=== PATIENT | female | born 1950 | race Caucasian/White ===

== ENCOUNTER → 2018-07-20 06:28 | Outpatient (CLI) | payer MEDICARE, SELFPAY ==
--- NOTE | 2018-07-20 06:37 | MRI_ITS ---
STUDY: MRI LUMBAR SPINE WITH AND WITHOUT CONTRAST REASON FOR EXAM: Female, 68 years old. Radiculitis. Bilateral leg pain. Prior surgical fusion. TECHNIQUE: Standardized fat and water weighted pulse sequences were obtained in the sagittal and axial planes. Dotarem 20 IV was administered for the contrast portion of the examination. COMPARISON: March 17, 2014 report. No images available. FINDINGS: Lumbar straightening. No significant scoliosis. Conus medullaris terminates normally at the L2 level. Posterior spinal fixation at L4 and L5 with multilevel laminectomy. Surgical scar. Paraspinal muscle atrophy. Expected enhancing surgical scar at the L4-5 and L5-S1 levels. No unexpected contrast enhancement. T12 superior endplate Schmorl's node. T12-L1: Normal endplates. Normal disc height, hydration and morphology. Normal bilateral facet joints. Normal central canal and bilateral lateral recesses. Normal bilateral intervertebral neural foramina. L1-2: Normal endplates. Normal disc height, hydration and morphology. Normal bilateral facet joints. Normal central canal and bilateral lateral recesses. Normal bilateral intervertebral neural foramina. L2-3: Normal endplates. Minimal disc desiccation. Normal bilateral facet joints. Normal central canal and bilateral lateral recesses. Normal bilateral intervertebral neural foramina. L3-4: Normal endplates. Minimal disc desiccation. Facet joint arthrosis. Mild central canal narrowing. Normal bilateral lateral recesses. Normal bilateral intervertebral neural foramina. Ligamentous hypertrophy contributes to central canal narrowing. L4-5: Mild endplate spondylosis. Disc bulge/uncovering without central canal narrowing. Moderate facet joint arthrosis. Normal central canal and bilateral lateral recesses. Bilateral neural foraminal narrowing without impingement. Intervertebral disc spacer. Grade 1 spondylolisthesis. L5-S1: Minimal endplate spondylosis. Left paracentral mixed scar/disc protrusion measuring 10 mm x 15 mm (axial image 2 series 5). Mild facet joint arthrosis. Left lateral recess narrowing with impingement. Bilateral neural foraminal narrowing with impingement on the left. Central canal decompression. Sacrum intact. Mild paraspinal muscle atrophy. Noncystic right renal lesion measuring 2.2 cm (axial image 16 series 5). Abnormal appearing nondilated distal aorta and iliac vessels ((axial images 3 through 26 series 8). MRI/Spine Lumbar W/WO Contrast IMPRESSION: L5-S1 left paracentral mixed scar/disc protrusion with surgically decompressed central canal L5-S1 left lateral recess and left neural foraminal narrowing with impingement L4-5 grade 1 spondylolisthesis with endplate spondylosis, disc spacer/disc uncovering and facet arthrosis L4-5 neural foraminal narrowing without impingement L3-4 ligamentous hypertrophy/facet joint arthrosis contributing to central canal narrowing Abnormal appearing nondilated distal aorta and iliac vessels (recommend contrast enhanced CT scan follow-up) Noncystic 2.2 cm right renal lesion (recommend contrast enhanced CT scan or MRI follow-up) Electronically Signed: Ricky Perkins DO at 12:44 EDT Tel , Service support ,
[2018-07-20 06:56] LABS: CREATININE FINGERSTICK 1.2 mg/dL (0.55-1.02)
== END ==
PROVIDERS: Family Provider Family Medicine; PCP Family Medicine; Referring Provider Family Medicine; Visit Provider Family Medicine
DX: M54.16 Radiculopathy, lumbar region (principal); Z01.812 Encounter for preprocedural laboratory examination
CPT/HCPCS: 72158; A9575

== ENCOUNTER → 2018-08-04 14:41 | Outpatient (CLI) | payer MEDICARE, SELFPAY ==
--- NOTE | 2018-08-04 14:46 | CT_ITS ---
STUDY: CT ABDOMEN AND PELVIS WITH CONTRAST REASON FOR EXAM: Female, 68 years old. Right renal mass. RADIATION DOSAGE (If Supplied By Facility): CTDIvol = ( 16.48 ) mGy, DLP = ( 1199.85 ) mGycm TECHNIQUE: Transaxial images were obtained from the dome of the diaphragm to the symphysis pubis without oral contrast. 100 IV Isovue 300 was administered. Sagittal and coronal images were reconstructed. Individualized dose optimization techniques were used for this CT. COMPARISON: None. FINDINGS: Mild degree of increased linear markings at the right lung base with subpleural blebs. Coronary artery calcification. There is decreased attenuation of the liver consistent with steatosis. There are surgical clips in the gallbladder fossa consistent with a prior cholecystectomy. Normal spleen. Normal pancreas. There is a small, circumscribed, smooth, low attenuation right adrenal mass, consistent with an adrenal adenoma. It measures 1.8 cm. Normal left adrenal gland. There is a 2.3 cm x 2.3 cm rounded hypodense nodule arising from the posterior inferior aspect of the right kidney. At that site, there is evidence of a cortical defect deep to this nodular density. This is an atypical cyst. Correlation with ultrasound is recommended for further evaluation. Normal left kidney. Normal visualized stomach. Normal small intestine. There are scattered colonic diverticula consistent with diverticulosis. The appendix is visualized and appears normal. There is diffuse atherosclerotic calcification of the abdominal aorta and the major visceral branches, without a demonstrated aneurysm. A femoral-femoral bypass graft is seen overlying the anterior lower pelvis. There is evidence of a left aortic iliac artery graft. There is occlusion of the right common iliac artery as well as the left common iliac artery with stents within. Normal inferior vena cava. Normal retroperitoneum. Normal urinary bladder. There is a small umbilical hernia containing mesentery. There is no evidence of bowel within the hernia. The patient is status post fusion at the L4-L5 level with laminectomy and prosthetic disc placement. There is evidence of disc space narrowing and grade 1 anterolisthesis of L4 on L5. CT/Abdomen/Pelvis WITH Contrast IMPRESSION: 2.3 cm x 2.3 cm rounded hypodense nodule in the posteroinferior aspect of the right kidney. This not a typical cyst. Correlation with ultrasound is recommended for further evaluation. Small right adrenal adenoma. Electronically Signed: Dany Crabtree, at 9:50 EDT , Service support ,
[2018-08-04 14:56] LABS: CREATININE FINGERSTICK 1.5 mg/dL (0.55-1.02)
== END ==
PROVIDERS: Family Provider Family Medicine; PCP Family Medicine; Referring Provider Urology; Visit Provider Urology
DX: N28.89 Other specified disorders of kidney and ureter (principal)
CPT/HCPCS: 74177

== ENCOUNTER → 2018-08-14 13:24 | Outpatient (CLI) | payer MEDICARE, SELFPAY ==
[2018-08-14 15:48] LABS: Anion Gap 6 (5-15); BUN 18 mg/dL (7-18); Calcium,Total 8.2 mg/dL (8.5-10.1); Chloride 105 mmol/L (98-107); EST Glomerular Filtration Rate 47 mL/min (>60); Est Glom Filt Rate - Afr Amer 57 mL/min (>60); Glucose 179 mg/dL (74-106); Potassium 4.3 mmol/L (3.5-5.1); Sodium Level 138 mmol/L (136-145)
== END ==
LOC: BFHLAB 13:25 → LAB 15:15
PROVIDERS: Family Provider Family Medicine; PCP Family Medicine; Referring Provider Family Medicine; Visit Provider Family Medicine
DX: I10 Essential (primary) hypertension (principal)
CPT/HCPCS: 36415; 80048

== ENCOUNTER → 2018-08-24 10:04 | Outpatient (CLI) | payer MEDICARE, SELFPAY ==
[2018-08-24 12:33] LABS: Anion Gap 5 (5-15); BUN 28 mg/dL (7-18); BUN/Creat Ratio 21.1 RATIO (10-20); Calcium,Total 8.2 mg/dL (8.5-10.1); Chloride 104 mmol/L (98-107); Creatinine, Serum 1.33 mg/dL (0.55-1.02); EST Glomerular Filtration Rate 42 mL/min (>60); Est Glom Filt Rate - Afr Amer 51 mL/min (>60); Glucose 224 mg/dL (74-106); Potassium 3.9 mmol/L (3.5-5.1); Sodium Level 136 mmol/L (136-145)
== END ==
PROVIDERS: Family Provider Family Medicine; PCP Family Medicine; Visit Provider Family Medicine
DX: I10 Essential (primary) hypertension (principal); E11.9 Type 2 diabetes mellitus without complications
CPT/HCPCS: 36415; 80048

== ENCOUNTER → 2019-04-13 14:21 | Outpatient (CLI) | payer MEDICARE, SELFPAY ==
[2019-04-13 17:44] LABS: Absolute Lymphocyte Count 1.46 X10^3/uL (0.83-4.51); Absolute Neutrophil Count 3.6 X10^3/uL (2.0-7.7); Basophil# 0.02 X10^3/uL; Basophil% 0.4 % (0-1); Eosinophil# 0.23 X10^3/uL; Hematocrit 34.3 % (37-47); Hemoglobin 10.5 g/dL (12.0-15.0); Lymphocyte # 1.46 X10^3/ul (4.0); Lymphocyte % 25.7 % (19-41); Mean Corp Hgb Conc 30.6 g/dL (32-36); Mean Corpuscular Hgb 28.2 pg (27.0-32.0); Mean Platelet Vol. 10.5 fl (6.2-12.0); Monocyte# 0.38 X10^3/uL; Monocyte% 6.7 % (0-10); NRBC Flagged by Analyzer 0 % (0-5); Neutrophil # 3.58 X10^3/uL (2.7-7.7); Neutrophil % 62.8 % (47-70); Platelet Count 141 K/mm3 (150-450); RBC Distribution Width CV 14.6 % (11.6-14.6); RBC Distribution Width SD 49.7 fl (35.1-43.9); Red Blood Count 3.73 M/mm3 (4.2-5.4); White Blood Count 5.7 K/mm3 (4.4-11.0)
[2019-04-13 18:06] LABS: Vitamin B12 295 pg/mL (211-911)
[2019-04-13 18:07] LABS: ALB/GLOB Ratio 0.8 RATIO (0.9-2.4); AST(SGOT) 19 U/L (15-37); Alanine Aminotransfer ALT/SGPT 18 U/L (13-56); Albumin, Serum 3.1 g/dL (3.2-5.0); Alkaline Phosphatase 77 U/L (45-117); Anion Gap 6 (5-15); BUN 15 mg/dL (7-18); BUN/Creat Ratio 13.8 RATIO (10-20); Calcium,Total 8.4 mg/dL (8.5-10.1); Chloride 111 mmol/L (98-107); Creatinine, Serum 1.09 mg/dL (0.55-1.02); EST Glomerular Filtration Rate 53 mL/min (>60); Est Glom Filt Rate - Afr Amer 64 mL/min (>60); Globulin 3.9 g/dL (2.2-4.2); Glucose 138 mg/dL (74-106); Iron 34 ug/dL (50-170); Sodium Level 142 mmol/L (136-145); Thyroid Stim Hormone (TSH) 1.53 uIU/mL (0.358-3.74)
== END ==
PROVIDERS: Family Provider Family Medicine; PCP Family Medicine; Visit Provider Family Medicine
DX: I10 Essential (primary) hypertension (principal); E11.9 Type 2 diabetes mellitus without complications; D64.9 Anemia, unspecified; R53.83 Other fatigue
CPT/HCPCS: 36415; 80053; 82607; 83540; 84443; 85025

== ENCOUNTER 2019-06-27 12:55 | Observation (INO) | payer MEDICARE, SELFPAY ==
[2019-06-27] VITALS (13 sets, daily range): BP systolic 141–235; BP diastolic 35–90; PULSE 59–75; RESP 16–18; TEMP 36.2–37.1; O2SAT 95–98; BMI 32.8; BMI 34.1
--- NOTE | 2019-06-27 13:17 | EKG12_ITS ---
Test Reason : CP Blood Pressure : / mmHG Vent. Rate : 071 BPM Atrial Rate : 071 BPM P-R Int : 154 ms QRS Dur : 076 ms QT Int : 420 ms P-R-T Axes : 059 043 062 degrees QTc Int : 456 ms Normal sinus rhythm Septal infarct , age undetermined Abnormal ECG Confirmed by ANGELICA MEDINA ([id number]), copy editor SHAWN RIDLEY ([id number]) on 06/30/2019 2:53:35 PM Referred By: EVAN/RAN Confirmed By:ANGELICA MEDINA
--- NOTE | 2019-06-27 13:17 | RAD_ITS ---
STUDY: X-RAY CHEST REASON FOR EXAM: Female, 69 years old. Chest pain TECHNIQUE: Frontal view of the chest COMPARISON: X-Ray Chest March 09, 2010 FINDINGS: Pulmonary vascular prominence is present without rey edema or consolidation. There are no pleural effusions. There is no pneumothorax. The heart is normal in size. The visualized osseous structures are within normal limits. RAD/Chest 1 View (Portable) IMPRESSION: Pulmonary vascular prominence without rey edema or consolidation. Electronically Signed: Hector Stone, at 14:19 EST Tel , Service support ,
[2019-06-27] MEDS: 0.9% Normal Saline 1,000 ML 150 ML IV (14:04)
[2019-06-27 14:15] LABS: Absolute Lymphocyte Count 1.34 X10^3/uL (0.83-4.51); Absolute Neutrophil Count 4.6 X10^3/uL (2.0-7.7); Basophil# 0.02 X10^3/uL; Basophil% 0.3 % (0-1); Eosinophil# 0.22 X10^3/uL; Eosinophils% 3.4 % (0-5); Hematocrit 35.1 % (37-47); Hemoglobin 10.7 g/dL (12.0-15.0); Lymphocyte # 1.34 X10^3/ul (4.0); Lymphocyte % 20.4 % (19-41); Mean Corp Hgb Conc 30.5 g/dL (32-36); Mean Corpuscular Volume 91.9 fL (81-99); Mean Platelet Vol. 9.5 fl (6.2-12.0); Monocyte# 0.37 X10^3/uL; Monocyte% 5.6 % (0-10); NRBC Flagged by Analyzer 0 % (0-5); Neutrophil % 70.1 % (47-70); Platelet Count 128 K/mm3 (150-450); RBC Distribution Width CV 16.1 % (11.6-14.6); RBC Distribution Width SD 54.4 fl (35.1-43.9); Red Blood Count 3.82 M/mm3 (4.2-5.4); White Blood Count 6.6 K/mm3 (4.4-11.0)
[2019-06-27 14:30] LABS: Anion Gap 3 (5-15); BUN 17 mg/dL (7-18); BUN/Creat Ratio 14.9 RATIO (10-20); Calcium,Total 8.8 mg/dL (8.5-10.1); Chloride 110 mmol/L (98-107); Creatinine, Serum 1.14 mg/dL (0.55-1.02); EST Glomerular Filtration Rate 50 mL/min (>60); Est Glom Filt Rate - Afr Amer 61 mL/min (>60); Estimated Creatinine Clearance 44.65 ml/min; Glucose 184 mg/dL (74-106); Potassium 4.2 mmol/L (3.5-5.1); Sodium Level 141 mmol/L (136-145)
[2019-06-27 14:35] LABS: Mucous, Urine 0 SEEN /hpf (<or=2+); Red Blood Cells-Urine 0 SEEN /hpf (0-5); Squamous Epithelial Cells - UA 0 SEEN /hpf (5-10)
[2019-06-27 14:37] LABS: Color, Urine Yellow (Yellow); Glucose, Dipstick Normal (Normal); Ketone-Dipstick Negative (Negative); Leukocyte Esterase-Dipstick 25 /ul (Negative); Nitrite-Dipstick Positive (Negative); Occult Blood-Urine 10 /ul (Negative); Protein-Dipstick 100 mg/dl (Negative); Specific Gravity, Urine 1.015 (1.002-1.030); Urine Bilirubin Dipstick Negative (Negative); Urine Clarity Clear (Clear); Urine Urobilinogen Normal (Normal); Urine pH 6.5 (5.0 - 8.0)
[2019-06-27 14:40] LABS: D-Dimer Quantitative (DVT/PE) 1.08 FEU/ug/m (0.27-0.49)
[2019-06-27 14:50] LABS: Bacteria 3+ /hpf (None Seen); White Blood Cells 5-10 SEEN /hpf (0-5)
--- NOTE | 2019-06-27 14:54 | CT_ITS ---
STUDY: CTA CHEST REASON FOR EXAM: Female, 69 years old. CHEST PAIN, ELEVATED BP RADIATION DOSAGE (If Supplied By Facility): CTDIvol = ( 12.66 ) mGy, DLP = ( 539.03 ) mGycm TECHNIQUE: The examination was performed with the intravenous administration of IV 100mL Isovue-370. Post-processing of the angiographic images was performed, with multiplanar reformation and 3D reconstruction. Individualized dose optimization techniques were used for this CT. COMPARISON: None. FINDINGS: There is a small ventral fat-containing hernia. Normal enhancement of the main pulmonary artery and right and left pulmonary arteries. Normal enhancement of the bilateral peripheral pulmonary arteries. There is no demonstrated pulmonary embolism. Normal thoracic aorta and visualized great vessels. There is no demonstrated aortic dissection. Normal heart and pericardium. Coronary artery calcifications are present. Normal mediastinum. Normal hilar regions. Normal visualized trachea and bronchi. The lungs are well expanded. Mild to moderate emphysema is present. There is mild peripheral interstitial thickening/groundglass opacification. Several scattered right upper lobe groundglass opacities are present. There is no consolidation. Normal pleura. Normal chest wall structures. Areas of mild endplate compression are present in the thoracic spine. Mild multilevel osteophytosis is present. Normal visualized upper abdomen. CT/CTA Chest W/WO Contrast IMPRESSION: No evidence of pulmonary embolism. [id number] emphysema. Mild peripheral interstitial thickening/ground glass opacification and several scattered right upper lobe groundglass opacities, possibly secondary to mild infectious or inflammatory process. No consolidation. Coronary artery calcifications. Small ventral fat-containing hernia. Electronically Signed: Hector Stone, at 15:39 EST Tel , Service support ,
--- NOTE | 2019-06-27 15:27 | ED.DCSUM_ITS ---
- ER Visit Summary Date of Service: 06/27/19 Chief Complaint: [Hypertension] History of Present Illness: The patient is a 69 F [presents the emergency department with about 3 days worth of hypertension. Patient states that over the last 3 days she has been checking her blood pressures frequently and they h ave been running in excess of 220 systolic over the 70s diastolic. Patient at home earlier today had a blood pressure of 240/99 and she became very concerned. She describes some nonspecific chest discomfort and cramping. Patient's complaint of intermittent headaches. Her left arm felt numb and tingly today. Denies recent illness. Patient has history of peripheral vascular disease and 6 months ago had a revascularization procedure involving her right iliac artery and aorta and states that she had to have a stress test prior to the surgery which took about 6 hours. Her stress test apparently was unremarkable. Patient has history of diabetes and coronary artery disease but she is had no cardiac intervention.] Physical Examination: [HEENT-PERRLA, EOMI. Cranial nerves II through XII grossly intact. TMs clear. Mucous membranes moist. No adenopathy. Cardiovascular-regular rate and rhythm without murmur or ectopy Lungs-clear to auscultation, chest wall stable without crepitus or subcu emphysema Abdomen-normoactive bowel sounds, soft, nontender, no rebound or rigidity, no peritoneal signs. Extremities-intact ?4, normal range of motion, normal pulses, atraumatic] Test Results: [EKG obtained arrival shows sinus rhythm with a ventricular rate of 71 bpm with no acute ST segment changes. CBC with differential showing a 6.6, hemoglobin 10.7, hematocrit 35, plates 128. Chemistries unremarkable. BUN was 17 and creatinine 1.14. Urinalysis was positive for 25 leukocyte esterase as well as nitrites and 5-10 WBCs and +3 bacteria. Urine culture was sent.] CTA of the chest showed mild to moderate emphysema and no evidence of PE or dissection. Did have cardiac calcifications. Emergency Department Course and Treatment: [Patient received labetalol 10 mg IV. Patient continues to have blood pressures of over 235.] Treatment Plan: [Admit] Disposition: [Admit] Impression: [Hypertensive emergency Chest pain ] This note was generated with [employer] dictation software. It may contain incorrect words, spelling, and punctuation that were not noted in review of the chart prior to signing ED Disposition - Plan for ED Patient: Referrals: Milan Márquez MD [Primary Care Provider] -
--- NOTE | 2019-06-27 16:06 | NURSING ---
[facility], [facility]
--- NOTE | 2019-06-27 16:28 | HP.PCM_ITS ---
<Nacho Brito - Last Filed: 06/27/19 16:28> Problem List (1) Chest pain Status: Acute (2) Hypertensive emergency Status: Acute (3) PVD (peripheral vascular disease) Status: Chronic (4) Obesity Status: Chronic (5) Depression Status: Chronic (6) Diabetes Status: Chronic Qualifiers: Diabetes mellitus type: type 2 (7) HLD (hyperlipidemia) Status: Chronic (8) GERD (gastroesophageal reflux disease) Status: Chronic (9) COPD (chronic obstructive pulmonary disease) Status: Chronic History of Present Illness Date of Admission: 06/27/19 Chief Complaint: chest pain The patient is a 69 year old F with pmhx HTN, HLD, DMt2, PVD, COPD, former smoker, obesity, cervical cancer in remission, who presents to the ER with c/o chest pain. The patients concerns began 3 days ago at the [facility] vascular surgery office. Her blood pressure was in the 200s. After the appointment she checked her pressures multiple times daily at home and noted it was in the 240s. She was having severe headaches as well. Today she developed chest pain prompting her to come to the ER. She describes CP left of sternum that is cramping in nature, with associated lightheadedness, left arm numbness, and nausea. She denies SOB. She had a negative stress test about 6 months ago. She received lebatolol x1 in the ER and still has BP in the 200s systolic. [] Past Medical History Past Medical History (Chronic Problems): Chronic Problems PVD (peripheral vascular disease) (Chronic) Obesity (Chronic) Depression (Chronic) Diabetes (Chronic) HLD (hyperlipidemia) (Chronic) GERD (gastroesophageal reflux disease) (Chronic) COPD (chronic obstructive pulmonary disease) (Chronic) Allergies aspirin [ASA] Adverse Reaction (Verified 06/27/19 12:58) Nausea codeine Adverse Reaction (Verified 06/27/19 12:58) Nausea Home Medications: Ambulatory Orders Medication Instructions Recorded Allopurinol 100 mg PO BID 06/27/19 B Complex with Vitamin C 1 ea PO DAILY 06/27/19 [B-Complex Plus Vitamin C] Ferrous Sulfate [Iron] 325 mg PO DAILY 06/27/19 Gabapentin [Neurontin] 300 mg PO BID 06/27/19 Glipizide 10 mg PO DAILY 06/27/19 Pantoprazole Sodium [Protonix] 40 mg PO DAILY 06/27/19 Plavix 75 mg PO DAILY 06/27/19 Pravastatin [Pravachol] 80 mg PO DAILY 06/27/19 Rivaroxaban [Xarelto] 2.5 mg PO BID 06/27/19 Sertraline HCl 100 mg PO DAILY 06/27/19 Tizanidine HCl 4 mg PO QHS 06/27/19 Surgical History: appendectomy, cholecystectomy, hysterectomy Psychiatric History: No pertinent psych hx [employer] History: cervical cancer Lives: Spouse/ Significant Other Smoking Status: Former smoker Tobacco Use: Non-smoker Alcohol: Occasional Drugs: None - *Family History Maternal History Items: Cancer - cervical Paternal History Items: Diabetes Review of Systems Constitutional: Denies: Chills, Fever, Weight Change HEENT: Denies: Head Aches, Sinus Congestion, Sinus Drainage Cardiovascular: Reports: Chest Pain, Light Headedness. Denies: Chest Pressure, Chest Tightness, Edema, Heaviness, Palpitations Respiratory: Denies: Cough, Shortness of Breath, Shortness of breath at rest, Shortness of breath upon exertion, Sputum production, Wheezing Gastrointestinal: Reports: Nausea. Denies: Abdominal Pain, Diarrhea, Vomiting Genitourinary: Denies: Dysuria Musculoskeletal: Denies: Joint Pain, Joint Tenderness Skin: Denies: Rash, Wounds Neurological: Denies: Numbness, Tingling, Focal weakness Psychiatric: Denies: Anxiety, Depression, Homicidal Ideations, Suicidal Ideations Hematologic/ Lymphatic: Denies: Easy Bruising, Easy Bleeding VTE Information - Inpt Only VTE Present on Admission: No VTE Mechan Device Prophylaxis: None VTE Pharm Prophylaxis ordered?: Yes Patient Problems: Active and Suspected Problems Chest pain (Acute) Hypertensive emergency (Acute) - Physical Exam Vitals/I&O's: Vital Signs Temp Pulse Resp BP Pulse Ox 97.7 F L 63 18 210/57 H 97 06/27/19 12:58 06/27/19 16:19 06/27/19 16:19 06/27/19 16:19 06/27/19 16:19 Oxygen Delivery Method Room Air Weight: 210 lb Body Mass Index (BMI) 32.8 General: Alert, Oriented x3, Cooperative HEENT: Atraumatic, PERRLA, EOMI, Normocephalic Neck: Supple, No JVD, Negative Carotid Bruits Lungs: Clear to auscultation, Normal air movement Cardiovascular: Regular rate, No murmurs Abdomen: Bowel Sounds Present, Soft, Non Tender Extremities: No edema, Capillary Refill Less than 3 Seconds Skin: No breakdown, - - petechial rash distal upper extremities Musculoskeletal: No Tenderness to Palpation of Joints or Extremities Neurological: Cranial nerves II-XII grossly intact Psych/Mental Status: Normal Affect, Appropriate Laboratory Results 06/27/19 13:55: WBC 6.6, RBC 3.82 L, Hgb 10.7 L, Hct 35.1 L, MCV 91.9, MCH 28.0, MCHC 30.5 L, RDW Std Deviation 54.4 H, RDW Coeff of Geovanna 16.1 H, Plt Count 128 L , MPV 9.5, Immature Gran % (Auto) 0.200, Neut % (Auto) 70.1 H, Lymph % (Auto) 20.4, [place] % (Auto) 5.6, Eos % (Auto) 3.4, Baso % (Auto) 0.3, Absolute Neuts (auto) 4.6, Absolute Lymphs (auto) 1.34, Nucleated RBC % 0 06/27/19 13:55: D-Dimer Quant (PE/DVT) 1.08 H* 06/27/19 13:55: Sodium 141, Potassium 4.2, Chloride 110 H, Carbon Dioxide 28.0, Anion Gap 3 L, BUN 17, Creatinine 1.14 H, Estim Creat Clear Calc 44.65, Est GFR (MDRD) Af Amer 61, Est GFR (MDRD) Non-Af 50 L, BUN/Creatinine Ratio 14.9, Glucose 184 H, Calcium 8.8, Troponin I < 0.015 06/27/19 14:30: Urine Color Yellow, Urine Clarity Clear, Urine pH 6.5, Ur Specific Brooks 1.015, Urine Protein 100 H, Urine Glucose (UA) Normal, Urine Ketones Negative, Urine Occult Blood 10 H, Urine Nitrite Positive H, Urine Bilirubin Negative, Urine Urobilinogen Normal, Ur Leukocyte Esterase 25 H, Urine RBC 0 SEEN, Urine WBC 5-10 SEEN, Ur Squamous Epith Cells 0 SEEN, Urine Bacteria 3+, Urine Mucus 0 SEEN Current Medications Sodium Chloride () 1,000 mls @ 150 mls/hr IV .[id number] AMBAR Last Admin: 06/27/19 14:04 Dose: 150 mls/hr Documented by: Assessment/Plan All Active Problems Chest pain (Acute) Hypertensive emergency (Acute) 1. Hypertensive emergency, chest pain - continue lebatolol, add lisinopril, norvasc. Trop neg. EKG negative. Urine microalbumin. D dimer up: CTA shows no PE, does now emphysemia, coronary calcifications, ground glass opacities. Stres test 6 months ago negative. Maintain on tele. Obtain Echo. 2. PVD - prior stents, follows [facility] vascular - Dr. Valentin. Continue plavix, xarelto 3. HLD - statin 4. DMt2 - glipizide, add SSI 5. COPD - no exacerbation - prn aerosols. emphysemia on CTA chest. 6. Depression - zoloft 7. GERD - ppi DVT ppx: xarelto This patient was seen by Nacho Brito PA-C under the supervision of Dr. Gómez <Mau Gómez F - Last Filed: 06/27/19 17:21> History of Present Illness The patient is a 69 year old F [] Past Medical History Allergies aspirin [ASA] Adverse Reaction (Verified 06/27/19 12:58) Nausea codeine Adverse Reaction (Verified 06/27/19 12:58) Nausea - Physical Exam Vitals/I&O's: Vital Signs Temp Pulse Resp BP Pulse Ox 97.7 F L 63 18 210/57 H 97 06/27/19 12:58 06/27/19 16:19 06/27/19 16:19 06/27/19 16:19 06/27/19 16:19 Oxygen Delivery Method Room Air Weight: 210 lb Body Mass Index (BMI) 32.8 Intake and Output for Last 24 Hours 06/25/19 06/26/19 06/27/19 23:59 23:59 23:59 Intake Total 1000 / 1000 Balance 1000 / 1000 Laboratory Results 06/27/19 13:55: WBC 6.6, RBC 3.82 L, Hgb 10.7 L, Hct 35.1 L, MCV 91.9, MCH 28.0, MCHC 30.5 L, RDW Std Deviation 54.4 H, RDW Coeff of Geovanna 16.1 H, Plt Count 128 L , MPV 9.5, Immature Gran % (Auto) 0.200, Neut % (Auto) 70.1 H, Lymph % (Auto) 20.4, [place] % (Auto) 5.6, Eos % (Auto) 3.4, Baso % (Auto) 0.3, Absolute Neuts (auto) 4.6, Absolute Lymphs (auto) 1.34, Nucleated RBC % 0 06/27/19 13:55: D-Dimer Quant (PE/DVT) 1.08 H* 06/27/19 13:55: Sodium 141, Potassium 4.2, Chloride 110 H, Carbon Dioxide 28.0, Anion Gap 3 L, BUN 17, Creatinine 1.14 H, Estim Creat Clear Calc 44.65, Est GFR (MDRD) Af Amer 61, Est GFR (MDRD) Non-Af 50 L, BUN/Creatinine Ratio 14.9, Glu cose 184 H, Calcium 8.8, Troponin I < 0.015 06/27/19 14:30: Urine Color Yellow, Urine Clarity Clear, Urine pH 6.5, Ur Specific Brooks 1.015, Urine Protein 100 H, Urine Glucose (UA) Normal, Urine Ketones Negative, Urine Occult Blood 10 H, Urine Nitrite Positive H, Urine Bilirubin Negative, Urine Urobilinogen Normal, Ur Leukocyte Esterase 25 H, Urine RBC 0 SEEN, Urine WBC 5-10 SEEN, Ur Squamous Epith Cells 0 SEEN, Urine Bacteria 3+, Urine Mucus 0 SEEN Current Medications Amlodipine Besylate (Norvasc) 5 mg PO DAILY COUNT INCLUDES THE [facility] Dextrose (D50w Syringe) 0 gm IV X1 PRN; Protocol PRN Reason: Hypoglycemia Glucagon () 1 mg IM .X1 PRN PRN Reason: Hypoglycemia Insulin Human Lispro (Humalog Kwikpen (Bkc)) 0 unit SC ACHS COUNT INCLUDES THE [facility]; Protocol Labetalol HCl (Trandate) 20 mg IV Q4H PRN PRN PRN Reason: SBP greater than 160 Lisinopril (Zestril) 10 mg PO DAILY COUNT INCLUDES THE [facility] Code Visit Addendum: Dr. Gómez I personally examined the patient and reviewed the chart. I agree with the above. 69-year-old female with a history of diabetes right leg as well as peripheral vascular disease who had stents placed in her lower extremities and states that she also had her aortic cleanout, presents with headache, lightheadedness, and chest pain that has been going on for the last week. Initially she saw her vascular surgeon a few days ago they noted a blood pressure in the 200s, she had been checking her blood pressure at home and it had also been high. On Friday she went to her primary care doctor and the blood pressure they had there was in the 130s so she did not come into the ER then however she continued to have blood pressures greater than 200 and so she presented to the ER today. She continues to have a headache and lightheadedness no blurry vision. Her troponin on admission was normal and her EKG was unremarkable. We will start her on lisinopril because she has an elevated urine protein and she is diabetic as well as Norvasc. Will have labetalol 20 mg IV every 4 hours as needed for blood pressures greater than 160. Will obtain an echo as well as a random urine protein creatinine ratio to evaluate her proteinuria. Can consult cardiology if any abnormality on her echo appears tomorrow. Of note she states that her doctor told her she did not need to be on diabetic medication because her A1c had normalized. Unfortunately she states that she had to start taking her glipizide again intermittently. I explained to her that she will likely need to continue to take her glipizide daily I will place her on a sliding scale insulin while she is here. Also she had an elevated d-dimer and therefore had a CTA of her chest which was unremarkable. OBSV E&M: 53320 Initial observation care L3
--- NOTE | 2019-06-27 17:12 | ECHOCS_ITS ---
Reason For Study: HYPERTENSION Procedure This was a 2D Doppler, Color Flow transthoracic echocardiogram. Exam performed portable in patient room. Left Ventricle Normal LV size. The estimated ejection fraction is 70 %. There is evidence of diastolic dysfunction. No regional wall motion abnormalities noted. Right Ventricle Normal RV size. Normal systolic function. Atria The left atrium is mildly enlarged. Normal right atrium. No doppler evidence for ASD. Mitral Valve There is mild mitral annular calcification. There is no mitral valve stenosis. No mitral valve insufficiency. Tricuspid Valve There is no tricuspid stenosis. Trivial tricuspid valve insufficiency. Unable to estimate RV systolic pressure due to insufficient tricuspid regurgitant envelope. Aortic Valve Trisinus/trileaflet aortic valve. There is no aortic stenosis. No aortic valve insufficiency. Pulmonic Valve There is no pulmonic valvular stenosis. No pulmonic valve insufficiency identified. Great Vessels Normal aortic root. Pericardium/Pleural No pericardial effusion. Medication Diluted definity 4ml given slow IV push to enhance endocardial definition. MMode/2D Measurements & Calculations LVIDd: 4.4 cm IVSd: 1.0 cm Ao root diam: 2.6 cm LVIDs: 3.1 cm LVPWd: 1.0 cm RVDd: 3.8 cm FS: 30.7 % LAV(MOD-bp): 68.5 ml LVAd ap4: 38.8 cm2 SV(MOD-sp4): 98.3 ml LAV(MOD-bp) Indexed: 33.1 ml/m2 EDV(MOD-sp4): 154.1 ml LAV(MOD-sp2): 69.0 ml EDV(sp4-el): 161.0 ml LAV(MOD-sp4): 68.2 ml LVAs ap4: 20.9 cm2 ESV(MOD-sp4): 55.8 ml ESV(sp4-el): 57.9 ml EF(MOD-sp4): 63.8 % EF(sp4-el): 64.0 % SV(sp4-el): 103.1 ml LA A4 area: 22.0 cm2 LA dimension(2D): 4.2 cm RA A4 area: 16.6 cm2 Time Measurements MV dec time: 0.25 sec Doppler Measurements & Calculations MV E max romel: 111.6 cm/sec Lat Peak E' Romel: 9.5 cm/sec Med Peak E' Romel: 8.5 cm/sec MV A max romel: 125.5 cm/sec E/E' lat: 11.8 E/E' med: 13.1 MV E/A: 0.89 Ao V2 max: 165.7 cm/sec LV V1 max: 124.6 cm/sec PA V2 max: 117.8 cm/sec Ao max P.0 mmHg LV V1 max P.2 mmHg Interpretation Summary The estimated ejection fraction is 70 %. There is evidence of diastolic dysfunction. The left atrium is mildly enlarged. The study was technically difficult. Contrast injection was performed. Ordering Physician: Mau Gómez Referring Physician: JEFF OQUENDO Performed By: Mony Caraballo RDCS
[2019-06-27] MEDS: Lisinopril 10 MG Tablet PO (17:43)
[2019-06-27] MEDS: amLODIPine 5 MG Tablet PO (17:43)
[2019-06-27 17:45] LABS: Bedside Glucose 111 mg/dL (70-110)
[2019-06-27 18:58] LABS: Protein, Urine (Random) 115.6 mg/dL (<11.9); Protein:Creat Ratio 1762 mg/g CRE (0-200)
[2019-06-27] MEDS: Acetaminophen 325 MG Tablet 650 MG PO (19:28)
[2019-06-27] MEDS: 0.9% Saline Lock 10 ML Syringe IV (20:17)
[2019-06-27 22:55] LABS: Bedside Glucose 202 mg/dL (70-110)
[2019-06-27] MEDS: Insulin Lispro 100 UNIT/ML INSULN.PEN SC (22:56)
[2019-06-27] MEDS: Gabapentin 300 MG Capsule PO (22:58)
[2019-06-27] MEDS: Pravastatin 80 MG Tablet PO (22:58)
[2019-06-27] MEDS: Rivaroxaban 2.5 MG Tablet PO (22:58)
[2019-06-27] MEDS: tiZANidine HCl 2 MG Tablet 4 MG PO (22:58)
[2019-06-27] MEDS: Allopurinol 100 MG Tablet PO (22:59)
[2019-06-28] VITALS (8 sets, daily range): BP systolic 132–160; BP diastolic 44–62; PULSE 55–67; RESP 16–18; TEMP 36.2–37.2; O2SAT 95–97
[2019-06-28 06:51] LABS: Bedside Glucose 156 mg/dL (70-110)
[2019-06-28] MEDS: Insulin Lispro 100 UNIT/ML INSULN.PEN SC ×2 (06:54→11:31)
[2019-06-28] MEDS: Acetaminophen 325 MG Tablet 650 MG PO (06:54)
[2019-06-28 07:08] LABS: Absolute Lymphocyte Count 1.63 X10^3/uL (0.83-4.51); Absolute Neutrophil Count 4.4 X10^3/uL (2.0-7.7); Basophil# 0.04 X10^3/uL; Basophil% 0.6 % (0-1); Eosinophil# 0.26 X10^3/uL; Eosinophils% 3.9 % (0-5); Hematocrit 33.2 % (37-47); Hemoglobin 10.4 g/dL (12.0-15.0); Lymphocyte # 1.63 X10^3/ul (4.0); Lymphocyte % 24.3 % (19-41); Mean Corp Hgb Conc 31.3 g/dL (32-36); Mean Corpuscular Hgb 28.8 pg (27.0-32.0); Mean Platelet Vol. 10.5 fl (6.2-12.0); Monocyte# 0.38 X10^3/uL; Monocyte% 5.7 % (0-10); NRBC Flagged by Analyzer 0 % (0-5); Neutrophil # 4.38 X10^3/uL (2.7-7.7); Neutrophil % 65.1 % (47-70); Platelet Count 118 K/mm3 (150-450); RBC Distribution Width CV 16.5 % (11.6-14.6); RBC Distribution Width SD 54.9 fl (35.1-43.9); Red Blood Count 3.61 M/mm3 (4.2-5.4); White Blood Count 6.7 K/mm3 (4.4-11.0)
[2019-06-28 07:26] LABS: ALB/GLOB Ratio 0.8 RATIO (0.9-2.4); AST(SGOT) 18 U/L (15-37); Alanine Aminotransfer ALT/SGPT 18 U/L (13-56); Albumin, Serum 2.9 g/dL (3.2-5.0); Alkaline Phosphatase 72 U/L (45-117); Anion Gap 7 (5-15); BUN 17 mg/dL (7-18); BUN/Creat Ratio 15.7 RATIO (10-20); Calcium,Total 8.6 mg/dL (8.5-10.1); Chloride 107 mmol/L (98-107); Creatinine, Serum 1.08 mg/dL (0.55-1.02); EST Glomerular Filtration Rate 53 mL/min (>60); Est Glom Filt Rate - Afr Amer 64 mL/min (>60); Estimated Creatinine Clearance 45.37 ml/min; Globulin 3.8 g/dL (2.2-4.2); Glucose 162 mg/dL (74-106); Potassium 3.9 mmol/L (3.5-5.1); Protein, Total 6.7 g/dL (6.4-8.2); Sodium Level 140 mmol/L (136-145)
[2019-06-28] MEDS: 0.9% Saline Lock 10 ML Syringe IV (08:58)
[2019-06-28] MEDS: Pantoprazole Sodium 40 MG Tablet PO (09:10)
[2019-06-28] MEDS: amLODIPine 5 MG Tablet PO (09:10)
[2019-06-28] MEDS: Sertraline 100 MG Tablet PO (09:10)
[2019-06-28] MEDS: Gabapentin 300 MG Capsule PO (09:10)
[2019-06-28] MEDS: Allopurinol 100 MG Tablet PO (09:10)
[2019-06-28] MEDS: Lisinopril 10 MG Tablet PO (09:10)
[2019-06-28] MEDS: Rivaroxaban 2.5 MG Tablet PO (09:10)
[2019-06-28] MEDS: Clopidogrel Bisulfate 75 MG Tablet PO (09:10)
[2019-06-28] MEDS: Ferrous Sulfate 325 MG Tablet PO (11:33)
[2019-06-28 12:01] LABS: Bedside Glucose 206 mg/dL (70-110)
--- NOTE | 2019-06-28 15:57 | PCM.DC ---
- Discharge Diagnoses Current Active Problems: Current Active and Chronic Problems Chest pain (Acute) Hypertensive emergency (Acute) PVD (peripheral vascular disease) (Chronic) Obesity (Chronic) Depression (Chronic) Diabetes (Chronic) HLD (hyperlipidemia) (Chronic) GERD (gastroesophageal reflux disease) (Chronic) COPD (chronic obstructive pulmonary disease) (Chronic) You will use the following diet at home:: Calorie/Carbohydrate Controlled (specify 1200, 1400, etc) - 1800 satnam / day, Cardiac Your food should be the consistency of: Regular Your liquids should be the consistency of: Regular/Thin Discharge Activity: Return to Normal Activity Allergies/Adverse Reactions: Allergies aspirin [ASA] Adverse Reaction (Verified 06/27/19 17:53) Nausea codeine Adverse Reaction (Verified 06/27/19 17:53) Nausea Medications to take at Discharge Allopurinol 100 mg PO BID 06/27/19 B Complex with Vitamin C [B-Complex Plus Vitamin C] 1 ea PO DAILY 06/27/19 Ferrous Sulfate [Iron] 325 mg PO DAILY 06/27/19 Gabapentin [Neurontin] 300 mg PO BID 06/27/19 Glipizide 10 mg PO QHS 06/27/19 Pantoprazole Sodium [Protonix] 40 mg PO DAILY 06/27/19 Plavix 75 mg PO DAILY 06/27/19 Pravastatin [Pravachol] 80 mg PO QHS 06/27/19 Rivaroxaban [Xarelto] 2.5 mg PO BID 06/27/19 Sertraline HCl 100 mg PO DAILY 06/27/19 Tizanidine HCl 4 mg PO QHS 06/27/19 Amlodipine [Norvasc] 5 mg PO DAILY #30 tab 06/28/19 Lisinopril [Zestril] 10 mg PO DAILY #30 tab 06/28/19 The following prescriptions were given: Amlodipine [Norvasc] 5 mg PO DAILY #30 tab Transmission Status: Pending to [facility] Lisinopril [Zestril] 10 mg PO DAILY #30 tab Transmission Status: Pending to [facility] Primary Care Physician: Milan Márquez MD [Primary Care Provider] - Please follow up with your Primary Care Physician in: 1-2 weeks Test Results: Test results from this visit will be discussed in further detail at your follow-up appointment, if applicable. Proposed Discharge Date: 06/28/19
--- NOTE | 2019-06-28 15:58 | DS.PCM_ITS ---
<Nacho Brito - Last Filed: 06/28/19 15:58> Discharge Date and Diagnosis - Problem List Patient Problems: Active and Suspected Problems Chest pain (Acute) Hypertensive emergency (Acute) Date of Admission: 06/27/19 Date of Discharge: 06/28/19 - Primary Discharge Diagnosis Active and Suspected Problems Chest pain 2/2 Hypertensive emergency DMt2 with obesity PVD HLD COPD GERD Depression - Secondary Discharge Diagnosis Chronic Problems PVD (peripheral vascular disease) (Chronic) Obesity (Chronic) Depression (Chronic) Diabetes (Chronic) HLD (hyperlipidemia) (Chronic) GERD (gastroesophageal reflux disease) (Chronic) COPD (chronic obstructive pulmonary disease) (Chronic) Hospital Course and Treatment Imaging Results: RAD/Chest 1 View (Portable) IMPRESSION: Pulmonary vascular prominence without rey edema or consolidation. CT/CTA Chest W/WO Contrast IMPRESSION: No evidence of pulmonary embolism. [id number] emphysema. Mild peripheral interstitial thickening/ground glass opacification and several scattered right upper lobe groundglass opacities, possibly secondary to mild infectious or inflammatory process. No consolidation. Coronary artery calcifications. Small ventral fat-containing hernia. Echo: Interpretation Summary The estimated ejection fraction is 70 %. There is evidence of diastolic dysfunction. The left atrium is mildly enlarged. The study was technically difficult. Contrast injection was performed. Operations: None Procedures: 2-D Echocardiogram Summary of Care Provided: Hospital course: The patient is a 69 year old F past medical history of hypertension, hyperlipidemia, type 2 diabetes, GERD, COPD, cervical cancer in remission, former smoker, who presented to the emergency room with complaints of chest pain. This began 3 days prior to presentation. She was at her vascular surgeon's office and noted that her systolic blood pressure was in the 200s. She had been checked multiple times at home over the next 3 days and it did become as high as 240 systolic. She was also having severe headaches daily. She came to the emergency room and was found to have severely elevated blood pr essure with pressure up to 235/56 which remained elevated despite labetalol. EKG was negative, she had no vision changes, she had negative troponin, and CT was negative for PE. She had also had a stress test 6 months prior which was negative. She was felt to have chest pain secondary to hypertensive emergency. She was admitted to the PCU and placed on telemetry and started on lisinopril and Norvasc. Her blood pressure improved significantly overnight and as her blood pressure improved her chest pain resolved completely. The following morning an echocardiogram was obtained with no acute findings, results as above. We did check urine protein, she does have some protein in her urine and lisinopril should be continued, Norvasc will also be continued as she has significantly improved blood pressure. She will need to follow-up with her PCP regarding these changes, and may need further adjustment of her blood pressure medications. She was discharged home in stable condition, follow-up with PCP in 1 to 2 weeks. This patient was seen by Nacho Brito PA-C under the supervision of Doctor Tate. [] Patient Problems: Active and Suspected Problems Chest pain (Acute) Hypertensive emergency (Acute) - Physical Exam Vitals/I&O's: Vital Signs Temp Pulse Resp BP Pulse Ox 98.6 F 67 16 132/50 H 97 06/28/19 10:30 06/28/19 14:59 06/28/19 10:30 06/28/19 10:30 06/28/19 10:30 Oxygen Delivery Method Room Air Weight: 211 lb 6.773 oz Body Mass Index (BMI) 34.1 Intake and Output for Last 24 Hours 06/26/19 06/27/19 06/28/19 23:59 23:59 23:59 Intake Total 1000 / 1250 1270 / 1270 Balance 1000 / 1250 1270 / 1270 General: Alert, Oriented x3, Cooperative HEENT: Atraumatic, PERRLA, EOMI, Normocephalic Neck: Supple, No JVD, Negative Carotid Bruits Lungs: Clear to auscultation, Normal air movement Cardiovascular: Regular rate, No murmurs Abdomen: Bowel Sounds Present, Soft, Non Tender, Obese Extremities: No edema, Capillary Refill Less than 3 Seconds Skin: No rashes, No breakdown Musculoskeletal: No Tenderness to Palpation of Joints or Extremities Neurological: Cranial nerves II-XII grossly intact Psych/Mental Status: Normal Affect, Appropriate, Alert and oriented to time, place, person, mood and affect Microbiology Past 72 Hours 06/27/19 14:30 Urine, Clean Catch Urine Culture - Preliminary Gram negative chapo Laboratory Results 06/27/19 14:30: U Random Total Protein 115.6 H, Urine Creatinine 65.60, Protein/Creatinin Ratio 1762 H 06/27/19 17:32: POC Glucose 111 H 06/27/19 22:47: POC Glucose 202 H 06/28/19 06:46: WBC 6.7, RBC 3.61 L, Hgb 10.4 L, Hct 33.2 L, MCV 92.0, MCH 28.8, MCHC 31.3 L, RDW Std Deviation 54.9 H, RDW Coeff of Geovanna 16.5 H, Plt Count 118 L , MPV 10.5, Immature Gran % (Auto) 0.400, Neut % (Auto) 65.1, Lymph % (Auto) 2 4.3, [place] % (Auto) 5.7, Eos % (Auto) 3.9, Baso % (Auto) 0.6, Absolute Neuts (auto) 4.4, Absolute Lymphs (auto) 1.63, Nucleated RBC % 0 06/28/19 06:46: Sodium 140, Potassium 3.9, Chloride 107, Carbon Dioxide 26.0, Anion Gap 7, BUN 17, Creatinine 1.08 H, Estim Creat Clear Calc 45.37, Est GFR (MDRD) Af Amer 64, Est GFR (MDRD) Non-Af 53 L, BUN/Creatinine Ratio 15.7, Glucose 162 H, Calcium 8.6, Total Bilirubin 0.40, AST 18, ALT 18, Alkaline Phosphatase 72, Total Protein 6.7, Albumin 2.9 L, Globulin 3.8, Albumin/Globulin Ratio 0.8 L 06/28/19 06:46: POC Glucose 156 H 06/28/19 11:28: POC Glucose 206 H Current Medications Acetaminophen (Tylenol) 650 mg PO Q4H PRN PRN PRN Reason: HEADACHE Last Admin: 06/28/19 06:54 Dose: 650 mg Documented by: Allopurinol (Zyloprim) 100 mg PO BID [facility] Last Admin: 06/28/19 09:10 Dose: 100 mg Documented by: Amlodipine Besylate (Norvasc) 5 mg PO DAILY [facility] Last Admin: 06/28/19 09:10 Dose: 5 mg Documented by: Clopidogrel Bisulfate (Plavix) 75 mg PO DAILY [facility] Last Admin: 06/28/19 09:10 Dose: 75 mg Documented by: Dextrose (D50w Syringe) 0 gm IV X1 PRN; Protocol PRN Reason: Hypoglycemia Ferrous Sulfate (Ferrous Sulfate) 325 mg PO 1200 [facility] Last Admin: 06/28/19 11:33 Dose: 325 mg Documented by: Gabapentin (Neurontin) 300 mg PO BID [facility] Last Admin: 06/28/19 09:10 Dose: 300 mg Documented by: Glucagon () 1 mg IM .X1 PRN PRN Reason: Hypoglycemia Insulin Human Lispro (Humalog Kwikpen (Bkc)) 0 unit SC ACHS [facility]; Protocol Last Admin: 06/28/19 11:31 Dose: 4 u Documented by: Labetalol HCl (Trandate) 20 mg IV Q4H PRN PRN PRN Reason: SBP greater than 160 Last Admin: 06/27/19 20:17 Dose: 20 mg Documented by: Lisinopril (Zestril) 10 mg PO DAILY [facility] Last Admin: 06/28/19 09:10 Dose: 10 mg Documented by: Pantoprazole Sodium (Protonix) 40 mg PO DAILY [facility] Last Admin: 06/28/19 09:10 Dose: 40 mg Documented by: Pravastatin Sodium (Pravachol) 80 mg PO QHS [facility] Last Admin: 06/27/19 22:58 Dose: 80 mg Documented by: Rivaroxaban (Xarelto) 2.5 mg PO BID [facility] Last Admin: 06/28/19 09:10 Dose: 2.5 mg Documented by: Sertraline HCl (Zoloft) 100 mg PO DAILY [facility] Last Admin: 06/28/19 09:10 Dose: 100 mg Documented by: Sodium Chloride () 10 - 40 ml IV UD PRN PRN Reason: SALINE FLUSH Last Admin: 06/28/19 08:58 Dose: 10 ml Documented by: Tizanidine HCl (Zanaflex) 4 mg PO QHS [facility] Last Admin: 06/27/19 22:58 Dose: 4 mg Documented by: Discharge Diet: Low fat/ Low Cholesterol, 1800 Calorie Control Diet, 2000 mg Sodium Diet Discharge Activity: Return to Normal Activity Home Medications: Medications to take at Discharge Allopurinol 100 mg PO BID 06/27/19 B Complex with Vitamin C [B-Complex Plus Vitamin C] 1 ea PO DAILY 06/27/19 Ferrous Sulfate [Iron] 325 mg PO DAILY 06/27/19 Gabapentin [Neurontin] 300 mg PO BID 06/27/19 Glipizide 10 mg PO QHS 06/27/19 Pantoprazole Sodium [Protonix] 40 mg PO DAILY 06/27/19 Plavix 75 mg PO DAILY 06/27/19 Pravastatin [Pravachol] 80 mg PO QHS 06/27/19 Rivaroxaban [Xarelto] 2.5 mg PO BID 06/27/19 Sertraline HCl 100 mg PO DAILY 06/27/19 Tizanidine HCl 4 mg PO QHS 06/27/19 Amlodipine [Norvasc] 5 mg PO DAILY #30 tab 06/28/19 Lisinopril [Zestril] 10 mg PO DAILY #30 tab 06/28/19 Following Prescrptions Were Given to Patient: Amlodipine [Norvasc] 5 mg PO DAILY #30 tab Transmission Status: Received by [facility] Lisinopril [Zestril] 10 mg PO DAILY #30 tab Transmission Status: Received by [facility] Primary Care Physician: Milan Márquez MD [Primary Care Provider] - Please follow up with your Primary Care Physician in: 1-2 weeks Disposition: Home Minutes spent on discharge:: 35 Patient Condition:: Stable Medical Necessity - Tobacco Use Smoking Status: Former smoker Tobacco Use: Non-smoker Meaningful Use Info Meaningful Use Diagnoses (Choose all that apply): None applicable <Esau Ybarra - Last Filed: 06/28/19 16:58> Discharge Date and Diagnosis - Primary Discharge Diagnosis Active and Suspected Problems Chest pain (Acute) Hypertensive emergency (Acute) - Secondary Discharge Diagnosis Chronic Problems PVD (peripheral vascular disease) (Chronic) Obesity (Chronic) Depression (Chronic) Diabetes (Chronic) HLD (hyperlipidemia) (Chronic) GERD (gastroesophageal reflux disease) (Chronic) COPD (chronic obstructive pulmonary disease) (Chronic) Hospital Course and Treatment Summary of Care Provided: This patient was seen in conjunction with Nacho Brito PA-C . I have independently interviewed and examined the patient and reviewed pertinent historical, laboratory, and other data. Please refer to Nacho Brito PA-C note for details of this patient's presentation, findings, and recommendations. I have reviewed Nacho Brito PA-C note and concur with documented findings. In brief, patient is a 69-year-old female admitted with chest discomfort and markedly elevated blood pressure. Admitted to monitored bed for subsequent management Hospital course as documented above - Physical Exam Vitals/I&O's: Vital Signs Temp Pulse Resp BP Pulse Ox 98.9 F 62 16 160/62 H 95 06/28/19 16:26 06/28/19 16:26 06/28/19 16:26 06/28/19 16:26 06/28/19 16:26 Oxygen Delivery Method Room Air Weight: 95.9 kg Body Mass Index (BMI) 34.1 Intake and Output for Last 24 Hours 06/26/19 06/27/19 06/28/19 23:59 23:59 23:59 Intake Total 1000 / 1250 1270 / 1270 Balance 1000 / 1250 1270 / 1270 Microbiology Past 72 Hours 06/27/19 14:30 Urine, Clean Catch Urine Culture - Preliminary Gram negative chapo Laboratory Results 06/27/19 14:30: U Random Total Protein 115.6 H, Urine Creatinine 65.60, Protein/Creatinin Ratio 1762 H 06/27/19 17:32: POC Glucose 111 H 06/27/19 22:47: POC Glucose 202 H 06/28/19 06:46: WBC 6.7, RBC 3.61 L, Hgb 10.4 L, Hct 33.2 L, MCV 92.0, MCH 28.8, MCHC 31.3 L, RDW Std Deviation 54.9 H, RDW Coeff of Geovanna 16.5 H, Plt Count 118 L, MPV 10.5, Immature Gran % (Auto) 0.400, Neut % (Auto) 65.1, Lymph % (Auto) 24.3, [place] % (Auto) 5.7, Eos % (Auto) 3.9, Baso % (Auto) 0.6, Absolute Neuts (auto) 4.4, Absolute Lymphs (auto) 1.63, Nucleated RBC % 0 06/28/19 06:46: Sodium 140, Potassium 3.9, Chloride 107, Carbon Dioxide 26.0, Anion Gap 7, BUN 17, Creatinine 1.08 H, Estim Creat Clear Calc 45.37, Est GFR (MDRD) Af Amer 64, Est GFR (MDRD) Non-Af 53 L, BUN/Creatinine Ratio 15.7, Glucose 162 H, Calcium 8.6, Total Bilirubin 0.40, AST 18, ALT 18, Alkaline Phosphatase 72, Total Protein 6.7, Albumin 2.9 L, Globulin 3.8, Albumin/Globulin Ratio 0.8 L 06/28/19 06:46: POC Glucose 156 H 06/28/19 11:28: POC Glucose 206 H Current Medications Acetaminophen (Tylenol) 650 mg PO Q4H PRN PRN PRN Reason: HEADACHE Last Admin: 06/28/19 06:54 Dose: 650 mg Documented by: Allopurinol (Zyloprim) 100 mg PO BID [facility] Last Admin: 06/28/19 09:10 Dose: 100 mg Documented by: Amlodipine Besylate (Norvasc) 5 mg PO DAILY [facility] Last Admin: 06/28/19 09:10 Dose: 5 mg Documented by: Clopidogrel Bisulfate (Plavix) 75 mg PO DAILY [facility] Last Admin: 06/28/19 09:10 Dose: 75 mg Documented by: Dextrose (D50w Syringe) 0 gm IV X1 PRN; Protocol PRN Reason: Hypoglycemia Ferrous Sulfate (Ferrous Sulfate) 325 mg PO 1200 [facility] Last Admin: 06/28/19 11:33 Dose: 325 mg Documented by: Gabapentin (Neurontin) 300 mg PO BID [facility] Last Admin: 06/28/19 09:10 Dose: 300 mg Documented by: Glucagon () 1 mg IM .X1 PRN PRN Reason: Hypoglycemia Insulin Human Lispro (Humalog Kwikpen (Bkc)) 0 unit SC ACHS [facility]; Protocol Last Admin: 06/28/19 11:31 Dose: 4 u Documented by: Labetalol HCl (Trandate) 20 mg IV Q4H PRN PRN PRN Reason: SBP greater than 160 Last Admin: 06/27/19 20:17 Dose: 20 mg Documented by: Lisinopril (Zestril) 10 mg PO DAILY [facility] Last Admin: 06/28/19 09:10 Dose: 10 mg Documented by: Pantoprazole Sodium (Protonix) 40 mg PO DAILY [facility] Last Admin: 06/28/19 09:10 Dose: 40 mg Documented by: Pravastatin Sodium (Pravachol) 80 mg PO QHS [facility] Last Admin: 06/27/19 22:58 Dose: 80 mg Documented by: Rivaroxaban (Xarelto) 2.5 mg PO BID [facility] Last Admin: 06/28/19 09:10 Dose: 2.5 mg Documented by: Sertraline HCl (Zoloft) 100 mg PO DAILY [facility] Last Admin: 06/28/19 09:10 Dose: 100 mg Documented by: Sodium Chloride () 10 - 40 ml IV UD PRN PRN Reason: SALINE FLUSH Last Admin: 06/28/19 08:58 Dose: 10 ml Documented by: Tizanidine HCl (Zanaflex) 4 mg PO QHS [facility] Last Admin: 06/27/19 22:58 Dose: 4 mg Documented by: Code Visit OBSV E&M: [id number] Observation care discharge
== END 2019-06-28 15:57 | disposition home or self-care (01) ==
LOC: ED 16:05 → PCU 16:25
PROVIDERS: Admitting Provider Family Medicine; Emergency Provider Emergency Medicine; PCP Family Medicine; Visit Provider Internal Medicine
DX: I16.1 Hypertensive emergency (principal); R07.89 Other chest pain; I10 Essential (primary) hypertension; E11.51 Type 2 diabetes mellitus with diabetic peripheral angiopathy without gangrene; I25.10 Atherosclerotic heart disease of native coronary artery without angina pectoris; F32.9 Major depressive disorder, single episode, unspecified; E78.5 Hyperlipidemia, unspecified; J44.9 Chronic obstructive pulmonary disease, unspecified; K21.9 Gastro-esophageal reflux disease without esophagitis; E66.9 Obesity, unspecified; Z68.34 Body mass index [BMI] 34.0-34.9, adult; Z79.899 Other long term (current) drug therapy; Z79.01 Long term (current) use of anticoagulants; Z79.84 Long term (current) use of oral hypoglycemic drugs; Z71.3 Dietary counseling and surveillance; Z87.891 Personal history of nicotine dependence
CPT/HCPCS: 36415; 71045; 71275; 80048; 80053; 81001; 82570; 82962; 84156; 84484; 85025; 85379; 87077; 87086; 87088; 87186; 93005; 93306; 96361; 96374; 96376; 99218; 99285; J7030; Q9957; Q9967; A4216; C8929; G0378

== ENCOUNTER 2019-09-28 13:35 | Inpatient (IN) | payer MEDICARE, SELFPAY ==
[2019-06-27 17:24] VITALS: BMI 34.1
[2019-09-28] VITALS (15 sets, daily range): BP systolic 96–167; BP diastolic 39–73; PULSE 72–91; RESP 12–30; TEMP 36.6–37.1; O2SAT 94–100; BMI 36.3; BMI 35.5
[2019-09-28] MEDS: Albuterol 2.5 MG/3 ML VIAL.NEB. INHALATION ×3 (14:00→22:33)
--- NOTE | 2019-09-28 14:02 | EKG12_ITS ---
Test Reason : SOB Blood Pressure : / mmHG Vent. Rate : 083 BPM Atrial Rate : 083 BPM P-R Int : 128 ms QRS Dur : 084 ms QT Int : 400 ms P-R-T Axes : 043 050 -44 degrees QTc Int : 470 ms Normal sinus rhythm Nonspecific ST and T wave abnormality Abnormal ECG Confirmed by ANGELICA MEDINA [id number]), online editor TIM BROWN ([id number]) on 09/30/2019 2:21:21 PM Referred By: Confirmed By:ANGELICA MEDINA
--- NOTE | 2019-09-28 14:14 | ED.VIS.GEN ---
History of Present Illness Chief Complaint: Shortness of Breath Detail of Chief Complaint: Also complains of cough Informant: Patient Onset: Today - Patient states cough started today, Yesterday - Shortness of breath started yesterday. Context: Sudden Onset Timing: Continuous Quality: Respiratory distress Location: Respiratory Current Severity: Mild Maximum Severity: Severe Worsened by: Cough and activity Relieved by: Improved after patient was placed on BiPAP Associated Symptoms: No other symptoms Narrative: Patient is a 69-year-old woman who was recently admitted and cared for at [facility]. She had surgery medial left leg. Wound was left open. Patient is uncertain why the wound was left open. She presents today because of shortness of breath that started last evening and cough that started today. She denies fever or chills. She denies headache, visual, ocular or auditory symptoms. She denies rhinorrhea, congestion or postnasal drainage. She denies sore throat. She denies change in voice or smell. She states the cough is minimally productive. She does not know the color of the sputum. She did not note blood. She denies increased leg pain or swelling. She denies pleuritic chest pain. She denies GI symptoms. She denies dysuria, frequency, urgency or hematuria. Prior similar symptoms: No Recent Illness/Hospitalization: Yes - Past Medical History (1) History of hypertension Status: Acute (2) PVD (peripheral vascular disease) Status: Chronic (3) Obesity Status: Chronic (4) Depression Status: Chronic (5) Diabetes Status: Chronic (6) HLD (hyperlipidemia) Status: Chronic (7) GERD (gastroesophageal reflux disease) Status: Chronic (8) COPD (chronic obstructive pulmonary disease) Status: Chronic Past Medical History - Allergies and Home Meds Allergies/Adverse Reactions: Allergies aspirin [ASA] Adverse Reaction (Verified 09/28/19 13:40) Nausea codeine Adverse Reaction (Verified 09/28/19 13:40) Nausea Primary Care Physician: Milan Márquez MD [Primary Care Provider] - Prior records reviewed: Yes Surgical History: appendectomy, cholecystectomy, hysterectomy Lives: Retirement Smoking Status: Former smoker Alcohol: None Drugs: None - Family History Maternal Family History: Reports: Cancer - cervical Paternal Family History: Reports: Diabetes Review of Systems General: Denies: Chills, Fever, Malaise, Subjective Eyes: Denies: Visual changes - bilaterally, Blurred Vision - bilaterally ENT: Denies: Bilateral ear pain, Rhinorrhea, Sore throat Cardiovascular: Denies: Chest pain, Palpitations Respiratory: Reports: Dyspnea, Cough, Sputum, Dyspnea on exertion. Denies: Orthopnea, Paroxysmal nocturnal dyspnea, -, - Gastrointestinal: Denies: Abdominal pain, Nausea, Vomiting, Diarrhea, Melena, Hematochezia Genitourinary: Denies: Dysuria, Hematuria, Frequency Musculoskeletal: Denies: Myalgias, Arthralgias, Neck pain, Back pain, Extremity Pain Skin: Denies: Rash, Abscess, Abrasions, Wounds Neurological: Denies: Headache, Weakness, Numbness Psych: Denies: Depression, Anxiety Endocrine: Denies: Polyuria, Polydipsia Hematologic: Denies: Easy bruising, Easy bleeding Allergy: Denies: Uticaria, Swelling of the mouth Physical Exam Vital Signs/Narrative: Vital Signs Temp Pulse Resp BP Pulse Ox 09/28/19 13:35 98.6 F 88 28 H 114/46 L 97 Inital Vital Signs reviewed: Yes General: Well nourished, Well developed, Obese, Acute Distress Head: Normocephalic, Atraumatic Eyes: Perrl, EOMI. Negative for: Pale conjunctiva, Scleral icterus ENT: No rhinorrhea, TM's clear, Dry mucous membranes Neck: Supple, Nontender, No lymphadenopathy, No JVD Cardiovascular: Regular rate, Regular rhythm, No murmurs, Normal S1, Normal S2 Respiratory: Chest nontender, Rales - Bilaterally left greater than right., Wheezing - Bilaterally with increased expiratory phase., Decreased Air Movement - Creased air movement right greater than left. Abdomen: Soft, Nontender, Nondistended, Normal bowel sounds Rectal: - - Is a 2.5 cm x 4 mm stage I decubitus gluteal crease noted. Patient has incontinence of stool as well. : - - Genitalia appear normal. Back: Nontender, Normal Inspection. Negative for: CVA tenderness, Spinal tenderness Extremities: - - Open wound with minimal erythema along the wound edge. The wound itself does not appear infected. There is granulation tissue noted.. Negative for: Nontender, No edema, Tenderness, Edema Skin: Normal color, No Trauma. Negative for: Cyanosis, Diaphoresis, Jaundice Neurological: Alert, Oriented x3, Cranial nerves II-XII grossly intact, Normal Strength, Normal Sensation Psychological: Normal affect Diagnostic/Tx/Re-eval Chest X-Ray - ED: 1 View, Read by ED Physician, Normal, Heart, Mediastinum, Bony Structures, Chronic Changes, CHF, - - Film is rotated. The film was compared to prior. There is fluid in the fissure with curly B-lines consistent with CHF. There is mild increased interstitial markings which is probably congestive heart failure superimposed on scarring. The x-ray is rotated. ABG reveals an increased AA gradient. ABG was obtained on BiPAP with an IP of 12 PEEP of 6 and 40% oxygen. pH was 7.32, PCO2 40.4, PCO2 117, base excess -2, bicarb 23.5 with a 98% saturation. Graft patient's vital signs improved markedly after treatment with aerosol and BiPAP. Time of this addendum is 1446. Impressions Chest X-Ray 09/28/19 14:55 IMPRESSION: Findings in keeping with a mild degree of CHF superimposed on pulmonary scarring. Electronically Signed: Dany Crabtree, at 15:19 EDT , Service support , 09/28/19 14:55 Chest 1 View (Portable) [RAD] Stat Laboratory Results 09/28/19 09/28/19 09/28/19 14:07 14:07 14:07 WBC 9.5 RBC 2.84 L Hgb 8.4 L Hct 28.4 L MCV 100.0 H MCH 29.6 MCHC 29.6 L RDW Std Deviation 63.5 H RDW Coeff of Geovanna 17.7 H Plt Count 356 MPV 9.1 Immature Gran % (Auto) 0.700 Neut % (Auto) 84.0 H Lymph % (Auto) 8.4 L [place] % (Auto) 5.6 Eos % (Auto) 0.8 Baso % (Auto) 0.5 Absolute Neuts (auto) 8.0 H Absolute Lymphs (auto) 0.80 L Nucleated RBC % 0 pH Bicarbonate Actual POC Total CO2 Base Excess O2 Saturation ABG pCO2 ABG pO2 Sodium 138 Potassium 3.9 Chloride 103 Carbon Dioxide 26.0 Anion Gap 9 BUN 25 H Creatinine 1.54 H Estim Creat Clear Calc 31.82 Est GFR (MDRD) Af Amer 43 L Est GFR (MDRD) Non-Af 35 L BUN/Creatinine Ratio 16.2 Glucose 182 H Lactic Acid 1.8 Calcium 8.3 L Total Bilirubin 0.60 AST 21 ALT 18 Alkaline Phosphatase 89 Troponin I 0.337 H Total Protein 6.7 Albumin 2.5 L Globulin 4.2 Albumin/Globulin Ratio 0.6 L Urine Color Urine Clarity Urine pH Ur Specific [place] Urine Protein Urine Glucose (UA) Urine Ketones Urine Occult Blood Urine Nitrite Urine Bilirubin Urine Urobilinogen Ur Leukocyte Esterase Urine RBC Urine WBC Ur Squamous Epith Cells Urine Bacteria Urine Mucus 09/28/19 09/28/19 14:33 14:42 WBC RBC Hgb Hct MCV MCH MCHC RDW Std Deviation RDW Coeff of Geovanna Plt Count MPV Immature Gran % (Auto) Neut % (Auto) Lymph % (Auto) [place] % (Auto) Eos % (Auto) Baso % (Auto) Absolute Neuts (auto) Absolute Lymphs (auto) Nucleated RBC % pH 7.37 Bicarbonate Actual 23.5 POC Total CO2 25 Base Excess -2 O2 Saturation 98 ABG pCO2 40.4 ABG pO2 117 H Sodium Potassium Chloride Carbon Dioxide Anion Gap BUN Creatinine Estim Creat Clear Calc Est GFR (MDRD) Af Amer Est GFR (MDRD) Non-Af BUN/Creatinine Ratio Glucose Lactic Acid Calcium Total Bilirubin AST ALT Alkaline Phosphatase Troponin I Total Protein Albumin Globulin Albumin/Globulin Ratio Urine Color Yellow Urine Clarity Sl. Cloudy Urine pH 5.0 Ur Specific [place] 1.025 Urine Protein 100 H Urine Glucose (UA) Normal Urine Ketones Negative Urine Occult Blood 10 H Urine Nitrite Positive H Urine Bilirubin Negative Urine Urobilinogen 4 H Ur Leukocyte Esterase 25 H Urine RBC 0-5 SEEN Urine WBC 0-5 SEEN Ur Squamous Epith Cells 0-5 SEEN Urine Bacteria 2+ Urine Mucus 0 SEEN - EKG Initial EKG Interpretation: Sinus Rhythm - EKG was performed at 1347. EKG reveals a sinus rhythm with a ventricular rate 83. OR interval 128 ms. QRS duration 84 ms. QT duration 400 ms. [place] is normal. There is minimal nonspecific ST-T wave changes that are in all likelihood due to respiratory distress. In my opinion the EKG is unremarkable. - Medical Decision Making Patient presents with shortness of breath and cough. This may represent infectious etiology and specifically hospital-acquired pneumonia, viral infection including COVID. Pulmonary embolus is in the differential as well. Because of patient's respiratory distress she was started on BiPAP prior to me seeing her. ABG was obtained to assess acid-base status. Chest x-ray to evaluate for pneumonia, pneumothorax and other cause. EKG to rule out cardiac ischemia. CBC to assess white count as well as H&H to rule out anemia. Because she is diabetic basic metabolic panel was obtained to assess blood sugar and anion gap as well as renal function. Because she has history of COPD and there is wheezing noted she was treated with a DuoNeb and albuterol. Patient's UA is consistent with urinary tract infection. Initially Zosyn was ordered to cover both respiratory and urologic pathogens. In light of chest x-ray finding patient will only need antibiotic coverage for urologic pathogens. Review of prior records indicates patient does not have history of congestive heart failure. This will need work-up. Since patient is on BiPAP will page hospitalist for admission to intensive care unit. - Critical Care Time Critical care time (excluding procedures): 30-74 minutes - Care time 33 minutes this included obtaining history, review of prior records, documentation, physician care, discussion with admitting physician., Discussing w/Patient &/or Family/User Experience Team Lead, Discussing w/Consultants, Arranging Admission or Transfer ED Disposition - Plan for ED Patient: Disposition: Acute Care Hospital [facility] Diagnosis: Acute respiratory failure with hypoxia, Urinary tract infection, Severe sepsis with acute organ dysfunction, Anemia in chronic illness, Hypertension, New onset of congestive heart failure, Decubitus ulcer of sacral region, stage 1 Referrals: Milan Márquez MD [Primary Care Provider] -
[2019-09-28] MEDS: Ipratropium/Albuterol Sulfate 3 ML AMPUL.NEB INHALATION (14:34)
[2019-09-28 14:36] LABS: Basophil# 0.05 X10^3/uL; Basophil% 0.5 % (0-1); Eosinophil# 0.08 X10^3/uL; Eosinophils% 0.8 % (0-5); Hematocrit 28.4 % (37-47); Hemoglobin 8.4 g/dL (12.0-15.0); Lymphocyte % 8.4 % (19-41); Mean Corp Hgb Conc 29.6 g/dL (32-36); Mean Corpuscular Hgb 29.6 pg (27.0-32.0); Mean Platelet Vol. 9.1 fl (6.2-12.0); Monocyte# 0.53 X10^3/uL; Monocyte% 5.6 % (0-10); NRBC Flagged by Analyzer 0 % (0-5); Neutrophil # 7.99 X10^3/uL (2.7-7.7); Platelet Count 356 K/mm3 (150-450); RBC Distribution Width CV 17.7 % (11.6-14.6); RBC Distribution Width SD 63.5 fl (35.1-43.9); Red Blood Count 2.84 M/mm3 (4.2-5.4); White Blood Count 9.5 K/mm3 (4.4-11.0)
[2019-09-28] MEDS: 0.9% Normal Saline 1,000 ML 150 ML IV (14:38)
[2019-09-28 14:41] LABS: Mucous, Urine 0 SEEN /hpf (<or=2+)
[2019-09-28 14:45] LABS: ALB/GLOB Ratio 0.6 RATIO (0.9-2.4); AST(SGOT) 21 U/L (15-37); Alanine Aminotransfer ALT/SGPT 18 U/L (13-56); Albumin, Serum 2.5 g/dL (3.2-5.0); Alkaline Phosphatase 89 U/L (45-117); Anion Gap 9 (5-15); BUN 25 mg/dL (7-18); BUN/Creat Ratio 16.2 RATIO (10-20); Calcium,Total 8.3 mg/dL (8.5-10.1); Chloride 103 mmol/L (98-107); Creatinine, Serum 1.54 mg/dL (0.55-1.02); EST Glomerular Filtration Rate 35 mL/min (>60); Est Glom Filt Rate - Afr Amer 43 mL/min (>60); Estimated Creatinine Clearance 31.82 ml/min; Globulin 4.2 g/dL (2.2-4.2); Glucose 182 mg/dL (74-106); Potassium 3.9 mmol/L (3.5-5.1); Protein, Total 6.7 g/dL (6.4-8.2); Sodium Level 138 mmol/L (136-145)
[2019-09-28 14:51] LABS: Lactic Acid 1.8 mmol/L (0.4-1.9)
[2019-09-28 14:51] LABS: Base Excess -2 mmol/L (-2 to +2); Bicarbonate 23.5 mmol/L (22-26); PO2 117 mmHG (75-100); SO2 98 % (95-99); Total Carbon Dioxide 25 mmol/L; pCO2 40.4 mmHg (35-45); pH 7.37 (7.35-7.45)
[2019-09-28 14:52] LABS: Color, Urine Yellow (Yellow); Glucose, Dipstick Normal (Normal); Ketone-Dipstick Negative (Negative); Leukocyte Esterase-Dipstick 25 /ul (Negative); Nitrite-Dipstick Positive (Negative); Occult Blood-Urine 10 /ul (Negative); Protein-Dipstick 100 mg/dl (Negative); Specific Gravity, Urine 1.025 (1.002-1.030); Urine Bilirubin Dipstick Negative (Negative); Urine Clarity Sl. Cloudy (Clear); Urine Urobilinogen 4 mg/dl (Normal)
--- NOTE | 2019-09-28 14:55 | RAD_ITS ---
STUDY: X-RAY CHEST REASON FOR EXAM: Female, 69 years old. COUGH AND SOB TECHNIQUE: Single AP portable view of the chest. COMPARISON: Comparison is made with prior examination dated June 27, 2019. FINDINGS: EKG electrodes are seen. Since prior study, there has been a progression of increased interstitial markings suggestive of a mild degree of CHF superimposed on the pulmonary scarring. There is no demonstrated pleural abnormality. There is borderline cardiomegaly. Normal mediastinum and mignon. Normal visualized pulmonary arteries. There is atherosclerotic calcification of the aortic arch with tortuosity. There are diffuse degenerative changes of the visualized thoracic spine. Normal visualized ribs, clavicles, and shoulders. There is no demonstrated abnormality of the visualized soft tissue structures of the upper abdomen. RAD/Chest 1 View (Portable) IMPRESSION: Findings in keeping with a mild degree of CHF superimposed on pulmonary scarring. Electronically Signed: Dany Crabtree, at 15:19 EDT , Service support ,
[2019-09-28 15:01] LABS: Bacteria 2+ /hpf (None Seen); Red Blood Cells-Urine 0-5 SEEN /hpf (0-5); Squamous Epithelial Cells - UA 0-5 SEEN /hpf (5-10); White Blood Cells 0-5 SEEN /hpf (0-5)
[2019-09-28 15:34] LABS: Allen Test POS; Blood Gas Specimen Type ART; EPAP 6; FI02 40; IPAP 12; O2 Delivery Device Bi Pap; SITE R RADIAL; Time Given 1335
[2019-09-28 16:05] LABS: BNP,B-Type NATRIURETIC PEPTIDE 659.7 pg/mL (0-100)
[2019-09-28 16:07] LABS: International Normalized Ratio 1.3; Prothrombin Time (Protime)PT. 16.1 SECONDS (11.7-14.9)
[2019-09-28 16:08] LABS: Partial Thromboplast Time 25.2 Seconds (24.1-36.2)
--- NOTE | 2019-09-28 16:45 | ED.RN ---
jimmie martines called and wanted an update on pt status. pt verbally gave permission to speak with her and son. son requested additional update if any changes in pt plan of care. jimmie martines [phone]
[2019-09-28] MEDS: Furosemide 20 MG/2 ML VIAL IV (17:12)
--- NOTE | 2019-09-28 17:58 | PCM.HP.STD ---
Problem List (1) Acute respiratory failure with hypoxia Status: Acute (2) Decubitus ulcer of sacral region, stage 1 Status: Chronic (3) New onset of congestive heart failure Status: Acute (4) Severe sepsis with acute organ dysfunction Status: Ruled-out (5) Urinary tract infection Status: Ruled-out (6) Anemia in chronic illness Status: Chronic (7) Hypertension Status: Chronic (8) History of hypertension Status: Chronic (9) COPD (chronic obstructive pulmonary disease) Status: Chronic (10) Depression Status: Chronic (11) Diabetes Status: Chronic Qualifiers: Diabetes mellitus type: type 2 (12) GERD (gastroesophageal reflux disease) Status: Chronic (13) HLD (hyperlipidemia) Status: Chronic (14) Obesity Status: Chronic (15) PVD (peripheral vascular disease) Status: Chronic History of Present Illness Date of Admission: 09/28/19 Chief Complaint: short of breath The patient is a 69 year old F states that she has not been feeling well overall after being discharged from [facility] after a vascular bypass in her left lower extremity. Denies any fever chills nor cough. Today, became short of breath. Presented to the emergency room and was on a nonrebreather and then changed over to a BiPAP where her pulse ox has been stable at 100%. Patient chest x-ray is concerning for CHF, BNP was 659.7, troponin was 0.337. Patient did receive Pipracil and/tazobactam, furosemide and IV fluids in the emergency room. Patient states that she is currently feeling better at this time. Patient states that this does feel similar to when she has had exacerbations of her COPD. [] Past Medical History Past Medical History (Chronic Problems): Chronic Problems PVD (peripheral vascular disease) (Chronic) Obesity (Chronic) Depression (Chronic) Diabetes (Chronic) HLD (hyperlipidemia) (Chronic) GERD (gastroesophageal reflux disease) (Chronic) COPD (chronic obstructive pulmonary disease) (Chronic) History of hypertension (Chronic) Anemia in chronic illness (Chronic) Hypertension (Chronic) Decubitus ulcer of sacral region, stage 1 (Chronic) Allergies aspirin [ASA] Adverse Reaction (Verified 09/28/19 13:40) Nausea codeine Adverse Reaction (Verified 09/28/19 13:40) Nausea Home Medications: Ambulatory Orders Medication Instructions Recorded Allopurinol 200 mg PO DAILY 06/27/19 B Complex with Vitamin C 1 tab PO DAILY 06/27/19 [B-Complex Plus Vitamin C] Gabapentin [Neurontin] 300 - 600 mg PO QHS 06/27/19 Glipizide 10 mg PO BID 06/27/19 Pantoprazole Sodium [Protonix] 40 mg PO DAILY 06/27/19 Pravastatin [Pravachol] 80 mg PO QHS 06/27/19 Rivaroxaban [Xarelto] 2.5 mg PO BID 06/27/19 Sertraline HCl 100 mg PO DAILY 06/27/19 Tizanidine HCl 4 mg PO Q6H PRN PRN 06/27/19 Lisinopril [Zestril] 10 mg PO DAILY #30 tab 06/28/19 Acetaminophen 500 - 1,000 mg PO Q6H PRN PRN 09/28/19 Albuterol Aerosols [Ventolin 2.5 mg INHALATION TID 09/28/19 Aerosols] Albuterol IH (ProAir) [Proair Hfa 2 puff INHALATION Q4H PRN PRN 09/28/19 (SP)Vent Pts] Amlodipine [Norvasc] 10 mg PO DAILY 09/28/19 Clopidogrel Bisulfate [Clopidogrel] 75 mg PO DAILY 09/28/19 Oxycodone [Oxyir] 5 mg PO Q6H PRN PRN 09/28/19 Sulfacetamide Sodium [Sulf-10] 1 drp OPHTHALMIC (EYE) 4X/DAY 09/28/19 Surgical History: appendectomy, cholecystectomy, hysterectomy Psychiatric History: No pertinent psych hx [employer] History: cervical cancer Lives: [facility] Smoking Status: Former smoker Tobacco Use: Cigars Alcohol: None Drugs: None - *Family History Maternal History Items: Cancer - cervical Paternal History Items: Diabetes Review of Systems Constitutional: Reports: Malaise. Denies: Anorexia, Chills, Fever, Night Sweats Eyes: Denies: Blurred vision, Double vision HEENT: Denies: Head Aches, Sinus Congestion, Sinus Drainage Cardiovascular: Denies: Chest Pain, Palpitations Respiratory: Reports: Shortness of Breath. Denies: Cough Gastrointestinal: Denies: Abdominal Pain, Nausea, Vomiting Genitourinary: Denies: Dysuria Musculoskeletal: Denies: Joint Pain, Joint Tenderness Skin: Reports: Wounds - On left lower extremity. Patient states that that has been present for some time. Had recent bypass vascularity [facility]. Neurological: Denies: Numbness, Tingling, Focal weakness Psychiatric: Denies: Anxiety, Depression, Homicidal Ideations, Suicidal Ideations Hematologic/ Lymphatic: Denies: Easy Bruising, Easy Bleeding, Hx of blood clot Comment: All review of systems were negative except as mentioned above in the history of present illness and the other review of systems. VTE Information - Inpt Only VTE Present on Admission: No VTE Mechan Device Prophylaxis: None VTE Pharm Prophylaxis ordered?: No Reason prophylaxis not ordered:: Treatment Not Indicated Patient Problems: Active and Suspected Problems Acute respiratory failure with hypoxia (Acute) New onset of congestive heart failure (Acute) - Physical Exam Vitals/I&O's: Vital Signs Temp Pulse Resp BP Pulse Ox 36.9 C 75 15 167/47 H 100 09/28/19 17:47 09/28/19 17:47 09/28/19 17:47 09/28/19 17:47 09/28/19 17:47 Oxygen Delivery Method Bi-pap Weight: 102.1 kg Body Mass Index (BMI) 36.3 Intake and Output for Last 24 Hours 09/26/19 09/27/19 09/28/19 23:59 23:59 23:59 Intake Total 100 / 100 Balance 100 / 100 General: Alert, Cooperative, No apparent distress, - - On BiPAP. No conversational dyspnea, no respiratory distress. HEENT: Atraumatic, Normocephalic, - - No icterus Neck: No Nodes, Thyroid Normal Size and Texture Lungs: Diminished, - - Coarse breath sounds bilaterally Cardiovascular: Regular rate, Regular Rhythm, Normal S1, Normal S2, No murmurs Abdomen: Bowel Sounds Present, Soft, Non Tender, Non-Distended, No Hepato-splenomegaly Extremities: No edema, Capillary Refill Less than 3 Seconds Skin: - - Large clean wound on medial [place]. Patient does have medial incisions from her recent bypass with zenaida still in place that are well approximated. Musculoskeletal: No Tenderness to Palpation of Joints or Extremities Neurological: Deep Tendon Reflexes 2+/4 and Symmetrical, - - No clonus Psych/Mental Status: Normal Affect, Appropriate Microbiology Past 72 Hours 09/28/19 14:15 Mucosa - Nasopharyngeal Coronavirus COVID-19 PCR - Preliminary Laboratory Results 09/28/19 14:07: Sodium 138, Potassium 3.9, Chloride 103, Carbon Dioxide 26.0, Anion Gap 9, BUN 25 H, Creatinine 1.54 H, Estim Creat Clear Calc 31.82, Est GFR (MDRD) Af Amer 43 L, Est GFR (MDRD) Non-Af 35 L, BUN/Creatinine Ratio 16.2, Glucose 182 H, Calcium 8.3 L, Total Bilirubin 0.60, AST 21, ALT 18, Alkaline Phosphatase 89, Troponin I 0.337 H, Total Protein 6.7, Albumin 2.5 L, Globulin 4.2, Albumin/Globulin Ratio 0.6 L 09/28/19 14:07: WBC 9.5, RBC 2.84 L, Hgb 8.4 L, Hct 28.4 L, MCV 100.0 H, MCH 29.6, MCHC 29.6 L, RDW Std Deviation 63.5 H, RDW Coeff of Geovanna 17.7 H, Plt Count 356, MPV 9.1, Immature Gran % (Auto) 0.700, Neut % (Auto) 84.0 H, Lymph % (Auto) 8.4 L, [place] % (Auto) 5.6, Eos % (Auto) 0.8, Baso % (Auto) 0.5, Absolute Neuts (auto) 8.0 H, Absolute Lymphs (auto) 0.80 L, Nucleated RBC % 0 09/28/19 14:07: PT 16.1 H, INR 1.3, APTT 25.2 09/28/19 14:07: Lactic Acid 1.8 09/28/19 14:07: B-Natriuretic Peptide 659.7 H 09/28/19 14:33: Urine Color Yellow, Urine Clarity Sl. Cloudy, Urine pH 5.0, Ur Specific [place] 1.025, Urine Protein 100 H, Urine Glucose (UA) Normal, Urine Ketones Negative, Urine Occult Blood 10 H, Urine Nitrite Positive H, Urine Bilirubin Negative, Urine Urobilinogen 4 H, Ur Leukocyte Esterase 25 H, Urine RBC 0-5 SEEN, Urine WBC 0-5 SEEN, Ur Squamous Epith Cells 0-5 SEEN, Urine Bacteria 2+, Urine Mucus 0 SEEN 09/28/19 14:42: Specimen Type ART, Sample Site R RADIAL, pH 7.37, Bicarbonate Actual 23.5, POC Total CO2 25, Base Excess -2, O2 Saturation 98, O2 % 40, ABG pCO2 40.4, ABG pO2 117 H, Johnny Test POS, O2 Delivery Device Bi Pap, EPAP 6, IPAP 12, Blood Gas Notified Whom ED MD, Blood Gas Notified Time 1335 Chest x-ray reviewed and showed pulmonary vascular congestion. Current Medications Sodium Chloride () 1,000 mls @ 150 mls/hr IV .[id number] [facility] Last Admin: 09/28/19 14:38 Dose: 150 mls/hr Documented by: Assessment/Plan All Active Problems Acute respiratory failure with hypoxia (Acute) Urinary tract infection (Ruled-out) Severe sepsis with acute organ dysfunction (Ruled-out) New onset of congestive heart failure (Acute) 1. Acute hypoxic respiratory failure: No documented hypoxia but patient did require BiPAP. Suspicion is that this is due to heart failure with possible exacerbation of COPD. Patient currently on BiPAP and wean as tolerated. I think patient would tolerate weaning down. Treat the underlying processes. Patient being checked for COVID though patient's risk profile for it is low in addition she does not have any leukocytosis. If COVID testing is negative then I would presume that to be true negative given the pretest probability is being low. 2. Acute heart failure with preserved ejection fraction: EF of 70% from echocardiogram from June 28. Patient will be on furosemide 40 mg twice daily, continue with lisinopril. Fluid restrictions. Daily weights. Cardiology consultation, discussed with Dr. Rivera. 3. Elevated troponins: Unclear if this is a non-STEMI or demand ischemia. We will cycle troponins. Patient will be anticoagulated with heparin for now. 4. Possible acute exacerbation of COPD: Continue with her home bronchodilators. Methylprednisolone for now. 5. Acute kidney injury: Creatinine 1.54 and was 1.08 back in June. Granted this could be gradual worsening of her kidney function but will monitor closely particular the patient being on diuretics. 6. VTE prophylaxis: Low risk as patient will be anticoagulated 7. Peripheral arterial disease: Patient had recent bypass at [facility] roughly 3 weeks ago. Still has zenaida in place. We will request records from [facility]. Continue with clopidogrel. 8. Left lower extremity wound: Looks clean not infected. Consult wound care and again request records from [facility] in regards to their eventual plan for this wound. 9. Advanced care planning: Discussed with the patient. Patient wishes to be full CODE STATUS at this time. Inpatient E&M: 13692 Init Hosp L3
[2019-09-28] MEDS: Furosemide 40 MG/4 ML Vial IV (18:37)
[2019-09-28 18:56] LABS: Partial Thromboplast Time 28.2 Seconds (24.1-36.2)
[2019-09-28] MEDS: oxyCODONE 5 MG Tablet PO (19:10)
--- NOTE | 2019-09-28 20:38 | NURSING ---
Gave report to Emmy in PCU, patient will go into PCU 118
[2019-09-28] MEDS: Rivaroxaban 2.5 MG Tablet PO (22:32)
[2019-09-28] MEDS: Pravastatin 80 MG Tablet PO (22:34)
[2019-09-28] MEDS: Gabapentin 300 MG Capsule PO (22:44)
[2019-09-28 22:51] LABS: Bedside Glucose 153 mg/dL (70-110)
[2019-09-29] VITALS (10 sets, daily range): BP systolic 116–151; BP diastolic 46–74; PULSE 65–90; RESP 18–22; TEMP 36.4–37.1; O2SAT 94–95
[2019-09-29] MEDS: oxyCODONE 5 MG Tablet PO ×2 (02:32→09:31)
[2019-09-29 04:49] LABS: Absolute Lymphocyte Count 0.38 X10^3/uL (0.83-4.51); Absolute Neutrophil Count 7.5 X10^3/uL (2.0-7.7); Basophil# 0.02 X10^3/uL; Basophil% 0.2 % (0-1); Eosinophil# 0.01 X10^3/uL; Eosinophils% 0.1 % (0-5); Hemoglobin 8.8 g/dL (12.0-15.0); Lymphocyte # 0.38 X10^3/ul (4.0); Lymphocyte % 4.6 % (19-41); Mean Corp Hgb Conc 31.4 g/dL (32-36); Mean Corpuscular Hgb 30.6 pg (27.0-32.0); Mean Corpuscular Volume 97.2 fL (81-99); Mean Platelet Vol. 9.8 fl (6.2-12.0); Monocyte% 3.6 % (0-10); NRBC Flagged by Analyzer 0.2 % (0-5); Neutrophil # 7.49 X10^3/uL (2.7-7.7); Neutrophil % 91.1 % (47-70); POSITIVE DIFFERENTIAL YES; Platelet Count 278 K/mm3 (150-450); RBC Distribution Width CV 17.3 % (11.6-14.6); RBC Distribution Width SD 61.5 fl (35.1-43.9); Red Blood Count 2.88 M/mm3 (4.2-5.4); White Blood Count 8.2 K/mm3 (4.4-11.0)
[2019-09-29 05:09] LABS: ALB/GLOB Ratio 0.6 RATIO (0.9-2.4); AST(SGOT) 31 U/L (15-37); Alanine Aminotransfer ALT/SGPT 19 U/L (13-56); Albumin, Serum 2.5 g/dL (3.2-5.0); Alkaline Phosphatase 87 U/L (45-117); Anion Gap 10 (5-15); BUN 25 mg/dL (7-18); BUN/Creat Ratio 18.1 RATIO (10-20); Calcium,Total 8.3 mg/dL (8.5-10.1); Chloride 105 mmol/L (98-107); Creatinine, Serum 1.38 mg/dL (0.55-1.02); EST Glomerular Filtration Rate 40 mL/min (>60); Est Glom Filt Rate - Afr Amer 49 mL/min (>60); Estimated Creatinine Clearance 35.51 ml/min; Globulin 4.3 g/dL (2.2-4.2); Glucose 163 mg/dL (74-106); Potassium 4.4 mmol/L (3.5-5.1); Protein, Total 6.8 g/dL (6.4-8.2); Sodium Level 139 mmol/L (136-145)
[2019-09-29] MEDS: 0.9% Saline Lock 10 ML Syringe IV ×3 (05:18→13:40)
[2019-09-29 05:32] LABS: Differential Indicated SCAN CRITERIA MET
[2019-09-29 05:47] LABS: Hypochromasia 1+; Platelet Estimate ADEQUATE (ADEQ); Polychromasia 1+
[2019-09-29] MEDS: Insulin Lispro 100 UNIT/ML INSULN.PEN SC ×2 (06:35→11:13)
[2019-09-29 06:50] LABS: Bedside Glucose 216 mg/dL (70-110)
--- NOTE | 2019-09-29 09:04 | ECHOCS_ITS ---
Reason For Study: CAD Procedure This was a 2D Doppler, Color Flow transthoracic echocardiogram. The study was technically difficult. Contrast injection was performed. Exam performed portable in patient room. Left Ventricle Normal LV size. Moderately severe segmental systolic dysfunction (see wall motion). The estimated ejection fraction is 30 %. Infero-Basal: Hypokinetic. Mid-Anterior : Akinetic. Mid-Lateral : Hypokinetic. Mid-Inferior: Hypokinetic. Mid-inferoseptal : Akinetic. Mid-anteroseptal : Akinetic. Anterior [place] : Akinetic. Inferior [place] : Hypokinetic. Lateral [place] : Hypokinetic. Septal [place] : Hypokinetic. Right Ventricle Normal RV size. Normal systolic function. Atria The left atrium is mildly enlarged. Normal right atrium. No doppler evidence for ASD. Mitral Valve There is mild mitral annular calcification. Extension of the mitral annular calcification onto the base of the posterior mitral valve leaflet. Trivial mitral valve insufficiency. Tricuspid Valve Normal tricuspid valve. Trivial tricuspid valve insufficiency. Unable to estimate RV systolic pressure/pulmonary artery pressure due to technically difficult study. Aortic Valve Trisinus/trileaflet aortic valve. Mild focal aortic valve calcification. Pulmonic Valve The pulmonic valve is not well visualized. Great Vessels Normal sized aortic root. Pericardium/Pleural No pericardial effusion. Medication Diluted definity 3ml given slow IV push to enhance endocardial definition. MMode/2D Measurements & Calculations LVIDd: 4.3 cm IVSd: 1.3 cm Ao root diam: 2.6 cm LVIDs: 2.9 cm LVPWd: 1.2 cm RVDd: 3.7 cm FS: 31.2 % LAV(MOD-bp): 68.1 ml LA A4 area: 25.4 cm2 LA dimension(2D): 4.4 cm LAV(MOD-bp) Indexed: 33.0 ml/m2 LAV(MOD-sp2): 47.7 ml LAV(MOD-sp4): 83.5 ml RA A4 area: 14.5 cm2 Doppler Measurements & Calculations MV E max romel: 97.1 cm/sec Lat Peak E' Romel: 5.4 cm/sec Med Peak E' Romel: 5.8 cm/sec MV A max romel: 75.5 cm/sec E/E' lat: 17.9 E/E' med: 16.7 MV E/A: 1.3 Ao V2 max: 156.1 cm/sec LV V1 max: 108.7 cm/sec PA V2 max: 106.0 cm/sec Ao max P.8 mmHg LV V1 max P.7 mmHg Interpretation Summary The study was technically difficult. Contrast injection was performed. Moderately severe segmental systolic dysfunction (see wall motion). The estimated ejection fraction is 30 %. The left atrium is mildly enlarged. There is mild mitral annular calcification. Extension of the mitral annular calcification onto the base of the posterior mitral valve leaflet. Trivial mitral valve insufficiency. Trivial tricuspid valve insufficiency. Mild focal aortic valve calcification. Unable to estimate RV systolic pressure/pulmonary artery pressure due to technically difficult study. Transmitral diastolic flow velocities suggest diastolic dysfunction (pseudonormal pattern). Ordering Physician: Wagner Rivera Referring Physician: Milan Márquez Performed By: Ingris Iglesias ALDAIR
--- NOTE | 2019-09-29 09:05 | PCM.CONS.C ---
Problem List (1) NSTEMI (non-ST elevated myocardial infarction) Status: Acute (2) CHF (congestive heart failure) Status: Acute Qualifiers: Heart failure chronicity: unspecified (3) PVD (peripheral vascular disease) Status: Chronic (4) HLD (hyperlipidemia) Status: Chronic (5) Hypertension Status: Chronic (6) Diabetes Status: Chronic Qualifiers: Diabetes mellitus type: type 2 (7) COPD (chronic obstructive pulmonary disease) Status: Chronic (8) Anemia in chronic illness Status: Chronic Reason for Consult Date of Consultation: 09/29/19 History of Present Illness: The patient is a 69 year old white female who claims to have a past medical history of CAD and previous VA, now status post [facility] extensive peripheral vascular surgery intervention of the left lower extremity superimposed upon a previous extensive peripheral vascular surgery on the right lower extremity, hyperlipidemia, hypertension, diabetes mellitus, COPD, and anemia who presents for concerns of shortness of breath/dyspnea and subsequent findings compatible with a non-ST segment elevation VA and acute CHF-unspecified as to whether systolic or diastolic at this time. The patient states that she recently underwent her extensive peripheral vascular surgery at [facility]. She returned home. She still has left lower extremity wounds with zenaida. She states that yesterday she had a to acute onset of feeling short of breath and dyspneic. She does not remember any ongoing chest discomfort other than the sensation of an uncomfortable chest with her dyspnea. She subsequently presented to the emergency department where she was thought to have evidence of acute CHF based upon her history, exam, and radiologic findings. She had denied any fever or previous cough or previous shortness of breath. She did undergo COVID-19 testing which was reported as not detected. She was treated with IV diuretics and placed in the PCU for further evaluation and care. She states overall her breathing has improved with diuresis. She notes concerns of her left lower extremity with her wounds and zenaida. She has been noted to have abnormal troponin I levels which have trended up to 3.33 and an ECG that is demonstrated sinus rhythm with nonspecific ST and T wave changes. She states her breathing was her usual until yesterday. She had denied any ongoing palpitations. She states she has not had any ongoing lower extremity peripheral pitting edema except that in the left lower extremity which was recently intervened on with her peripheral vascular surgery. She denies any report of near syncope or syncope. She is does state overall she is breathing better. She is now on O2 nasal cannula. She states she has been taking her medications. She claims to have an allergy to aspirin. She has been on clopidogrel/Plavix and Xarelto. According to [facility] records available for review she did have approximately 1500 cc of blood loss during her peripheral vascular surgery intervention. She did require 2 units of PRBCs. She remains anemic at this time. [] Past Medical History Allergies/Adverse Reactions: Allergies aspirin [ASA] Adverse Reaction (Verified 09/28/19 18:53) Nausea also rash codeine Adverse Reaction (Verified 09/28/19 13:40) Nausea Home Medications: Ambulatory Orders Medication Instructions Recorded Allopurinol 200 mg PO DAILY 06/27/19 B Complex with Vitamin C 1 tab PO DAILY 06/27/19 [B-Complex Plus Vitamin C] Gabapentin [Neurontin] 300 - 600 mg PO QHS 06/27/19 Glipizide 10 mg PO BID 06/27/19 Pantoprazole Sodium [Protonix] 40 mg PO DAILY 06/27/19 Pravastatin [Pravachol] 80 mg PO QHS 06/27/19 Rivaroxaban [Xarelto] 2.5 mg PO BID 06/27/19 Sertraline HCl 100 mg PO DAILY 06/27/19 Tizanidine HCl 4 mg PO Q6H PRN PRN 06/27/19 Lisinopril [Zestril] 10 mg PO DAILY #30 tab 06/28/19 Acetaminophen 500 - 1,000 mg PO Q6H PRN PRN 09/28/19 Albuterol Aerosols [Ventolin 2.5 mg INHALATION TID 09/28/19 Aerosols] Albuterol IH (ProAir) [Proair Hfa 2 puff INHALATION Q4H PRN PRN 09/28/19 (SP)Vent Pts] Amlodipine [Norvasc] 10 mg PO DAILY 09/28/19 Clopidogrel Bisulfate [Clopidogrel] 75 mg PO DAILY 09/28/19 Oxycodone [Oxyir] 5 mg PO Q6H PRN PRN 09/28/19 Sulfacetamide Sodium [Sulf-10] 1 drp OPHTHALMIC (EYE) 4X/DAY 09/28/19 Past Medical History (Chronic Problems): Chronic Problems PVD (peripheral vascular disease) (Chronic) Obesity (Chronic) Depression (Chronic) Diabetes (Chronic) HLD (hyperlipidemia) (Chronic) GERD (gastroesophageal reflux disease) (Chronic) COPD (chronic obstructive pulmonary disease) (Chronic) History of hypertension (Chronic) Anemia in chronic illness (Chronic) Hypertension (Chronic) Decubitus ulcer of sacral region, stage 1 (Chronic) Surgical History: appendectomy, cholecystectomy, hysterectomy Psychiatric History: No pertinent psych hx L[employer] History: cervical cancer - *Family History Maternal History Items: Cancer - cervical Paternal History Items: Diabetes Lives: [facility] Smoking Status: Former smoker Tobacco Use: Cigars Alcohol: None Drugs: None Review of Systems - Review of Systems General: Denies: Fever, Night Sweats, Fatigue Cardiovascular: Reports: Chest Discomfort, Shortness of Breath, Shortness of Breath at Rest, Peripheral Edema. Denies: Orthopnea, PND, Palpitations, Lightheadedness, Dizziness, Near Syncope, Syncope Respiratory: Reports: Shortness of Breath. Denies: Cough, Sputum Production, Hemoptysis Gastrointestinal: Denies: Hematemesis, Hematochezia, Melena Genitourinary: Denies: Dysuria, Hematuria Skin: Denies: Rash Subjectve: Is a 69-year-old white female who appears to be resting reasonably comfortably at this time in no acute distress. Objective: Vital Signs Temp Pulse Resp BP Pulse Ox 98.4 F 90 19 H 134/47 H 94 09/29/19 05:14 09/29/19 07:00 09/29/19 05:14 09/29/19 05:14 09/29/19 07:42 Oxygen Flow Rate (L/min) 2 Oxygen Delivery Method Nasal Cannula Weight: 215 lb 6.266 oz Body Mass Index (BMI) 35.5 Intake and Output for Last 24 Hours 09/27/19 09/28/19 09/29/19 23:59 23:59 23:59 Intake Total 1057.5 / 1057.5 75 / 75 Output Total 1600 / 1600 550 / 550 Balance -542.5 / -542.5 -475 / -475 General: Awake, Alert, Oriented x 3, Cooperative, No Acute Distress, Obese HEENT: Atraumatic, Normocephalic, PERRL, EOMI, Sclera Non Icteric Oral: Moist Mucosa Neck: Supple, Good ROM, No JVD Lungs: Diminished Suman Bases Cardiovascular: Regular Rhythm, Normal S1, Normal S2 Abdomen: Bowel Sounds Present, Soft, Non Tender Extremities: - - Lower extremity in an Haider wrap Psych/Mental Status: Appropriate 09/28/19 14:07: Sodium 138, Potassium 3.9, Chloride 103, Carbon Dioxide 26.0, Anion Gap 9, BUN 25 H, Creatinine 1.54 H, Est GFR (MDRD) Af Amer 43 L, Est GFR (MDRD) Non-Af 35 L, BUN/Creatinine Ratio 16.2, Glucose 182 H, Calcium 8.3 L, Total Bilirubin 0.60, Troponin I 0.337 H 09/28/19 14:07: WBC 9.5, RBC 2.84 L, Hgb 8.4 L, Hct 28.4 L, MCV 100.0 H, MCH 29.6, MCHC 29.6 L, Plt Count 356, MPV 9.1, Immature Gran % (Auto) 0.700, Neut % (Auto) 84.0 H, Lymph % (Auto) 8.4 L, [place] % (Auto) 5.6, Eos % (Auto) 0.8, Baso % (Auto) 0.5, Absolute Neuts (auto) 8.0 H, Nucleated RBC % 0 09/28/19 14:07: PT 16.1 H, INR 1.3, APTT 25.2 09/28/19 14:07: Lactic Acid 1.8 09/28/19 14:07: B-Natriuretic Peptide 659.7 H 09/28/19 14:33: Urine Color Yellow, Urine Clarity Sl. Cloudy, Urine pH 5.0, Ur Specific [place] 1.025, Urine Protein 100 H, Urine Glucose (UA) Normal, Urine Ketones Negative, Urine Occult Blood 10 H, Urine Nitrite Positive H, Urine Bilirubin Negative, Urine Urobilinogen 4 H, Ur Leukocyte Esterase 25 H, Urine RBC 0-5 SEEN, Urine WBC 0-5 SEEN 09/28/19 14:42: pH 7.37, Bicarbonate Actual 23.5, POC Total CO2 25, Base Excess -2, O2 Saturation 98, ABG pCO2 40.4, ABG pO2 117 H, Johnny Test POS 09/28/19 18:40: APTT 28.2 09/28/19 18:40: Troponin I 2.220 H* 09/28/19 21:35: Troponin I 2.970 H* 09/29/19 00:42: WBC 8.2, RBC 2.88 L, Hgb 8.8 L, Hct 28.0 L, MCV 97.2, MCH 30.6, MCHC 31.4 L D, Plt Count 278, MPV 9.8, Immature Gran % (Auto) 0.400, Neut % (Auto) 91.1 H, Lymph % (Auto) 4.6 L, [place] % (Auto) 3.6, Eos % (Auto) 0.1, Baso % (Auto) 0.2, Absolute Neuts (auto) 7.5, Nucleated RBC % 0.2 09/29/19 00:42: Sodium 139, Potassium 4.4, Chloride 105, Carbon Dioxide 24.0, Anion Gap 10, BUN 25 H, Creatinine 1.38 H, Est GFR (MDRD) Af Amer 49 L, Est GFR (MDRD) Non-Af 40 L, BUN/Creatinine Ratio 18.1, Glucose 163 H, Calcium 8.3 L, Total Bilirubin 0.60 09/29/19 00:42: Troponin I 3.330 H* Rhythm: Sinus rhythm EKG: As noted above Echocardiogram: 06-27-2019 Interpretation Summary The estimated ejection fraction is 70 %. There is evidence of diastolic dysfunction. The left atrium is mildly enlarged. The study was technically difficult. Contrast injection was performed. Chest x-ray: Preliminary findings: Increased pulmonary vascularity: Please see official report Assessment/Plan 1. Non-ST segment elevation VA The patient presents with findings compatible with an acute non-ST segment elevation VA. This is superimposed upon her report of a history of CAD and previous VA. She does not recall undergoing any additional noninvasive or invasive studies in the past. At the present time she is being monitored. She will continue medical management. This will include a combination of her antiplatelet/anticoagulant agents as well as other agents such as nitrates, beta-blockers, HAIDER inhibitor's, lipid-lowering agents, etc. She can have reevaluation of her left ventricular wall motion systolic function with a follow-up echocardiogram. However it was felt the patient should undergo further evaluation with diagnostic cardiac catheterization. As the patient appears to have extensive peripheral vascular disease and has undergone recent extensive peripheral vascular surgery it was felt the patient should be further assessed at a tertiary care center such as [facility] where she recently had her peripheral vascular surgical intervention performed. 2. CHF The patient is presented with findings compatible with acute CHF. Is unclear at this time whether this is systolic or diastolic mediated. She is continuing medical therapy. She will be further assessed with an echocardiogram which may help with whether or not she has developed systolic dysfunction compared to her previous transthoracic echocardiogram. Again based upon her other objective findings with respect to concerns of an underlying acute coronary syndrome she was recommended for further evaluation with diagnostic cardiac catheterization as well. 3. Peripheral vascular disease The patient has had right lower extremity peripheral vascular surgery approximately 1 year ago and is now status post recent extensive left lower extremity peripheral vascular surgery with zenaida still in place. Her extensive peripheral vascular surgery does raise concern about the possibility of underlying CAD. Based upon her extensive peripheral vascular arterial disease and surgical intervention and the potential complexity of performing a diagnostic cardiac catheterization was felt that it was in the patient's best interest that she be reassessed at a tertiary care center such as [facility] where she was recently at for further cardiovascular evaluation and care. 4. Hyperlipidemia She will continue medical management. 5. Hypertension Her blood pressure will be followed. Her medications can be adjusted as needed. 6. Diabetes mellitus She will continue evaluation care per internal medicine. 7. COPD She has a history of COPD. She will continue evaluation per internal medicine. 8. Anemia She is anemic. According to her [facility] records available for review she did require 2 units of PRBCs following her peripheral vascular surgical procedure. Her H&H will need to be followed. Depending upon her cardiovascular course she may require additional PRBCs. Comment: The above was discussed with the patient. The above information was also transmitted to Dr. Gonzalez the [facility] hospitalist staff. He was agreeable to initiating the patient's transfer arrangements to [facility]. This note was generated using a voice recognition system and there may be incorrect words, spelling or punctuation that were not noted when reviewing the office note prior to saving. Procedure Criteria Procedure Type: Essential Procedure Essential: Yes Criteria Statement: On 07/20/2019 the [place] Department of Health ([facility]) Public Order signed by [facility] Director Sophie You M.D., regarding the Management of Non-Essential Surgeries and Procedures for the purpose of preserving Personal Protective Equipment (PPE) and critical hospital capacity and resources within [place] went into effect as of 07/21/2019 at 5:00PM. According to the [facility] Public Order: This action will remain in full force and effect until the State of Emergency declared by the Governor no longer exists or the Director of the [facility] rescinds or modifies this Order. This [facility] order stated all non-essential or elective surgeries and procedures that utilize PPE should be delayed unless there is undue risk to the current or future health of a patient. After reviewing the aforementioned [facility] Public Order and the patient's clinical case, I have determined that the scheduled procedure meets the criteria to go forward. Risk to Patient if Procedure Delayed: Threat of permanent dysfunction of an extremity or organ if delayed - NSTEMI
[2019-09-29] MEDS: Furosemide 40 MG/4 ML Vial IV (09:30)
[2019-09-29] MEDS: Pantoprazole Sodium 40 MG Tablet PO (09:30)
[2019-09-29] MEDS: Sertraline 100 MG Tablet PO (09:30)
[2019-09-29] MEDS: Allopurinol 100 MG Tablet 200 MG PO (09:30)
[2019-09-29] MEDS: Lisinopril 10 MG Tablet PO (09:30)
[2019-09-29] MEDS: Rivaroxaban 2.5 MG Tablet PO (09:30)
[2019-09-29] MEDS: Clopidogrel Bisulfate 75 MG Tablet PO (09:30)
[2019-09-29] MEDS: Metoprolol Tartrate 25 MG Tablet PO (09:31)
--- NOTE | 2019-09-29 09:42 | NURSING ---
wound photo: left lower leg
--- NOTE | 2019-09-29 09:43 | NURSING ---
wound photo: lana cleft
--- NOTE | 2019-09-29 10:11 | CASEMGMT ---
According to the [facility] website, the following are in-network tertiary facilities: [facility], [place], [facility], [place], [facility], [facility], [place], [facility], and . Ladonna ABREU CM
[2019-09-29] MEDS: Albuterol 2.5 MG/3 ML VIAL.NEB. INHALATION (11:07)
[2019-09-29 11:20] LABS: Bedside Glucose 250 mg/dL (70-110)
--- NOTE | 2019-09-29 11:53 | DS.PCM_ITS ---
<Trinh Thayer - Last Filed: 09/29/19 12:15> Discharge Date and Diagnosis Date of Admission: 09/28/19 Date of Discharge: 09/29/19 - Primary Discharge Diagnosis Acute Problems: Active Problems 1. Acute hypoxic respiratory failure secondary to CHF and possible COPD exacerbation 2. Acute heart failure with preserved ejection fraction 3. NSTEMI 4. Possible COPD exacerbation 5. Acute kidney injury on chronic kidney disease stage III 6. Gram-negative chapo UTI 7. CAD 8. Extensive peripheral vascular disease with recent left lower extremity bypass at [facility] approximately 3 weeks ago and ongoing lower extremity wounds 9. Acute on chronic normocytic anemia 10. Hypertension 11. Hyperlipidemia 12. Type 2 diabetes mellitus 13. Obesity - Secondary Discharge Diagnosis Chronic Problems: Chronic Problems PVD (peripheral vascular disease) (Chronic) Obesity (Chronic) Depression (Chronic) Diabetes (Chronic) HLD (hyperlipidemia) (Chronic) GERD (gastroesophageal reflux disease) (Chronic) COPD (chronic obstructive pulmonary disease) (Chronic) History of hypertension (Chronic) Anemia in chronic illness (Chronic) Hypertension (Chronic) Decubitus ulcer of sacral region, stage 1 (Chronic) Hospital Course and Treatment Imaging Results: 09/29/19 09:04 Echo Complete [ECHO] Routine Consultations 09/28/19 18:21 Consult: Onc/Wound/check out clerk Routine Comment: Reason for Consult:: LLE wound Operations: None Procedures: 2-D Echocardiogram Summary of Care Provided: The patient is a 69 year old F admitted 09/28/2019 due to shortness of breath. 1. Acute hypoxic respiratory failure secondary to CHF and possible COPD exacerbation-continue supplement oxygen to maintain O2 at above 90%. 2. Acute heart failure with preserved ejection fraction-BNP 659. Chest x-ray consistent with CHF. Cardiology consult placed. IV Lasix. Strict I&O. Daily weight. Repeat echocardiogram pending. 3. NSTEMI-cardiology recommending diagnostic cardiac catheterization however given patient's underlying extensive peripheral vascular disease with recent surgical intervention, patient was recommended to transfer to tertiary facility where she had a prior lower extremity bypass for further cardiac evaluation. 4. Possible COPD exacerbation-IV Solu-Medrol. Albuterol and DuoNeb aerosols. COVID-19 test negative. 5. Acute kidney injury on chronic kidney disease stage III-improving. 6. Gram-negative chapo UTI-urine culture grew gram-negative chapo greater than 100,000 colony count. Prior cultures grew E. coli. IV Rocephin. 7. CAD-continue Plavix, lisinopril, metoprolol. 8. Extensive peripheral vascular disease with recent left lower extremity bypass at [facility] approximately 3 weeks ago and ongoing lower extremity wounds 9. Acute on chronic normocytic anemia-trend CBC. 10. Hypertension-stable, continue current regimen. 11. Hyperlipidemia 12. Type 2 diabetes [id number] with sliding scale insulin. 13. Obesity-encouraged diet and lifestyle modifications. Patient seen and examined prior to discharge. Physical assessment as noted below. Patient is stable for discharge with follow up recommendations as noted above. This patient was seen by LOVE Denis under the supervision of Dr. Gonzalez. - Physical Exam Vitals/I&O's: Vital Signs Temp Pulse Resp BP Pulse Ox 97.6 F L 72 22 H 151/47 H 95 09/29/19 09:30 09/29/19 11:42 09/29/19 11:42 09/29/19 09:30 09/29/19 09:30 Oxygen Flow Rate (L/min) 2 Oxygen Delivery Method Nasal Cannula Weight: 215 lb 6.266 oz Body Mass Index (BMI) 35.5 Intake and Output for Last 24 Hours 09/27/19 09/28/19 09/29/19 23:59 23:59 23:59 Intake Total 1057.5 / 1057.5 435 / 435 Output Total 1600 / 1600 1200 / 1200 Balance -542.5 / -542.5 -765 / -765 General: Alert, Oriented x3, Cooperative HEENT: Atraumatic, PERRLA, EOMI, Normocephalic Neck: Supple, No JVD, Negative Carotid Bruits Lungs: Clear to auscultation, Diminished Cardiovascular: Regular rate, No murmurs Abdomen: Bowel Sounds Present, Soft, Non Tender, Non-Distended, Obese Extremities: No clubbing, No cyanosis, No edema Skin: No rashes, No breakdown, - - Left lower extremity bypass wounds. Dressing/Haider wraps in place. Musculoskeletal: No Tenderness to Palpation of Joints or Extremities Neurological: Cranial nerves II-XII grossly intact Psych/Mental Status: Normal Affect, Appropriate Microbiology Past 72 Hours 09/28/19 14:33 Urine, Clean Catch Urine Culture - Preliminary GNR lactose pharmacology professor 09/28/19 14:15 Mucosa - Nasopharyngeal Coronavirus COVID-19 PCR - Final Laboratory Results 09/28/19 14:07: Sodium 138, Potassium 3.9, Chloride 103, Carbon Dioxide 26.0, Anion Gap 9, BUN 25 H, Creatinine 1.54 H, Estim Creat Clear Calc 31.82, Est GFR (MDRD) Af Amer 43 L, Est GFR (MDRD) Non-Af 35 L, BUN/Creatinine Ratio 16.2, Glucose 182 H, Calcium 8.3 L, Total Bilirubin 0.60, AST 21, ALT 18, Alkaline Phosphatase 89, Troponin I 0.337 H, Total Protein 6.7, Albumin 2.5 L, Globulin 4.2, Albumin/Globulin Ratio 0.6 L 09/28/19 14:07: WBC 9.5, RBC 2.84 L, Hgb 8.4 L, Hct 28.4 L, MCV 100.0 H, MCH 29.6, MCHC 29.6 L, RDW Std Deviation 63.5 H, RDW Coeff of Geovanna 17.7 H, Plt Count 356, MPV 9.1, Immature Gran % (Auto) 0.700, Neut % (Auto) 84.0 H, Lymph % (Auto) 8.4 L, [place] % (Auto) 5.6, Eos % (Auto) 0.8, Baso % (Auto) 0.5, Absolute Neuts (auto) 8.0 H, Absolute Lymphs (auto) 0.80 L, Nucleated RBC % 0 09/28/19 14:07: PT 16.1 H, INR 1.3, APTT 25.2 09/28/19 14:07: Lactic Acid 1.8 09/28/19 14:07: B-Natriuretic Peptide 659.7 H 09/28/19 14:33: Urine Color Yellow, Urine Clarity Sl. Cloudy, Urine pH 5.0, Ur Specific [place] 1.025, Urine Protein 100 H, Urine Glucose (UA) Normal, Urine Ketones Negative, Urine Occult Blood 10 H, Urine Nitrite Positive H, Urine Bilirubin Negative, Urine Urobilinogen 4 H, Ur Leukocyte Esterase 25 H, Urine RBC 0-5 SEEN, Urine WBC 0-5 SEEN, Ur Squamous Epith Cells 0-5 SEEN, Urine Bact eria 2+, Urine Mucus 0 SEEN 09/28/19 14:42: Specimen Type ART, Sample Site R RADIAL, pH 7.37, Bicarbonate Actual 23.5, POC Total CO2 25, Base Excess -2, O2 Saturation 98, O2 % 40, ABG pCO2 40.4, ABG pO2 117 H, Johnny Test POS, O2 Delivery Device Bi Pap, EPAP 6, IPAP 12, Blood Gas Notified Whom ED MD, Blood Gas Notified Time 1335 09/28/19 18:40: APTT 28.2 09/28/19 18:40: Troponin I 2.220 H* 09/28/19 21:35: Troponin I 2.970 H* 09/28/19 22:26: POC Glucose 153 H 09/29/19 00:42: WBC 8.2, RBC 2.88 L, Hgb 8.8 L, Hct 28.0 L, MCV 97.2, MCH 30.6, MCHC 31.4 L D, RDW Std Deviation 61.5 H, RDW Coeff of Geovanna 17.3 H, Plt Count 278, MPV 9.8, Immature Gran % (Auto) 0.400, Neut % (Auto) 91.1 H, Lymph % (Auto) 4.6 L, [place] % (Auto) 3.6, Eos % (Auto) 0.1, Baso % (Auto) 0.2, Absolute Neuts (auto) 7.5, Absolute Lymphs (auto) 0.38 L, Nucleated RBC % 0.2, Differential Comment COMMENT, Platelet Estimate ADEQUATE, Polychromasia 1+, Hypochromasia 1+ 09/29/19 00:42: Sodium 139, Potassium 4.4, Chloride 105, Carbon Dioxide 24.0, Anion Gap 10, BUN 25 H, Creatinine 1.38 H, Estim Creat Clear Calc 35.51, Est GFR (MDRD) Af Amer 49 L, Est GFR (MDRD) Non-Af 40 L, BUN/Creatinine Ratio 18.1, Glucose 163 H, Calcium 8.3 L, Total Bilirubin 0.60, AST 31, ALT 19, Alkaline Phosphatase 87, Total Protein 6.8, Albumin 2.5 L, Globulin 4.3 H, Albumin/Globulin Ratio 0.6 L 09/29/19 00:42: Troponin I 3.330 H* 05/27/20 06:31: POC Glucose 216 H 09/29/19 11:12: POC Glucose 250 H Current Medications Acetaminophen (Tylenol) 1,000 mg PO Q6H PRN PRN PRN Reason: PAIN 1-10 OR FEVER Albuterol Sulfate (Ventolin Aerosols) 2.5 mg INHALATION Q4H PRN PRN PRN Reason: SOB &/OR WHEEZING Albuterol Sulfate (Ventolin Aerosols) 2.5 mg INHALATION .TIDRT [facility] Last Admin: 09/29/19 11:07 Dose: 2.5 mg Documented by: Allopurinol (Zyloprim) 200 mg PO DAILY [facility] Last Admin: 09/29/19 09:30 Dose: 200 mg Documented by: Clopidogrel Bisulfate (Plavix) 75 mg PO DAILY [facility] Last Admin: 09/29/19 09:30 Dose: 75 mg Documented by: Dextrose (D50w Syringe) 0 gm IV X1 PRN; Protocol PRN Reason: Hypoglycemia Furosemide (Lasix) 40 mg IV BID@1000,1800 [facility] Last Admin: 09/29/19 09:30 Dose: 40 mg Documented by: Gabapentin (Neurontin) 300 mg PO QHS [facility] Last Admin: 09/28/19 22:44 Dose: 300 mg Documented by: Glucagon () 1 mg IM .X1 PRN PRN Reason: Hypoglycemia Sodium Chloride () 250 mls @ 15 mls/hr IV .[id number] PRN PRN Reason: Saline Flush Sodium Chloride () 250 mls @ 15 mls/hr IV .[id number] PRN PRN Reason: Additional IVPB Infusion Insulin Human Lispro (Humalog Kwikpen (Bkc)) 0 unit SC TIDAC [facility]; Protocol Last Admin: 09/29/19 11:13 Dose: 3 u Documented by: Lisinopril (Zestril) 10 mg PO DAILY [facility] Last Admin: 09/29/19 09:30 Dose: 10 mg Documented by: Methylprednisolone (Solu-Medrol) 40 mg IV Q8 [facility] Last Admin: 09/29/19 05:16 Dose: 40 mg Documented by: Metoprolol Tartrate (Lopressor (Beta Mariela)) 25 mg PO BID [facility] Last Admin: 09/29/19 09:31 Dose: 25 mg Documented by: Nitroglycerin (Nitrobid) 1 inch TRANSDERM. Q8 [facility] Ondansetron HCl (Zofran) 4 mg IV Q8H PRN PRN PRN Reason: NAUSEA/VOMITING Oxycodone HCl (Oxyir) 5 mg PO Q6H PRN PRN PRN Reason: Pain Score 4-10/10 Last Admin: 09/29/19 09:31 Dose: 5 mg Documented by: Pantoprazole Sodium (Protonix) 40 mg PO DAILY [facility] Last Admin: 09/29/19 09:30 Dose: 40 mg Documented by: Pravastatin Sodium (Pravachol) 80 mg PO QHS [facility] Last Admin: 09/28/19 22:34 Dose: 80 mg Documented by: Rivaroxaban (Xarelto) 2.5 mg PO BID [facility] Last Admin: 09/29/19 09:30 Dose: 2.5 mg Documented by: Sertraline HCl (Zoloft) 100 mg PO DAILY [facility] Last Admin: 09/29/19 09:30 Dose: 100 mg Documented by: Sodium Chloride () 10 - 40 ml IV UD PRN PRN Reason: SALINE FLUSH Last Admin: 09/29/19 09:30 Dose: 10 ml Documented by: Sulfacetamide Sodium (Sulf-10) 1 drop EACH EYE 4X/DAY [facility] Last Admin: 09/29/19 09:32 Dose: Not Given Documented by: Tizanidine HCl (Zanaflex) 4 mg PO Q6H PRN PRN PRN Reason: SPASMS Home Medications: Medications to take at Discharge Allopurinol 200 mg PO DAILY 06/27/19 B Complex with Vitamin C [B-Complex Plus Vitamin C] 1 tab PO DAILY 06/27/19 Gabapentin [Neurontin] 300 - 600 mg PO QHS 06/27/19 Glipizide 10 mg PO BID 06/27/19 Pantoprazole Sodium [Protonix] 40 mg PO DAILY 06/27/19 Pravastatin [Pravachol] 80 mg PO QHS 06/27/19 Rivaroxaban [Xarelto] 2.5 mg PO BID 06/27/19 Sertraline HCl 100 mg PO DAILY 06/27/19 Tizanidine HCl 4 mg PO Q6H PRN PRN 06/27/19 Lisinopril [Zestril] 10 mg PO DAILY #30 tab 06/28/19 Acetaminophen 500 - 1,000 mg PO Q6H PRN PRN 09/28/19 Albuterol Aerosols [Ventolin Aerosols] 2.5 mg INHALATION TID 09/28/19 Albuterol IH (ProAir) [Proair Hfa (SP)Vent Pts] 2 puff INHALATION Q4H PRN PRN 09/28/19 Amlodipine [Norvasc] 10 mg PO DAILY 09/28/19 Clopidogrel Bisulfate [Clopidogrel] 75 mg PO DAILY 09/28/19 Oxycodone [Oxyir] 5 mg PO Q6H PRN PRN 09/28/19 Sulfacetamide Sodium [Sulf-10] 1 drp OPHTHALMIC (EYE) 4X/DAY 09/28/19 Primary Care Physician: Milan Márquez MD [Primary Care Provider] - Disposition: Acute care Hospital Minutes spent on discharge:: 35 Patient Condition:: Fair Medical Necessity - Tobacco Use Smoking Status: Former smoker Tobacco Use: Cigars Meaningful Use Info Meaningful Use Diagnoses (Choose all that apply): AMI, CHF - AMI/Post PCI/Angioplasty Aspirin given w/in 24hrs of arrival?: Yes ASA at discharge?: Yes Statins at discharge?: Yes Haider/ARB at discharge?: Yes Beta Mariela at discharge?: Yes Done w/ Acute OR measure.: Yes Documented LVEF (%): 70 - CHF HAIDER/ARB ordered at discharge?: Yes Documented LVEF (%): 70 <Ricky Gonzalez - Last Filed: 09/29/19 14:44> Discharge Date and Diagnosis - Secondary Discharge Diagnosis Chronic Problems: Chronic Problems PVD (peripheral vascular disease) (Chronic) Obesity (Chronic) Depression (Chronic) Diabetes (Chronic) HLD (hyperlipidemia) (Chronic) GERD (gastroesophageal reflux disease) (Chronic) COPD (chronic obstructive pulmonary disease) (Chronic) History of hypertension (Chronic) Anemia in chronic illness (Chronic) Hypertension (Chronic) Decubitus ulcer of sacral region, stage 1 (Chronic) Hospital Course and Treatment Imaging Results: 09/29/19 09:04 Echo Complete [ECHO] Routine Consultations 09/28/19 18:21 Consult: Onc/Wound/check out clerk Routine Comment: Reason for Consult:: LLE wound Operations: None Procedures: 2-D Echocardiogram Summary of Care Provided: Patient seen and examined independently. Data reviewed. I agree with the above note by the nurse practitioner. The patient is a 69 year old F presents with shortness of breath and found to have CHF exacerbation. Subsequent found to have non-ST myocardial infarction with troponins peaked at 3.3. Cardiology was consulted and given her recent vascular intervention and potential for ischemic complexity, recommended transferring to a tertiary facility. Discussed with the patient patient prefers to go to [facility], where she had her recent vascular bypass performed several weeks ago. Spoke with 2 physicians, patient was accepted by Dr. Ortega. Patient will be apparently going to their cardiology ICU. Patient has remained stable here. 1. Acute hypoxic respiratory failure: No documented hypoxia but patient did require BiPAP. Suspicion is that this is due to heart failure with possible exacerbation of COPD. Patient currently on BiPAP and wean as tolerated. I think patient would tolerate weaning down. Treat the underlying processes. Patient being checked for COVID though patient's risk profile for it is low in addition she does not have any leukocytosis. Patient to be transferred to [facility] in stable condition. 2. Acute heart failure with preserved ejection fraction: EF of 70% from echocardiogram from June 28. Patient will be on furosemide 40 mg twice daily, continue with lisinopril. Fluid restrictions. Daily weights. Cardiology consultation, discussed with Dr. Rivera. 3. Elevated troponins: Unclear if this is a non-STEMI or demand ischemia. We will cycle troponins. Patient will be anticoagulated with heparin for now. 4. Possible acute exacerbation of COPD: Continue with her home bronchodilators. Methylprednisolone for now. 5. Acute kidney injury: Creatinine 1.54 and was 1.08 back in June. Granted this could be gradual worsening of her kidney function but will monitor closely particular the patient being on diuretics. 6. VTE prophylaxis: Low risk as patient will be anticoagulated 7. Peripheral arterial disease: Patient had recent bypass at [facility] roughly 3 weeks ago. Still has zenaida in place. We will request records from [facility]. Continue with clopidogrel. 8. Left lower extremity wound: Looks clean not infected. Consult wound care and again request records from [facility] in regards to their eventual plan for this wound. 9. Advanced care planning: Discussed with the patient. Patient wishes to be full CODE STATUS at this time.[] - Physical Exam Vitals/I&O's: Vital Signs Temp Pulse Resp BP Pulse Ox 36.4 C L 67 20 H 133/74 H 94 09/29/19 13:40 09/29/19 13:40 09/29/19 13:40 09/29/19 13:40 09/29/19 13:40 Oxygen Flow Rate (L/min) 3 Oxygen Delivery Method Nasal Cannula Weight: 97.7 kg Body Mass Index (BMI) 35.5 Intake and Output for Last 24 Hours 09/27/19 09/28/19 09/29/19 23:59 23:59 23:59 Intake Total 1057.5 / 1057.5 435.25 / 435.25 Output Total 1600 / 1600 1200 / 1200 Balance -542.5 / -542.5 -764.75 / -764.75 General: Alert, Cooperative HEENT: Atraumatic, Normocephalic Lungs: Clear to auscultation, Normal air movement, No rhonchi, No wheeze Psych/Mental Status: Appropriate, Anxious Microbiology Past 72 Hours 09/28/19 14:33 Urine, Clean Catch Urine Culture - Preliminary GNR lactose pharmacology professor 09/28/19 14:15 Mucosa - Nasopharyngeal Coronavirus COVID-19 PCR - Final Laboratory Results 09/28/19 14:07: Sodium 138, Potassium 3.9, Chloride 103, Carbon Dioxide 26.0, An ion Gap 9, BUN 25 H, Creatinine 1.54 H, Estim Creat Clear Calc 31.82, Est GFR (MDRD) Af Amer 43 L, Est GFR (MDRD) Non-Af 35 L, BUN/Creatinine Ratio 16.2, Glucose 182 H, Calcium 8.3 L, Total Bilirubin 0.60, AST 21, ALT 18, Alkaline Phosphatase 89, Troponin I 0.337 H, Total Protein 6.7, Albumin 2.5 L, Globulin 4.2, Albumin/Globulin Ratio 0.6 L 09/28/19 14:07: PT 16.1 H, INR 1.3, APTT 25.2 09/28/19 14:07: Lactic Acid 1.8 09/28/19 14:07: B-Natriuretic Peptide 659.7 H 09/28/19 14:33: Urine Color Yellow, Urine Clarity Sl. Cloudy, Urine pH 5.0, Ur Specific [place] 1.025, Urine Protein 100 H, Urine Glucose (UA) Normal, Urine Ketones Negative, Urine Occult Blood 10 H, Urine Nitrite Positive H, Urine Bilirubin Negative, Urine Urobilinogen 4 H, Ur Leukocyte Esterase 25 H, Urine RBC 0-5 SEEN, Urine WBC 0-5 SEEN, Ur Squamous Epith Cells 0-5 SEEN, Urine Bacteria 2+, Urine Mucus 0 SEEN 09/28/19 14:42: Specimen Type ART, Sample Site R RADIAL, pH 7.37, Bicarbonate Actual 23.5, POC Total CO2 25, Base Excess -2, O2 Saturation 98, O2 % 40, ABG pCO2 40.4, ABG pO2 117 H, Johnny Test POS, O2 Delivery Device Bi Pap, EPAP 6, IPAP 12, Blood Gas Notified Whom ED MD, Blood Gas Notified Time 1335 09/28/19 18:40: APTT 28.2 09/28/19 18:40: Troponin I 2.220 H* 09/28/19 21:35: Troponin I 2.970 H* 09/28/19 22:26: POC Glucose 153 H 09/29/19 00:42: WBC 8.2, RBC 2.88 L, Hgb 8.8 L, Hct 28.0 L, MCV 97.2, MCH 30.6, MCHC 31.4 L D, RDW Std Deviation 61.5 H, RDW Coeff of Geovanna 17.3 H, Plt Count 278, MPV 9.8, Immature Gran % (Auto) 0.400, Neut % (Auto) 91.1 H, Lymph % (Auto) 4.6 L, [place] % (Auto) 3.6, Eos % (Auto) 0.1, Baso % (Auto) 0.2, Absolute Neuts (auto) 7.5, Absolute Lymphs (auto) 0.38 L, Nucleated RBC % 0.2, Differential Comment COMMENT, Platelet Estimate ADEQUATE, Polychromasia 1+, Hypochromasia 1+ 09/29/19 00:42: Sodium 139, Potassium 4.4, Chloride 105, Carbon Dioxide 24.0, Anion Gap 10, BUN 25 H, Creatinine 1.38 H, Estim Creat Clear Calc 35.51, Est GFR (MDRD) Af Amer 49 L, Est GFR (MDRD) Non-Af 40 L, BUN/Creatinine Ratio 18.1, Glucose 163 H, Calcium 8.3 L, Total Bilirubin 0.60, AST 31, ALT 19, Alkaline Phosphatase 87, Total Protein 6.8, Albumin 2.5 L, Globulin 4.3 H, Albumin/Globulin Ratio 0.6 L 09/29/19 00:42: Troponin I 3.330 H* 09/29/19 06:31: POC Glucose 216 H 09/29/19 11:12: POC Glucose 250 H 09/29/19 12:25: Troponin I 2.120 H* Current Medications Acetaminophen (Tylenol) 1,000 mg PO Q6H PRN PRN PRN Reason: PAIN 1-10/10 OR FEVER Last Admin: 09/29/19 13:41 Dose: 1,000 mg Documented by: Albuterol Sulfate (Ventolin Aerosols) 2.5 mg INHALATION Q4H PRN PRN PRN Reason: SOB &/OR WHEEZING Albuterol Sulfate (Ventolin Aerosols) 2.5 mg INHALATION .TIDRT [facility] Last Admin: 09/29/19 11:07 Dose: 2.5 mg Documented by: Allopurinol (Zyloprim) 200 mg PO DAILY [facility] Last Admin: 09/29/19 09:30 Dose: 200 mg Documented by: Clopidogrel Bisulfate (Plavix) 75 mg PO DAILY [facility] Last Admin: 09/29/19 09:30 Dose: 75 mg Documented by: Dextrose (D50w Syringe) 0 gm IV X1 PRN; Protocol PRN Reason: Hypoglycemia Furosemide (Lasix) 40 mg IV BID@1000,1800 [facility] Last Admin: 09/29/19 09:30 Dose: 40 mg Documented by: Gabapentin (Neurontin) 300 mg PO QHS [facility] Last Admin: 09/28/19 22:44 Dose: 300 mg Documented by: Glucagon () 1 mg IM .X1 PRN PRN Reason: Hypoglycemia Sodium Chloride () 250 mls @ 15 mls/hr IV .[id number] PRN PRN Reason: Saline Flush Last Infusion: 09/29/19 13:41 Dose: 0 mls/hr Documented by: Sodium Chloride () 250 mls @ 15 mls/hr IV .[id number] PRN PRN Reason: Additional IVPB Infusion Ceftriaxone Sodium 2 gm/ (Sodium Chloride) 50 mls @ 100 mls/hr IV Q24 [facility] Last Admin: 09/29/19 13:40 Dose: 100 mls/hr Documented by: Insulin Human Lispro (Humalog Kwikpen (Bkc)) 0 unit SC TIDAC [facility]; Protocol Last Admin: 09/29/19 11:13 Dose: 3 u Documented by: Lisinopril (Zestril) 10 mg PO DAILY [facility] Last Admin: 09/29/19 09:30 Dose: 10 mg Documented by: Methylprednisolone (Solu-Medrol) 40 mg IV Q8 [facility] Last Admin: 09/29/19 13:40 Dose: 40 mg Documented by: Metoprolol Tartrate (Lopressor (Beta Mariela)) 25 mg PO BID [facility] Last Admin: 09/29/19 09:31 Dose: 25 mg Documented by: Nitroglycerin (Nitrobid) 1 inch TRANSDERM. Q8 [facility] Last Admin: 09/29/19 13:41 Dose: 1 inch Documented by: Ondansetron HCl (Zofran) 4 mg IV Q8H PRN PRN PRN Reason: NAUSEA/VOMITING Oxycodone HCl (Oxyir) 5 mg PO Q6H PRN PRN PRN Reason: Pain Score 4-10/10 Last Admin: 09/29/19 09:31 Dose: 5 mg Documented by: Pantoprazole Sodium (Protonix) 40 mg PO DAILY [facility] Last Admin: 09/29/19 09:30 Dose: 40 mg Documented by: Pravastatin Sodium (Pravachol) 80 mg PO QHS [facility] Last Admin: 09/28/19 22:34 Dose: 80 mg Documented by: Rivaroxaban (Xarelto) 2.5 mg PO BID [facility] Last Admin: 09/29/19 09:30 Dose: 2.5 mg Documented by: Sertraline HCl (Zoloft) 100 mg PO DAILY [facility] Last Admin: 09/29/19 09:30 Dose: 100 mg Documented by: Sodium Chloride () 10 - 40 ml IV UD PRN PRN Reason: SALINE FLUSH Last Admin: 09/29/19 13:40 Dose: 10 ml Documented by: Sulfacetamide Sodium (Sulf-10) 1 drop EACH EYE 4X/DAY [facility] Last Admin: 09/29/19 13:42 Dose: Not Given Documented by: Tizanidine HCl (Zanaflex) 4 mg PO Q6H PRN PRN PRN Reason: SPASMS Discharge Diet: Low fat/ Low Cholesterol Disposition: Acute care Hospital Minutes spent on discharge:: 60 Patient Condition:: Fair Medical Necessity - Tobacco Use Smoking Status: Former smoker Tobacco Use: Cigars Inpatient E&M: 25005 Disch Hosp
--- NOTE | 2019-09-29 12:18 | NURSING ---
Called repot to Brooke ABREU at [facility]
[2019-09-29] MEDS: Nitroglycerin Oint 1 INCH PACKET TRANSDERM. (13:41)
[2019-09-29] MEDS: Acetaminophen 500 MG Tablet 1000 MG PO (13:41)
== END 2019-09-29 15:13 | disposition short-term general hospital (02) | DRG 280 ==
LOC: ED 15:29 → ICU 17:50 → PCU 21:47
PROVIDERS: Internal Medicine Cardiovascular Disease; Emergency Provider Emergency Medicine; PCP Family Medicine
DX: I13.0 Hypertensive heart and chronic kidney disease with heart failure and stage 1 through stage 4 chronic kidney disease, or unspecified chronic kidney disease (principal); I50.31 Acute diastolic (congestive) heart failure; I21.4 Non-ST elevation (NSTEMI) myocardial infarction; J96.01 Acute respiratory failure with hypoxia; N17.9 Acute kidney failure, unspecified; J44.1 Chronic obstructive pulmonary disease with (acute) exacerbation; N39.0 Urinary tract infection, site not specified; E11.51 Type 2 diabetes mellitus with diabetic peripheral angiopathy without gangrene; F32.9 Major depressive disorder, single episode, unspecified; E78.5 Hyperlipidemia, unspecified; K21.9 Gastro-esophageal reflux disease without esophagitis; J44.9 Chronic obstructive pulmonary disease, unspecified; N18.3 Chronic kidney disease, stage 3 (moderate); I25.10 Atherosclerotic heart disease of native coronary artery without angina pectoris; D63.8 Anemia in other chronic diseases classified elsewhere; E66.9 Obesity, unspecified; B96.89 Other specified bacterial agents as the cause of diseases classified elsewhere; Z68.36 Body mass index [BMI] 36.0-36.9, adult; L89.151 Pressure ulcer of sacral region, stage 1; F17.290 Nicotine dependence, other tobacco product, uncomplicated; Z79.01 Long term (current) use of anticoagulants; Z79.02 Long term (current) use of antithrombotics/antiplatelets; Z83.3 Family history of diabetes mellitus; Z85.41 Personal history of malignant neoplasm of cervix uteri; Z90.710 Acquired absence of both cervix and uterus; E11.22 Type 2 diabetes mellitus with diabetic chronic kidney disease; I25.2 Old myocardial infarction; S81.802A Unspecified open wound, left lower leg, initial encounter
CPT/HCPCS: 36415; 36600; 51702; 71045; 80053; 81001; 82803; 82962; 83605; 83880; 84484; 85025; 85610; 85730; 87040; 87077; 87086; 87088; 87186; 87635; 93005; 93306; 94002; 94640; 96361; 96365; 96375; 99285; G2023; J7030; J7050; Q9957; A4216; C8929; J0696; J1940; U0004

== ENCOUNTER 2019-10-06 10:10 | Inpatient (IN) | payer MEDICARE, SELFPAY ==
[2019-09-28 18:18] VITALS: BMI 35.5
[2019-10-06] VITALS (14 sets, daily range): BP systolic 115–152; BP diastolic 46–95; PULSE 68–87; RESP 18–27; TEMP 35.9–36.9; O2SAT 86–97; BMI 34.0; BMI 33.5
--- NOTE | 2019-10-06 10:28 | RAD_ITS ---
STUDY: X-RAY CHEST REASON FOR EXAM: Female, 69 years old. CP, SOB TECHNIQUE: Single AP portable view of the chest. COMPARISON: Comparison is made with prior study dated September 28, 2019. FINDINGS: EKG electrode are seen. Since prior study, there has been progressive increase in interstitial markings in both lungs with vascular congestion suggestive of progressive CHF superimposed on chronic scarring. There is no demonstrated pleural abnormality. Normal size heart. Normal mediastinum and mignon. Normal visualized pulmonary arteries. There is atherosclerotic calcification of the aortic arch with tortuosity. There are diffuse degenerative changes of the visualized thoracic spine. There is degenerative osteoarthritis of the bilateral shoulders. There is no demonstrated abnormality of the visualized soft tissue structures of the upper abdomen. RAD/Chest 1 View (Portable) IMPRESSION: Progressive increase in the interstitial markings with vascular congestion suggestive of CHF superimposed on chronic scarring. Electronically Signed: Dany Crabtree, at 11:30 EDT , Service support ,
--- NOTE | 2019-10-06 10:28 | EKG12_ITS ---
Test Reason : CP Blood Pressure : / mmHG Vent. Rate : 077 BPM Atrial Rate : 077 BPM P-R Int : 132 ms QRS Dur : 086 ms QT Int : 412 ms P-R-T Axes : 042 060 056 degrees QTc Int : 466 ms Sinus rhythm with marked sinus arrhythmia Nonspecific ST and T wave abnormality Abnormal ECG Confirmed by ANGELICA MEDINA ([id number]), science editor ELDER LERNER ([id number]) on 10/14/2019 7:47:28 AM Referred By: ROD Confirmed By:ANGELICA MEDINA
[2019-10-06 10:36] LABS: Absolute Lymphocyte Count 1.42 X10^3/uL (0.83-4.51); Absolute Neutrophil Count 8.9 X10^3/uL (2.0-7.7); Basophil# 0.06 X10^3/uL; Basophil% 0.5 % (0-1); Eosinophil# 0.38 X10^3/uL; Eosinophils% 3.3 % (0-5); Hematocrit 33.3 % (37-47); Lymphocyte # 1.42 X10^3/ul (4.0); Lymphocyte % 12.3 % (19-41); Mean Corpuscular Hgb 29.4 pg (27.0-32.0); Mean Corpuscular Volume 97.9 fL (81-99); Mean Platelet Vol. 10.2 fl (6.2-12.0); Monocyte# 0.68 X10^3/uL; Monocyte% 5.9 % (0-10); NRBC Flagged by Analyzer 0 % (0-5); Neutrophil # 8.86 X10^3/uL (2.7-7.7); Platelet Count 319 K/mm3 (150-450); RBC Distribution Width CV 17.2 % (11.6-14.6); RBC Distribution Width SD 60.7 fl (35.1-43.9); White Blood Count 11.5 K/mm3 (4.4-11.0)
--- NOTE | 2019-10-06 10:42 | ED.DCSUM_ITS ---
History of Present Illness Chief Complaint: Chest Pain Informant: Patient Onset: Weeks Current Severity: Mild Maximum Severity: Mild Narrative: Patient presents complaining of shortness of breath that is been going on for months, she has multiple chronic medical problems including heart disease COPD peripheral vascular disease obesity diabetes, she 1 month ago had what appears to left FeM bypass to the left lower leg, then a week ago she presented [facility] with shortness of breath concern for NM she was then transferred back to [facility] where she had her surgery she indicates she did find there she did not require any specific cardiac management no stents, indicates she was taken off the oxygen the shortness of breath reoccurred she was sent home yesterday despite being short of breath without the oxygen She has been tested multiple times for coronavirus negative no exposures no fever no cough she denies chest pain just chronic shortness of breath, she does have history of COPD and distant NM no fever no cough no bowel bladder habits no orthopnea Past Medical History - Allergies and Home Meds Allergies/Adverse Reactions: Allergies aspirin [ASA] Adverse Reaction (Verified 10/06/19 10:15) Nausea also rash codeine Adverse Reaction (Verified 10/06/19 10:15) Nausea Primary Care Physician: Milan Márquez MD [Primary Care Provider] - Past Medical History: - - COPD prior NM recent left lower extremity femoral bypass Surgical History: appendectomy, cholecystectomy, hysterectomy Smoking Status: Former smoker - Family History Maternal Family History: Reports: Cancer - cervical Paternal Family History: Reports: Diabetes Review of Systems General: Denies: Chills, Fever, Sweats Eyes: Denies: Visual changes - bilaterally, Diplopia ENT: Denies: Rhinorrhea, Sore throat Cardiovascular: Denies: Chest pain, Palpitations Respiratory: Reports: Dyspnea. Denies: Cough, Dyspnea on exertion Gastrointestinal: Denies: Abdominal pain, Nausea, Vomiting, Diarrhea, Melena, Hematochezia Genitourinary: Denies: Dysuria, Hematuria, Frequency Musculoskeletal: Denies: Back pain, Extremity Pain Skin: Denies: Rash, Wounds Neurological: Denies: Headache, Weakness, Numbness Physical Exam Vital Signs/Narrative: Vital Signs Temp Pulse Resp BP Pulse Ox 10/06/19 10:17 97.6 F L 78 27 H 115/95 H 97 10/06/19 10:11 96.6 F L 87 26 H 115/95 H 86 General: Well nourished, Well developed, No Acute Distress Head: Normocephalic, Atraumatic Eyes: Perrl, EOMI ENT: Moist mucous membranes, No rhinorrhea Neck: Supple, Nontender Cardiovascular: Regular rate, Regular rhythm, No murmurs Respiratory: No distress, CTA bilaterally, Chest nontender Abdomen: Soft, Nontender, Nondistended, Normal bowel sounds Back: Nontender, Normal Inspection Extremities: Nontender, No edema, - - There is an open incision to the left femoral area, left calf area that is healing representing her incision no signs of infection Skin: Normal color, No rash Neurological: Alert, Oriented x3, Cranial nerves II-XII grossly intact, Normal Strength, Normal Sensation Psychological: Normal affect, Normal Mood Diagnostic/Tx/Re-eval - Medical Decision Making Patient's EKG shows a sinus rhythm no acute injury pattern her vital signs are unremarkable, on oxygen her pulse ox is 96% she is in no distress she indicates she feels fine and back to normal currently on the oxygen EKG shows a sinus rhythm rate about 77 no acute injury pattern appreciated nonspecific changes Patient's ED screening labs are generally unremarkable except her BNP is about 4000 troponin is lower at 0.112, chest x-ray shows signs of congestive heart failure, discussed with the patient discussed admission to [facility] or transfer back to [place] she does not wish to be transferred back to [place] she wants to be admitted here at this facility She is remained hemodynamically stable, she was treated IV Lasix, spoke with the hospitalist will arrange for admission for further management Admit stable Final impression acute congestive heart failure, recent non-STEMI, recent left femoral bypass, multiple health problems ED Disposition - Plan for ED Patient: Diagnosis: CHF (congestive heart failure), History of hypertension, PVD (peripheral vascular disease) Referrals: Milan Márquez MD [Primary Care Provider] -
[2019-10-06] MEDS: Ipratropium/Albuterol Sulfate 3 ML AMPUL.NEB INHALATION ×2 (11:00→19:24)
[2019-10-06 11:04] LABS: Anion Gap 11 (5-15); BUN 18 mg/dL (7-18); BUN/Creat Ratio 14.3 RATIO (10-20); Calcium,Total 8.8 mg/dL (8.5-10.1); Chloride 100 mmol/L (98-107); Creatinine, Serum 1.26 mg/dL (0.55-1.02); EST Glomerular Filtration Rate 45 mL/min (>60); Est Glom Filt Rate - Afr Amer 54 mL/min (>60); Estimated Creatinine Clearance 38.89 ml/min; Glucose 191 mg/dL (74-106); Potassium 4.8 mmol/L (3.5-5.1); Sodium Level 136 mmol/L (136-145)
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
[2019-10-06] MEDS: Furosemide 40 MG/4 ML Vial IV ×2 (12:12→18:15)
--- NOTE | 2019-10-06 12:12 | HP.PCM_ITS ---
Problem List (1) CHF exacerbation Status: Chronic (2) PVD (peripheral vascular disease) Status: Chronic (3) Obesity Status: Chronic (4) Depression Status: Chronic (5) Diabetes Status: Chronic Qualifiers: Diabetes mellitus type: type 2 (6) HLD (hyperlipidemia) Status: Chronic (7) GERD (gastroesophageal reflux disease) Status: Chronic (8) COPD (chronic obstructive pulmonary disease) Status: Chronic (9) History of hypertension Status: Chronic (10) Acute respiratory failure with hypoxia Status: Acute (11) Urinary tract infection Status: Ruled-out (12) Severe sepsis with acute organ dysfunction Status: Ruled-out (13) Anemia in chronic illness Status: Chronic (14) Hypertension Status: Chronic (15) New onset of congestive heart failure Status: Acute (16) Decubitus ulcer of sacral region, stage 1 Status: Chronic (17) NSTEMI (non-ST elevated myocardial infarction) Status: Acute (18) CHF (congestive heart failure) Status: Acute Qualifiers: Heart failure chronicity: unspecified History of Present Illness Date of Admission: 10/06/19 Chief Complaint: Sudden onset of shortness of breath today The patient is a 69 year old F with complicated history as mentioned above, last hospital stay 09/27 to 09/29/2019 and was transferred to [facility] from where she got discharged yesterday and came to ER in the morning with sudden onset of shortness of breath. She denies chest pain or pressure or tightness. At time of discharge, she was not short of breath even on walking and discharged off oxygen. She denies dizziness, syncope, fever or chills or new onset of cough. Denies recent exposure of cold with patient and was tested negative for 4 times. She has complicated history of peripheral arterial disease, left femoropopliteal surgery in September 2019 with open wound left with plan for secondary closure as per vascular surgery [facility], decubitus ulcer sacral region stage II, present on admission, COPD, hypertension, diabetes mellitus type 2 and dyslipidemia. Chest x-ray image reviewed and suggest pulmonary vascular congestion. Twelve- lead EKG normal sinus rhythm with sinus arrhythmia at [address]-T changes. Patient does not want to go work to [facility] therefore admitted. Past Medical History Past Medical History (Chronic Problems): Chronic Problems CHF exacerbation (Chronic) PVD (peripheral vascular disease) (Chronic) Obesity (Chronic) Depression (Chronic) Diabetes (Chronic) HLD (hyperlipidemia) (Chronic) GERD (gastroesophageal reflux disease) (Chronic) COPD (chronic obstructive pulmonary disease) (Chronic) History of hypertension (Chronic) Anemia in chronic illness (Chronic) Hypertension (Chronic) Decubitus ulcer of sacral region, stage 1 (Chronic) Allergies aspirin [ASA] Adverse Reaction (Verified 10/06/19 10:15) Nausea also rash codeine Adverse Reaction (Verified 10/06/19 10:15) Nausea Home Medications: Ambulatory Orders Medication Instructions Recorded Allopurinol 200 mg PO DAILY 06/27/19 B Complex with Vitamin C 1 tab PO DAILY 06/27/19 [B-Complex Plus Vitamin C] Gabapentin [Neurontin] 300 - 600 mg PO QHS 06/27/19 Glipizide 10 mg PO BID 06/27/19 Pantoprazole Sodium [Protonix] 40 mg PO DAILY 06/27/19 Pravastatin [Pravachol] 80 mg PO QHS 06/27/19 Rivaroxaban [Xarelto] 2.5 mg PO BID 06/27/19 Sertraline HCl 100 mg PO DAILY 06/27/19 Tizanidine HCl 4 mg PO Q6H PRN PRN 06/27/19 Lisinopril [Zestril] 10 mg PO DAILY #30 tab 06/28/19 Acetaminophen 500 - 1,000 mg PO Q6H PRN PRN 09/28/19 Albuterol Aerosols [Ventolin 2.5 mg INHALATION TID 09/28/19 Aerosols] Albuterol IH (ProAir) [Proair Hfa 2 puff INHALATION Q4H PRN PRN 09/28/19 (SP)Vent Pts] Amlodipine [Norvasc] 10 mg PO DAILY 09/28/19 Clopidogrel Bisulfate [Clopidogrel] 75 mg PO DAILY 09/28/19 Oxycodone [Oxyir] 5 mg PO Q6H PRN PRN 09/28/19 Sulfacetamide Sodium [Sulf-10] 1 drp OPHTHALMIC (EYE) 4X/DAY 09/28/19 Surgical History: appendectomy, cholecystectomy, hysterectomy Psychiatric History: 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 Denies: Cough, Sputum production Gastrointestinal: Denies: Abdominal Pain, Constipation, Diarrhea, Hematemesis, Hematochezia, Nausea, Melena, Vomiting Genitourinary: Denies: Dysuria, Frequency, Hematuria, Retention, Urgency Musculoskeletal: Reports: Joint Pain. Denies: Joint Tenderness Skin: Denies: Rash, Wounds Neurological: Denies: Numbness, Tingling, Focal weakness Psychiatric: Denies: Anxiety, Depression, Homicidal Ideations, Suicidal Ideations Hematologic/ Lymphatic: Denies: Easy Bruising, Easy Bleeding VTE Information - Inpt Only VTE Present on Admission: No VTE Mechan Device Prophylaxis: None VTE Pharm Prophylaxis ordered?: Yes - Physical Exam Vitals/I&O's: Vital Signs Temp Pulse Resp BP Pulse Ox 97.6 F L 72 26 H 152/54 H 94 10/06/19 10:17 10/06/19 11:41 10/06/19 11:41 10/06/19 11:41 10/06/19 11:41 Oxygen Flow Rate (L/min) 2 Oxygen Delivery Method Nasal Cannula Weight: 210 lb 15.718 oz Body Mass Index (BMI) 34.0 General: Alert, Oriented x3, Cooperative HEENT: Atraumatic, PERRLA, EOMI, Normocephalic Neck: Supple, No JVD, Negative Carotid Bruits Lungs: Diminished - Air entry diminished in all lung johnson., Rales - Bilateral lower lobe rales present, Short of Breath Cardiovascular: Regular rate, Regular Rhythm, Normal S1, Normal S2, No murmurs Abdomen: Bowel Sounds Present, Soft, Non Tender, Non-Distended Extremities: Capillary Refill Less than 3 Seconds, Edema, - - Left open femoropopliteal surgical wound. No significant slough on the surface of the wound. Skin: No rashes, No breakdown Musculoskeletal: No Tenderness to Palpation of Joints or Extremities Neurological: Cranial nerves II-XII grossly intact Psych/Mental Status: Normal Affect, Appropriate Laboratory Results 10/06/19 10:15: WBC 11.5 H, RBC 3.40 L, Hgb 10.0 L, Hct 33.3 L, MCV 97.9, MCH 29.4, MCHC 30.0 L, RDW Std Deviation 60.7 H, RDW Coeff of Geovanna 17.2 H, Plt Count 319, MPV 10.2, Immature Gran % (Auto) 1.000 H, Neut % (Auto) 77.0 H, Lymph % (Auto) 12.3 L, [place] % (Auto) 5.9, Eos % (Auto) 3.3, Baso % (Auto) 0.5, Absolute Neuts (auto) 8.9 H, Absolute Lymphs (auto) 1.42, Nucleated RBC % 0 10/06/19 10:15: Sodium 136, Potassium 4.8, Chloride 100, Carbon Dioxide 25.0, Anion Gap 11, BUN 18, Creatinine 1.26 H, Estim Creat Clear Calc 38.89, Est GFR (MDRD) Af Amer 54 L, Est GFR (MDRD) Non-Af 45 L, BUN/Creatinine Ratio 14.3, Glucose 191 H, Calcium 8.8, Troponin I 0.122 H 10/06/19 10:15: B-Natriuretic Peptide 3963.0 H Assessment/Plan All Active Problems Acute respiratory failure with hypoxia (Acute) Urinary tract infection (Ruled-out) Severe sepsis with acute organ dysfunction (Ruled-out) New onset of congestive heart failure (Acute) NSTEMI (non-ST elevated myocardial infarction) (Acute) CHF (congestive heart failure) (Acute) The patient is a 69 year old F with complicated history as mentioned above, last hospital stay 09/27 to 09/29/2019 and was transferred to [facility] from where she got discharged yesterday and came to ER in the morning with sudden onset of shortness of breath. Chest x-ray image reviewed and suggest pulmonary vascular congestion. Twelve- lead EKG normal sinus rhythm with sinus arrhythmia at [address]-T changes 1. Acute hypoxic respiratory insufficiency secondary to acute systolic CHF exacerbation: Patient remains in PCU. Lasix 40 mg IV twice daily. Cycle troponin enzymes. Patient had last echo on 09/28/2019 during previous hospital stay and reported as severe segmental systolic dysfunction, with hypokinetic and akinetic LV, EF 30%. LA mildly enlarged. Valvular calcification present but no significant stenosis or regurgitation. 2. Acute systolic heart failure: Start on CHF core measures including Plavix, lisinopril statin. Start with low-dose Coreg, and titrate upwards. Unclear why patient is not on beta-tang. Daily weight monitoring, strict intake and output and diuretic management as mentioned above. Cardiology consult, discussed with Dr. Rock. Patient has mildly elevated troponin 0 0.122 and BNP about 4000. 3. COPD, not on home oxygen: Currently patient seems not in exacerbation. DuoNeb every 6 hourly as needed albuterol nebulization. Incentive spirometry and chest physiotherapy. 4. CKD stage III possible diabetic nephropathy along with diuretic: Patient creatinine was 1.54 during last admission about a week ago since patient is currently recovering, her baseline 1.08 in June 2019. Today 1.26. 5. CAD-continue Plavix, lisinopril, metoprolol. 6 Extensive peripheral vascular disease with recent left femoropopliteal bypass at [facility] approximately 1 month ago with open wound. Consult wound care nurse. 7 chronic normocytic anemia-check CBC. Last A1c was 8.8 on 09/29/2019. Today hemoglobin 10. 8. Hypertension-stable, continue current regimen. 9. Hyperlipidemia: On pravastatin will check the lipid. 10. Type 2 diabetes [id number] with sliding scale insulin. 11. Obesity-encouraged diet and lifestyle modifications. DVT prophylaxis: On Eliquis 2.5 mg twice daily. At home, she is on Xarelto 2.5 mg twice daily Living will/advanced directive/end of life care: Patient does not have living will or advanced directive. After discussion of procedures involved with full code, DNR CC arrest and DNR CC, the patient opted for full code. Patient does want artificial life support including intubation, tube feed, ventilator and/chest compression, central venous catheter, vasopressor and DC shock if needed Total time spent in [id number] encounter in discussion of advanced directive 16 minutes. Inpatient E&M: 35066 Init Hosp L3 Procedures: 52247 Advncd Care Plan 30 Min
--- NOTE | 2019-10-06 14:09 | EKG12_ITS ---
Test Reason : CHF Blood Pressure : / mmHG Vent. Rate : 070 BPM Atrial Rate : 070 BPM P-R Int : 154 ms QRS Dur : 084 ms QT Int : 418 ms P-R-T Axes : 055 069 065 degrees QTc Int : 451 ms Sinus rhythm with Premature atrial complexes Nonspecific T wave abnormality Abnormal ECG When compared with ECG of 06-OCT-2019 10:37, MANUAL COMPARISON REQUIRED, DATA IS UNCONFIRMED Confirmed by RIC EISENBERG, BURAK ([id number]), photo editor TIM BROWN ([id number]) on 10/08/2019 9:21:27 AM Referred By: SHABANA Confirmed By:BURAK LARIOS MD
--- NOTE | 2019-10-06 14:12 | CON.PCM_ITS ---
Problem List (1) CHF exacerbation Status: Chronic (2) PVD (peripheral vascular disease) Status: Chronic (3) Hypertension Status: Chronic (4) NSTEMI (non-ST elevated myocardial infarction) Status: Acute Reason for Consult Date of Consultation: 10/06/19 Reason for Consultation: Congestive heart failure, non-STEMI, LV dysfunction, hypertension, hypercholesterolemia, coronary disease, peripheral vascular disease History of Present Illness: The patient is a 69 year old F, with diabetes, hypertension, hyperlipidemia, coronary artery disease status post what appears to be myocardial infarction several years ago. It is been many years since her last heart catheterization, so long that she cannot remember. She does not have a local primary staff respiratory therapist. She has a [id number] smoking history and quit about 15 years ago. She does not have documented COPD and does not use oxygen at home. In addition the patient is status post right lower extremity peripheral vascular surgical correction, the specifics of which I do not know at this writing. The patient was recently seen by my colleague Dr. Rivera on 09/29/2019. This was in response to an acute on chronic congestive heart failure exacerbation requiring admission to the hospital. This was on the heels of a recent left lower extremity femoropopliteal bypass, with difficulty healing at the wound site which is been left for secondary intention healing. Patient underwent a 2D echo with Doppler on 09/29/2019 with the following results: Moderately severe segmental systolic dysfunction (see wall motion). The estimated ejection fraction is 30 %. The left atrium is mildly enlarged. There is mild mitral annular calcification. Extension of the mitral annular calcification onto the base of the posterior mitral valve leaflet. Trivial mitral valve insufficiency. Trivial tricuspid valve insufficiency. Mild focal aortic valve calcification. Unable to estimate RV systolic pressure/pulmonary artery pressure due to technically difficult study. Transmitral diastolic flow velocities suggest diastolic dysfunction (pseudonorm al pattern). At that time, the patient had a non-ST elevation myocardial infarction, and given her LV dysfunction and her peripheral vascular complexity, she was transferred back up to [facility] where her peripheral surgeon was located. There she met a staff respiratory therapist, and was treated for CHF exacerbation and subsequently sent home yesterday. This morning at 4 AM, the patient developed another episode of severe shortness of breath, and difficulty with gasping for air. She was brought to [facility] ER where chest x-ray was performed which showed bilateral pulmonary edema and right pleural effusion which appeared to be worse than her previous chest x-ray. Her initial troponin was 0.122, and now is increased to 0.132. EKG is pending. In addition the patient has chronic renal insufficiency which is known. Patient reports that she is compliant with her medications. On further history, the patient denies any chest pain, angina, but did complain of mild abdominal bloating over the last several days. She was placed on oxygen, and given IV Lasix and feeling much better. Past Medical History Allergies/Adverse Reactions: Allergies aspirin [ASA] Adverse Reaction (Verified 10/06/19 10:15) Nausea also rash codeine Adverse Reaction (Verified 10/06/19 10:15) Nausea Home Medications: Ambulatory Orders Medication Instructions Recorded Allopurinol 200 mg PO DAILY 06/27/19 B Complex with Vitamin C 1 tab PO DAILY 06/27/19 [B-Complex Plus Vitamin C] Gabapentin [Neurontin] 300 mg PO QHS 06/27/19 Glipizide 10 mg PO BID 06/27/19 Pantoprazole Sodium [Protonix] 40 mg PO DAILY 06/27/19 Pravastatin [Pravachol] 80 mg PO QHS 06/27/19 Rivaroxaban [Xarelto] 2.5 mg PO BID 06/27/19 Sertraline HCl 100 mg PO DAILY 06/27/19 Tizanidine HCl 4 mg PO Q6H PRN PRN 06/27/19 Lisinopril [Zestril] 10 mg PO DAILY #30 tab 06/28/19 Acetaminophen 500 - 1,000 mg PO Q6H PRN PRN 09/28/19 Albuterol Aerosols [Ventolin 2.5 mg INHALATION TID 09/28/19 Aerosols] Albuterol IH (ProAir) [Proair Hfa 2 puff INHALATION Q4H PRN PRN 09/28/19 (SP)Vent Pts] Amlodipine [Norvasc] 10 mg PO DAILY 09/28/19 Clopidogrel Bisulfate [Clopidogrel] 75 mg PO DAILY 09/28/19 Oxycodone [Oxyir] 5 mg PO Q6H PRN PRN 09/28/19 Sulfacetamide Sodium [Sulf-10] 1 drp OPHTHALMIC (EYE) 4X/DAY PRN 05/26/20 Past Medical History (Chronic Problems): Chronic Problems CHF exacerbation (Chronic) PVD (peripheral vascular disease) (Chronic) Obesity (Chronic) Depression (Chronic) Diabetes (Chronic) HLD (hyperlipidemia) (Chronic) GERD (gastroesophageal reflux disease) (Chronic) COPD (chronic obstructive pulmonary disease) (Chronic) History of hypertension (Chronic) Anemia in chronic illness (Chronic) Hypertension (Chronic) Decubitus ulcer of sacral region, stage 1 (Chronic) Surgical History: appendectomy, cholecystectomy, hysterectomy Psychiatric History: No pertinent psych hx [employer] CL[employer] History: cervical cancer - *Family History Maternal History Items: Cancer - cervical Paternal History Items: Diabetes Smoking Status: Former smoker Tobacco Use: Cigarettes Review of Systems - Review of Systems General: Denies: Fever, Night Sweats, Fatigue Cardiovascular: Reports: Shortness of Breath, Shortness of Breath at Rest. Denies: Chest Discomfort, Orthopnea, PND, Peripheral Edema, Palpitations, Lightheadedness, Dizziness, Near Syncope, Syncope Respiratory: Denies: Cough, Sputum Production, Hemoptysis Gastrointestinal: Denies: Hematemesis, Hematochezia, Melena Genitourinary: Denies: Dysuria, Hematuria Skin: Denies: Rash Subjectve: Patient laying in bed, no acute distress. Objective: Vital Signs Temp Pulse Resp BP Pulse Ox 98.1 F 70 18 149/46 H 97 10/06/19 13:20 10/06/19 13:20 10/06/19 13:20 10/06/19 13:20 10/06/19 13:20 Oxygen Flow Rate (L/min) 2 Oxygen Delivery Method Nasal Cannula Weight: 207 lb 10.807 oz Body Mass Index (BMI) 33.5 General: Awake, Alert, Oriented x 3 HEENT: PERRL, EOMI, Sclera Non Icteric Neck: Supple, Good ROM, No Lymph Node Enlargement Lungs: Diminished Right Base, Rales - Suman Bases Cardiovascular: Regular Rhythm, Normal S2, No Rubs, No Gallops Murmur Murmur: Grade 2/6, Crescendo-Decrescendo Vascular: No Carotid Bruits, Normal Femoral Pulses, Normal Radial Pulses, Normal Dorsalis Pedal Pulse, Normal Posterior Tibial Pulses Abdomen: Bowel Sounds Present, Soft, Non Tender, No HSM, No Organomegaly Extremities: No Cyanosis, No Clubbing, No edema Neurological: No Focal Motor or Sensory Deficit 06/03/20 10:15: WBC 11.5 H, RBC 3.40 L, Hgb 10.0 L, Hct 33.3 L, MCV 97.9, MCH 29.4, MCHC 30.0 L, Plt Count 319, MPV 10.2, Immature Gran % (Auto) 1.000 H, Neut % (Auto) 77.0 H, Lymph % (Auto) 12.3 L, [place] % (Auto) 5.9, Eos % (Auto) 3.3, Baso % (Auto) 0.5, Absolute Neuts (auto) 8.9 H, Nucleated RBC % 0 10/06/19 10:15: Sodium 136, Potassium 4.8, Chloride 100, Carbon Dioxide 25.0, Anion Gap 11, BUN 18, Creatinine 1.26 H, Est GFR (MDRD) Af Amer 54 L, Est GFR (MDRD) Non-Af 45 L, BUN/Creatinine Ratio 14.3, Glucose 191 H, Calcium 8.8, Troponin I 0.122 H 10/06/19 10:15: B-Natriuretic Peptide 3963.0 H 10/06/19 13:15: Magnesium 2.0, Troponin I 0.132 H Rhythm: EKG: ECHO: Stress Test: Cardiac Cath: PCI: CT Surgery: Holter monitor: EPS: PPM: CXR: Chest CT Scan: Assessment/Plan 1. Acute on chronic congestive heart failure: The patient has once again been readmitted for acute on chronic congestive heart failure with dyspnea, shortness of breath, tachypnea evidence on chest x-ray of bilateral pulmonary edema, and right pleural effusion. Her EKG is pending. In addition she has a very small troponin release which was also present on her most recent admission around 09/29/2019. At that time she was referred up to the [facility] [place] for further evaluation but did not undergo a cardiac catheterization per the patient. At this point I would recommend continuing IV Lasix 40 mg twice daily until the patient has reached her dry weight, and is able to breathe without supplemental oxygen. In addition I would recommend to our secretaries to obtain her previous operative report of both her left and right peripheral vascular surgeries to identify whether she is a candidate for diagnostic coronary angiogram via either her right groin, or right radial approach. She is not a good candidate for left femoral approach given her recent femoropopliteal bypass on the left side. Recommend continuing baby aspirin, Plavix, and Eliquis. Once the patient is been medically tuned up, we will need to hold her Eliquis for period of 3 days time. Not believe requires heparin at this time. I would recommend holding off on diagnostic coronary angiogram until her wound site in her left lower extremity has completely healed. In her Coreg, lisinopril. Recommend a 1500 cc fluid restriction as well. Do not believe she requires a repeat echocardiogram. 2. Hyperlipidemia: Recommend obtaining a fasting lipid profile. Her LDL should be less than 70. Continue pravastatin. 3. Peripheral vascular disease: I inspected the patient's wound site, which appears to be open and healing well with granulation tissue. Does not appear to be inflamed or infected. Patient may require consultation with either Dr. Corona or Dr. Duarte. 4. Thank you very much for the opportunity to participate in the cardiac care of your patient. Patient wishes to transfer cardiac care to Dr. Rock versus being seen again by Dr. Rivera. Patient had absolutely no problems with Dr. Rivera, but Dr. Rock takes care of her son, and she wishes to consolidate her care. Inpatient E&M: 98931 Init Hosp L2
[2019-10-06] MEDS: oxyCODONE 5 MG Tablet PO ×2 (15:00→22:41)
--- NOTE | 2019-10-06 15:11 | NURSING ---
wound photo: left medial lower leg
--- NOTE | 2019-10-06 15:12 | NURSING ---
wound photo: left groin
--- NOTE | 2019-10-06 15:13 | NURSING ---
wound photo: lana cleft
--- NOTE | 2019-10-06 15:50 | CASEMGMT ---
Social Work PCU Initial assessment completed while patient in the ED today. Refer to prior documentation this date, by this scientific writer for details. Call to patient's , Walter Munoz at [phone], as per conversation with patient this date. Updated to patient's admission. reports he was aware but appreciated the phone call regardless. Supportive listening provided to the regarding patient's hospitalizations and medical needs. Plan: Case management and social work available as needed or indicated. Patient's goal is to return home. Monitor for possible need for home O2. -KELY Seth, WHIZZER OPERATOR
[2019-10-06] MEDS: Sulfacetamide Sodium 15ML OPTH.BTL 1 DRP EACH EYE ×3 (16:17→23:52)
[2019-10-06] MEDS: glipiZIDE 10 MG Tablet PO (16:17)
[2019-10-06] MEDS: Insulin Lispro 100 UNIT/ML INSULN.PEN SC (16:19)
[2019-10-06 16:50] LABS: Bedside Glucose 163 mg/dL (70-110)
[2019-10-06 17:32] LABS: M R Staph aureus DNA By PCR Negative (Negative); Probe Check PASS; Specimen Processing Control PASS; Staph aureus DNA By PCR NEGATIVE (Negative)
[2019-10-06] MEDS: 0.9% Saline Lock 10 ML Syringe IV (18:16)
[2019-10-06 23:41] LABS: Bedside Glucose 68 mg/dL (70-110)
[2019-10-06] MEDS: Carvedilol 3.125 MG TABLET PO (23:55)
[2019-10-06] MEDS: Gabapentin 300 MG Capsule PO (23:55)
[2019-10-06] MEDS: APIXABAN 2.5 MG TABLET PO (23:55)
[2019-10-06] MEDS: Pravastatin 80 MG Tablet PO (23:56)
[2019-10-07] VITALS (11 sets, daily range): BP systolic 109–156; BP diastolic 31–53; PULSE 64–81; RESP 14–18; TEMP 36.6–36.9; O2SAT 94–98
[2019-10-07 00:06] LABS: Bedside Glucose 103 mg/dL (70-110)
[2019-10-07 05:58] LABS: Absolute Lymphocyte Count 1.04 X10^3/uL (0.83-4.51); Absolute Neutrophil Count 4.5 X10^3/uL (2.0-7.7); Basophil# 0.03 X10^3/uL; Basophil% 0.5 % (0-1); Eosinophil# 0.21 X10^3/uL; Eosinophils% 3.3 % (0-5); Hematocrit 30.2 % (37-47); Hemoglobin 9.3 g/dL (12.0-15.0); Lymphocyte # 1.04 X10^3/ul (4.0); Lymphocyte % 16.6 % (19-41); Mean Corp Hgb Conc 30.8 g/dL (32-36); Mean Corpuscular Hgb 29.5 pg (27.0-32.0); Mean Corpuscular Volume 95.9 fL (81-99); Mean Platelet Vol. 9.6 fl (6.2-12.0); NRBC Flagged by Analyzer 0 % (0-5); Neutrophil # 4.47 X10^3/uL (2.7-7.7); Neutrophil % 71.1 % (47-70); Platelet Count 221 K/mm3 (150-450); RBC Distribution Width CV 17.2 % (11.6-14.6); RBC Distribution Width SD 58.9 fl (35.1-43.9); Red Blood Count 3.15 M/mm3 (4.2-5.4); White Blood Count 6.3 K/mm3 (4.4-11.0)
[2019-10-07 06:55] LABS: Bedside Glucose 129 mg/dL (70-110)
[2019-10-07] MEDS: Ipratropium/Albuterol Sulfate 3 ML AMPUL.NEB INHALATION ×3 (07:05→19:19)
[2019-10-07 07:09] LABS: AST(SGOT) 22 U/L (15-37); Alanine Aminotransfer ALT/SGPT 16 U/L (13-56); Albumin, Serum 2.4 g/dL (3.2-5.0); Alkaline Phosphatase 76 U/L (45-117); Anion Gap 10 (5-15); BUN 17 mg/dL (7-18); BUN/Creat Ratio 14.5 RATIO (10-20); Calcium,Total 8.7 mg/dL (8.5-10.1); Chloride 103 mmol/L (98-107); Cholesterol 131 mg/dL (200); Creatinine, Serum 1.17 mg/dL (0.55-1.02); EST Glomerular Filtration Rate 49 mL/min (>60); Est Glom Filt Rate - Afr Amer 59 mL/min (>60); Estimated Creatinine Clearance 41.88 ml/min; Globulin 4.1 g/dL (2.2-4.2); Glucose 134 mg/dL (74-106); High Density Lipoprotein 26 mg/dL; Potassium 3.9 mmol/L (3.5-5.1); Protein, Total 6.5 g/dL (6.4-8.2); Sodium Level 137 mmol/L (136-145); Thyroid Stim Hormone (TSH) 5.16 uIU/mL (0.358-3.74); Triglycerides 144 mg/dL; Very Low Density Lipoprotein 29 mg/dL (5-40)
[2019-10-07] MEDS: Carvedilol 3.125 MG TABLET PO ×2 (09:12→09:40)
[2019-10-07] MEDS: Aspirin 81 MG TAB.CHEW PO (09:13)
[2019-10-07] MEDS: Vitamin B Comp W-C Capsule 1 CAP PO (09:13)
[2019-10-07] MEDS: APIXABAN 2.5 MG TABLET PO ×2 (09:14→21:21)
[2019-10-07] MEDS: Juven (unflavored) Packet 1 PACKET PO ×2 (09:14→16:44)
--- NOTE | 2019-10-07 09:15 | PN.CARD_ITS ---
Subjectve: Patient doing much better this morning, able to lay down flat and go to sleep without any difficulty. Shortness of breath has resolved. Wound change in progress, and wound appears to be clean/dry/intact with decent granulation tissue. No weepage or signs of infections at this time. No chest pain overnight. Telemetry showed normal sinus rhythm, no arrhythmias. Objective: Vital Signs Temp Pulse Resp BP Pulse Ox 98.3 F 69 18 156/50 H 98 10/07/19 09:10 10/07/19 09:10 10/07/19 09:10 10/07/19 09:10 10/07/19 09:10 Oxygen Flow Rate (L/min) 2 Oxygen Delivery Method Nasal Cannula Weight: 206 lb 2.115 oz Body Mass Index (BMI) 33.5 Intake and Output for Last 24 Hours 10/05/19 10/06/19 10/07/19 23:59 23:59 23:59 Intake Total 180 / 180 Output Total 0 / 0 Balance 180 / 180 0 / 0 General: Awake, Alert, Oriented x 3 HEENT: PERRL, EOMI, Sclera Non Icteric Neck: Supple, Good ROM, No Lymph Node Enlargement Lungs: Clear to auscultation Cardiovascular: Regular Rhythm, Normal S2, No Rubs, No Gallops Murmur Murmur: Grade 2/6, Crescendo-Decrescendo Vascular: No Carotid Bruits, Normal Femoral Pulses, Normal Radial Pulses, Normal Dorsalis Pedal Pulse, Normal Posterior Tibial Pulses Abdomen: Bowel Sounds Present, Soft, Non Tender, No HSM, No Organomegaly Extremities: No Cyanosis, No Clubbing, No edema Neurological: No Focal Motor or Sensory Deficit 10/06/19 10:15: WBC 11.5 H, RBC 3.40 L, Hgb 10.0 L, Hct 33.3 L, MCV 97.9, MCH 29.4, MCHC 30.0 L, Plt Count 319, MPV 10.2, Immature Gran % (Auto) 1.000 H, Neut % (Auto) 77.0 H, Lymph % (Auto) 12.3 L, [place] % (Auto) 5.9, Eos % (Auto) 3.3, Baso % (Auto) 0.5, Absolute Neuts (auto) 8.9 H, Nucleated RBC % 0 10/06/19 10:15: Sodium 136, Potassium 4.8, Chloride 100, Carbon Dioxide 25.0, Anion Gap 11, BUN 18, Creatinine 1.26 H, Est GFR (MDRD) Af Amer 54 L, Est GFR (MDRD) Non-Af 45 L, BUN/Creatinine Ratio 14.3, Glucose 191 H, Calcium 8.8, Troponin I 0.122 H 10/06/19 10:15: B-Natriuretic Peptide 3963.0 H 10/06/19 13:15: Magnesium 2.0, Troponin I 0.132 H 10/06/19 16:25: Troponin I 0.142 H 10/07/19 05:48: Sodium 137, Potassium 3.9, Chloride 103, Carbon Dioxide 24.0, Anion Gap 10, BUN 17, Creatinine 1.17 H, Est GFR (MDRD) Af Amer 59 L, Est GFR (MDRD) Non-Af 49 L, BUN/Creatinine Ratio 14.5, Glucose 134 H, Calcium 8.7, Total Bilirubin 0.50, Direct Bilirubin 0.20, Triglycerides 144, Cholesterol 131, LDL Cholesterol 76, VLDL Cholesterol 29, HDL Cholesterol 26 L 10/07/19 05:48: WBC 6.3, RBC 3.15 L, Hgb 9.3 L, Hct 30.2 L, MCV 95.9, MCH 29.5, MCHC 30.8 L, Plt Count 221, MPV 9.6, Immature Gran % (Auto) 0.500, Neut % (Auto) 71.1 H, Lymph % (Auto) 16.6 L, [place] % (Auto) 8.0, Eos % (Auto) 3.3, Baso % (Auto) 0.5, Absolute Neuts (auto) 4.5, Nucleated RBC % 0 Rhythm: EKG: ECHO: Stress Test: Cardiac Cath: PCI: CT Surgery: Holter monitor: EPS: PPM: CXR: Chest CT Scan: Medical Necessity - Tobacco Use Smoking Status: Former smoker Tobacco Use: Cigarettes Assessment/Plan 1. Acute on chronic congestive heart failure: The patient has once again been readmitted for acute on chronic congestive heart failure with dyspnea, shortness of breath, tachypnea evidence on chest x-ray of bilateral pulmonary edema, and right pleural effusion. Her EKG is pending. In addition she has a very small troponin release which was also present on her most recent admission around 09/29/2019. At that time she was referred up to the [facility] [place] for further evaluation but did not undergo a cardiac catheterization per the patient. Now that the patient is able to lay down flat, I recommend switching her to Lasix 40 mg p.o. twice daily going forward. She will continue her lisinopril. We will continue Coreg. In addition I would recommend to our secretaries to obtain her previous operative report of both her left and right peripheral vascular surgeries to identify whether she is a candidate for diagnostic coronary angiogram via either her right groin, or right radial approach. She is not a good candidate for left femoral approach given her recent femoropopliteal bypass on the left side. She will most likely require radial approach. Recommend continuing baby aspirin, Plavix, and Eliquis. Once the patient is been medically tuned up, and her wound is healed, we will need to hold her Eliquis for period of 3 days time. I would recommend holding off on diagnostic coronary angiogram on this admission until her wound site in her left lower extremity has completely healed. In her Coreg, lisinopril. Recommend a 1500 cc fluid restriction as well. Do not believe she requires a repeat echocardiogram. 2. Hyperlipidemia: Recommend obtaining a fasting lipid profile. Her LDL should be less than 70. Continue pravastatin. 3. Peripheral vascular disease: I inspected the patient's wound site, which appears to be open and healing well with granulation tissue. Does not appear to be inflamed or infected. I do not believe she requires consultation with peripheral vascular surgery at this time. 4. Thank you very much for the opportunity to participate in the cardiac care of your patient. Patient wishes to transfer cardiac care to Dr. Rock versus being seen again by Dr. Rivera. Patient had absolutely no problems with Dr. Rivera, but Dr. Rock takes care of her son, and she wishes to consolidate her care. Cardiac catheterization via radial approach will be planned for outpatient unless or until the patient has recurrent symptoms despite maximal medical therapy.
[2019-10-07] MEDS: Furosemide 40 MG/4 ML Vial IV ×2 (09:16→16:50)
[2019-10-07] MEDS: Sulfacetamide Sodium 15ML OPTH.BTL 1 DRP EACH EYE ×4 (09:16→21:23)
[2019-10-07] MEDS: Sertraline 100 MG Tablet PO (09:23)
[2019-10-07] MEDS: amLODIPine 10 MG Tablet PO (09:23)
[2019-10-07] MEDS: Clopidogrel Bisulfate 75 MG Tablet PO (09:23)
[2019-10-07] MEDS: Lisinopril 10 MG Tablet PO ×2 (09:23→16:46)
[2019-10-07] MEDS: Pantoprazole Sodium 40 MG Tablet PO (09:23)
[2019-10-07] MEDS: Allopurinol 100 MG Tablet 200 MG PO (09:25)
[2019-10-07] MEDS: 0.9% Saline Lock 10 ML Syringe IV ×2 (09:28→16:51)
[2019-10-07] MEDS: Insulin Lispro 100 UNIT/ML INSULN.PEN SC ×3 (11:27→21:22)
[2019-10-07 12:41] LABS: Bedside Glucose 195 mg/dL (70-110)
--- NOTE | 2019-10-07 15:02 | PN_ITS ---
Patient Problems: Active and Suspected Problems CHF (congestive heart failure) (Acute) Objective: Patient blood pressure is slightly elevated 153/31 intermittently. Discussed with patient's vascular surgeon, Dr Parish. She has complex peripheral arterial disease. Currently left femoropopliteal surgical wound is open and is dry with relation tissue. He advised not to wrap the leg. Vitals/I&O's: Vital Signs Temp Pulse Resp BP Pulse Ox 98.4 F 64 18 153/31 H 94 10/07/19 15:00 10/07/19 15:00 10/07/19 15:00 10/07/19 15:00 10/07/19 15:00 Oxygen Flow Rate (L/min) 2 Oxygen Delivery Method Nasal Cannula Weight: 206 lb 2.115 oz Body Mass Index (BMI) 33.5 Intake and Output for Last 24 Hours 10/05/19 10/06/19 10/07/19 23:59 23:59 23:59 Intake Total 180 / 180 120 / 120 Output Total 0 / 0 Balance 180 / 180 120 / 120 General: Alert, Oriented x3, Cooperative HEENT: Atraumatic, PERRLA, EOMI, Normocephalic Neck: Supple, No JVD, Negative Carotid Bruits Lungs: Clear to auscultation, No rhonchi, No wheeze, No rales, Diminished Cardiovascular: Regular rate, Regular Rhythm, Normal S1, Normal S2, No murmurs Abdomen: Bowel Sounds Present, Soft, Non Tender, Non-Distended Extremities: No edema, Capillary Refill Less than 3 Seconds Skin: Ulcer/ Wound - Left femoropopliteal bypass open wound with secondary intention healing. Granulation tissue present. Left groin has suture which is intact. Musculoskeletal: No Tenderness to Palpation of Joints or Extremities, Arthritic Changes Neurological: Cranial nerves II-XII grossly intact Psych/Mental Status: Normal Affect, Appropriate Microbiology Past 72 Hours 10/06/19 14:45 Wound - Leg, Left Gram Stain - Final 10/06/19 14:45 Wound - Leg, Left Wound Culture - Preliminary No growth-Final to follow Laboratory Results 10/06/19 14:45: S.aureus Protein A PCR NEGATIVE, MRSA (PCR) Negative 10/06/19 16:12: POC Glucose 163 H 10/06/19 16:25: Troponin I 0.142 H 10/06/19 22:49: POC Glucose 68 L 10/06/19 23:51: POC Glucose 103 10/07/19 05:48: Sodium 137, Potassium 3.9, Chloride 103, Carbon Dioxide 24.0, Anion Gap 10, BUN 17, Creatinine 1.17 H, Estim Creat Clear Calc 41.88, Est GFR (MDRD) Af Amer 59 L, Est GFR (MDRD) Non-Af 49 L, BUN/Creatinine Ratio 14.5, Glucose 134 H, Calcium 8.7, Total Bilirubin 0.50, Direct Bilirubin 0.20, AST 22, ALT 16, Alkaline Phosphatase 76, Total Protein 6.5, Albumin 2.4 L, Globulin 4.1, Triglycerides 144, Cholesterol 131, LDL Cholesterol 76, VLDL Cholesterol 29, HDL Cholesterol 26 L, TSH 5.16 H 10/07/19 05:48: WBC 6.3, RBC 3.15 L, Hgb 9.3 L, Hct 30.2 L, MCV 95.9, MCH 29.5, MCHC 30.8 L, RDW Std Deviation 58.9 H, RDW Coeff of Geovanna 17.2 H, Plt Count 221, MPV 9.6, Immature Gran % (Auto) 0.500, Neut % (Auto) 71.1 H, Lymph % (Auto) 16.6 L, Burke % (Auto) 8.0, Eos % (Auto) 3.3, Baso % (Auto) 0.5, Absolute Neuts (auto) 4.5, Absolute Lymphs (auto) 1.04, Nucleated RBC % 0 10/07/19 06:42: POC Glucose 129 H 10/07/19 11:26: POC Glucose 195 H Current Medications Acetaminophen (Tylenol) 650 mg PO Q6H PRN PRN PRN Reason: Pain Score 1-10/Temp > 100.7 F Albuterol Sulfate (Ventolin Aerosols) 2.5 mg INHALATION Q2H PRN PRN PRN Reason: SOB/Wheezing Albuterol/Ipratropium (Duoneb) 3 ml INHALATION Q6H.RT [facility] Last Admin: 10/07/19 13:18 Dose: 3 ml Documented by: Allopurinol (Zyloprim) 200 mg PO DAILY [facility] Last Admin: 10/07/19 09:25 Dose: 200 mg Documented by: Amlodipine Besylate (Norvasc) 10 mg PO DAILY [facility] Last Admin: 10/07/19 09:23 Dose: 10 mg Documented by: Apixaban (Eliquis) 2.5 mg PO BID [facility] Last Admin: 10/07/19 09:14 Dose: 2.5 mg Documented by: Aspirin (Aspirin, Baby) 81 mg PO DAILY@0800 [facility] Last Admin: 10/07/19 09:13 Dose: 81 mg Documented by: Carvedilol (Coreg) 6.25 mg PO BID [facility] Last Admin: 10/07/19 09:42 Dose: Not Given Documented by: Clopidogrel Bisulfate (Plavix) 75 mg PO DAILY [facility] Last Admin: 10/07/19 09:23 Dose: 75 mg Documented by: Dextrose (D50w Syringe) 0 gm IV X1 PRN; Protocol PRN Reason: Hypoglycemia Furosemide (Lasix) 40 mg IV BID@1000,1800 [facility] Last Admin: 10/07/19 09:16 Dose: 40 mg Documented by: Gabapentin (Neurontin) 300 mg PO QHS [facility] Last Admin: 10/06/19 23:55 Dose: 300 mg Documented by: Glucagon () 1 mg IM .X1 PRN PRN Reason: Hypoglycemia Insulin Human Lispro (Humalog Kwikpen (Bkc)) 0 unit SC [facility]; Protocol Last Admin: 10/07/19 11:27 Dose: 2 u Documented by: Lisinopril (Zestril) 10 mg PO DAILY [facility] Last Admin: 10/07/19 09:23 Dose: 10 mg Documented by: Morphine Sulfate () 2 mg IV Q3H PRN PRN PRN Reason: Pain Score 4-10/10 Multivitamins (Allbee W/C Caplet, Thera B Comp/C) [facility] Admin: 10/07/19 09:13 Dose: 1 capsule Documented by: Nitroglycerin (Nitrostat) 0.4 mg SUBLINGUAL Q5M PRN PRN Reason: CARDIAC/CHEST PAIN Oxycodone HCl (Oxyir) 5 mg PO Q6H PRN PRN PRN Reason: Pain Score 4-10/10 Last Admin: 10/06/19 22:41 Dose: 5 mg Documented by: Pantoprazole Sodium (Protonix) 40 mg PO DAILY [facility] Last Admin: 10/07/19 09:23 Dose: 40 mg Documented by: Pravastatin Sodium (Pravachol) 80 mg PO QHS [facility] Last Admin: 10/06/19 23:56 Dose: 80 mg Documented by: Senna/Docusate Sodium (Senokot-S, Vicky-Colace) 2 tablet PO BID PRN PRN PRN Reason: Constipation Sertraline HCl (Zoloft) 100 mg PO DAILY [facility] Last Admin: 10/07/19 09:23 Dose: 100 mg Documented by: Sodium Chloride () 10 - 40 ml IV UD PRN PRN Reason: SALINE FLUSH Last Admin: 10/07/19 09:28 Dose: 10 ml Documented by: Sulfacetamide Sodium (Sulf-10) 1 drop EACH EYE 4X/DAY [facility] Last Admin: 10/07/19 14:53 Dose: 1 drop Documented by: Tizanidine HCl (Zanaflex) 4 mg PO Q6H PRN PRN PRN Reason: SPASMS STROKE Vital Signs/Narrative: Vital Signs Temp Pulse Resp BP Pulse Ox 10/07/19 15:00 98.4 F 64 18 153/31 H 94 10/07/19 13:18 71 16 Medical Necessity - Tobacco Use Smoking Status: Former smoker Tobacco Use: Cigarettes Assessment/Plan All Active Problems Acute respiratory failure with hypoxia (Acute) Urinary tract infection (Ruled-out) Severe sepsis with acute organ dysfunction (Ruled-out) New onset of congestive heart failure (Acute) NSTEMI (non-ST elevated myocardial infarction) (Acute) CHF (congestive heart failure) (Acute) The patient is a 69 year old F with complicated history as mentioned above, last hospital stay 09/27 to 09/29/2019 and was transferred to [facility] from where she got discharged yesterday and came to ER in the morning with sudden onset of shortness of breath. Chest x-ray image reviewed and suggest pulmonary vascular congestion. Twelve- lead EKG normal sinus rhythm with sinus arrhythmia at [address]-T changes 1. Acute hypoxic respiratory insufficiency secondary to acute systolic CHF exacerbation: Patient remains in PCU. Lasix 40 mg IV twice daily. Cycle troponin enzymes. Patient had last echo on 09/28/2019 during previous hospital stay and reported as severe segmental systolic dysfunction, with hypokinetic and akinetic LV, EF 30%. LA mildly enlarged. Valvular calcification present but no significant stenosis or regurgitation. 10/06: Seen by training program developer. Coreg titrated up to 6.25 mg twice daily. No chest pain overnight. Shortness of breath resolved. Troponin slightly elevated 0.12, 0.13, 0.14 plateaued. On medical management. 2. Acute systolic heart failure: Start on CHF core measures including Plavix, lisinopril Coreg and statin. Daily weight monitoring, strict intake and output and diuretic management as mentioned above. BNP about 4000. 3. COPD, not on home oxygen: Currently patient seems not in exacerbation. DuoNeb every 6 hourly as needed albuterol nebulization. Incentive spirometry and chest physiotherapy. 4. CKD stage III possible diabetic nephropathy along with diuretic: Patient creatinine was 1.54 during last admission about a week ago since patient is currently recovering, her baseline 1.08 in June 2019. Today 1.26. 5. CAD-continue Plavix, lisinopril, metoprolol. 6 Extensive peripheral vascular disease with recent left femoropopliteal bypass at [facility] approximately 1 month ago with open wound. Consult wound care nurse. Discussed with patient's vascular surgeon, Марина Mckee. She had aortobifemoral bypass in 1988 and had 4 surgeries in 3 days at that time. It seems she had femorofemoral bypass as well as left below-knee popliteal cutdown and left DP cutdown as well. On 01/15/2019, he did right femoral endarterectomy with profundoplasty, aVF limb thrombectomy with stent grafting within the limb and balloon angioplasty of left ABF limb. On 09/15/2019 she had a left femoral endarterectomy bovine patch angioplasty left femoral to peroneal bypass with in situ great saphenous vein. The wound was difficult to close therefore left open. She has appointment with him on 10/15/2019 at 10 AM. 7 chronic normocytic anemia-check CBC. Last A1c was 8.8 on 09/29/2019. Today hemoglobin 10. 8. Hypertension-stable, continue current regimen. 9. Hyperlipidemia: On pravastatin will check the lipid. 10. Type 2 diabetes [id number] with sliding scale insulin. 11. Obesity-encouraged diet and lifestyle modifications. DVT prophylaxis: On Eliquis 2.5 mg twice daily. At home, she is on Xarelto 2.5 mg twice daily Total time of the visit including total time spent in counseling or coordination of care, (more than 50% of the total time, spent in obtaining medical information from nurses and other ancillary care providers), discussion with job service consultant and outside vascular surgeon on phone, review of labs and imaging is 35 minutes Living will/advanced directive/end of life care: Patient does not have living will or advanced directive. After discussion of procedures involved with full code, DNR CC arrest and DNR CC, the patient opted for full code. Patient does want artificial life support including intubation, tube feed, ventilator and/chest compression, central venous catheter, vasopressor and DC shock if needed Total time spent in [id number] encounter in discussion of advanced directive 16 minutes. Inpatient E&M: 44381 [facility] Hosp L3
--- NOTE | 2019-10-07 15:27 | CASEMGMT ---
Social Work Met with patient to complete Palliative Care screening tool. Explained Palliative Care can assist in managing symptoms with CHF, COPD, SOB, and keep to out of the hospital and in the home as much as possible. Pt stated I just want to get back home, live a normal life and stay out of the hospital. Explained Palliative will assist with those goals. C.M. to arrange O2 at DC for pt as well. Pt agreed to referral to receive further information. Referral made to [facility] and faxed screening tool. GURINDER VelázquezW
[2019-10-07 17:26] LABS: Bedside Glucose 186 mg/dL (70-110)
[2019-10-07] MEDS: Gabapentin 300 MG Capsule PO (21:22)
[2019-10-07] MEDS: Pravastatin 80 MG Tablet PO (21:22)
[2019-10-07] MEDS: oxyCODONE 5 MG Tablet PO (21:28)
[2019-10-07 23:31] LABS: Bedside Glucose 186 mg/dL (70-110)
[2019-10-08] VITALS (10 sets, daily range): BP systolic 131–137; BP diastolic 43–70; PULSE 71–90; RESP 16–22; TEMP 36.8–37.1; O2SAT 84–97
[2019-10-08] MEDS: DiphenhydrAMINE 50 MG/ML Syringe 25 MG IV (01:00)
[2019-10-08] MEDS: 0.9% Saline Lock 10 ML Syringe IV ×2 (01:00→10:21)
[2019-10-08] MEDS: Insulin Lispro 100 UNIT/ML INSULN.PEN SC ×2 (06:42→12:44)
[2019-10-08 06:51] LABS: Bedside Glucose 163 mg/dL (70-110)
[2019-10-08] MEDS: Ipratropium/Albuterol Sulfate 3 ML AMPUL.NEB INHALATION ×2 (07:12→13:08)
--- NOTE | 2019-10-08 09:06 | PN.CARD_ITS ---
Subjectve: Patient doing much better today, no 24-hour events. Wounds healing nicely. No chest pain or angina. Surgical reports from [facility] reviewed this morning. Telemetry showed normal sinus rhythm. Objective: Vital Signs Temp Pulse Resp BP Pulse Ox 98.5 F 72 16 137/49 H 94 10/08/19 03:08 10/08/19 07:12 10/08/19 07:12 10/08/19 03:08 10/08/19 07:12 Oxygen Flow Rate (L/min) 2 Oxygen Delivery Method Nasal Cannula Weight: 200 lb 2.876 oz Body Mass Index (BMI) 33.5 Intake and Output for Last 24 Hours 10/06/19 10/07/19 10/08/19 23:59 23:59 23:59 Intake Total 180 / 180 582 / 582 140 / 140 Output Total 1175 / 1175 0 / 0 Balance 180 / 180 -593 / -593 140 / 140 General: Awake, Alert, Oriented x 3 HEENT: PERRL, EOMI, Sclera Non Icteric Neck: Supple, Good ROM, No Lymph Node Enlargement Lungs: Clear to auscultation Cardiovascular: Regular Rhythm, Normal S2, No Rubs, No Gallops Murmur Murmur: Grade 2/6, Crescendo-Decrescendo Vascular: No Carotid Bruits, Normal Femoral Pulses, Normal Radial Pulses, Normal Dorsalis Pedal Pulse, Normal Posterior Tibial Pulses Abdomen: Bowel Sounds Present, Soft, Non Tender, No HSM, No Organomegaly Extremities: No Cyanosis, No Clubbing, No edema Neurological: No Focal Motor or Sensory Deficit Rhythm: EKG: ECHO: Stress Test: Cardiac Cath: PCI: CT Surgery: Holter monitor: EPS: PPM: CXR: Chest CT Scan: Medical Necessity - Tobacco Use Smoking Status: Former smoker Tobacco Use: Cigarettes Assessment/Plan 1. Acute on chronic congestive heart failure: The patient has once again been readmitted for acute on chronic congestive heart failure with dyspnea, shortness of breath, tachypnea evidence on chest x-ray of bilateral pulmonary edema, and right pleural effusion. In addition she has a very small troponin release which was also present on her most recent admission around 09/29/2019. At that time she was referred up to the [facility] [place] for further evaluation but did not undergo a cardiac catheterization per the patient. Now that the patient is able to lay down flat, I recommend switching her to Lasix 40 mg p.o. twice daily going forward. She will continue her lisinopril. We will continue Coreg. She has Morrison heart classification 1 at this time and apparently has approached her dry weight. I reviewed her operative reports from 2018, balloon angioplasty report from 2019, and most recent lower extremity surgery from September 2019. Suffice it to say the patient has had extensive bilateral lower extremity bypass, and I would not recommend access attempts in her bypass grafts or femoral arteries. Patient required left brachial approach for balloon angioplasty of her SFA. I believe the only access would be either right or left radial approach. The patient has an excellent right radial artery pulsation. Recommend continuing baby aspirin, Plavix, and Eliquis. Once the patient is been medically tuned up, and her wound is healed, we will need to hold her Eliquis for period of 3 days time. I would recommend holding off on diagnostic coronary angiogram on this admission until her wound site in her left lower extremity has completely healed. In her Coreg, lisinopril. Recommend a 1500 cc fluid restriction as well. Do not believe she requires a repeat echocardiogram. Recommend we continue baby aspirin and Plavix for her coronary and peripheral vascular disease as well as recent non-STEMI. She appears to be tolerating dual antiplatelet therapy well despite her open wounds. Should she develop any bleeding, her Plavix may need to be held. 2. Hyperlipidemia: Recommend obtaining a fasting lipid profile. Her LDL should be less than 70. Continue pravastatin. 3. Peripheral vascular disease: I inspected the patient's wound site, which appears to be open and healing well with granulation tissue. Does not appear to be inflamed or infected. I do not believe she requires consultation with peripheral vascular surgery at this time. Continue low-dose Eliquis to maintain graft patency as well as DVT prophylaxis. 4. Thank you very much for the opportunity to participate in the cardiac care of your patient. Patient wishes to transfer cardiac care to Dr. Rock versus being seen again by Dr. Rivera. Patient had absolutely no problems with Dr. Rivera, but Dr. Rock takes care of her son, and she wishes to consolidate her care. Cardiac catheterization via radial approach will be planned for outpatient unless or until the patient has recurrent symptoms despite maximal medical therapy. Patient may be discharged home from a cardiac standpoint. Inpatient E&M: 41211 Subs Hosp L2
[2019-10-08] MEDS: Sertraline 100 MG Tablet PO (10:12)
[2019-10-08] MEDS: Allopurinol 100 MG Tablet 200 MG PO (10:12)
[2019-10-08] MEDS: Carvedilol 6.25 MG Tablet PO (10:13)
[2019-10-08] MEDS: Pantoprazole Sodium 40 MG Tablet PO (10:13)
[2019-10-08] MEDS: Lisinopril 20 MG Tablet PO (10:13)
[2019-10-08] MEDS: Clopidogrel Bisulfate 75 MG Tablet PO (10:13)
[2019-10-08] MEDS: amLODIPine 10 MG Tablet PO (10:13)
[2019-10-08] MEDS: Furosemide 40 MG/4 ML Vial IV (10:13)
[2019-10-08] MEDS: Juven (unflavored) Packet 1 PACKET PO (10:14)
[2019-10-08] MEDS: Vitamin B Comp W-C Capsule 1 CAP PO (10:14)
[2019-10-08] MEDS: APIXABAN 2.5 MG TABLET PO (10:14)
[2019-10-08] MEDS: Sulfacetamide Sodium 15ML OPTH.BTL 1 DRP EACH EYE ×2 (10:14→14:27)
--- NOTE | 2019-10-08 10:42 | DCINST_ITS ---
- Discharge Diagnoses Current Active Problems: Current Active and Chronic Problems PVD (peripheral vascular disease) (Chronic) History of hypertension (Chronic) CHF (congestive heart failure) (Acute) You will use the following diet at home:: Calorie/Carbohydrate Controlled (specify 1200, 1400, etc) - 1800 ADA diet, Cardiac Your food should be the consistency of: Regular Discharge Activity: May Not Drive Weight Bearing Status: Weight bearing as tolerated Call your doctor if you observe: Fever of 101 or Higher, Numbness or Tingling, Inability to urinate, Inability to have a bowel movement, Using more than one pad per hour, Shortness of breath, Dizziness, Fainting spells, Swelling in the ankles, Chest pain, Prolonged hiccoughing, Increased palpitations (irregular heartbeat), Calf discomfort Additional Instructions: Follow-up with Dr. Jane, vascular surgeon [facility] on 10/15/2019 at 10 AM. Allergies/Adverse Reactions: Allergies aspirin [ASA] Adverse Reaction (Verified 10/06/19 10:15) Nausea also rash codeine Adverse Reaction (Verified 10/06/19 10:15) Nausea Medications to take at Discharge Allopurinol 200 mg PO DAILY 06/27/19 B Complex with Vitamin C [B-Complex Plus Vitamin C] 1 tab PO DAILY 06/27/19 Gabapentin [Neurontin] 300 mg PO QHS 06/27/19 Pantoprazole Sodium [Protonix] 40 mg PO DAILY 06/27/19 Pravastatin [Pravachol] 80 mg PO QHS 06/27/19 Rivaroxaban [Xarelto] 2.5 mg PO BID 06/27/19 Sertraline HCl 100 mg PO DAILY 06/27/19 Tizanidine HCl 4 mg PO Q6H PRN PRN 06/27/19 Acetaminophen 500 - 1,000 mg PO Q6H PRN PRN 09/28/19 Albuterol Aerosols [Ventolin Aerosols] 2.5 mg INHALATION TID 09/28/19 Albuterol IH (ProAir) [Proair Hfa] 2 puff INHALATION Q4H PRN PRN 09/28/19 Amlodipine [Norvasc] 10 mg PO DAILY 09/28/19 Clopidogrel Bisulfate [Clopidogrel] 75 mg PO DAILY 09/28/19 Oxycodone [Oxyir] 5 mg PO Q6H PRN PRN 09/28/19 Sulfacetamide Sodium [Sulf-10] 1 drp OPHTHALMIC (EYE) 4X/DAY PRN 09/28/19 Carvedilol [Coreg (Beta Mariela)] 6.25 mg PO BID #60 tab 10/08/19 Glipizide 10 mg PO BID #0 10/08/19 Lisinopril [Zestril] 20 mg PO DAILY #30 tab 10/08/19 The following prescriptions were given: Carvedilol [Coreg (Beta Mariela)] 6.25 mg PO BID #60 tab Transmission Status: Pending to [id number] Lisinopril [Zestril] 20 mg PO DAILY #30 tab Transmission Status: Pending to [id number] Primary Care Physician: Milan Márquez MD [Primary Care Provider] - Please follow up with your Primary Care Physician in: in 2 weeks Test Results: Test results from this visit will be discussed in further detail at your follow- up appointment, if applicable. Please Follow Up With: Carlos Rock MD When: in 3-4 weeks
--- NOTE | 2019-10-08 10:44 | PCM.DC.SUM ---
Discharge Date and Diagnosis - Problem List Patient Problems: Active and Suspected Problems CHF (congestive heart failure) (Acute) Date of Admission: 10/06/19 Date of Discharge: 10/08/19 - Primary Discharge Diagnosis Acute Problems: Active Problems CHF (congestive heart failure) (Acute) - Secondary Discharge Diagnosis Chronic Problems: Chronic Problems CHF exacerbation (Chronic) PVD (peripheral vascular disease) (Chronic) Obesity (Chronic) Depression (Chronic) Diabetes (Chronic) HLD (hyperlipidemia) (Chronic) GERD (gastroesophageal reflux disease) (Chronic) COPD (chronic obstructive pulmonary disease) (Chronic) History of hypertension (Chronic) Anemia in chronic illness (Chronic) Hypertension (Chronic) Decubitus ulcer of sacral region, stage 1 (Chronic) Hospital Course and Treatment Consultations 10/06/19 13:15 Consult: Onc/Wound/director of retail merchandising Routine Comment: Reason for Consult:: left fem pop surgical wound open Operations: None Summary of Care Provided: The patient is a 69 year old F with complicated history as mentioned above, last hospital stay 09/27 to 09/29/2019 and was transferred to [facility] from where she got discharged yesterday and came to ER in the morning with sudden onset of shortness of breath. Chest x-ray image reviewed and suggest pulmonary vascular congestion. Twelve-lead EKG normal sinus rhythm with sinus arrhythmia at [address]-T changes 1. Acute hypoxic respiratory insufficiency secondary to acute systolic CHF exacerbation: Patient remains in PCU. Lasix 40 mg IV twice daily. Serial troponin enzymes were slightly elevated 0.12, 0.13 and 0.14 plateaued. Patient had last echo on 09/28/2019 during previous hospital stay and reported as severe segmental systolic dysfunction, with hypokinetic and akinetic LV, EF 30%. LA mildly enlarged. Valvular calcification present but no significant stenosis or regurgitation. Coreg uptitrated up to 6.25 mg twice daily. 2. Acute systolic heart failure: Start on CHF core measures including Plavix, lisinopril Coreg and statin. 3. COPD, requires oxygen on exertion: Bronchodilator, incentive spirometry and chest physiotherapy. Follow-up in pulmonary clinic for outpatient PFT. 4. CKD stage III possible diabetic nephropathy along with diuretic: Patient creatinine was 1.54 during last admission about a week ago since patient is currently recovering, her baseline 1.08 in June 2019. Today 1.26. 5. CAD-continue Plavix, lisinopril, metoprolol. 6 Extensive peripheral vascular disease with recent left femoropopliteal bypass at [facility] approximately 1 month ago with open wound. Consult wound care nurse. Discussed with patient's vascular surgeon, Марина Mckee. She had aortobifemoral bypass in 1988 and had 4 surgeries in 3 days at that time. It seems she had femorofemoral bypass as well as left below-knee popliteal cutdown and left DP cutdown as well. On 01/15/2019, he did right femoral endarterectomy with profundoplasty, aVF limb thrombectomy with stent grafting within the limb and balloon angioplasty of left ABF limb. On 09/15/2019 she had a left femoral endarterectomy bovine patch angioplasty left femoral to peroneal bypass with in situ great saphenous vein. The wound was difficult to close therefore left open. She has appointment with him on 10/15/2019 at 10 AM. 7 chronic normocytic anemia-check CBC. Last A1c was 8.8 on 09/29/2019. H&H between 9 to 10 g%. 8. Hypertension-stable, continue current regimen. 9. Hyperlipidemia: On pravastatin will check the lipid. 10. Type 2 diabetes baaxrodl-[id number] with sliding scale insulin. 11. Obesity-encouraged diet and lifestyle modifications. DVT prophylaxis: On Eliquis 2.5 mg twice daily. At home, she is on Xarelto 2.5 mg twice daily Discharge medication reconciliation done. Discharge follow-up instructions completed. Discharge process discussed with the patient and all questions were answered to patient's satisfaction. Home oxygen was done shows 92% at rest on room air, on ambulation 84% on room air and 93% on 2 L of oxygen. Patient is ambulatory in home and in the community and requires home oxygen with portability on exertion. Total time spent, exact 35 minutes on discharge meds reconciliation, examination, coordination of care with nurses and ancillary staff, review of imaging and blood test and discussion with the patient on follow-up instructions Living will/advanced directive/end of life care: Full code Patient Problems: Active and Suspected Problems CHF (congestive heart failure) (Acute) Objective: Seen and examined Patient does not have chest pain or shortness of breath. She still requires oxygen on exertion. Home oxygen was done shows 92% at rest on room air, on ambulation 84% on room air and 93% on 2 L of oxygen. Physical exam General: Alert, Oriented x3, Cooperative HEENT: Atraumatic, PERRLA, EOMI, Normocephalic Neck: Supple, No JVD, Negative Carotid Bruits Lungs: Clear to auscultation, No rhonchi, No wheeze, No rales, air entry bilateral lung bases diminished Cardiovascular: Regular rate, Regular Rhythm, Normal S1, Normal S2, No murmurs Abdomen: Bowel Sounds Present, Soft, Non Tender, Non-Distended Extremities: No edema, Capillary Refill Less than 3 Seconds Skin: Ulcer: Left femoropopliteal bypass open wound with secondary intention healing. Granulation tissue present. Left groin has suture which is intact. Musculoskeletal: No Tenderness to Palpation of Joints or Extremities, Arthritic Changes Neurological: Cranial nerves II-XII grossly intact Psych/Mental Status: Normal Affect, Appropriate - Physical Exam Vitals/I&O's: Vital Signs Temp Pulse Resp BP Pulse Ox 98.8 F 79 18 132/43 H 95 10/08/19 09:08 10/08/19 09:08 10/08/19 09:08 10/08/19 09:08 10/08/19 09:08 Oxygen Flow Rate (L/min) 2 Oxygen Delivery Method Room Air Weight: 200 lb 2.876 oz Body Mass Index (BMI) 33.5 Intake and Output for Last 24 Hours 10/06/19 10/07/19 10/08/19 23:59 23:59 23:59 Intake Total 180 / 180 582 / 582 140 / 140 Output Total 1175 / 1175 0 / 0 Balance 180 / 180 -593 / -593 140 / 140 Microbiology Past 72 Hours 10/06/19 14:45 Wound - Leg, Left Gram Stain - Final 10/06/19 14:45 Wound - Leg, Left Wound Culture - Preliminary No growth-Final to follow Laboratory Results 10/07/19 11:26: POC Glucose 195 H 10/07/19 16:36: POC Glucose 186 H 10/07/19 21:17: POC Glucose 186 H 10/08/19 06:39: POC Glucose 163 H Current Medications Acetaminophen (Tylenol) 650 mg PO Q6H PRN PRN PRN Reason: Pain Score 1-10/Temp > 100.7 F Albuterol Sulfate (Ventolin Aerosols) 2.5 mg INHALATION Q2H PRN PRN PRN Reason: SOB/Wheezing Albuterol/Ipratropium (Duoneb) 3 ml INHALATION Q6H.RT [facility] Last Admin: 10/08/19 07:12 Dose: 3 ml Documented by: Allopurinol (Zyloprim) 200 mg PO DAILY [facility] Last Admin: 10/08/19 10:12 Dose: 200 mg Documented by: Amlodipine Besylate (Norvasc) 10 mg PO DAILY [facility] Last Admin: 10/08/19 10:13 Dose: 10 mg Documented by: Apixaban (Eliquis) 2.5 mg PO BID [facility] Last Admin: 10/08/19 10:14 Dose: 2.5 mg Documented by: Aspirin (Aspirin, Baby) 81 mg PO DAILY@0800 [facility] Last Admin: 10/08/19 10:18 Dose: Not Given Documented by: Carvedilol (Coreg) 6.25 mg PO BID [facility] Last Admin: 10/08/19 10:13 Dose: 6.25 mg Documented by: Clopidogrel Bisulfate (Plavix) 75 mg PO DAILY [facility] Last Admin: 10/08/19 10:13 Dose: 75 mg Documented by: Dextrose (D50w Syringe) 0 gm IV X1 PRN; Protocol PRN Reason: Hypoglycemia Furosemide (Lasix) 40 mg IV BID@1000,1800 [facility] Last Admin: 10/08/19 10:13 Dose: 40 mg Documented by: Gabapentin (Neurontin) 300 mg PO QHS [facility] Last Admin: 10/07/19 21:22 Dose: 300 mg Documented by: Glucagon () 1 mg IM .X1 PRN PRN Reason: Hypoglycemia Insulin Human Lispro (Humalog Kwikpen (Bkc)) 0 unit SC ACHS [facility]; Protocol Last Admin: 10/08/19 06:42 Dose: 1 u Documented by: Lisinopril (Zestril) 20 mg PO DAILY [facility] Last Admin: 10/08/19 10:13 Dose: 20 mg Documented by: Morphine Sulfate () 2 mg IV Q3H PRN PRN PRN Reason: Pain Score 4-10/10 Multivitamins (Allbee W/C Caplet, Thera B Comp/C) [facility] Last Admin: 10/08/19 10:14 Dose: 1 capsule Documented by: Nitroglycerin (Nitrostat) 0.4 mg SUBLINGUAL Q5M PRN PRN Reason: CARDIAC/CHEST PAIN Oxycodone HCl (Oxyir) 5 mg PO Q6H PRN PRN PRN Reason: Pain Score 4-10/10 Last Admin: 10/07/19 21:28 Dose: 5 mg Documented by: Pantoprazole Sodium (Protonix) 40 mg PO DAILY [facility] Last Admin: 10/08/19 10:13 Dose: 40 mg Documented by: Pravastatin Sodium (Pravachol) 80 mg PO QHS [facility] Last Admin: 10/07/19 21:22 Dose: 80 mg Documented by: Senna/Docusate Sodium (Senokot-S, Vicky-Colace) 2 tablet PO BID PRN PRN PRN Reason: Constipation Sertraline HCl (Zoloft) 100 mg PO DAILY [facility] Last Admin: 10/08/19 10:12 Dose: 100 mg Documented by: Sodium Chloride () 10 - 40 ml IV UD PRN PRN Reason: SALINE FLUSH Last Admin: 10/08/19 10:21 Dose: 10 ml Documented by: Sulfacetamide Sodium (Sulf-10) 1 drop EACH EYE 4X/DAY [facility] Last Admin: 10/08/19 10:14 Dose: 1 drop Documented by: Tizanidine HCl (Zanaflex) 4 mg PO Q6H PRN PRN PRN Reason: SPASMS Discharge Activity: May Not Drive Weight Bearing Status: Weight bearing as tolerated Call your doctor if you observe: Fever of 101 or Higher, Numbness or Tingling, Inability to urinate, Inability to have a bowel movement, Using more than one pad per hour, Shortness of breath, Dizziness, Fainting spells, Swelling in the ankles, Chest pain, Prolonged hiccoughing, Increased palpitations (irregular heartbeat), Calf discomfort Home Medications: Medications to take at Discharge Allopurinol 200 mg PO DAILY 06/27/19 B Complex with Vitamin C [B-Complex Plus Vitamin C] 1 tab PO DAILY 06/27/19 Gabapentin [Neurontin] 300 mg PO QHS 06/27/19 Pantoprazole Sodium [Protonix] 40 mg PO DAILY 06/27/19 Pravastatin [Pravachol] 80 mg PO QHS 06/27/19 Rivaroxaban [Xarelto] 2.5 mg PO BID 06/27/19 Sertraline HCl 100 mg PO DAILY 06/27/19 Tizanidine HCl 4 mg PO Q6H PRN PRN 06/27/19 Acetaminophen 500 - 1,000 mg PO Q6H PRN PRN 09/28/19 Albuterol Aerosols [Ventolin Aerosols] 2.5 mg INHALATION TID 09/28/19 Albuterol IH (ProAir) [Proair Hfa] 2 puff INHALATION Q4H PRN PRN 09/28/19 Amlodipine [Norvasc] 10 mg PO DAILY 09/28/19 Clopidogrel Bisulfate [Clopidogrel] 75 mg PO DAILY 09/28/19 Oxycodone [Oxyir] 5 mg PO Q6H PRN PRN 09/28/19 Sulfacetamide Sodium [Sulf-10] 1 drp OPHTHALMIC (EYE) 4X/DAY PRN 09/28/19 Carvedilol [Coreg (Beta Mariela)] 6.25 mg PO BID #60 tab 10/08/19 Glipizide 10 mg PO BID #0 10/08/19 Lisinopril [Zestril] 20 mg PO DAILY #30 tab 10/08/19 Following Prescrptions Were Given to Patient: Carvedilol [Coreg (Beta Mariela)] 6.25 mg PO BID #60 tab Transmission Status: Received by [id number] Lisinopril [Zestril] 20 mg PO DAILY #30 tab Transmission Status: Received by [facility] Primary Care Physician: Milan Márquez MD [Primary Care Provider] - Please follow up with your Primary Care Physician in: in 2 weeks Please Follow Up With: Carlos Rock MD When: in 3-4 weeks Medical Necessity - Tobacco Use Smoking Status: Former smoker Tobacco Use: Cigarettes Meaningful Use Info Meaningful Use Diagnoses (Choose all that apply): CHF - CHF BRENDEN/ARB ordered at discharge?: Yes Documented LVEF (%): 30 Inpatient E&M: 58780 Disch Hosp
--- NOTE | 2019-10-08 11:05 | PHA.DC.COU ---
Pharmacy Services has performed discharge medication counseling for this patient. The patient was counseled on the following discharge medications and changes in medications for homegoing review. 1. COREG 2. LISINOPRIL - DOSE CHANGE The Reason for Use, instructions for use, and potential side effects were reviewed for all new medications. The patient's questions regarding all of their medications were answered. The patient demonstrated some understanding but would benefit from further education and reinforcement.
[2019-10-08 12:50] LABS: Bedside Glucose 214 mg/dL (70-110)
--- NOTE | 2019-10-08 18:15 | CASEMGMT ---
LOIS KRAUSE NOTE: 1215: Pt qualifies for Home O2 @ 2 L/M w/exertion. Script received from Dr Story and faxed to [facility], [place], along w/demographics, copy of insurance card, Face to Face documentation/discharge summary. Call placed to [facility] [place] and spoke w/L[place]. She was made aware pt is discharging today and is awaiting delivery of portable home O2. LOIS KRAUSE to room to discuss Home O2 and discharge planning. Pt aware she qualifies for Home O2 and that script along w/her insurance information has been faxed to [facility] [place]. She was made aware [facility] [place] will contact her re: any payment needed. Pt voices understanding. Pt denies any other needs/concerns w/discharging home. Pt made aware to ask for LOIS KRAUSE if she has any further questions/concerns/discharge needs. 1415: O2 has not arrived to pt's room yet. Call placed to [facility] [place] and message left w/answering service to inquire about expected time of delivery. They stated someone from [facility] [place] would call LOIS KRAUSE back. 1435: Call received back from [facility] [place]. They stated they have delivered the portable oxygen tank to pt's and he is bringing it to [facility] when he comes to pick pt up to take her home. LOIS KRAUSE to room. Pt states she has spoken with her and is aware of this. LOIS West, made aware and she will take take pt to [facility] exit location and meet pt's w/portable Home O2 tank and switch O2 over to her home O2 prior to her leaving for home. Patito ESPINOZA RN, CM
--- NOTE | 2019-10-11 15:05 | CASEMGMT ---
LOIS CM DC PHONE CALL DC DATE: 10/08/2019 DC DISPOSITION: Home DC DIAGNOSIS: CHF LACE/STRATA: 03/07 F/U APPTS MADE PRIOR TO DC: PCP in two weeks and Friday with Surgeon; Cardiology on 11/25/2019 PRESCRIPTIONS ACQUIRED BY PT: yes Pt states she did not have Lasix on her dc instructions, however physician said she should take. Pt did call her PCP and get dosing/medication. Pt has f/u appointments made, is weighing herself daily and states she is doing well. No concerns, and no care improvement suggestions were given. Susanne BAHENAN RN ACM
== END 2019-10-08 15:20 | disposition home or self-care (01) | DRG 292 ==
LOC: ED 11:48 → PCU 12:28
PROVIDERS: Admitting Provider Internal Medicine; Emergency Provider Emergency Medicine; PCP Family Medicine; Visit Provider Internal Medicine
DX: I50.23 Acute on chronic systolic (congestive) heart failure (principal); I13.0 Hypertensive heart and chronic kidney disease with heart failure and stage 1 through stage 4 chronic kidney disease, or unspecified chronic kidney disease; J90 Pleural effusion, not elsewhere classified; I73.9 Peripheral vascular disease, unspecified; E66.9 Obesity, unspecified; F32.9 Major depressive disorder, single episode, unspecified; E78.5 Hyperlipidemia, unspecified; K21.9 Gastro-esophageal reflux disease without esophagitis; L89.151 Pressure ulcer of sacral region, stage 1; J44.9 Chronic obstructive pulmonary disease, unspecified; E11.22 Type 2 diabetes mellitus with diabetic chronic kidney disease; N18.3 Chronic kidney disease, stage 3 (moderate); D63.8 Anemia in other chronic diseases classified elsewhere; E11.51 Type 2 diabetes mellitus with diabetic peripheral angiopathy without gangrene; F17.210 Nicotine dependence, cigarettes, uncomplicated; I25.10 Atherosclerotic heart disease of native coronary artery without angina pectoris; I25.2 Old myocardial infarction; Z79.01 Long term (current) use of anticoagulants; Z79.02 Long term (current) use of antithrombotics/antiplatelets; Z79.899 Other long term (current) drug therapy; Z90.710 Acquired absence of both cervix and uterus; Z85.41 Personal history of malignant neoplasm of cervix uteri; Z83.3 Family history of diabetes mellitus; Z68.34 Body mass index [BMI] 34.0-34.9, adult; Z51.5 Encounter for palliative care
CPT/HCPCS: 36415; 71045; 80048; 80061; 80076; 82962; 83735; 83880; 84443; 84484; 85025; 87070; 87205; 87640; 93005; 94640; 94667; 94668; 97162; 97166; 97802; 99251; 99285; A4216; G0463; J1940

== ENCOUNTER 2019-11-15 17:22 | Emergency (ER) | payer MEDICARE, SELFPAY ==
[2019-10-06 13:21] VITALS: BMI 33.5
[2019-11-15 17:22] VITALS: BP 76/29; BP 86/35; PULSE 59; PULSE 63; RESP 14; RESP 20; TEMP 36.6; O2SAT 96; O2SAT 99; BMI 30.2
[2019-11-15 17:33] VITALS: BP 65/23; PULSE 60; RESP 19; TEMP 36.6; O2SAT 100
[2019-11-15 17:57] VITALS: BP 131/44; PULSE 58; RESP 18; O2SAT 100
--- NOTE | 2019-11-15 18:05 | ED.VIS.GEN ---
History of Present Illness Chief Complaint: Weakness Informant: Patient Onset: Today Narrative: 69-year-old female presenting with generalized weakness. She states that it started earlier today. She fell to the ground and hit her head. She denies losing consciousness. She states that she was unable to get up on her own. Her tried for 5 hours to get her off the floor before calling EMS. She states prior to this she was fine. She is on Xarelto and Plavix from 2 different physicians. She denies any black or bloody stools. She denies any urinary symptoms. She does state that she has a couple of wounds one on her leg and one on her buttocks which have been being managed by her physician. Does state that she has had a lot of diarrhea recently. She states she has irritable bowels. Past Medical History - Allergies and Home Meds Allergies/Adverse Reactions: Allergies aspirin [ASA] Adverse Reaction (Verified 11/15/19 17:31) Nausea also rash codeine Adverse Reaction (Verified 11/15/19 17:31) Nausea Primary Care Physician: Milan Márquez MD [Primary Care Provider] - Prior records reviewed: Yes Surgical History: appendectomy, cholecystectomy, hysterectomy Lives: Spouse/ Significant Other Smoking Status: Former smoker Alcohol: None Drugs: None - Family History Maternal Family History: Reports: Cancer - cervical Paternal Family History: Reports: Diabetes Review of Systems General: Reports: - - Neurolysed weakness. Denies: Chills, Fever Eyes: Denies: Visual changes - bilaterally, Diplopia ENT: Denies: Rhinorrhea, Sore throat Cardiovascular: Denies: Chest pain, Palpitations Respiratory: Denies: Dyspnea, Cough, Dyspnea on exertion Musculoskeletal: Denies: Myalgias, Arthralgias Skin: Reports: Wounds Neurological: Denies: Headache Endocrine: Denies: Polyuria, Polydipsia Physical Exam Vital Signs/Narrative: Vital Signs Temp Pulse Resp BP Pulse Ox 11/15/19 17:57 58 L 18 131/44 H 100 11/15/19 17:33 97.9 F 60 19 H 65/23 L 100 11/15/19 17:22 97.9 F 59 L 20 H 86/35 L 96 General: Obese, No Acute Distress Head: Normocephalic, Atraumatic Eyes: Perrl, EOMI Cardiovascular: Regular rate, Regular rhythm Respiratory: No distress, CTA bilaterally Abdomen: Soft, Nontender Extremities: - - There is a wound on the left medial tibia which is ellipsoid in shape. It appears to be chronic and is ulcerated. There is no surrounding infection or erythema. Neurological: Alert, Oriented x3 Psychological: Normal affect Diagnostic/Tx/Re-eval - Medical Decision Making Clinical Impression(s) from Imaging Studies Brain CT 11/15/19 18:08 IMPRESSION: 3 mm hyperdensity of the deep right parietal lobe adjacent to the right lateral ventricle which may represent a tiny parenchymal hemorrhage. This was not present on the previous study of 10/25/2010. Chronic involutional changes. Electronically Signed: Raj Serra MD at 19:52 EDT , Service support , ADDENDUM: 11/15/192015 IMPRESSION: 3 mm hyperdensity of the deep right parietal lobe adjacent to the right lateral ventricle which may represent a tiny parenchymal hemorrhage. This was not present on the previous study of 10/25/2010. Chronic involutional changes. N.B. : The above information has been verbally conveyed by Raj Serra MD to DUNIA HENDRIX DO on 11/15/2019 20:09:59 (ET). Electronically Signed: Raj Serra MD at 19:52 EDT , Service support , Cervical Spine CT 11/15/19 18:11 IMPRESSION: There is a cortical step off of the base of the odontoid process seen on the lateral view only, appearing to represent motion artifact. Multilevel degenerative changes. Emphysematous changes of the upper lobes. Postsurgical changes of the right shoulder joint. There is no evidence of cervical fracture or subluxation. Electronically Signed: Raj Serra MD at 20:02 EDT , Service support , Chest X-Ray 11/15/19 18:25 IMPRESSION: Right perihilar peribronchial cuffing. I needs may be in the basis of bronchitis or bronchospasm disease. There has been interval resolution of prominent interstitial markings of the lungs seen on the previous study. Calcified plaques of the aortic arch. Degenerative changes of the thoracic spine and shoulder joints. Electronically Signed: Raj Serra MD at 18:56 EDT , Service support , Laboratory Data 11/15/19 11/15/19 11/15/19 19:00 19:45 19:45 WBC 10.4 RBC 3.05 L Hgb 8.9 L Hct 28.5 L MCV 93.4 MCH 29.2 MCHC 31.2 L RDW Std Deviation 57.7 H RDW Coeff of Geovanna 17.0 H Plt Count 155 MPV 9.8 Immature Gran % (Auto) 0.700 Neut % (Auto) 80.8 H Lymph % (Auto) 10.1 L [place] % (Auto) 8.2 Eos % (Auto) 0.1 Baso % (Auto) 0.1 Absolute Neuts (auto) 8.4 H Absolute Lymphs (auto) 1.05 Nucleated RBC % 0 PT 18.3 H INR 1.6 APTT 34.3 Sodium 134 L Potassium 3.9 Chloride 101 Carbon Dioxide 24.0 Anion Gap 9 BUN 76 H Creatinine 3.48 H Estim Creat Clear Calc 14.08 Est GFR (MDRD) Af Amer 17 L Est GFR (MDRD) Non-Af 14 L BUN/Creatinine Ratio 21.8 H Glucose 198 H Lactic Acid Calcium 8.5 Total Bilirubin 0.50 AST 31 ALT 17 Alkaline Phosphatase 81 Total Creatine Kinase Troponin I 0.024 Total Protein 7.5 Albumin 2.3 L Globulin 5.2 H Albumin/Globulin Ratio 0.4 L Urine Color Urine Clarity Urine pH Ur Specific [place] Urine Protein Urine Glucose (UA) Urine Ketones Urine Occult Blood Urine Nitrite Urine Bilirubin Urine Urobilinogen Ur Leukocyte Esterase Urine RBC Urine WBC Ur Squamous Epith Cells Urine Bacteria Urine Mucus 11/15/19 11/15/19 11/15/19 19:45 19:45 20:20 WBC RBC Hgb Hct MCV MCH MCHC RDW Std Deviation RDW Coeff of Geovanna Plt Count MPV Immature Gran % (Auto) Neut % (Auto) Lymph % (Auto) [place] % (Auto) Eos % (Auto) Baso % (Auto) Absolute Neuts (auto) Absolute Lymphs (auto) Nucleated RBC % PT INR APTT Sodium Potassium Chloride Carbon Dioxide Anion Gap BUN Creatinine Estim Creat Clear Calc Est GFR (MDRD) Af Amer Est GFR (MDRD) Non-Af BUN/Creatinine Ratio Glucose Lactic Acid 1.3 Calcium Total Bilirubin AST ALT Alkaline Phosphatase Total Creatine Kinase 184 Troponin I Total Protein Albumin Globulin Albumin/Globulin Ratio Urine Color Yellow Urine Clarity Cloudy Urine pH 7.0 Ur Specific [place] 1.010 Urine Protein Negative Urine Glucose (UA) Normal Urine Ketones 5 H Urine Occult Blood Negative Urine Nitrite Negative Urine Bilirubin Negative Urine Urobilinogen Normal Ur Leukocyte Esterase 25 H Urine RBC 10-25 SEEN Urine WBC 25-50 SEEN Ur Squamous Epith Cells 0 SEEN Urine Bacteria 2+ Urine Mucus 0 SEEN Presents with generalized weakness. She states that she fell on the floor and hit her head. Apparently she is on Plavix and Xarelto from 2 different physicians. She states she was unable to get up from the floor and her tried for 5 hours to get her off the floor before calling EMS. She states she feels generally weak but at baseline she is able to ambulate without a cane or a walker. Her initial lab work showed that she was acutely dehydrated. This is consistent with her recent diarrhea. She also has some slight anemia although her hemoglobin counts are fairly similar to her most recent hemoglobins. Chest x-ray was negative. CT cervical spine was negative. CT brain showed concern for a 3 mm hyperdensity of the deep right parietal lobe adjacent to the right lateral ventricle which may represent a tiny parenchymal hemorrhage. At this point I did discuss with the patient that she will be needed to be transferred to a trauma center. She was to go to [facility]. I spoke with the ED physician who accepted admission his name was Dr. Kearney. Patient was transported in stabilized condition. Impression: 1. intracranial hemorrhage 2. Anemia 3. Acute kidney injury 4. Diarrhea 5. Generalized weakness 6. Fall ED Disposition - Plan for ED Patient: Disposition: [facility] Referrals: Milan Márquez MD [Primary Care Provider] -
[2019-11-15 18:08] VITALS: BP 125/50; BP 125/52; PULSE 57; RESP 18; TEMP 36.8; O2SAT 96; O2SAT 99
--- NOTE | 2019-11-15 18:08 | CT_ITS ---
We are attempting to reach an attending provider to discuss findings. An addendum with communication details will be sent when the communication is complete. STUDY: CT BRAIN WITHOUT CONTRAST REASON FOR EXAM: Female, 69 years old. FALL-LAID ON FLOOR X 5 HRS,WEAKNESS,PT HAS MULT.OPEN WOUNDS -- HX:DIABETES,HTN RADIATION DOSAGE (If Supplied By Facility): CTDIvol = ( 44.99 ) mGy, DLP = ( 745.49 ) mGycm TECHNIQUE: Transaxial CT imaging of the brain was performed without administration of intravenous contrast material. Individualized dose optimization techniques were used for this CT. COMPARISON: Previous study of 10/25/2010 FINDINGS: Normal soft tissue structures. Normal calvarium. There is a 3 mm hyperdensity of the deep right parietal lobe adjacent to the right lateral ventricle. There are areas of decreased attenuation within the white matter tracts of the supratentorial brain, consistent with microvascular disease changes. Normal basal ganglia and thalami. Normal brainstem. Normal cerebellum. There are no findings of an acute ischemic infarction. Normal visualized paranasal sinuses. CT/Brain/Head without Contrast IMPRESSION: 3 mm hyperdensity of the deep right parietal lobe adjacent to the right lateral ventricle which may represent a tiny parenchymal hemorrhage. This was not present on the previous study of 10/25/2010. Chronic involutional changes. Electronically Signed: Raj Serra MD at 19:52 EDT , Service support ,
--- NOTE | 2019-11-15 18:10 | EKG12_ITS ---
Test Reason : DYSRHYTHMIA Blood Pressure : / mmHG Vent. Rate : 059 BPM Atrial Rate : 059 BPM P-R Int : 170 ms QRS Dur : 086 ms QT Int : 482 ms P-R-T Axes : 058 050 072 degrees QTc Int : 477 ms Sinus bradycardia Nonspecific T wave abnormality Prolonged QT Abnormal ECG Confirmed by PATRICIA IESENBERG, EMMETT ([id number]), electronic news gathering editor ELDER LERNER ([id number]) on 11/17/2019 1:16:25 PM Referred By: ALVINA Confirmed By:EMMETT GOMEZ MD
--- NOTE | 2019-11-15 18:11 | CT_ITS ---
STUDY: CT CERVICAL SPINE WITHOUT CONTRAST REASON FOR EXAM: Female, 69 years old. FALL-LAID ON FLOOR X 5 HRS,WEAKNESS,PT HAS MULT.OPEN WOUNDS -- HX:DIABETES,HTN RADIATION DOSAGE (If Supplied By Facility): CTDIvol = ( 25.10 ) mGy, DLP = ( 568.99 ) mGycm TECHNIQUE: High resolution transaxial imaging was performed without contrast material. Sagittal and coronal images were reconstructed. Individualized dose optimization techniques were used for this CT. COMPARISON: None FINDINGS: Normal craniovertebral junction. Normal anterior atlantoaxial articulation. There is a cortical step off of the base of the odontoid process seen on the lateral view only, appearing to represent motion artifact. There is straightening of the normal cervical lordosis. There is diffuse endplate spondylosis of the cervical spine. C2-3: Normal endplates. Normal disc height and morphology. Normal central canal and intervertebral neuroforamina. C3-4: There is moderately severe disc space narrowing. The facets are within normal limits. There is no central canal stenosis or foraminal narrowing. C4-5: There is mild disc space narrowing. The facets are within normal limits. There is no central canal stenosis or foraminal narrowing. C5-6: Disc spacing is within normal limits. The facets appear normal. There is mild foraminal narrowing on the left. There is no central canal stenosis. C6-7: The facets are within normal limits. Disc spacing is preserved. There is no central canal stenosis or foraminal narrowing. C7-T1: Normal endplates. Normal disc height and morphology. Normal central canal and intervertebral neuroforamina. There are emphysematous changes of the upper lobes. There are postsurgical changes of the right shoulder joint. CT/Spine Cervical without Contras IMPRESSION: There is a cortical step off of the base of the odontoid process seen on the lateral view only, appearing to represent motion artifact. Multilevel degenerative changes. Emphysematous changes of the upper lobes. Postsurgical changes of the right shoulder joint. There is no evidence of cervical fracture or subluxation. Electronically Signed: Raj Serra MD at 20:02 EDT , Service support ,
--- NOTE | 2019-11-15 18:25 | RAD_ITS ---
STUDY: X-RAY CHEST REASON FOR EXAM: Female, 69 years old. increased weakness. fall and laid on the floor for 5 hours today. multiple open wounds TECHNIQUE: Single AP portable view of the chest. COMPARISON: Prior study of 10/06/2019 FINDINGS: dialysis rn leads are present. There is right perihilar peribronchial cuffing. There is no demonstrated pleural abnormality. Normal size heart. Normal mediastinum and mignon. Normal visualized pulmonary arteries. There are calcified plaques of the aortic arch. There are diffuse degenerative changes of the visualized thoracic spine. There are degenerative changes of the shoulder joints. There is no demonstrated abnormality of the visualized soft tissue structures of the upper abdomen. RAD/Chest 1 View (Portable) IMPRESSION: Right perihilar peribronchial cuffing. I needs may be in the basis of bronchitis or bronchospasm disease. There has been interval resolution of prominent interstitial markings of the lungs seen on the previous study. Calcified plaques of the aortic arch. Degenerative changes of the thoracic spine and shoulder joints. Electronically Signed: Raj Serra MD at 18:56 EDT , Service support ,
[2019-11-15 19:37] LABS: ALB/GLOB Ratio 0.4 RATIO (0.9-2.4); AST(SGOT) 31 U/L (15-37); Alanine Aminotransfer ALT/SGPT 17 U/L (13-56); Albumin, Serum 2.3 g/dL (3.2-5.0); Alkaline Phosphatase 81 U/L (45-117); Anion Gap 9 (5-15); BUN 76 mg/dL (7-18); BUN/Creat Ratio 21.8 RATIO (10-20); Calcium,Total 8.5 mg/dL (8.5-10.1); Chloride 101 mmol/L (98-107); Creatinine, Serum 3.48 mg/dL (0.55-1.02); EST Glomerular Filtration Rate 14 mL/min (>60); Est Glom Filt Rate - Afr Amer 17 mL/min (>60); Estimated Creatinine Clearance 14.08 ml/min; Globulin 5.2 g/dL (2.2-4.2); Glucose 198 mg/dL (74-106); Potassium 3.9 mmol/L (3.5-5.1); Protein, Total 7.5 g/dL (6.4-8.2); Sodium Level 134 mmol/L (136-145)
[2019-11-15 20:04] LABS: Absolute Lymphocyte Count 1.05 X10^3/uL (0.83-4.51); Absolute Neutrophil Count 8.4 X10^3/uL (2.0-7.7); Basophil# 0.01 X10^3/uL; Basophil% 0.1 % (0-1); Eosinophil# 0.01 X10^3/uL; Eosinophils% 0.1 % (0-5); Hematocrit 28.5 % (37-47); Hemoglobin 8.9 g/dL (12.0-15.0); Lymphocyte # 1.05 X10^3/ul (4.0); Lymphocyte % 10.1 % (19-41); Mean Corp Hgb Conc 31.2 g/dL (32-36); Mean Corpuscular Hgb 29.2 pg (27.0-32.0); Mean Corpuscular Volume 93.4 fL (81-99); Mean Platelet Vol. 9.8 fl (6.2-12.0); Monocyte# 0.85 X10^3/uL; Monocyte% 8.2 % (0-10); NRBC Flagged by Analyzer 0 % (0-5); Neutrophil # 8.41 X10^3/uL (2.7-7.7); Neutrophil % 80.8 % (47-70); Platelet Count 155 K/mm3 (150-450); RBC Distribution Width SD 57.7 fl (35.1-43.9); Red Blood Count 3.05 M/mm3 (4.2-5.4); White Blood Count 10.4 K/mm3 (4.4-11.0)
[2019-11-15 20:23] VITALS: BP 109/74; PULSE 59; RESP 18
[2019-11-15 20:26] LABS: CPK Total, Creatine Kinase 184 U/L (26-192)
[2019-11-15] MEDS: 0.9% Normal Saline 1,000 ML 150 ML IV (20:26)
[2019-11-15 20:29] LABS: Lactic Acid 1.3 mmol/L (0.4-1.9)
[2019-11-15 20:31] LABS: Mucous, Urine 0 SEEN /hpf (<or=2+)
[2019-11-15 20:40] LABS: International Normalized Ratio 1.6; Partial Thromboplast Time 34.3 Seconds (24.1-36.2); Prothrombin Time (Protime)PT. 18.3 SECONDS (11.7-14.9)
--- NOTE | 2019-11-15 20:41 | CM.ED ---
Social Work Patient to be transferred due to brain bleed per Dr. Maher. This social insurance administrator meeting patient in room and inquiring if there is any family that needs to be notified. Patient states to have spoken with patient spouse. Patient voicing no questions at this time and states to be feeling fine. Jennifer Voss MSW, AMRITA
[2019-11-15 20:49] LABS: Color, Urine Yellow (Yellow); Glucose, Dipstick Normal (Normal); Ketone-Dipstick 5 mg/dl (Negative); Leukocyte Esterase-Dipstick 25 /ul (Negative); Nitrite-Dipstick Negative (Negative); Occult Blood-Urine Negative /ul (Negative); Protein-Dipstick Negative (Negative); Urine Bilirubin Dipstick Negative (Negative); Urine Clarity Cloudy (Clear); Urine Urobilinogen Normal (Normal)
[2019-11-15 20:57] VITALS: BP 109/64; RESP 18
[2019-11-15 20:59] LABS: Bacteria 2+ /hpf (None Seen); Red Blood Cells-Urine 10-25 SEEN /hpf (0-5); Squamous Epithelial Cells - UA 0 SEEN /hpf (5-10); White Blood Cells 25-50 SEEN /hpf (0-5)
== END 2019-11-15 20:58 | disposition short-term general hospital (02) ==
LOC: ED 18:48
PROVIDERS: Emergency Provider Student in an Organized Health Care Education/Training Program; PCP Family Medicine
DX: I62.9 Nontraumatic intracranial hemorrhage, unspecified (principal); D64.9 Anemia, unspecified; N17.9 Acute kidney failure, unspecified; R19.7 Diarrhea, unspecified; R53.1 Weakness; Z79.02 Long term (current) use of antithrombotics/antiplatelets; W18.30XA Fall on same level, unspecified, initial encounter; Y92.9 Unspecified place or not applicable; Y99.9 Unspecified external cause status; Z87.891 Personal history of nicotine dependence; Z79.01 Long term (current) use of anticoagulants; Z88.5 Allergy status to narcotic agent; Z88.6 Allergy status to analgesic agent; Z90.49 Acquired absence of other specified parts of digestive tract; Z90.710 Acquired absence of both cervix and uterus; I10 Essential (primary) hypertension; E11.9 Type 2 diabetes mellitus without complications
CPT/HCPCS: 51702; 70450; 71045; 72125; 80053; 81001; 82550; 83605; 84484; 85025; 85610; 85730; 93005; 99285; J7030; A4216

== ENCOUNTER → 2019-11-26 16:02 | Outpatient (CLI) | payer MEDICARE, SELFPAY ==
[2019-11-15 17:22] VITALS: BMI 30.2
[2019-11-26 17:03] LABS: Absolute Lymphocyte Count 2.21 X10^3/uL (0.83-4.51); Absolute Neutrophil Count 6.3 X10^3/uL (2.0-7.7); Basophil# 0.03 X10^3/uL; Basophil% 0.3 % (0-1); Eosinophil# 0.18 X10^3/uL; Eosinophils% 1.9 % (0-5); Hematocrit 27.7 % (37-47); Hemoglobin 8.1 g/dL (12.0-15.0); Lymphocyte # 2.21 X10^3/ul (4.0); Lymphocyte % 23.8 % (19-41); Mean Corp Hgb Conc 29.2 g/dL (32-36); Mean Corpuscular Hgb 28.2 pg (27.0-32.0); Mean Corpuscular Volume 96.5 fL (81-99); Monocyte# 0.49 X10^3/uL; Monocyte% 5.3 % (0-10); NRBC Flagged by Analyzer 0 % (0-5); Neutrophil % 67.8 % (47-70); Platelet Count 248 K/mm3 (150-450); RBC Distribution Width CV 18.1 % (11.6-14.6); RBC Distribution Width SD 62.6 fl (35.1-43.9); Red Blood Count 2.87 M/mm3 (4.2-5.4); White Blood Count 9.3 K/mm3 (4.4-11.0)
== END ==
PROVIDERS: Family Provider Family Medicine; PCP Family Medicine; Visit Provider Family Medicine
DX: D64.9 Anemia, unspecified (principal); N17.9 Acute kidney failure, unspecified
CPT/HCPCS: 36415; 85025

== ENCOUNTER → 2019-11-30 09:56 | Outpatient (CLI) | payer MEDICARE, SELFPAY ==
[2019-11-15 17:22] VITALS: BMI 30.2
[2019-11-30 12:18] LABS: Anion Gap 4 (5-15); BUN 30 mg/dL (7-18); BUN/Creat Ratio 24.4 RATIO (10-20); Calcium,Total 7.9 mg/dL (8.5-10.1); Chloride 107 mmol/L (98-107); Creatinine, Serum 1.23 mg/dL (0.55-1.02); EST Glomerular Filtration Rate 46 mL/min (>60); Est Glom Filt Rate - Afr Amer 55 mL/min (>60); Glucose 180 mg/dL (74-106); Potassium 4.2 mmol/L (3.5-5.1); Sodium Level 141 mmol/L (136-145)
== END ==
PROVIDERS: PCP Family Medicine; Visit Provider Family Medicine
DX: N17.9 Acute kidney failure, unspecified (principal); D64.9 Anemia, unspecified
CPT/HCPCS: 80048

== ENCOUNTER → 2020-01-03 13:13 | Outpatient (CLI) | payer MEDICARE, SELFPAY ==
[2019-12-03 09:21] VITALS: BMI 30.9
[2020-01-03 15:29] LABS: Absolute Lymphocyte Count 1.49 X10^3/uL (0.83-4.51); Absolute Neutrophil Count 5.3 X10^3/uL (2.0-7.7); Basophil# 0.03 X10^3/uL; Basophil% 0.4 % (0-1); Eosinophil# 0.26 X10^3/uL; Eosinophils% 3.5 % (0-5); Hematocrit 32.4 % (37-47); Hemoglobin 9.6 g/dL (12.0-15.0); Lymphocyte # 1.49 X10^3/ul (4.0); Lymphocyte % 19.8 % (19-41); Mean Corp Hgb Conc 29.6 g/dL (32-36); Mean Corpuscular Hgb 28.2 pg (27.0-32.0); Mean Corpuscular Volume 95.3 fL (81-99); Mean Platelet Vol. 10.6 fl (6.2-12.0); Monocyte# 0.38 X10^3/uL; Monocyte% 5.1 % (0-10); NRBC Flagged by Analyzer 0 % (0-5); Neutrophil # 5.33 X10^3/uL (2.7-7.7); Neutrophil % 70.9 % (47-70); Platelet Count 220 K/mm3 (150-450); RBC Distribution Width CV 17.2 % (11.6-14.6); RBC Distribution Width SD 59.4 fl (35.1-43.9); White Blood Count 7.5 K/mm3 (4.4-11.0)
[2020-01-03 15:52] LABS: Anion Gap 6 (5-15); BNP,B-Type NATRIURETIC PEPTIDE 225.1 pg/mL (0-100); BUN 26 mg/dL (7-18); BUN/Creat Ratio 16.8 RATIO (10-20); Calcium,Total 8.5 mg/dL (8.5-10.1); Chloride 105 mmol/L (98-107); Creatinine, Serum 1.55 mg/dL (0.55-1.02); EST Glomerular Filtration Rate 35 mL/min (>60); Est Glom Filt Rate - Afr Amer 42 mL/min (>60); Glucose 257 mg/dL (74-106); Iron 59 ug/dL (50-170); Potassium 4.5 mmol/L (3.5-5.1); Sodium Level 139 mmol/L (136-145)
== END ==
PROVIDERS: PCP Family Medicine; Visit Provider Family Medicine
DX: D64.9 Anemia, unspecified (principal); I50.9 Heart failure, unspecified; N17.9 Acute kidney failure, unspecified
CPT/HCPCS: 36415; 80048; 83540; 83880; 85025

== ENCOUNTER → 2020-02-11 08:51 | Outpatient (CLI) | payer MEDICARE, SELFPAY ==
[2019-12-03 09:21] VITALS: BMI 30.9
[2020-02-11 12:22] LABS: Absolute Lymphocyte Count 1.63 X10^3/uL (0.83-4.51); Absolute Neutrophil Count 3.6 X10^3/uL (2.0-7.7); Basophil# 0.03 X10^3/uL; Basophil% 0.5 % (0-1); Eosinophil# 0.34 X10^3/uL; Eosinophils% 5.6 % (0-5); Hematocrit 31.6 % (37-47); Hemoglobin 9.4 g/dL (12.0-15.0); Lymphocyte # 1.63 X10^3/ul (4.0); Lymphocyte % 26.9 % (19-41); Mean Corp Hgb Conc 29.7 g/dL (32-36); Mean Corpuscular Hgb 28.5 pg (27.0-32.0); Mean Corpuscular Volume 95.8 fL (81-99); Monocyte# 0.43 X10^3/uL; Monocyte% 7.1 % (0-10); NRBC Flagged by Analyzer 0 % (0-5); Neutrophil % 59.6 % (47-70); Platelet Count 137 K/mm3 (150-450); RBC Distribution Width CV 17.5 % (11.6-14.6); RBC Distribution Width SD 61.3 fl (35.1-43.9); White Blood Count 6.1 K/mm3 (4.4-11.0)
[2020-02-11 12:31] LABS: ALB/GLOB Ratio 0.8 RATIO (0.9-2.4); AST(SGOT) 18 U/L (15-37); Alanine Aminotransfer ALT/SGPT 17 U/L (13-56); Albumin, Serum 3.3 g/dL (3.2-5.0); Alkaline Phosphatase 87 U/L (45-117); Anion Gap 6 (5-15); BUN 65 mg/dL (7-18); BUN/Creat Ratio 28.9 RATIO (10-20); Calcium,Total 8.7 mg/dL (8.5-10.1); Chloride 108 mmol/L (98-107); Creatinine, Serum 2.25 mg/dL (0.55-1.02); EST Glomerular Filtration Rate 23 mL/min (>60); Est Glom Filt Rate - Afr Amer 28 mL/min (>60); Globulin 4.2 g/dL (2.2-4.2); Glucose 131 mg/dL (74-106); Iron 54 ug/dL (50-170); Protein, Total 7.5 g/dL (6.4-8.2); Sodium Level 139 mmol/L (136-145)
== END ==
PROVIDERS: PCP Family Medicine; Visit Provider Family Medicine
DX: I50.9 Heart failure, unspecified (principal); D64.9 Anemia, unspecified; N18.30 Chronic kidney disease, stage 3 unspecified
CPT/HCPCS: 36415; 80053; 83540; 85025

== ENCOUNTER → 2020-03-13 14:21 | Outpatient (CLI) | payer MEDICARE, SELFPAY ==
[2019-12-03 09:21] VITALS: BMI 30.9
[2020-03-13 17:12] LABS: Anion Gap 6 (5-15); BUN 63 mg/dL (7-18); Calcium,Total 8.6 mg/dL (8.5-10.1); Chloride 110 mmol/L (98-107); Creatinine, Serum 2.42 mg/dL (0.55-1.02); EST Glomerular Filtration Rate 21 mL/min (>60); Est Glom Filt Rate - Afr Amer 25 mL/min (>60); Glucose 173 mg/dL (74-106); Iron 34 ug/dL (50-170); Potassium 4.3 mmol/L (3.5-5.1); Sodium Level 142 mmol/L (136-145)
[2020-03-13 17:14] LABS: Red Blood Count 3.02 M/mm3 (4.2-5.4); White Blood Count 6.2 K/mm3 (4.4-11.0)
[2020-03-13 17:15] LABS: Basophil% 0.5 % (0-1); Eosinophils% 4.2 % (0-5); Hematocrit 29.3 % (37-47); Hemoglobin 8.8 g/dL (12.0-15.0); Lymphocyte % 26.8 % (19-41); Mean Corpuscular Hgb 29.1 pg (27.0-32.0); Mean Platelet Vol. 9.9 fl (6.2-12.0); Monocyte% 7.1 % (0-10); Neutrophil % 61.1 % (47-70); POSITIVE COUNT NO; POSITIVE DIFFERENTIAL NO; POSITIVE MORPHOLOGY NO; Platelet Count 131 K/mm3 (150-450); RBC Distribution Width SD 63.3 fl (35.1-43.9)
[2020-03-13 17:16] LABS: Absolute Lymphocyte Count 1.66 X10^3/uL (0.83-4.51); Absolute Neutrophil Count 3.8 X10^3/uL (2.0-7.7); Basophil# 0.03 X10^3/uL; Eosinophil# 0.26 X10^3/uL; Lymphocyte # 1.66 X10^3/ul (4.0); Monocyte# 0.44 X10^3/uL; Neutrophil # 3.79 X10^3/uL (2.7-7.7)
== END ==
PROVIDERS: PCP Family Medicine; Visit Provider Family Medicine
DX: N18.30 Chronic kidney disease, stage 3 unspecified (principal); D64.9 Anemia, unspecified
CPT/HCPCS: 36415; 80048; 83540; 85025

== ENCOUNTER → 2020-04-05 10:01 | Outpatient (CLI) | payer MEDICARE, SELFPAY ==
[2019-12-03 09:21] VITALS: BMI 30.9
[2020-03-23 10:01] VITALS: BMI 33.0
[2020-04-05 12:38] LABS: Absolute Lymphocyte Count 1.22 X10^3/uL (0.83-4.51); Absolute Neutrophil Count 6.6 X10^3/uL (2.0-7.7); Basophil# 0.03 X10^3/uL; Basophil% 0.4 % (0-1); Eosinophil# 0.09 X10^3/uL; Eosinophils% 1.1 % (0-5); Hemoglobin 9.6 g/dL (12.0-15.0); Lymphocyte # 1.22 X10^3/ul (4.0); Lymphocyte % 14.3 % (19-41); Mean Corpuscular Hgb 29.2 pg (27.0-32.0); Mean Corpuscular Volume 97.3 fL (81-99); Mean Platelet Vol. 10.5 fl (6.2-12.0); NRBC Flagged by Analyzer 0 % (0-5); Neutrophil # 6.58 X10^3/uL (2.7-7.7); Neutrophil % 76.8 % (47-70); Platelet Count 130 K/mm3 (150-450); RBC Distribution Width CV 17.5 % (11.6-14.6); RBC Distribution Width SD 63.1 fl (35.1-43.9); Red Blood Count 3.29 M/mm3 (4.2-5.4); White Blood Count 8.6 K/mm3 (4.4-11.0)
[2020-04-05 13:01] LABS: BNP,B-Type NATRIURETIC PEPTIDE 399.3 pg/mL (0-100)
[2020-04-05 13:13] LABS: Vitamin B12 400 pg/mL (211-911)
[2020-04-05 13:15] LABS: Anion Gap 7 (5-15); BUN 50 mg/dL (7-18); BUN/Creat Ratio 22.7 RATIO (10-20); Calcium,Total 8.6 mg/dL (8.5-10.1); Chloride 105 mmol/L (98-107); EST Glomerular Filtration Rate 23 mL/min (>60); Est Glom Filt Rate - Afr Amer 28 mL/min (>60); Ferritin 278 ng/mL (8-252); Glucose 133 mg/dL (74-106); Iron 28 ug/dL (50-170); Potassium 3.9 mmol/L (3.5-5.1); Sodium Level 138 mmol/L (136-145)
== END ==
PROVIDERS: PCP Family Medicine; Visit Provider Family Medicine
DX: D64.9 Anemia, unspecified (principal); I10 Essential (primary) hypertension; I42.9 Cardiomyopathy, unspecified; R06.00 Dyspnea, unspecified
CPT/HCPCS: 36415; 80048; 82607; 82728; 83540; 83880; 85025

== ENCOUNTER → 2020-04-11 16:30 | Outpatient (CLI) | payer MEDICARE, SELFPAY ==
[2020-03-23 10:01] VITALS: BMI 33.0
== END ==
PROVIDERS: PCP Family Medicine; Visit Provider Family Medicine
DX: R30.0 Dysuria (principal)
CPT/HCPCS: 87086; 87088; 87186

== ENCOUNTER 2020-04-20 22:49 | Inpatient (IN) | payer MEDICARE, SELFPAY ==
[2020-03-23 10:01] VITALS: BMI 33.0
[2020-04-20] VITALS (7 sets, daily range): BP systolic 133–144; BP diastolic 50–51; PULSE 76–92; RESP 16–30; TEMP 36.9; O2SAT 92–100; BMI 34.7
--- NOTE | 2020-04-20 23:08 | EKG12_ITS ---
Test Reason : SOB Blood Pressure : / mmHG Vent. Rate : 078 BPM Atrial Rate : 078 BPM P-R Int : 174 ms QRS Dur : 082 ms QT Int : 468 ms P-R-T Axes : 048 063 165 degrees QTc Int : 533 ms Normal sinus rhythm ST & T wave abnormality, consider inferior ischemia ST & T wave abnormality, consider anterolateral ischemia Prolonged QT Abnormal ECG Confirmed by ERASTO EISENBERG, MIREYA ([id number]), state editor ELDER LERNER ([id number]) on 04/26/2020 9:43:17 A M Referred By: KENTRELL Confirmed By:NARESH MAURER MD
--- NOTE | 2020-04-20 23:09 | ED.DCSUM_ITS ---
History of Present Illness Chief Complaint: Shortness of Breath Informant: Patient Narrative: Patient stated tonight she felt short of breath starting 2 hours ago. She was at home resting and started to have shortness of breath and some mild left-sided chest discomfort. She thought that might be GERD related. Called EMS that she could not get off the couch because she was so short of breath. She had a normal day per patient took care of her grandchildren. She has not had any coronavirus symptoms. Patient reports a history of CHF and is again 10 pounds in the last 10 days per patient. She does take a water pill. She has been taking it. Patient stated she does have history of COPD as well. She no longer smokes but smoked for many years. She does not have oxygen at home. She does not have breathing treatments at home as well. She occasionally has to use albuterol. Unknown last stress test. Has never had a heart cath. No stents in her heart. History of peripheral vascular disease. EMS placed a nonrebreather and brought him in for further treatment. She feels like she is wheezing. - Past Medical History (1) New onset of congestive heart failure Status: Chronic (2) Anemia in chronic illness Status: Chronic (3) COPD (chronic obstructive pulmonary disease) Status: Chronic (4) Decubitus ulcer of sacral region, stage 1 Status: Chronic (5) Depression Status: Chronic (6) Diabetes mellitus, type II Status: Chronic (7) Essential hypertension Status: Chronic (8) GERD (gastroesophageal reflux disease) Status: Chronic (9) History of femoropopliteal bypass Status: Chronic Comment: Per Марина Mckee: She had aortobifemoral bypass in 1988 and had 4 surgeries in 3 days at that time: femorofemoral bypass as well as left below-knee popliteal cutdown and left DP cutdown as well. On 01/15/2019, he did right femoral endarterectomy with profundoplasty, aVF limb thrombectomy with stent grafting within the limb and balloon angioplasty of left ABF limb. On 09/15/2019 she had a left femoral endarterectomy bovine patch angioplasty left femoral to peroneal bypass with in situ great saphenous vein. The wound was difficult to close therefore left open. (10) History of non-ST elevation myocardial infarction (NSTEMI) Status: Chronic (11) Hyperlipidemia Status: Chronic (12) Obesity Status: Chronic (13) PVD (peripheral vascular disease) Status: Chronic (14) Acute respiratory failure with hypoxia Status: Inactive (15) Severe sepsis with acute organ dysfunction Status: Inactive (16) Traumatic intracranial hemorrhage Status: Inactive Comment: Transferred from [facility] ER to [facility]: neurologists discovered it was a calcium deposit on CT, not a brain bleed. (17) Urinary tract infection Status: Inactive Past Medical History - Allergies and Home Meds Allergies/Adverse Reactions: Allergies aspirin [ASA] Adverse Reaction (Verified 04/20/20 23:00) Nausea also rash codeine Adverse Reaction (Verified 04/20/20 23:00) Nausea Prior records reviewed: Yes Past Medical History: - - See problem list Surgical History: appendectomy, cholecystectomy, hysterectomy Lives: Alone Smoking Status: Former smoker Alcohol: None Drugs: None - Family History Maternal Family History: Reports: Cancer - cervical Paternal Family History: Reports: Diabetes Review of Systems General: Denies: Chills, Fever, Sweats Eyes: Denies: Visual changes - bilaterally, Diplopia ENT: Denies: Rhinorrhea, Sore throat Cardiovascular: Reports: Chest pain - Resolved. Denies: Palpitations Respiratory: Reports: Dyspnea. Denies: Cough, Dyspnea on exertion Gastrointestinal: Denies: Abdominal pain, Nausea, Vomiting, Diarrhea, Melena, Hematochezia Genitourinary: Denies: Dysuria, Hematuria, Frequency Musculoskeletal: Denies: Back pain, Extremity Pain Skin: Denies: Rash, Wounds Neurological: Denies: Headache, Weakness, Numbness Physical Exam Vital Signs/Narrative: Vital Signs Temp Pulse Resp BP Pulse Ox 04/20/20 22:59 92 04/20/20 22:57 100 04/20/20 22:50 98.4 F 92 30 H 144/50 H 100 General: Well nourished, Well developed, No Acute Distress Head: Normocephalic, Atraumatic Eyes: Perrl, EOMI ENT: Moist mucous membranes, No rhinorrhea Neck: Supple, Nontender Cardiovascular: Regular rate, Regular rhythm, No murmurs Respiratory: Chest nontender, Wheezing, Diminished, Decreased Air Movement, - - Patient able to have a conversation with me and speak in sentences.. Negative for: Retractions Abdomen: Soft, Nontender, Nondistended, Normal bowel sounds Back: Nontender, Normal Inspection Extremities: Nontender, No edema Skin: Normal color, No rash Neurological: Alert, Oriented x3, Cranial nerves II-XII grossly intact, Normal Strength, Normal Sensation Psychological: Normal affect, Normal Mood Diagnostic/Tx/Re-eval - Medical Decision Making Lab work EKG chest x-ray obtained upon arrival. Patient given DuoNeb breathing treatment followed by 2 albuterol nebulizers. Given IV Lasix. Placed on oxygen. Was able to be weaned down to nasal cannula upon arrival. Patient's EKG shows sinus rhythm at a rate of 78 with nonspecific changes. She does have T wave inversion 1 and aVL V3 through V6. There may be some lateral ischemia. Patient is allergic to aspirin. She is no longer having chest pain or chest tightness. After breathing treatments her symptoms are back to baseline. She is no longer short of breath. She is back on her nasal cannula. Lab work shows baseline chronic kidney disease with elevated creatinine. Troponin is greater than 2. She has had this happen in September as well and had a non-STEMI. Was transferred to [facility] in [place]. They did not do a heart cath. She was told from a vascular standpoint that she may be too weak for heart cath. Patient is on Coumadin INR is almost 4 suprathe[address]. I spoke with Dr. Rivera information technology administrator. He did not recommend any further anticoagulation as she is on Plavix and Coumadin with a supratherapeutic level of Coumadin. Patient is pain-free resting comfortably back to her baseline. Chest x-ray my interpretation in the emergency department does show some pulmonary vascular congestion and she was given a dose of Lasix for this. I suspect this is CHF as she stated she has gained 10 pounds in the last 10 days. Cardiology felt that the patient be better served at [place] or [place] of the large tertiary center where she can have a heart cath. She is too high risk to have it done here. I discussed this with the patient and she declined this. She understands the risk of not having a heart cath including worsening heart attack and . She stated she would like to have medical management only. I spoke to cardiology about this as well. The patient will be admitted to our facility with cardiology consult for further management. - Critical Care Time Critical care time (excluding procedures): 30-74 minutes ED Disposition - Plan for ED Patient: Disposition: Acute [facility] Diagnosis: CHF exacerbation, Bronchospasm, Non-ST elevation myocardial infarction (NSTEMI), Chronic kidney disease
[2020-04-20] MEDS: Furosemide 40 MG/4 ML Vial IV (23:15)
[2020-04-20] MEDS: Ipratropium/Albuterol Sulfate 3 ML AMPUL.NEB INHALATION (23:19)
[2020-04-20 23:24] LABS: Absolute Lymphocyte Count 1.18 X10^3/uL (0.83-4.51); Absolute Neutrophil Count 8.5 X10^3/uL (2.0-7.7); Basophil# 0.05 X10^3/uL; Basophil% 0.5 % (0-1); Eosinophil# 0.17 X10^3/uL; Eosinophils% 1.6 % (0-5); Hematocrit 30.6 % (37-47); Lymphocyte # 1.18 X10^3/ul (4.0); Lymphocyte % 11.1 % (19-41); Mean Corp Hgb Conc 29.4 g/dL (32-36); Mean Corpuscular Hgb 28.9 pg (27.0-32.0); Mean Corpuscular Volume 98.4 fL (81-99); Mean Platelet Vol. 9.4 fl (6.2-12.0); Monocyte# 0.56 X10^3/uL; Monocyte% 5.3 % (0-10); NRBC Flagged by Analyzer 0 % (0-5); Neutrophil % 79.7 % (47-70); Platelet Count 171 K/mm3 (150-450); RBC Distribution Width CV 18.1 % (11.6-14.6); RBC Distribution Width SD 63.9 fl (35.1-43.9); Red Blood Count 3.11 M/mm3 (4.2-5.4); White Blood Count 10.7 K/mm3 (4.4-11.0)
--- NOTE | 2020-04-20 23:28 | RAD_ITS ---
STUDY: X-RAY CHEST REASON FOR EXAM: Female, 70 years old. SOB; pt has gained 10 lbs since 04/08. po 82 % when ems arrived. TECHNIQUE: Single AP portable view of the chest. COMPARISON: 11/15/2019. FINDINGS: There is diffuse hazy density and prominence of the bronchovascular markings in both lungs, most consistent with congestive failure and pulmonary edema. Additional atelectasis or infiltrate suggested in both lung bases, especially the left. Possible small left pleural effusion. Normal size heart. Normal mediastinum and mignon. Normal visualized pulmonary arteries. Normal visualized aortic arch and descending thoracic aorta. There are diffuse degenerative changes of the visualized thoracic spine. Normal visualized ribs, clavicles, and shoulders. There is no demonstrated abnormality of the visualized soft tissue structures of the upper abdomen. RAD/Chest 1 View (Portable) IMPRESSION: Mild congestion and interstitial edema. Additional atelectasis or infiltrate suggested in the lung bases. Electronically Signed: Markus Llamas MD at 23:44 EST , Service support ,
[2020-04-20 23:31] LABS: International Normalized Ratio 3.9; Prothrombin Time (Protime)PT. 37.7 SECONDS (11.7-14.9)
[2020-04-20 23:37] LABS: Anion Gap 8 (5-15); BUN 28 mg/dL (7-18); BUN/Creat Ratio 16.3 RATIO (10-20); Calcium,Total 7.8 mg/dL (8.5-10.1); Chloride 109 mmol/L (98-107); Creatinine, Serum 1.72 mg/dL (0.55-1.02); EST Glomerular Filtration Rate 31 mL/min (>60); Est Glom Filt Rate - Afr Amer 38 mL/min (>60); Estimated Creatinine Clearance 28.08 ml/min; Glucose 242 mg/dL (74-106); Potassium 3.4 mmol/L (3.5-5.1); Sodium Level 144 mmol/L (136-145)
[2020-04-20] MEDS: Albuterol 2.5 MG/3 ML VIAL.NEB. INHALATION ×2 (23:50)
[2020-04-21] VITALS (17 sets, daily range): BP systolic 93–142; BP diastolic 33–88; PULSE 61–97; RESP 18–21; TEMP 36.5–37.4; O2SAT 94–99; BMI 33.3
--- NOTE | 2020-04-21 00:30 | HP.PCM_ITS ---
Problem List (1) CHF exacerbation Status: Acute (2) Non-ST elevation myocardial infarction (NSTEMI) Status: Acute (3) Chronic kidney disease Status: Chronic (4) History of femoropopliteal bypass Status: Chronic Comment: Per Марина Mckee: She had aortobifemoral bypass in 1988 and had 4 surgeries in 3 days at that time: femorofemoral bypass as well as left below-knee popliteal cutdown and left DP cutdown as well. On 01/15/2019, he did right femoral endarterectomy with profundoplasty, aVF limb thrombectomy with stent grafting within the limb and balloon angioplasty of left ABF limb. On 09/15/2019 she had a left femoral endarterectomy bovine patch angioplasty left femoral to peroneal bypass with in situ great saphenous vein. The wound was difficult to close therefore left open. (5) New onset of congestive heart failure Status: Chronic (6) History of non-ST elevation myocardial infarction (NSTEMI) Status: Chronic (7) COPD (chronic obstructive pulmonary disease) Status: Chronic (8) Anemia in chronic illness Status: Chronic (9) Essential hypertension Status: Chronic (10) Hyperlipidemia Status: Chronic Qualifiers: Hyperlipidemia type: unspecified Qualified Code(s): E78.5 - Hyperlipidemia, unspecified (11) PVD (peripheral vascular disease) Status: Chronic (12) Diabetes mellitus, type II Status: Chronic (13) Obesity Status: Chronic (14) Depression Status: Chronic (15) GERD (gastroesophageal reflux disease) Status: Chronic (16) Decubitus ulcer of sacral region, stage 1 Status: Chronic (17) CHF (congestive heart failure) Status: Acute History of Present Illness Date of Admission: 04/21/20 Chief Complaint: sob The patient is a 70 year old F with a significant history of COPD; hypertension; diabetes mellitus; and peripheral vascular disease who presents to the emergency department with sudden onset shortness of breath that started while she was sitting in the couch watching TV. Reportedly when paramedics got to her home her oxygen saturation was 82%. Paramedics placed patient on nonrebreather mask. At the ED patient was transitioned to nasal cannula oxygen. She report that on 04/08/2020 her weight was 199 pounds and in the morning of 04/20/2020 her weight was 209 pounds. She has chronic two-pillow orthopnea and she sleeps on adjustable bed with head elevated. She denies paroxysmal nocturnal dyspnea. Before her shortness of breath started she had nausea and vomiting. She reports wheezes. She denies coughing. Past Medical History Past Medical History (Chronic Problems): Chronic Problems (Last Reviewed 04/21/20 @ 01:[address] Harlan Shah MD) Chronic kidney disease (Chronic) History of femoropopliteal bypass (Chronic) Per Марина Mckee: She had aortobifemoral bypass in 1988 and had 4 surgeries in 3 days at that time: femorofemoral bypass as well as left below- knee popliteal cutdown and left DP cutdown as well. On 01/15/2019, he did right femoral endarterectomy with profundoplasty, aVF limb thrombectomy with stent grafting within the limb and balloon angioplasty of left ABF limb. On 09/15/2019 she had a left femoral endarterectomy bovine patch angioplasty left femoral to peroneal bypass with in situ great saphenous vein. The wound was difficult to close therefore left open. New onset of congestive heart failure (Chronic) History of non-ST elevation myocardial infarction (NSTEMI) (Chronic) COPD (chronic obstructive pulmonary disease) (Chronic) Anemia in chronic illness (Chronic) Essential hypertension (Chronic) Hyperlipidemia (Chronic) PVD (peripheral vascular disease) (Chronic) Diabetes mellitus, type II (Chronic) Obesity (Chronic) Depression (Chronic) GERD (gastroesophageal reflux disease) (Chronic) Decubitus ulcer of sacral region, stage 1 (Chronic) Medical History: Medical History (Last Reviewed 04/21/20 @ 01:[address] Harlan Shah MD) Traumatic intracranial hemorrhage (Inactive) Onset Date: 11/15/19 S06.309A Transferred from [facility] ER to [facility]: neurologists discovered it was a calcium deposit on CT, not a brain bleed. New onset of congestive heart failure (Chronic) I50.9 History of non-ST elevation myocardial infarction (NSTEMI) (Chronic) I25.2 Acute respiratory failure with hypoxia (Inactive) J96.01 COPD (chronic obstructive pulmonary disease) (Chronic) J44.9 Anemia in chronic illness (Chronic) D63.8 Essential hypertension (Chronic) I10 Hyperlipidemia (Chronic) E78.5 PVD (peripheral vascular disease) (Chronic) I73.9 Diabetes mellitus, type II (Chronic) E11.9 Obesity (Chronic) E66.9 Depression (Chronic) F32.9 GERD (gastroesophageal reflux disease) (Chronic) K21.9 Decubitus ulcer of sacral region, stage 1 (Chronic) L89.151 NSTEMI (non-ST elevated myocardial infarction) (Resolved) I21.4 Allergies aspirin [ASA] Adverse Reaction (Verified 04/20/20 23:00) Nausea also rash codeine Adverse Reaction (Verified 04/20/20 23:00) Nausea Home Medications: Ambulatory Orders Medication Instructions Recorded Gabapentin [Neurontin] 300 mg PO BID 06/27/19 Pantoprazole Sodium [Protonix] 40 mg PO DAILY 06/27/19 Pravastatin [Pravachol] 80 mg PO QHS 06/27/19 Sertraline HCl 100 mg PO DAILY 06/27/19 Tizanidine HCl 4 mg PO Q6H PRN PRN 06/27/19 Albuterol Aerosols [Ventolin 2.5 mg INHALATION TID PRN 09/28/19 Aerosols] Clopidogrel Bisulfate [Clopidogrel] 75 mg PO DAILY 09/28/19 Sulfacetamide Sodium [Sulf-10] 1 drp OPHTHALMIC (EYE) 4X/DAY PRN 09/28/19 Carvedilol [Coreg (Beta Mariela)] 6.25 mg PO BID #60 tab 10/08/19 allopurinol 100 mg tablet 100 mg PO BID 12/03/19 ferrous sulfate 325 mg (65 mg 325 mg PO BID 12/03/19 iron) tablet glipizide 10 mg tablet 10 mg PO DAILY tab 12/03/19 ascorbate calcium (vitamin C) 500 500 mg PO DAILY 03/23/20 mg tablet furosemide 40 mg tablet 40 mg PO BID #180 tab 03/23/20 lisinopril 20 mg tablet 10 mg PO DAILY tab 03/23/20 mecobalamin (vitamin B12) 1,000 1,000 mcg PO DAILY 03/23/20 mcg chewable tablet warfarin 5 mg tablet 2.5 mg PO DAILY 03/23/20 Surgical History: Surgical History (Last Reviewed 04/21/20 @ 01:[address] Harlan Shah MD) History of femoropopliteal bypass (Chronic) Z98.890 Per Марина Mckee: She had aortobifemoral bypass in 1988 and had 4 surgeries in 3 days at that time: femorofemoral bypass as well as left below- knee popliteal cutdown and left DP cutdown as well. On 01/15/2019, he did right femoral endarterectomy with profundoplasty, aVF limb thrombectomy with stent grafting within the limb and balloon angioplasty of left ABF limb. On 09/15/2019 she had a left femoral endarterectomy bovine patch angioplasty left femoral to peroneal bypass with in situ great saphenous vein. The wound was difficult to close therefore left open. Surgical History: appendectomy, cholecystectomy, hysterectomy Psychiatric History: No pertinent psych hx [employer] History: cervical cancer Lives: Alone Smoking Status: Former smoker Tobacco Use: Cigarettes Alcohol: None Drugs: None - *Family History Maternal History Items: Cancer - cervical Paternal History Items: Diabetes Review of Systems Constitutional: Reports: Weight Change - Weight gain of 10 pounds in 12 days, Fatigue. Denies: Chills, Fever HEENT: Denies: Head Aches, Sinus Congestion, Sinus Drainage Cardiovascular: Reports: Chest Pain - Had chest pain which has now resolved, Orthopnea. Denies: Palpitations Respiratory: Reports: Shortness of breath at rest, Wheezing. Denies: Cough, Sputum production Gastrointestinal: Reports: Nausea, Vomiting. Denies: Abdominal Pain Genitourinary: Denies: Dysuria Musculoskeletal: Denies: Joint Pain, Joint Tenderness Skin: Denies: Rash, Wounds Neurological: Denies: Numbness, Tingling, Focal weakness Psychiatric: Denies: Anxiety, Depression, Homicidal Ideations, Suicidal Ideations Hematologic/ Lymphatic: Denies: Easy Bruising, Easy Bleeding VTE Information - Inpt Only VTE Present on Admission: No VTE Mechan Device Prophylaxis: None VTE Pharm Prophylaxis ordered?: No Reason prophylaxis not ordered:: Treatment Not Indicated - On Coumadin and supratherapeutic INR. Patient Problems: Active and Suspected Problems (Last Reviewed 04/21/20 @ 01:[address] Harlan Shah MD) CHF exacerbation (Acute) Non-ST elevation myocardial infarction (NSTEMI) (Acute) CHF (congestive heart failure) (Acute) - Physical Exam Vitals/I&O's: Vital Signs Temp Pulse Resp BP Pulse Ox 97.9 F 76 21 H 135/51 H 96 04/21/20 00:20 04/21/20 00:20 04/21/20 00:20 04/21/20 00:20 04/21/20 00:20 Oxygen Flow Rate (L/min) 3 Oxygen Delivery Method Nasal Cannula Weight: 97.6 kg Body Mass Index (BMI) 34.7 General: Alert, Oriented x3, Cooperative HEENT: Atraumatic, PERRLA, EOMI, Normocephalic Neck: Supple, No JVD, Negative Carotid Bruits Lungs: No rhonchi, No wheeze, No rales, Diminished Cardiovascular: Regular rate, Regular Rhythm, Normal S1, Normal S2, No murmurs Abdomen: Bowel Sounds Present, Soft, Non Tender Extremities: Capillary Refill Less than 3 Seconds, Edema - Mild on lateral side of left foot Skin: - - Mild erythema on left toes. Musculoskeletal: No Tenderness to Palpation of Joints or Extremities Neurological: Cranial nerves II-XII grossly intact Psych/Mental Status: Normal Affect, Appropriate Microbiology Past 72 Hours 04/20/20 23:20 Mucosa - Nose SARS-CoV-2 Antigen (Rapid) - Final Laboratory Results 04/20/20 23:00: WBC 10.7, RBC 3.11 L, Hgb 9.0 L, Hct 30.6 L, MCV 98.4, MCH 28.9, MCHC 29.4 L, RDW Std Deviation 63.9 H, RDW Coeff of Geovanna 18.1 H, Plt Count 171, MPV 9.4, Immature Gran % (Auto) 1.800 H, Neut % (Auto) 79.7 H, Lymph % (Auto) 11.1 L, [place] % (Auto) 5.3, Eos % (Auto) 1.6, Baso % (Auto) 0.5, Absolute Neuts (auto) 8.5 H, Absolute Lymphs (auto) 1.18, Nucleated RBC % 0 04/20/20 23:00: Sodium 144, Potassium 3.4 L, Chloride 109 H, Carbon Dioxide 27.0, Anion Gap 8, BUN 28 H, Creatinine 1.72 H, Estim Creat Clear Calc 28.08, Est GFR (MDRD) Af Amer 38 L, Est GFR (MDRD) Non-Af 31 L, BUN/Creatinine Ratio 16.3, Glucose 242 H, Calcium 7.8 L, Troponin I 2.330 H* 04/20/20 23:00: B-Natriuretic Peptide 1978.9 H 04/20/20 23:00: PT 37.7 H, INR 3.9 H* Assessment/Plan All Active Problems (Last Reviewed 04/21/20 @ 01:[address] Harlan Shah MD) CHF exacerbation (Acute) Non-ST elevation myocardial infarction (NSTEMI) (Acute) CHF (congestive heart failure) (Acute) NSTEMI (non-ST elevated myocardial infarction) (Resolved) The patient is a 70 year old F with a significant history of COPD; hypertension; diabetes mellitus; and peripheral vascular disease who presents emergency department with sudden onset shortness of breath that started while she was sitting in the couch watching TV; and with oxygen saturation of 82% when paramedics arrived 7 and requiring none rebreather mask; and was reports a 10 pounds weight gain in 12 days and also with wheezing, nausea and vomiting.. Acute hypoxemic respiratory insufficiency secondary to exacerbation of heart failure with reduced ejection fraction Place on monitored bed on progressive care unit. Weight on admission to the floor; and then daily Strict I&O's Impression of chest x-ray by radiologist: Mild congestive and interstitial edema. Additional atelectasis or infiltrate suggested in the lung bases CXR independently reviewed confirms. Actual chest x-ray image was independently interpreted. I agree radiologist interpretation. Emergency department labs reviewed BNP of 1,978.9. Old records reviewed shows that her current BNP way above her baseline. Diuresis with 40 mg IV twice daily. Received Lasix 40 mg IV at emergency department. Supplement potassium. Echocardiogram on 09/29/2019; estimated ejection fraction was 30%. Diffuse hypokinesis of left ventricle. Unable to estimate right ventricular systolic pressure due to technical difficult study. Mild valvular disease. Echocardiogram not ordered since last echocardiogram was 7 months ago Monitor electrolytes and renal function Trend blood pressure Coreg; and lisinopril continued. Titrate diuretics and heart failure/blood pressure medications with blood pressure. Fluid restriction of 1500 mls daily Cardiac calorie controlled diet ordered. Placed on supplemental at the ED; continued. Compazine as needed for nausea/vomiting ED doc discussed case with composition stone applicator. Cardiology consult. Non-ST elevation PR Troponin on presentation was 2.33. Trend troponin. On this presentation EKG showed T wave inversion in leads V4 to V5 and QTC prolongation of 533. Review of old EKG showed that on November 15, 2019 T wave inversions was not present and QTC was 477. Patient is allergic to aspirin. Plavix continued. Pravastatin continued ED doc report discussing case with cardiology who recommended patient be transferred to outside hospital for possible cath. However patient was adamant that she would not go to outside hospital also per discussion between ED doc and cardiology patient was admitted to our hospital. Per ED doc cardiology will follow on consult. Review of records show the patient was admitted to our hospital on 09/28/2019 and transferred to [facility] on 09/29/2019 for further management. Reportedly a cardiac cath was not done and medical therapy was recommended. Patient reported that the per her vascular surgeon she is high risk for cardiac cath. Also patient was admitted in our hospital on 10/06/2019 and discharged on 10/08/2019 for acute congestive heart failure and elevated troponin. Cardiology has been consulted. Prolonged QTc interval. QTC of 533 on presentation. Avoid QTC prolongation drugs. Check magnesium level. Diabetes mellitus with polyneuropathy Patient with elevated blood glucose on presentation Glipizide continued. Accu-Chek before every meal give correction scale insulin. Cardiac carb controlled diet ordered Neurontin continued Hypertension Blood pressure is stable Lisinopril and Coreg continue Trend blood pressure and adjust blood pressure medications. CKD stage III Stable Likely from hypertensive nephrosclerosis and diabetic nephropathy. DVT with supratherapeutic INR Reports bilateral DVT. Although she stated she had clots all over her body but not in the lungs. INR is elevated. Her last dose of Coumadin was taken on 04/19/2020. Coumadin not ordered on presentation. Daily INR. MD to dose Coumadin appropriately based on INR. COPD Patient with no cough. Reports wheezing at home. Stable. As needed albuterol ordered. Obstructive sleep apnea Reported at last home CPAP use is more than 1 year ago. Per patient she needs to follow-up for CPAP equipment. Patient is comfortable on nasal cannula oxygen. If patient appears uncomfortable consider CPAP/BiPAP. Depression/anxiety Sertraline continued Vitamin B12 deficiency Vitamin B12 continued Gout Allopurinol continued Chronic anemia stable Iron supplements continued DVT prophylaxis On Coumadin. MD to dose Coumadin. Inpatient E&M: 71169 Init Hosp L3
--- NOTE | 2020-04-21 04:47 | NURSING ---
At 02:50, this nurse was made aware of second critical troponin result. Dr. Claros was called to inform, but patient refuses cardiac treatment at this time.
[2020-04-21 05:40] LABS: Absolute Lymphocyte Count 1.42 X10^3/uL (0.83-4.51); Absolute Neutrophil Count 8.3 X10^3/uL (2.0-7.7); Basophil# 0.04 X10^3/uL; Basophil% 0.4 % (0-1); Eosinophil# 0.03 X10^3/uL; Eosinophils% 0.3 % (0-5); Hematocrit 27.9 % (37-47); Hemoglobin 8.6 g/dL (12.0-15.0); Lymphocyte # 1.42 X10^3/ul (4.0); Lymphocyte % 13.7 % (19-41); Mean Corp Hgb Conc 30.8 g/dL (32-36); Mean Corpuscular Volume 97.2 fL (81-99); Mean Platelet Vol. 11.2 fl (6.2-12.0); Monocyte# 0.56 X10^3/uL; Monocyte% 5.4 % (0-10); NRBC Flagged by Analyzer 0 % (0-5); Neutrophil # 8.27 X10^3/uL (2.7-7.7); Neutrophil % 79.7 % (47-70); Platelet Count 169 K/mm3 (150-450); RBC Distribution Width CV 17.7 % (11.6-14.6); RBC Distribution Width SD 62.2 fl (35.1-43.9); Red Blood Count 2.87 M/mm3 (4.2-5.4); White Blood Count 10.4 K/mm3 (4.4-11.0)
[2020-04-21 05:49] LABS: Prothrombin Time (Protime)PT. 40.1 SECONDS (11.7-14.9)
[2020-04-21 05:50] LABS: International Normalized Ratio 4.2
[2020-04-21 06:05] LABS: Anion Gap 7 (5-15); BUN 27 mg/dL (7-18); BUN/Creat Ratio 16.5 RATIO (10-20); Calcium,Total 7.6 mg/dL (8.5-10.1); Chloride 108 mmol/L (98-107); Creatinine, Serum 1.64 mg/dL (0.55-1.02); EST Glomerular Filtration Rate 33 mL/min (>60); Est Glom Filt Rate - Afr Amer 40 mL/min (>60); Estimated Creatinine Clearance 29.45 ml/min; Glucose 185 mg/dL (74-106); Magnesium 1.5 mg/dL (1.6-2.6); Potassium 3.3 mmol/L (3.5-5.1); Sodium Level 144 mmol/L (136-145)
[2020-04-21] MEDS: Nitroglycerin (INPATIENT USE) 0.4 MG TAB.SUBL SUBLINGUAL (06:14)
[2020-04-21 07:10] LABS: Bedside Glucose 168 mg/dL (70-110)
[2020-04-21] MEDS: 0.9% Saline Lock 10 ML Syringe IV ×2 (08:23→16:46)
[2020-04-21] MEDS: glipiZIDE 10 MG Tablet PO (08:24)
[2020-04-21] MEDS: Allopurinol 100 MG Tablet PO ×2 (08:24→21:03)
[2020-04-21] MEDS: Carvedilol 6.25 MG Tablet PO ×2 (08:24→21:03)
[2020-04-21] MEDS: Lisinopril 10 MG Tablet PO (08:24)
[2020-04-21] MEDS: Cyanocobalamin 500 MCG Tablet 1000 MCG PO (08:24)
[2020-04-21] MEDS: Gabapentin 300 MG Capsule PO ×2 (08:24→21:03)
[2020-04-21] MEDS: Ferrous Sulfate 325 MG Tablet PO ×2 (08:24→16:44)
[2020-04-21] MEDS: Clopidogrel Bisulfate 75 MG Tablet PO (08:24)
[2020-04-21] MEDS: Pantoprazole Sodium 40 MG Tablet PO (08:24)
[2020-04-21] MEDS: proCHLORPERazine 10 MG/2 ML Vial 5 MG IV (08:33)
[2020-04-21] MEDS: Furosemide 40 MG/4 ML Vial IV ×2 (08:37→16:44)
--- NOTE | 2020-04-21 08:45 | ECHOCS_ITS ---
Reason For Study: S/P SC Procedure This was a 2D Doppler, Color Flow transthoracic echocardiogram. Technically difficult due to patients body habitus. Contrast injection performed. The study was technically difficult. Contrast injection was performed. Exam performed portable in patient room. Left Ventricle Normal LV size. Severe segmental systolic dysfunction (see wall motion). The estimated ejection fraction is 25 %. There is evidence of diastolic dysfunction. Basal inferoseptal: Hypokinetic. Basal anteroseptal: Hypokinetic. Mid-Anterior : Akinetic. Mid-Lateral : Akinetic. Mid-Posterior: Akinetic. Mid-Inferior: Akinetic. Mid-inferoseptal : Akinetic. Mid-anteroseptal : Akinetic. Anterior [place] : Akinetic. Inferior [place] : Dyskinetic. Lateral [place] : Akinetic. Septal [place] : Akinetic. Right Ventricle Normal RV size. Normal systolic function. Atria The left atrium is moderately enlarged. Normal right atrium. No doppler evidence for ASD. Mitral Valve There is mild mitral annular calcification. Mild focal mitral valve calcification of the anterior leaflet. Trivial mitral valve insufficiency. Tricuspid Valve Normal tricuspid valve. Moderate (2+) eccentric tricuspid valve insufficiency. Right ventricular systolic pressure estimated to be 35 mmHg. Aortic Valve Trisinus/trileaflet aortic valve. Normal aortic valve. Pulmonic Valve The pulmonic valve is not well visualized. Trivial pulmonic valve insufficiency. Great Vessels The aortic root is not well visualized. Pericardium/Pleural No pericardial effusion. Medication Diluted definity 2ml given slow IV push to enhance endocardial definition. MMode/2D Measurements & Calculations LVIDd: 4.4 cm IVSd: 1.1 cm LA dimension: 4.4 cm LVIDs: 3.6 cm LVPWd: 1.1 cm RVDd: 3.5 cm FS: 17.1 % LAV(MOD-bp): 59.9 ml LA A4 area: 22.0 cm2 RA A4 area: 15.6 cm2 LAV(MOD-bp) Indexed: 29.7 ml/m2 LAV(MOD-sp2): 48.1 ml LAV(MOD-sp4): 69.2 ml Time Measurements MV dec time: 0.21 sec Doppler Measurements & Calculations MV E max romel: 70.6 cm/sec Lat Peak E' Romel: 5.8 cm/sec Med Peak E' Romel: 5.0 cm/sec MV A max romel: 106.9 cm/sec E/E' lat: 12.2 E/E' med: 14.2 MV E/A: 0.66 MV V2 max: 91.2 cm/sec MV P1/2t max romel: 91.9 cm/sec Ao V2 max: 102.9 cm/sec MV max P.3 mmHg MV P1/2t: 107.3 msec Ao max P.2 mmHg MV V2 mean: 58.1 cm/sec MV dec slope: 250.9 cm/sec2 MV mean P.6 mmHg MV V2 VTI: 28.5 cm MVA(P1/2t): 2.1 cm2 LV V1 max: 90.8 cm/sec PA V2 max: 108.8 cm/sec TR max romel: 280.7 cm/sec LV V1 max P.3 mmHg TR max P.5 mmHg Interpretation Summary The study was technically difficult. Contrast injection was performed. Severe segmental systolic dysfunction (see wall motion). The estimated ejection fraction is 25 %. The left atrium is moderately enlarged. There is mild mitral annular calcification. Mild focal mitral valve calcification of the anterior leaflet. Trivial mitral valve insufficiency. Moderate (2+) eccentric tricuspid valve insufficiency. Trivial pulmonic valve insufficiency. Right ventricular systolic pressure estimated to be 35 mmHg. There is evidence of diastolic dysfunction. Ordering Physician: Wagner Rivera Referring Physician: Milan Márquez Performed By: Dat Valenzuela RCS
--- NOTE | 2020-04-21 08:59 | PCM.CONS.C ---
Problem List (1) Non-ST elevation myocardial infarction (NSTEMI) Status: Acute (2) Cardiomyopathy Status: Acute (3) CHF exacerbation Status: Acute (4) Hyperlipidemia Status: Chronic Qualifiers: Hyperlipidemia type: unspecified Qualified Code(s): E78.5 - Hyperlipidemia, unspecified (5) Essential hypertension Status: Chronic (6) Diabetes mellitus, type II Status: Chronic (7) PVD (peripheral vascular disease) Status: Chronic (8) Chronic kidney disease Status: Chronic (9) Anemia in chronic illness Status: Chronic (10) COPD (chronic obstructive pulmonary disease) Status: Chronic (11) Obesity Status: Chronic Reason for Consult Date of Consultation: 04/21/20 History of Present Illness: The patient is a 70 year old old white female with a history of underlying cardiovascular disease with non-ST segment elevation SC, cardiomyopathy-presumed ischemic mediated, chronic systolic CHF, hyperlipidemia, hypertension, diabetes mellitus, extensive peripheral vascular disease status post peripheral vascular surgery, chronic renal insufficiency, anemia thought related to chronic illness, COPD, superimposed on obesity, who presents for evaluation of an acute non-ST segment elevation SC and acute on chronic systolic mediated CHF. She states that she noted over the last week she had been gaining weight-approximately 10 pounds. She notes yesterday she was experiencing left-sided chest discomfort and left upper extremity discomfort. During this time she had worsening shortness of breath/dyspnea. She did not complain of nausea, emesis, or diaphoresis. There was no near syncope or syncope. She subsequently elected to have herself brought to the emergency department for further evaluation and care. There according to the emergency [facility] staff she was found to have evidence of an acute non-ST segment elevation SC, acute on chronic systolic mediated CHF, and hypoxemia. She required treatment with O2 support and IV Lasix. She was reported as having improvement in her overall O2 saturation. Her case was reviewed at that time. She had previously been at [facility] in the past for similar type of events. Based upon her extensive peripheral vascular disease, superimposed upon her chronic renal insufficiency, her anemia, and her known cardiovascular disease, it had been recommended in the past that she be transferred to a tertiary care center for evaluation with diagnostic cardiac catheterization. She was transferred to [facility], however, at that institution, status post review of her peripheral vascular disease history, she was treated medically. She had subsequently been evaluated by Dr. Rock of [facility] and outpatient cardiovascular follow-up and was continued on medical management. Based upon her recurrent events she was offered transfer to a tertiary care center by the emergency department staff for further cardiovascular evaluation. She declined at the time. She was subsequently placed in the PCU for continued medical management. At the present time she states she has had waxing and waning chest discomfort. She has required nitroglycerin sublingual use. She states she is still chronically short of breath. She has been followed with troponin I levels. I have increased with her last level being 17.4. Additional levels are pending. Her ECG demonstrated sinus rhythm with T wave abnormalities potentially compatible with myocardial ischemia in the anterior, lateral, and inferior distributions. Chest x-ray was performed reported as having findings compatible with CHF. A COVID-19 test was reported as negative. Past Medical History Allergies/Adverse Reactions: Allergies aspirin [ASA] Adverse Reaction (Verified 04/20/20 23:00) Nausea also rash codeine Adverse Reaction (Verified 04/20/20 23:00) Nausea Home Medications: Ambulatory Orders Medication Instructions Recorded Gabapentin [Neurontin] 300 mg PO BID 06/27/19 Pantoprazole Sodium [Protonix] 40 mg PO DAILY 06/27/19 Pravastatin [Pravachol] 80 mg PO QHS 06/27/19 Sertraline HCl 100 mg PO DAILY 06/27/19 Tizanidine HCl 4 mg PO Q6H PRN PRN 06/27/19 Albuterol Aerosols [Ventolin 2.5 mg INHALATION TID PRN 09/28/19 Aerosols] Clopidogrel Bisulfate [Clopidogrel] 75 mg PO DAILY 09/28/19 Sulfacetamide Sodium [Sulf-10] 1 drp OPHTHALMIC (EYE) 4X/DAY PRN 09/28/19 Carvedilol [Coreg (Beta Mariela)] 6.25 mg PO BID #60 tab 10/08/19 allopurinol 100 mg tablet 100 mg PO BID 12/03/19 ferrous sulfate 325 mg (65 mg 325 mg PO BID 12/03/19 iron) tablet glipizide 10 mg tablet 10 mg PO DAILY tab 12/03/19 ascorbate calcium (vitamin C) 500 500 mg PO DAILY 03/23/20 mg tablet furosemide 40 mg tablet 40 mg PO BID #180 tab 03/23/20 lisinopril 20 mg tablet 10 mg PO DAILY tab 03/23/20 mecobalamin (vitamin B12) 1,000 1,000 mcg PO DAILY 03/23/20 mcg chewable tablet warfarin 5 mg tablet 2.5 mg PO DAILY 03/23/20 Past Medical History (Chronic Problems): Chronic Problems (Last Reviewed 04/21/20 @ 01:[address] Harlan Shah MD) Chronic kidney disease (Chronic) History of femoropopliteal bypass (Chronic) Per Марина Mckee: She had aortobifemoral bypass in 1988 and had 4 surgeries in 3 days at that time: femorofemoral bypass as well as left below-knee popliteal cutdown and left DP cutdown as well. On 01/15/2019, he did right femoral endarterectomy with profundoplasty, aVF limb thrombectomy with stent grafting within the limb and balloon angioplasty of left ABF limb. On 09/15/2019 she had a left femoral endarterectomy bovine patch angioplasty left femoral to peroneal bypass with in situ great saphenous vein. The wound was difficult to close therefore left open. New onset of congestive heart failure (Chronic) History of non-ST elevation myocardial infarction (NSTEMI) (Chronic) COPD (chronic obstructive pulmonary disease) (Chronic) Anemia in chronic illness (Chronic) Essential hypertension (Chronic) Hyperlipidemia (Chronic) PVD (peripheral vascular disease) (Chronic) Diabetes mellitus, type II (Chronic) Obesity (Chronic) Depression (Chronic) GERD (gastroesophageal reflux disease) (Chronic) Decubitus ulcer of sacral region, stage 1 (Chronic) Surgical History: appendectomy, cholecystectomy, hysterectomy Psychiatric History: No pertinent psych hx [employer] History: cervical cancer - *Family History Maternal History Items: Cancer - cervical Paternal History Items: Diabetes Lives: Alone Smoking Status: Former smoker Tobacco Use: Cigarettes Alcohol: None Drugs: None Review of Systems - Review of Systems General: Denies: Fever, Night Sweats, Fatigue Cardiovascular: Reports: Chest Discomfort, Chest Discomfort at Rest, Shortness of Breath, Shortness of Breath at Rest. Denies: Orthopnea, PND, Peripheral Edema, Palpitations, Lightheadedness, Dizziness, Near Syncope, Syncope Respiratory: Reports: Shortness of Breath. Denies: Cough, Sputum Production, Hemoptysis Gastrointestinal: Denies: Hematemesis, Hematochezia, Melena Genitourinary: Denies: Dysuria, Hematuria Skin: Denies: Rash Subjectve: This is a pleasant older than stated age appearing 70-year-old obese white female who appears to be resting reasonably comfortably at the moment. Objective: Vital Signs Temp Pulse Resp BP Pulse Ox 97.7 F L 80 18 127/53 H 99 04/21/20 07:30 04/21/20 07:30 04/21/20 07:30 04/21/20 07:30 04/21/20 07:30 Oxygen Flow Rate (L/min) 3.5 Oxygen Delivery Method Nasal Cannula Weight: 209 lb 10.554 oz Body Mass Index (BMI) 33.3 Intake and Output for Last 24 Hours 04/19/20 04/20/20 04/21/20 23:59 23:59 23:59 Output Total 400 / 400 Balance -400 / -400 General: Awake, Alert, Oriented x 3, Cooperative, Obese HEENT: Atraumatic, Normocephalic, PERRL, EOMI, Sclera Non Icteric Neck: Supple, Good ROM, No JVD Lungs: Rales - Suman Bases Cardiovascular: Regular Rhythm, Normal S1, Normal S2 Abdomen: Bowel Sounds Present, Soft Extremities: Trace RLE Edema, Trace LLE Edema Psych/Mental Status: Appropriate 04/20/20 23:00: WBC 10.7, RBC 3.11 L, Hgb 9.0 L, Hct 30.6 L, MCV 98.4, MCH 28.9, MCHC 29.4 L, Plt Count 171, MPV 9.4, Immature Gran % (Auto) 1.800 H, Neut % (Auto) 79.7 H, Lymph % (Auto) 11.1 L, [place] % (Auto) 5.3, Eos % (Auto) 1.6, Baso % (Auto) 0.5, Absolute Neuts (auto) 8.5 H, Nucleated RBC % 0 04/20/20 23:00: Sodium 144, Potassium 3.4 L, Chloride 109 H, Carbon Dioxide 27.0, Anion Gap 8, BUN 28 H, Creatinine 1.72 H, Est GFR (MDRD) Af Amer 38 L, Est GFR (MDRD) Non-Af 31 L, BUN/Creatinine Ratio 16.3, Glucose 242 H, Calcium 7.8 L, Troponin I 2.330 H* 04/20/20 23:00: B-Natriuretic Peptide 1978.9 H 04/20/20 23:00: PT 37.7 H, INR 3.9 H* 04/21/20 02:10: Troponin I 9.380 H* 04/21/20 05:26: WBC 10.4, RBC 2.87 L, Hgb 8.6 L, Hct 27.9 L, MCV 97.2, MCH 30.0, MCHC 30.8 L, Plt Count 169, MPV 11.2, Immature Gran % (Auto) 0.500, Neut % (Auto) 79.7 H, Lymph % (Auto) 13.7 L, [place] % (Auto) 5.4, Eos % (Auto) 0.3, Baso % (Auto) 0.4, Absolute Neuts (auto) 8.3 H, Nucleated RBC % 0 04/21/20 05:26: PT 40.1 H, INR 4.2 H* 04/21/20 05:26: Sodium 144, Potassium 3.3 L, Chloride 108 H, Carbon Dioxide 29.0, Anion Gap 7, BUN 27 H, Creatinine 1.64 H, Est GFR (MDRD) Af Amer 40 L, Est GFR (MDRD) Non-Af 33 L, BUN/Creatinine Ratio 16.5, Glucose 185 H, Calcium 7.6 L, Magnesium 1.5 L 04/21/20 05:26: Troponin I 17.400 H* Rhythm: Sinus rhythm EKG: As noted above ECHO: 09-29-2019 Interpretation Summary The study was technically difficult. Contrast injection was performed. Moderately severe segmental systolic dysfunction (see wall motion). The estimated ejection fraction is 30 %. The left atrium is mildly enlarged. There is mild mitral annular calcification. Extension of the mitral annular calcification onto the base of the posterior mitral valve leaflet. Trivial mitral valve insufficiency. Trivial tricuspid valve insufficiency. Mild focal aortic valve calcification. Unable to estimate RV systolic pressure/pulmonary artery pressure due to technically difficult study. Transmitral diastolic flow velocities suggest diastolic dysfunction (pseudonormal pattern). CXR: As noted above: Please see official report Assessment/Plan 1. Acute non-ST segment elevation SC The patient presents with a recurrent acute non-ST segment elevation SC. At the present time she is being monitored. Her cardiac enzymes and her ECG will be followed. An echocardiogram can be requested to reevaluate her left ventricular wall motion and systolic function. She is continuing medical therapy. This has included antiplatelet therapy with clopidogrel/Plavix, she will be placed on nitrates, she is already on beta-blockers, she is already on afterload reducing agents and lipid-lowering agents. She has also been on chronic anticoagulant therapy. Ideally she would be considered for further evaluation with diagnostic cardiac catheterization. She would be considered at high risk for this procedure based upon her cardiovascular/noncardiovascular findings including her extensive peripheral vascular disease, her chronic renal insufficiency, her anemia, etc. In the past she has been recommended to have such a procedure performed at a tertiary care center. She was offered transfer last night to a tertiary care center for such evaluation. She declined. She wanted to remain at [facility] for continued medical management. She was asked to consider allowing herself to be transferred to a tertiary care center to have such a procedure performed. She states she will have to consider, with her family, how she wants to pursue her cardiovascular care. 2. Ischemic mediated cardiomyopathy She does have an underlying cardiomyopathy. It is believed to be ischemic mediated. She has had chronic systolic mediated CHF. She presents now with acute on chronic systolic mediated CHF. She will continue medical therapy. This will include diuretic therapy. She will have a follow-up echocardiogram to reassess her left ventricular wall motion and systolic function. 3. Acute on chronic systolic mediated CHF And she does appear to have acute on chronic systolic mediated CHF. She will continue medical therapy. This is included diuretic therapy as well as her other agents such as nitrates, beta-blockers as deemed appropriate, and afterload reducing agents. She will a follow-up echocardiogram to reassess her left ventricular wall motion and systolic function. 4. Hyperlipidemia She will continue medical management. 5. Hypertension Her blood pressure will need to be followed. Her medicines may need to be adjusted to try and maintain adequate blood pressure control. 6. Diabetes mellitus She will continue evaluation care per internal medicine. 7. Peripheral vascular disease She does have a history of extensive peripheral vascular disease. She states that she had a left antecubital fossa cutdown in the past for a remote diagnostic cardiac catheterization. She has had peripheral vascular surgery on her lower extremities especially the left which she states she is still healing from. In the past there has been concern as to whether or not her only potential access to her cardiovascular system would be through a right upper extremity approach. Her extensive peripheral vascular history has not raise concerns about performing cardiac catheterization and in the past it has been felt that this, along with her multiple comorbidities, places her at high risk for such a procedure and based upon the concerns of the need for peripheral vascular surgery support that she should have such a procedure performed at a tertiary care center. She was transferred to in the past and unfortunately this type of procedure was not performed on her at that time reportedly because of the concerns of her extensive peripheral vascular disease process. She was asked, as noted above, to consider allowing herself to be transferred to such center for reevaluation. She states she will take this into consideration and discuss it with her family. 8. Chronic renal insufficiency She does have chronic renal insufficiency. This certainly has to be taken into consideration with IV contrast related procedures. 9. Anemia She is anemic. This may be secondary to her multiple medical issues. She does need to be monitored for any obvious other etiologies. If her H&H did continue to decline she may need PRBC transfusions to assist with her oxygen carrying capacity especially in light of any acute cardiovascular events. 10. COPD She does have a history of COPD. She will need continued valuation care per internal medicine. 11. Obesity Unfortunately she remains overweight. She states despite her best efforts to modify her diet, as she cannot perform any type of physical activity, she not bring her weight under better control. Comment: The patient's case has been previously discussed and reviewed with the [facility] emergency [place] staff and the [facility] staff. This note was generated using a voice recognition system and there may be incorrect words, spelling or punctuation that were not noted when reviewing the office note prior to saving.
[2020-04-21] MEDS: Sertraline 100 MG Tablet PO (10:15)
--- NOTE | 2020-04-21 10:45 | CASEMGMT ---
LOIS KRAUSE assessment: Face to Face with patient for initial transition planning/care coordination assessment. LOIS KRAUSE introduced self and role at [facility], pt voices understanding and consents to assessment at this time. Pt is lying in bed in no distress at this time. Pt is A/Ox4 at this time and answers all questions appropriately at this time. Care providers, pharmacy, and demographics verified/updated at this time. Presentation: Pt has gained 10lbs since 04/08, sat 82% when ems arrived. Pt unable to speak in full sentences Admitting dx: Acute CHF exac w/ NSTEMI PCP: Willi Specialists: Dinesh vascular at [place]; Mp, nephro; Nicole, cardio Preferred Pharmacy: [facility] Insurance: [facility] Prescription Benefit: [facility] Living Will/HPOA: Pt states does not have LW/HPOA and declines need for AD info at this time. LNOK: Walter Munoz, ; Walter/Jelena Munoz, son/daughter in law Living Arrangements: Pt states lives with in 1 story home and states no concerns at home at this time. Pt states is independent with ADL's. Transportation: Pt states drives and states no transportation concerns at this time. DME/HHC: Pt states has a cane and walker at home and states no need for any further DME at this time. Pt states would prefer [facility] if O2 needed at d/c. Pt states had been on home oxygen but it was picked up in February 2020. Green sheet left on chart for home oxygen qualification. Pt states no hx of SNF but has had HHC in the past and declines need for HHC at this time. Pt states no concerns with going home at time of discharge. Pt states is retired. Pt states does not smoke cigarettes and occasionally drinks ETOH. Pt states no further concerns/needs at this time. CM to follow for any further discharge planning/needs. Advised pt to ask for CM if any further questions/concerns/needs arise, voices understanding. Pt Goal: [place] LOIS KRAUSE
[2020-04-21] MEDS: Nitroglycerin Oint 1 INCH PACKET TD ×2 (11:26→16:48)
[2020-04-21] MEDS: Insulin Lispro 100 UNIT/ML INSULN.PEN SC ×3 (11:32→21:09)
[2020-04-21 11:41] LABS: Bedside Glucose 199 mg/dL (70-110)
--- NOTE | 2020-04-21 13:38 | PCM.PROGNOTE ---
<Trinh Thayer LOGISTICS ACCOUNT MANAGER - Last Filed: 04/21/20 14:03> Patient Problems: Active and Suspected Problems (Last Reviewed 04/21/20 @ 01:[address] Harlan Shah MD) CHF exacerbation (Acute) Non-ST elevation myocardial infarction (NSTEMI) (Acute) CHF (congestive heart failure) (Acute) Cardiomyopathy (Acute) Subjective: Patient seen and examined. Continues to have shortness of breath. Intermittent chest pressure. Again discussed with patient transfer to tertiary facility and she is adamant that she would like to remain at [facility] and continue medical management. - Physical Exam Vitals/I&O's: Vital Signs Temp Pulse Resp BP Pulse Ox 97.7 F L 80 18 127/53 H 99 04/21/20 07:30 04/21/20 11:26 04/21/20 07:30 04/21/20 11:26 04/21/20 07:30 Oxygen Flow Rate (L/min) 3.5 Oxygen Delivery Method Nasal Cannula Weight: 209 lb 10.554 oz Body Mass Index (BMI) 33.3 Intake and Output for Last 24 Hours 04/19/20 04/20/20 04/21/20 23:59 23:59 23:59 Intake Total 240 / 240 Output Total 725 / 725 Balance -485 / -485 General: Alert, Oriented x3, Cooperative HEENT: Atraumatic, PERRLA, EOMI, Normocephalic Neck: Supple, No JVD, Negative Carotid Bruits Lungs: Diminished, Rales Cardiovascular: Regular rate, Regular Rhythm, Normal S1, Normal S2 Abdomen: Bowel Sounds Present, Soft, Non Tender, Non-Distended Extremities: No clubbing, No cyanosis, Capillary Refill Less than 3 Seconds, Edema - Bilateral lower extremities, nonpitting Skin: No rashes, No breakdown Musculoskeletal: No Tenderness to Palpation of Joints or Extremities Neurological: Cranial nerves II-XII grossly intact, Neuro grossly intact Psych/Mental Status: Normal Affect, Appropriate Microbiology Past 72 Hours 04/20/20 23:20 Mucosa - Nose SARS-CoV-2 Antigen (Rapid) - Final Laboratory Results 04/20/20 23:00: WBC 10.7, RBC 3.11 L, Hgb 9.0 L, Hct 30.6 L, MCV 98.4, MCH 28.9, MCHC 29.4 L, RDW Std Deviation 63.9 H, RDW Coeff of Geovanna 18.1 H, Plt Count 171, MPV 9.4, Immature Gran % (Auto) 1.800 H, Neut % (Auto) 79.7 H, Lymph % (Auto) 11.1 L, [place] % (Auto) 5.3, Eos % (Auto) 1.6, Baso % (Auto) 0.5, Absolute Neuts (auto) 8.5 H, Absolute Lymphs (auto) 1.18, Nucleated RBC % 0 04/20/20 23:00: Sodium 144, Potassium 3.4 L, Chloride 109 H, Carbon Dioxide 27.0, Anion Gap 8, BUN 28 H, Creatinine 1.72 H, Estim Creat Clear Calc 28.08, Est GFR (MDRD) Af Amer 38 L, Est GFR (MDRD) Non-Af 31 L, BUN/Creatinine Ratio 16.3, Glucose 242 H, Calcium 7.8 L, Troponin I 2.330 H* 04/20/20 23:00: B-Natriuretic Peptide 1978.9 H 04/20/20 23:00: PT 37.7 H, INR 3.9 H* 04/21/20 02:10: Troponin I 9.380 H* 04/21/20 05:26: WBC 10.4, RBC 2.87 L, Hgb 8.6 L, Hct 27.9 L, MCV 97.2, MCH 30.0, MCHC 30.8 L, RDW Std Deviation 62.2 H, RDW Coeff of Geovanna 17.7 H, Plt Count 169, MPV 11.2, Immature Gran % (Auto) 0.500, Neut % (Auto) 79.7 H, Lymph % (Auto) 13.7 L, [place] % (Auto) 5.4, Eos % (Auto) 0.3, Baso % (Auto) 0.4, Absolute Neuts (auto) 8.3 H, Absolute Lymphs (auto) 1.42, Nucleated RBC % 0 04/21/20 05:26: PT 40.1 H, INR 4.2 H* 04/21/20 05:26: Sodium 144, Potassium 3.3 L, Chloride 108 H, Carbon Dioxide 29.0, Anion Gap 7, BUN 27 H, Creatinine 1.64 H, Estim Creat Clear Calc 29.45, Est GFR (MDRD) Af Amer 40 L, Est GFR (MDRD) Non-Af 33 L, BUN/Creatinine Ratio 16.5, Glucose 185 H, Calcium 7.6 L, Magnesium 1.5 L 04/21/20 05:26: Troponin I 17.400 H* 04/21/20 07:05: POC Glucose 168 H 04/21/20 09:10: Troponin I 20.100 H* 04/21/20 11:23: POC Glucose 199 H 04/21/20 12:20: Troponin I 20.300 H* Current Medications Acetaminophen (Acetaminophen 325 Mg Tablet) 650 mg PO Q6H PRN PRN PRN Reason: Pain Score 1-10/Temp > 100.7 F Albuterol Sulfate (Albuterol 2.5 Mg/3 Ml Vial.Neb.) 2.5 mg INHALATION Q2H PRN PRN PRN Reason: sob/wheezing Allopurinol (Allopurinol 100 Mg Tablet) 100 mg PO BID [facility] Last Admin: 04/21/20 08:24 Dose: 100 mg Documented by: Carvedilol (Carvedilol 6.25 Mg Tablet) 6.25 mg PO BID [facility] Last Admin: 04/21/20 08:24 Dose: 6.25 mg Documented by: Clopidogrel Bisulfate (Clopidogrel Bisulfate 75 Mg Tablet) 75 mg PO DAILY [facility] Last Admin: 04/21/20 08:24 Dose: 75 mg Documented by: Cyanocobalamin (Cyanocobalamin 500 Mcg Tablet) 1,000 mcg PO DAILY [facility] Last Admin: 04/21/20 08:24 Dose: 1,000 mcg Documented by: Dextrose (Dextrose 50%-Water 25 Gm/50 Ml Disp.Syrin) 0 gm IV X1 PRN; Protocol PRN Reason: Hypoglycemia Ferrous Sulfate (Ferrous [facility] 325 Mg Tablet) [facility] Last Admin: 04/21/20 08:24 Dose: 325 mg Documented by: Furosemide (Furosemide 40 Mg/4 Ml Vial) 40 mg IV BID@1000,1800 [facility] Last Admin: 04/21/20 08:37 Dose: 40 mg Documented by: Gabapentin (Gabapentin 300 Mg Capsule) 300 mg PO BID [facility] Last Admin: 04/21/20 08:24 Dose: 300 mg Documented by: Glipizide (Glipizide 10 Mg Tablet) [facility] Last Admin: 04/21/20 08:24 Dose: 10 mg Documented by: Glucagon (Glucagon 1 Mg/Ml Syringe) 1 mg IM .X1 PRN PRN Reason: Hypoglycemia Sodium Chloride () 250 mls @ 15 mls/hr IV .[id number] PRN PRN Reason: Saline Flush Sodium Chloride () 250 mls @ 15 mls/hr IV .[id number] PRN PRN Reason: Additional IVPB Infusion Insulin Human Lispro (Insulin Lispro 100 Unit/Ml Insuln.Pen) 0 unit [facility]; Protocol Last Admin: 04/21/20 11:32 Dose: 2 u Documented by: Lisinopril (Lisinopril 10 Mg Tablet) 10 mg PO DAILY [facility] Last Admin: 04/21/20 08:24 Dose: 10 mg Documented by: Melatonin (Melatonin 3 Mg Tablet) 3 mg PO QHS PRN PRN PRN Reason: INSOMNIA Nitroglycerin (Nitroglycerin (Inpatient Use) 0.4 Mg Tab.Subl) 0.4 mg SUBLINGUAL Q5M PRN PRN Reason: CARDIAC/CHEST PAIN Last Admin: 04/21/20 06:14 Dose: 0.4 mg Documented by: Nitroglycerin (Nitroglycerin Oint 1 Inch Packet) 1 inch TD Q6 [facility] Last Admin: 04/21/20 11:26 Dose: 1 inch Documented by: Pantoprazole Sodium (Pantoprazole Sodium 40 Mg Tablet) 40 mg PO DAILY [facility] Last Admin: 04/21/20 08:24 Dose: 40 mg Documented by: Potassium Chloride (Potassium Chloride 20 Meq Tablet) [facility] meq [facility] Last Admin: 04/21/20 08:25 Dose: 40 meq Documented by: Pravastatin Sodium (Pravastatin 80 Mg Tablet) 80 mg PO QHS [facility] Prochlorperazine Edisylate (Prochlorperazine 10 Mg/2 Ml Vial) 5 mg IV Q4H PRN PRN PRN Reason: NAUSEA/VOMITING Last Admin: 04/21/20 08:33 Dose: 5 mg Documented by: Senna/Docusate Sodium (Senna/Docusate Sodium 1 Tablet) 2 tablet PO BID PRN PRN PRN Reason: Constipation Sertraline HCl (Sertraline 100 Mg Tablet) 100 mg PO DAILY [facility] Last Admin: 04/21/20 10:15 Dose: 100 mg Documented by: Sodium Chloride (0.9% Saline Lock 10 Ml Syringe) 10 - 40 ml IV UD PRN PRN Reason: SALINE FLUSH Last Admin: 04/21/20 08:23 Dose: 20 ml Documented by: Tizanidine HCl (Tizanidine Hcl 2 Mg Tablet) 4 mg PO Q6H PRN PRN PRN Reason: SPASMS Medical Necessity - Tobacco Use Smoking Status: Former smoker Tobacco Use: Cigarettes Assessment/Plan All Active Problems (Last Reviewed 04/21/20 @ 01:[address] Harlan Shah MD) CHF exacerbation (Acute) Non-ST elevation myocardial infarction (NSTEMI) (Acute) CHF (congestive heart failure) (Acute) Cardiomyopathy (Acute) NSTEMI (non-ST elevated myocardial infarction) (Resolved) 1. Acute hypoxic respiratory insufficiency secondary to acute on chronic heart failure with reduced ejection fraction-BNP 1977. Chest x-ray consistent with CHF. Echocardiogram September 2019 demonstrated an EF of 30%. IV Lasix. Cardiology consulted. Strict I&O. Daily weight. Repeat echo ordered. 2. NSTEMI-cardiology following, recommending diagnostic cardiac catheterization however given patient's underlying extensive peripheral vascular disease with , patient was recommended to transfer to tertiary facility where she had a prior lower extremity bypass for further cardiac evaluation. Patient is not amendable to transfer at this time and wants to continue aggressive medical management. Continue statin, nitrate, lisinopril, Plavix, carvedilol. 3. Recent DVT bilaterally/supratherapeutic INR-Coumadin on hold, trend INR. 4. Chronic COPD-no exacerbation. As needed albuterol aerosol. 5. Chronic kidney disease stage III-stable, trend BMP. 6. CAD-continue medical management as noted above. 7. Extensive peripheral vascular disease with history of left lower extremity bypass at [facility] 8.Chronic normocytic anemia-trend CBC. 9. Hypertension-stable, continue current regimen. 10. Hyperlipidemia- continue statin. 11. Type 2 diabetes [id number] with sliding scale insulin. 12. Obesity-encouraged diet and lifestyle modifications. DVT prophylaxis-Coumadin on hold, supratherapeutic INR This patient was seen by [facility] under the supervision of Dr. Ybarra. <Esau Ybarra - Last Filed: 04/21/20 15:44> - Physical Exam Vitals/I&O's: Vital Signs Temp Pulse Resp BP Pulse Ox 98.1 F 76 18 142/62 H 98 04/21/20 13:30 04/21/20 13:30 04/21/20 13:30 04/21/20 13:30 04/21/20 13:30 Oxygen Flow Rate (L/min) 2 Oxygen Delivery Method Nasal Cannula Weight: 95.1 kg Body Mass Index (BMI) 33.3 Intake and Output for Last 24 Hours 04/19/20 04/20/20 04/21/20 23:59 23:59 23:59 Intake Total 240 / 240 Output Total 725 / 725 Balance -485 / -485 Microbiology Past 72 Hours 04/20/20 23:20 Mucosa - Nose SARS-CoV-2 Antigen (Rapid) - Final Laboratory Results 04/20/20 23:00: WBC 10.7, RBC 3.11 L, Hgb 9.0 L, Hct 30.6 L, MCV 98.4, MCH 28.9, MCHC 29.4 L, RDW Std Deviation 63.9 H, RDW Coeff of Geovanna 18.1 H, Plt Count 171, MPV 9.4, Immature Gran % (Auto) 1.800 H, Neut % (Auto) 79.7 H, Lymph % (Auto) 11.1 L, [place] % (Auto) 5.3, Eos % (Auto) 1.6, Baso % (Auto) 0.5, Absolute Neuts (auto) 8.5 H, Absolute Lymphs (auto) 1.18, Nucleated RBC % 0 04/20/20 23:00: Sodium 144, Potassium 3.4 L, Chloride 109 H, Carbon Dioxide 27.0, Anion Gap 8, BUN 28 H, Creatinine 1.72 H, Estim Creat Clear Calc 28.08, Est GFR (MDRD) Af Amer 38 L, Est GFR (MDRD) Non-Af 31 L, BUN/Creatinine Ratio 16.3, Glucose 242 H, Calcium 7.8 L, Troponin I 2.330 H* 04/20/20 23:00: B-Natriuretic Peptide 1978.9 H 04/20/20 23:00: PT 37.7 H, INR 3.9 H* 04/21/20 02:10: Troponin I 9.380 H* 04/21/20 05:26: WBC 10.4, RBC 2.87 L, Hgb 8.6 L, Hct 27.9 L, MCV 97.2, MCH 30.0, MCHC 30.8 L, RDW Std Deviation 62.2 H, RDW Coeff of Geovanna 17.7 H, Plt Count 169, MPV 11.2, Immature Gran % (Auto) 0.500, Neut % (Auto) 79.7 H, Lymph % (Auto) 13.7 L, [place] % (Auto) 5.4, Eos % (Auto) 0.3, Baso % (Auto) 0.4, Absolute Neuts (auto) 8.3 H, Absolute Lymphs (auto) 1.42, Nucleated RBC % 0 04/21/20 05:26: PT 40.1 H, INR 4.2 H* 04/21/20 05:26: Sodium 144, Potassium 3.3 L, Chloride 108 H, Carbon Dioxide 29.0, Anion Gap 7, BUN 27 H, Creatinine 1.64 H, Estim Creat Clear Calc 29.45, Est GFR (MDRD) Af Amer 40 L, Est GFR (MDRD) Non-Af 33 L, BUN/Creatinine Ratio 16.5, Glucose 185 H, Calcium 7.6 L, Magnesium 1.5 L 04/21/20 05:26: Troponin I 17.400 H* 04/21/20 07:05: POC Glucose 168 H 04/21/20 09:10: Troponin I 20.100 H* 04/21/20 11:23: POC Glucose 199 H 04/21/20 12:20: Troponin I 20.300 H* Current Medications Acetaminophen (Acetaminophen 325 Mg Tablet) 650 mg PO Q6H PRN PRN PRN Reason: Pain Score 1-10/Temp > 100.7 F Albuterol Sulfate (Albuterol 2.5 Mg/3 Ml Vial.Neb.) 2.5 mg INHALATION Q2H PRN PRN PRN Reason: sob/wheezing Allopurinol (Allopurinol 100 Mg Tablet) 100 mg PO BID [facility] Last Admin: 04/21/20 08:24 Dose: 100 mg Documented by: Carvedilol (Carvedilol 6.25 Mg Tablet) 6.25 mg PO BID [facility] Last Admin: 04/21/20 08:24 Dose: 6.25 mg Documented by: Clopidogrel Bisulfate (Clopidogrel Bisulfate 75 Mg Tablet) 75 mg PO DAILY [facility] Last Admin: 04/21/20 08:24 Dose: 75 mg Documented by: Cyanocobalamin (Cyanocobalamin 500 Mcg Tablet) 1,000 mcg PO DAILY [facility] Last Admin: 04/21/20 08:24 Dose: 1,000 mcg Documented by: Dextrose (Dextrose 50%-Water 25 Gm/50 Ml Disp.Syrin) 0 gm IV X1 PRN; Protocol PRN Reason: Hypoglycemia Ferrous Sulfate (Ferrous Sulfate 325 Mg Tablet) [facility] Last Admin: 04/21/20 08:24 Dose: 325 mg Documented by: Furosemide (Furosemide 40 Mg/4 Ml Vial) 40 mg IV BID@1000,1800 [facility] Last Admin: 04/21/20 08:37 Dose: 40 mg Documented by: Gabapentin (Gabapentin 300 Mg Capsule) 300 mg PO BID [facility] Last Admin: 04/21/20 08:24 Dose: 300 mg Documented by: Glipizide (Glipizide 10 Mg Tablet) [facility] Last Admin: 04/21/20 08:24 Dose: 10 mg Documented by: Glucagon (Glucagon 1 Mg/Ml Syringe) 1 mg IM .X1 PRN PRN Reason: Hypoglycemia Sodium Chloride () 250 mls @ 15 mls/hr IV .[id number] PRN PRN Reason: Saline Flush Sodium Chloride () 250 mls @ 15 mls/hr IV .[id number] PRN PRN Reason: Additional IVPB Infusion Magnesium Sulfate 2 gm/ Sodium (Chloride) 104 mls @ 52 mls/hr IV X1 ONE Stop: 04/21/20 16:29 Last Admin: 04/21/20 14:50 Dose: 52 mls/hr Documented by: Insulin Human Lispro (Insulin Lispro 100 Unit/Ml Insuln.Pen) 0 unit [facility]; Protocol Last Admin: 04/21/20 11:32 Dose: 2 u Documented by: Lisinopril (Lisinopril 10 Mg Tablet) 10 mg PO DAILY [facility] Last Admin: 04/21/20 08:24 Dose: 10 mg Documented by: Melatonin (Melatonin 3 Mg Tablet) 3 mg PO QHS PRN PRN PRN Reason: INSOMNIA Nitroglycerin (Nitroglycerin (Inpatient Use) 0.4 Mg Tab.Subl) 0.4 mg SUBLINGUAL Q5M PRN PRN Reason: CARDIAC/CHEST PAIN Last Admin: 04/21/20 06:14 Dose: 0.4 mg Documented by: Nitroglycerin (Nitroglycerin Oint 1 Inch Packet) 1 inch TD Q6 [facility] Last Admin: 04/21/20 11:26 Dose: 1 inch Documented by: Pantoprazole Sodium (Pantoprazole Sodium 40 Mg Tablet) 40 mg PO DAILY [facility] Last Admin: 04/21/20 08:24 Dose: 40 mg Documented by: Potassium Chloride (Potassium Chloride 20 Meq Tablet) 40 meq PO BIDCM [facility] Last Admin: 04/21/20 08:25 Dose: 40 meq Documented by: Pravastatin Sodium (Pravastatin 80 Mg Tablet) 80 mg PO QHS [facility] Prochlorperazine Edisylate (Prochlorperazine 10 Mg/2 Ml Vial) 5 mg IV Q4H PRN PRN PRN Reason: NAUSEA/VOMITING Last Admin: 04/21/20 08:33 Dose: 5 mg Documented by: Senna/Docusate Sodium (Senna/Docusate Sodium 1 Tablet) 2 tablet PO BID PRN PRN PRN Reason: Constipation Sertraline HCl (Sertraline 100 Mg Tablet) 100 mg PO DAILY [facility] Last Admin: 04/21/20 10:15 Dose: 100 mg Documented by: Sodium Chloride (0.9% Saline Lock 10 Ml Syringe) 10 - 40 ml IV UD PRN PRN Reason: SALINE FLUSH Last Admin: 04/21/20 08:23 Dose: 20 ml Documented by: Tizanidine HCl (Tizanidine Hcl 2 Mg Tablet) 4 mg PO Q6H PRN PRN PRN Reason: SPASMS Assessment/Plan Signed with Trinh this patient was seen in conjunction with [facility] . I have independently interviewed and examined the patient and reviewed pertinent historical, laboratory, and other data. Please refer to [facility] note for details of this patient's presentation, findings, and recommendations. I have reviewed [facility] note and concur with documented findings. In brief, patient is a 70-year-old lady with multiple comorbidities admitted with progressive shortness of breath and assessment of acute on chronic congestive heart failure with reduced ejection fraction made admitted to a monitored bed with consultation placed to cardiology. Patient was also found to have elevated troponin on admission Physical Examination: GENERAL: cooperative HEENT: Atraumatic; EYES; Anicteric, NECK; supple, normal thyroid, RESPIRATORY: Diminished to auscultation CARDIOVASCULAR: Regular S1 S2, GI: soft, normoactive bowel sounds, : No Renal angle tenderness; EXTREMITIES: No edema, no clubbing, MUSCULOSKELETAL: no muscle waisting NEURO: Awake; no lateralizing signs. SKIN: No Rash PSYCH; Flat affect Assessment: 1. Acute hypoxic respiratory failure 2. Acute on chronic congestive heart failure with reduced ejection fraction 3. Acute non-STEMI 4. Recent bilateral DVT on systemic anticoagulation with Coumadin 5. COPD exacerbation 6. Coronary artery disease 7. Peripheral arterial disease 8. Chronic kidney disease stage III 9. Anemia secondary to anemia of chronic disorder 10. Essential hypertension 11. Dyslipidemia 12. Diabetes mellitus type 2 13. Obesity with BMI of 33 14. DVT prophylaxis Recommendations: 1. I have discussed the results of my overview and impressions with the patient 2. Options for management were reviewed Advance planning; did discuss with the patient and family regarding advanced directives as well as CODE STATUS. Did explain the various scenarios involved ( FULL CODE, DNR CCA, DNR CCA with no intubation, and DNR CC and what each meant) patient elected code with CPR and intubation if warranted. Order was placed. Time spent on discussion 18 minutes. Inpatient E&M: 74586 Subs Hosp L3 Procedures: 74608 Advncd Care Plan 30 Min
[2020-04-21 17:05] LABS: Bedside Glucose 179 mg/dL (70-110)
[2020-04-21] MEDS: Pravastatin 80 MG Tablet PO (21:03)
[2020-04-21] MEDS: MELATONIN 3 MG TABLET PO (21:03)
[2020-04-21] MEDS: Acetaminophen 325 MG Tablet 650 MG PO (21:03)
[2020-04-21 21:36] LABS: Bedside Glucose 158 mg/dL (70-110)
[2020-04-22] VITALS (18 sets, daily range): BP systolic 80–115; BP diastolic 24–90; PULSE 56–99; RESP 16–24; TEMP 36.3–37.2; O2SAT 93–100
--- NOTE | 2020-04-22 05:55 | EKG12_ITS ---
Test Reason : Blood Pressure : / mmHG Vent. Rate : 057 BPM Atrial Rate : 057 BPM P-R Int : 162 ms QRS Dur : 078 ms QT Int : 522 ms P-R-T Axes : 050 061 152 degrees QTc Int : 508 ms Sinus bradycardia Low voltage QRS T wave abnormality, consider anterolateral ischemia Prolonged QT Abnormal ECG Confirmed by PATRICIA EISENBERG, EMMETT ([id number]), electronic news gathering editor SHAWN RIDLEY ([id number]) on 04/27/2020 9:07:12 AM Referred By: SERGIO Confirmed By:EMMETT GOMEZ MD
[2020-04-22 07:11] LABS: Bedside Glucose 134 mg/dL (70-110)
[2020-04-22 07:32] LABS: Anion Gap 6 (5-15); BUN 34 mg/dL (7-18); BUN/Creat Ratio 15.2 RATIO (10-20); Calcium,Total 7.7 mg/dL (8.5-10.1); Chloride 110 mmol/L (98-107); Creatinine, Serum 2.24 mg/dL (0.55-1.02); EST Glomerular Filtration Rate 23 mL/min (>60); Est Glom Filt Rate - Afr Amer 28 mL/min (>60); Estimated Creatinine Clearance 21.56 ml/min; Glucose 116 mg/dL (74-106); Potassium 4.6 mmol/L (3.5-5.1); Sodium Level 141 mmol/L (136-145)
[2020-04-22 09:41] LABS: Absolute Lymphocyte Count 1.74 X10^3/uL (0.83-4.51); Absolute Neutrophil Count 6.4 X10^3/uL (2.0-7.7); Basophil# 0.04 X10^3/uL; Basophil% 0.4 % (0-1); Eosinophils% 3.3 % (0-5); Hematocrit 28.1 % (37-47); Hemoglobin 8.4 g/dL (12.0-15.0); Lymphocyte # 1.74 X10^3/ul (4.0); Lymphocyte % 19.3 % (19-41); Mean Corp Hgb Conc 29.9 g/dL (32-36); Mean Corpuscular Hgb 29.7 pg (27.0-32.0); Mean Corpuscular Volume 99.3 fL (81-99); Mean Platelet Vol. 10.3 fl (6.2-12.0); Monocyte# 0.51 X10^3/uL; Monocyte% 5.7 % (0-10); NRBC Flagged by Analyzer 0.2 % (0-5); Neutrophil # 6.39 X10^3/uL (2.7-7.7); Neutrophil % 70.9 % (47-70); POSITIVE MORPHOLOGY YES; Platelet Count 147 K/mm3 (150-450); RBC Distribution Width SD 65.2 fl (35.1-43.9); Red Blood Count 2.83 M/mm3 (4.2-5.4)
[2020-04-22 09:42] LABS: Differential Indicated SCAN CRITERIA MET
[2020-04-22] MEDS: Gabapentin 300 MG Capsule PO ×2 (10:01→21:18)
[2020-04-22] MEDS: Sertraline 100 MG Tablet PO (10:01)
[2020-04-22] MEDS: Pantoprazole Sodium 40 MG Tablet PO (10:01)
[2020-04-22] MEDS: Cyanocobalamin 500 MCG Tablet 1000 MCG PO (10:01)
[2020-04-22] MEDS: Allopurinol 100 MG Tablet PO ×2 (10:01→21:18)
[2020-04-22] MEDS: Clopidogrel Bisulfate 75 MG Tablet PO (10:02)
[2020-04-22] MEDS: Ferrous Sulfate 325 MG Tablet PO ×2 (10:02→16:38)
[2020-04-22] MEDS: glipiZIDE 10 MG Tablet PO (10:02)
[2020-04-22 10:19] LABS: International Normalized Ratio 3.9
[2020-04-22 10:34] LABS: Anisocytosis 1+; Hypochromasia 2+; Platelet Estimate ADEQUATE (ADEQ)
[2020-04-22 10:35] LABS: Macrocytosis RARE
[2020-04-22] MEDS: Insulin Lispro 100 UNIT/ML INSULN.PEN SC ×2 (11:43→21:18)
[2020-04-22 11:56] LABS: Bedside Glucose 151 mg/dL (70-110)
--- NOTE | 2020-04-22 13:53 | PCM.PROGNOTE ---
<JeovanyTrinh BUSINESS EMPLOYMENT SPECIALIST - Last Filed: 04/22/20 13:57> Patient Problems: Active and Suspected Problems (Last Reviewed 04/21/20 @ 01:[address] Harlan Shah MD) CHF exacerbation (Acute) Non-ST elevation myocardial infarction (NSTEMI) (Acute) CHF (congestive heart failure) (Acute) Cardiomyopathy (Acute) Subjective: Patient seen and examined. States she overall feels improved however continues to have dyspnea with exertion. Denies chest pain. - Physical Exam Vitals/I&O's: Vital Signs Temp Pulse Resp BP Pulse Ox 98.3 F 76 18 98/31 L 96 04/22/20 11:45 04/22/20 11:50 04/22/20 11:45 04/22/20 11:50 04/22/20 11:45 Oxygen Flow Rate (L/min) 1 Oxygen Delivery Method Nasal Cannula Weight: 206 lb 9 oz Body Mass Index (BMI) 33.3 Intake and Output for Last 24 Hours 04/20/20 04/21/20 04/22/20 23:59 23:59 23:59 Intake Total 734 / 734 500 / 500 Output Total 1275 / 1275 300 / 300 Balance -541 / -541 200 / 200 General: Alert, Oriented x3, Cooperative HEENT: Atraumatic, PERRLA, EOMI, Normocephalic Neck: Supple, No JVD, Negative Carotid Bruits Lungs: Clear to auscultation, Diminished Cardiovascular: Regular rate, Regular Rhythm, Normal S1, Normal S2 Abdomen: Bowel Sounds Present, Soft, Non Tender, Non-Distended Extremities: No clubbing, No cyanosis, No edema Skin: No rashes, No breakdown Musculoskeletal: No Tenderness to Palpation of Joints or Extremities Neurological: Cranial nerves II-XII grossly intact, Neuro grossly intact Psych/Mental Status: Normal Affect, Appropriate Microbiology Past 72 Hours 04/20/20 23:20 Mucosa - Nose SARS-CoV-2 Antigen (Rapid) - Final Laboratory Results 04/21/20 16:40: POC Glucose 179 H 04/21/20 21:08: POC Glucose 158 H 04/22/20 05:25: WBC Cancelled, Corrected WBC Cancelled, RBC Cancelled, Hgb Cancelled, Hct Cancelled, MCV Cancelled, MCH Cancelled, MCHC Cancelled, RDW Std Deviation Cancelled, RDW Coeff of Geovanna Cancelled, Plt Count Cancelled, MPV Cancelled, Immature Gran % (Auto) Cancelled, Neut % (Auto) Cancelled, Lymph % (Auto) Cancelled, Rutherford % (Auto) Cancelled, Eos % (Auto) Cancelled, Baso % (Auto) Cancelled, Absolute Neuts (auto) Cancelled, Absolute Lymphs (auto) Cancelled, Total Counted Cancelled, Neutrophils % (Manual) Cancelled, Band Neutrophils % Cancelled, Lymphocytes % (Manual) Cancelled, Monocytes % (Manual) Cancelled, Eosinophils % (Manual) Cancelled, Basophils % (Manual) Cancelled, Metamyelocytes % Cancelled, Myelocytes % Cancelled, Promyelocytes % Cancelled, Blast Cells % Cancelled, Plasma Cell % (Manual) Cancelled, Other Cells % Cancelled, Nucleated RBC % Cancelled, Nucleated RBCs/100 WBC Cancelled, Differential Comment Cancelled, Diff Path Review Cancelled, Hypersegmented Neuts Cancelled, Atypical Lymphocytes Cancelled, Reactive Lymphocytes Cancelled, Smudge Cells Cancelled, Toxic Granulation Cancelled, Toxic Vacuolation Cancelled, Dohle Bodies Cancelled, Jesus Rods Cancelled, Platelet Estimate Cancelled, Plt Morphology Comment Cancelled, RBC Morphology Cancelled, Polychromasia Cancelled, Hypochromasia Cancelled, Poikilocytosis Cancelled, Basophilic Stippling Cancelled, Anisocytosis Cancelled, Microcytosis Cancelled, Macrocytosis Cancelled, Spherocytes Cancelled, Sickle Cells Cancelled, Target Cells Cancelled, Tear Drop Cells Cancelled, Ovalocytes Cancelled, Stomatocytes Cancelled, Fields-Rose Bodies Cancelled, [place] Cells Cancelled, Bite Cells Cancelled, Crenated Cell Cancelled, Acanthocytes (Spur) Cancelled, Rouleaux Cancelled, Schistocytes Cancelled 04/22/20 05:25: Sodium 141, Potassium 4.6, Chloride 110 H, Carbon Dioxide 25.0, Anion Gap 6, BUN 34 H, Creatinine 2.24 H, Estim Creat Clear Calc 21.56, Est GFR (MDRD) Af Amer 28 L, Est GFR (MDRD) Non-Af 23 L, BUN/Creatinine Ratio 15.2, Glucose 116 H, Calcium 7.7 L 04/22/20 06:56: POC Glucose 134 H 04/22/20 08:52: PT 38.0 H, INR 3.9 H* 04/22/20 08:52: WBC 9.0, RBC 2.83 L, Hgb 8.4 L, Hct 28.1 L, MCV 99.3 H, MCH 29.7, MCHC 29.9 L, RDW Std Deviation 65.2 H, RDW Coeff of Geovanna 18.0 H, Plt Count 147 L, MPV 10.3, Immature Gran % (Auto) 0.400, Neut % (Auto) 70.9 H, Lymph % (Auto) 19.3, Rutherford % (Auto) 5.7, Eos % (Auto) 3.3, Baso % (Auto) 0.4, Absolute Neuts (auto) 6.4, Absolute Lymphs (auto) 1.74, Nucleated RBC % 0.2, Platelet Estimate ADEQUATE, Hypochromasia 2+, Anisocytosis 1+, Macrocytosis RARE 04/22/20 11:42: POC Glucose 151 H Current Medications Acetaminophen (Acetaminophen 325 Mg Tablet) 650 mg PO Q6H PRN PRN PRN Reason: Pain Score 1-10/Temp > 100.7 F Last Admin: 04/21/20 21:03 Dose: 650 mg Documented by: Albuterol Sulfate (Albuterol 2.5 Mg/3 Ml Vial.Neb.) 2.5 mg INHALATION Q2H PRN PRN PRN Reason: sob/wheezing Allopurinol (Allopurinol 100 Mg Tablet) 100 mg PO BID [facility] Last Admin: 04/22/20 10:01 Dose: 100 mg Documented by: Carvedilol (Carvedilol 6.25 Mg Tablet) 6.25 mg PO BID [facility] Last Admin: 04/22/20 10:04 Dose: Not Given Documented by: Clopidogrel Bisulfate (Clopidogrel Bisulfate 75 Mg Tablet) 75 mg PO DAILY [facility] Last Admin: 04/22/20 10:02 Dose: 75 mg Documented by: Cyanocobalamin (Cyanocobalamin 500 Mcg Tablet) 1,000 mcg PO DAILY [facility] Last Admin: 04/22/20 10:01 Dose: 1,000 mcg Documented by: Dextrose (Dextrose 50%-Water 25 Gm/50 Ml Disp.Syrin) 0 gm IV X1 PRN; Protocol PRN Reason: Hypoglycemia Ferrous Sulfate ([facility] 325 Mg [facility]) [facility] Last Admin: 04/22/20 10:02 Dose: 325 mg Documented by: Furosemide (Furosemide 40 Mg/4 Ml Vial) 40 mg IV DAILY [facility] Last Admin: 04/22/20 10:04 Dose: Not Given Documented by: Gabapentin (Gabapentin 300 Mg Capsule) 300 mg PO BID [facility] Last Admin: 04/22/20 10:01 Dose: 300 mg Documented by: Glipizide (Glip[facility]ide 10 Mg Tablet) [facility] Last Admin: 04/22/20 10:02 Dose: 10 mg Documented by: Glucagon (Glucagon 1 Mg/Ml Syringe) 1 mg IM .X1 PRN PRN Reason: Hypoglycemia Sodium Chloride () 250 mls @ 15 mls/hr IV .[id number] PRN PRN Reason: Saline Flush Sodium Chloride () 250 mls @ 15 mls/hr IV .[id number] PRN PRN Reason: Additional IVPB Infusion Insulin Human Lispro (Insulin Lispro 100 Unit/Ml Insuln.Pen) 0 unit SC [facility]; Protocol Last Admin: 04/22/20 11:43 Dose: 1 u Documented by: Melatonin (Melatonin 3 Mg Tablet) 3 mg PO QHS PRN PRN PRN Reason: INSOMNIA Last Admin: 04/21/20 21:03 Dose: 3 mg Documented by: Nitroglycerin (Nitroglycerin (Inpatient Use) 0.4 Mg Tab.Subl) 0.4 mg SUBLINGUAL Q5M PRN PRN Reason: CARDIAC/CHEST PAIN Last Admin: 04/21/20 06:14 Dose: 0.4 mg Documented by: Nitroglycerin (Nitroglycerin Oint 1 Inch Packet) 1 inch TD Q6 [facility] Last Admin: 04/22/20 11:50 Dose: Not Given Documented by: Pantoprazole Sodium (Pantoprazole Sodium 40 Mg Tablet) 40 mg PO DAILY [facility] Last Admin: 04/22/20 10:01 Dose: 40 mg Documented by: Potassium Chloride (Potassium Chloride 20 Meq Tablet) [facility] Last Admin: 04/22/20 10:02 Dose: 40 meq Documented by: Pravastatin Sodium (Pravastatin 80 Mg Tablet) 80 mg PO QHS [facility] Last Admin: 04/21/20 21:03 Dose: 80 mg Documented by: Prochlorperazine Edisylate (Prochlorperazine 10 Mg/2 Ml Vial) 5 mg IV Q4H PRN PRN PRN Reason: NAUSEA/VOMITING Last Admin: 04/21/20 08:33 Dose: 5 mg Documented by: Senna/Docusate Sodium (Senna/Docusate Sodium 1 Tablet) 2 tablet PO BID PRN PRN PRN Reason: Constipation Sertraline HCl (Sertraline 100 Mg Tablet) 100 mg PO DAILY [facility] Last Admin: 04/22/20 10:01 Dose: 100 mg Documented by: Sodium Chloride (0.9% Saline Lock 10 Ml Syringe) 10 - 40 ml IV UD PRN PRN Reason: SALINE FLUSH Last Admin: 04/21/20 16:46 Dose: 10 ml Documented by: Tizanidine HCl (Tizanidine Hcl 2 Mg Tablet) 4 mg PO Q6H PRN PRN PRN Reason: SPASMS Medical Necessity - Tobacco Use Smoking Status: Former smoker Tobacco Use: Cigarettes Assessment/Plan All Active Problems (Last Reviewed 04/21/20 @ 01:[address] Harlan Shah MD) CHF exacerbation (Acute) Non-ST elevation myocardial infarction (NSTEMI) (Acute) CHF (congestive heart failure) (Acute) Cardiomyopathy (Acute) NSTEMI (non-ST elevated myocardial infarction) (Resolved) 1. Acute hypoxic respiratory insufficiency secondary to acute on chronic heart failure with reduced ejection fraction-BNP 1977. Chest x-ray consistent with CHF. Echocardiogram September 2019 demonstrated an EF of 30%. IV Lasix. Cardiology consulted. Strict I&O. Daily weight. Repeat echo demonstrates an EF of 25%, moderate tricuspid valve insufficiency, RVSP estimated to be 35 mmHg. Home oxygen testing prior to discharge. 2. NSTEMI-cardiology following, recommending diagnostic cardiac catheterization however given patient's underlying extensive peripheral vascular disease with , patient was recommended to transfer to tertiary facility where she had a prior lower extremity bypass for further cardiac evaluation. Patient is not amendable to transfer at this time and wants to continue aggressive medical management. Continue statin, nitrate, lisinopril, Plavix, carvedilol. 3. Recent DVT bilaterally/supratherapeutic INR-Coumadin on hold, trend INR. 4. Chronic COPD-no exacerbation. As needed albuterol aerosol. 5. Chronic kidney disease stage III-Lasix regimen reduced due to increasing creatinine. Trend BMP. 6. CAD-continue medical management as noted above. 7. Extensive peripheral vascular disease with history of left lower extremity bypass at [facility] 8.Chronic normocytic anemia-trend CBC. 9. Hypertension-stable, continue current regimen. 10. Hyperlipidemia- continue statin. 11. Type 2 diabetes [id number] with sliding scale insulin. 12. Obesity-encouraged diet and lifestyle modifications. DVT prophylaxis-Coumadin on hold, supratherapeutic INR This patient was seen by LOVE Denis under the supervision of Dr. Ybarra. <Esau Ybarra - Last Filed: 04/22/20 14:54> - Physical Exam Vitals/I&O's: Vital Signs Temp Pulse Resp BP Pulse Ox 98.3 F 76 18 98/31 L 96 04/22/20 11:45 04/22/20 11:50 04/22/20 11:45 04/22/20 11:50 04/22/20 11:45 Oxygen Flow Rate (L/min) 1 Oxygen Delivery Method Nasal Cannula Weight: 93.695 kg Body Mass Index (BMI) 33.3 Intake and Output for Last 24 Hours 04/20/20 04/21/20 04/22/20 23:59 23:59 23:59 Intake Total 734 / 734 500 / 500 Output Total 1275 / 1275 300 / 300 Balance -541 / -541 200 / 200 Microbiology Past 72 Hours 04/20/20 23:20 Mucosa - Nose SARS-CoV-2 Antigen (Rapid) - Final Laboratory Results 04/21/20 16:40: POC Glucose 179 H 04/21/20 21:08: POC Glucose 158 H 04/22/20 05:25: WBC Cancelled, Corrected WBC Cancelled, RBC Cancelled, Hgb Cancelled, Hct Cancelled, MCV Cancelled, MCH Cancelled, MCHC Cancelled, RDW Std Deviation Cancelled, RDW Coeff of Geovanna Cancelled, Plt Count Cancelled, MPV Cancelled, Immature Gran % (Auto) Cancelled, Neut % (Auto) Cancelled, Lymph % (Auto) Cancelled, Rutherford % (Auto) Cancelled, Eos % (Auto) Cancelled, Baso % (Auto) Cancelled, Absolute Neuts (auto) Cancelled, Absolute Lymphs (auto) Cancelled, Total Counted Cancelled, Neutrophils % (Manual) Cancelled, Band Neutrophils % Cancelled, Lymphocytes % (Manual) Cancelled, Monocytes % (Manual) Cancelled, Eosinophils % (Manual) Cancelled, Basophils % (Manual) Cancelled, Metamyelocytes % Cancelled, Myelocytes % Cancelled, Promyelocytes % Cancelled, Blast Cells % Cancelled, Plasma Cell % (Manual) Cancelled, Other Cells % Cancelled, Nucleated RBC % Cancelled, Nucleated RBCs/100 WBC Cancelled, Differential Comment Cancelled, Diff Path Review Cancelled, Hypersegmented Neuts Cancelled, Atypical Lymphocytes Cancelled, Reactive Lymphocytes Cancelled, Smudge Cells Cancelled, Toxic Granulation Cancelled, Toxic Vacuolation Cancelled, Dohle Bodies Cancelled, Jesus Rods Cancelled, Platelet Estimate Cancelled, Plt Morphology Comment Cancelled, RBC Morphology Cancelled, Polychromasia Cancelled, Hypochromasia Cancelled, Poikilocytosis Cancelled, Basophilic Stippling Cancelled, Anisocytosis Cancelled, Microcytosis Cancelled, Macrocytosis Cancelled, Spherocytes Cancelled, Sickle Cells Cancelled, Target Cells Cancelled, Tear Drop Cells Cancelled, Ovalocytes Cancelled, Stomatocytes Cancelled, Fields-Rose Bodies Cancelled, [place] Cells Cancelled, Bite Cells Cancelled, Crenated Cell Cancelled, Acanthocytes (Spur) Cancelled, Rouleaux Cancelled, Schistocytes Cancelled 04/22/20 05:25: Sodium 141, Potassium 4.6, Chloride 110 H, Carbon Dioxide 25.0, Anion Gap 6, BUN 34 H, Creatinine 2.24 H, Estim Creat Clear Calc 21.56, Est GFR (MDRD) Af Amer 28 L, Est GFR (MDRD) Non-Af 23 L, BUN/Creatinine Ratio 15.2, Glucose 116 H, Calcium 7.7 L 04/22/20 06:56: POC Glucose 134 H 04/22/20 08:52: PT 38.0 H, INR 3.9 H* 04/22/20 08:52: WBC 9.0, RBC 2.83 L, Hgb 8.4 L, Hct 28.1 L, MCV 99.3 H, MCH 29.7, MCHC 29.9 L, RDW Std Deviation 65.2 H, RDW Coeff of Geovanna 18.0 H, Plt Count 147 L, MPV 10.3, Immature Gran % (Auto) 0.400, Neut % (Auto) 70.9 H, Lymph % (Auto) 19.3, Rutherford % (Auto) 5.7, Eos % (Auto) 3.3, Baso % (Auto) 0.4, Absolute Neuts (auto) 6.4, Absolute Lymphs (auto) 1.74, Nucleated RBC % 0.2, Platelet Estimate ADEQUATE, Hypochromasia 2+, Anisocytosis 1+, Macrocytosis RARE 04/22/20 11:42: POC Glucose 151 H Current Medications Acetaminophen (Acetaminophen 325 Mg Tablet) 650 mg PO Q6H PRN PRN PRN Reason: Pain Score 1-10/Temp > 100.7 F Last Admin: 04/21/20 21:03 Dose: 650 mg Documented by: Albuterol Sulfate (Albuterol 2.5 Mg/3 Ml Vial.Neb.) 2.5 mg INHALATION Q2H PRN PRN PRN Reason: sob/wheezing Allopurinol (Allopurinol 100 Mg Tablet) 100 mg PO BID [facility] Last Admin: 04/22/20 10:01 Dose: 100 mg Documented by: Carvedilol (Carvedilol 6.25 Mg Tablet) 6.25 mg PO BID [facility] Last Admin: 04/22/20 10:04 Dose: Not Given Documented by: Clopidogrel Bisulfate (Clopidogrel Bisulfate 75 Mg Tablet) 75 mg PO DAILY [facility] Last Admin: 04/22/20 10:02 Dose: 75 mg Documented by: Cyanocobalamin (Cyanocobalamin 500 Mcg Tablet) 1,000 mcg PO DAILY [facility] Last Admin: 04/22/20 10:01 Dose: 1,000 mcg Documented by: Dextrose (Dextrose 50%-Water 25 Gm/50 Ml Disp.Syrin) 0 gm IV X1 PRN; Protocol PRN Reason: Hypoglycemia Ferrous Sulfate (Ferrous S[facility]ate 325 Mg Tablet) [facility] Last Admin: 04/22/20 10:02 Dose: 325 mg Documented by: Furosemide (Furosemide 40 Mg/4 Ml Vial) 40 mg IV DAILY [facility] Last Admin: 04/22/20 10:04 Dose: Not Given Documented by: Gabapentin (Gabapentin 300 Mg Capsule) 300 mg PO BID [facility] Last Admin: 04/22/20 10:01 Dose: 300 mg Documented by: Glipizide (Glipizide 10 Mg Tablet) 10 mg PO DAILY [facility] Last Admin: 04/22/20 10:02 Dose: 10 mg Documented by: Glucagon (Glucagon 1 Mg/Ml Syringe) 1 mg IM .X1 PRN PRN Reason: Hypoglycemia Sodium Chloride () 250 mls @ 15 mls/hr IV .[id number] PRN PRN Reason: Saline Flush Sodium Chloride () 250 mls @ 15 mls/hr IV .[id number] PRN PRN Reason: Additional IVPB Infusion Insulin Human Lispro (Insulin Lispro 100 Unit/Ml Insuln.Pen) 0 unit SC [facility]; Protocol Last Admin: 04/22/20 11:43 Dose: 1 u Documented by: Melatonin (Melatonin 3 Mg Tablet) 3 mg PO QHS PRN PRN PRN Reason: INSOMNIA Last Admin: 04/21/20 21:03 Dose: 3 mg Documented by: Nitroglycerin (Nitroglycerin (Inpatient Use) 0.4 Mg Tab.Subl) 0.4 mg SUBLINGUAL Q5M PRN PRN Reason: CARDIAC/CHEST PAIN Last Admin: 04/21/20 06:14 Dose: 0.4 mg Documented by: Nitroglycerin (Nitroglycerin Oint 1 Inch Packet) 1 inch TD Q6 [facility] Last Admin: 04/22/20 11:50 Dose: Not Given Documented by: Pantoprazole Sodium (Pantoprazole Sodium 40 Mg Tablet) 40 mg PO DAILY [facility] Last Admin: 04/22/20 10:01 Dose: 40 mg Documented by: Potassium Chloride (Potassium Chloride 20 Meq Tablet) [facility] Last Admin: 04/22/20 10:02 Dose: 40 meq Documented by: Pravastatin Sodium (Pravastatin 80 Mg Tablet) 80 mg PO QHS [facility] Last Admin: 04/21/20 21:03 Dose: 80 mg Documented by: Prochlorperazine Edisylate (Prochlorperazine 10 Mg/2 Ml Vial) 5 mg IV Q4H PRN PRN PRN Reason: NAUSEA/VOMITING Last Admin: 04/21/20 08:33 Dose: 5 mg Documented by: Senna/Docusate Sodium (Senna/Docusate Sodium 1 Tablet) 2 tablet PO BID PRN PRN PRN Reason: Constipation Sertraline HCl (Sertraline 100 Mg Tablet) 100 mg PO DAILY [facility] Last Admin: 04/22/20 10:01 Dose: 100 mg Documented by: Sodium Chloride (0.9% Saline Lock 10 Ml Syringe) 10 - 40 ml IV UD PRN PRN Reason: SALINE FLUSH Last Admin: 04/21/20 16:46 Dose: 10 ml Documented by: Tizanidine HCl (Tizanidine Hcl 2 Mg Tablet) 4 mg PO Q6H PRN PRN PRN Reason: SPASMS Assessment/Plan Signed with Trinh this patient was seen in conjunction with LOVE Denis . I have independently interviewed and examined the patient and reviewed pertinent historical, laboratory, and other data. Please refer to LOVE Denis note for details of this patient's presentation, findings, and recommendations. I have reviewed LOVE Denis note and concur with documented findings. In brief, patient is a 70-year-old lady with multiple comorbidities admitted with progressive shortness of breath and assessment of acute on chronic congestive heart failure with reduced ejection fraction made admitted to a monitored bed with consultation placed to cardiology. Patient was also found to have elevated troponin on admission 04/22/2020; 10 seen admitted some improvement in her overall condition. Her kidney function however did worsen her lisinopril held adjusted Lasix dose Physical Examination: GENERAL: cooperative HEENT: Atraumatic; EYES; Anicteric, NECK; supple, normal thyroid, RESPIRATORY: Diminished to auscultation CARDIOVASCULAR: Regular S1 S2, GI: soft, normoactive bowel sounds, : No Renal angle tenderness; EXTREMITIES: No edema, no clubbing, MUSCULOSKELETAL: no muscle waisting NEURO: Awake; no lateralizing signs. SKIN: No Rash PSYCH; Flat affect Assessment: 1. Acute hypoxic respiratory failure 2. Acute on chronic congestive heart failure with reduced ejection fraction 3. Acute non-STEMI 4. Recent bilateral DVT on systemic anticoagulation with Coumadin 5. COPD exacerbation 6. Coronary artery disease 7. Peripheral arterial disease 8. Chronic kidney disease stage III with worsening kidney function 9. Anemia secondary to anemia of chronic disorder 10. Essential hypertension 11. Dyslipidemia 12. Diabetes mellitus type 2 13. Obesity with BMI of 33 14. DVT prophylaxis Recommendations: 1. I have discussed the results of my overview and impressions with the patient 2. Options for management were reviewed Inpatient E&M: [id number] [facility] Hosp L3
--- NOTE | 2020-04-22 14:55 | PCM.PN.CARD ---
Objective: Vital Signs Temp Pulse Resp BP Pulse Ox 98.3 F 76 18 98/31 L 96 04/22/20 11:45 04/22/20 11:50 04/22/20 11:45 04/22/20 11:50 04/22/20 11:45 Oxygen Flow Rate (L/min) 1 Oxygen Delivery Method Nasal Cannula Weight: 206 lb 8.994 oz Body Mass Index (BMI) 33.3 Intake and Output for Last 24 Hours 04/20/20 04/21/20 04/22/20 23:59 23:59 23:59 Intake Total 734 / 734 500 / 500 Output Total 1275 / 1275 300 / 300 Balance -541 / -541 200 / 200 General: Awake, Alert, Oriented x 3 HEENT: Atraumatic Oral: Moist Mucosa Neck: Supple Lungs: Clear to auscultation Cardiovascular: Regular Rhythm Abdomen: Soft Extremities: No edema Skin: No Rashes Psych/Mental Status: Appropriate 04/22/20 05:25: WBC Cancelled, Corrected WBC Cancelled, RBC Cancelled, Hgb Cancelled, Hct Cancelled, MCV Cancelled, MCH Cancelled, MCHC Cancelled, Plt Count Cancelled, MPV Cancelled, Immature Gran % (Auto) Cancelled, Neut % (Auto) Cancelled, Lymph % (Auto) Cancelled, [place] % (Auto) Cancelled, Eos % (Auto) Cancelled, Baso % (Auto) Cancelled, Absolute Neuts (auto) Cancelled, Total Counted Cancelled, Neutrophils % (Manual) Cancelled, Band Neutrophils % Cancelled, Lymphocytes % (Manual) Cancelled, Monocytes % (Manual) Cancelled, Eosinophils % (Manual) Cancelled, Basophils % (Manual) Cancelled, Metamyelocytes % Cancelled, Myelocytes % Cancelled, Promyelocytes % Cancelled, Blast Cells % Cancelled, Plasma Cell % (Manual) Cancelled, Other Cells % Cancelled, Nucleated RBC % Cancelled 04/22/20 05:25: Sodium 141, Potassium 4.6, Chloride 110 H, Carbon Dioxide 25.0, Anion Gap 6, BUN 34 H, Creatinine 2.24 H, Est GFR (MDRD) Af Amer 28 L, Est GFR (MDRD) Non-Af 23 L, BUN/Creatinine Ratio 15.2, Glucose 116 H, Calcium 7.7 L 04/22/20 08:52: PT 38.0 H, INR 3.9 H* 04/22/20 08:52: WBC 9.0, RBC 2.83 L, Hgb 8.4 L, Hct 28.1 L, MCV 99.3 H, MCH 29.7, MCHC 29.9 L, Plt Count 147 L, MPV 10.3, Immature Gran % (Auto) 0.400, Neut % (Auto) 70.9 H, Lymph % (Auto) 19.3, [place] % (Auto) 5.7, Eos % (Auto) 3.3, Baso % (Auto) 0.4, Absolute Neuts (auto) 6.4, Nucleated RBC % 0.2 Rhythm: EKG: ECHO: Stress Test: Cardiac Cath: PCI: CT Surgery: Holter monitor: EPS: PPM: CXR: Chest CT Scan: Medical Necessity - Tobacco Use Smoking Status: Former smoker Tobacco Use: Cigarettes Assessment/Plan 1. CHF: Improved with IV Lasix. However patient's creatinine went up and Lasix is on hold. Patient symptoms are significantly better. 2. Non-STEMI: Cardiac catheterization was discussed with the patient. Patient feels that she has gone through a lot in the last few months and prefers to wait a couple of months without undergoing coronary angiography. At this time we will treat her non-STEMI medically. Please refer to Dr. Rivera's note regarding this as well. Due to PVD she is not a straightforward candidate for coronary angiography as well. On top of it she has acute on chronic kidney injury as well. Explained to the patient that while it is reasonable to wait or just treat her CAD medically, if she has anginal symptoms again we can consider coronary angiography at that point. Patient said she will pay close attention to her symptoms and will let us know if things change.
[2020-04-22 16:45] LABS: Bedside Glucose 91 mg/dL (70-110)
[2020-04-22] MEDS: Carvedilol 6.25 MG Tablet PO (21:18)
[2020-04-22] MEDS: Pravastatin 80 MG Tablet PO (21:18)
[2020-04-22] MEDS: MELATONIN 3 MG TABLET PO (21:21)
[2020-04-22 21:25] LABS: Bedside Glucose 154 mg/dL (70-110)
[2020-04-23] VITALS (15 sets, daily range): BP systolic 94–121; BP diastolic 27–52; PULSE 64–85; RESP 18–22; TEMP 36.4–37.2; O2SAT 94–100
[2020-04-23 05:15] LABS: Hematocrit 26.5 % (37-47); Hemoglobin 7.8 g/dL (12.0-15.0); Mean Corp Hgb Conc 29.4 g/dL (32-36); Mean Corpuscular Hgb 29.2 pg (27.0-32.0); Mean Corpuscular Volume 99.3 fL (81-99); Mean Platelet Vol. 10.8 fl (6.2-12.0); Platelet Count 175 K/mm3 (150-450); RBC Distribution Width CV 17.6 % (11.6-14.6); RBC Distribution Width SD 64.5 fl (35.1-43.9); Red Blood Count 2.67 M/mm3 (4.2-5.4); White Blood Count 9.5 K/mm3 (4.4-11.0)
[2020-04-23 05:27] LABS: International Normalized Ratio 3.1; Prothrombin Time (Protime)PT. 31.5 SECONDS (11.7-14.9)
[2020-04-23 05:30] LABS: Anion Gap 7 (5-15); BUN 44 mg/dL (7-18); BUN/Creat Ratio 19.2 RATIO (10-20); Calcium,Total 7.9 mg/dL (8.5-10.1); Chloride 105 mmol/L (98-107); Creatinine, Serum 2.29 mg/dL (0.55-1.02); EST Glomerular Filtration Rate 22 mL/min (>60); Est Glom Filt Rate - Afr Amer 27 mL/min (>60); Estimated Creatinine Clearance 21.09 ml/min; Glucose 181 mg/dL (74-106); Potassium 5.4 mmol/L (3.5-5.1); Sodium Level 137 mmol/L (136-145)
[2020-04-23] MEDS: Insulin Lispro 100 UNIT/ML INSULN.PEN SC ×3 (06:48→16:13)
[2020-04-23 07:16] LABS: Bedside Glucose 199 mg/dL (70-110)
[2020-04-23] MEDS: Gabapentin 300 MG Capsule PO ×2 (08:55→21:26)
[2020-04-23] MEDS: Sertraline 100 MG Tablet PO (08:55)
[2020-04-23] MEDS: Allopurinol 100 MG Tablet PO ×2 (08:55→21:26)
[2020-04-23] MEDS: Ferrous Sulfate 325 MG Tablet PO ×2 (08:55→16:14)
[2020-04-23] MEDS: Cyanocobalamin 500 MCG Tablet 1000 MCG PO (08:55)
[2020-04-23] MEDS: Clopidogrel Bisulfate 75 MG Tablet PO (08:56)
[2020-04-23] MEDS: Pantoprazole Sodium 40 MG Tablet PO (08:56)
[2020-04-23] MEDS: proCHLORPERazine 10 MG/2 ML Vial 5 MG IV (10:57)
[2020-04-23] MEDS: 0.9% Saline Lock 10 ML Syringe IV (10:57)
--- NOTE | 2020-04-23 10:57 | NURSING ---
Computer froze, unable scan compazine and flush.
--- NOTE | 2020-04-23 11:00 | PCM.PROGNOTE ---
<Trinh Thayer VALVE REPAIRER RECLAMATION - Last Filed: 04/23/20 11:07> Patient Problems: Active and Suspected Problems (Last Reviewed 04/21/20 @ 01:[address] Harlan Shah MD) CHF exacerbation (Acute) Non-ST elevation myocardial infarction (NSTEMI) (Acute) CHF (congestive heart failure) (Acute) Cardiomyopathy (Acute) Subjective: Patient seen and examined. Reports some chest pressure this morning. Reports continued dyspnea with exertion. Patient complains of generally feeling unwell today and reports nausea. - Physical Exam Vitals/I&O's: Vital Signs Temp Pulse Resp BP Pulse Ox 98.1 F 64 18 103/44 L 97 04/23/20 08:45 04/23/20 08:45 04/23/20 08:45 04/23/20 08:45 04/23/20 08:45 Oxygen Flow Rate (L/min) 1 Oxygen Delivery Method Nasal Cannula Weight: 213 lb 13.574 oz Body Mass Index (BMI) 33.3 Intake and Output for Last 24 Hours 04/21/20 04/22/20 04/23/20 23:59 23:59 23:59 Intake Total 734 / 734 860 / 1100 240 / 240 Output Total 1275 / 1275 300 / 300 Balance -541 / -541 560 / 800 240 / 240 General: Alert, Oriented x3, Cooperative HEENT: Atraumatic, PERRLA, EOMI, Normocephalic Neck: Supple, No JVD, Negative Carotid Bruits Lungs: Clear to auscultation, Diminished Cardiovascular: Regular rate, No murmurs Abdomen: Bowel Sounds Present, Soft, Non Tender, Non-Distended Extremities: No clubbing, No cyanosis, No edema, Capillary Refill Less than 3 Seconds Skin: No rashes, No breakdown Musculoskeletal: No Tenderness to Palpation of Joints or Extremities Neurological: Cranial nerves II-XII grossly intact, Neuro grossly intact Psych/Mental Status: Normal Affect, Appropriate Microbiology Past 72 Hours 04/20/20 23:20 Mucosa - Nose SARS-CoV-2 Antigen (Rapid) - Final Laboratory Results 04/22/20 11:42: POC Glucose 151 H 04/22/20 16:32: POC Glucose 91 04/22/20 21:17: POC Glucose 154 H 04/23/20 04:56: PT 31.5 H, INR 3.1 04/23/20 04:56: WBC 9.5, RBC 2.67 L, Hgb 7.8 L, Hct 26.5 L, MCV 99.3 H, MCH 29.2, MCHC 29.4 L, RDW Std Deviation 64.5 H, RDW Coeff of Geovanna 17.6 H, Plt Count 175, MPV 10.8 04/23/20 04:56: Sodium 137, Potassium 5.4 H, Chloride 105, Carbon Dioxide 25.0, Anion Gap 7, BUN 44 H, Creatinine 2.29 H, Estim Creat Clear Calc 21.09, Est GFR (MDRD) Af Amer 27 L, Est GFR (MDRD) Non-Af 22 L, BUN/Creatinine Ratio 19.2, Glucose 181 H, Calcium 7.9 L 04/23/20 06:45: POC Glucose 199 H Current Medications Acetaminophen (Acetaminophen 325 Mg Tablet) 650 mg PO Q6H PRN PRN PRN Reason: Pain Score 1-10/Temp > 100.7 F Last Admin: 04/21/20 21:03 Dose: 650 mg Documented by: Albuterol Sulfate (Albuterol 2.5 Mg/3 Ml Vial.Neb.) 2.5 mg INHALATION Q2H PRN PRN PRN Reason: sob/wheezing Allopurinol (Allopurinol 100 Mg Tablet) 100 mg PO BID [facility] Last Admin: 04/23/20 08:55 Dose: 100 mg Documented by: Carvedilol (Carvedilol 6.25 Mg Tablet) 6.25 mg PO BID [facility] Last Admin: 04/23/20 08:51 Dose: Not Given Documented by: Clopidogrel Bisulfate (Clopidogrel Bisulfate 75 Mg Tablet) 75 mg PO DAILY [facility] Last Admin: 04/23/20 08:56 Dose: 75 mg Documented by: Cyanocobalamin (Cyanocobalamin 500 Mcg Tablet) 1,000 mcg PO DAILY [facility] Last Admin: 04/23/20 08:55 Dose: 1,000 mcg Documented by: Dextrose (Dextrose 50%-Water 25 Gm/50 Ml Disp.Syrin) 0 gm IV X1 PRN; Protocol PRN Reason: Hypoglycemia Ferrous Sulfate (Ferrous Sulfate 325 Mg Tablet) 325 mg PO BIDCM [facility] Last Admin: 04/23/20 08:55 Dose: 325 mg Documented by: Furosemide (Furosemide 40 Mg/4 Ml Vial) 40 mg IV DAILY [facility] Last Admin: 04/23/20 08:51 Dose: Not Given Documented by: Gabapentin (Gabapentin 300 Mg Capsule) 300 mg PO BID [facility] Last Admin: 04/23/20 08:55 Dose: 300 mg Documented by: Glucagon (Glucagon 1 Mg/Ml Syringe) 1 mg IM .X1 PRN PRN Reason: Hypoglycemia Sodium Chloride () 250 mls @ 15 mls/hr IV .[id number] PRN PRN Reason: Saline Flush Sodium Chloride () 250 mls @ 15 mls/hr IV .[id number] PRN PRN Reason: Additional IVPB Infusion Insulin Human Lispro (Insulin Lispro 100 Unit/Ml Insuln.Pen) 0 unit SC ACHS [facility]; Protocol Last Admin: 04/23/20 06:48 Dose: 2 u Documented by: Melatonin (Melatonin 3 Mg Tablet) 3 mg PO QHS PRN PRN PRN Reason: INSOMNIA Last Admin: 04/22/20 21:21 Dose: 3 mg Documented by: Nitroglycerin (Nitroglycerin (Inpatient Use) 0.4 Mg Tab.Subl) 0.4 mg SUBLINGUAL Q5M PRN PRN Reason: CARDIAC/CHEST PAIN Last Admin: 04/21/20 06:14 Dose: 0.4 mg Documented by: Nitroglycerin (Nitroglycerin Oint 1 Inch Packet) 1 inch TD Q6 [facility] Last Admin: 04/23/20 05:36 Dose: Not Given Documented by: Pantoprazole Sodium (Pantoprazole Sodium 40 Mg Tablet) 40 mg PO DAILY [facility] Last Admin: 04/23/20 08:56 Dose: 40 mg Documented by: Pravastatin Sodium (Pravastatin 80 Mg Tablet) 80 mg PO QHS [facility] Last Admin: 04/22/20 21:18 Dose: 80 mg Documented by: Prochlorperazine Edisylate (Prochlorperazine 10 Mg/2 Ml Vial) 5 mg IV Q4H PRN PRN PRN Reason: NAUSEA/VOMITING Last Admin: 04/23/20 10:57 Dose: 5 mg Documented by: Senna/Docusate Sodium (Senna/Docusate Sodium 1 Tablet) 2 tablet PO BID PRN PRN PRN Reason: Constipation Sertraline HCl (Sertraline 100 Mg Tablet) 100 mg PO DAILY [facility] Last Admin: 12/20/20 08:55 Dose: 100 mg Documented by: Sodium Chloride (0.9% Saline Lock 10 Ml Syringe) 10 - 40 ml IV UD PRN PRN Reason: SALINE FLUSH Last Admin: 04/23/20 10:57 Dose: 10 ml Documented by: Tizanidine HCl (Tizanidine Hcl 2 Mg Tablet) 4 mg PO Q6H PRN PRN PRN Reason: SPASMS Medical Necessity - Tobacco Use Smoking Status: Former smoker Tobacco Use: Cigarettes Assessment/Plan All Active Problems (Last Reviewed 04/21/20 @ 01:[address] Harlan Shah MD) CHF exacerbation (Acute) Non-ST elevation myocardial infarction (NSTEMI) (Acute) CHF (congestive heart failure) (Acute) Cardiomyopathy (Acute) NSTEMI (non-ST elevated myocardial infarction) (Resolved) 1. Acute hypoxic respiratory insufficiency secondary to acute on chronic heart failure with reduced ejection fraction-BNP 1977. Chest x-ray consistent with CHF. Echocardiogram September 2019 demonstrated an EF of 30%. Cardiology consulted. Strict I&O. Daily weight. Repeat echo demonstrates an EF of 25%, moderate tricuspid valve insufficiency, RVSP estimated to be 35 mmHg. Home oxygen testing prior to discharge. Discontinue IV Lasix. Transition to home oral Lasix regimen. 2. NSTEMI-cardiology following, recommending diagnostic cardiac catheterization however given patient's underlying extensive peripheral vascular disease with , patient was recommended to transfer to tertiary facility where she had a prior lower extremity bypass for further cardiac evaluation. Patient is not amendable to transfer at this time and wants to continue aggressive medical management. Continue statin, Plavix, carvedilol. Lisinopril discontinued. 3. Recent DVT bilaterally/supratherapeutic INR-resume Coumadin, trend INR. 4. Chronic COPD-no exacerbation. As needed albuterol aerosol. 5. Chronic kidney disease stage III-Lasix regimen reduced due to increasing creatinine. Trend BMP. 6. CAD-continue medical management as noted above. 7. Extensive peripheral vascular disease with history of left lower extremity bypass at [facility] 8.Chronic normocytic anemia-trend CBC. 9. Hypertension-stable, continue current regimen. 10. Hyperlipidemia- continue statin. 11. Type 2 diabetes cyecjuqz-Afpi-Nplli with sliding scale insulin. 12. Obesity-encouraged diet and lifestyle modifications. DVT prophylaxis-Coumadin Discharge plan: Anticipate discharge 04/24/2020 pending symptomatic improvement, will need home oxygen testing prior to discharge. This patient was seen by LOVE Denis under the supervision of Dr. Ybarra. <Esau Ybarra - Last Filed: 04/23/20 11:43> - Physical Exam Vitals/I&O's: Vital Signs Temp Pulse Resp BP Pulse Ox 98.1 F 66 18 103/44 L 97 04/23/20 08:45 04/23/20 11:00 04/23/20 08:45 04/23/20 08:45 04/23/20 08:45 Oxygen Flow Rate (L/min) 1 Oxygen Delivery Method Nasal Cannula Weight: 97 kg Body Mass Index (BMI) 33.3 Intake and Output for Last 24 Hours 04/21/20 04/22/20 04/23/20 23:59 23:59 23:59 Intake Total 734 / 734 860 / 1100 240 / 240 Output Total 1275 / 1275 300 / 300 Balance -541 / -541 560 / 800 240 / 240 Microbiology Past 72 Hours 04/20/20 23:20 Mucosa - Nose SARS-CoV-2 Antigen (Rapid) - Final Laboratory Results 04/22/20 11:42: POC Glucose 151 H 04/22/20 16:32: POC Glucose 91 04/22/20 21:17: POC Glucose 154 H 04/23/20 04:56: PT 31.5 H, INR 3.1 04/23/20 04:56: WBC 9.5, RBC 2.67 L, Hgb 7.8 L, Hct 26.5 L, MCV 99.3 H, MCH 29.2, MCHC 29.4 L, RDW Std Deviation 64.5 H, RDW Coeff of Geovanna 17.6 H, Plt Count 175, MPV 10.8 04/23/20 04:56: Sodium 137, Potassium 5.4 H, Chloride 105, Carbon Dioxide 25.0, Anion Gap 7, BUN 44 H, Creatinine 2.29 H, Estim Creat Clear Calc 21.09, Est GFR (MDRD) Af Amer 27 L, Est GFR (MDRD) Non-Af 22 L, BUN/Creatinine Ratio 19.2, Glucose 181 H, Calcium 7.9 L 04/23/20 06:45: POC Glucose 199 H Current Medications Acetaminophen (Acetaminophen 325 Mg Tablet) 650 mg PO Q6H PRN PRN PRN Reason: Pain Score 1-10/Temp > 100.7 F Last Admin: 04/21/20 21:03 Dose: 650 mg Documented by: Albuterol Sulfate (Albuterol 2.5 Mg/3 Ml Vial.Neb.) 2.5 mg INHALATION Q2H PRN PRN PRN Reason: sob/wheezing Allopurinol (Allopurinol 100 Mg Tablet) 100 mg PO BID [facility] Last Admin: 04/23/20 08:55 Dose: 100 mg Documented by: Carvedilol (Carvedilol 6.25 Mg Tablet) 6.25 mg PO BID [facility] Last Admin: 04/23/20 08:51 Dose: Not Given Documented by: Clopidogrel Bisulfate (Clopidogrel Bisulfate 75 Mg Tablet) 75 mg PO DAILY [facility] Last Admin: 04/23/20 08:56 Dose: 75 mg Documented by: Cyanocobalamin (Cyanocobalamin 500 Mcg Tablet) 1,000 mcg PO DAILY [facility] Last Admin: 04/23/20 08:55 Dose: 1,000 mcg Documented by: Dextrose (Dextrose 50%-Water 25 Gm/50 Ml Disp.Syrin) 0 gm IV X1 PRN; Protocol PRN Reason: Hypoglycemia Ferrous Sulfate (Ferrous Sulfate 325 Mg Tablet) 325 mg PO BIDCM [facility] Last Admin: 04/23/20 08:55 Dose: 325 mg Documented by: Furosemide (Furosemide 40 Mg Tablet) 40 mg PO BID@1000,1800 [facility] Gabapentin (Gabapentin 300 Mg Capsule) 300 mg PO BID [facility] Last Admin: 04/23/20 08:55 Dose: 300 mg Documented by: Glucagon (Glucagon 1 Mg/Ml Syringe) 1 mg IM .X1 PRN PRN Reason: Hypoglycemia Sodium Chloride () 250 mls @ 15 mls/hr IV .[id number] PRN PRN Reason: Saline Flush Sodium Chloride () 250 mls @ 15 mls/hr IV .[id number] PRN PRN Reason: Additional IVPB Infusion Insulin Human Lispro (Insulin Lispro 100 Unit/Ml Insuln.Pen) 0 unit [place] [facility]; Protocol Last Admin: 04/23/20 06:48 Dose: 2 u Documented by: Melatonin (Melatonin 3 Mg Tablet) 3 mg PO QHS PRN PRN PRN Reason: INSOMNIA Last Admin: 04/22/20 21:21 Dose: 3 mg Documented by: Nitroglycerin (Nitroglycerin (Inpatient Use) 0.4 Mg Tab.Subl) 0.4 mg SUBLINGUAL Q5M PRN PRN Reason: CARDIAC/CHEST PAIN Last Admin: 04/21/20 06:14 Dose: 0.4 mg Documented by: Nitroglycerin (Nitroglycerin Oint 1 Inch Packet) 1 inch TD Q6 [facility] Last Admin: 04/23/20 05:36 Dose: Not Given Documented by: Pantoprazole Sodium (Pantoprazole Sodium 40 Mg Tablet) 40 mg PO DAILY [facility] Last Admin: 04/23/20 08:56 Dose: 40 mg Documented by: Pravastatin Sodium (Pravastatin 80 Mg Tablet) 80 mg PO QHS [facility] Last Admin: 04/22/20 21:18 Dose: 80 mg Documented by: Prochlorperazine Edisylate (Prochlorperazine 10 Mg/2 Ml Vial) 5 mg IV Q4H PRN PRN PRN Reason: NAUSEA/VOMITING Last Admin: 04/23/20 10:57 Dose: 5 mg Documented by: Senna/Docusate Sodium (Senna/Docusate Sodium 1 Tablet) 2 tablet PO BID PRN PRN PRN Reason: Constipation Sertraline HCl (Sertraline 100 Mg Tablet) 100 mg PO DAILY [facility] Last Admin: 04/23/20 08:55 Dose: 100 mg Documented by: Sodium Chloride (0.9% Saline Lock 10 Ml Syringe) 10 - 40 ml IV UD PRN PRN Reason: SALINE FLUSH Last Admin: 04/23/20 10:57 Dose: 10 ml Documented by: Tizanidine HCl (Tizanidine Hcl 2 Mg Tablet) 4 mg PO Q6H PRN PRN PRN Reason: SPASMS Warfarin Sodium (Jantoven 2 Mg Tablet) 2 mg PO DAILY@1700 [facility] Assessment/Plan Signed with Trinh this patient was seen in conjunction with LOVE Denis . I have independently interviewed and examined the patient and reviewed pertinent historical, laboratory, and other data. Please refer to LOVE Denis note for details of this patient's presentation, findings, and recommendations. I have reviewed LOVE Denis note and concur with documented findings. In brief, patient is a 70-year-old lady with multiple comorbidities admitted with progressive shortness of breath and assessment of acute on chronic congestive heart failure with reduced ejection fraction made admitted to a monitored bed with consultation placed to cardiology. Patient was also found to have elevated troponin on admission 04/22/2020; seen admitted some improvement in her overall condition. Her kidney function however did worsen her lisinopril held adjusted Lasix dose 04/23/2020 patient seen. Complains of 1 week. No significant improvement in kidney function following adjustment of Lasix dose. Patient was offered left heart catheterization by cardiology she however declined at this point. Plan therefore is to manage her non-STEMI medically at this point Physical Examination: GENERAL: cooperative HEENT: Atraumatic; EYES; Anicteric, NECK; supple, normal thyroid, RESPIRATORY: Diminished to auscultation CARDIOVASCULAR: Regular S1 S2, GI: soft, normoactive bowel sounds, : No Renal angle tenderness; EXTREMITIES: No edema, no clubbing, MUSCULOSKELETAL: no muscle waisting NEURO: Awake; no lateralizing signs. SKIN: No Rash PSYCH; Flat affect Assessment: 1. Acute hypoxic respiratory failure 2. Acute on chronic congestive heart failure with reduced ejection fraction 3. Acute non-STEMI 4. Recent bilateral DVT on systemic anticoagulation with Coumadin 5. COPD exacerbation 6. Coronary artery disease 7. Peripheral arterial disease 8. Chronic kidney disease stage III with worsening kidney function 9. Anemia secondary to anemia of chronic disorder 10. Essential hypertension 11. Dyslipidemia 12. Diabetes mellitus type 2 13. Obesity with BMI of 33 14. DVT prophylaxis Recommendations: 1. I have discussed the results of my overview and impressions with the patient 2. Options for management were reviewed Inpatient E&M: [id number] Subs Hosp L2
[2020-04-23 11:45] LABS: Bedside Glucose 167 mg/dL (70-110)
--- NOTE | 2020-04-23 13:36 | PCM.PN.CARD ---
Subjectve: Patient had nausea earlier this morning and epistaxis. Nausea is better. She denies any significant shortness of breath or chest pain. Objective: Vital Signs Temp Pulse Resp BP Pulse Ox 98.1 F 66 18 103/44 L 97 04/23/20 08:45 04/23/20 11:00 04/23/20 08:45 04/23/20 08:45 04/23/20 08:45 Oxygen Flow Rate (L/min) 1 Oxygen Delivery Method Nasal Cannula Weight: 213 lb 13.574 oz Body Mass Index (BMI) 33.3 Intake and Output for Last 24 Hours 04/21/20 04/22/20 04/23/20 23:59 23:59 23:59 Intake Total 734 / 734 860 / 1100 480 / 480 Output Total 1275 / 1275 300 / 300 Balance -541 / -541 560 / 800 480 / 480 General: Awake, Alert, Oriented x 3 HEENT: Atraumatic Neck: Supple Lungs: Rales - Suman Bases Abdomen: Soft Extremities: No edema Skin: No Rashes Psych/Mental Status: Appropriate 04/23/20 04:56: PT 31.5 H, INR 3.1 04/23/20 04:56: WBC 9.5, RBC 2.67 L, Hgb 7.8 L, Hct 26.5 L, MCV 99.3 H, MCH 29.2, MCHC 29.4 L, Plt Count 175, MPV 10.8 04/23/20 04:56: Sodium 137, Potassium 5.4 H, Chloride 105, Carbon Dioxide 25.0, Anion Gap 7, BUN 44 H, Creatinine 2.29 H, Est GFR (MDRD) Af Amer 27 L, Est GFR (MDRD) Non-Af 22 L, BUN/Creatinine Ratio 19.2, Glucose 181 H, Calcium 7.9 L Rhythm: EKG: ECHO: Stress Test: Cardiac Cath: PCI: CT Surgery: Holter monitor: EPS: PPM: CXR: Chest CT Scan: Medical Necessity - Tobacco Use Smoking Status: Former smoker Tobacco Use: Cigarettes Assessment/Plan 1. CHF: Improved with IV Lasix. However patient's creatinine went up and Lasix is on hold. Patient symptoms are significantly better. 2. Non-STEMI: Cardiac catheterization was discussed with the patient. Patient feels that she has gone through a lot in the last few months and prefers to wait a couple of months without undergoing coronary angiography. At this time we will treat her non-STEMI medically. Please refer to Dr. Rivera's note regarding this as well. Due to PVD she is not a straightforward candidate for coronary angiography as well. On top of it she has acute on chronic kidney injury as well. Explained to the patient that while it is reasonable to wait or just treat her CAD medically, if she has anginal symptoms again we can consider coronary angiography at that point. Patient said she will pay close attention to her symptoms and will let us know if things change.
[2020-04-23] MEDS: Sodium Chloride 0.65% 1 SPRAY SPRAY.BTL 2 SPRAY NASAL (15:34)
[2020-04-23] MEDS: Jantoven 2 MG Tablet PO (16:16)
[2020-04-23 16:26] LABS: Bedside Glucose 191 mg/dL (70-110)
[2020-04-23] MEDS: Furosemide 40 MG Tablet PO (17:42)
[2020-04-23] MEDS: Carvedilol 6.25 MG Tablet PO (21:26)
[2020-04-23] MEDS: Pravastatin 80 MG Tablet PO (21:26)
[2020-04-23 21:41] LABS: Bedside Glucose 121 mg/dL (70-110)
[2020-04-24] VITALS (27 sets, daily range): BP systolic 97–144; BP diastolic 33–106; PULSE 63–83; RESP 16–25; TEMP 36.1–36.9; O2SAT 85–99
[2020-04-24] MEDS: MELATONIN 3 MG TABLET PO (00:09)
[2020-04-24 05:59] LABS: Hematocrit 25.1 % (37-47); Hemoglobin 7.6 g/dL (12.0-15.0); Mean Corp Hgb Conc 30.3 g/dL (32-36); Mean Corpuscular Hgb 29.9 pg (27.0-32.0); Mean Corpuscular Volume 98.8 fL (81-99); Mean Platelet Vol. 11.5 fl (6.2-12.0); Platelet Count 167 K/mm3 (150-450); RBC Distribution Width CV 17.3 % (11.6-14.6); RBC Distribution Width SD 62.3 fl (35.1-43.9); Red Blood Count 2.54 M/mm3 (4.2-5.4); White Blood Count 6.8 K/mm3 (4.4-11.0)
[2020-04-24 06:09] LABS: International Normalized Ratio 2.8; Prothrombin Time (Protime)PT. 29.2 SECONDS (11.7-14.9)
[2020-04-24 06:24] LABS: Anion Gap 6 (5-15); BUN 47 mg/dL (7-18); BUN/Creat Ratio 23.3 RATIO (10-20); Calcium,Total 8.3 mg/dL (8.5-10.1); Chloride 106 mmol/L (98-107); Creatinine, Serum 2.02 mg/dL (0.55-1.02); EST Glomerular Filtration Rate 26 mL/min (>60); Est Glom Filt Rate - Afr Amer 31 mL/min (>60); Estimated Creatinine Clearance 23.91 ml/min; Glucose 152 mg/dL (74-106); Potassium 5.1 mmol/L (3.5-5.1); Sodium Level 138 mmol/L (136-145)
[2020-04-24 07:05] LABS: Bedside Glucose 143 mg/dL (70-110)
[2020-04-24] MEDS: Ferrous Sulfate 325 MG Tablet PO ×2 (08:23→18:03)
--- NOTE | 2020-04-24 08:49 | PN.CARD_ITS ---
Subjectve: The patient is awake and alert. She states she is feeling better overall. She states that she has been through a lot and wants to continue medical therapy at this time. She states she is no calzada to undergo further evaluation with diagnostic cardiac catheterization. She wants to be able to recuperate at home for period of time and consider her options in the future. Objective: Vital Signs Temp Pulse Resp BP Pulse Ox 98.3 F 71 18 97/41 L 94 04/24/20 08:05 04/24/20 08:05 04/24/20 08:05 04/24/20 08:05 04/24/20 08:17 Oxygen Flow Rate (L/min) [ 2 AMBULATION with Oxygen] Oxygen Flow Rate (L/min) [ 0 AMBULATING on Room Air] Oxygen Flow Rate (L/min) [At 0 REST on Room Air] Oxygen Flow Rate (L/min) 3 Oxygen Delivery Method Room Air Weight: 211 lb 10.3 oz Body Mass Index (BMI) 33.3 Intake and Output for Last 24 Hours 04/22/20 04/23/20 04/24/20 23:59 23:59 23:59 Intake Total 860 / 1100 720 / 960 240 / 240 Output Total 300 / 300 300 / 300 Balance 560 / 800 720 / 660 -60 / -60 General: Awake, Alert, Oriented x 3, Cooperative, No Acute Distress, Obese HEENT: Atraumatic, Normocephalic, PERRL, EOMI, Sclera Non Icteric Neck: Supple, Good ROM, No JVD Lungs: Clear to auscultation Cardiovascular: Regular Rhythm, Normal S1, Normal S2 Abdomen: Bowel Sounds Present, Soft, Non Tender Extremities: No edema Neurological: No Focal Motor or Sensory Deficit Psych/Mental Status: Appropriate 04/24/20 05:15: PT 29.2 H, INR 2.8 04/24/20 05:15: WBC 6.8, RBC 2.54 L, Hgb 7.6 L, Hct 25.1 L, MCV 98.8, MCH 29.9, MCHC 30.3 L, Plt Count 167, MPV 11.5 04/24/20 05:15: Sodium 138, Potassium 5.1, Chloride 106, Carbon Dioxide 26.0, Anion Gap 6, BUN 47 H, Creatinine 2.02 H, Est GFR (MDRD) Af Amer 31 L, Est GFR (MDRD) Non-Af 26 L, BUN/Creatinine Ratio 23.3 H, Glucose 152 H, Calcium 8.3 L Rhythm: Sinus rhythm Interpretation Summary The study was technically difficult. Contrast injection was performed. Severe segmental systolic dysfunction (see wall motion). The estimated ejection fraction is 25 %. The left atrium is moderately enlarged. There is mild mitral annular calcification. Mild focal mitral valve calcification of the anterior leaflet. Trivial mitral valve insufficiency. Moderate (2+) eccentric tricuspid valve insufficiency. Trivial pulmonic valve insufficiency. Right ventricular systolic pressure estimated to be 35 mmHg. There is evidence of diastolic dysfunction. Medical Necessity - Tobacco Use Smoking Status: Former smoker Tobacco Use: Cigarettes Assessment/Plan 1. Acute non-ST segment elevation FL The patient presents with a recurrent acute non-ST segment elevation FL. She is continuing medical therapy. This has included antiplatelet therapy with clopidogrel/Plavix, she is on nitrates these which can be changed from topical to oral), she is already on beta-blockers, she is already on afterload reducing agents as tolerated depending upon her renal function and lipid-lowering agents. She has also been on chronic anticoagulant therapy. Ideally she would be considered for further evaluation with diagnostic cardiac catheterization. She would be considered at high risk for this procedure based upon her cardiovascular/noncardiovascular findings including her extensive peripheral vascular disease, her chronic renal insufficiency, her anemia, etc. In the past she has been recommended to have such a procedure performed at a tertiary care center. She was offered transfer last night to a tertiary care center for such evaluation. She declined. She wanted to remain at [facility] for continued medical management. 2. Ischemic mediated cardiomyopathy She does have an underlying cardiomyopathy. It is believed to be ischemic mediated. She has had chronic systolic mediated CHF. She presents now with acute on chronic systolic mediated CHF. She will continue medical therapy. This will include diuretic therapy. She did have a follow-up transthoracic echocardiogram. The results are as noted. Remains with diminished LV systolic function/LVEF. 3. Acute on chronic systolic mediated CHF And she does appear to have acute on chronic systolic mediated CHF. She will continue medical therapy. This is included diuretic therapy as well as her other agents such as nitrates, beta-blockers as deemed appropriate, and afterload reducing agents. 4. Hyperlipidemia She will continue medical management. 5. Hypertension Her blood pressure will need to be followed. Her medicines may need to be adjusted to try and maintain adequate blood pressure control. 6. Diabetes mellitus She will continue evaluation care per internal medicine. 7. Peripheral vascular disease She does have a history of extensive peripheral vascular disease. She states that she had a left antecubital fossa cutdown in the past for a remote diagnostic cardiac catheterization. She has had peripheral vascular surgery on her lower extremities especially the left which she states she is still healing from. In the past there has been concern as to whether or not her only potential access to her cardiovascular system would be through a right upper extremity approach. Her extensive peripheral vascular history has not raise concerns about performing cardiac catheterization and in the past it has been felt that this, along with her multiple comorbidities, places her at high risk for such a procedure and based upon the concerns of the need for peripheral vascular surgery support that she should have such a procedure performed at a tertiary care center. She was transferred to a tertiary care center in the past and unfortunately this type of procedure was not performed on her at that time reportedly because of the concerns of her extensive peripheral vascular disease process. 8. Chronic renal insufficiency She does have chronic renal insufficiency. This certainly has to be taken into consideration with IV contrast related procedures. 9. Anemia She is anemic. This may be secondary to her multiple medical issues. She does need to be monitored for any obvious other etiologies. Her H&H has declined. She should be considered for PRBC transfusion to increase her oxygen carrying capacity. Would have to be balanced with diuretic therapy to avoid volume overload. 10. COPD She does have a history of COPD. She will need continued valuation care per internal medicine. 11. Obesity Unfortunately she remains overweight. She states despite her best efforts to modify her diet, as she cannot perform any type of physical activity, she not bring her weight under better control. Comment: The patient's case has been discussed with the patient and previously with Dr. Sales of interventional cardiology. (Please see his previous progress note) This note was generated using a voice recognition system and there may be incorrect words, spelling or punctuation that were not noted when reviewing the office note prior to saving.
[2020-04-24] MEDS: Pantoprazole Sodium 40 MG Tablet PO (10:22)
[2020-04-24] MEDS: 0.9% Saline Lock 10 ML Syringe IV ×6 (10:22→21:09)
[2020-04-24] MEDS: Isosorbide Mononitrate 30 MG Tablet PO (10:22)
[2020-04-24] MEDS: Sertraline 100 MG Tablet PO (10:23)
[2020-04-24] MEDS: Cyanocobalamin 500 MCG Tablet 1000 MCG PO (10:23)
[2020-04-24] MEDS: Clopidogrel Bisulfate 75 MG Tablet PO (10:23)
[2020-04-24] MEDS: Furosemide 40 MG Tablet PO ×2 (10:23→18:15)
[2020-04-24] MEDS: Gabapentin 300 MG Capsule PO ×2 (10:23→21:08)
[2020-04-24] MEDS: Allopurinol 100 MG Tablet PO ×2 (10:23→21:08)
[2020-04-24] MEDS: Sodium Ferric Gluconat 250 MG in 0.9% Normal Saline 250 ML 135 MG IV (11:28)
[2020-04-24] MEDS: Insulin Lispro 100 UNIT/ML INSULN.PEN SC ×2 (11:33→21:08)
[2020-04-24 11:45] LABS: Bedside Glucose 196 mg/dL (70-110)
[2020-04-24] MEDS: Ondansetron 4 MG/2 ML Vial IV (11:51)
[2020-04-24 17:15] LABS: Bedside Glucose 135 mg/dL (70-110)
--- NOTE | 2020-04-24 17:30 | PN_ITS ---
Patient Problems: Active and Suspected Problems (Last Reviewed 04/21/20 @ 01:[address] aHrlan Shah MD) CHF exacerbation (Acute) Non-ST elevation myocardial infarction (NSTEMI) (Acute) CHF (congestive heart failure) (Acute) Cardiomyopathy (Acute) Subjective: Patient was seen and examined today, I talked with cardiology about her care today, patient has no complaints of any increased shortness of breath today or any chest pain. Cardiology suggested that she receive packed red blood cells due to her low hemoglobin. I have also given her an infusion of Venofer today and also I will repeat this tomorrow. - Physical Exam Vitals/I&O's: Vital Signs Temp Pulse Resp BP Pulse Ox 98.3 F 67 16 102/69 95 04/24/20 16:54 04/24/20 16:54 04/24/20 16:54 04/24/20 16:54 04/24/20 16:54 Oxygen Flow Rate (L/min) [ 2 AMBULATION with Oxygen] Oxygen Flow Rate (L/min) [ 0 AMBULATING on Room Air] Oxygen Flow Rate (L/min) [At 0 REST on Room Air] Oxygen Flow Rate (L/min) 2 Oxygen Delivery Method Nasal Cannula Weight: 96 kg Body Mass Index (BMI) 33.3 Intake and Output for Last 24 Hours 04/22/20 04/23/20 04/24/20 23:59 23:59 23:59 Intake Total 860 / 1100 720 / 960 630 / 630 Output Total 300 / 300 600 / 600 Balance 560 / 800 720 / 660 30 / 30 General: Alert, Oriented x3, Cooperative, No apparent distress HEENT: Atraumatic, PERRLA, EOMI, Normocephalic Oral: Moist Mucosa Neck: Supple, No JVD, Trachea Midline, Thyroid Normal Size and Texture Lungs: Clear to auscultation, No rhonchi, No wheeze, Diminished Cardiovascular: Regular rate, No murmurs Abdomen: Bowel Sounds Present, Soft, Non Tender, Non-Distended Extremities: No clubbing, No cyanosis, No edema, Capillary Refill Less than 3 Seconds Skin: No rashes, No breakdown Musculoskeletal: No Tenderness to Palpation of Joints or Extremities Neurological: Cranial nerves II-XII grossly intact, Motor Exam 5/5 strength throughout, Sensory exam intact to light touch and pain Psych/Mental Status: Normal Affect, Appropriate, Alert and oriented to time, place, person, mood and affect Laboratory Results 04/23/20 21:22: POC Glucose 121 H 04/24/20 05:15: PT 29.2 H, INR 2.8 04/24/20 05:15: WBC 6.8, RBC 2.54 L, Hgb 7.6 L, Hct 25.1 L, MCV 98.8, MCH 29.9, MCHC 30.3 L, RDW Std Deviation 62.3 H, RDW Coeff of Geovanna 17.3 H, Plt Count 167, MPV 11.5 04/24/20 05:15: Sodium 138, Potassium 5.1, Chloride 106, Carbon Dioxide 26.0, An ion Gap 6, BUN 47 H, Creatinine 2.02 H, Estim Creat Clear Calc 23.91, Est GFR (MDRD) Af Amer 31 L, Est GFR (MDRD) Non-Af 26 L, BUN/Creatinine Ratio 23.3 H, Glucose 152 H, Calcium 8.3 L 04/24/20 06:59: POC Glucose 143 H 04/24/20 10:20: Blood Type A POSITIVE, Antibody Screen NEGATIVE, Crossmatch See Detail 04/24/20 11:32: POC Glucose 196 H 04/24/20 16:57: POC Glucose 135 H Current Medications Acetaminophen (Acetaminophen 325 Mg Tablet) 650 mg PO Q6H PRN PRN PRN Reason: Pain Score 1-10/Temp > 100.7 F Last Admin: 04/21/20 21:03 Dose: 650 mg Documented by: Albuterol Sulfate (Albuterol 2.5 Mg/3 Ml Vial.Neb.) 2.5 mg INHALATION Q2H PRN PRN PRN Reason: sob/wheezing Allopurinol (Allopurinol 100 Mg Tablet) 100 mg PO BID [facility] Last Admin: 04/24/20 10:23 Dose: 100 mg Documented by: Carvedilol (Carvedilol 6.25 Mg Tablet) 6.25 mg PO BID [facility] Last Admin: 04/24/20 10:23 Dose: Not Given Documented by: Clopidogrel Bisulfate (Clopidogrel Bisulfate 75 Mg Tablet) 75 mg PO DAILY [facility] Last Admin: 04/24/20 10:23 Dose: 75 mg Documented by: Cyanocobalamin (Cyanocobalamin 500 Mcg Tablet) 1,000 mcg PO DAILY [facility] Last Admin: 04/24/20 10:23 Dose: 1,000 mcg Documented by: Dextrose (Dextrose 50%-Water 25 Gm/50 Ml Disp.Syrin) 0 gm IV X1 PRN; Protocol PRN Reason: Hypoglycemia Ferrous Sulfate (Ferrous Sulfate 325 Mg Tablet) 325 mg PO BIDCM [facility] Last Admin: 04/24/20 08:23 Dose: 325 mg Documented by: Furosemide (Furosemide 40 Mg Tablet) 40 mg PO BID@1000,1800 [facility] Last Admin: 04/24/20 10:23 Dose: 40 mg Documented by: Gabapentin (Gabapentin 300 Mg Capsule) 300 mg PO BID [facility] Last Admin: 04/24/20 10:23 Dose: 300 mg Documented by: Glucagon (Glucagon 1 Mg/Ml Syringe) 1 mg IM .X1 PRN PRN Reason: Hypoglycemia Sodium Chloride () 250 mls @ 15 mls/hr IV .[id number] PRN PRN Reason: Saline Flush Sodium Chloride () 250 mls @ 15 mls/hr IV .[id number] PRN PRN Reason: Additional IVPB Infusion Insulin Human Lispro (Insulin Lispro 100 Unit/Ml Insuln.Pen) 0 unit SC ACHS [facility]; Protocol Last Admin: 04/24/20 11:33 Dose: 2 u Documented by: Melatonin (Melatonin 3 Mg Tablet) 3 mg PO QHS PRN PRN PRN Reason: INSOMNIA Last Admin: 04/24/20 00:09 Dose: 3 mg Documented by: Nitroglycerin (Nitroglycerin (Inpatient Use) 0.4 Mg Tab.Subl) 0.4 mg SUBLINGUAL Q5M PRN PRN Reason: CARDIAC/CHEST PAIN Last Admin: 04/21/20 06:14 Dose: 0.4 mg Documented by: Ondansetron HCl (Ondansetron 4 Mg/2 Ml Vial) 4 mg IV Q6H PRN PRN PRN Reason: NAUSEA/VOMITING Last Admin: 04/24/20 11:51 Dose: 4 mg Documented by: Pantoprazole Sodium (Pantoprazole Sodium 40 Mg Tablet) 40 mg PO DAILY [facility] Last Admin: 04/24/20 10:22 Dose: 40 mg Documented by: Pravastatin Sodium (Pravastatin 80 Mg Tablet) 80 mg PO QHS [facility] Last Admin: 04/23/20 21:26 Dose: 80 mg Documented by: Senna/Docusate Sodium (Senna/Docusate Sodium 1 Tablet) 2 tablet PO BID PRN PRN PRN Reason: Constipation Sertraline HCl (Sertraline 100 Mg Tablet) 100 mg PO DAILY [facility] Last Admin: 04/24/20 10:23 Dose: 100 mg Documented by: Sodium Chloride (0.9% Saline Lock 10 Ml Syringe) 10 - 40 ml IV UD PRN PRN Reason: SALINE FLUSH Last Admin: 04/24/20 14:32 Dose: 10 ml Documented by: Sodium Chloride (Sodium Chloride 0.65% 1 [place].Btl) 2 spray NASAL TID PRN PRN PRN Reason: NASAL DRYNESS Last Admin: 04/23/20 15:34 Dose: 2 spray Documented by: Tizanidine HCl (Tizanidine Hcl 2 Mg Tablet) 4 mg PO Q6H PRN PRN PRN Reason: SPASMS Warfarin Sodium (Jantoven 2 Mg Tablet) 2 mg PO DAILY@1700 [facility] Last Admin: 04/23/20 16:16 Dose: 2 mg Documented by: Medical Necessity - Tobacco Use Smoking Status: Former smoker Tobacco Use: Cigarettes Assessment/Plan All Active Problems (Last Reviewed 04/21/20 @ 01:[address] Harlan Shah MD) CHF exacerbation (Acute) Non-ST elevation myocardial infarction (NSTEMI) (Acute) CHF (congestive heart failure) (Acute) Cardiomyopathy (Acute) NSTEMI (non-ST elevated myocardial infarction) (Resolved) #1 acute non-ST segment elevation [place]-treatment per cardiology, patient does not want to undergo any invasive testing at this time #2 acute on chronic systolic CHF-continue present treatment with IV Lasix and other medications as deemed appropriate by cardiology #3 ischemic cardiomyopathy #4 acute kidney injury on a backdrop of chronic kidney disease stage III- patient's creatinine is trending downward at this time #5 hyperlipidemia #6 essential hypertension #7 type 2 diabetes #8 acute hypoxia secondary to #2-patient is currently on 2 L via nasal cannula, this will be weaned if possible #9 chronic obstructive pulmonary disease #10 iron deficiency anemia-chronic, again patient will receive IV Venofer and will be given a blood transfusion, labs will be rechecked tomorrow #11 peripheral vascular disease #12 coagulopathy secondary to chronic Coumadin usage Inpatient E&M: [id number] [facility] Hosp L2
[2020-04-24] MEDS: Jantoven 2 MG Tablet PO (18:04)
[2020-04-24] MEDS: Furosemide 20 MG/2 ML VIAL IV (18:55)
[2020-04-24] MEDS: Pravastatin 80 MG Tablet PO (21:08)
[2020-04-24] MEDS: Carvedilol 6.25 MG Tablet PO (21:09)
[2020-04-24 21:30] LABS: Bedside Glucose 166 mg/dL (70-110)
[2020-04-25] VITALS (7 sets, daily range): BP systolic 105–117; BP diastolic 36–46; PULSE 66–75; RESP 18–24; TEMP 36.8–36.9; O2SAT 88–96
[2020-04-25] MEDS: Furosemide 20 MG/2 ML VIAL IV (01:28)
[2020-04-25] MEDS: 0.9% Saline Lock 10 ML Syringe IV (01:28)
[2020-04-25 06:07] LABS: Absolute Neutrophil Count 4.6 X10^3/uL (2.0-7.7); Basophil# 0.03 X10^3/uL; Basophil% 0.5 % (0-1); Eosinophil# 0.31 X10^3/uL; Eosinophils% 4.8 % (0-5); Hemoglobin 10.2 g/dL (12.0-15.0); Lymphocyte % 15.6 % (19-41); Mean Corp Hgb Conc 30.9 g/dL (32-36); Mean Corpuscular Hgb 29.2 pg (27.0-32.0); Mean Corpuscular Volume 94.6 fL (81-99); Monocyte# 0.45 X10^3/uL; NRBC Flagged by Analyzer 0 % (0-5); Neutrophil # 4.61 X10^3/uL (2.7-7.7); Neutrophil % 71.6 % (47-70); Platelet Count 176 K/mm3 (150-450); RBC Distribution Width CV 18.3 % (11.6-14.6); RBC Distribution Width SD 62.8 fl (35.1-43.9); Red Blood Count 3.49 M/mm3 (4.2-5.4); White Blood Count 6.4 K/mm3 (4.4-11.0)
[2020-04-25 06:35] LABS: Anion Gap 6 (5-15); BUN 51 mg/dL (7-18); BUN/Creat Ratio 24.6 RATIO (10-20); Calcium,Total 8.6 mg/dL (8.5-10.1); Chloride 103 mmol/L (98-107); Creatinine, Serum 2.07 mg/dL (0.55-1.02); EST Glomerular Filtration Rate 25 mL/min (>60); Est Glom Filt Rate - Afr Amer 30 mL/min (>60); Estimated Creatinine Clearance 23.34 ml/min; Glucose 167 mg/dL (74-106); Sodium Level 136 mmol/L (136-145)
[2020-04-25] MEDS: Insulin Lispro 100 UNIT/ML INSULN.PEN SC ×2 (06:49→11:40)
[2020-04-25 06:55] LABS: Bedside Glucose 166 mg/dL (70-110)
--- NOTE | 2020-04-25 06:58 | PCS.PANDOC ---
PANDEMIC DOCUMENTATION INITIATED: Date: 04/21/20 Time: 0110
[2020-04-25] MEDS: Allopurinol 100 MG Tablet PO (09:02)
[2020-04-25] MEDS: Ferrous Sulfate 325 MG Tablet PO (09:03)
[2020-04-25] MEDS: Gabapentin 300 MG Capsule PO (09:03)
[2020-04-25] MEDS: Furosemide 40 MG Tablet PO (09:03)
[2020-04-25] MEDS: Clopidogrel Bisulfate 75 MG Tablet PO (09:03)
[2020-04-25] MEDS: Pantoprazole Sodium 40 MG Tablet PO (09:03)
[2020-04-25] MEDS: Sertraline 100 MG Tablet PO (09:03)
[2020-04-25] MEDS: Cyanocobalamin 500 MCG Tablet 1000 MCG PO (09:03)
--- NOTE | 2020-04-25 10:03 | PN.CARD_ITS ---
Subjectve: The patient states she feels much better today after receiving her PRBCs. She feels that she has much more energy today. She does note she still has an element of chronic shortness of breath. Objective: Vital Signs Temp Pulse Resp BP Pulse Ox 98.2 F 71 18 105/36 L 96 04/25/20 09:00 04/25/20 09:00 04/25/20 09:00 04/25/20 09:00 04/25/20 09:00 Oxygen Flow Rate (L/min) [ 2 AMBULATION with Oxygen] Oxygen Flow Rate (L/min) [ 0 AMBULATING on Room Air] Oxygen Flow Rate (L/min) [At 0 REST on Room Air] Oxygen Flow Rate (L/min) 2 Oxygen Delivery Method Nasal Cannula Weight: 210 lb 15.718 oz Body Mass Index (BMI) 33.3 Intake and Output for Last 24 Hours 04/23/20 04/24/20 04/25/20 23:59 23:59 23:59 Intake Total 720 / 960 630 / 660 550 / 550 Output Total 1000 / 1625 1125 / 1125 Balance 720 / 660 -370 / -965 -575 / -575 General: Awake, Alert, Oriented x 3, Cooperative, No Acute Distress, Obese HEENT: Atraumatic, Normocephalic, PERRL, EOMI, Sclera Non Icteric Neck: Supple, Good ROM, No JVD Lungs: Clear to auscultation Cardiovascular: Regular Rhythm, Normal S1, Normal S2 Abdomen: Bowel Sounds Present, Soft Extremities: No edema Psych/Mental Status: Appropriate 04/25/20 05:25: WBC 6.4, RBC 3.49 L, Hgb 10.2 L, Hct 33.0 L, MCV 94.6, MCH 29.2, MCHC 30.9 L, Plt Count 176, MPV 11.0, Immature Gran % (Auto) 0.500, Neut % (Auto) 71.6 H, Lymph % (Auto) 15.6 L, [place] % (Auto) 7.0, Eos % (Auto) 4.8, Baso % (Auto) 0.5, Absolute Neuts (auto) 4.6, Nucleated RBC % 0 04/25/20 05:25: Sodium 136, Potassium 5.0, Chloride 103, Carbon Dioxide 27.0, Anion Gap 6, BUN 51 H, Creatinine 2.07 H, Est GFR (MDRD) Af Amer 30 L, Est GFR (MDRD) Non-Af 25 L, BUN/Creatinine Ratio 24.6 H, Glucose 167 H, Calcium 8.6 Rhythm: Sinus rhythm Medical Necessity - Tobacco Use Smoking Status: Former smoker Tobacco Use: Cigarettes Assessment/Plan 1. Acute non-ST segment elevation CO The patient presents with a recurrent acute non-ST segment elevation CO. She is continuing medical therapy. This has included antiplatelet therapy with clopidogrel/Plavix, he has been changed to oral nitrates, she is already on beta-blockers, she is already on afterload reducing agents as tolerated depending upon her renal function and lipid-lowering agents. She has also been on chronic anticoagulant therapy. Ideally she would be considered for further evaluation with diagnostic cardiac catheterization. She would be considered at high risk for this procedure based upon her cardiovascular/noncardiovascular findings including her extensive peripheral vascular disease, her chronic renal insufficiency, her anemia, etc. In the past she has been recommended to have such a procedure performed at a tertiary care center. She was offered transfer last night to a tertiary care center for such evaluation. She declined. She wanted to remain at [facility] for continued medical management. 2. Ischemic mediated cardiomyopathy She does have an underlying cardiomyopathy. It is believed to be ischemic mediated. She has had chronic systolic mediated CHF. She presents now with acute on chronic systolic mediated CHF. She will continue medical therapy. This will include diuretic therapy. She did have a follow-up transthoracic echocardiogram. The results are as noted. She remains with diminished LV systolic function/LVEF. Overall she states she does feel better after her medical therapy and her PRBCs. 3. Acute on chronic systolic mediated CHF And she does appear to have acute on chronic systolic mediated CHF. She will continue medical therapy. This is included diuretic therapy as well as her other agents such as nitrates, beta-blockers as deemed appropriate, and afterload reducing agents. 4. Hyperlipidemia She will continue medical management. 5. Hypertension Her blood pressure will need to be followed. Her medicines may need to be adjusted to try and maintain adequate blood pressure control. 6. Diabetes mellitus She will continue evaluation care per internal medicine. 7. Peripheral vascular disease She does have a history of extensive peripheral vascular disease. She states that she had a left antecubital fossa cutdown in the past for a remote diagnostic cardiac catheterization. She has had peripheral vascular surgery on her lower extremities especially the left which she states she is still healing from. In the past there has been concern as to whether or not her only potential access to her cardiovascular system would be through a right upper extremity approach. Her extensive peripheral vascular history has not raise concerns about performing cardiac catheterization and in the past it has been felt that this, along with her multiple comorbidities, places her at high risk for such a procedure and based upon the concerns of the need for peripheral vascular surgery support that she should have such a procedure performed at a tertiary care center. She was transferred to a tertiary care center in the past and unfortunately this type of procedure was not performed on her at that time r eportedly because of the concerns of her extensive peripheral vascular disease process. 8. Chronic renal insufficiency She does have chronic renal insufficiency. This certainly has to be taken into consideration with IV contrast related procedures. 9. Anemia She has received PRBCs. Her H&H has improved. She states she feels much better today. 10. COPD She does have a history of COPD. She will need continued valuation care per internal medicine. 11. Obesity Unfortunately she remains overweight. She states despite her best efforts to modify her diet, as she cannot perform any type of physical activity, she not bring her weight under better control. Comment: The patient's case has been discussed with the patient and previously with Dr. Sales of interventional cardiology. (Please see his previous progress note). The patient's case is also been discussed with Dr. Al. This note was generated using a voice recognition system and there may be incorrect words, spelling or punctuation that were not noted when reviewing the office note prior to saving.
[2020-04-25 11:46] LABS: Bedside Glucose 173 mg/dL (70-110)
--- NOTE | 2020-04-25 12:01 | DCINST_ITS ---
- Discharge Diagnoses Current Active Problems: Current Active and Chronic Problems (Last Reviewed 04/21/20 @ 01:[address] Harlan Shah MD) CHF exacerbation (Acute) Non-ST elevation myocardial infarction (NSTEMI) (Acute) Chronic kidney disease (Chronic) CHF (congestive heart failure) (Acute) Cardiomyopathy (Acute) History of femoropopliteal bypass (Chronic) Per Марина Mckee: She had aortobifemoral bypass in 1988 and had 4 surgeries in 3 days at that time: femorofemoral bypass as well as left below- knee popliteal cutdown and left DP cutdown as well. On 01/15/2019, he did right femoral endarterectomy with profundoplasty, aVF limb thrombectomy with stent grafting within the limb and balloon angioplasty of left ABF limb. On 09/15/2019 she had a left femoral endarterectomy bovine patch angioplasty left femoral to peroneal bypass with in situ great saphenous vein. The wound was difficult to close therefore left open. New onset of congestive heart failure (Chronic) History of non-ST elevation myocardial infarction (NSTEMI) (Chronic) COPD (chronic obstructive pulmonary disease) (Chronic) Anemia in chronic illness (Chronic) Essential hypertension (Chronic) Hyperlipidemia (Chronic) PVD (peripheral vascular disease) (Chronic) Diabetes mellitus, type II (Chronic) Obesity (Chronic) Depression (Chronic) GERD (gastroesophageal reflux disease) (Chronic) Decubitus ulcer of sacral region, stage 1 (Chronic) You will use the following diet at home:: Calorie/Carbohydrate Controlled (specify 1200, 1400, etc) - 1800 satnam diet Your food should be the consistency of: Regular Your liquids should be the consistency of: Regular/Thin Discharge Activity: Return to Normal Activity Weight Bearing Status: Full weight bearing Allergies/Adverse Reactions: Allergies aspirin [ASA] Adverse Reaction (Verified 04/20/20 23:00) Nausea also rash codeine Adverse Reaction (Verified 04/20/20 23:00) Nausea Medications to take at Discharge Gabapentin [Neurontin] 300 mg PO BID 06/27/19 Pantoprazole Sodium [Protonix] 40 mg PO DAILY 06/27/19 Pravastatin [Pravachol] 80 mg PO QHS 06/27/19 Sertraline HCl 100 mg PO DAILY 06/27/19 Tizanidine HCl 4 mg PO Q6H PRN PRN 06/27/19 Albuterol Aerosols [Ventolin Aerosols] 2.5 mg INHALATION TID PRN 09/28/19 Clopidogrel Bisulfate [Clopidogrel] 75 mg PO DAILY 09/28/19 Sulfacetamide Sodium [Sulf-10] 1 drp OPHTHALMIC (EYE) 4X/DAY PRN 09/28/19 Carvedilol [Coreg (Beta Mariela)] 6.25 mg PO BID #60 tab 10/08/19 allopurinol 100 mg tablet 100 mg PO BID 12/03/19 ferrous sulfate 325 mg (65 mg iron) tablet 325 mg PO BID 12/03/19 ascorbate calcium (vitamin C) 500 mg tablet 500 mg PO DAILY 03/23/20 furosemide 40 mg tablet 40 mg PO BID #180 tab 03/23/20 mecobalamin (vitamin B12) 1,000 mcg chewable tablet 1,000 mcg PO DAILY 03/23/20 Glipizide 5 mg PO DAILY #0 tab 04/25/20 Warfarin [Coumadin] 2 mg PO DAILY@1700 #30 tab 04/25/20 The following prescriptions were given: Warfarin [Coumadin] 2 mg PO DAILY@1700 #30 tab Transmission Status: Pending to [id number] Primary Care Physician: Milan Márquez MD [Primary Care Provider] - Please follow up with your Primary Care Physician in: in one week-get a repeat BMP (lab) drawn Test Results: Test results from this visit will be discussed in further detail at your follow- up appointment, if applicable. Please Follow Up With: Wagner Rivera MD When: in 3 weeks
--- NOTE | 2020-04-25 12:30 | CASEMGMT ---
Pt qualifies for 2L continuous home oxygen at this time and had stated preference for [facility] as she has had them in the past. Order signed and faxed to [facility] at this time. This RN CM to room to update pt and states no further needs for discharge. Pt declines need for HHC or OP therapy at this time. Pt is aware that she will need 2liters continuous at home, voices understanding. Pt voices no further questions/concerns/needs at this time. SStaten RN CM
--- NOTE | 2020-04-26 14:50 | CASEMGMT ---
LOIS KRAUSE Discharge F/U Phone Call LACE: 13 Strata: 3 Discharge date: 04/25/2020 Call date: 04/26/2020 Call time: [phone] Admission dx: Acute CHF exac w/ NSTEMI Pt states has been 'taking it easy' since discharge. Pt states no questions regarding d/c instructions or medications at this time. Pt states has f/u appt's scheduled and plans to keep. Pt states has her oxygen all set up and denies SOB at this time. Pt states no suggestions for [facility] at this time. Pt states 'You were all fantastic and you have [facility] beat! Carol, the nurse was great and Roderick was excellent, he would just stop in to check on me.' Pt voices no further questions/concerns/needs at this time. SStaten LOIS KRAUSE
--- NOTE | 2020-04-30 09:16 | PCM.DC.SUM ---
Discharge Date and Diagnosis - Problem List Patient Problems: Active and Suspected Problems (Last Reviewed 04/21/20 @ 01:[address] Harlan Shah MD) CHF exacerbation (Acute) Non-ST elevation myocardial infarction (NSTEMI) (Acute) CHF (congestive heart failure) (Acute) Cardiomyopathy (Acute) Date of Admission: 04/21/20 Date of Discharge: 04/25/20 - Primary Discharge Diagnosis Acute Problems: Active Problems (Last Reviewed 04/21/20 @ 01:[address] Harlan Shah MD) #1 acute non-ST segment elevation OR #2 acute on chronic systolic CHF #3 ischemic cardiomyopathy-ejection fraction 25% #4 acute kidney injury on a backdrop of chronic kidney disease stage III #5 hyperlipidemia #6 essential hypertension #7 type 2 diabetes #8 acute hypoxia secondary to #2 #9 chronic obstructive pulmonary disease #10 iron deficiency anemia-chronic #11 peripheral vascular disease #12 coagulopathy secondary to chronic Coumadin usage #13 mild pulmonary hypertension - Secondary Discharge Diagnosis Chronic Problems: Chronic Problems (Last Reviewed 04/21/20 @ 01:[address] Harlan Shah MD) Chronic kidney disease (Chronic) History of femoropopliteal bypass (Chronic) Per Марина Mckee: She had aortobifemoral bypass in 1988 and had 4 surgeries in 3 days at that time: femorofemoral bypass as well as left below-knee popliteal cutdown and left DP cutdown as well. On 01/15/2019, he did right femoral endarterectomy with profundoplasty, aVF limb thrombectomy with stent grafting within the limb and balloon angioplasty of left ABF limb. On 09/15/2019 she had a left femoral endarterectomy bovine patch angioplasty left femoral to peroneal bypass with in situ great saphenous vein. The wound was difficult to close therefore left open. New onset of congestive heart failure (Chronic) History of non-ST elevation myocardial infarction (NSTEMI) (Chronic) COPD (chronic obstructive pulmonary disease) (Chronic) Anemia in chronic illness (Chronic) Essential hypertension (Chronic) Hyperlipidemia (Chronic) PVD (peripheral vascular disease) (Chronic) Diabetes mellitus, type II (Chronic) Obesity (Chronic) Depression (Chronic) GERD (gastroesophageal reflux disease) (Chronic) Decubitus ulcer of sacral region, stage 1 (Chronic) Hospital Course and Treatment Operations: None Procedures: 2-D Echocardiogram Summary of Care Provided: The patient is a 70 year old F presented to the emergency room at [facility] with chief complaint of shortness of breath and some left-sided chest discomfort. Work-up in the emergency room included an EKG which showed sinus rhythm at 78 with nonspecific changes, there is T wave inversions in 1 and aVL and V3 through V6. Patient was given aerosol treatments due to past history of COPD and her breathing improved. Cardiology was contacted, chest x-ray showed evidence of pulmonary congestion and she was given IV Lasix. She was admitted to PCU where she was seen by cardiology who adjusted her medications. Patient's hemoglobin remained low and it was felt beneficial that she received 2 units of packed red blood cells, the etiology of her anemia was unknown. Patient had an echocardiogram performed which showed a reduced EF of 25% with mild pulmonary hypertension. On 04/25/2020, patient was felt to be stable for discharge home: On examination she appeared in good health and spirits, she does not appear to be in any distress. Vital signs as documented. Skin warm and dry and without overt rashes. Neck without JVD, thyroid appears normal, trachea is midline, neck is supple. Lungs clear, normal air movement was noted. Heart exam notable for regular rhythm, normal sounds and absence of murmurs, rubs or gallops. Abdomen unremarkable and without evidence of organomegaly, masses, or abdominal aortic enlargement, bowel sounds are present in all 4 quadrants, no abdominal tenderness was noted. Extremities nonedematous, no cyanosis was noted, no clubbing was noted. Neuro: Cranial nerves II through XII are grossly intact, no focal motor deficits were noted, sensation to light touch and pinprick is intact, motor exam 5/5 throughout. Psych: Patient is alert and oriented x3, she does not appear anxious or depressed, she does not appear agitated. Patient Problems: Active and Suspected Problems (Last Reviewed 04/21/20 @ 01:[address] Harlan Shah MD) CHF exacerbation (Acute) Non-ST elevation myocardial infarction (NSTEMI) (Acute) CHF (congestive heart failure) (Acute) Cardiomyopathy (Acute) - Physical Exam Vitals/I&O's: Vital Signs Temp Pulse Resp BP Pulse Ox 98.2 F 71 18 105/36 L 88 04/25/20 09:00 04/25/20 09:00 04/25/20 09:00 04/25/20 09:00 04/25/20 10:58 Oxygen Flow Rate (L/min) [ 2 AMBULATION with Oxygen] Oxygen Flow Rate (L/min) [ 0 AMBULATING on Room Air] Oxygen Flow Rate (L/min) [At 0 REST on Room Air] Oxygen Flow Rate (L/min) 2 Oxygen Delivery Method Nasal Cannula Weight: 95.7 kg Body Mass Index (BMI) 33.3 Discharge Activity: Return to Normal Activity Weight Bearing Status: Full weight bearing Home Medications: Medications to take at Discharge Gabapentin [Neurontin] 300 mg PO BID 06/27/19 Pantoprazole Sodium [Protonix] 40 mg PO DAILY 06/27/19 Pravastatin [Pravachol] 80 mg PO QHS 06/27/19 Sertraline HCl 100 mg PO DAILY 06/27/19 Tizanidine HCl 4 mg PO Q6H PRN PRN 06/27/19 Albuterol Aerosols [Ventolin Aerosols] 2.5 mg INHALATION TID PRN 09/28/19 Clopidogrel Bisulfate [Clopidogrel] 75 mg PO DAILY 09/28/19 Sulfacetamide Sodium [Sulf-10] 1 drp OPHTHALMIC (EYE) 4X/DAY PRN 09/28/19 Carvedilol [Coreg (Beta Mariela)] 6.25 mg PO BID #60 tab 10/08/19 allopurinol 100 mg tablet 100 mg PO BID 12/03/19 ferrous sulfate 325 mg (65 mg iron) tablet 325 mg PO BID 12/03/19 ascorbate calcium (vitamin C) 500 mg tablet 500 mg PO DAILY 03/23/20 furosemide 40 mg tablet 40 mg PO BID #180 tab 03/23/20 mecobalamin (vitamin B12) 1,000 mcg chewable tablet 1,000 mcg PO DAILY 03/23/20 Glipizide 5 mg PO DAILY #0 tab 04/25/20 Warfarin [Coumadin] 2 mg PO DAILY@1700 #30 tab 04/25/20 Following Prescriptions Were Given to Patient: Warfarin [Coumadin] 2 mg PO DAILY@1700 #30 tab Transmission Status: Received by [id number] Primary Care Physician: Milan Márquez MD [Primary Care Provider] - Please follow up with your Primary Care Physician in: in one week-get a repeat BMP (lab) drawn Please Follow Up With: Walter Santos [employer]INK[employer] INSPECTOR, [employer]INKLER INSPECTOR-C When: in 3 weeks Please Follow Up With: Milan Márquez MD Disposition: Home Minutes spent on discharge:: 32 Patient Condition:: Stable Medical Necessity - Tobacco Use Smoking Status: Former smoker Tobacco Use: Cigarettes Meaningful Use Info Meaningful Use Diagnoses (Choose all that apply): None applicable Inpatient E&M: 34073 Disch Hosp
== END 2020-04-25 14:51 | disposition home or self-care (01) | DRG 280 ==
LOC: ED 04-21 00:12 → PCU 04-21 00:33
PROVIDERS: Internal Medicine; Internal Medicine Cardiovascular Disease; Nurse Practitioner Family; Admitting Provider Hospitalist; Emergency Provider Emergency Medicine; PCP Family Medicine; Visit Provider Internal Medicine
DX: I21.4 Non-ST elevation (NSTEMI) myocardial infarction (principal); I50.23 Acute on chronic systolic (congestive) heart failure; J96.01 Acute respiratory failure with hypoxia; J98.11 Atelectasis; I82.403 Acute embolism and thrombosis of unspecified deep veins of lower extremity, bilateral; I13.0 Hypertensive heart and chronic kidney disease with heart failure and stage 1 through stage 4 chronic kidney disease, or unspecified chronic kidney disease; J44.1 Chronic obstructive pulmonary disease with (acute) exacerbation; N17.9 Acute kidney failure, unspecified; D68.9 Coagulation defect, unspecified; J44.9 Chronic obstructive pulmonary disease, unspecified; L89.151 Pressure ulcer of sacral region, stage 1; D63.8 Anemia in other chronic diseases classified elsewhere; E78.5 Hyperlipidemia, unspecified; F32.9 Major depressive disorder, single episode, unspecified; E66.9 Obesity, unspecified; I27.20 Pulmonary hypertension, unspecified; K21.9 Gastro-esophageal reflux disease without esophagitis; E11.51 Type 2 diabetes mellitus with diabetic peripheral angiopathy without gangrene; E11.22 Type 2 diabetes mellitus with diabetic chronic kidney disease; I25.10 Atherosclerotic heart disease of native coronary artery without angina pectoris; I07.1 Rheumatic tricuspid insufficiency; N18.30 Chronic kidney disease, stage 3 unspecified; Z66 Do not resuscitate; Z79.01 Long term (current) use of anticoagulants; Z86.718 Personal history of other venous thrombosis and embolism; Z87.891 Personal history of nicotine dependence; I25.5 Ischemic cardiomyopathy; D50.9 Iron deficiency anemia, unspecified; Z68.34 Body mass index [BMI] 34.0-34.9, adult; Z79.02 Long term (current) use of antithrombotics/antiplatelets; Z88.6 Allergy status to analgesic agent; Z83.3 Family history of diabetes mellitus; Z85.41 Personal history of malignant neoplasm of cervix uteri; Z90.710 Acquired absence of both cervix and uterus; I25.2 Old myocardial infarction; E11.42 Type 2 diabetes mellitus with diabetic polyneuropathy; E11.65 Type 2 diabetes mellitus with hyperglycemia; G47.33 Obstructive sleep apnea (adult) (pediatric); F41.9 Anxiety disorder, unspecified; E53.8 Deficiency of other specified B group vitamins; M10.9 Gout, unspecified
CPT/HCPCS: 36415; 71045; 80048; 82962; 83735; 83880; 84484; 85025; 85027; 85610; 86850; 86900; 86901; 86920; 86922; 87426; 93005; 93306; 94640; 97802; 97803; 99285; J7040; J7050; P9040; Q9957; A4216; C8929; J1940; J2405; J2916

== ENCOUNTER 2020-05-04 12:35 | Inpatient (IN) | payer MEDICARE, SELFPAY ==
[2020-04-21 01:20] VITALS: BMI 33.3
[2020-05-04] VITALS (32 sets, daily range): BP systolic 103–154; BP diastolic 46–76; PULSE 62–83; RESP 12–35; TEMP 36.2–36.6; O2SAT 84–99; BMI 31.6; BMI 31.7; BMI 30.5
--- NOTE | 2020-05-04 12:50 | EKG12_ITS ---
Test Reason : SOB Blood Pressure : / mmHG Vent. Rate : 078 BPM Atrial Rate : 078 BPM P-R Int : 174 ms QRS Dur : 094 ms QT Int : 458 ms P-R-T Axes : 051 039 200 degrees QTc Int : 522 ms Normal sinus rhythm T wave abnormality, consider anterolateral ischemia Prolonged QT Abnormal ECG Confirmed by RIC EISENBERG, BURAK ([id number]), telegraph editor ELDER LERNER ([id number]) on 05/08/2020 9:02:45 AM Referred By: BECKIE/RADHA Confirmed By:BURAK LARIOS MD
--- NOTE | 2020-05-04 12:54 | ED.DCSUM_ITS ---
- ER Visit Summary Date of Service: 05/04/20 Chief Complaint: Shortness of breath History of Present Illness: The patient is a [address] Milan Márquez. She was formally a patient of Dr. Rock and has been referred to Dr. Rivera. She was admitted April 21?April 25 for CHF. She had an echo that showed an ischemic cardiomyopathy with an ejection fraction of 25%. She had a non-ST elevation [place] with troponins as high as 20. She refused transfer to a tertiary care center for heart catheterization. Patient reports that she has shortness of breath that began again yesterday. Severe. Is worsened by exertion. There is no change with laying flat. She reports that she has a little cough that is productive of clear sputum. She denies any fever, chills, chest pain. She does complain of generalized weakness and diarrhea. However, she has not had diarrhea today. She denies any blood in her stools or black tarry stools. Physical Examination: Vitals: 97.9, 149/55, 80, 15, 96% on a 40% Ventimask.. General: Well-nourished and well-developed. Head: Normocephalic atraumatic. Neck: Supple, no lymphadenopathy. No JVD. Nontender. Cardiovascular: Regular rate and rhythm. 2 out of 6 systolic murmur. Respiratory: Moderate respiratory distress. Crackles at the bases bilaterally. Abdominal: Soft, nontender, nondistended, normal bowel sounds. No guarding, rebound, or peritoneal signs. Back: Nontender. Extremities: Nontender, no edema. Skin: Normal color, no rash. Neurologic: Alert and oriented ?3. Cranial nerves II through XII are intact. Normal strength and sensation. Psych: Normal affect. Test Results: EKG is sinus at 78 with T wave inversions in the precordial leads. Nonspecific ST changes. There is no significant change from April 22. CBC shows stable neutrophils 81 lymphocytes 13, immature granulocytes 1.0%. Chem-7 shows potassium 3.2, BUN of 51, creatinine 1.61, glucose 170. INR is 3.8. Troponin 0 0.12. BNP is 4607.8. Previously this year her BNP has been 399?3963. Lactic acid is 2.4. COVID-19 rapid antigen is positive. ABG shows a pH of 7.49 with a bicarb of 19.8, sat of 93%, PCO2 of 26. Chest x-ray shows increased interstitial markings, questionable atypical pneumonia. Emergency Department Course and Treatment: Patient was placed on BiPAP. She is resting more comfortably. She did complain of nausea was given Zofran IV. She was given a dose of Lasix IV. Treatment Plan: Patient be discussed with the hospitalist admitted for further evaluation and treatment. Disposition: Admitted in serious condition. Impression: 1. COVID-19 infection. 2. Hypoxia. 3. Respiratory failure on BiPAP. 4. Critical care time 33 minutes. 5, CHF. This note was generated with [employer] dictation software. It may contain incorrect words, spelling, and punctuation that were not noted in review of the chart prior to signing ED Disposition - Plan for ED Patient: Referrals: Milan Márquez MD [Primary Care Provider] -
--- NOTE | 2020-05-04 12:55 | RAD_ITS ---
STUDY: X-RAY CHEST REASON FOR EXAM: Female, 70 years old. INCREASED SOB, HYPOXIA -- PT HERE FOR SAME LAST WEEK- NEGATIVE COVID THEN -- HX OF COPD, HTN, [place] TECHNIQUE: Single AP portable view of the chest. COMPARISON: 04/20/2020 FINDINGS: No change in the reticular interstitial opacities throughout the lungs consistent with acute or chronic interstitial lung disease possibly atypical pneumonia. There is been interval resolution of the alveolar opacity lower left lung consistent with resolved left lower lobe pneumonia or atelectasis. There is no demonstrated pleural abnormality. Normal size heart. Normal mediastinum and mignon. Normal visualized pulmonary arteries. Normal visualized aortic arch and descending thoracic aorta. Normal visualized thoracic spine. Normal visualized ribs, clavicles, and shoulders. There is no demonstrated abnormality of the visualized soft tissue structures of the upper abdomen. RAD/Chest 1 View (Portable) IMPRESSION: No change in acute or chronic interstitial lung disease. Interval resolution of left lower lobe pneumonia or atelectasis. Electronically Signed: Clifton Garza MD at 13:17 EST Tel , Service support ,
[2020-05-04 13:01] LABS: Absolute Lymphocyte Count 0.77 X10^3/uL (0.83-4.51); Absolute Neutrophil Count 4.9 X10^3/uL (2.0-7.7); Basophil# 0.01 X10^3/uL; Basophil% 0.2 % (0-1); Eosinophil# 0.01 X10^3/uL; Eosinophils% 0.2 % (0-5); Hematocrit 42.4 % (37-47); Hemoglobin 13.2 g/dL (12.0-15.0); Lymphocyte # 0.77 X10^3/ul (4.0); Lymphocyte % 12.8 % (19-41); Mean Corp Hgb Conc 31.1 g/dL (32-36); Mean Corpuscular Hgb 29.2 pg (27.0-32.0); Mean Corpuscular Volume 93.8 fL (81-99); Mean Platelet Vol. 10.7 fl (6.2-12.0); Monocyte# 0.27 X10^3/uL; Monocyte% 4.5 % (0-10); NRBC Flagged by Analyzer 0 % (0-5); Neutrophil # 4.91 X10^3/uL (2.7-7.7); Neutrophil % 81.3 % (47-70); Platelet Count 315 K/mm3 (150-450); RBC Distribution Width CV 16.3 % (11.6-14.6); RBC Distribution Width SD 56.5 fl (35.1-43.9); Red Blood Count 4.52 M/mm3 (4.2-5.4)
[2020-05-04 13:12] LABS: Prothrombin Time (Protime)PT. 37.6 SECONDS (11.7-14.9)
[2020-05-04 13:18] LABS: Anion Gap 11 (5-15); BUN 51 mg/dL (7-18); BUN/Creat Ratio 31.7 RATIO (10-20); Calcium,Total 8.8 mg/dL (8.5-10.1); Chloride 104 mmol/L (98-107); Creatinine, Serum 1.61 mg/dL (0.55-1.02); EST Glomerular Filtration Rate 34 mL/min (>60); Est Glom Filt Rate - Afr Amer 41 mL/min (>60); Glucose 170 mg/dL (74-106); Potassium 3.2 mmol/L (3.5-5.1); Sodium Level 139 mmol/L (136-145)
[2020-05-04 13:24] LABS: BNP,B-Type NATRIURETIC PEPTIDE 4607.8 pg/mL (0-100)
[2020-05-04 13:26] LABS: International Normalized Ratio 3.8
[2020-05-04 13:28] LABS: Lactic Acid 2.4 mmol/L (0.4-1.9)
[2020-05-04 13:31] LABS: Allen Test Positive; Base Excess -4 mmol/L (-2 to +2); Bicarbonate 19.8 mmol/L (22-26); Blood Gas Specimen Type ART; FI02 50; Mode BiLevel; O2 Delivery Device BiPAP; PO2 59 mmHG (75-100); SITE L Radial; SO2 93 % (95-99); Total Carbon Dioxide 21 mmol/L; pCO2 25.8 mmHg (35-45); pH 7.49 (7.35-7.45)
[2020-05-04] MEDS: Ondansetron 4 MG/2 ML Vial IV (13:34)
--- NOTE | 2020-05-04 13:49 | NURSING ---
ICU COVID, CHF SURY
[2020-05-04] MEDS: Furosemide 40 MG/4 ML Vial IV (14:03)
--- NOTE | 2020-05-04 14:09 | NURSING ---
ICU 1
--- NOTE | 2020-05-04 14:25 | PCM.HP.STD ---
Problem List (1) CHF exacerbation Status: Acute Qualifiers: Heart failure type: combined systolic and diastolic Qualified Code(s): I50.43 - Acute on chronic combined systolic (congestive) and diastolic (congestive) heart failure (2) Non-ST elevation myocardial infarction (NSTEMI) Status: Inactive (3) Chronic kidney disease Status: Chronic (4) Cardiomyopathy Status: Acute (5) Traumatic intracranial hemorrhage Status: Inactive Comment: Transferred from [facility] ER to [facility]: neurologists discovered it was a calcium deposit on CT, not a brain bleed. (6) History of femoropopliteal bypass Status: Chronic Comment: Per Марина Mckee: She had aortobifemoral bypass in 1988 and had 4 surgeries in 3 days at that time: femorofemoral bypass as well as left below-knee popliteal cutdown and left DP cutdown as well. On 01/15/2019, he did right femoral endarterectomy with profundoplasty, aVF limb thrombectomy with stent grafting within the limb and balloon angioplasty of left ABF limb. On 09/15/2019 she had a left femoral endarterectomy bovine patch angioplasty left femoral to peroneal bypass with in situ great saphenous vein. The wound was difficult to close therefore left open. (7) History of non-ST elevation myocardial infarction (NSTEMI) Status: Chronic (8) Acute respiratory failure with hypoxia Status: Inactive (9) COPD (chronic obstructive pulmonary disease) Status: Chronic (10) Anemia in chronic illness Status: Chronic (11) Essential hypertension Status: Chronic (12) Hyperlipidemia Status: Chronic Qualifiers: (13) PVD (peripheral vascular disease) Status: Chronic (14) Diabetes mellitus, type II Status: Chronic (15) Obesity Status: Chronic Qualifiers: Body mass index: BMI 31.0-31.9 (16) Depression Status: Chronic (17) GERD (gastroesophageal reflux disease) Status: Chronic (18) COVID-19 Status: Acute (19) Acute respiratory failure Status: Acute History of Present Illness Date of Admission: 05/04/20 Ms Munoz is a 70 year old F who has had a recent admission here from 04/21/2020 and was discharged on 04/25/2020. At that time she presented for acute onset shortness of breath and was found by paramedics with an oxygen saturation of 92%. Admission she was found to have acute non-ST segment elevation myocardial infarction with a troponin elevation to 20 she was continued on medical therapy with Plavix and had been changed to oral nitrates she had already been on a beta-mariela and she was on an BRENDEN inhibitor. Cardiology did evaluate the patient and an echo was performed on 04/21/2020 she had severe segmental systolic dysfunction with an EF of 25%, moderate LA enlargement, moderate eccentric tricuspid valve insufficiency, and RV systolic pressure was estimated to be 32 mmHg. There is also evidence of diastolic dysfunction. Dr. Rivera recommended transfer to tertiary center but she declined and wanted to remain in [place] for medical management. She was discharged on 2 L nasal cannula and has been compliant with this per her report and has been on Lasix 40 mg twice daily which she reports compliance with as well. Today she presents with acute onset shortness of breath that started yesterday and has worsened since. She reports that her shortness of breath at this time is severe and is worse with exertion. She denies cough although is coughing during exam. She is brought in on a nonrebreather at 15 L/min and her sats were 96% they did wean her to 6 L nasal cannula and her oxygen saturation dropped to 84%. She was then placed on BiPAP but developed nausea so this was removed and she was put back on her Ventimask. She states that she did not go anywhere for He after discharge from the hospital. She states that she has been watching her fluid and salt intake. She denies fever, chills, change in taste or smell, myalgias, nausea, and reports chronic diarrhea. On my exam her sats were 96% on a nonrebreather and an FiO2 of 50%. She was afebrile, her blood pressures were within normal limits and she was tachypneic with respiratory rate anywhere from 20-31. Her CBC was overall unimpressive. An INR was done and was 3.8. Her ABG showed a pH of 7.49 with a PCO2 of 25.8 and a PO2 of 59. Her BMP shows mild hypokalemia with a potassium of 3.2. Her creatinine is mildly improved to 1.61 on discharge her creatinine was 2.07. She is a mildly elevated lactic acid with a normal anion gap her troponin is down to 0.120 from 20 but her BMP is 4607.8. Her EKG shows a note no acute ischemic changes but deep T wave inversions in the inferior and lateral leads. These are not new. Her chest x-ray shows interstitial prominence right greater than left. Past Medical History Past Medical History (Chronic Problems): Chronic Problems (Last Reviewed 04/21/20 @ 01:[address] Harlan Shah MD) Chronic kidney disease (Chronic) History of femoropopliteal bypass (Chronic) Per Марина Mckee: She had aortobifemoral bypass in 1988 and had 4 surgeries in 3 days at that time: femorofemoral bypass as well as left below-knee popliteal cutdown and left DP cutdown as well. On 01/15/2019, he did right femoral endarterectomy with profundoplasty, aVF limb thrombectomy with stent grafting within the limb and balloon angioplasty of left ABF limb. On 09/15/2019 she had a left femoral endarterectomy bovine patch angioplasty left femoral to peroneal bypass with in situ great saphenous vein. The wound was difficult to close therefore left open. New onset of congestive heart failure (Chronic) History of non-ST elevation myocardial infarction (NSTEMI) (Chronic) COPD (chronic obstructive pulmonary disease) (Chronic) Anemia in chronic illness (Chronic) Essential hypertension (Chronic) Hyperlipidemia (Chronic) PVD (peripheral vascular disease) (Chronic) Diabetes mellitus, type II (Chronic) Obesity (Chronic) Depression (Chronic) GERD (gastroesophageal reflux disease) (Chronic) Decubitus ulcer of sacral region, stage 1 (Chronic) Medical History: Medical History (Last Reviewed 05/04/20 @ 14:[address] Daphne Patel DO) New onset of congestive heart failure (Chronic) I50.9 History of non-ST elevation myocardial infarction (NSTEMI) (Chronic) I25.2 Acute respiratory failure with hypoxia (Inactive) J96.01 COPD (chronic obstructive pulmonary disease) (Chronic) J44.9 Anemia in chronic illness (Chronic) D63.8 Essential hypertension (Chronic) I10 Hyperlipidemia (Chronic) E78.5 PVD (peripheral vascular disease) (Chronic) I73.9 Diabetes mellitus, type II (Chronic) E11.9 Obesity (Chronic) E66.9 Depression (Chronic) F32.9 GERD (gastroesophageal reflux disease) (Chronic) K21.9 Decubitus ulcer of sacral region, stage 1 (Chronic) L89.151 Traumatic intracranial hemorrhage (Inactive) Onset Date: 11/15/19 S06.309A Transferred from [facility] ER to [facility]: neurologists discovered it was a calcium deposit on CT, not a brain bleed. NSTEMI (non-ST elevated myocardial infarction) (Resolved) I21.4 Allergies aspirin [ASA] Adverse Reaction (Verified 05/04/20 12:40) Nausea also rash codeine Adverse Reaction (Verified 05/04/20 12:40) Nausea Home Medications: Ambulatory Orders Medication Instructions Recorded Gabapentin [Neurontin] 300 mg PO BID 06/27/19 Pantoprazole Sodium [Protonix] 40 mg PO DAILY 06/27/19 Pravastatin [Pravachol] 80 mg PO QHS 06/27/19 Sertraline HCl 100 mg PO DAILY 06/27/19 Tizanidine HCl 4 mg PO QHS 06/27/19 Clopidogrel Bisulfate [Clopidogrel] 75 mg PO DAILY 09/28/19 allopurinol 100 mg tablet 100 mg PO BID 12/03/19 ferrous sulfate 325 mg (65 mg 325 mg PO BID 12/03/19 iron) tablet ascorbate calcium (vitamin C) 500 500 mg PO DAILY 03/23/20 mg tablet mecobalamin (vitamin B12) 1,000 1,000 mcg PO DAILY 03/23/20 mcg chewable tablet Amlodipine [Norvasc] 10 mg PO DAILY@199905/04/20 Carvedilol [Coreg (Beta Mariela)] 6.25 mg PO BID 05/04/20 Furosemide 40 mg PO BID 05/04/20 Glipizide 10 mg PO DAILY 05/04/20 Warfarin [Coumadin] 2 mg PO DAILY@1700 05/04/20 Surgical History: Surgical History (Last Reviewed 05/04/20 @ 14:[address] Daphne Patel DO) History of femoropopliteal bypass (Chronic) Z98.890 Per Марина Mckee: She had aortobifemoral bypass in 1988 and had 4 surgeries in 3 days at that time: femorofemoral bypass as well as left below-knee popliteal cutdown and left DP cutdown as well. On 01/15/2019, he did right femoral endarterectomy with profundoplasty, aVF limb thrombectomy with stent grafting within the limb and balloon angioplasty of left ABF limb. On 09/15/2019 she had a left femoral endarterectomy bovine patch angioplasty left femoral to peroneal bypass with in situ great saphenous vein. The wound was difficult to close therefore left open. Surgical History: appendectomy, cholecystectomy, hysterectomy Psychiatric History: No pertinent psych hx [employer] History: cervical cancer Lives: Alone Smoking Status: Former smoker Tobacco Use: Cigarettes Alcohol: None Drugs: None - *Family History Maternal History Items: Cancer - cervical Paternal History Items: Diabetes Review of Systems Constitutional: Reports: Weakness, Fatigue. Denies: Anorexia, Chills, Fever, Night Sweats, Malaise, Weight Change Eyes: Denies: Double vision, Drainage, Eyelid Inflammation, Pain, Redness, Vision Change HEENT: Denies: Difficulty Hearing, Difficulty Swallowing, Dysphasia, Ear Pain, Eye Pain, Hard of Hearing, Head Aches, Nasal bleeding, Nasal Congestion, Post Nasal Drip, Sinus Congestion, Sinus Drainage, Sore Throat, Visual Changes Cardiovascular: Reports: Orthopnea - Chronic two-pillow orthopnea. Denies: Chest Pain, Claudication, Chest Pressure, Chest Tightness, Edema, Heaviness, Light Headedness, Palpitations, Paroxysmal Noc. Dyspnea, Syncope Respiratory: Reports: Cough, Shortness of Breath, Shortness of breath at rest, Shortness of breath upon exertion. Denies: Hemoptysis, Pleuritic Pain, Sputum production, Wheezing Gastrointestinal: Reports: Abdominal Pain - Left lower quadrant, Diarrhea - Chronic. Denies: Constipation, Dyspepsia, Hematemesis, Hematochezia, Nausea, Melena, Vomiting Genitourinary: Denies: Dysuria, Frequency, Hematuria, Hesitancy, Incontinence, Nocturia, Retention, Urgency Musculoskeletal: Reports: Back Pain. Denies: Joint Pain, Joint stiffness, Joint swelling, Joint Tenderness, Muscle pain, Neck Pain Skin: Denies: Dryness, Jaundice, Lesions, Pruritis, Rash, Skin Changes, Wounds Neurological: Denies: Balance problems, Change in Speech, Slurred speech, Confusion, Difficulty swallowing, Focal weakness, Headaches, Incoordination, Numbness, Tingling, Tremor, Seizures Psychiatric: Denies: Anxiety, Depression Endocrine: Denies: Change in Body Habitus, Heat/ Cold Intolerance, Polydipsia, Polyuria Hematologic/ Lymphatic: Denies: Adenopathy, Easy Bruising, Easy Bleeding, Petechiae, Purpura VTE Information - Inpt Only VTE Present on Admission: No VTE Mechan Device Prophylaxis: None VTE Pharm Prophylaxis ordered?: No Reason prophylaxis not ordered:: Treatment Not Indicated - pt on coumadin and therapeutic - Physical Exam Vitals/I&O's: Vital Signs Temp Pulse Resp BP Pulse Ox 97.2 F L 80 20 H 129/71 H 91 05/04/20 14:05 05/04/20 14:05 05/04/20 14:05 05/04/20 14:05 05/04/20 14:05 Oxygen Flow Rate (L/min) 50 Oxygen Delivery Method Venturi Mask Weight: 89 kg Body Mass Index (BMI) 31.6 General: Alert, Oriented x3, Cooperative, No apparent distress, Well developed, Well nourished, - - Older white female, appears older than stated age, lying in bed with Ventimask in place in no acute respiratory distress HEENT: Atraumatic, PERRLA, EOMI, Normocephalic, EAC Clear Oral: No Gingival or Mucosal Lesions/ Ulcerations, Dry Mucosa, - - Mallampati 3, no thrush Neck: Supple, Negative Carotid Bruits, No Nodes, Trachea Midline, Thyroid Normal Size and Texture, JVD, Bilateral Lungs: No rhonchi, No wheeze, Rales - Inferior bilaterally to about half the lung field, - - Cough induced with deep inhalation Cardiovascular: Regular rate, Regular Rhythm, Normal S1, Normal S2, No murmurs, No Ectopic Activity, No rub noted, No Gallop Abdomen: Bowel Sounds Present, Soft, Non-Distended, Obese, Tender - Left lower quadrant laterally Extremities: No clubbing, No cyanosis, No edema, Capillary Refill Less than 3 Seconds, Peripheral Pulses Normal Skin: No rashes, No breakdown Musculoskeletal: No Tenderness to Palpation of Joints or Extremities, No Muscle Wasting Lymphatic: No Cervical, Supraclavicular, or Inguinal Adenopathy Neurological: Cranial nerves II-XII grossly intact, Neuro grossly intact, Muscle tone normal, Coordination normal Psych/Mental Status: Normal Affect, Appropriate Microbiology Past 72 Hours 05/04/20 12:56 Mucosa - Nose SARS-CoV-2 Antigen (Rapid) - Final SARS-CoV-2 (COVID 19) Laboratory Results 05/04/20 12:50: WBC 6.0, RBC 4.52, Hgb 13.2, Hct 42.4, MCV 93.8, MCH 29.2, MCHC 31.1 L, RDW Std Deviation 56.5 H, RDW Coeff of Geovanna 16.3 H, Plt Count 315, MPV 10.7, Immature Gran % (Auto) 1.000 H, Neut % (Auto) 81.3 H, Lymph % (Auto) 12.8 L, [place] % (Auto) 4.5, Eos % (Auto) 0.2, Baso % (Auto) 0.2, Absolute Neuts (auto) 4.9, Absolute Lymphs (auto) 0.77 L, Nucleated RBC % 0 05/04/20 12:50: PT 37.6 H, INR 3.8 H* 05/04/20 12:50: Sodium 139, Potassium 3.2 L, Chloride 104, Carbon Dioxide 24.0, Anion Gap 11, BUN 51 H, Creatinine 1.61 H, Estim Creat Clear Calc 30.00, Est GFR (MDRD) Af Amer 41 L, Est GFR (MDRD) Non-Af 34 L, BUN/Creatinine Ratio 31.7 H, Glucose 170 H, Calcium 8.8, Troponin I 0.120 H 05/04/20 12:50: Lactic Acid 2.4 H* 05/04/20 12:50: B-Natriuretic Peptide 4607.8 H 05/04/20 13:25: Specimen Type ART, Sample Site L Radial, pH 7.49 H, Bicarbonate Actual 19.8 L, Total CO2 21, Base Excess -4 L, O2 Saturation 93 L, O2 % 50, ABG pCO2 25.8 L, ABG pO2 59 L, Johnny Test Positive, O2 Delivery Device BiPAP, Vent Mode BiLevel Assessment/Plan All Active Problems (Last Reviewed 04/21/20 @ 01:[address] Harlan Shah MD) CHF exacerbation (Acute) Non-ST elevation myocardial infarction (NSTEMI) (Acute) CHF (congestive heart failure) (Acute) Cardiomyopathy (Acute) COVID-19 (Acute) Acute respiratory failure (Acute) NSTEMI (non-ST elevated myocardial infarction) (Resolved) Acute on chronic hypoxic respiratory failure secondary to decompensated HFrEF and Covid pneumonia -AirVo during the day and BiPAP at night -Wean oxygen as able -Lasix drip -Place Huynh -Recent echo with EF of 25% no need to repeat -Remdesivir and Decadron -Strict I's and O's -Daily weights -Carb controlled cardiac diet -Consult critical care medicine/pulmonary Hypokalemia -40 mEq potassium replacement -Repeat in a.m. -Mag in a.m. Lactic acidosis -Anion gap is not elevated -Suspect this is secondary to hypoxia on admission -No sepsis work-up needed at this point CKD stage III -Creatinine closely with diuresis -Baseline creatinine appears to be in the 2-2.25 range -Avoid nephrotoxins as able Decompensated HFrEF secondary to ischemic cardiomyopathy -With recent NSTEMI cardiology recommended transfer to tertiary center but patient declined -She is not a candidate for transfer at this point with positive coronavirus -BNP on admission was 4607.8 which is markedly elevated even compared with her admission BNP at her last hospitalization -Treatment as above -Continue Coreg -Consult cardiology Supratherapeutic INR -INR is 3.8 today -Hold Coumadin -PT INR daily Coronary artery disease with recent NSTEMI -Aspirin allergy, will continue Plavix -Continue statin Hypertension -Continue Norvasc -Continue Coreg Hyperlipidemia -Continue statin Peripheral vascular disease -Continue Plavix and Coumadin -Has had aorto femoropopliteal bypass in 1988 Depression -Continue Zoloft Obesity -Recommend weight loss GERD -Continue PPI DVT prophylaxis -Patient is fully anticoagulated with Coumadin CODE STATUS -Per discussion emergency department patient is full code Inpatient E&M: [id number] Init Hosp L3
--- NOTE | 2020-05-04 14:28 | PCS.PANDOC ---
PANDEMIC DOCUMENTATION INITIATED: Date: 05/04/2020 / Time: 1430
[2020-05-04] MEDS: dexAMETHasone 4 MG Tablet 6 MG PO (16:35)
[2020-05-04 16:58] LABS: Reflex Lactate? Y
[2020-05-04] MEDS: Gabapentin 300 MG Capsule PO (20:25)
[2020-05-04] MEDS: amLODIPine 10 MG Tablet PO (20:25)
[2020-05-04] MEDS: Carvedilol 6.25 MG Tablet PO (20:25)
[2020-05-04] MEDS: Allopurinol 100 MG Tablet PO (20:25)
[2020-05-04] MEDS: Pravastatin 80 MG Tablet PO (20:25)
--- NOTE | 2020-05-04 21:19 | CPS ---
pt sats dropping into low 80's on AIRVO. Flow and O2 increased but pt not recovering. Pt complaining of flow in nose and also states its hard for her to breathe through her nose because shes a mouth breather. Pt switched to Bipap and tolerating well. Pt states more comfortable.
[2020-05-04] MEDS: Furosemide 500 MG in Empty Viaflex 50 mL 1 EACH CONT INF ×2 (21:45→21:46)
[2020-05-05] VITALS (37 sets, daily range): BP systolic 97–118; BP diastolic 35–57; PULSE 53–67; RESP 12–269; TEMP 36–36.7; O2SAT 87–99
[2020-05-05 04:47] LABS: Absolute Lymphocyte Count 0.49 X10^3/uL (0.83-4.51); Absolute Neutrophil Count 3.6 X10^3/uL (2.0-7.7); Basophil# 0.01 X10^3/uL; Basophil% 0.2 % (0-1); Hematocrit 39.8 % (37-47); Hemoglobin 12.3 g/dL (12.0-15.0); Lymphocyte # 0.49 X10^3/ul (4.0); Lymphocyte % 11.3 % (19-41); Mean Corp Hgb Conc 30.9 g/dL (32-36); Mean Corpuscular Hgb 29.1 pg (27.0-32.0); Mean Corpuscular Volume 94.3 fL (81-99); Mean Platelet Vol. 11.6 fl (6.2-12.0); Monocyte# 0.19 X10^3/uL; Monocyte% 4.4 % (0-10); NRBC Flagged by Analyzer 0 % (0-5); Neutrophil % 82.9 % (47-70); POSITIVE DIFFERENTIAL YES; Platelet Count 281 K/mm3 (150-450); RBC Distribution Width CV 16.4 % (11.6-14.6); RBC Distribution Width SD 57.1 fl (35.1-43.9); Red Blood Count 4.22 M/mm3 (4.2-5.4); White Blood Count 4.3 K/mm3 (4.4-11.0)
[2020-05-05 04:49] LABS: Differential Indicated SCAN CRITERIA MET
[2020-05-05 04:58] LABS: International Normalized Ratio 4.1; Prothrombin Time (Protime)PT. 39.7 SECONDS (11.7-14.9)
[2020-05-05 05:07] LABS: ALB/GLOB Ratio 0.5 RATIO (0.9-2.4); AST(SGOT) 48 U/L (15-37); Alanine Aminotransfer ALT/SGPT 14 U/L (13-56); Albumin, Serum 2.3 g/dL (3.2-5.0); Alkaline Phosphatase 76 U/L (45-117); Anion Gap 10 (5-15); BUN 60 mg/dL (7-18); BUN/Creat Ratio 33.5 RATIO (10-20); Calcium,Total 8.3 mg/dL (8.5-10.1); Chloride 104 mmol/L (98-107); Creatinine, Serum 1.79 mg/dL (0.55-1.02); EST Glomerular Filtration Rate 30 mL/min (>60); Est Glom Filt Rate - Afr Amer 36 mL/min (>60); Estimated Creatinine Clearance 26.99 ml/min; Globulin 5.1 g/dL (2.2-4.2); Glucose 239 mg/dL (74-106); Magnesium 2.2 mg/dL (1.6-2.6); Phosphorus 4.9 mg/dL (2.5-4.9); Potassium 4.8 mmol/L (3.5-5.1); Protein, Total 7.4 g/dL (6.4-8.2); Sodium Level 137 mmol/L (136-145)
--- NOTE | 2020-05-05 05:35 | PCM.CON.CC ---
Reason for Consult Date of Consultation: 05/05/20 Reason for Consultation: Acute hypoxemic respiratory failure History of Present Illness: The patient is a 70-year-old female, with a history as outlined below, who presented to the emergency department on May 04 with complaints of shortness of breath, nonproductive cough, generalized weakness and diarrhea. The patient was just discharged from the hospital on April 25 after having been admitted for 4 days with a non-ST segment elevation IN and acute on chronic systolic heart failure. The patient does have a history of underlying cardiovascular disease with ischemic cardiomyopathy and peripheral vascular disease. On presentation to the emergency department, the patient was noted to be afebrile and hemodynamically stable. Laboratory evaluation revealed no evidence of a leukocytosis. Coagulation profile was notable for an INR of 3.8. Chemistry profile was notable for a potassium of 3.2 and creatinine of 1.61. Lactate was elevated to 2.4. Troponin was increased to 0.120. BNP was elevated to 4607. Coronavirus PCR was positive. The patient did receive IV diuretics and was started on remdesivir. Due to her tenuous respiratory status, the patient was placed on BiPAP therapy. She was subsequently admitted to the medical intensive care unit for further management. Overnight, the patient was maintained on a continuous Lasix infusion. This morning, the patient does report the presence of shortness of breath and a mild nonproductive cough. Past Medical History Past Medical History (Chronic Problems): Chronic Problems (Last Reviewed 05/04/20 @ 14:[address] Daphne Patel DO) Chronic kidney disease (Chronic) History of femoropopliteal bypass (Chronic) Per Марина Mckee: She had aortobifemoral bypass in 1988 and had 4 surgeries in 3 days at that time: femorofemoral bypass as well as left below-knee popliteal cutdown and left DP cutdown as well. On 01/15/2019, he did right femoral endarterectomy with profundoplasty, aVF limb thrombectomy with stent grafting within the limb and balloon angioplasty of left ABF limb. On 09/15/2019 she had a left femoral endarterectomy bovine patch angioplasty left femoral to peroneal bypass with in situ great saphenous vein. The wound was difficult to close therefore left open. New onset of congestive heart failure (Chronic) History of non-ST elevation myocardial infarction (NSTEMI) (Chronic) COPD (chronic obstructive pulmonary disease) (Chronic) Anemia in chronic illness (Chronic) Essential hypertension (Chronic) Hyperlipidemia (Chronic) PVD (peripheral vascular disease) (Chronic) Diabetes mellitus, type II (Chronic) Obesity (Chronic) Depression (Chronic) GERD (gastroesophageal reflux disease) (Chronic) Decubitus ulcer of sacral region, stage 1 (Chronic) Medical History: Medical History (Last Reviewed 05/04/20 @ 14:[address] Daphne Patel, DO) New onset of congestive heart failure (Chronic) I50.9 History of non-ST elevation myocardial infarction (NSTEMI) (Chronic) I25.2 Acute respiratory failure with hypoxia (Inactive) J96.01 COPD (chronic obstructive pulmonary disease) (Chronic) J44.9 Anemia in chronic illness (Chronic) D63.8 Essential hypertension (Chronic) I10 Hyperlipidemia (Chronic) E78.5 PVD (peripheral vascular disease) (Chronic) I73.9 Diabetes mellitus, type II (Chronic) E11.9 Obesity (Chronic) E66.9 Depression (Chronic) F32.9 GERD (gastroesophageal reflux disease) (Chronic) K21.9 Decubitus ulcer of sacral region, stage 1 (Chronic) L89.151 Traumatic intracranial hemorrhage (Inactive) Onset Date: 11/15/19 S06.309A Transferred from [facility] ER to [facility]: neurologists discovered it was a calcium deposit on CT, not a brain bleed. NSTEMI (non-ST elevated myocardial infarction) (Resolved) I21.4 Allergies aspirin [ASA] Adverse Reaction (Verified 05/04/20 12:40) Nausea also rash codeine Adverse Reaction (Verified 05/04/20 12:40) Nausea Home Medications: Ambulatory Orders Medication Instructions Recorded Gabapentin [Neurontin] 300 mg PO BID 06/27/19 Pantoprazole Sodium [Protonix] 40 mg PO DAILY 06/27/19 Pravastatin [Pravachol] 80 mg PO QHS 06/27/19 Sertraline HCl 100 mg PO DAILY 06/27/19 Tizanidine HCl 4 mg PO QHS 06/27/19 Clopidogrel Bisulfate [Clopidogrel] 75 mg PO DAILY 09/28/19 allopurinol 100 mg tablet 100 mg PO BID 12/03/19 ferrous sulfate 325 mg (65 mg 325 mg PO BID 12/03/19 iron) tablet ascorbate calcium (vitamin C) 500 500 mg PO DAILY 03/23/20 mg tablet mecobalamin (vitamin B12) 1,000 1,000 mcg PO DAILY 03/23/20 mcg chewable tablet Amlodipine [Norvasc] 10 mg PO DAILY@199905/04/20 Carvedilol [Coreg (Beta Mariela)] 6.25 mg PO BID 05/04/20 Furosemide 40 mg PO BID 05/04/20 Glipizide 5 mg PO DAILY 05/04/20 Warfarin [Coumadin] 2 mg PO DAILY@1700 05/04/20 Surgical History: Surgical History (Last Reviewed 05/04/20 @ 14:[address] Daphne Patel DO) History of femoropopliteal bypass (Chronic) Z98.890 Per Марина Mckee: She had aortobifemoral bypass in 1988 and had 4 surgeries in 3 days at that time: femorofemoral bypass as well as left below-knee popliteal cutdown and left DP cutdown as well. On 01/15/2019, he did right femoral endarterectomy with profundoplasty, aVF limb thrombectomy with stent grafting within the limb and balloon angioplasty of left ABF limb. On 09/15/2019 she had a left femoral endarterectomy bovine patch angioplasty left femoral to peroneal bypass with in situ great saphenous vein. The wound was difficult to close therefore left open. Surgical History: appendectomy, cholecystectomy, hysterectomy Psychiatric History: No pertinent psych hx [employer] History: cervical cancer Lives: Alone Smoking Status: Former smoker Tobacco Use: Cigarettes Alcohol: None Drugs: None - *Family History Maternal History Items: Cancer - cervical Paternal History Items: Diabetes Review of Systems Constitutional: Reports: Malaise, Weakness, Fatigue Eyes: Denies: Blurred vision, Double vision HEENT: Denies: Head Aches, Sinus Congestion, Sinus Drainage Cardiovascular: Denies: Chest Pain, Palpitations Respiratory: Reports: Cough, Shortness of Breath Gastrointestinal: Reports: Diarrhea Genitourinary: Denies: Dysuria Musculoskeletal: Denies: Joint Pain, Joint Tenderness Skin: Denies: Rash, Wounds Neurological: Denies: Numbness, Tingling, Focal weakness Psychiatric: Denies: Anxiety, Depression, Homicidal Ideations, Suicidal Ideations Hematologic/ Lymphatic: Denies: Easy Bruising, Easy Bleeding Patient Problems: Active and Suspected Problems (Last Reviewed 05/04/20 @ 14:[address] Daphne Patel, DO) CHF exacerbation (Acute) Non-ST elevation myocardial infarction (NSTEMI) (Acute) Cardiomyopathy (Acute) COVID-19 (Acute) Acute respiratory failure (Acute) Objective: The patient's most recent lab work, culture data and imaging studies have all been personally reviewed. Surface echocardiogram from April 2020 revealed severe segmental systolic dysfunction with an ejection fraction of 25%. Right ventricular systolic pressure was estimated to be 35 mmHg. Coronavirus PCR was positive on May 04. - Physical Exam Vitals/I&O's: Vital Signs Temp Pulse Resp BP Pulse Ox 96.8 F L 62 23 H 105/50 L 93 05/05/20 00:00 05/05/20 05:00 05/05/20 05:00 05/05/20 05:00 05/05/20 05:00 Oxygen Flow Rate (L/min) 30 Oxygen Delivery Method Bi-pap Weight: 189 lb 6.033 oz Body Mass Index (BMI) 30.5 Intake and Output for Last 24 Hours 05/03/20 05/04/20 05/05/20 23:59 23:59 23:59 Intake Total 490.02 / 490.02 Output Total 700 / 700 Balance -209.98 / -209.98 General: Alert, Cooperative, - - BiPAP currently in place. HEENT: Atraumatic, PERRLA, Normocephalic Oral: Dry Mucosa Neck: Supple, No Nodes, Trachea Midline Lungs: Diminished, Rales Cardiovascular: Regular rate, Regular Rhythm Abdomen: Bowel Sounds Present, Soft, Non Tender, Obese Extremities: No clubbing, No cyanosis, No edema Skin: No breakdown Musculoskeletal: No Muscle Wasting Lymphatic: No Cervical, Supraclavicular, or Inguinal Adenopathy Neurological: Cranial nerves II-XII grossly intact, Neuro grossly intact Psych/Mental Status: Normal Affect, Appropriate Labs (Last 48 Hours) 05/04/20 05/04/20 05/04/20 12:50 12:50 12:50 WBC 6.0 RBC 4.52 Hgb 13.2 Hct 42.4 MCV 93.8 MCH 29.2 MCHC 31.1 L RDW Std Deviation 56.5 H RDW Coeff of Geovanna 16.3 H Plt Count 315 MPV 10.7 Immature Gran % (Auto) 1.000 H Neut % (Auto) 81.3 H Lymph % (Auto) 12.8 L Coles % (Auto) 4.5 Eos % (Auto) 0.2 Baso % (Auto) 0.2 Absolute Neuts (auto) 4.9 Absolute Lymphs (auto) 0.77 L Nucleated RBC % 0 Diff Path Review PT 37.6 H INR 3.8 H* Specimen Type Sample Site pH Bicarbonate Actual Total CO2 Base Excess O2 Saturation O2 % ABG pCO2 ABG pO2 Johnny Test O2 Delivery Device Vent Mode Sodium 139 Potassium 3.2 L Chloride 104 Carbon Dioxide 24.0 Anion Gap 11 BUN 51 H Creatinine 1.61 H Estim Creat Clear Calc 30.00 Est GFR (MDRD) Af Amer 41 L Est GFR (MDRD) Non-Af 34 L BUN/Creatinine Ratio 31.7 H Glucose 170 H Lactic Acid Calcium 8.8 Phosphorus Magnesium Total Bilirubin AST ALT Alkaline Phosphatase Troponin I 0.120 H B-Natriuretic Peptide Total Protein Albumin Globulin Albumin/Globulin Ratio COVID-19 (LIZ) 05/04/20 05/04/20 05/04/20 12:50 12:50 13:25 WBC RBC Hgb Hct MCV MCH MCHC RDW Std Deviation RDW Coeff of Geovanna Plt Count MPV Immature Gran % (Auto) Neut % (Auto) Lymph % (Auto) Coles % (Auto) Eos % (Auto) Baso % (Auto) Absolute Neuts (auto) Absolute Lymphs (auto) Nucleated RBC % Diff Path Review PT INR Specimen Type ART Sample Site L Radial pH 7.49 H Bicarbonate Actual 19.8 L Total CO2 21 Base Excess -4 L O2 Saturation 93 L O2 % 50 ABG pCO2 25.8 L ABG pO2 59 L Johnny Test Positive O2 Delivery Device BiPAP Vent Mode BiLevel Sodium Potassium Chloride Carbon Dioxide Anion Gap BUN Creatinine Estim Creat Clear Calc Est GFR (MDRD) Af Amer Est GFR (MDRD) Non-Af BUN/Creatinine Ratio Glucose Lactic Acid 2.4 H* Calcium Phosphorus Magnesium Total Bilirubin AST ALT Alkaline Phosphatase Troponin I B-Natriuretic Peptide 4607.8 H Total Protein Albumin Globulin Albumin/Globulin Ratio COVID-19 (LIZ) 05/04/20 05/05/20 05/05/20 20:40 04:30 04:30 WBC 4.3 L RBC 4.22 Hgb 12.3 Hct 39.8 MCV 94.3 MCH 29.1 MCHC 30.9 L RDW Std Deviation 57.1 H RDW Coeff of Geovanna 16.4 H Plt Count 281 MPV 11.6 Immature Gran % (Auto) 1.200 H Neut % (Auto) 82.9 H Lymph % (Auto) 11.3 L Coles % (Auto) 4.4 Eos % (Auto) 0.0 Baso % (Auto) 0.2 Absolute Neuts (auto) 3.6 Absolute Lymphs (auto) 0.49 L Nucleated RBC % 0 Diff Path Review May foll PT INR Specimen Type Sample Site pH Bicarbonate Actual Total CO2 Base Excess O2 Saturation O2 % ABG pCO2 ABG pO2 Johnny Test O2 Delivery Device Vent Mode Sodium 137 Potassium 4.8 Chloride 104 Carbon Dioxide 23.0 Anion Gap 10 BUN 60 H Creatinine 1.79 H Estim Creat Clear Calc 26.99 Est GFR (MDRD) Af Amer 36 L Est GFR (MDRD) Non-Af 30 L BUN/Creatinine Ratio 33.5 H Glucose 239 H Lactic Acid Calcium 8.3 L Phosphorus 4.9 Magnesium 2.2 Total Bilirubin 0.50 AST 48 H ALT 14 Alkaline Phosphatase 76 Troponin I B-Natriuretic Peptide Total Protein 7.4 Albumin 2.3 L Globulin 5.1 H Albumin/Globulin Ratio 0.5 L COVID-19 (LIZ) Detected 05/05/20 05/05/20 04:30 04:30 WBC RBC Hgb Hct MCV MCH MCHC RDW Std Deviation RDW Coeff of Geovanna Plt Count MPV Immature Gran % (Auto) Neut % (Auto) Lymph % (Auto) Coles % (Auto) Eos % (Auto) Baso % (Auto) Absolute Neuts (auto) Absolute Lymphs (auto) Nucleated RBC % Diff Path Review PT 39.7 H INR 4.1 H* Specimen Type Sample Site pH Bicarbonate Actual Total CO2 Base Excess O2 Saturation O2 % ABG pCO2 ABG pO2 Johnny Test O2 Delivery Device Vent Mode Sodium Potassium Chloride Carbon Dioxide Anion Gap BUN Creatinine Estim Creat Clear Calc Est GFR (MDRD) Af Amer Est GFR (MDRD) Non-Af BUN/Creatinine Ratio Glucose Lactic Acid Calcium Phosphorus Magnesium Total Bilirubin AST ALT Alkaline Phosphatase Troponin I B-Natriuretic Peptide 3726.0 H Total Protein Albumin Globulin Albumin/Globulin Ratio COVID-19 (LIZ) Microbiology 05/04/20 12:56 Mucosa - Nose SARS-CoV-2 Antigen (Rapid) - Final SARS-CoV-2 (COVID 19) Clinical Impression(s) from Imaging Studies Chest X-Ray 05/04/20 12:55 IMPRESSION: No change in acute or chronic interstitial lung disease. Interval resolution of left lower lobe pneumonia or atelectasis. Electronically Signed: Clifton Garza MD at 13:17 EST Tel , Service support , Chest X-Ray 05/05/20 05:55 IMPRESSION: Chronic interestitial changes. Additional airspace the likely representing pneumonia, similar in severity to the previous study . at 0507 Reported and signed by: Barry Alejo MD Electronically Signed: Barry Alejo MD at 5:06 EST Tel , Service support , Current Medications Acetaminophen (Acetaminophen 325 Mg Tablet) 650 mg PO Q6H PRN PRN PRN Reason: Pain Score 1-10/Temp > 100.7 F Al Hydroxide/Mg Hydroxide (Mag Hydrox/Al Hydrox/Simeth 30 Ml Udc) 30 ml PO Q6H PRN PRN PRN Reason: Gastric Burning Albuterol Sulfate (Albuterol 2.5 Mg/3 Ml Vial.Neb.) 2.5 mg INHALATION Q2H PRN PRN PRN Reason: SOB/Wheezing Allopurinol (Allopurinol 100 Mg Tablet) 100 mg PO BID [facility] Last Admin: 05/04/20 20:25 Dose: 100 mg Documented by: Amlodipine Besylate (Amlodipine 10 Mg Tablet) 10 mg PO DAILY@1999 [facility] Last Admin: 05/04/20 20:25 Dose: 10 mg Documented by: Carvedilol (Carvedilol 6.25 Mg Tablet) 6.25 mg PO BID [facility] Last Admin: 05/04/20 20:25 Dose: 6.25 mg Documented by: Clopidogrel Bisulfate (Clopidogrel Bisulfate 75 Mg Tablet) 75 mg PO DAILY [facility] Dexamethasone (Dexamethasone 4 Mg Tablet) 6 mg PO DAILY [facility] Stop: 05/13/20 10:01 Last Admin: 05/04/20 16:35 Dose: 6 mg Documented by: Docusate Sodium (Docusate Sodium 100 Mg Capsule) 100 mg PO BID PRN PRN PRN Reason: Constipation Gabapentin (Gabapentin 300 Mg Capsule) 300 mg PO BID [facility] Last Admin: 05/04/20 20:25 Dose: 300 mg Documented by: Guaifenesin (Guaifenesin 10 Ml Udc (200mg/10ml)) 10 ml PO Q4H PRN PRN PRN Reason: COUGH Remdesivir 100 mg/ Sodium (Chloride) 250 mls @ 125 mls/hr IV DAILY [facility] Stop: 05/08/20 11:59 Furosemide 500 mg/ N/A 50 mls @ 1 mls/hr CONT INF .Q50H [facility] Last Admin: 05/04/20 21:46 Dose: 10 mg/hr, 1 mls/hr Documented by: Influenza Virus Vaccine Quadrival (Influenza Vaccine (6mos+)/Pf 0.5 Ml Syringe) 0.5 ml IM .ONCE ONE Stop: 05/05/20 10:01 Melatonin (Melatonin 3 Mg Tablet) 3 mg PO QHS PRN PRN PRN Reason: INSOMNIA Morphine Sulfate (Morphine 2 Mg/Ml Syringe) 2 mg IV Q3H PRN PRN PRN Reason: Pain Score 6-10 Ondansetron HCl (Ondansetron 4 Mg/2 Ml Vial) 4 mg IV Q8H PRN PRN PRN Reason: NAUSEA/VOMITING Pantoprazole Sodium (Pantoprazole Sodium 40 Mg Tablet) 40 mg PO DAILY [facility] Pravastatin Sodium (Pravastatin 80 Mg Tablet) 80 mg PO QHS [facility] Last Admin: 05/04/20 20:25 Dose: 80 mg Documented by: Sertraline HCl (Sertraline 100 Mg Tablet) 100 mg PO DAILY [facility] Sodium Chloride (0.9% Saline Lock 10 Ml Syringe) 10 - 40 ml IV UD PRN PRN Reason: SALINE FLUSH Assessment/Plan Active and Suspected Problems (Last Reviewed 05/04/20 @ 14:[address] Daphne Patel DO) CHF exacerbation (Acute) Non-ST elevation myocardial infarction (NSTEMI) (Acute) Cardiomyopathy (Acute) COVID-19 (Acute) Acute respiratory failure (Acute) RECOMMENDATIONS: 1. Attempt to wean from continuous BiPAP. Airvo heated high flow can be utilized if the patient is unable to be weaned. 2. Continue Decadron and remdesivir as ordered. 3. Continue aggressive diuresis as tolerated by hemodynamics and renal function. 4. Additional recommendations per cardiology. 5. Continue to hold Coumadin given supratherapeutic INR. IMPRESSIONS: 1. Acute on chronic hypoxemic respiratory failure secondary to combined decompensated heart failure and COVID-19 pneumonia Plan to continue current supportive measures with BiPAP with a goal to wean FiO2 to maintain oxygen saturations at or above 90%. From my perspective, the patient can be given a break from BiPAP, and if intolerant of weaning, can be placed on Airvo heated high flow oxygen. Cardiology consultation is currently pending. However, will plan to continue aggressive diuresis as tolerated by hemodynamics and renal function. The patient will be continued on remdesivir and Decadron as ordered. 2. History of chronic kidney disease We will monitor urine output and renal function closely in light of ongoing diuresis. 3. Coagulopathy The patient presented to the hospital with a supratherapeutic INR. Recommend continuing to hold Coumadin for now. Once INR becomes subtherapeutic, Lovenox can be initiated. 4. History of ischemic cardiomyopathy/hypertension/hyperlipidemia/peripheral vascular disease/diabetes mellitus/questionable COPD/obesity Complicates care, management, recovery and prognosis. Continue home medications as tolerated. TIME: 38 minutes of critical care time, independent of procedures, was spent addressing the patient's acute on chronic hypoxemic respiratory failure, decompensated heart failure, COVID-19 pneumonia, coagulopathy, chronic kidney disease, review of all data and collaboration with the care team. [id number]) [phone]: [id number] Critical care first hour
--- NOTE | 2020-05-05 05:55 | RAD_ITS ---
HISTORY: Shortness of breath, acute respiratory failure, COVID. EXAM: XR Chest 1 View COMPARISON: May 04, 2020 FINDINGS: LINES/DEVICES: None. LUNGS: There are chronic interstitial changes. No pneumothorax. Bilateral airspace disease greatest in the lower lungs right greater than left. MEDIASTINUM AND CARDIOVASCULAR STRUCTURES: Cardiac silhouette not enlarged. Central airways and mediastinal contour are unremarkable. Athersclerotic plaque within the aortic arch. BONES AND SOFT TISSUES: Thoracic spondylosis. RAD/Chest 1 View (Portable) IMPRESSION: Chronic interestitial changes. Additional airspace the likely representing pneumonia, similar in severity to the previous study . at 0507 Reported and signed by: Barry Alejo MD Electronically Signed: Barry Alejo MD at 5:06 EST Tel , Service support ,
--- NOTE | 2020-05-05 07:45 | PCM.PN.HOSP ---
Patient Problems: Active and Suspected Problems (Last Reviewed 05/04/20 @ 14:[address] Daphne Patel, DO) CHF exacerbation (Acute) Non-ST elevation myocardial infarction (NSTEMI) (Acute) Cardiomyopathy (Acute) COVID-19 (Acute) Acute respiratory failure (Acute) Objective: Patient is afebrile. Blood pressure MAP more than 65. Tachypneic, respiratory rate 23-27/m, on BiPAP 60% FiO2 INR elevated. Lactic acid 2.4. BNP 4600. SARS-CoV-2 rapid antigen and COVID-19 PCR positive Physical exam General: Alert, awake, oriented x3, Cooperative HEENT: Atraumatic, PERRLA, EOMI, Normocephalic Oral: No Gingival or Mucosal Lesions/ Ulcerations Neck: Supple, No JVD, Negative Carotid Bruits Lungs: Air entry severely diminished in bilateral lung bases. Bilateral expiratory rhonchi present. Tachypnea and hypoxia. Cardiovascular: Sinus bradycardia with PVCs. Normal S1, Normal S2, No murmurs Abdomen: Bowel Sounds Present, Soft, Non Tender, Non-Distended : No renal angle tenderness. No suprapubic tenderness. Extremities: No edema, Capillary Refill Less than 3 Seconds Skin: No rashes, No breakdown Musculoskeletal: No Tenderness to Palpation of Joints or Extremities. Mild muscle atrophy of extremities and loss of subcutaneous fat. Neurological: Cranial nerves II-XII grossly intact, Deep Tendon Reflexes 2+/4 and Symmetrical, Neuro grossly intact Psych/Mental Status: Normal Affect, Appropriate. Vitals/I&O's: Vital Signs Temp Pulse Resp BP Pulse Ox 97.3 F L 61 27 H 102/43 L 95 05/05/20 06:00 05/05/20 07:21 05/05/20 07:16 05/05/20 07:00 05/05/20 07:16 Oxygen Flow Rate (L/min) 30 Oxygen Delivery Method Bi-pap Weight: 187 lb 9.814 oz Body Mass Index (BMI) 30.5 Intake and Output for Last 24 Hours 05/03/20 05/04/20 05/05/20 23:59 23:59 23:59 Intake Total 490.02 / 490.02 120 / 120 Output Total 700 / 700 400 / 400 Balance -209.98 / -209.98 -280 / -280 Microbiology Past 72 Hours 05/04/20 12:56 Mucosa - Nose SARS-CoV-2 Antigen (Rapid) - Final SARS-CoV-2 (COVID 19) Laboratory Results 05/04/20 12:50: WBC 6.0, RBC 4.52, Hgb 13.2, Hct 42.4, MCV 93.8, MCH 29.2, MCHC 31.1 L, RDW Std Deviation 56.5 H, RDW Coeff of Geovanna 16.3 H, Plt Count 315, MPV 10.7, Immature Gran % (Auto) 1.000 H, Neut % (Auto) 81.3 H, Lymph % (Auto) 12.8 L, [place] % (Auto) 4.5, Eos % (Auto) 0.2, Baso % (Auto) 0.2, Absolute Neuts (auto) 4.9, Absolute Lymphs (auto) 0.77 L, Nucleated RBC % 0 05/04/20 12:50: PT 37.6 H, INR 3.8 H* 05/04/20 12:50: Sodium 139, Potassium 3.2 L, Chloride 104, Carbon Dioxide 24.0, Anion Gap 11, BUN 51 H, Creatinine 1.61 H, Estim Creat Clear Calc 30.00, Est GFR (MDRD) Af Amer 41 L, Est GFR (MDRD) Non-Af 34 L, BUN/Creatinine Ratio 31.7 H, Glucose 170 H, Calcium 8.8, Troponin I 0.120 H 05/04/20 12:50: Lactic Acid 2.4 H* 05/04/20 12:50: B-Natriuretic Peptide 4607.8 H 05/04/20 13:25: Specimen Type ART, Sample Site L Radial, pH 7.49 H, Bicarbonate Actual 19.8 L, Total CO2 21, Base Excess -4 L, O2 Saturation 93 L, O2 % 50, ABG pCO2 25.8 L, ABG pO2 59 L, Johnny Test Positive, O2 Delivery Device BiPAP, Vent Mode BiLevel 05/04/20 20:40: COVID-19 (LIZ) Detected 05/05/20 04:30: WBC 4.3 L, RBC 4.22, Hgb 12.3, Hct 39.8, MCV 94.3, MCH 29.1, MCHC 30.9 L, RDW Std Deviation 57.1 H, RDW Coeff of Geovanna 16.4 H, Plt Count 281, MPV 11.6, Immature Gran % (Auto) 1.200 H, Neut % (Auto) 82.9 H, Lymph % (Auto) 11.3 L, [place] % (Auto) 4.4, Eos % (Auto) 0.0, Baso % (Auto) 0.2, Absolute Neuts (auto) 3.6, Absolute Lymphs (auto) 0.49 L, Nucleated RBC % 0, Diff Path Review September05/05/20 04:30: Sodium 137, Potassium 4.8, Chloride 104, Carbon Dioxide 23.0, Anion Gap 10, BUN 60 H, Creatinine 1.79 H, Estim Creat Clear Calc 26.99, Est GFR (MDRD) Af Amer 36 L, Est GFR (MDRD) Non-Af 30 L, BUN/Creatinine Ratio 33.5 H, Glucose 239 H, Calcium 8.3 L, Phosphorus 4.9, Magnesium 2.2, Total Bilirubin 0.50, AST 48 H, ALT 14, Alkaline Phosphatase 76, Total Protein 7.4, Albumin 2.3 L, Globulin 5.1 H, Albumin/Globulin Ratio 0.5 L 05/05/20 04:30: B-Natriuretic Peptide 3726.0 H 05/05/20 04:30: PT 39.7 H, INR 4.1 H* Current Medications Acetaminophen (Acetaminophen 325 Mg Tablet) 650 mg PO Q6H PRN PRN PRN Reason: Pain Score 1-10/Temp > 100.7 F Al Hydroxide/Mg Hydroxide (Mag Hydrox/Al Hydrox/Simeth 30 Ml Udc) 30 ml PO Q6H PRN PRN PRN Reason: Gastric Burning Albuterol Sulfate (Albuterol 2.5 Mg/3 Ml Vial.Neb.) 2.5 mg INHALATION Q2H PRN PRN PRN Reason: SOB/Wheezing Allopurinol (Allopurinol 100 Mg Tablet) 100 mg PO BID [facility] Last Admin: 05/04/20 20:25 Dose: 100 mg Documented by: Amlodipine Besylate (Amlodipine 10 Mg Tablet) 10 mg PO DAILY@1999 [facility] Last Admin: 05/04/20 20:25 Dose: 10 mg Documented by: Carvedilol (Carvedilol 6.25 Mg Tablet) 6.25 mg PO BID [facility] Last Admin: 05/04/20 20:25 Dose: 6.25 mg Documented by: Clopidogrel Bisulfate (Clopidogrel Bisulfate 75 Mg Tablet) 75 mg PO DAILY [facility] Dexamethasone (Dexamethasone 4 Mg Tablet) 6 mg PO DAILY [facility] Stop: 05/13/20 10:01 Last Admin: 05/04/20 16:35 Dose: 6 mg Documented by: Docusate Sodium (Docusate Sodium 100 Mg Capsule) 100 mg PO BID PRN PRN PRN Reason: Constipation Gabapentin (Gabapentin 300 Mg Capsule) 300 mg PO BID [facility] Last Admin: 05/04/20 20:25 Dose: 300 mg Documented by: Guaifenesin (Guaifenesin 10 Ml Udc (200mg/10ml)) 10 ml PO Q4H PRN PRN PRN Reason: COUGH Remdesivir 100 mg/ Sodium (Chloride) 250 mls @ 125 mls/hr IV DAILY [facility] Stop: 05/08/20 11:59 Furosemide 500 mg/ N/A 50 mls @ 1 mls/hr CONT INF .Q50H [facility] Last Admin: 05/04/20 21:46 Dose: 10 mg/hr, 1 mls/hr Documented by: Influenza Virus Vaccine Quadrival (Influenza Vaccine (6mos+)/Pf 0.5 Ml Syringe) 0.5 ml IM .ONCE ONE Stop: 05/05/20 10:01 Melatonin (Melatonin 3 Mg Tablet) 3 mg PO QHS PRN PRN PRN Reason: INSOMNIA Morphine Sulfate (Morphine 2 Mg/Ml Syringe) 2 mg IV Q3H PRN PRN PRN Reason: Pain Score 6-10 Nystatin (Nystatin Ointment) 1 applic TOPICAL BID [facility]; Protocol Ondansetron HCl (Ondansetron 4 Mg/2 Ml Vial) 4 mg IV Q8H PRN PRN PRN Reason: NAUSEA/VOMITING Pantoprazole Sodium (Pantoprazole Sodium 40 Mg Tablet) 40 mg PO DAILY [facility] Pravastatin Sodium (Pravastatin 80 Mg Tablet) 80 mg PO QHS [facility] Last Admin: 05/04/20 20:25 Dose: 80 mg Documented by: Sertraline HCl (Sertraline 100 Mg Tablet) 100 mg PO DAILY [facility] Sodium Chloride (0.9% Saline Lock 10 Ml Syringe) 10 - 40 ml IV UD PRN PRN Reason: SALINE FLUSH STROKE Vital Signs/Narrative: Vital Signs Temp Pulse Resp BP Pulse Ox 05/05/20 07:21 61 05/05/20 07:16 66 27 H 95 05/05/20 07:00 65 25 H 102/43 L 91 05/05/20 06:00 97.3 F L 60 25 H 106/51 L 94 05/05/20 05:00 62 23 H 105/50 L 93 05/05/20 04:00 63 26 H 107/50 L 93 Medical Necessity - Tobacco Use Smoking Status: Former smoker Tobacco Use: Cigarettes Assessment/Plan All Active Problems (Last Reviewed 05/04/20 @ 14:[address] Daphne Patel, DO) CHF exacerbation (Acute) Non-ST elevation myocardial infarction (NSTEMI) (Acute) CHF (congestive heart failure) (Acute) Cardiomyopathy (Acute) COVID-19 (Acute) Acute respiratory failure (Acute) NSTEMI (non-ST elevated myocardial infarction) (Resolved) This 70-year-old female with multiple comorbidities including COPD was admitted with shortness of breath, nonproductive cough, generalized weakness and diarrhea. Patient had recent hospital admission from 04/20?04/25 for non-ST elevation TX and acute on chronic systolic heart failure. At that time, 2D echo EF 25% with mild pulmonary hypertension. She was treated medically. 1. Acute on chronic hypoxic respiratory failure secondary to COVID-19 pneumonia and acute on chronic HFrEF and bilateral COVID-19 pneumonia: Patient is admitted in ICU. She was on BiPAP at night, transition to AIR VO during daytime. Patient on IV remdesivir and Decadron. Strict input output. Patient on Lasix drip. Has Huynh catheter for strict intake with output monitoring. Seen by rubber stamp assembler. Discussed with the comfort advisor and cardiac medications continued as per hemodynamic parameters permit. BNP elevated forty-six hundred. Lactic acid 2.4. ABG showed 7.4 01/28/1960 on 50% FiO2 BiPAP. CBC showed lymphopenia, ALC 0.77 thousand 2. Recent non-ST elevation TX: Patient on Plavix, carvedilol, pravastatin. Patient not on BRENDEN/ARB secondary to low blood pressure/chronic kidney disease. Her blood pressure was on lower side during previous hospitalization. And is allergic to aspirin. 3. CKD stage III with hypokalemia: Patient was admitted with BUN/creatinine 51/1.61, slightly went up as she is on Lasix drip. Last BUN/creatinine 51/2.07 on 04/25. Potassium on replacement. Magnesium normal 2.2. Avoid nephrotoxic medications 4. Peripheral arterial disease status post aortobifemoral popliteal bypass in 1988 and had complicated postop course. She had last right femoral endarterectomy with profundoplasty in January 2019. Patient on Plavix and Coumadin. Coumadin on hold as INR supratherapeutic. She has chronic pain and tenderness, chronic nonhealing ulcer with a scab on left leg 5. Other multiple comorbidities include hypertension, dyslipidemia, anxiety and depression, GERD: Multiple comorbidities complicates the present care and expect difficult and delay recovery CODE STATUS: As per the admitting hospitalist: Full code DVT prophylaxis: As mentioned above. Inpatient E&M: [id number] [facility] L3
[2020-05-05] MEDS: Carvedilol 6.25 MG Tablet PO ×2 (09:04→20:17)
[2020-05-05] MEDS: Sertraline 100 MG Tablet PO (09:04)
[2020-05-05] MEDS: Gabapentin 300 MG Capsule PO ×2 (09:04→20:17)
[2020-05-05] MEDS: Allopurinol 100 MG Tablet PO ×2 (09:04→20:16)
[2020-05-05] MEDS: Clopidogrel Bisulfate 75 MG Tablet PO (09:04)
[2020-05-05] MEDS: Pantoprazole Sodium 40 MG Tablet PO (09:04)
[2020-05-05] MEDS: Nystatin Ointment 1 APPLIC TOPICAL ×2 (09:07→20:17)
[2020-05-05] MEDS: dexAMETHasone 4 MG Tablet 6 MG PO (09:07)
[2020-05-05] MEDS: Ondansetron 4 MG/2 ML Vial IV (09:07)
[2020-05-05] MEDS: 0.9% Saline Lock 10 ML Syringe IV (09:07)
[2020-05-05] MEDS: Albuterol 2.5 MG/3 ML VIAL.NEB. INHALATION (09:13)
[2020-05-05] MEDS: INHALER, ASSIST DEVICES 1 EACH SPACER INHALATION ×3 (09:46→18:03)
--- NOTE | 2020-05-05 14:06 | NURSING ---
Son called and given updated
[2020-05-05] MEDS: Albuterol Sulfate 8 gm Inhaler (60 puffs) 1 PUFF INHALATION ×2 (14:18→18:03)
[2020-05-05] MEDS: amLODIPine 10 MG Tablet PO (20:16)
[2020-05-05] MEDS: Pravastatin 80 MG Tablet PO (20:16)
[2020-05-05] MEDS: MELATONIN 3 MG TABLET PO (20:17)
--- NOTE | 2020-05-05 21:50 | NURSING ---
pt po dropping down to 84% but did come back to 87-88% on bipap 45%. resp notified andrea will be up
--- NOTE | 2020-05-05 22:30 | NURSING ---
resp here increased bipap 14/10 and fi02 to 50%. Pt pulled up in bed.
--- NOTE | 2020-05-05 23:22 | NURSING ---
po drop to 87% resp notified increased fi02 55%
[2020-05-06] VITALS (26 sets, daily range): BP systolic 75–148; BP diastolic 36–69; PULSE 51–66; RESP 12–24; TEMP 35.2–36.6; O2SAT 76–99
[2020-05-06 03:12] LABS: Hematocrit 38.3 % (37-47); Hemoglobin 11.6 g/dL (12.0-15.0); Mean Corp Hgb Conc 30.3 g/dL (32-36); Mean Corpuscular Hgb 28.7 pg (27.0-32.0); Mean Corpuscular Volume 94.8 fL (81-99); Mean Platelet Vol. 11.3 fl (6.2-12.0); Platelet Count 286 K/mm3 (150-450); RBC Distribution Width CV 16.4 % (11.6-14.6); RBC Distribution Width SD 57.5 fl (35.1-43.9); Red Blood Count 4.04 M/mm3 (4.2-5.4)
[2020-05-06 03:23] LABS: Prothrombin Time (Protime)PT. 42.6 SECONDS (11.7-14.9)
[2020-05-06 03:25] LABS: Anion Gap 10 (5-15); BUN 85 mg/dL (7-18); Calcium,Total 8.4 mg/dL (8.5-10.1); Chloride 103 mmol/L (98-107); Creatinine, Serum 2.36 mg/dL (0.55-1.02); EST Glomerular Filtration Rate 22 mL/min (>60); Est Glom Filt Rate - Afr Amer 26 mL/min (>60); Estimated Creatinine Clearance 20.47 ml/min; Glucose 252 mg/dL (74-106); Potassium 4.6 mmol/L (3.5-5.1); Sodium Level 137 mmol/L (136-145)
[2020-05-06 03:31] LABS: International Normalized Ratio 4.5
[2020-05-06] MEDS: Albuterol Sulfate 8 gm Inhaler (60 puffs) 1 PUFF INHALATION (05:19)
[2020-05-06] MEDS: INHALER, ASSIST DEVICES 1 EACH SPACER INHALATION ×2 (05:21→08:28)
--- NOTE | 2020-05-06 05:47 | PCM.PN.INT ---
Subjective: The patient was seen and examined at the bedside this morning. Events from the last 24 hours have been reviewed. The patient is currently afebrile, hemodynamically stable and maintaining appropriate oxygen saturations on BiPAP with an FiO2 requirement of 55%. INR remains elevated this morning at 4.5. Creatinine has increased since yesterday to 2.36. The patient is currently documented to be overall net +680 mL for the hospital admission. The patient denies any significant shortness of breath but does have a mild nonproductive cough. She has been otherwise intolerant of attempts at Airvo utilization, as the patient states that it is uncomfortable. She prefers BiPAP instead. Objective: The patient's most recent lab work, culture data and imaging studies have all been personally reviewed. Surface echocardiogram from April 2020 revealed severe segmental systolic dysfunction with an ejection fraction of 25%. Right ventricular systolic pressure was estimated to be 35 mmHg. Coronavirus PCR was positive on May 04. Blood cultures are pending. General: Alert, Cooperative, No apparent distress, - - BiPAP mask remains in place HEENT: Atraumatic, Normocephalic Oral: No Gingival or Mucosal Lesions/ Ulcerations Neck: Supple, No Nodes, Trachea Midline Lungs: No rhonchi, No wheeze, Diminished, Rales Cardiovascular: Regular rate, Regular Rhythm Abdomen: Bowel Sounds Present, Soft, Non Tender, Obese Extremities: No clubbing, No cyanosis, No edema Skin: No breakdown Musculoskeletal: No Tenderness to Palpation of Joints or Extremities Lymphatic: No Cervical, Supraclavicular, or Inguinal Adenopathy Neurological: Cranial nerves II-XII grossly intact, Neuro grossly intact Psych/Mental Status: Normal Affect, Appropriate Vital Signs Temp Pulse Resp BP Pulse Ox 97.9 F 52 L 20 H 115/45 L 96 05/06/20 03:00 05/06/20 05:00 05/06/20 05:00 05/06/20 05:00 05/06/20 05:00 Oxygen Flow Rate (L/min) 60 Oxygen Delivery Method Bi-pap Weight: 191 lb 12.835 oz Body Mass Index (BMI) 30.5 Intake and Output for Last 24 Hours 05/04/20 05/05/20 05/06/20 23:59 23:59 23:59 Intake Total 490.02 / 490.02 1525 / 1525 510.55 / 510.55 Output Total 700 / 700 1005 / 1005 140 / 140 Balance -209.98 / -209.98 520 / 520 370.55 / 370.55 Labs (Last 48 Hours) 05/04/20 05/04/20 05/04/20 12:50 12:50 12:50 WBC 6.0 RBC 4.52 Hgb 13.2 Hct 42.4 MCV 93.8 MCH 29.2 MCHC 31.1 L RDW Std Deviation 56.5 H RDW Coeff of Geovanna 16.3 H Plt Count 315 MPV 10.7 Immature Gran % (Auto) 1.000 H Neut % (Auto) 81.3 H Lymph % (Auto) 12.8 L [place] % (Auto) 4.5 Eos % (Auto) 0.2 Baso % (Auto) 0.2 Absolute Neuts (auto) 4.9 Absolute Lymphs (auto) 0.77 L Nucleated RBC % 0 Diff Path Review PT 37.6 H INR 3.8 H* Specimen Type Sample Site pH Bicarbonate Actual Total CO2 Base Excess O2 Saturation O2 % ABG pCO2 ABG pO2 Johnny Test O2 Delivery Device Vent Mode Sodium 139 Potassium 3.2 L Chloride 104 Carbon Dioxide 24.0 Anion Gap 11 BUN 51 H Creatinine 1.61 H Estim Creat Clear Calc 30.00 Est GFR (MDRD) Af Amer 41 L Est GFR (MDRD) Non-Af 34 L BUN/Creatinine Ratio 31.7 H Glucose 170 H Lactic Acid Calcium 8.8 Phosphorus Magnesium Total Bilirubin AST ALT Alkaline Phosphatase Troponin I 0.120 H B-Natriuretic Peptide Total Protein Albumin Globulin Albumin/Globulin Ratio COVID-19 (LIZ) 05/04/20 05/04/20 05/04/20 12:50 12:50 13:25 WBC RBC Hgb Hct MCV MCH MCHC RDW Std Deviation RDW Coeff of Geovanna Plt Count MPV Immature Gran % (Auto) Neut % (Auto) Lymph % (Auto) [place] % (Auto) Eos % (Auto) Baso % (Auto) Absolute Neuts (auto) Absolute Lymphs (auto) Nucleated RBC % Diff Path Review PT INR Specimen Type ART Sample Site L Radial pH 7.49 H Bicarbonate Actual 19.8 L Total CO2 21 Base Excess -4 L O2 Saturation 93 L O2 % 50 ABG pCO2 25.8 L ABG pO2 59 L Johnny Test Positive O2 Delivery Device BiPAP Vent Mode BiLevel Sodium Potassium Chloride Carbon Dioxide Anion Gap BUN Creatinine Estim Creat Clear Calc Est GFR (MDRD) Af Amer Est GFR (MDRD) Non-Af BUN/Creatinine Ratio Glucose Lactic Acid 2.4 H* Calcium Phosphorus Magnesium Total Bilirubin AST ALT Alkaline Phosphatase Troponin I B-Natriuretic Peptide 4607.8 H Total Protein Albumin Globulin Albumin/Globulin Ratio COVID-19 (LIZ) 05/04/20 05/05/20 05/05/20 20:40 04:30 04:30 WBC 4.3 L RBC 4.22 Hgb 12.3 Hct 39.8 MCV 94.3 MCH 29.1 MCHC 30.9 L RDW Std Deviation 57.1 H RDW Coeff of Geovanna 16.4 H Plt Count 281 MPV 11.6 Immature Gran % (Auto) 1.200 H Neut % (Auto) 82.9 H Lymph % (Auto) 11.3 L [place] % (Auto) 4.4 Eos % (Auto) 0.0 Baso % (Auto) 0.2 Absolute Neuts (auto) 3.6 Absolute Lymphs (auto) 0.49 L Nucleated RBC % 0 Diff Path Review May foll PT INR Specimen Type Sample Site pH Bicarbonate Actual Total CO2 Base Excess O2 Saturation O2 % ABG pCO2 ABG pO2 Johnny Test O2 Delivery Device Vent Mode Sodium 137 Potassium 4.8 Chloride 104 Carbon Dioxide 23.0 Anion Gap 10 BUN 60 H Creatinine 1.79 H Estim Creat Clear Calc 26.99 Est GFR (MDRD) Af Amer 36 L Est GFR (MDRD) Non-Af 30 L BUN/Creatinine Ratio 33.5 H Glucose 239 H Lactic Acid Calcium 8.3 L Phosphorus 4.9 Magnesium 2.2 Total Bilirubin 0.50 AST 48 H ALT 14 Alkaline Phosphatase 76 Troponin I B-Natriuretic Peptide Total Protein 7.4 Albumin 2.3 L Globulin 5.1 H Albumin/Globulin Ratio 0.5 L COVID-19 (LIZ) Detected 05/05/20 05/05/20 05/06/20 04:30 04:30 03:00 WBC 7.0 RBC 4.04 L Hgb 11.6 L Hct 38.3 MCV 94.8 MCH 28.7 MCHC 30.3 L RDW Std Deviation 57.5 H RDW Coeff of Geovanna 16.4 H Plt Count 286 MPV 11.3 Immature Gran % (Auto) Neut % (Auto) Lymph % (Auto) [place] % (Auto) Eos % (Auto) Baso % (Auto) Absolute Neuts (auto) Absolute Lymphs (auto) Nucleated RBC % Diff Path Review PT 39.7 H INR 4.1 H* Specimen Type Sample Site pH Bicarbonate Actual Total CO2 Base Excess O2 Saturation O2 % ABG pCO2 ABG pO2 Johnny Test O2 Delivery Device Vent Mode Sodium Potassium Chloride Carbon Dioxide Anion Gap BUN Creatinine Estim Creat Clear Calc Est GFR (MDRD) Af Amer Est GFR (MDRD) Non-Af BUN/Creatinine Ratio Glucose Lactic Acid Calcium Phosphorus Magnesium Total Bilirubin AST ALT Alkaline Phosphatase Troponin I B-Natriuretic Peptide 3726.0 H Total Protein Albumin Globulin Albumin/Globulin Ratio COVID-19 (LIZ) 05/06/20 05/06/20 03:00 03:00 WBC RBC Hgb Hct MCV MCH MCHC RDW Std Deviation RDW Coeff of Geovanna Plt Count MPV Immature Gran % (Auto) Neut % (Auto) Lymph % (Auto) [place] % (Auto) Eos % (Auto) Baso % (Auto) Absolute Neuts (auto) Absolute Lymphs (auto) Nucleated RBC % Diff Path Review PT 42.6 H INR 4.5 H* Specimen Type Sample Site pH Bicarbonate Actual Total CO2 Base Excess O2 Saturation O2 % ABG pCO2 ABG pO2 Johnny Test O2 Delivery Device Vent Mode Sodium 137 Potassium 4.6 Chloride 103 Carbon Dioxide 24.0 Anion Gap 10 BUN 85 H Creatinine 2.36 H Estim Creat Clear Calc 20.47 Est GFR (MDRD) Af Amer 26 L Est GFR (MDRD) Non-Af 22 L BUN/Creatinine Ratio 36.0 H Glucose 252 H Lactic Acid Calcium 8.4 L Phosphorus Magnesium Total Bilirubin AST ALT Alkaline Phosphatase Troponin I B-Natriuretic Peptide Total Protein Albumin Globulin Albumin/Globulin Ratio COVID-19 (LIZ) Microbiology 05/04/20 12:56 Mucosa - Nose SARS-CoV-2 Antigen (Rapid) - Final SARS-CoV-2 (COVID 19) Clinical Impression(s) from Imaging Studies Chest X-Ray 05/04/20 12:55 IMPRESSION: No change in acute or chronic interstitial lung disease. Interval resolution of left lower lobe pneumonia or atelectasis. Electronically Signed: Clifton Garza MD at 13:17 EST Tel , Service support , Chest X-Ray 05/05/20 05:55 IMPRESSION: Chronic interestitial changes. Additional airspace the likely representing pneumonia, similar in severity to the previous study . at [id number] Reported and signed by: Barry Alejo MD Electronically Signed: Barry Alejo MD at 5:06 EST Tel , Service support , Medical Necessity - Tobacco Use Smoking Status: Former smoker Tobacco Use: Cigarettes Assessment/Plan All Active Problems (Last Reviewed 05/04/20 @ 14:[address] Daphne Patel DO) CHF exacerbation (Acute) Non-ST elevation myocardial infarction (NSTEMI) (Acute) CHF (congestive heart failure) (Acute) Cardiomyopathy (Acute) COVID-19 (Acute) Acute respiratory failure (Acute) NSTEMI (non-ST elevated myocardial infarction) (Resolved) RECOMMENDATIONS: 1. Continue BiPAP therapy and wean FiO2 to maintain oxygen saturations at or above 90%. 2. Discontinue Lasix drip. 3. Continue Decadron and remdesivir as ordered. If renal function worsens, remdesivir will need to be discontinued. 4. Continue to hold Coumadin given supratherapeutic INR. IMPRESSIONS: 1. Acute on chronic hypoxemic respiratory failure secondary to combined decompensated heart failure and COVID-19 pneumonia The patient will be continued on BiPAP therapy as tolerated with goals to wean her FiO2 to maintain oxygen saturations at or above 90%. IV diuretic therapy has been placed on hold today due to worsening renal insufficiency. I would plan to monitor the patient off of diuretics today. The patient will be continued on Decadron and remdesivir for now. However, if the patient's kidney function continues to worsen, remdesivir will need to be discontinued. 2. Acute on chronic kidney disease In light of the fact that the patient's creatinine increased this morning, her continuous Lasix infusion has been discontinued. 3. Coagulopathy The patient presented to the hospital with a supratherapeutic INR. Recommend continuing to hold Coumadin for now. Once INR becomes subtherapeutic, Lovenox can be initiated. 4. History of ischemic cardiomyopathy/hypertension/hyperlipidemia/peripheral vascular disease/diabetes mellitus/questionable COPD/obesity Complicates care, management, recovery and prognosis. Continue home medications as tolerated. TIME: 33 minutes of critical care time, independent of procedures, was spent addressing the patient's acute on chronic hypoxemic respiratory failure, decompensated heart failure, COVID-19 pneumonia, coagulopathy, chronic kidney disease, review of all data and collaboration with the care team. [id number]) [id number] Critical care first hour
--- NOTE | 2020-05-06 07:09 | PCM.PN.HOSP ---
Patient Problems: Active and Suspected Problems (Last Reviewed 05/04/20 @ 14:[address] Daphne Patel, DO) CHF exacerbation (Acute) Non-ST elevation myocardial infarction (NSTEMI) (Acute) Cardiomyopathy (Acute) COVID-19 (Acute) Acute respiratory failure (Acute) Reason for Visit: Follow-up for acute hypoxic respiratory failure secondary to COVID-19 pneumonia. Objective: No fever. Patient on BiPAP 50% he was transitioned to 5 L of oxygen through nasal cannula. Tachypneic. MAP more than 65. Heart rate running in 50s. Blood pressure systolic in 90s, map more than 65. Complain of pain over the skin tear in the left groin crease. Patient is less short of breath than yesterday. Physical exam General: Alert, awake, oriented x3, Cooperative HEENT: Atraumatic, PERRLA, EOMI, Normocephalic Oral: No Gingival or Mucosal Lesions/ Ulcerations Neck: Supple, No JVD, Negative Carotid Bruits Lungs: Air entry diminished in bilateral lung bases. Bilateral expiratory rhonchi present. Tachypnea and hypoxia. Cardiovascular: Sinus bradycardia with PVCs. Normal S1, Normal S2, No murmurs Abdomen: Bowel Sounds Present, Soft, Non Tender, Non-Distended : No renal angle tenderness. No suprapubic tenderness. Extremities: No edema, Capillary Refill Less than 3 Seconds Skin: Small linear skin erosion/wound over left groin crease, present since admission. Mild tenderness present around it. Musculoskeletal: No Tenderness to Palpation of Joints or Extremities. Mild muscle atrophy of extremities and loss of subcutaneous fat. Neurological: Cranial nerves II-XII grossly intact, Deep Tendon Reflexes 2+/4 and Symmetrical, Neuro grossly intact Psych/Mental Status: Normal Affect, Appropriate. Vitals/I&O's: Vital Signs Temp Pulse Resp BP Pulse Ox 97.9 F 56 L 21 H 124/61 H 94 05/06/20 03:00 05/06/20 07:00 05/06/20 07:00 05/06/20 07:00 05/06/20 07:00 Oxygen Flow Rate (L/min) 60 Oxygen Delivery Method Bi-pap Weight: 191 lb 12.835 oz Body Mass Index (BMI) 30.5 Intake and Output for Last 24 Hours 05/04/20 05/05/20 05/06/20 23:59 23:59 23:59 Intake Total 490.02 / 490.02 1525 / 1525 671.08 / 671.08 Output Total 700 / 700 1005 / 1005 140 / 140 Balance -209.98 / -209.98 520 / 520 531.08 / 531.08 Microbiology Past 72 Hours 05/04/20 12:56 Mucosa - Nose SARS-CoV-2 Antigen (Rapid) - Final SARS-CoV-2 (COVID 19) Laboratory Results 05/06/20 03:00: WBC 7.0, RBC 4.04 L, Hgb 11.6 L, Hct 38.3, MCV 94.8, MCH 28.7, MCHC 30.3 L, RDW Std Deviation 57.5 H, RDW Coeff of Geovanna 16.4 H, Plt Count 286, MPV 11.3 05/06/20 03:00: PT 42.6 H, INR 4.5 H* 05/06/20 03:00: Sodium 137, Potassium 4.6, Chloride 103, Carbon Dioxide 24.0, Anion Gap 10, BUN 85 H, Creatinine 2.36 H, Estim Creat Clear Calc 20.47, Est GFR (MDRD) Af Amer 26 L, Est GFR (MDRD) Non-Af 22 L, BUN/Creatinine Ratio 36.0 H, Glucose 252 H, Calcium 8.4 L Current Medications Acetaminophen (Acetaminophen 325 Mg Tablet) 650 mg PO Q6H PRN PRN PRN Reason: Pain Score 1-10/Temp > 100.7 F Al Hydroxide/Mg Hydroxide (Mag Hydrox/Al Hydrox/Simeth 30 Ml Udc) 30 ml PO Q6H PRN PRN PRN Reason: Gastric Burning Albuterol Sulfate (Albuterol Sulfate 8 Gm Inhaler (60 Puffs)) 1 puff INHALATION Q4H PRN PRN PRN Reason: SOB/Wheezing Last Admin: 05/06/20 05:19 Dose: 1 puff Documented by: Allopurinol (Allopurinol 100 Mg Tablet) 100 mg PO BID [facility] Last Admin: 05/05/20 20:16 Dose: 100 mg Documented by: Amlodipine Besylate (Amlodipine 10 Mg Tablet) 10 mg PO DAILY@1999 [facility] Last Admin: 05/05/20 20:16 Dose: 10 mg Documented by: Carvedilol (Carvedilol 6.25 Mg Tablet) 6.25 mg PO BID [facility] Last Admin: 05/05/20 20:17 Dose: 6.25 mg Documented by: Clopidogrel Bisulfate (Clopidogrel Bisulfate 75 Mg Tablet) 75 mg PO DAILY [facility] Last Admin: 05/05/20 09:04 Dose: 75 mg Documented by: Dexamethasone (Dexamethasone 4 Mg Tablet) 6 mg PO DAILY [facility] Stop: 05/13/20 10:01 Last Admin: 05/05/20 09:07 Dose: 6 mg Documented by: Docusate Sodium (Docusate Sodium 100 Mg Capsule) 100 mg PO BID PRN PRN PRN Reason: Constipation Gabapentin (Gabapentin 300 Mg Capsule) 300 mg PO BID [facility] Last Admin: 05/05/20 20:17 Dose: 300 mg Documented by: Guaifenesin (Guaifenesin 10 Ml Udc (200mg/10ml)) 10 ml PO Q4H PRN PRN PRN Reason: COUGH Remdesivir 100 mg/ Sodium (Chloride) 250 mls @ 125 mls/hr IV DAILY [facility] Stop: 05/08/20 11:59 Last Infusion: 05/05/20 12:40 Dose: Infused Documented by: Sodium Chloride () 250 mls @ 15 mls/hr IV .[id number] PRN PRN Reason: Saline Flush Last Infusion: 05/06/20 06:05 Dose: 0 mls/hr Documented by: Sodium Chloride () 250 mls @ 15 mls/hr IV .[id number] PRN PRN Reason: Additional IVPB Infusion Melatonin (Melatonin 3 Mg Tablet) 3 mg PO QHS PRN PRN PRN Reason: INSOMNIA Last Admin: 05/05/20 20:17 Dose: 3 mg Documented by: Miscellaneous Information (Inhaler, Assist Devices 1 Each Spacer) 1 each INHALATION Q4HWA [facility] Last Admin: 05/06/20 05:21 Dose: 1 each Documented by: Morphine Sulfate (Morphine 2 Mg/Ml Syringe) 2 mg IV Q3H PRN PRN PRN Reason: Pain Score 6-10 Nystatin (Nystatin Ointment) 1 applic TOPICAL BID [facility]; Protocol Last Admin: 05/05/20 20:17 Dose: 1 applicatio Documented by: Ondansetron HCl (Ondansetron 4 Mg/2 Ml Vial) 4 mg IV Q8H PRN PRN PRN Reason: NAUSEA/VOMITING Last Admin: 05/05/20 09:07 Dose: 4 mg Documented by: Pantoprazole Sodium (Pantoprazole Sodium 40 Mg Tablet) 40 mg PO DAILY [facility] Last Admin: 05/05/20 09:04 Dose: 40 mg Documented by: Pravastatin Sodium (Pravastatin 80 Mg Tablet) 80 mg PO QHS [facility] Last Admin: 05/05/20 20:16 Dose: 80 mg Documented by: Sertraline HCl (Sertraline 100 Mg Tablet) 100 mg PO DAILY [facility] Last Admin: 05/05/20 09:04 Dose: 100 mg Documented by: Sodium Chloride (0.9% Saline Lock 10 Ml Syringe) 10 - 40 ml IV UD PRN PRN Reason: SALINE FLUSH Last Admin: 05/05/20 09:07 Dose: 20 ml Documented by: STROKE Vital Signs/Narrative: Vital Signs Pulse Resp BP Pulse Ox 05/06/20 07:00 56 L 21 H 124/61 H 94 05/06/20 06:00 51 L 22 H 110/46 L 94 05/06/20 05:00 52 L 20 H 115/45 L 96 05/06/20 04:30 52 L 16 94 05/06/20 04:00 53 L 18 109/42 L 98 05/06/20 03:14 53 L Medical Necessity - Tobacco Use Smoking Status: Former smoker Tobacco Use: Cigarettes Assessment/Plan All Active Problems (Last Reviewed 05/04/20 @ 14:[address] Daphne Patel, DO) CHF exacerbation (Acute) Non-ST elevation myocardial infarction (NSTEMI) (Acute) CHF (congestive heart failure) (Acute) Cardiomyopathy (Acute) COVID-19 (Acute) Acute respiratory failure (Acute) NSTEMI (non-ST elevated myocardial infarction) (Resolved) This 70-year-old female with multiple comorbidities including COPD was admitted with shortness of breath, nonproductive cough, generalized weakness and diarrhea. Patient had recent hospital admission from 04/20?04/25 for non-ST elevation IL and acute on chronic systolic heart failure. At that time, 2D echo EF 25% with mild pulmonary hypertension. She was treated medically. 1. Acute on chronic hypoxic respiratory failure secondary to COVID-19 pneumonia and acute on chronic HFrEF and bilateral COVID-19 pneumonia: Patient is admitted in ICU. She was on BiPAP at night, transition to AIR VO during daytime. Patient on IV remdesivir and Decadron. Strict input output. Patient on Lasix drip. Has Huynh catheter for strict intake with output monitoring. Seen by store standards associate. Discussed with the adjunct professor of u.s. history and cardiac medications continued as per hemodynamic parameters permit. BNP elevated forty-six hundred. Lactic acid 2.4. ABG showed 7.4 01/28/1960 on 50% FiO2 BiPAP. CBC showed lymphopenia, ALC 0.77 thousand 1/2: Discussed with the store standards associate. Patient has been transferred to [facility] floor, MedSurg unit. Hypoxia is better. Blood pressure on lower side with sinus bradycardia. On amlodipine and Coreg with holding parameters. 2. Recent non-ST elevation IL: Patient on Plavix, carvedilol, pravastatin. Patient not on BRENDEN/ARB secondary to low blood pressure/chronic kidney disease. Her blood pressure was on lower side during previous hospitalization. And is allergic to aspirin. 3. CKD stage III with hypokalemia: Patient was admitted with BUN/creatinine 51/1.61, slightly went up as she is on Lasix drip. Last BUN/creatinine 51/2.07 on 04/25. Potassium on replacement. Magnesium normal 2.2. Avoid nephrotoxic medications /: BUN/creatinine elevated 85/2.36. Total positive fluid balance 930 mL. Urine output 1000 mL yesterday. Lasix drip was discontinued in the morning today. 4. Peripheral arterial disease status post aortobifemoral popliteal bypass in 1988 and had complicated postop course. She had last right femoral endarterectomy with profundoplasty in January 2019. Patient on Plavix and Coumadin. Coumadin on hold as INR supratherapeutic. She has chronic pain and tenderness, chronic nonhealing ulcer with a scab on left leg 1/2: INR is still high 4.5 5. Other multiple comorbidities include hypertension, dyslipidemia, anxiety and depression, GERD: Multiple comorbidities complicates the present care and expect difficult and delay recovery CODE STATUS: As per the admitting hospitalist: Full code DVT prophylaxis: As mentioned above. Inpatient E&M: [id number] [facility] L3
--- NOTE | 2020-05-06 07:13 | CPS ---
Trialed pt on 50% VM but pt desated to 84%, R.T. then placed pt back on BIPAP but at 50%
[2020-05-06] MEDS: Clopidogrel Bisulfate 75 MG Tablet PO (08:25)
[2020-05-06] MEDS: Gabapentin 300 MG Capsule PO ×2 (08:25→21:05)
[2020-05-06] MEDS: Sertraline 100 MG Tablet PO ×2 (08:25→08:26)
[2020-05-06] MEDS: 0.9% Saline Lock 10 ML Syringe IV (08:26)
[2020-05-06] MEDS: Acetaminophen 325 MG Tablet 650 MG PO ×2 (08:27→21:04)
[2020-05-06] MEDS: dexAMETHasone 4 MG Tablet 6 MG PO (08:27)
[2020-05-06] MEDS: Nystatin Ointment 1 APPLIC TOPICAL ×2 (08:27→22:15)
[2020-05-06] MEDS: Pantoprazole Sodium 40 MG Tablet PO (08:27)
[2020-05-06] MEDS: Allopurinol 100 MG Tablet PO ×2 (08:28→21:05)
--- NOTE | 2020-05-06 14:14 | NURSING ---
PTS , ALEX UPDATED ON PT ROOM CHANGE & GIVEN HER ROOM PHONE #
[2020-05-06] MEDS: Mupirocin Ointment 22gm Tube 1 APPLIC TOPICAL ×2 (15:28→21:05)
[2020-05-06] MEDS: amLODIPine 5 MG Tablet PO (21:04)
[2020-05-06] MEDS: Carvedilol 6.25 MG Tablet PO (21:04)
[2020-05-06] MEDS: Pravastatin 80 MG Tablet PO (21:04)
[2020-05-06] MEDS: MELATONIN 3 MG TABLET PO (21:05)
[2020-05-07] VITALS (16 sets, daily range): BP systolic 120–133; BP diastolic 39–61; PULSE 54–71; RESP 12–30; TEMP 35.9–36.6; O2SAT 90–99
--- NOTE | 2020-05-07 06:46 | PN_ITS ---
Patient Problems: Active and Suspected Problems (Last Reviewed 05/04/20 @ 14:[address] Daphne Patel DO) CHF exacerbation (Acute) Non-ST elevation myocardial infarction (NSTEMI) (Acute) Cardiomyopathy (Acute) COVID-19 (Acute) Acute respiratory failure (Acute) Subjective: The patient was seen and examined at the bedside this morning. Events from the last 24 hours have been reviewed. The patient is currently afebrile, hemodynamically stable and maintaining appropriate oxygen saturations on BiPAP with an FiO2 requirement of 70%. The patient does not tolerate breaks from BiPAP therapy. INR remains elevated this morning at 4.2. Creatinine is stable at 1.92. Liver function profile was pending. The patient denies any significant shortness of breath, despite her high FiO2 requirement. Objective: The patient's most recent lab work, culture data and imaging studies have all been personally reviewed. Surface echocardiogram from April 2020 revealed severe segmental systolic dysfunction with an ejection fraction of 25%. Right ventricular systolic pressure was estimated to be 35 mmHg. Coronavirus PCR was positive on May 04. Blood cultures are pending. - Physical Exam Vitals/I&O's: Vital Signs Temp Pulse Resp BP Pulse Ox 97 F L 55 L 21 H 130/45 H 91 05/07/20 02:19 05/07/20 04:35 05/07/20 04:35 05/07/20 02:19 05/07/20 04:35 Oxygen Flow Rate (L/min) 13 Oxygen Delivery Method Bi-pap Weight: 195 lb 11.2 oz Body Mass Index (BMI) 30.5 Intake and Output for Last 24 Hours 05/05/20 05/06/20 05/07/20 23:59 23:59 23:59 Intake Total 1525 / 1525 1161.08 / 1161.08 Output Total 1005 / 1005 740 / 740 200 / 200 Balance 520 / 520 421.08 / 421.08 -200 / -200 General: Alert, Cooperative, - - Currently tolerating BiPAP HEENT: Atraumatic, Normocephalic Oral: Dry Mucosa Neck: Supple, No Nodes, Trachea Midline Lungs: Diminished, Rales Cardiovascular: Regular rate, Regular Rhythm Abdomen: Bowel Sounds Present, Soft, Non Tender, Obese Extremities: No clubbing, No cyanosis, No edema Skin: No breakdown Musculoskeletal: No Tenderness to Palpation of Joints or Extremities Lymphatic: No Cervical, Supraclavicular, or Inguinal Adenopathy Neurological: Cranial nerves II-XII grossly intact, Neuro grossly intact Psych/Mental Status: Normal Affect, Appropriate Labs (Last 48 Hours) 05/06/20 05/06/20 05/06/20 03:00 03:00 03:00 WBC 7.0 RBC 4.04 L Hgb 11.6 L Hct 38.3 MCV 94.8 MCH 28.7 MCHC 30.3 L RDW Std Deviation 57.5 H RDW Coeff of Geovanna 16.4 H Plt Count 286 MPV 11.3 PT 42.6 H INR 4.5 H* Sodium 137 Potassium 4.6 Chloride 103 Carbon Dioxide 24.0 Anion Gap 10 BUN 85 H Creatinine 2.36 H Estim Creat Clear Calc 20.47 Est GFR (MDRD) Af Amer 26 L Est GFR (MDRD) Non-Af 22 L BUN/Creatinine Ratio 36.0 H Glucose 252 H Calcium 8.4 L Microbiology 05/04/20 13:13 Blood Culture (Wb) #2 - Anticubital Left Blood Culture - Preliminary No growth in 48 hours. 05/04/20 12:50 Blood Culture (Wb) - Anticubital Right Blood Culture - Preliminary No growth in 48 hours. Clinical Impression(s) from Imaging Studies Chest X-Ray 05/04/20 12:55 IMPRESSION: No change in acute or chronic interstitial lung disease. Interval resolution of left lower lobe pneumonia or atelectasis. Electronically Signed: Clifton Garza MD at 13:17 EST Tel , Service support , Chest X-Ray 05/05/20 05:55 IMPRESSION: Chronic interestitial changes. Additional airspace the likely representing pneumonia, similar in severity to the previous study . at 0507 Reported and signed by: Barry Alejo MD Electronically Signed: Barry Alejo MD at 5:06 EST Tel , Service support , Current Medications Acetaminophen (Acetaminophen 325 Mg Tablet) 650 mg PO Q6H PRN PRN PRN Reason: Pain Score 1-10/Temp > 100.7 F Last Admin: 05/06/20 21:04 Dose: 650 mg Documented by: Al Hydroxide/Mg Hydroxide (Mag Hydrox/Al Hydrox/Simeth 30 Ml Udc) 30 ml PO Q6H PRN PRN PRN Reason: Gastric Burning Albuterol Sulfate (Albuterol Sulfate 8 Gm Inhaler (60 Puffs)) 1 puff INHALATION Q4H PRN PRN PRN Reason: SOB/Wheezing Last Admin: 05/06/20 05:19 Dose: 1 puff Documented by: Allopurinol (Allopurinol 100 Mg Tablet) 100 mg PO BID [facility] Last Admin: 05/06/20 21:05 Dose: 100 mg Documented by: Amlodipine Besylate (Amlodipine 5 Mg Tablet) 5 mg PO QHS [facility] Last Admin: 05/06/20 21:04 Dose: 5 mg Documented by: Carvedilol (Carvedilol 6.25 Mg Tablet) 6.25 mg PO BID [facility] Last Admin: 05/06/20 21:04 Dose: 6.25 mg Documented by: Clopidogrel Bisulfate (Clopidogrel Bisulfate 75 Mg Tablet) 75 mg PO DAILY [facility] Last Admin: 05/06/20 08:25 Dose: 75 mg Documented by: Dexamethasone (Dexamethasone 4 Mg Tablet) 6 mg PO DAILY [facility] Stop: 05/13/20 10:01 Last Admin: 05/06/20 08:27 Dose: 6 mg Documented by: Docusate Sodium (Docusate Sodium 100 Mg Capsule) 100 mg PO BID PRN PRN PRN Reason: Constipation Gabapentin (Gabapentin 300 Mg Capsule) 300 mg PO BID [facility] Last Admin: 05/06/20 21:05 Dose: 300 mg Documented by: Guaifenesin (Guaifenesin 10 Ml Udc (200mg/10ml)) 10 ml PO Q4H PRN PRN PRN Reason: COUGH Remdesivir 100 mg/ Sodium (Chloride) 250 mls @ 125 mls/hr IV DAILY [facility] Stop: 05/08/20 11:59 Last Infusion: 05/06/20 13:00 Dose: Infused Documented by: Sodium Chloride () 250 mls @ 15 mls/hr IV .[id number] PRN PRN Reason: Saline Flush Last Infusion: 05/06/20 06:05 Dose: 0 mls/hr Documented by: Sodium Chloride () 250 mls @ 15 mls/hr IV .[id number] PRN PRN Reason: Additional IVPB Infusion Melatonin (Melatonin 3 Mg Tablet) 3 mg PO QHS PRN PRN PRN Reason: INSOMNIA Last Admin: 05/06/20 21:05 Dose: 3 mg Documented by: Miscellaneous Information (Inhaler, Assist Devices 1 Each Spacer) 1 each INHALATION Q4HWA PRN PRN Reason: INHALER USE Morphine Sulfate (Morphine 2 Mg/Ml Syringe) 2 mg IV Q3H PRN PRN PRN Reason: Pain Score 6-10 Mupirocin (Mupirocin Ointment 22gm Tube) 1 applic TOPICAL BID [facility]; Protocol Nystatin (Nystatin Ointment) 1 applic TOPICAL BID [facility]; Protocol Last Admin: 05/06/20 22:15 Dose: 1 applicatio Documented by: Nystatin (Nystatin Powder 15gm Bottle) 1 applic TOPICAL BID [facility]; Protocol Ondansetron HCl (Ondansetron 4 Mg/2 Ml Vial) 4 mg IV Q8H PRN PRN PRN Reason: NAUSEA/VOMITING Last Admin: 05/05/20 09:07 Dose: 4 mg Documented by: Pantoprazole Sodium (Pantoprazole Sodium 40 Mg Tablet) 40 mg PO DAILY [facility] Last Admin: 05/06/20 08:27 Dose: 40 mg Documented by: Pravastatin Sodium (Pravastatin 80 Mg Tablet) 80 mg PO QHS [facility] Last Admin: 05/06/20 21:04 Dose: 80 mg Documented by: Sertraline HCl (Sertraline 100 Mg Tablet) 100 mg PO DAILY [facility] Last Admin: 05/06/20 08:26 Dose: 100 mg Documented by: Sodium Chloride (0.9% Saline Lock 10 Ml Syringe) 10 - 40 ml IV UD PRN PRN Reason: SALINE FLUSH Last Admin: 05/06/20 08:26 Dose: 10 ml Documented by: Medical Necessity - Tobacco Use Smoking Status: Former smoker Tobacco Use: Cigarettes Assessment/Plan All Active Problems (Last Reviewed 05/04/20 @ 14:[address] Daphne Patel DO) CHF exacerbation (Acute) Non-ST elevation myocardial infarction (NSTEMI) (Acute) CHF (congestive heart failure) (Acute) Cardiomyopathy (Acute) COVID-19 (Acute) Acute respiratory failure (Acute) NSTEMI (non-ST elevated myocardial infarction) (Resolved) RECOMMENDATIONS: 1. Continue BiPAP therapy and wean FiO2 to maintain oxygen saturations at or above 90%. 2. Attempt diuresis as tolerated by hemodynamics and renal function. 3. Continue Decadron and remdesivir as ordered. If renal function worsens, remdesivir will need to be discontinued. 4. Continue to hold Coumadin given supratherapeutic INR. 5. Check liver function profile. IMPRESSIONS: 1. Acute on chronic hypoxemic respiratory failure secondary to combined decompensated heart failure and COVID-19 pneumonia The patient will be continued on BiPAP therapy as tolerated with goals to wean her FiO2 to maintain oxygen saturations at or above 90%. Resume Lasix as tolerated by hemodynamics and renal function. The patient will be continued on Decadron and remdesivir for now. However, if the patient's kidney function continues to worsen, remdesivir will need to be discontinued. We will recheck liver function profile this morning as well. 2. Acute on chronic kidney disease Continue attempts at gentle diuresis as tolerated by renal function. 3. Coagulopathy The patient presented to the hospital with a supratherapeutic INR. Recommend continuing to hold Coumadin for now. Once INR becomes subtherapeutic, Lovenox can be initiated. 4. History of ischemic cardiomyopathy/hypertension/hyperlipidemia/peripheral vascular disease/diabetes mellitus/questionable COPD/obesity Complicates care, management, recovery and prognosis. Continue home medications as tolerated. This note was generated with [employer] dictation software. It may contain incorrect words, spelling, and punctuation that were not noted in checking the note before signing. Inpatient E&M: [id number] [facility] L3
[2020-05-07 07:48] LABS: Hematocrit 39.5 % (37-47); Hemoglobin 11.9 g/dL (12.0-15.0); Mean Corp Hgb Conc 30.1 g/dL (32-36); Mean Corpuscular Hgb 28.5 pg (27.0-32.0); Mean Corpuscular Volume 94.5 fL (81-99); Mean Platelet Vol. 11.1 fl (6.2-12.0); Platelet Count 310 K/mm3 (150-450); RBC Distribution Width CV 16.2 % (11.6-14.6); RBC Distribution Width SD 56.7 fl (35.1-43.9); Red Blood Count 4.18 M/mm3 (4.2-5.4); White Blood Count 9.4 K/mm3 (4.4-11.0)
[2020-05-07 07:51] LABS: Prothrombin Time (Protime)PT. 40.7 SECONDS (11.7-14.9)
[2020-05-07 08:14] LABS: Anion Gap 14 (5-15); BUN 88 mg/dL (7-18); BUN/Creat Ratio 45.8 RATIO (10-20); Calcium,Total 7.8 mg/dL (8.5-10.1); Chloride 104 mmol/L (98-107); Creatinine, Serum 1.92 mg/dL (0.55-1.02); EST Glomerular Filtration Rate 27 mL/min (>60); Est Glom Filt Rate - Afr Amer 33 mL/min (>60); Estimated Creatinine Clearance 25.16 ml/min; Glucose 216 mg/dL (74-106); Potassium 4.3 mmol/L (3.5-5.1); Sodium Level 136 mmol/L (136-145)
[2020-05-07 08:15] LABS: International Normalized Ratio 4.2
[2020-05-07] MEDS: Allopurinol 100 MG Tablet PO ×2 (09:15→20:17)
[2020-05-07] MEDS: Mupirocin Ointment 22gm Tube 1 APPLIC TOPICAL ×2 (09:15→20:18)
[2020-05-07] MEDS: Nystatin Powder 15gm Bottle 1 APPLIC TOPICAL ×2 (09:16→20:19)
[2020-05-07] MEDS: Gabapentin 300 MG Capsule PO ×2 (09:20→20:17)
[2020-05-07] MEDS: dexAMETHasone 4 MG Tablet 6 MG PO (09:21)
[2020-05-07] MEDS: Clopidogrel Bisulfate 75 MG Tablet PO (09:21)
[2020-05-07] MEDS: Pantoprazole Sodium 40 MG Tablet PO (09:21)
[2020-05-07 11:11] LABS: AST(SGOT) 41 U/L (15-37); Alanine Aminotransfer ALT/SGPT 13 U/L (13-56); Albumin, Serum 2.2 g/dL (3.2-5.0); Alkaline Phosphatase 76 U/L (45-117); Bilirubin, Direct 0.06 mg/dL (0.00-0.30); Globulin 4.9 g/dL (2.2-4.2); Protein, Total 7.1 g/dL (6.4-8.2)
[2020-05-07] MEDS: Furosemide 40 MG/4 ML Vial IV (11:25)
--- NOTE | 2020-05-07 11:28 | PCM.PN.HOSP ---
Patient Problems: Active and Suspected Problems (Last Reviewed 05/04/20 @ 14:[address] Daphne Patel, DO) CHF exacerbation (Acute) Non-ST elevation myocardial infarction (NSTEMI) (Acute) Cardiomyopathy (Acute) COVID-19 (Acute) Acute respiratory failure (Acute) Reason for Visit: Follow-up for acute hypoxic respiratory failure secondary to COVID-19 pneumonia. Objective: Patient shortness of breath is better but is still on 70% FiO2. Blood pressure 120/39, respiratory rate 20 to 25/min. Physical exam General: Alert, awake, oriented x3, Cooperative. On BiPAP HEENT: Atraumatic, PERRLA, EOMI, Normocephalic Oral: No Gingival or Mucosal Lesions/ Ulcerations Neck: Supple, No JVD, Negative Carotid Bruits Lungs: Air entry severely diminished in bilateral lung bases. Bilateral expiratory rhonchi present. Cardiovascular: Sinus bradycardia with PVCs. Normal S1, Normal S2, No murmurs Abdomen: Bowel Sounds Present, Soft, Non Tender, Non-Distended : Huynh catheter, yellow urine clear. No renal angle tenderness. No suprapubic tenderness. Extremities: No edema, Capillary Refill Less than 3 Seconds Skin: Small linear wound/skin tear on the left inguinal crease. calender wind up tender but healing. No surrounding abscess. Musculoskeletal: No Tenderness to Palpation of Joints or Extremities. Mild muscle atrophy of extremities and loss of subcutaneous fat. Neurological: Cranial nerves II-XII grossly intact, Deep Tendon Reflexes 2+/4 and Symmetrical, Neuro grossly intact Psych/Mental Status: Normal Affect, Appropriate. Vitals/I&O's: Vital Signs Temp Pulse Resp BP Pulse Ox 96.7 F L 57 L 20 H 120/39 L 99 05/07/20 09:10 05/07/20 09:10 05/07/20 09:10 05/07/20 09:10 05/07/20 09:10 Oxygen Flow Rate (L/min) 13 Oxygen Delivery Method Bi-pap Weight: 195 lb 11.2 oz Body Mass Index (BMI) 30.5 Intake and Output for Last 24 Hours 05/05/20 05/06/20 05/07/20 23:59 23:59 23:59 Intake Total 1525 / 1525 1161.08 / 1161.08 Output Total 1005 / 1005 740 / 740 200 / 200 Balance 520 / 520 421.08 / 421.08 -200 / -200 Microbiology Past 72 Hours 05/04/20 13:13 Blood Culture (Wb) #2 - Anticubital Left Blood Culture - Preliminary No growth in 48 hours. 05/04/20 12:50 Blood Culture (Wb) - Anticubital Right Blood Culture - Preliminary No growth in 48 hours. 05/04/20 12:56 Mucosa - Nose SARS-CoV-2 Antigen (Rapid) - Final SARS-CoV-2 (COVID 19) Laboratory Results 05/07/20 06:43: WBC 9.4, RBC 4.18 L, Hgb 11.9 L, Hct 39.5, MCV 94.5, MCH 28.5, MCHC 30.1 L, RDW Std Deviation 56.7 H, RDW Coeff of Geovanna 16.2 H, Plt Count 310, MPV 11.1 05/07/20 06:43: PT 40.7 H, INR 4.2 H* 05/07/20 06:43: Sodium 136, Potassium 4.3, Chloride 104, Carbon Dioxide 18.0 L, Anion Gap 14, BUN 88 H, Creatinine 1.92 H, Estim Creat Clear Calc 25.16, Est GFR (MDRD) Af Amer 33 L, Est GFR (MDRD) Non-Af 27 L, BUN/Creatinine Ratio 45.8 H, Glucose 216 H, Calcium 7.8 L 05/07/20 10:35: Total Bilirubin 0.50, Direct Bilirubin 0.06, AST 41 H, ALT 13, Alkaline Phosphatase 76, Total Protein 7.1, Albumin 2.2 L, Globulin 4.9 H Current Medications Acetaminophen (Acetaminophen 325 Mg Tablet) 650 mg PO Q6H PRN PRN PRN Reason: Pain Score 1-10/Temp > 100.7 F Last Admin: 05/06/20 21:04 Dose: 650 mg Documented by: Al Hydroxide/Mg Hydroxide (Mag Hydrox/Al Hydrox/Simeth 30 Ml Udc) 30 ml PO Q6H PRN PRN PRN Reason: Gastric Burning Albuterol Sulfate (Albuterol Sulfate 8 Gm Inhaler (60 Puffs)) 1 puff INHALATION Q4H PRN PRN PRN Reason: SOB/Wheezing Last Admin: 05/06/20 05:19 Dose: 1 puff Documented by: Allopurinol (Allopurinol 100 Mg Tablet) 100 mg PO BID [facility] Last Admin: 05/07/20 09:15 Dose: 100 mg Documented by: Amlodipine Besylate (Amlodipine 5 Mg Tablet) 5 mg PO QHS [facility] Last Admin: 05/06/20 21:04 Dose: 5 mg Documented by: Carvedilol (Carvedilol 6.25 Mg Tablet) 6.25 mg PO BID [facility] Last Admin: 05/07/20 09:14 Dose: Not Given Documented by: Clopidogrel Bisulfate (Clopidogrel Bisulfate 75 Mg Tablet) 75 mg PO DAILY [facility] Last Admin: 05/07/20 09:21 Dose: 75 mg Documented by: Dexamethasone (Dexamethasone 4 Mg Tablet) 6 mg PO DAILY [facility] Stop: 05/13/20 10:01 Last Admin: 05/07/20 09:21 Dose: 6 mg Documented by: Docusate Sodium (Docusate Sodium 100 Mg Capsule) 100 mg PO BID PRN PRN PRN Reason: Constipation Furosemide (Furosemide 40 Mg/4 Ml Vial) 40 mg IV DAILY [facility] Last Admin: 05/07/20 11:25 Dose: 40 mg Documented by: Gabapentin (Gabapentin 300 Mg Capsule) 300 mg PO BID [facility] Last Admin: 05/07/20 09:20 Dose: 300 mg Documented by: Guaifenesin (Guaifenesin 10 Ml Udc (200mg/10ml)) 10 ml PO Q4H PRN PRN PRN Reason: COUGH Remdesivir 100 mg/ Sodium (Chloride) 250 mls @ 125 mls/hr IV DAILY [facility] Stop: 05/08/20 11:59 Last Admin: 05/07/20 11:25 Dose: 125 mls/hr Documented by: Sodium Chloride () 250 mls @ 15 mls/hr IV .[id number] PRN PRN Reason: Saline Flush Last Infusion: 05/06/20 06:05 Dose: 0 mls/hr Documented by: Sodium Chloride () 250 mls @ 15 mls/hr IV .[id number] PRN PRN Reason: Additional IVPB Infusion Melatonin (Melatonin 3 Mg Tablet) 3 mg PO QHS PRN PRN PRN Reason: INSOMNIA Last Admin: 05/06/20 21:05 Dose: 3 mg Documented by: Miscellaneous Information (Inhaler, Assist Devices 1 Each Spacer) 1 each INHALATION Q4HWA PRN PRN Reason: INHALER USE Morphine Sulfate (Morphine 2 Mg/Ml Syringe) 2 mg IV Q3H PRN PRN PRN Reason: Pain Score 6-10 Mupirocin (Mupirocin Ointment 22gm Tube) 1 applic TOPICAL BID [facility]; Protocol Last Admin: 05/07/20 09:15 Dose: 1 applicatio Documented by: Nystatin (Nystatin Ointment) 1 applic TOPICAL BID [facility]; Protocol Last Admin: 05/07/20 09:16 Dose: Not Given Documented by: Nystatin (Nystatin Powder 15gm Bottle) 1 applic TOPICAL BID [facility]; Protocol Last Admin: 05/07/20 09:16 Dose: 1 applicatio Documented by: Ondansetron HCl (Ondansetron 4 Mg/2 Ml Vial) 4 mg IV Q8H PRN PRN PRN Reason: NAUSEA/VOMITING Last Admin: 05/05/20 09:07 Dose: 4 mg Documented by: Pantoprazole Sodium (Pantoprazole Sodium 40 Mg Tablet) 40 mg PO DAILY [facility] Last Admin: 05/07/20 09:21 Dose: 40 mg Documented by: Pravastatin Sodium (Pravastatin 80 Mg Tablet) 80 mg PO QHS [facility] Last Admin: 05/06/20 21:04 Dose: 80 mg Documented by: Sertraline HCl (Sertraline 100 Mg Tablet) 100 mg PO DAILY [facility] Last Admin: 05/06/20 08:26 Dose: 100 mg Documented by: Sodium Chloride (0.9% Saline Lock 10 Ml Syringe) 10 - 40 ml IV UD PRN PRN Reason: SALINE FLUSH Last Admin: 05/06/20 08:26 Dose: 10 ml Documented by: STROKE Vital Signs/Narrative: Vital Signs Temp Pulse Resp BP Pulse Ox 05/07/20 09:10 96.7 F L 57 L 20 H 120/39 L 99 05/07/20 08:55 57 L 25 H 91 Medical Necessity - Tobacco Use Smoking Status: Former smoker Tobacco Use: Cigarettes Assessment/Plan All Active Problems (Last Reviewed 05/04/20 @ 14:[address] Daphne Patel DO) CHF exacerbation (Acute) Non-ST elevation myocardial infarction (NSTEMI) (Acute) CHF (congestive heart failure) (Acute) Cardiomyopathy (Acute) COVID-19 (Acute) Acute respiratory failure (Acute) NSTEMI (non-ST elevated myocardial infarction) (Resolved) This 70-year-old female with multiple comorbidities including COPD was admitted with shortness of breath, nonproductive cough, generalized weakness and diarrhea. Patient had recent hospital admission from 04/20?04/25 for non-ST elevation NH and acute on chronic systolic heart failure. At that time, 2D echo EF 25% with mild pulmonary hypertension. She was treated medically. 1. Acute on chronic hypoxic respiratory failure secondary to COVID-19 pneumonia and acute on chronic HFrEF and bilateral COVID-19 pneumonia: Patient is admitted in ICU. She was on BiPAP at night, transition to AIR VO during daytime. Patient on IV remdesivir and Decadron. Strict input output. Patient on Lasix drip. Has Huynh catheter for strict intake with output monitoring. Seen by neighborhood service center director. Discussed with the fire alarm inspector and cardiac medications continued as per hemodynamic parameters permit. BNP elevated forty-six hundred. Lactic acid 2.4. ABG showed 7.4 01/28/1960 on 50% FiO2 BiPAP. CBC showed lymphopenia, ALC 0.77 thousand 1/2: Discussed with the neighborhood service center director. Patient has been transferred to [facility] cohort floor, MedSurg unit. Hypoxia is better. Blood pressure on lower side with sinus bradycardia. On amlodipine and Coreg with holding parameters. 1/3: On BiPAP alternating with high flow oxygen. Patient still tachypneic but subjective shortness of breath is better. 2. 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 Patient not on BRENDEN/ARB secondary to low blood pressure/chronic kidney disease. Her blood pressure was on lower side during previous hospitalization. And is allergic to aspirin. 2D echo 04/23/2020 Severe segmental systolic dysfunction (see wall motion). The estimated ejection fraction is 25 %. The left atrium is moderately enlarged. There is mild mitral annular calcification. Mild focal mitral valve calcification of the anterior leaflet. Trivial mitral valve insufficiency. Moderate (2+) eccentric tricuspid valve insufficiency. Trivial pulmonic valve insufficiency. Right ventricular systolic pressure estimated to be 35 mmHg. There is evidence of diastolic dysfunction. 3. CKD stage III with hypokalemia: Patient was admitted with BUN/creatinine 51/1.61, slightly went up as she is on Lasix drip. Last BUN/creatinine 51/2.07 on 04/25. Potassium on replacement. Magnesium normal 2.2. Avoid nephrotoxic medications 05/06: BUN/creatinine elevated 85/2.36. Total positive fluid balance 930 mL. Urine output 1000 mL yesterday. Lasix drip was discontinued in the morning today. 05/07: BUN/creatinine is a stable and actually better. Urine output 740 mL on 05/06 4. Peripheral arterial disease status post aortobifemoral popliteal bypass in 1988 and had complicated postop course. She had last right femoral endarterectomy with profundoplasty in January 2019. Patient on Plavix and Coumadin. Coumadin on hold as INR supratherapeutic. She has chronic pain and tenderness, chronic nonhealing ulcer with a scab on left leg 05/06: INR is still high 4.5 05/07: INR 4.2. Apply mupirocin cream the left inguinal crease small linear lesion 5. Other multiple comorbidities include hypertension, dyslipidemia, anxiety and depression, GERD: Multiple comorbidities complicates the present care and expect difficult and delay recovery CODE STATUS: As per the admitting hospitalist: Full code DVT prophylaxis: As mentioned above. Inpatient E&M: 62474 Subs Hosp L2
[2020-05-07] MEDS: 0.9% Saline Lock 10 ML Syringe IV (17:17)
[2020-05-07] MEDS: Ondansetron 4 MG/2 ML Vial IV (17:17)
--- NOTE | 2020-05-07 17:22 | NURSING ---
PT CALLED OUT TO REPORT NAUSEA. BIPAP TUBING NOTED TO BE DISCONNECTED FROM MASK. PT PLACED ON HI FLOW NASAL CANNULA AT 15L/MIN, ZOFRAN ADMIN. SPO2=99% ON 15L. PT REPORTS FEELING BETTER. WILL KEEP CANNULA IN PLACE PER PT REQUEST. WILL CONTINUE TO MONITOR.
[2020-05-07] MEDS: MELATONIN 3 MG TABLET PO (20:16)
[2020-05-07] MEDS: amLODIPine 5 MG Tablet PO (20:17)
[2020-05-07] MEDS: Acetaminophen 325 MG Tablet 650 MG PO (20:17)
[2020-05-07] MEDS: Carvedilol 6.25 MG Tablet PO (20:17)
[2020-05-07] MEDS: Pravastatin 80 MG Tablet PO (20:17)
[2020-05-07] MEDS: Nystatin Ointment 1 APPLIC TOPICAL (20:18)
--- NOTE | 2020-05-07 20:46 | CASEMGMT ---
Readmission chart review: Pt was initially admitted 04/21-04/25/2020 for Acute CHF exacerbation w/ NSTEMI. Dr. Rivera recommended transfer to tertiary care center for further intervention for NSTEMI but pt declined. Pt's EF is 25%. Pt also declined OP and HHC therapy at discharge. Pt did qualify for 2L nc continuous home oxygen and was set up with [facility]. Pt states hx of home oxygen use. See RN CM note completed on 04/21/2020. Pt then returned to [facility] ED on 05/04/2020 for SOB and was admitted to ICU for Acute resp failure/CHF and also now tested positive for COVID-19 and is on continuous bipap at this time. CM to follow PT/OT evals, increased home oxygen, and for any further discharge planning/needs. SStaten LOIS KRAUSE
[2020-05-08] VITALS (14 sets, daily range): BP systolic 124–137; BP diastolic 49–60; PULSE 58–68; RESP 12–32; TEMP 35.1–36.6; O2SAT 91–97
[2020-05-08 06:15] LABS: Hematocrit 38.4 % (37-47); Hemoglobin 12.2 g/dL (12.0-15.0); Mean Corp Hgb Conc 31.8 g/dL (32-36); Mean Corpuscular Hgb 29.3 pg (27.0-32.0); Mean Corpuscular Volume 92.1 fL (81-99); Mean Platelet Vol. 11.6 fl (6.2-12.0); Platelet Count 297 K/mm3 (150-450); Red Blood Count 4.17 M/mm3 (4.2-5.4); White Blood Count 9.4 K/mm3 (4.4-11.0)
[2020-05-08 06:32] LABS: Prothrombin Time (Protime)PT. 35.5 SECONDS (11.7-14.9)
[2020-05-08 06:35] LABS: International Normalized Ratio 3.6
[2020-05-08 06:49] LABS: ALB/GLOB Ratio 0.6 RATIO (0.9-2.4); AST(SGOT) 23 U/L (15-37); Alanine Aminotransfer ALT/SGPT 11 U/L (13-56); Albumin, Serum 2.3 g/dL (3.2-5.0); Alkaline Phosphatase 90 U/L (45-117); Anion Gap 10 (5-15); BUN 87 mg/dL (7-18); BUN/Creat Ratio 49.2 RATIO (10-20); Chloride 101 mmol/L (98-107); Creatinine, Serum 1.77 mg/dL (0.55-1.02); EST Glomerular Filtration Rate 30 mL/min (>60); Est Glom Filt Rate - Afr Amer 36 mL/min (>60); Estimated Creatinine Clearance 27.29 ml/min; Globulin 3.9 g/dL (2.2-4.2); Glucose 277 mg/dL (74-106); Potassium 4.3 mmol/L (3.5-5.1); Protein, Total 6.2 g/dL (6.4-8.2); Sodium Level 135 mmol/L (136-145)
[2020-05-08] MEDS: Allopurinol 100 MG Tablet PO ×2 (09:17→20:28)
[2020-05-08] MEDS: Furosemide 40 MG/4 ML Vial IV (09:17)
[2020-05-08] MEDS: Carvedilol 6.25 MG Tablet PO ×2 (09:17→20:28)
[2020-05-08] MEDS: dexAMETHasone 4 MG Tablet 6 MG PO (09:17)
[2020-05-08] MEDS: Pantoprazole Sodium 40 MG Tablet PO (09:17)
[2020-05-08] MEDS: Gabapentin 300 MG Capsule PO ×2 (09:17→20:28)
[2020-05-08] MEDS: Clopidogrel Bisulfate 75 MG Tablet PO (09:17)
[2020-05-08] MEDS: 0.9% Saline Lock 10 ML Syringe IV (09:18)
[2020-05-08] MEDS: Mupirocin Ointment 22gm Tube 1 APPLIC TOPICAL (09:18)
[2020-05-08] MEDS: Nystatin Ointment 1 APPLIC TOPICAL (09:19)
[2020-05-08] MEDS: Nystatin Powder 15gm Bottle 1 APPLIC TOPICAL ×2 (09:20→20:29)
--- NOTE | 2020-05-08 09:37 | NURSING ---
pt placed back on bipap. o2 84 % on 15 l after doing is.
[2020-05-08] MEDS: Sertraline 100 MG Tablet PO (12:13)
--- NOTE | 2020-05-08 13:18 | PN_ITS ---
Patient Problems: Active and Suspected Problems (Last Reviewed 05/04/20 @ 14:[address] Daphne Patel, DO) CHF exacerbation (Acute) Non-ST elevation myocardial infarction (NSTEMI) (Acute) Cardiomyopathy (Acute) COVID-19 (Acute) Acute respiratory failure (Acute) Subjective: Patient did okay overnight. No acute issues were reported. Patient overall feels subjectively unchanged compared to previous. Patient has remained on BiPAP therapy, but FiO2 requirements have improved. - Physical Exam Vitals/I&O's: Vital Signs Temp Pulse Resp BP Pulse Ox 35.1 C L 66 20 H 137/49 H 97 05/08/20 09:06 05/08/20 09:06 05/08/20 09:06 05/08/20 09:06 05/08/20 09:06 Oxygen Flow Rate (L/min) 15 Oxygen Delivery Method Nasal Cannula Weight: 88.252 kg Body Mass Index (BMI) 30.5 Intake and Output for Last 24 Hours 05/06/20 05/07/20 05/08/20 23:59 23:59 23:59 Intake Total 1161.08 / 1161.08 950 / 950 250 / 250 Output Total 740 / 740 1650 / 1650 350 / 350 Balance 421.08 / 421.08 -700 / -700 -100 / -100 General: Alert, Oriented x3, Cooperative, No apparent distress - On BiPAP therapy, - - Obese. HEENT: Atraumatic, PERRLA, EOMI, Normocephalic, - - Slight scleral injection. Oral: No Gingival or Mucosal Lesions/ Ulcerations, Dry Mucosa Neck: Supple, No Nodes, Trachea Midline Lungs: No rhonchi, No wheeze, No rales, Diminished, - - Symmetric expansion Cardiovascular: Regular rate, Regular Rhythm, Normal S1, Normal S2, No murmurs, No rub noted, No Gallop Abdomen: Bowel Sounds Present, Soft, Non Tender, Non-Distended, Obese Extremities: No clubbing, No cyanosis, No edema Skin: No rashes, No breakdown Musculoskeletal: No Tenderness to Palpation of Joints or Extremities Lymphatic: No Cervical, Supraclavicular, or Inguinal Adenopathy Neurological: Cranial nerves II-XII grossly intact, Neuro grossly intact, Motor Exam 5/5 strength throughout Psych/Mental Status: Alert and oriented to time, place, person, mood and affect Microbiology Past 72 Hours 05/04/20 13:13 Blood Culture (Wb) #2 - Anticubital Left Blood Culture - Preliminary No growth in 48 hours. 05/04/20 12:50 Blood Culture (Wb) - Anticubital Right Blood Culture - Preliminary No growth in 48 hours. Laboratory Results 05/08/20 05:35: WBC 9.4, RBC 4.17 L, Hgb 12.2, Hct 38.4, MCV 92.1, MCH 29.3, MCHC 31.8 L D, RDW Std Deviation 54.0 H, RDW Coeff of Geovanna 16.0 H, Plt Count 297, MPV 11.6 05/08/20 05:35: PT 35.5 H, INR 3.6 H* 05/08/20 05:35: Sodium 135 L, Potassium 4.3, Chloride 101, Carbon Dioxide 24.0, Anion Gap 10, BUN 87 H, Creatinine 1.77 H, Estim Creat Clear Calc 27.29, Est GFR (MDRD) Af Amer 36 L, Est GFR (MDRD) Non-Af 30 L, BUN/Creatinine Ratio 49.2 H, Glucose 277 H, Calcium 8.0 L, Total Bilirubin 0.40, AST 23, ALT 11 L, Alkaline Phosphatase 90, Total Protein 6.2 L, Albumin 2.3 L, Globulin 3.9, Albumin/Globulin Ratio 0.6 L Current Medications Acetaminophen (Acetaminophen 325 Mg Tablet) 650 mg PO Q6H PRN PRN PRN Reason: Pain Score 1-10/Temp > 100.7 F Last Admin: 05/07/20 20:17 Dose: 650 mg Documented by: Al Hydroxide/Mg Hydroxide (Mag Hydrox/Al Hydrox/Simeth 30 Ml Udc) 30 ml PO Q6H PRN PRN PRN Reason: Gastric Burning Albuterol Sulfate (Albuterol Sulfate 8 Gm Inhaler (60 Puffs)) 1 puff INHALATION Q4H PRN PRN PRN Reason: SOB/Wheezing Last Admin: 05/06/20 05:19 Dose: 1 puff Documented by: Allopurinol (Allopurinol 100 Mg Tablet) 100 mg PO BID [facility] Last Admin: 05/08/20 09:17 Dose: 100 mg Documented by: Amlodipine Besylate (Amlodipine 5 Mg Tablet) 5 mg PO QHS [facility] Last Admin: 05/07/20 20:17 Dose: 5 mg Documented by: Carvedilol (Carvedilol 6.25 Mg Tablet) 6.25 mg PO BID [facility] Last Admin: 05/08/20 09:17 Dose: 6.25 mg Documented by: Clopidogrel Bisulfate (Clopidogrel Bisulfate 75 Mg Tablet) 75 mg PO DAILY [facility] Last Admin: 05/08/20 09:17 Dose: 75 mg Documented by: Dexamethasone (Dexamethasone 4 Mg Tablet) 6 mg PO DAILY [facility] Stop: 05/13/20 10:01 Last Admin: 05/08/20 09:17 Dose: 6 mg Documented by: Docusate Sodium (Docusate Sodium 100 Mg Capsule) 100 mg PO BID PRN PRN PRN Reason: Constipation Furosemide (Furosemide 40 Mg/4 Ml Vial) 40 mg IV DAILY [facility] Last Admin: 05/08/20 09:17 Dose: 40 mg Documented by: Gabapentin (Gabapentin 300 Mg Capsule) 300 mg PO BID [facility] Last Admin: 05/08/20 09:17 Dose: 300 mg Documented by: Guaifenesin (Guaifenesin 10 Ml Udc (200mg/10ml)) 10 ml PO Q4H PRN PRN PRN Reason: COUGH Sodium Chloride () 250 mls @ 15 mls/hr IV .[id number] PRN PRN Reason: Saline Flush Last Infusion: 05/06/20 06:05 Dose: 0 mls/hr Documented by: Sodium Chloride () 250 mls @ 15 mls/hr IV .[id number] PRN PRN Reason: Additional IVPB Infusion Melatonin (Melatonin 3 Mg Tablet) 3 mg PO QHS PRN PRN PRN Reason: INSOMNIA Last Admin: 05/07/20 20:16 Dose: 3 mg Documented by: Miscellaneous Information (Inhaler, Assist Devices 1 Each Spacer) 1 each INHALATION Q4HWA PRN PRN Reason: INHALER USE Morphine Sulfate (Morphine 2 Mg/Ml Syringe) 2 mg IV Q3H PRN PRN PRN Reason: Pain Score 6-10 Mupirocin (Mupirocin Ointment 22gm Tube) 1 applic TOPICAL BID [facility]; Protocol Last Admin: 05/08/20 09:18 Dose: 1 applicatio Documented by: Nystatin (Nystatin Ointment) 1 applic TOPICAL BID [facility]; Protocol Last Admin: 05/08/20 09:19 Dose: 1 applicatio Documented by: Nystatin (Nystatin Powder 15gm Bottle) 1 applic TOPICAL BID [facility]; Protocol Last Admin: 05/08/20 09:20 Dose: 1 applicatio Documented by: Ondansetron HCl (Ondansetron 4 Mg/2 Ml Vial) 4 mg IV Q8H PRN PRN PRN Reason: NAUSEA/VOMITING Last Admin: 05/07/20 17:17 Dose: 4 mg Documented by: Pantoprazole Sodium (Pantoprazole Sodium 40 Mg Tablet) 40 mg PO DAILY [facility] Last Admin: 05/08/20 09:17 Dose: 40 mg Documented by: Pravastatin Sodium (Pravastatin 80 Mg Tablet) 80 mg PO QHS [facility] Last Admin: 05/07/20 20:17 Dose: 80 mg Documented by: Sertraline HCl (Sertraline 100 Mg Tablet) 100 mg PO DAILY [facility] Last Admin: 05/08/20 12:13 Dose: 100 mg Documented by: Sodium Chloride (0.9% Saline Lock 10 Ml Syringe) 10 - 40 ml IV UD PRN PRN Reason: SALINE FLUSH Last Admin: 05/08/20 09:18 Dose: 10 ml Documented by: Medical Necessity - Tobacco Use Smoking Status: Former smoker Tobacco Use: Cigarettes Assessment/Plan All Active Problems (Last Reviewed 05/04/20 @ 14:[address] Daphne Patel DO) CHF exacerbation (Acute) Non-ST elevation myocardial infarction (NSTEMI) (Acute) CHF (congestive heart failure) (Acute) Cardiomyopathy (Acute) COVID-19 (Acute) Acute respiratory failure (Acute) NSTEMI (non-ST elevated myocardial infarction) (Resolved) RECOMMENDATIONS: 1. Continue BiPAP therapy and wean FiO2 to maintain oxygen saturations at or above 90%. BiPAP breaks as tolerated while not sleeping 2. Attempt diuresis as tolerated by hemodynamics and renal function. 3. Continue Decadron and remdesivir as ordered. If renal function worsens, remdesivir will need to be discontinued. 4. Continue to hold Coumadin given supratherapeutic INR. 5. Okay to continue with remdesivir for now IMPRESSIONS: 1. Acute on chronic hypoxemic respiratory failure secondary to combined decompensated heart failure and COVID-19 pneumonia The patient will be continued on BiPAP therapy as tolerated with goals to wean her FiO2 to maintain oxygen saturations at or above 90%. Resume Lasix as tolerated by hemodynamics and renal function. The patient will be continued on Decadron and remdesivir for now. However, if the patient's kidney function continues to worsen, remdesivir will need to be discontinued. Liver function is appropriate. We will continue to monitor on a daily basis 2. Acute on chronic kidney disease Continue attempts at gentle diuresis as tolerated by renal function. Lasix scheduled daily appears to be tolerating 3. Coagulopathy The patient presented to the hospital with a supratherapeutic INR. Recommend continuing to hold Coumadin for now. Once INR becomes subtherapeutic, Lovenox can be initiated. No bleeding complications have been noted, so active reversal is not indicated. 4. History of ischemic cardiomyopathy/hypertension/hyperlipidemia/peripheral vascular disease/diabetes mellitus/questionable COPD/obesity Complicates care, management, recovery and prognosis. Continue home medications as tolerated. Inpatient E&M: 58457 [facility] L2
[2020-05-08 13:22] LABS: Pathologist Review Reviewed
--- NOTE | 2020-05-08 17:44 | PCM.PROGNOTE ---
Patient Problems: Active and Suspected Problems (Last Reviewed 05/04/20 @ 14:[address] Daphne Patel, DO) CHF exacerbation (Acute) Non-ST elevation myocardial infarction (NSTEMI) (Acute) Cardiomyopathy (Acute) COVID-19 (Acute) Acute respiratory failure (Acute) Subjective: Patient was seen and examined today, she is currently on 15 L via nasal cannula, she has a nasal cannula in her mouth-she states I am a mouth breather. Patient has no complaints of any chest pain, fevers, or chills. - Physical Exam Vitals/I&O's: Vital Signs Temp Pulse Resp BP Pulse Ox 97.0 F L 68 32 H 130/60 H 93 05/08/20 14:02 05/08/20 15:22 05/08/20 15:22 05/08/20 14:02 05/08/20 15:27 Oxygen Flow Rate (L/min) 15 Oxygen Delivery Method Nasal Cannula Weight: 88.252 kg Body Mass Index (BMI) 30.5 Intake and Output for Last 24 Hours 05/06/20 05/07/20 05/08/20 23:59 23:59 23:59 Intake Total 1161.08 / 1161.08 950 / 950 250 / 250 Output Total 740 / 740 1650 / 1650 1000 / 1000 Balance 421.08 / 421.08 -700 / -700 -750 / -750 General: Alert, Oriented x3, Cooperative, No apparent distress, Well developed, Well nourished HEENT: Atraumatic, PERRLA, EOMI, Normocephalic Oral: Moist Mucosa Neck: Supple, No JVD, Trachea Midline, Thyroid Normal Size and Texture Lungs: Clear to auscultation, Normal air movement, No rhonchi, No wheeze, No rales Cardiovascular: Regular rate, Regular Rhythm, Normal S1, Normal S2, No murmurs, PMI Normal, No rub noted, No Gallop Abdomen: Bowel Sounds Present, Soft, Non Tender, Non-Distended Extremities: No clubbing, No cyanosis, No edema, Capillary Refill Less than 3 Seconds Skin: No rashes, No breakdown Musculoskeletal: No Tenderness to Palpation of Joints or Extremities Neurological: Cranial nerves II-XII grossly intact, Neuro grossly intact, Sensory exam intact to light touch and pain Psych/Mental Status: Normal Affect, Appropriate, Alert and oriented to time, place, person, mood and affect Microbiology Past 72 Hours 05/04/20 13:13 Blood Culture (Wb) #2 - Anticubital Left Blood Culture - Preliminary No growth in 48 hours. 05/04/20 12:50 Blood Culture (Wb) - Anticubital Right Blood Culture - Preliminary No growth in 48 hours. Laboratory Results 05/05/20 04:30: Diff Path Review Reviewed 05/08/20 05:35: WBC 9.4, RBC 4.17 L, Hgb 12.2, Hct 38.4, MCV 92.1, MCH 29.3, MCHC 31.8 L D, RDW Std Deviation 54.0 H, RDW Coeff of Geovanna 16.0 H, Plt Count 297, MPV 11.6 05/08/20 05:35: PT 35.5 H, INR 3.6 H* 05/08/20 05:35: Sodium 135 L, Potassium 4.3, Chloride 101, Carbon Dioxide 24.0, Anion Gap 10, BUN 87 H, Creatinine 1.77 H, Estim Creat Clear Calc 27.29, Est GFR (MDRD) Af Amer 36 L, Est GFR (MDRD) Non-Af 30 L, BUN/Creatinine Ratio 49.2 H, Glucose 277 H, Calcium 8.0 L, Total Bilirubin 0.40, AST 23, ALT 11 L, Alkaline Phosphatase 90, Total Protein 6.2 L, Albumin 2.3 L, Globulin 3.9, Albumin/Globulin Ratio 0.6 L Current Medications Acetaminophen (Acetaminophen 325 Mg Tablet) 650 mg PO Q6H PRN PRN PRN Reason: Pain Score 1-10/Temp > 100.7 F Last Admin: 05/07/20 20:17 Dose: 650 mg Documented by: Al Hydroxide/Mg Hydroxide (Mag Hydrox/Al Hydrox/Simeth 30 Ml Udc) 30 ml PO Q6H PRN PRN PRN Reason: Gastric Burning Albuterol Sulfate (Albuterol Sulfate 8 Gm Inhaler (60 Puffs)) 1 puff INHALATION Q4H PRN PRN PRN Reason: SOB/Wheezing Last Admin: 05/06/20 05:19 Dose: 1 puff Documented by: Allopurinol (Allopurinol 100 Mg Tablet) 100 mg PO BID [facility] Last Admin: 05/08/20 09:17 Dose: 100 mg Documented by: Amlodipine Besylate (Amlodipine 5 Mg Tablet) 5 mg PO QHS [facility] Last Admin: 05/07/20 20:17 Dose: 5 mg Documented by: Carvedilol (Carvedilol 6.25 Mg Tablet) 6.25 mg PO BID [facility] Last Admin: 05/08/20 09:17 Dose: 6.25 mg Documented by: Clopidogrel Bisulfate (Clopidogrel Bisulfate 75 Mg Tablet) 75 mg PO DAILY [facility] Last Admin: 05/08/20 09:17 Dose: 75 mg Documented by: Dexamethasone (Dexamethasone 4 Mg Tablet) 6 mg PO DAILY [facility] Stop: 05/13/20 10:01 Last Admin: 05/08/20 09:17 Dose: 6 mg Documented by: Docusate Sodium (Docusate Sodium 100 Mg Capsule) 100 mg PO BID PRN PRN PRN Reason: Constipation Furosemide (Furosemide 40 Mg/4 Ml Vial) 40 mg IV DAILY [facility] Last Admin: 05/08/20 09:17 Dose: 40 mg Documented by: Gabapentin (Gabapentin 300 Mg Capsule) 300 mg PO BID [facility] Last Admin: 05/08/20 09:17 Dose: 300 mg Documented by: Guaifenesin (Guaifenesin 10 Ml Udc (200mg/10ml)) 10 ml PO Q4H PRN PRN PRN Reason: COUGH Sodium Chloride () 250 mls @ 15 mls/hr IV .[id number] PRN PRN Reason: Saline Flush Last Infusion: 05/06/20 06:05 Dose: 0 mls/hr Documented by: Sodium Chloride () 250 mls @ 15 mls/hr IV .[id number] PRN PRN Reason: Additional IVPB Infusion Melatonin (Melatonin 3 Mg Tablet) 3 mg PO QHS PRN PRN PRN Reason: INSOMNIA Last Admin: 05/07/20 20:16 Dose: 3 mg Documented by: Miscellaneous Information (Inhaler, Assist Devices 1 Each Spacer) 1 each INHALATION Q4HWA PRN PRN Reason: INHALER USE Morphine Sulfate (Morphine 2 Mg/Ml Syringe) 2 mg IV Q3H PRN PRN PRN Reason: Pain Score 6-10 Mupirocin (Mupirocin Ointment 22gm Tube) 1 applic TOPICAL BID [facility]; Protocol Last Admin: 05/08/20 09:18 Dose: 1 applicatio Documented by: Nystatin (Nystatin Ointment) 1 applic TOPICAL BID [facility]; Protocol Last Admin: 05/08/20 09:19 Dose: 1 applicatio Documented by: Nystatin (Nystatin Powder 15gm Bottle) 1 applic TOPICAL BID [facility]; Protocol Last Admin: 05/08/20 09:20 Dose: 1 applicatio Documented by: Ondansetron HCl (Ondansetron 4 Mg/2 Ml Vial) 4 mg IV Q8H PRN PRN PRN Reason: NAUSEA/VOMITING Last Admin: 05/07/20 17:17 Dose: 4 mg Documented by: Pantoprazole Sodium (Pantoprazole Sodium 40 Mg Tablet) 40 mg PO DAILY [facility] Last Admin: 05/08/20 09:17 Dose: 40 mg Documented by: Pravastatin Sodium (Pravastatin 80 Mg Tablet) 80 mg PO QHS [facility] Last Admin: 05/07/20 20:17 Dose: 80 mg Documented by: Sertraline HCl (Sertraline 100 Mg Tablet) 100 mg PO DAILY [facility] Last Admin: 05/08/20 12:13 Dose: 100 mg Documented by: Sodium Chloride (0.9% Saline Lock 10 Ml Syringe) 10 - 40 ml IV UD PRN PRN Reason: SALINE FLUSH Last Admin: 05/08/20 09:18 Dose: 10 ml Documented by: Medical Necessity - Tobacco Use Smoking Status: Former smoker Tobacco Use: Cigarettes Assessment/Plan All Active Problems (Last Reviewed 05/04/20 @ 14:[address] Daphne Patel, DO) CHF exacerbation (Acute) Non-ST elevation myocardial infarction (NSTEMI) (Acute) CHF (congestive heart failure) (Acute) Cardiomyopathy (Acute) COVID-19 (Acute) Acute respiratory failure (Acute) NSTEMI (non-ST elevated myocardial infarction) (Resolved) #1 acute on chronic hypoxic respiratory failure secondary to COVID-19 pneumonia and underlying acute on chronic systolic congestive heart failure-patient will remain on remdesivir and Decadron #2 acute on chronic systolic congestive heart failure-patient remains on Lasix at this time #3 chronic kidney disease stage III-BMP will be monitored #4 coagulopathy secondary to Coumadin usage-patient's INR is supratherapeutic, Coumadin has been held, INR will be rechecked #5 atherosclerotic heart disease #6 ischemic cardiomyopathy #7 type 2 diabetes-continue to monitor blood sugars #8 COVID-19 pneumonia Inpatient E&M: 33113 Subs Hosp L2
[2020-05-08] MEDS: amLODIPine 5 MG Tablet PO (20:28)
[2020-05-08] MEDS: Pravastatin 80 MG Tablet PO (20:28)
[2020-05-09] VITALS (20 sets, daily range): BP systolic 127–141; BP diastolic 53–62; PULSE 57–73; RESP 12–25; TEMP 36.5–36.8; O2SAT 88–95
[2020-05-09] MEDS: Docusate Sodium 100 MG Capsule PO (00:59)
[2020-05-09] MEDS: Acetaminophen 325 MG Tablet 650 MG PO (00:59)
[2020-05-09 05:29] LABS: Hematocrit 36.7 % (37-47); Hemoglobin 11.3 g/dL (12.0-15.0); Mean Corp Hgb Conc 30.8 g/dL (32-36); Mean Corpuscular Hgb 28.4 pg (27.0-32.0); Mean Corpuscular Volume 92.2 fL (81-99); Mean Platelet Vol. 10.4 fl (6.2-12.0); Platelet Count 268 K/mm3 (150-450); RBC Distribution Width CV 15.9 % (11.6-14.6); RBC Distribution Width SD 54.3 fl (35.1-43.9); Red Blood Count 3.98 M/mm3 (4.2-5.4)
[2020-05-09 05:39] LABS: Prothrombin Time (Protime)PT. 30.7 SECONDS (11.7-14.9)
[2020-05-09] MEDS: 0.9% Saline Lock 10 ML Syringe IV ×2 (09:02→12:41)
[2020-05-09] MEDS: dexAMETHasone 4 MG Tablet 6 MG PO (09:02)
[2020-05-09] MEDS: Sertraline 100 MG Tablet PO (09:02)
[2020-05-09] MEDS: Allopurinol 100 MG Tablet PO ×2 (09:02→23:05)
[2020-05-09] MEDS: Clopidogrel Bisulfate 75 MG Tablet PO (09:02)
[2020-05-09] MEDS: Furosemide 40 MG/4 ML Vial IV (09:03)
[2020-05-09] MEDS: Carvedilol 6.25 MG Tablet PO ×2 (09:03→23:05)
[2020-05-09] MEDS: Pantoprazole Sodium 40 MG Tablet PO (09:03)
[2020-05-09] MEDS: Gabapentin 300 MG Capsule PO ×2 (09:03→23:05)
[2020-05-09] MEDS: Nystatin Powder 15gm Bottle 1 APPLIC TOPICAL ×2 (09:04→23:05)
--- NOTE | 2020-05-09 11:55 | CASEMGMT ---
RN CM Note: [facility] 2L [facility] Susanne BAHENAN RN ACM
[2020-05-09] MEDS: Ondansetron 4 MG/2 ML Vial IV (12:41)
--- NOTE | 2020-05-09 13:41 | PCM.PN.PUL ---
Patient Problems: Active and Suspected Problems (Last Reviewed 05/04/20 @ 14:[address] Daphne Patel, DO) CHF exacerbation (Acute) Non-ST elevation myocardial infarction (NSTEMI) (Acute) Cardiomyopathy (Acute) COVID-19 (Acute) Acute respiratory failure (Acute) Subjective: Patient did okay overnight. Patient was on high flow nasal cannula during my evaluation. Patient states that she was tolerating it okay despite requiring BiPAP overnight, but it was too high flow to be in her nose. Patient described herself as a mouth breather and had the oxygen in her mouth. Patient denies any chest pain and felt subjectively unchanged compared to previous. - Physical Exam Vitals/I&O's: Vital Signs Temp Pulse Resp BP Pulse Ox 36.5 C L 71 25 H 141/53 H 92 05/09/20 08:55 05/09/20 11:05 05/09/20 11:05 05/09/20 08:55 05/09/20 11:05 Oxygen Flow Rate (L/min) 15 Oxygen Delivery Method Nasal Cannula Weight: 88 kg Body Mass Index (BMI) 30.5 Intake and Output for Last 24 Hours 05/07/20 05/08/20 05/09/20 23:59 23:59 23:59 Intake Total 950 / 950 400 / 400 500 / 500 Output Total 1650 / 1650 1400 / 1400 425 / 425 Balance -700 / -700 -1000 / -1000 75 / 75 General: Alert, Oriented x3, Cooperative, No apparent distress, - - No conversational dyspnea. Obese. HEENT: Atraumatic, PERRLA, EOMI, Normocephalic, - - No scleral icterus or injection noted Oral: Moist Mucosa, No Gingival or Mucosal Lesions/ Ulcerations Neck: Supple, No JVD, No Nodes, Trachea Midline Lungs: No rhonchi, No wheeze, No rales, Diminished, - - Symmetric expansion. No dullness to percussion. Cardiovascular: Regular rate, Regular Rhythm, Normal S1, Normal S2, No murmurs, No rub noted, No Gallop Abdomen: Bowel Sounds Present, Soft, Non Tender, Non-Distended, Obese Extremities: No clubbing, No cyanosis, No edema Skin: - - No change from previous Musculoskeletal: No Tenderness to Palpation of Joints or Extremities Lymphatic: No Cervical, Supraclavicular, or Inguinal Adenopathy Neurological: Cranial nerves II-XII grossly intact, Deep Tendon Reflexes 2+/4 and Symmetrical Psych/Mental Status: Normal Affect, Appropriate Microbiology Past 72 Hours 05/04/20 13:13 Blood Culture (Wb) #2 - Anticubital Left Blood Culture - Final No growth in 5 days. 05/04/20 12:50 Blood Culture (Wb) - Anticubital Right Blood Culture - Final No growth in 5 days. Laboratory Results 05/09/20 05:04: WBC 10.0, RBC 3.98 L, Hgb 11.3 L, Hct 36.7 L, MCV 92.2, MCH 28.4, MCHC 30.8 L, RDW Std Deviation 54.3 H, RDW Coeff of Geovanna 15.9 H, Plt Count 268, MPV 10.4 05/09/20 05:04: PT 30.7 H, INR 3.0 Current Medications Acetaminophen (Acetaminophen 325 Mg Tablet) 650 mg PO Q6H PRN PRN PRN Reason: Pain Score 1-10/Temp > 100.7 F Last Admin: 05/09/20 00:59 Dose: 650 mg Documented by: Al Hydroxide/Mg Hydroxide (Mag Hydrox/Al Hydrox/Simeth 30 Ml Udc) 30 ml PO Q6H PRN PRN PRN Reason: Gastric Burning Albuterol Sulfate (Albuterol Sulfate 8 Gm Inhaler (60 Puffs)) 1 puff INHALATION Q4H PRN PRN PRN Reason: SOB/Wheezing Last Admin: 05/06/20 05:19 Dose: 1 puff Documented by: Allopurinol (Allopurinol 100 Mg Tablet) 100 mg PO BID [facility] Last Admin: 05/09/20 09:02 Dose: 100 mg Documented by: Amlodipine Besylate (Amlodipine 5 Mg Tablet) 5 mg PO QHS [facility] Last Admin: 05/08/20 20:28 Dose: 5 mg Documented by: Carvedilol (Carvedilol 6.25 Mg Tablet) 6.25 mg PO BID [facility] Last Admin: 05/09/20 09:03 Dose: 6.25 mg Documented by: Clopidogrel Bisulfate (Clopidogrel Bisulfate 75 Mg Tablet) 75 mg PO DAILY [facility] Last Admin: 05/09/20 09:02 Dose: 75 mg Documented by: Dexamethasone (Dexamethasone 4 Mg Tablet) 6 mg PO DAILY [facility] Stop: 05/13/20 10:01 Last Admin: 05/09/20 09:02 Dose: 6 mg Documented by: Docusate Sodium (Docusate Sodium 100 Mg Capsule) 100 mg PO BID PRN PRN PRN Reason: Constipation Last Admin: 05/09/20 00:59 Dose: 100 mg Documented by: Furosemide (Furosemide 40 Mg/4 Ml Vial) 40 mg IV DAILY [facility] Last Admin: 05/09/20 09:03 Dose: 40 mg Documented by: Gabapentin (Gabapentin 300 Mg Capsule) 300 mg PO BID [facility] Last Admin: 05/09/20 09:03 Dose: 300 mg Documented by: Guaifenesin (Guaifenesin 10 Ml Udc (200mg/10ml)) 10 ml PO Q4H PRN PRN PRN Reason: COUGH Sodium Chloride () 250 mls @ 15 mls/hr IV .[id number] PRN PRN Reason: Saline Flush Last Infusion: 05/06/20 06:05 Dose: 0 mls/hr Documented by: Sodium Chloride () 250 mls @ 15 mls/hr IV .[id number] PRN PRN Reason: Additional IVPB Infusion Melatonin (Melatonin 3 Mg Tablet) 3 mg PO QHS PRN PRN PRN Reason: INSOMNIA Last Admin: 05/07/20 20:16 Dose: 3 mg Documented by: Miscellaneous Information (Inhaler, Assist Devices 1 Each Spacer) 1 each INHALATION Q4HWA PRN PRN Reason: INHALER USE Morphine Sulfate (Morphine 2 Mg/Ml Syringe) 2 mg IV Q3H PRN PRN PRN Reason: Pain Score 6-10 Nystatin (Nystatin Powder 15gm Bottle) 1 applic TOPICAL BID [facility]; Protocol Last Admin: 05/09/20 09:04 Dose: 1 applicatio Documented by: Ondansetron HCl (Ondansetron 4 Mg/2 Ml Vial) 4 mg IV Q8H PRN PRN PRN Reason: NAUSEA/VOMITING Last Admin: 05/09/20 12:41 Dose: 4 mg Documented by: Pantoprazole Sodium (Pantoprazole Sodium 40 Mg Tablet) 40 mg PO DAILY [facility] Last Admin: 05/09/20 09:03 Dose: 40 mg Documented by: Pravastatin Sodium (Pravastatin 80 Mg Tablet) 80 mg PO QHS [facility] Last Admin: 05/08/20 20:28 Dose: 80 mg Documented by: Sertraline HCl (Sertraline 100 Mg Tablet) 100 mg PO DAILY [facility] Last Admin: 05/09/20 09:02 Dose: 100 mg Documented by: Sodium Chloride (0.9% Saline Lock 10 Ml Syringe) 10 - 40 ml IV UD PRN PRN Reason: SALINE FLUSH Last Admin: 05/09/20 12:41 Dose: 10 ml Documented by: Medical Necessity - Tobacco Use Smoking Status: Former smoker Tobacco Use: Cigarettes Assessment/Plan All Active Problems (Last Reviewed 05/04/20 @ 14:[address] Daphne Patel, DO) CHF exacerbation (Acute) Non-ST elevation myocardial infarction (NSTEMI) (Acute) CHF (congestive heart failure) (Acute) Cardiomyopathy (Acute) COVID-19 (Acute) Acute respiratory failure (Acute) NSTEMI (non-ST elevated myocardial infarction) (Resolved) RECOMMENDATIONS: 1. Continue BiPAP therapy and wean FiO2 to maintain oxygen saturations at or above 90%. BiPAP breaks as tolerated while not sleeping 2. Attempt diuresis as tolerated by hemodynamics and renal function. 3. Continue Decadron. Completed remdesivir. 4. Continue to hold Coumadin given supratherapeutic INR. 5. Increase activity as tolerated IMPRESSIONS: 1. Acute on chronic hypoxemic respiratory failure secondary to combined decompensated heart failure and COVID-19 pneumonia The patient will be continued on BiPAP therapy as tolerated with goals to wean her FiO2 to maintain oxygen saturations at or above 90%. Resume Lasix as tolerated by hemodynamics and renal function. The patient will be continued on Decadron. Remdesivir has been completed. Liver function appears to be appropriate. Likely not necessary to monitor liver function from my perspective. 2. Acute on chronic kidney disease Continue attempts at gentle diuresis as tolerated by renal function. Lasix scheduled daily appears to be tolerating. Patient is achieving a negative fluid balance on a daily basis with current regimen. 3. Coagulopathy The patient presented to the hospital with a supratherapeutic INR. Recommend continuing to hold Coumadin for now. Once INR becomes subtherapeutic, Lovenox can be initiated. No bleeding complications have been noted, so active reversal is not indicated. 4. History of ischemic cardiomyopathy/hypertension/hyperlipidemia/peripheral vascular disease/diabetes mellitus/questionable COPD/obesity Complicates care, management, recovery and prognosis. Continue home medications as tolerated. Inpatient E&M: 82099 Subs Hosp L2
--- NOTE | 2020-05-09 17:52 | PN_ITS ---
Patient Problems: Active and Suspected Problems (Last Reviewed 05/04/20 @ 14:[address] Daphne Patel, DO) CHF exacerbation (Acute) Non-ST elevation myocardial infarction (NSTEMI) (Acute) Cardiomyopathy (Acute) COVID-19 (Acute) Acute respiratory failure (Acute) Subjective: She was seen and examined today, she is currently on high flow oxygen with BiPAP. She has no complaints of any chills or fevers. Patient's INR today was 3. Objective: General: Alert, Oriented x3, Cooperative, No apparent distress, Well developed, Well nourished HEENT: Atraumatic, PERRLA, EOMI, Normocephalic Oral: Moist Mucosa Neck: Supple, No JVD, Trachea Midline, Thyroid Normal Size and Texture Lungs: Clear to auscultation, Normal air movement, No rhonchi, No wheeze, No rales Cardiovascular: Regular rate, Regular Rhythm, Normal S1, Normal S2, No murmurs, PMI Normal, No rub noted, No Gallop Abdomen: Bowel Sounds Present, Soft, Non Tender, Non-Distended Extremities: No clubbing, No cyanosis, No edema, Capillary Refill Less than 3 Seconds Skin: No rashes, No breakdown Musculoskeletal: No Tenderness to Palpation of Joints or Extremities Neurological: Cranial nerves II-XII grossly intact, Neuro grossly intact, Sensory exam intact to light touch and pain Psych/Mental Status: Normal Affect, Appropriate, Alert and oriented to time, place, person, mood and affect - Physical Exam Vitals/I&O's: Vital Signs Temp Pulse Resp BP Pulse Ox 97.9 F 69 18 132/62 H 90 05/09/20 15:00 05/09/20 15:00 05/09/20 15:00 05/09/20 15:00 05/09/20 15:39 Oxygen Flow Rate (L/min) 15 Oxygen Delivery Method Nasal Cannula Weight: 88 kg Body Mass Index (BMI) 30.5 Intake and Output for Last 24 Hours 05/07/20 05/08/20 05/09/20 23:59 23:59 23:59 Intake Total 950 / 950 400 / 400 500 / 500 Output Total 1650 / 1650 1400 / 1400 1425 / 1425 Balance -700 / -700 -1000 / -1000 -925 / -925 Microbiology Past 72 Hours 05/04/20 13:13 Blood Culture (Wb) #2 - Anticubital Left Blood Culture - Final No growth in 5 days. 05/04/20 12:50 Blood Culture (Wb) - Anticubital Right Blood Culture - Final No growth in 5 days. Laboratory Results 05/09/20 05:04: WBC 10.0, RBC 3.98 L, Hgb 11.3 L, Hct 36.7 L, MCV 92.2, MCH 28.4, MCHC 30.8 L, RDW Std Deviation 54.3 H, RDW Coeff of Geovanna 15.9 H, Plt Count 268, MPV 10.4 05/09/20 05:04: PT 30.7 H, INR 3.0 Current Medications Acetaminophen (Acetaminophen 325 Mg Tablet) 650 mg PO Q6H PRN PRN PRN Reason: Pain Score 1-10/Temp > 100.7 F Last Admin: 05/09/20 00:59 Dose: 650 mg Documented by: Al Hydroxide/Mg Hydroxide (Mag Hydrox/Al Hydrox/Simeth 30 Ml Udc) 30 ml PO Q6H PRN PRN PRN Reason: Gastric Burning Albuterol Sulfate (Albuterol Sulfate 8 Gm Inhaler (60 Puffs)) 1 puff INHALATION Q4H PRN PRN PRN Reason: SOB/Wheezing Last Admin: 05/06/20 05:19 Dose: 1 puff Documented by: Allopurinol (Allopurinol 100 Mg Tablet) 100 mg PO BID [facility] Last Admin: 05/09/20 09:02 Dose: 100 mg Documented by: Amlodipine Besylate (Amlodipine 5 Mg Tablet) 5 mg PO QHS [facility] Last Admin: 05/08/20 20:28 Dose: 5 mg Documented by: Carvedilol (Carvedilol 6.25 Mg Tablet) 6.25 mg PO BID [facility] Last Admin: 05/09/20 09:03 Dose: 6.25 mg Documented by: Clopidogrel Bisulfate (Clopidogrel Bisulfate 75 Mg Tablet) 75 mg PO DAILY [facility] Last Admin: 05/09/20 09:02 Dose: 75 mg Documented by: Dexamethasone (Dexamethasone 4 Mg Tablet) 6 mg PO DAILY [facility] Stop: 05/13/20 10:01 Last Admin: 05/09/20 09:02 Dose: 6 mg Documented by: Docusate Sodium (Docusate Sodium 100 Mg Capsule) 100 mg PO BID PRN PRN PRN Reason: Constipation Last Admin: 05/09/20 00:59 Dose: 100 mg Documented by: Furosemide (Furosemide 40 Mg/4 Ml Vial) 40 mg IV DAILY [facility] Last Admin: 05/09/20 09:03 Dose: 40 mg Documented by: Gabapentin (Gabapentin 300 Mg Capsule) 300 mg PO BID [facility] Last Admin: 05/09/20 09:03 Dose: 300 mg Documented by: Guaifenesin (Guaifenesin 10 Ml Udc (200mg/10ml)) 10 ml PO Q4H PRN PRN PRN Reason: COUGH Sodium Chloride () 250 mls @ 15 mls/hr IV .[id number] PRN PRN Reason: Saline Flush Last Infusion: 05/06/20 06:05 Dose: 0 mls/hr Documented by: Sodium Chloride () 250 mls @ 15 mls/hr IV .[id number] PRN PRN Reason: Additional IVPB Infusion Melatonin (Melatonin 3 Mg Tablet) 3 mg PO QHS PRN PRN PRN Reason: INSOMNIA Last Admin: 05/07/20 20:16 Dose: 3 mg Documented by: Miscellaneous Information (Inhaler, Assist Devices 1 Each Spacer) 1 each INHALATION Q4HWA PRN PRN Reason: INHALER USE Morphine Sulfate (Morphine 2 Mg/Ml Syringe) 2 mg IV Q3H PRN PRN PRN Reason: Pain Score 6-10 Nystatin (Nystatin Powder 15gm Bottle) 1 applic TOPICAL BID [facility]; Protocol Last Admin: 05/09/20 09:04 Dose: 1 applicatio Documented by: Ondansetron HCl (Ondansetron 4 Mg/2 Ml Vial) 4 mg IV Q8H PRN PRN PRN Reason: NAUSEA/VOMITING Last Admin: 05/09/20 12:41 Dose: 4 mg Documented by: Pantoprazole Sodium (Pantoprazole Sodium 40 Mg Tablet) 40 mg PO DAILY [facility] Last Admin: 05/09/20 09:03 Dose: 40 mg Documented by: Pravastatin Sodium (Pravastatin 80 Mg Tablet) 80 mg PO QHS [facility] Last Admin: 05/08/20 20:28 Dose: 80 mg Documented by: Sertraline HCl (Sertraline 100 Mg Tablet) 100 mg PO DAILY [facility] Last Admin: 05/09/20 09:02 Dose: 100 mg Documented by: Sodium Chloride (0.9% Saline Lock 10 Ml Syringe) 10 - 40 ml IV UD PRN PRN Reason: SALINE FLUSH Last Admin: 05/09/20 12:41 Dose: 10 ml Documented by: Medical Necessity - Tobacco Use Smoking Status: Former smoker Tobacco Use: Cigarettes Assessment/Plan All Active Problems (Last Reviewed 05/04/20 @ 14:[address] Daphne Patel, DO) CHF exacerbation (Acute) Non-ST elevation myocardial infarction (NSTEMI) (Acute) CHF (congestive heart failure) (Acute) Cardiomyopathy (Acute) COVID-19 (Acute) Acute respiratory failure (Acute) NSTEMI (non-ST elevated myocardial infarction) (Resolved) #1 acute on chronic hypoxic respiratory failure secondary to COVID-19 pneumonia and underlying acute on chronic systolic congestive heart failure-patient is receiving Decadron at the present time, she finished her remdesivir. #2 acute on chronic systolic congestive heart failure-patient remains on Lasix at this time #3 chronic kidney disease stage III-BMP will be monitored #4 coagulopathy secondary to Coumadin usage-patient's INR today is 3, INR will be rechecked tomorrow #5 atherosclerotic heart disease #6 ischemic cardiomyopathy #7 type 2 diabetes-continue to monitor blood sugars #8 COVID-19 pneumonia Inpatient E&M: 59168 Subs Hosp L2
[2020-05-09] MEDS: amLODIPine 5 MG Tablet PO (23:05)
[2020-05-09] MEDS: Pravastatin 80 MG Tablet PO (23:05)
[2020-05-10] VITALS (15 sets, daily range): BP systolic 117–138; BP diastolic 45–66; PULSE 62–73; RESP 12–25; TEMP 36.3–36.7; O2SAT 81–95
[2020-05-10 06:25] LABS: International Normalized Ratio 1.7; Prothrombin Time (Protime)PT. 19.2 SECONDS (11.7-14.9)
[2020-05-10 07:18] LABS: Anion Gap 11 (5-15); BUN 88 mg/dL (7-18); BUN/Creat Ratio 48.9 RATIO (10-20); Chloride 101 mmol/L (98-107); EST Glomerular Filtration Rate 30 mL/min (>60); Est Glom Filt Rate - Afr Amer 36 mL/min (>60); Estimated Creatinine Clearance 26.84 ml/min; Glucose 274 mg/dL (74-106); Potassium 6.8 mmol/L (3.5-5.1); Sodium Level 133 mmol/L (136-145)
[2020-05-10 08:56] LABS: Anion Gap 7 (5-15); BUN 67 mg/dL (7-18); BUN/Creat Ratio 43.8 RATIO (10-20); Calcium,Total 8.3 mg/dL (8.5-10.1); Chloride 102 mmol/L (98-107); Creatinine, Serum 1.53 mg/dL (0.55-1.02); EST Glomerular Filtration Rate 36 mL/min (>60); Est Glom Filt Rate - Afr Amer 43 mL/min (>60); Estimated Creatinine Clearance 31.57 ml/min; Glucose 268 mg/dL (74-106); Potassium 4.5 mmol/L (3.5-5.1); Sodium Level 134 mmol/L (136-145)
--- NOTE | 2020-05-10 09:18 | PCM.PN.PUL ---
Patient Problems: Active and Suspected Problems (Last Reviewed 05/04/20 @ 14:[address] Daphne Patel, DO) CHF exacerbation (Acute) Non-ST elevation myocardial infarction (NSTEMI) (Acute) Cardiomyopathy (Acute) COVID-19 (Acute) Acute respiratory failure (Acute) Subjective: Patient did okay overnight. Patient continues to be on BiPAP most of the time to maintain saturations. No bleeding has been reported. Patient overall feels subjectively fatigued and tired. Patient does believe that she slept well overnight. - Physical Exam Vitals/I&O's: Vital Signs Temp Pulse Resp BP Pulse Ox 36.7 C 68 20 H 138/66 H 92 05/10/20 04:19 05/10/20 07:49 05/10/20 07:49 05/10/20 04:19 05/10/20 07:49 Oxygen Flow Rate (L/min) 15 Oxygen Delivery Method Bi-pap Weight: 87 kg Body Mass Index (BMI) 30.5 Intake and Output for Last 24 Hours 05/08/20 05/09/20 05/10/20 23:59 23:59 23:59 Intake Total 400 / 400 1100 / 1100 Output Total 1400 / 1400 2000 / 2000 350 / 350 Balance -1000 / -1000 -900 / -900 -350 / -350 General: Alert, Oriented x3, Cooperative, No apparent distress - On BiPAP, - - Obese. HEENT: Atraumatic, PERRLA, EOMI, Normocephalic, - - No scleral icterus or injection noted Oral: No Gingival or Mucosal Lesions/ Ulcerations, Dry Mucosa Neck: Supple, No JVD, No Nodes, Trachea Midline Lungs: No rhonchi, No wheeze, No rales, Diminished, - - Symmetric expansion. Cardiovascular: Regular rate, Regular Rhythm, Normal S1, Normal S2, No murmurs, No rub noted, No Gallop Abdomen: Bowel Sounds Present, Soft, Non Tender, Non-Distended, Obese Extremities: No clubbing, No cyanosis, Edema Skin: - - No change compared to previous Musculoskeletal: No Tenderness to Palpation of Joints or Extremities Lymphatic: No Cervical, Supraclavicular, or Inguinal Adenopathy Neurological: Cranial nerves II-XII grossly intact, Neuro grossly intact, Motor Exam 5/5 strength throughout Psych/Mental Status: Alert and oriented to time, place, person, mood and affect Microbiology Past 72 Hours 05/04/20 13:13 Blood Culture (Wb) #2 - Anticubital Left Blood Culture - Final No growth in 5 days. 05/04/20 12:50 Blood Culture (Wb) - Anticubital Right Blood Culture - Final No growth in 5 days. Laboratory Results 05/10/20 05:48: PT 19.2 H, INR 1.7 05/10/20 05:48: Sodium 133 L, Potassium 6.8 H*, Chloride 101, Carbon Dioxide 21.0, Anion Gap 11, BUN 88 H, Creatinine 1.80 H, Estim Creat Clear Calc 26.84, Est GFR (MDRD) Af Amer 36 L, Est GFR (MDRD) Non-Af 30 L, BUN/Creatinine Ratio 48.9 H, Glucose 274 H, Calcium 8.0 L 05/10/20 08:09: Sodium 134 L, Potassium 4.5, Chloride 102, Carbon Dioxide 25.0, Anion Gap 7, BUN 67 H, Creatinine 1.53 H, Estim Creat Clear Calc 31.57, Est GFR (MDRD) Af Amer 43 L, Est GFR (MDRD) Non-Af 36 L, BUN/Creatinine Ratio 43.8 H, Glucose 268 H, Calcium 8.3 L Current Medications Acetaminophen (Acetaminophen 325 Mg Tablet) 650 mg PO Q6H PRN PRN PRN Reason: Pain Score 1-10/Temp > 100.7 F Last Admin: 05/09/20 00:59 Dose: 650 mg Documented by: Al Hydroxide/Mg Hydroxide (Mag Hydrox/Al Hydrox/Simeth 30 Ml Udc) 30 ml PO Q6H PRN PRN PRN Reason: Gastric Burning Albuterol Sulfate (Albuterol Sulfate 8 Gm Inhaler (60 Puffs)) 1 puff INHALATION Q4H PRN PRN PRN Reason: SOB/Wheezing Last Admin: 05/06/20 05:19 Dose: 1 puff Documented by: Allopurinol (Allopurinol 100 Mg Tablet) 100 mg PO BID [facility] Last Admin: 05/09/20 23:05 Dose: 100 mg Documented by: Amlodipine Besylate (Amlodipine 5 Mg Tablet) 5 mg PO QHS [facility] Last Admin: 05/09/20 23:05 Dose: 5 mg Documented by: Carvedilol (Carvedilol 6.25 Mg Tablet) 6.25 mg PO BID [facility] Last Admin: 05/09/20 23:05 Dose: 6.25 mg Documented by: Clopidogrel Bisulfate (Clopidogrel Bisulfate 75 Mg Tablet) 75 mg PO DAILY [facility] Last Admin: 05/09/20 09:02 Dose: 75 mg Documented by: Dexamethasone (Dexamethasone 4 Mg Tablet) 6 mg PO DAILY [facility] Stop: 05/13/20 10:01 Last Admin: 05/09/20 09:02 Dose: 6 mg Documented by: Docusate Sodium (Docusate Sodium 100 Mg Capsule) 100 mg PO BID PRN PRN PRN Reason: Constipation Last Admin: 05/09/20 00:59 Dose: 100 mg Documented by: Furosemide (Furosemide 40 Mg/4 Ml Vial) 40 mg IV DAILY [facility] Last Admin: 05/09/20 09:03 Dose: 40 mg Documented by: Gabapentin (Gabapentin 300 Mg Capsule) 300 mg PO BID [facility] Last Admin: 05/09/20 23:05 Dose: 300 mg Documented by: Guaifenesin (Guaifenesin 10 Ml Udc (200mg/10ml)) 10 ml PO Q4H PRN PRN PRN Reason: COUGH Sodium Chloride () 250 mls @ 15 mls/hr IV .[id number] PRN PRN Reason: Saline Flush Last Infusion: 05/06/20 06:05 Dose: 0 mls/hr Documented by: Sodium Chloride () 250 mls @ 15 mls/hr IV .[id number] PRN PRN Reason: Additional IVPB Infusion Melatonin (Melatonin 3 Mg Tablet) 3 mg PO QHS PRN PRN PRN Reason: INSOMNIA Last Admin: 05/07/20 20:16 Dose: 3 mg Documented by: Miscellaneous Information (Inhaler, Assist Devices 1 Each Spacer) 1 each INHALATION Q4HWA PRN PRN Reason: INHALER USE Morphine Sulfate (Morphine 2 Mg/Ml Syringe) 2 mg IV Q3H PRN PRN PRN Reason: Pain Score 6-10 Nystatin (Nystatin Powder 15gm Bottle) 1 applic TOPICAL BID [facility]; Protocol Last Admin: 05/09/20 23:05 Dose: 1 applicatio Documented by: Ondansetron HCl (Ondansetron 4 Mg/2 Ml Vial) 4 mg IV Q8H PRN PRN PRN Reason: NAUSEA/VOMITING Last Admin: 05/09/20 12:41 Dose: 4 mg Documented by: Pantoprazole Sodium (Pantoprazole Sodium 40 Mg Tablet) 40 mg PO DAILY [facility] Last Admin: 05/09/20 09:03 Dose: 40 mg Documented by: Pravastatin Sodium (Pravastatin 80 Mg Tablet) 80 mg PO QHS [facility] Last Admin: 05/09/20 23:05 Dose: 80 mg Documented by: Sertraline HCl (Sertraline 100 Mg Tablet) 100 mg PO DAILY [facility] Last Admin: 05/09/20 09:02 Dose: 100 mg Documented by: Sodium Chloride (0.9% Saline Lock 10 Ml Syringe) 10 - 40 ml IV UD PRN PRN Reason: SALINE FLUSH Last Admin: 05/09/20 12:41 Dose: 10 ml Documented by: Medical Necessity - Tobacco Use Smoking Status: Former smoker Tobacco Use: Cigarettes Assessment/Plan All Active Problems (Last Reviewed 05/04/20 @ 14:[address] Daphne Patel, DO) CHF exacerbation (Acute) Non-ST elevation myocardial infarction (NSTEMI) (Acute) CHF (congestive heart failure) (Acute) Cardiomyopathy (Acute) COVID-19 (Acute) Acute respiratory failure (Acute) NSTEMI (non-ST elevated myocardial infarction) (Resolved) RECOMMENDATIONS: 1. Continue BiPAP therapy and wean FiO2 to maintain oxygen saturations at or above 90%. BiPAP breaks as tolerated while not sleeping 2. Attempt diuresis as tolerated by hemodynamics and renal function. Give additional dose of Lasix this evening 3. Continue Decadron. Completed remdesivir. 4. Continue to hold Coumadin given supratherapeutic INR. 5. Increase activity as tolerated 6. Consider LTAC evaluation for disposition IMPRESSIONS: 1. Acute on chronic hypoxemic respiratory failure secondary to combined decompensated heart failure and COVID-19 pneumonia The patient will be continued on BiPAP therapy as tolerated with goals to wean her FiO2 to maintain oxygen saturations at or above 90%. Resume Lasix as tolerated by hemodynamics and renal function. The patient will be continued on Decadron. Remdesivir has been completed. Liver function appears to be appropriate. Likely not necessary to monitor liver function from my perspective. 2. Acute on chronic kidney disease Continue attempts at gentle diuresis as tolerated by renal function. Lasix scheduled daily appears to be tolerating. Patient is achieving a negative fluid balance on a daily basis with current regimen. Initial hyperkalemia appears to be secondary to lab error. Repeat was within normal limits and requires no intervention. 3. Coagulopathy The patient presented to the hospital with a supratherapeutic INR. Okay to reinitiate Coumadin therapy from my perspective. No bleeding complications have been noted despite elevated INR on presentation. 4. History of ischemic cardiomyopathy/hypertension/hyperlipidemia/peripheral vascular disease/diabetes mellitus/questionable COPD/obesity Complicates care, management, recovery and prognosis. Continue home medications as tolerated. Inpatient E&M: 55673 Subs Hosp L3
[2020-05-10] MEDS: Allopurinol 100 MG Tablet PO ×2 (09:29→19:35)
[2020-05-10] MEDS: Sertraline 100 MG Tablet PO (09:29)
[2020-05-10] MEDS: Carvedilol 6.25 MG Tablet PO ×2 (09:29→19:35)
[2020-05-10] MEDS: Nystatin Powder 15gm Bottle 1 APPLIC TOPICAL ×2 (09:30→19:35)
[2020-05-10] MEDS: Gabapentin 300 MG Capsule PO ×2 (09:30→19:35)
[2020-05-10] MEDS: Clopidogrel Bisulfate 75 MG Tablet PO (09:30)
[2020-05-10] MEDS: Pantoprazole Sodium 40 MG Tablet PO (09:30)
[2020-05-10] MEDS: Furosemide 40 MG/4 ML Vial IV ×2 (09:30→17:00)
[2020-05-10] MEDS: dexAMETHasone 4 MG Tablet 6 MG PO (09:30)
[2020-05-10] MEDS: 0.9% Saline Lock 10 ML Syringe IV ×2 (09:33→16:57)
--- NOTE | 2020-05-10 18:36 | PN_ITS ---
Patient Problems: Active and Suspected Problems (Last Reviewed 05/04/20 @ 14:[address] Daphne Patel, DO) CHF exacerbation (Acute) Non-ST elevation myocardial infarction (NSTEMI) (Acute) Cardiomyopathy (Acute) COVID-19 (Acute) Acute respiratory failure (Acute) Subjective: Patient was seen and examined today, I discussed her care with pulmonary medicine today, there is been no significant change in her oxygen requirement at this time. Patient denies any fevers or chills, when I saw the patient this morning she was on BiPAP. Objective: General: Alert, Oriented x3, Cooperative, No apparent distress, Well developed, Well nourished HEENT: Atraumatic, PERRLA, EOMI, Normocephalic Oral: Moist Mucosa Neck: Supple, No JVD, Trachea Midline, Thyroid Normal Size and Texture Lungs: Clear to auscultation, Normal air movement, No rhonchi, No wheeze, No rales Cardiovascular: Regular rate, Regular Rhythm, Normal S1, Normal S2, No murmurs, PMI Normal, No rub noted, No Gallop Abdomen: Bowel Sounds Present, Soft, Non Tender, Non-Distended Extremities: No clubbing, No cyanosis, No edema, Capillary Refill Less than 3 Seconds Skin: No rashes, No breakdown Musculoskeletal: No Tenderness to Palpation of Joints or Extremities Neurological: Cranial nerves II-XII grossly intact, Neuro grossly intact, Sensory exam intact to light touch and pain Psych/Mental Status: Normal Affect, Appropriate, Alert and oriented to time, place, person, mood and affect - Physical Exam Vitals/I&O's: Vital Signs Temp Pulse Resp BP Pulse Ox 97.7 F L 66 20 H 130/45 H 93 05/10/20 15:02 05/10/20 15:02 05/10/20 15:02 05/10/20 15:02 05/10/20 15:02 Oxygen Flow Rate (L/min) 15 Oxygen Delivery Method Bi-pap Weight: 87 kg Body Mass Index (BMI) 30.5 Intake and Output for Last 24 Hours 05/08/20 05/09/20 05/10/20 23:59 23:59 23:59 Intake Total 400 / 400 1100 / 1100 Output Total 1400 / 1400 2000 / 1999 1150 / 1150 Balance -1000 / -1000 -900 / -900 -1150 / -1150 Microbiology Past 72 Hours 05/04/20 13:13 Blood Culture (Wb) #2 - Anticubital Left Blood Culture - Final No growth in 5 days. 05/04/20 12:50 Blood Culture (Wb) - Anticubital Right Blood Culture - Final No growth in 5 days. Laboratory Results 05/10/20 05:48: PT 19.2 H, INR 1.7 05/10/20 05:48: Sodium 133 L, Potassium 6.8 H*, Chloride 101, Carbon Dioxide 21.0, Anion Gap 11, BUN 88 H, Creatinine 1.80 H, Estim Creat Clear Calc 26.84, Est GFR (MDRD) Af Amer 36 L, Est GFR (MDRD) Non-Af 30 L, BUN/Creatinine Ratio 48.9 H, Glucose 274 H, Calcium 8.0 L 05/10/20 08:09: Sodium 134 L, Potassium 4.5, Chloride 102, Carbon Dioxide 25.0, Anion Gap 7, BUN 67 H, Creatinine 1.53 H, Estim Creat Clear Calc 31.57, Est GFR (MDRD) Af Amer 43 L, Est GFR (MDRD) Non-Af 36 L, BUN/Creatinine Ratio 43.8 H, Glucose 268 H, Calcium 8.3 L Current Medications Acetaminophen (Acetaminophen 325 Mg Tablet) 650 mg PO Q6H PRN PRN PRN Reason: Pain Score 1-10/Temp > 100.7 F Last Admin: 05/09/20 00:59 Dose: 650 mg Documented by: Al Hydroxide/Mg Hydroxide (Mag Hydrox/Al Hydrox/Simeth 30 Ml Udc) 30 ml PO Q6H PRN PRN PRN Reason: Gastric Burning Albuterol Sulfate (Albuterol Sulfate 8 Gm Inhaler (60 Puffs)) 1 puff INHALATION Q4H PRN PRN PRN Reason: SOB/Wheezing Last Admin: 05/06/20 05:19 Dose: 1 puff Documented by: Allopurinol (Allopurinol 100 Mg Tablet) 100 mg PO BID [facility] Last Admin: 05/10/20 09:29 Dose: 100 mg Documented by: Amlodipine Besylate (Amlodipine 5 Mg Tablet) 5 mg PO QHS [facility] Last Admin: 05/09/20 23:05 Dose: 5 mg Documented by: Carvedilol (Carvedilol 6.25 Mg Tablet) 6.25 mg PO BID [facility] Last Admin: 05/10/20 09:29 Dose: 6.25 mg Documented by: Clopidogrel Bisulfate (Clopidogrel Bisulfate 75 Mg Tablet) 75 mg PO DAILY [facility] Last Admin: 05/10/20 09:30 Dose: 75 mg Documented by: Dexamethasone (Dexamethasone 4 Mg Tablet) 6 mg PO DAILY [facility] Stop: 05/13/20 10:01 Last Admin: 05/10/20 09:30 Dose: 6 mg Documented by: Docusate Sodium (Docusate Sodium 100 Mg Capsule) 100 mg PO BID PRN PRN PRN Reason: Constipation Last Admin: 05/09/20 00:59 Dose: 100 mg Documented by: Furosemide (Furosemide 40 Mg/4 Ml Vial) 40 mg IV DAILY [facility] Last Admin: 05/10/20 09:30 Dose: 40 mg Documented by: Gabapentin (Gabapentin 300 Mg Capsule) 300 mg PO BID [facility] Last Admin: 05/10/20 09:30 Dose: 300 mg Documented by: Guaifenesin (Guaifenesin 10 Ml Udc (200mg/10ml)) 10 ml PO Q4H PRN PRN PRN Reason: COUGH Sodium Chloride () 250 mls @ 15 mls/hr IV .[id number] PRN PRN Reason: Saline Flush Last Infusion: 05/06/20 06:05 Dose: 0 mls/hr Documented by: Sodium Chloride () 250 mls @ 15 mls/hr IV .[id number] PRN PRN Reason: Additional IVPB Infusion Melatonin (Melatonin 3 Mg Tablet) 3 mg PO QHS PRN PRN PRN Reason: INSOMNIA Last Admin: 05/07/20 20:16 Dose: 3 mg Documented by: Miscellaneous Information (Inhaler, Assist Devices 1 Each Spacer) 1 each INHALATION Q4HWA PRN PRN Reason: INHALER USE Morphine Sulfate (Morphine 2 Mg/Ml Syringe) 2 mg IV Q3H PRN PRN PRN Reason: Pain Score 6-10 Nystatin (Nystatin Powder 15gm Bottle) 1 applic TOPICAL BID [facility]; Protocol Last Admin: 05/10/20 09:30 Dose: 1 applicatio Documented by: Ondansetron HCl (Ondansetron 4 Mg/2 Ml Vial) 4 mg IV Q8H PRN PRN PRN Reason: NAUSEA/VOMITING Last Admin: 05/09/20 12:41 Dose: 4 mg Documented by: Pantoprazole Sodium (Pantoprazole Sodium 40 Mg Tablet) 40 mg PO DAILY [facility] Last Admin: 05/10/20 09:30 Dose: 40 mg Documented by: Pravastatin Sodium (Pravastatin 80 Mg Tablet) 80 mg PO QHS [facility] Last Admin: 05/09/20 23:05 Dose: 80 mg Documented by: Sertraline HCl (Sertraline 100 Mg Tablet) 100 mg PO DAILY [facility] Last Admin: 05/10/20 09:29 Dose: 100 mg Documented by: Sodium Chloride (0.9% Saline Lock 10 Ml Syringe) 10 - 40 ml IV UD PRN PRN Reason: SALINE FLUSH Last Admin: 05/10/20 16:57 Dose: 10 ml Documented by: Medical Necessity - Tobacco Use Smoking Status: Former smoker Tobacco Use: Cigarettes Assessment/Plan All Active Problems (Last Reviewed 05/04/20 @ 14:[address] Daphne Patel, DO) CHF exacerbation (Acute) Non-ST elevation myocardial infarction (NSTEMI) (Acute) CHF (congestive heart failure) (Acute) Cardiomyopathy (Acute) COVID-19 (Acute) Acute respiratory failure (Acute) NSTEMI (non-ST elevated myocardial infarction) (Resolved) #1 acute on chronic hypoxic respiratory failure secondary to COVID-19 pneumonia and underlying acute on chronic systolic congestive heart failure-patient is receiving Decadron at the present time, she finished her remdesivir. Pulmonary medicine is participating in her care, she may ultimately need to go to an LTAC if she does not improve. #2 acute on chronic systolic congestive heart failure-patient remains on Lasix at this time #3 chronic kidney disease stage III-BMP will be monitored #4 coagulopathy secondary to Coumadin usage-patient's INR today is 1.7, I will restart the patient's warfarin, repeat INR tomorrow #5 atherosclerotic heart disease #6 ischemic cardiomyopathy #7 type 2 diabetes-continue to monitor blood sugars #8 COVID-19 pneumonia Inpatient E&M: [id number] Subs Hosp L2
[2020-05-10] MEDS: Enoxaparin 30 MG/0.3 ML Syringe SC (19:34)
[2020-05-10] MEDS: Pravastatin 80 MG Tablet PO (19:35)
[2020-05-11] VITALS (18 sets, daily range): BP systolic 119–134; BP diastolic 54–72; PULSE 54–73; RESP 12–26; TEMP 36.1–36.7; O2SAT 88–94
[2020-05-11] MEDS: Sodium Chloride 0.65% 1 SPRAY SPRAY.BTL NASAL ×2 (00:02→21:46)
[2020-05-11 07:31] LABS: International Normalized Ratio 2.4; Prothrombin Time (Protime)PT. 25.6 SECONDS (11.7-14.9)
[2020-05-11 07:47] LABS: Anion Gap 11 (5-15); BUN 77 mg/dL (7-18); Calcium,Total 8.2 mg/dL (8.5-10.1); Chloride 95 mmol/L (98-107); Creatinine, Serum 1.57 mg/dL (0.55-1.02); EST Glomerular Filtration Rate 35 mL/min (>60); Est Glom Filt Rate - Afr Amer 42 mL/min (>60); Estimated Creatinine Clearance 30.77 ml/min; Glucose 314 mg/dL (74-106); Potassium 4.6 mmol/L (3.5-5.1); Sodium Level 129 mmol/L (136-145)
[2020-05-11] MEDS: Pantoprazole Sodium 40 MG Tablet PO (08:08)
[2020-05-11] MEDS: Gabapentin 300 MG Capsule PO ×2 (08:08→21:46)
[2020-05-11] MEDS: Allopurinol 100 MG Tablet PO ×2 (08:08→21:46)
[2020-05-11] MEDS: Sertraline 100 MG Tablet PO (08:08)
[2020-05-11] MEDS: Furosemide 40 MG/4 ML Vial IV ×2 (08:09→17:49)
[2020-05-11] MEDS: dexAMETHasone 4 MG Tablet 6 MG PO (08:09)
[2020-05-11] MEDS: Clopidogrel Bisulfate 75 MG Tablet PO (08:09)
[2020-05-11] MEDS: Nystatin Powder 15gm Bottle 1 APPLIC TOPICAL ×2 (08:10→21:47)
--- NOTE | 2020-05-11 15:55 | PN_ITS ---
Patient Problems: Active and Suspected Problems (Last Reviewed 05/04/20 @ 14:[address] Daphne Patel, DO) CHF exacerbation (Acute) Non-ST elevation myocardial infarction (NSTEMI) (Acute) Cardiomyopathy (Acute) COVID-19 (Acute) Acute respiratory failure (Acute) Subjective: Patient did okay overnight. Patient is tolerating very little time off of BiPAP therapy at this time. Patient reports that she had better energy today compared to yesterday. Patient is not reporting any significant cough. No fever was reported overnight. - Physical Exam Vitals/I&O's: Vital Signs Temp Pulse Resp BP Pulse Ox 36.1 C L 68 25 H 132/54 H 92 05/11/20 15:00 05/11/20 15:00 05/11/20 15:00 05/11/20 15:00 05/11/20 15:00 Oxygen Flow Rate (L/min) 15 Oxygen Delivery Method Bi-pap Weight: 87 kg Body Mass Index (BMI) 30.5 Intake and Output for Last 24 Hours 05/09/20 05/10/20 05/11/20 23:59 23:59 23:59 Intake Total 1100 / 1100 120 / 120 Output Total 1999 / 1999 2150 / 2150 1000 / 1000 Balance -900 / -900 -2150 / -2150 -880 / -880 General: Alert, Cooperative, No apparent distress, - - Good BiPAP synchrony. HEENT: Atraumatic, PERRLA, EOMI, Normocephalic, - - No scleral icterus or injection noted Oral: Moist Mucosa, No Gingival or Mucosal Lesions/ Ulcerations Neck: Supple, No Nodes, Trachea Midline, JVD, Right Lungs: No rhonchi, No wheeze, No rales, Diminished Cardiovascular: Normal S1, Normal S2, No murmurs, No rub noted, No Gallop Abdomen: Bowel Sounds Present, Soft, Non Tender, Non-Distended Extremities: No clubbing, No cyanosis, No edema Skin: - - No change from previous Musculoskeletal: No Tenderness to Palpation of Joints or Extremities Lymphatic: No Cervical, Supraclavicular, or Inguinal Adenopathy Neurological: Cranial nerves II-XII grossly intact, Neuro grossly intact, Motor Exam 5/5 strength throughout Psych/Mental Status: Alert and oriented to time, place, person, mood and affect Microbiology Past 72 Hours 05/04/20 13:13 Blood Culture (Wb) #2 - Anticubital Left Blood Culture - Final No growth in 5 days. 05/04/20 12:50 Blood Culture (Wb) - Anticubital Right Blood Culture - Final No growth in 5 days. Laboratory Results 05/11/20 06:55: PT 25.6 H, INR 2.4 05/11/20 06:55: Sodium 129 L, Potassium 4.6, Chloride 95 L, Carbon Dioxide 23.0, Anion Gap 11, BUN 77 H, Creatinine 1.57 H, Estim Creat Clear Calc 30.77, Est GFR (MDRD) Af Amer 42 L, Est GFR (MDRD) Non-Af 35 L, BUN/Creatinine Ratio 49.0 H, Glucose 314 H, Calcium 8.2 L Current Medications Acetaminophen (Acetaminophen 325 Mg Tablet) 650 mg PO Q6H PRN PRN PRN Reason: Pain Score 1-10/Temp > 100.7 F Last Admin: 05/09/20 00:59 Dose: 650 mg Documented by: Al Hydroxide/Mg Hydroxide (Mag Hydrox/Al Hydrox/Simeth 30 Ml Udc) 30 ml PO Q6H PRN PRN PRN Reason: Gastric Burning Albuterol Sulfate (Albuterol Sulfate 8 Gm Inhaler (60 Puffs)) 1 puff INHALATION Q4H PRN PRN PRN Reason: SOB/Wheezing Last Admin: 05/06/20 05:19 Dose: 1 puff Documented by: Allopurinol (Allopurinol 100 Mg Tablet) 100 mg PO BID [facility] Last Admin: 05/11/20 08:08 Dose: 100 mg Documented by: Amlodipine Besylate (Amlodipine 5 Mg Tablet) 5 mg PO QHS [facility] Last Admin: 05/10/20 19:36 Dose: Not Given Documented by: Carvedilol (Carvedilol 6.25 Mg Tablet) 6.25 mg PO BID [facility] Last Admin: 05/11/20 08:09 Dose: Not Given Documented by: Clopidogrel Bisulfate (Clopidogrel Bisulfate 75 Mg Tablet) 75 mg PO DAILY [facility] Last Admin: 05/11/20 08:09 Dose: 75 mg Documented by: Dexamethasone (Dexamethasone 4 Mg Tablet) 6 mg PO DAILY [facility] Stop: 05/13/20 10:01 Last Admin: 05/11/20 08:09 Dose: 6 mg Documented by: Docusate Sodium (Docusate Sodium 100 Mg Capsule) 100 mg PO BID PRN PRN PRN Reason: Constipation Last Admin: 05/09/20 00:59 Dose: 100 mg Documented by: Furosemide (Furosemide 40 Mg/4 Ml Vial) 40 mg IV DAILY [facility] Last Admin: 05/11/20 08:09 Dose: 40 mg Documented by: Gabapentin (Gabapentin 300 Mg Capsule) 300 mg PO BID [facility] Last Admin: 05/11/20 08:08 Dose: 300 mg Documented by: Guaifenesin (Guaifenesin 10 Ml Udc (200mg/10ml)) 10 ml PO Q4H PRN PRN PRN Reason: COUGH Sodium Chloride () 250 mls @ 15 mls/hr IV .[id number] PRN PRN Reason: Saline Flush Last Infusion: 05/06/20 06:05 Dose: 0 mls/hr Documented by: Sodium Chloride () 250 mls @ 15 mls/hr IV .[id number] PRN PRN Reason: Additional IVPB Infusion Insulin Human Lispro (Insulin Lispro 100 Unit/Ml Insuln.Pen) 0 unit SC ACHS [facility]; Protocol Melatonin (Melatonin 3 Mg Tablet) 3 mg PO QHS PRN PRN PRN Reason: INSOMNIA Last Admin: 05/07/20 20:16 Dose: 3 mg Documented by: Miscellaneous Information (Inhaler, Assist Devices 1 Each Spacer) 1 each INHALATION Q4HWA PRN PRN Reason: INHALER USE Morphine Sulfate (Morphine 2 Mg/Ml Syringe) 2 mg IV Q3H PRN PRN PRN Reason: Pain Score 6-10 Nystatin (Nystatin Powder 15gm Bottle) 1 applic TOPICAL BID [facility]; Protocol Last Admin: 05/11/20 08:10 Dose: 1 applicatio Documented by: Ondansetron HCl (Ondansetron 4 Mg/2 Ml Vial) 4 mg IV Q8H PRN PRN PRN Reason: NAUSEA/VOMITING Last Admin: 05/09/20 12:41 Dose: 4 mg Documented by: Pantoprazole Sodium (Pantoprazole Sodium 40 Mg Tablet) 40 mg PO DAILY [facility] Last Admin: 05/11/20 08:08 Dose: 40 mg Documented by: Pravastatin Sodium (Pravastatin 80 Mg Tablet) 80 mg PO QHS [facility] Last Admin: 05/10/20 19:35 Dose: 80 mg Documented by: Sertraline HCl (Sertraline 100 Mg Tablet) 100 mg PO DAILY [facility] Last Admin: 05/11/20 08:08 Dose: 100 mg Documented by: Sodium Chloride (0.9% Saline Lock 10 Ml Syringe) 10 - 40 ml IV UD PRN PRN Reason: SALINE FLUSH Last Admin: 05/10/20 16:57 Dose: 10 ml Documented by: Sodium Chloride (Sodium Chloride 0.65% 1 [place].Btl) 1 spray NASAL TID PRN PRN PRN Reason: NASAL DRYNESS Last Admin: 05/11/20 00:02 Dose: 1 spray Documented by: Warfarin Sodium (Jantoven 2 Mg Tablet) 2 mg PO DAILY@1700 [facility] Medical Necessity - Tobacco Use Smoking Status: Former smoker Tobacco Use: Cigarettes Assessment/Plan All Active Problems (Last Reviewed 05/04/20 @ 14:[address] Daphne Patel, DO) CHF exacerbation (Acute) Non-ST elevation myocardial infarction (NSTEMI) (Acute) CHF (congestive heart failure) (Acute) Cardiomyopathy (Acute) COVID-19 (Acute) Acute respiratory failure (Acute) NSTEMI (non-ST elevated myocardial infarction) (Resolved) RECOMMENDATIONS: 1. Continue BiPAP therapy and wean FiO2 to maintain oxygen saturations at or above 90%. BiPAP breaks as tolerated while not sleeping 2. Attempt diuresis as tolerated by hemodynamics and renal function. Give additional dose of Lasix this evening 3. Continue Decadron. Completed remdesivir. 4. Okay to continue with Coumadin 5. Increase activity as tolerated 6. Consider LTAC evaluation for disposition IMPRESSIONS: 1. Acute on chronic hypoxemic respiratory failure secondary to combined decompensated heart failure and COVID-19 pneumonia The patient will be continued on BiPAP therapy as tolerated with goals to wean her FiO2 to maintain oxygen saturations at or above 90%. Resume Lasix as tolerated by hemodynamics and renal function. The patient will be continued on Decadron. Remdesivir has been completed. Liver function appears to be appropriate. Likely not necessary to monitor liver function from my perspective. 2. Acute on chronic kidney disease Continue attempts at gentle diuresis as tolerated by renal function. Lasix scheduled daily appears to be tolerating. Patient is achieving a negative fluid balance on a daily basis with current regimen. Patient tolerated the additional dose of Lasix yesterday. Will readminister today to see if oxygenation will improve. 3. Coagulopathy The patient presented to the hospital with a supratherapeutic INR. Okay to reinitiate Coumadin therapy from my perspective. No bleeding complications have been noted despite elevated INR on presentation. 4. History of ischemic cardiomyopathy/hypertension/hyperlipidemia/peripheral vascular disease/diabetes mellitus/questionable COPD/obesity Complicates care, management, recovery and prognosis. Continue home medications as tolerated. Inpatient E&M: [id number] [facility] L3
[2020-05-11] MEDS: Jantoven 2 MG Tablet PO (17:49)
--- NOTE | 2020-05-11 18:29 | PCM.PROGNOTE ---
Patient Problems: Active and Suspected Problems (Last Reviewed 05/04/20 @ 14:[address] Daphne Patel, DO) CHF exacerbation (Acute) Non-ST elevation myocardial infarction (NSTEMI) (Acute) Cardiomyopathy (Acute) COVID-19 (Acute) Acute respiratory failure (Acute) Subjective: Patient was seen and examined today, she is currently on high flow nasal cannula oxygen, she has been on BiPAP on and off throughout the day. Patient has no complaints of any chest discomfort, fever, or chills. Objective: General: Alert, Oriented x3, Cooperative, No apparent distress, Well developed, Well nourished HEENT: Atraumatic, PERRLA, EOMI, Normocephalic Oral: Moist Mucosa Neck: Supple, No JVD, Trachea Midline, Thyroid Normal Size and Texture Lungs: Clear to auscultation, Normal air movement, No rhonchi, No wheeze, No rales Cardiovascular: Regular rate, Regular Rhythm, Normal S1, Normal S2, No murmurs, PMI Normal, No rub noted, No Gallop Abdomen: Bowel Sounds Present, Soft, Non Tender, Non-Distended Extremities: No clubbing, No cyanosis, No edema, Capillary Refill Less than 3 Seconds Skin: No rashes, No breakdown Musculoskeletal: No Tenderness to Palpation of Joints or Extremities Neurological: Cranial nerves II-XII grossly intact, Neuro grossly intact, Sensory exam intact to light touch and pain Psych/Mental Status: Normal Affect, Appropriate, Alert and oriented to time, place, person, mood and affect - Physical Exam Vitals/I&O's: Vital Signs Temp Pulse Resp BP Pulse Ox 96.9 F L 69 25 H 132/54 H 89 05/11/20 15:00 05/11/20 16:00 05/11/20 15:00 05/11/20 15:00 05/11/20 17:15 Oxygen Flow Rate (L/min) 15 Oxygen Delivery Method Nasal Cannula Weight: 87 kg Body Mass Index (BMI) 30.5 Intake and Output for Last 24 Hours 05/09/20 05/10/20 05/11/20 23:59 23:59 23:59 Intake Total 1100 / 1100 360 / 360 Output Total 1999 / 1999 2150 / 2150 1300 / 1300 Balance -900 / -900 -2150 / -2150 -940 / -940 Microbiology Past 72 Hours 05/04/20 13:13 Blood Culture (Wb) #2 - Anticubital Left Blood Culture - Final No growth in 5 days. 05/04/20 12:50 Blood Culture (Wb) - Anticubital Right Blood Culture - Final No growth in 5 days. Laboratory Results 05/11/20 06:55: PT 25.6 H, INR 2.4 05/11/20 06:55: Sodium 129 L, Potassium 4.6, Chloride 95 L, Carbon Dioxide 23.0, Anion Gap 11, BUN 77 H, Creatinine 1.57 H, Estim Creat Clear Calc 30.77, Est GFR (MDRD) Af Amer 42 L, Est GFR (MDRD) Non-Af 35 L, BUN/Creatinine Ratio 49.0 H, Glucose 314 H, Calcium 8.2 L Current Medications Acetaminophen (Acetaminophen 325 Mg Tablet) 650 mg PO Q6H PRN PRN PRN Reason: Pain Score 1-10/Temp > 100.7 F Last Admin: 05/09/20 00:59 Dose: 650 mg Documented by: Al Hydroxide/Mg Hydroxide (Mag Hydrox/Al Hydrox/Simeth 30 Ml Udc) 30 ml PO Q6H PRN PRN PRN Reason: Gastric Burning Albuterol Sulfate (Albuterol Sulfate 8 Gm Inhaler (60 Puffs)) 1 puff INHALATION Q4H PRN PRN PRN Reason: SOB/Wheezing Last Admin: 05/06/20 05:19 Dose: 1 puff Documented by: Allopurinol (Allopurinol 100 Mg Tablet) 100 mg PO BID [facility] Last Admin: 05/11/20 08:08 Dose: 100 mg Documented by: Amlodipine Besylate (Amlodipine 5 Mg Tablet) 5 mg PO QHS [facility] Last Admin: 05/10/20 19:36 Dose: Not Given Documented by: Carvedilol (Carvedilol 6.25 Mg Tablet) 6.25 mg PO BID [facility] Last Admin: 05/11/20 08:09 Dose: Not Given Documented by: Clopidogrel Bisulfate (Clopidogrel Bisulfate 75 Mg Tablet) 75 mg PO DAILY [facility] Last Admin: 05/11/20 08:09 Dose: 75 mg Documented by: Dexamethasone (Dexamethasone 4 Mg Tablet) 6 mg PO DAILY [facility] Stop: 05/13/20 10:01 Last Admin: 05/11/20 08:09 Dose: 6 mg Documented by: Docusate Sodium (Docusate Sodium 100 Mg Capsule) 100 mg PO BID PRN PRN PRN Reason: Constipation Last Admin: 05/09/20 00:59 Dose: 100 mg Documented by: Furosemide (Furosemide 40 Mg/4 Ml Vial) 40 mg IV DAILY [facility] Last Admin: 05/11/20 08:09 Dose: 40 mg Documented by: Gabapentin (Gabapentin 300 Mg Capsule) 300 mg PO BID [facility] Last Admin: 05/11/20 08:08 Dose: 300 mg Documented by: Guaifenesin (Guaifenesin 10 Ml Udc (200mg/10ml)) 10 ml PO Q4H PRN PRN PRN Reason: COUGH Sodium Chloride () 250 mls @ 15 mls/hr IV .[id number] PRN PRN Reason: Saline Flush Last Infusion: 05/06/20 06:05 Dose: 0 mls/hr Documented by: Sodium Chloride () 250 mls @ 15 mls/hr IV .[id number] PRN PRN Reason: Additional IVPB Infusion Insulin Human Lispro (Insulin Lispro 100 Unit/Ml Insuln.Pen) 0 unit SC ACHS [facility]; Protocol Last Admin: 05/11/20 17:51 Dose: Not Given Documented by: Melatonin (Melatonin 3 Mg Tablet) 3 mg PO QHS PRN PRN PRN Reason: INSOMNIA Last Admin: 05/07/20 20:16 Dose: 3 mg Documented by: Miscellaneous Information (Inhaler, Assist Devices 1 Each Spacer) 1 each INHALATION Q4HWA PRN PRN Reason: INHALER USE Morphine Sulfate (Morphine 2 Mg/Ml Syringe) 2 mg IV Q3H PRN PRN PRN Reason: Pain Score 6-10 Nystatin (Nystatin Powder 15gm Bottle) 1 applic TOPICAL BID [facility]; Protocol Last Admin: 05/11/20 08:10 Dose: 1 applicatio Documented by: Ondansetron HCl (Ondansetron 4 Mg/2 Ml Vial) 4 mg IV Q8H PRN PRN PRN Reason: NAUSEA/VOMITING Last Admin: 05/09/20 12:41 Dose: 4 mg Documented by: Pantoprazole Sodium (Pantoprazole Sodium 40 Mg Tablet) 40 mg PO DAILY [facility] Last Admin: 05/11/20 08:08 Dose: 40 mg Documented by: Pravastatin Sodium (Pravastatin 80 Mg Tablet) 80 mg PO QHS [facility] Last Admin: 05/10/20 19:35 Dose: 80 mg Documented by: Sertraline HCl (Sertraline 100 Mg Tablet) 100 mg PO DAILY [facility] Last Admin: 05/11/20 08:08 Dose: 100 mg Documented by: Sodium Chloride (0.9% Saline Lock 10 Ml Syringe) 10 - 40 ml IV UD PRN PRN Reason: SALINE FLUSH Last Admin: 05/10/20 16:57 Dose: 10 ml Documented by: Sodium Chloride (Sodium Chloride 0.65% 1 [place].Btl) 1 spray NASAL TID PRN PRN PRN Reason: NASAL DRYNESS Last Admin: 05/11/20 00:02 Dose: 1 spray Documented by: Warfarin Sodium (Jantoven 2 Mg Tablet) 2 mg PO DAILY@1700 [facility] Last Admin: 05/11/20 17:49 Dose: 2 mg Documented by: Medical Necessity - Tobacco Use Smoking Status: Former smoker Tobacco Use: Cigarettes Assessment/Plan All Active Problems (Last Reviewed 05/04/20 @ 14:[address] Daphne Patel, DO) CHF exacerbation (Acute) Non-ST elevation myocardial infarction (NSTEMI) (Acute) CHF (congestive heart failure) (Acute) Cardiomyopathy (Acute) COVID-19 (Acute) Acute respiratory failure (Acute) NSTEMI (non-ST elevated myocardial infarction) (Resolved) #1 acute on chronic hypoxic respiratory failure secondary to COVID-19 pneumonia and underlying acute on chronic systolic congestive heart failure-patient is receiving Decadron at the present time, she finished her remdesivir. Pulmonary medicine is participating in her care, she may ultimately need to go to an LTAC if she does not improve. Patient is still intermittently on BiPAP #2 acute on chronic systolic congestive heart failure-patient remains on Lasix at this time #3 chronic kidney disease stage III-BMP will be monitored #4 coagulopathy secondary to Coumadin usage-patient's INR today is 2.4 #5 atherosclerotic heart disease #6 ischemic cardiomyopathy #7 type 2 diabetes-continue to monitor blood sugars #8 COVID-19 pneumonia #9 hyponatremia-I will recheck patient's BMP Inpatient E&M: [id number] [facility] H[facility] L2
[2020-05-11 21:45] LABS: Bedside Glucose > 500 mg/dL (70-110)
[2020-05-11] MEDS: MELATONIN 3 MG TABLET PO (21:46)
[2020-05-11] MEDS: Carvedilol 6.25 MG Tablet PO (21:46)
[2020-05-11] MEDS: Pravastatin 80 MG Tablet PO (21:46)
[2020-05-11 22:45] LABS: Bedside Glucose > 500 mg/dL (70-110)
[2020-05-11] MEDS: Insulin Lispro 100 UNIT/ML INSULN.PEN SC (23:16)
[2020-05-11] MEDS: Insulin Lispro 100 UNIT/ML INSULN.PEN 10 UNIT SC (23:16)
[2020-05-12] VITALS (13 sets, daily range): BP systolic 105–129; BP diastolic 44–55; PULSE 59–69; RESP 12–20; TEMP 35.6–36.7; O2SAT 91–95
[2020-05-12 05:42] LABS: Anion Gap 8 (5-15); BUN 81 mg/dL (7-18); BUN/Creat Ratio 47.9 RATIO (10-20); Calcium,Total 9.1 mg/dL (8.5-10.1); Chloride 95 mmol/L (98-107); Creatinine, Serum 1.69 mg/dL (0.55-1.02); EST Glomerular Filtration Rate 32 mL/min (>60); Est Glom Filt Rate - Afr Amer 38 mL/min (>60); Estimated Creatinine Clearance 28.58 ml/min; Glucose 189 mg/dL (74-106); Potassium 4.2 mmol/L (3.5-5.1); Sodium Level 127 mmol/L (136-145)
[2020-05-12 05:48] LABS: International Normalized Ratio 2.9; Prothrombin Time (Protime)PT. 30.2 SECONDS (11.7-14.9)
[2020-05-12] MEDS: Insulin Lispro 100 UNIT/ML INSULN.PEN SC ×4 (06:23→22:34)
[2020-05-12] MEDS: Sertraline 100 MG Tablet PO (09:40)
[2020-05-12] MEDS: Allopurinol 100 MG Tablet PO ×2 (09:40→22:37)
[2020-05-12] MEDS: Clopidogrel Bisulfate 75 MG Tablet PO (09:40)
[2020-05-12] MEDS: Gabapentin 300 MG Capsule PO ×2 (09:40→22:36)
[2020-05-12] MEDS: Furosemide 40 MG/4 ML Vial IV (09:41)
[2020-05-12] MEDS: Pantoprazole Sodium 40 MG Tablet PO (09:41)
[2020-05-12] MEDS: Carvedilol 6.25 MG Tablet PO ×2 (09:41→22:37)
[2020-05-12] MEDS: dexAMETHasone 4 MG Tablet 6 MG PO (09:41)
[2020-05-12] MEDS: Nystatin Powder 15gm Bottle 1 APPLIC TOPICAL ×2 (09:43→22:37)
--- NOTE | 2020-05-12 10:24 | PN_ITS ---
Patient Problems: Active and Suspected Problems (Last Reviewed 05/04/20 @ 14:[address] Daphne Patel, DO) CHF exacerbation (Acute) Non-ST elevation myocardial infarction (NSTEMI) (Acute) Cardiomyopathy (Acute) COVID-19 (Acute) Acute respiratory failure (Acute) Subjective: Patient did okay overnight. Patient did have some hyperglycemia, but this morning feels subjectively improved. Patient was on nasal cannula at 15 L this morning during my evaluation. Patient denies any chest pain and felt that her energy was better than yesterday. - Physical Exam Vitals/I&O's: Vital Signs Temp Pulse Resp BP Pulse Ox 36.2 C L 66 18 105/44 L 94 05/12/20 09:38 05/12/20 09:38 05/12/20 09:38 05/12/20 09:38 05/12/20 09:38 Oxygen Flow Rate (L/min) 15 Oxygen Delivery Method Nasal Cannula Weight: 85.5 kg Body Mass Index (BMI) 30.5 Intake and Output for Last 24 Hours 05/10/20 05/11/20 05/12/20 23:59 23:59 23:59 Intake Total 600 / 600 240 / 240 Output Total 2150 / 2150 2100 / 2100 325 / 325 Balance -2150 / -2150 -1500 / -1500 -85 / -85 General: Alert, Oriented x3, Cooperative, - - Mild to moderate conversational dyspnea. Obese. HEENT: Atraumatic, PERRLA, EOMI, Normocephalic, - - No scleral icterus or injection noted Oral: Moist Mucosa, No Gingival or Mucosal Lesions/ Ulcerations, - - Crowded posterior pharynx Neck: Supple, No JVD, No Nodes, Trachea Midline, Thyroid Normal Size and Texture Lungs: No rhonchi, No wheeze, No rales, Diminished, - - Fair effort Cardiovascular: Normal S1, Normal S2, No murmurs, No rub noted, No Gallop Abdomen: Bowel Sounds Present, Soft, Non Tender, Non-Distended, Obese Extremities: No cyanosis, Edema Skin: - - No change compared to previous Musculoskeletal: No Tenderness to Palpation of Joints or Extremities Lymphatic: No Cervical, Supraclavicular, or Inguinal Adenopathy Neurological: Cranial nerves II-XII grossly intact, Neuro grossly intact, Motor Exam 5/5 strength throughout Psych/Mental Status: Flat Affect, Restless Microbiology Past 72 Hours 05/04/20 13:13 Blood Culture (Wb) #2 - Anticubital Left Blood Culture - Final No growth in 5 days. 05/04/20 12:50 Blood Culture (Wb) - Anticubital Right Blood Culture - Final No growth in 5 days. Laboratory Results 05/11/20 21:37: POC Glucose > 500 H* 05/11/20 21:41: POC Glucose > 500 H* 05/12/20 04:58: PT 30.2 H, INR 2.9 05/12/20 04:58: Sodium 127 L, Potassium 4.2, Chloride 95 L, Carbon Dioxide 24.0, Anion Gap 8, BUN 81 H, Creatinine 1.69 H, Estim Creat Clear Calc 28.58, Est GFR (MDRD) Af Amer 38 L, Est GFR (MDRD) Non-Af 32 L, BUN/Creatinine Ratio 47.9 H, Glucose 189 H, Calcium 9.1 Current Medications Acetaminophen (Acetaminophen 325 Mg Tablet) 650 mg PO Q6H PRN PRN PRN Reason: Pain Score 1-10/Temp > 100.7 F Last Admin: 05/09/20 00:59 Dose: 650 mg Documented by: Al Hydroxide/Mg Hydroxide (Mag Hydrox/Al Hydrox/Simeth 30 Ml Udc) 30 ml PO Q6H PRN PRN PRN Reason: Gastric Burning Albuterol Sulfate (Albuterol Sulfate 8 Gm Inhaler (60 Puffs)) 1 puff INHALATION Q4H PRN PRN PRN Reason: SOB/Wheezing Last Admin: 05/06/20 05:19 Dose: 1 puff Documented by: Allopurinol (Allopurinol 100 Mg Tablet) 100 mg PO BID [facility] Last Admin: 05/12/20 09:40 Dose: 100 mg Documented by: Amlodipine Besylate (Amlodipine 5 Mg Tablet) 5 mg PO QHS [facility] Last Admin: 05/11/20 21:47 Dose: Not Given Documented by: Carvedilol (Carvedilol 6.25 Mg Tablet) 6.25 mg PO BID [facility] Last Admin: 05/12/20 09:41 Dose: 6.25 mg Documented by: Clopidogrel Bisulfate (Clopidogrel Bisulfate 75 Mg Tablet) 75 mg PO DAILY [facility] Last Admin: 05/12/20 09:40 Dose: 75 mg Documented by: Dexamethasone (Dexamethasone 4 Mg Tablet) 6 mg PO DAILY [facility] Stop: 05/13/20 10:01 Last Admin: 05/12/20 09:41 Dose: 6 mg Documented by: Docusate Sodium (Docusate Sodium 100 Mg Capsule) 100 mg PO BID PRN PRN PRN Reason: Constipation Last Admin: 05/09/20 00:59 Dose: 100 mg Documented by: Furosemide (Furosemide 40 Mg/4 Ml Vial) 40 mg IV DAILY [facility] Last Admin: 05/12/20 09:41 Dose: 40 mg Documented by: Gabapentin (Gabapentin 300 Mg Capsule) 300 mg PO BID [facility] Last Admin: 05/12/20 09:40 Dose: 300 mg Documented by: Guaifenesin (Guaifenesin 10 Ml Udc (200mg/10ml)) 10 ml PO Q4H PRN PRN PRN Reason: COUGH Sodium Chloride () 250 mls @ 15 mls/hr IV .[id number] PRN PRN Reason: Saline Flush Last Infusion: 05/06/20 06:05 Dose: 0 mls/hr Documented by: Sodium Chloride () 250 mls @ 15 mls/hr IV .[id number] PRN PRN Reason: Additional IVPB Infusion Insulin Glargine (Insulin Glargine 100 Units/Ml Pen) 10 units SC QHS [facility] Last Admin: 05/11/20 23:16 Dose: 10 u Documented by: Insulin Human Lispro (Insulin Lispro 100 Unit/Ml Insuln.Pen) 0 unit SC [facility]; Protocol Last Admin: 05/12/20 06:23 Dose: 3 u Documented by: Melatonin (Melatonin 3 Mg Tablet) 3 mg PO QHS PRN PRN PRN Reason: INSOMNIA Last Admin: 05/11/20 21:46 Dose: 3 mg Documented by: Miscellaneous Information (Inhaler, Assist Devices 1 Each Spacer) 1 each INHALATION Q4HWA PRN PRN Reason: INHALER USE Morphine Sulfate (Morphine 2 Mg/Ml Syringe) 2 mg IV Q3H PRN PRN PRN Reason: Pain Score 6-10 Nystatin (Nystatin Powder 15gm Bottle) 1 applic TOPICAL BID [facility]; Protocol Last Admin: 05/12/20 09:43 Dose: 1 applicatio Documented by: Ondansetron HCl (Ondansetron 4 Mg/2 Ml Vial) 4 mg IV Q8H PRN PRN PRN Reason: NAUSEA/VOMITING Last Admin: 05/09/20 12:41 Dose: 4 mg Documented by: Pantoprazole Sodium (Pantoprazole Sodium 40 Mg Tablet) 40 mg PO DAILY [facility] Last Admin: 05/12/20 09:41 Dose: 40 mg Documented by: Pravastatin Sodium (Pravastatin 80 Mg Tablet) 80 mg PO QHS [facility] Last Admin: 05/11/20 21:46 Dose: 80 mg Documented by: Sertraline HCl (Sertraline 100 Mg Tablet) 100 mg PO DAILY [facility] Last Admin: 05/12/20 09:40 Dose: 100 mg Documented by: Sodium Chloride (0.9% Saline Lock 10 Ml Syringe) 10 - 40 ml IV UD PRN PRN Reason: SALINE FLUSH Last Admin: 05/10/20 16:57 Dose: 10 ml Documented by: Sodium Chloride (Sodium Chloride 0.65% 1 [place].Btl) 1 spray NASAL TID PRN PRN PRN Reason: NASAL DRYNESS Last Admin: 05/11/20 21:46 Dose: 1 spray Documented by: Warfarin Sodium (Jantoven 2 Mg Tablet) 2 mg PO DAILY@1700 [facility] Last Admin: 05/11/20 17:49 Dose: 2 mg Documented by: Medical Necessity - Tobacco Use Smoking Status: Former smoker Tobacco Use: Cigarettes Assessment/Plan All Active Problems (Last Reviewed 05/04/20 @ 14:[address] Daphne Patel, DO) CHF exacerbation (Acute) Non-ST elevation myocardial infarction (NSTEMI) (Acute) CHF (congestive heart failure) (Acute) Cardiomyopathy (Acute) COVID-19 (Acute) Acute respiratory failure (Acute) NSTEMI (non-ST elevated myocardial infarction) (Resolved) RECOMMENDATIONS: 1. Continue BiPAP therapy and wean FiO2 to maintain oxygen saturations at or above 90%. BiPAP breaks as tolerated while not sleeping 2. Attempt diuresis as tolerated by hemodynamics and renal function. Hold on additional dose of Lasix this evening 3. Continue Decadron. Completed remdesivir. 4. Okay to continue with Coumadin 5. Increase activity as tolerated 6. Consider LTAC evaluation for disposition IMPRESSIONS: 1. Acute on chronic hypoxemic respiratory failure secondary to combined decompensated heart failure and COVID-19 pneumonia The patient will be continued on BiPAP therapy as tolerated with goals to wean her FiO2 to maintain oxygen saturations at or above 90%. Resume Lasix as tolerated by hemodynamics and renal function. The patient will be continued on Decadron. Remdesivir has been completed. Liver function appears to be appropriate. Likely not necessary to monitor liver function from my perspective. 2. Acute on chronic kidney disease Continue attempts at gentle diuresis as tolerated by renal function. Lasix scheduled daily appears to be tolerating. Patient is achieving a negative fluid balance on a daily basis with current regimen. Patient tolerated the additional dose of Lasix yesterday. Patient did have some elevation of BUN and creatinine overnight. We will hold on additional dose of Lasix this evening. Okay to continue with daily dose. Weight much improved compared to previous. 3. Coagulopathy The patient presented to the hospital with a supratherapeutic INR. Okay to reinitiate Coumadin therapy from my perspective. No bleeding complications have been noted despite elevated INR on presentation. 4. History of ischemic cardiomyopathy/hypertension/hyperlipidemia/peripheral vascular disease/diabetes mellitus/questionable COPD/obesity Complicates care, management, recovery and prognosis. Continue home medications as tolerated. Inpatient E&M: [id number] [facility] L3
[2020-05-12 13:21] LABS: Bedside Glucose 218 mg/dL (70-110)
--- NOTE | 2020-05-12 16:04 | PN_ITS ---
Patient Problems: Active and Suspected Problems (Last Reviewed 05/04/20 @ 14:[address] Daphne Patel, DO) CHF exacerbation (Acute) Non-ST elevation myocardial infarction (NSTEMI) (Acute) Cardiomyopathy (Acute) COVID-19 (Acute) Acute respiratory failure (Acute) Subjective: Patient was seen and examined today, she is currently on high flow nasal cannula O2. Patient denies any fevers or chills. Objective: General: Alert, Oriented x3, Cooperative, No apparent distress, Well developed, Well nourished HEENT: Atraumatic, PERRLA, EOMI, Normocephalic Oral: Moist Mucosa Neck: Supple, No JVD, Trachea Midline, Thyroid Normal Size and Texture Lungs: Clear to auscultation, Normal air movement, No rhonchi, No wheeze, No rales Cardiovascular: Regular rate, Regular Rhythm, Normal S1, Normal S2, No murmurs, PMI Normal, No rub noted, No Gallop Abdomen: Bowel Sounds Present, Soft, Non Tender, Non-Distended Extremities: No clubbing, No cyanosis, No edema, Capillary Refill Less than 3 Seconds Skin: No rashes, No breakdown Musculoskeletal: No Tenderness to Palpation of Joints or Extremities Neurological: Cranial nerves II-XII grossly intact, Neuro grossly intact, Sensory exam intact to light touch and pain Psych/Mental Status: Normal Affect, Appropriate, Alert and oriented to time, place, person, mood and affect - Physical Exam Vitals/I&O's: Vital Signs Temp Pulse Resp BP Pulse Ox 97.1 F L 60 18 105/44 L 94 05/12/20 09:38 05/12/20 14:54 05/12/20 09:38 05/12/20 09:38 05/12/20 09:38 Oxygen Flow Rate (L/min) 16 Oxygen Delivery Method Nasal Cannula Weight: 85.5 kg Body Mass Index (BMI) 30.5 Intake and Output for Last 24 Hours 05/10/20 05/11/20 05/12/20 23:59 23:59 23:59 Intake Total 600 / 600 480 / 480 Output Total 2150 / 2150 2100 / 2100 775 / 775 Balance -2150 / -2150 -1500 / -1500 -295 / -295 Microbiology Past 72 Hours 05/04/20 13:13 Blood Culture (Wb) #2 - Anticubital Left Blood Culture - Fi nal No growth in 5 days. 05/04/20 12:50 Blood Culture (Wb) - Anticubital Right Blood Culture - Final No growth in 5 days. Laboratory Results 05/11/20 21:37: POC Glucose > 500 H* 05/11/20 21:41: POC Glucose > 500 H* 05/12/20 04:58: PT 30.2 H, INR 2.9 05/12/20 04:58: Sodium 127 L, Potassium 4.2, Chloride 95 L, Carbon Dioxide 24.0, Anion Gap 8, BUN 81 H, Creatinine 1.69 H, Estim Creat Clear Calc 28.58, Est GFR (MDRD) Af Amer 38 L, Est GFR (MDRD) Non-Af 32 L, BUN/Creatinine Ratio 47.9 H, Glucose 189 H, Calcium 9.1 05/12/20 11:50: POC Glucose 218 H Current Medications Acetaminophen (Acetaminophen 325 Mg Tablet) 650 mg PO Q6H PRN PRN PRN Reason: Pain Score 1-10/Temp > 100.7 F Last Admin: 05/09/20 00:59 Dose: 650 mg Documented by: Al Hydroxide/Mg Hydroxide (Mag Hydrox/Al Hydrox/Simeth 30 Ml Udc) 30 ml PO Q6H PRN PRN PRN Reason: Gastric Burning Albuterol Sulfate (Albuterol Sulfate 8 Gm Inhaler (60 Puffs)) 1 puff INHALATION Q4H PRN PRN PRN Reason: SOB/Wheezing Last Admin: 05/06/20 05:19 Dose: 1 puff Documented by: Allopurinol (Allopurinol 100 Mg Tablet) 100 mg PO BID [facility] Last Admin: 05/12/20 09:40 Dose: 100 mg Documented by: Amlodipine Besylate (Amlodipine 5 Mg Tablet) 5 mg PO QHS [facility] Last Admin: 05/11/20 21:47 Dose: Not Given Documented by: Carvedilol (Carvedilol 6.25 Mg Tablet) 6.25 mg PO BID [facility] Last Admin: 05/12/20 09:41 Dose: 6.25 mg Documented by: Clopidogrel Bisulfate (Clopidogrel Bisulfate 75 Mg Tablet) 75 mg PO DAILY [facility] Last Admin: 05/12/20 09:40 Dose: 75 mg Documented by: Dexamethasone (Dexamethasone 4 Mg Tablet) 6 mg PO DAILY [facility] Stop: 05/13/20 10:01 Last Admin: 05/12/20 09:41 Dose: 6 mg Documented by: Docusate Sodium (Docusate Sodium 100 Mg Capsule) 100 mg PO BID PRN PRN PRN Reason: Constipation Last Admin: 05/09/20 00:59 Dose: 100 mg Documented by: Furosemide (Furosemide 40 Mg/4 Ml Vial) 40 mg IV DAILY [facility] Last Admin: 05/12/20 09:41 Dose: 40 mg Documented by: Gabapentin (Gabapentin 300 Mg Capsule) 300 mg PO BID [facility] Last Admin: 05/12/20 09:40 Dose: 300 mg Documented by: Guaifenesin (Guaifenesin 10 Ml Udc (200mg/10ml)) 10 ml PO Q4H PRN PRN PRN Reason: COUGH Sodium Chloride () 250 mls @ 15 mls/hr IV .[id number] PRN PRN Reason: Saline Flush Last Infusion: 05/06/20 06:05 Dose: 0 mls/hr Documented by: Sodium Chloride () 250 mls @ 15 mls/hr IV .[id number] PRN PRN Reason: Additional IVPB Infusion Insulin Glargine (Insulin Glargine 100 Units/Ml Pen) 10 units SC QHS [facility] Last Admin: 05/11/20 23:16 Dose: 10 u Documented by: Insulin Human Lispro (Insulin Lispro 100 Unit/Ml Insuln.Pen) 0 unit SC [facility]; Protocol Last Admin: 05/12/20 11:52 Dose: 6 u Documented by: Melatonin (Melatonin 3 Mg Tablet) 3 mg PO QHS PRN PRN PRN Reason: INSOMNIA Last Admin: 05/11/20 21:46 Dose: 3 mg Documented by: Miscellaneous Information (Inhaler, Assist Devices 1 Each Spacer) 1 each INHALATION Q4HWA PRN PRN Reason: INHALER USE Morphine Sulfate (Morphine 2 Mg/Ml Syringe) 2 mg IV Q3H PRN PRN PRN Reason: Pain Score 6-10 Nystatin (Nystatin Powder 15gm Bottle) 1 applic TOPICAL BID [facility]; Protocol Last Admin: 05/12/20 09:43 Dose: 1 applicatio Documented by: Ondansetron HCl (Ondansetron 4 Mg/2 Ml Vial) 4 mg IV Q8H PRN PRN PRN Reason: NAUSEA/VOMITING Last Admin: 05/09/20 12:41 Dose: 4 mg Documented by: Pantoprazole Sodium (Pantoprazole Sodium 40 Mg Tablet) 40 mg PO DAILY [facility] Last Admin: 05/12/20 09:41 Dose: 40 mg Documented by: Pravastatin Sodium (Pravastatin 80 Mg Tablet) 80 mg PO QHS [facility] Last Admin: 05/11/20 21:46 Dose: 80 mg Documented by: Sertraline HCl (Sertraline 100 Mg Tablet) 100 mg PO DAILY [facility] Last Admin: 05/12/20 09:40 Dose: 100 mg Documented by: Sodium Chloride (0.9% Saline Lock 10 Ml Syringe) 10 - 40 ml IV UD PRN PRN Reason: SALINE FLUSH Last Admin: 05/10/20 16:57 Dose: 10 ml Documented by: Sodium Chloride (Sodium Chloride 0.65% 1 [place].Btl) 1 spray NASAL TID PRN PRN PRN Reason: NASAL DRYNESS Last Admin: 05/11/20 21:46 Dose: 1 spray Documented by: Warfarin Sodium (Jantoven 2 Mg Tablet) 2 mg PO DAILY@1700 [facility] Last Admin: 05/11/20 17:49 Dose: 2 mg Documented by: Medical Necessity - Tobacco Use Smoking Status: Former smoker Tobacco Use: Cigarettes Assessment/Plan All Active Problems (Last Reviewed 05/04/20 @ 14:[address] Daphne Patel, DO) CHF exacerbation (Acute) Non-ST elevation myocardial infarction (NSTEMI) (Acute) CHF (congestive heart failure) (Acute) Cardiomyopathy (Acute) COVID-19 (Acute) Acute respiratory failure (Acute) NSTEMI (non-ST elevated myocardial infarction) (Resolved) #1 acute on chronic hypoxic respiratory failure secondary to COVID-19 pneumonia and underlying acute on chronic systolic congestive heart failure-patient is receiving Decadron at the present time, she finished her remdesivir. Pulmonary medicine is participating in her care, she may ultimately need to go to an LTAC if she does not improve. Patient is still intermittently on BiPAP, her overall status is not changed significantly from yesterday. #2 acute on chronic systolic congestive heart failure-patient remains on Lasix at this time #3 chronic kidney disease stage III-BMP will be monitored #4 coagulopathy secondary to Coumadin usage-patient's INR today is 2.9, recheck INR tomorrow #5 atherosclerotic heart disease #6 ischemic cardiomyopathy #7 type 2 diabetes-continue to monitor blood sugars, I will make adjustments in her insulin #8 COVID-19 pneumonia #9 hyponatremia-I will recheck patient's BMP Inpatient E&M: [id number] [facility] L2
[2020-05-12] MEDS: Jantoven 2 MG Tablet PO (16:33)
[2020-05-12 17:50] LABS: Bedside Glucose 248 mg/dL (70-110)
[2020-05-12] MEDS: Pravastatin 80 MG Tablet PO (22:37)
[2020-05-12] MEDS: amLODIPine 5 MG Tablet PO (22:37)
[2020-05-12 23:31] LABS: Bedside Glucose 372 mg/dL (70-110)
[2020-05-13] VITALS (14 sets, daily range): BP systolic 118–136; BP diastolic 55–76; PULSE 58–71; RESP 12–24; TEMP 35.8–36.6; O2SAT 91–96
[2020-05-13] MEDS: Insulin Lispro 100 UNIT/ML INSULN.PEN SC ×4 (06:26→22:51)
[2020-05-13 06:36] LABS: Bedside Glucose 257 mg/dL (70-110)
--- NOTE | 2020-05-13 08:08 | PCM.PN.PUL ---
Patient Problems: Active and Suspected Problems (Last Reviewed 05/04/20 @ 14:[address] Daphne Patel, DO) CHF exacerbation (Acute) Non-ST elevation myocardial infarction (NSTEMI) (Acute) Cardiomyopathy (Acute) COVID-19 (Acute) Acute respiratory failure (Acute) Subjective: Patient did okay overnight. Patient still requires 15 L nasal cannula to tolerate being off of Airvo. Patient was compliant with BiPAP overnight and tolerated it well. Blood sugars remain high. - Physical Exam Vitals/I&O's: Vital Signs Temp Pulse Resp BP Pulse Ox 36.6 C 63 20 H 127/55 H 92 05/13/20 05:00 05/13/20 05:34 05/13/20 07:03 05/13/20 05:00 05/13/20 05:34 Oxygen Flow Rate (L/min) 15 Oxygen Delivery Method Bi-pap Weight: 82.8 kg Body Mass Index (BMI) 30.5 Intake and Output for Last 24 Hours 05/11/20 05/12/20 05/13/20 23:59 23:59 23:59 Intake Total 600 / 600 1030 / 1030 200 / 200 Output Total 2100 / 2100 1875 / 1875 400 / 400 Balance -1500 / -1500 -845 / -845 -200 / -200 General: Cooperative, No apparent distress, - - Resting comfortably. Obese. Good BiPAP synchrony. HEENT: Atraumatic, PERRLA, EOMI, Normocephalic Oral: Moist Mucosa, No Gingival or Mucosal Lesions/ Ulcerations Neck: Supple, No JVD, No Nodes, Trachea Midline Lungs: No rhonchi, No wheeze, No rales, Diminished Cardiovascular: Regular rate, Regular Rhythm, Normal S1, Normal S2, No murmurs, No rub noted, No Gallop Abdomen: Bowel Sounds Present, Soft, Non Tender, Non-Distended, Obese Extremities: No clubbing, No cyanosis, Edema Skin: - - No change from previous Musculoskeletal: No Tenderness to Palpation of Joints or Extremities Lymphatic: No Cervical, Supraclavicular, or Inguinal Adenopathy Neurological: Cranial nerves II-XII grossly intact, Neuro grossly intact, Motor Exam 5/5 strength throughout Psych/Mental Status: Flat Affect Laboratory Results 05/12/20 11:50: POC Glucose 218 H 05/12/20 16:27: POC Glucose 248 H 05/12/20 22:34: POC Glucose 372 H 05/13/20 06:23: POC Glucose 257 H Current Medications Acetaminophen (Acetaminophen 325 Mg Tablet) 650 mg PO Q6H PRN PRN PRN Reason: Pain Score 1-10/Temp > 100.7 F Last Admin: 05/09/20 00:59 Dose: 650 mg Documented by: Al Hydroxide/Mg Hydroxide (Mag Hydrox/Al Hydrox/Simeth 30 Ml Udc) 30 ml PO Q6H PRN PRN PRN Reason: Gastric Burning Albuterol Sulfate (Albuterol Sulfate 8 Gm Inhaler (60 Puffs)) 1 puff INHALATION Q4H PRN PRN PRN Reason: SOB/Wheezing Last Admin: 05/06/20 05:19 Dose: 1 puff Documented by: Allopurinol (Allopurinol 100 Mg Tablet) 100 mg PO BID [facility] Last Admin: 05/12/20 22:37 Dose: 100 mg Documented by: Amlodipine Besylate (Amlodipine 5 Mg Tablet) 5 mg PO QHS [facility] Last Admin: 05/12/20 22:37 Dose: 5 mg Documented by: Carvedilol (Carvedilol 6.25 Mg Tablet) 6.25 mg PO BID [facility] Last Admin: 05/12/20 22:37 Dose: 6.25 mg Documented by: Clopidogrel Bisulfate (Clopidogrel Bisulfate 75 Mg Tablet) 75 mg PO DAILY [facility] Last Admin: 05/12/20 09:40 Dose: 75 mg Documented by: Dexamethasone (Dexamethasone 4 Mg Tablet) 6 mg PO DAILY [facility] Stop: 05/13/20 10:01 Last Admin: 05/12/20 09:41 Dose: 6 mg Documented by: Docusate Sodium (Docusate Sodium 100 Mg Capsule) 100 mg PO BID PRN PRN PRN Reason: Constipation Last Admin: 05/09/20 00:59 Dose: 100 mg Documented by: Furosemide (Furosemide 40 Mg/4 Ml Vial) 40 mg IV DAILY [facility] Last Admin: 05/12/20 09:41 Dose: 40 mg Documented by: Gabapentin (Gabapentin 300 Mg Capsule) 300 mg PO BID [facility] Last Admin: 05/12/20 22:36 Dose: 300 mg Documented by: Guaifenesin (Guaifenesin 10 Ml Udc (200mg/10ml)) 10 ml PO Q4H PRN PRN PRN Reason: COUGH Sodium Chloride () 250 mls @ 15 mls/hr IV .[id number] PRN PRN Reason: Saline Flush Last Infusion: 05/06/20 06:05 Dose: 0 mls/hr Documented by: Sodium Chloride () 250 mls @ 15 mls/hr IV .[id number] PRN PRN Reason: Additional IVPB Infusion Insulin Glargine (Insulin Glargine 100 Units/Ml Pen) 25 units SC BID [facility] Insulin Human Lispro (Insulin Lispro 100 Unit/Ml Insuln.Pen) 0 unit SC ACHS [facility]; Protocol Last Admin: 05/13/20 06:26 Dose: 6 u Documented by: Melatonin (Melatonin 3 Mg Tablet) 3 mg PO QHS PRN PRN PRN Reason: INSOMNIA Last Admin: 05/11/20 21:46 Dose: 3 mg Documented by: Miscellaneous Information (Inhaler, Assist Devices 1 Each Spacer) 1 each INHALATION Q4HWA PRN PRN Reason: INHALER USE Morphine Sulfate (Morphine 2 Mg/Ml Syringe) 2 mg IV Q3H PRN PRN PRN Reason: Pain Score 6-10 Nystatin (Nystatin Powder 15gm Bottle) 1 applic TOPICAL BID [facility]; Protocol Last Admin: 05/12/20 22:37 Dose: 1 applicatio Documented by: Ondansetron HCl (Ondansetron 4 Mg/2 Ml Vial) 4 mg IV Q8H PRN PRN PRN Reason: NAUSEA/VOMITING Last Admin: 05/09/20 12:41 Dose: 4 mg Documented by: Pantoprazole Sodium (Pantoprazole Sodium 40 Mg Tablet) 40 mg PO DAILY [facility] Last Admin: 05/12/20 09:41 Dose: 40 mg Documented by: Pravastatin Sodium (Pravastatin 80 Mg Tablet) 80 mg PO QHS [facility] Last Admin: 05/12/20 22:37 Dose: 80 mg Documented by: Sertraline HCl (Sertraline 100 Mg Tablet) 100 mg PO DAILY [facility] Last Admin: 05/12/20 09:40 Dose: 100 mg Documented by: Sodium Chloride (0.9% Saline Lock 10 Ml Syringe) 10 - 40 ml IV UD PRN PRN Reason: SALINE FLUSH Last Admin: 05/10/20 16:57 Dose: 10 ml Documented by: Sodium Chloride (Sodium Chloride 0.65% 1 [place].Btl) 1 spray NASAL TID PRN PRN PRN Reason: NASAL DRYNESS Last Admin: 05/11/20 21:46 Dose: 1 spray Documented by: Warfarin Sodium (Jantoven 2 Mg Tablet) 2 mg PO DAILY@1700 AMBAR Last Admin: 05/12/20 16:33 Dose: 2 mg Documented by: Medical Necessity - Tobacco Use Smoking Status: Former smoker Tobacco Use: Cigarettes Assessment/Plan All Active Problems (Last Reviewed 05/04/20 @ 14:[address] Daphne Patel, DO) CHF exacerbation (Acute) Non-ST elevation myocardial infarction (NSTEMI) (Acute) CHF (congestive heart failure) (Acute) Cardiomyopathy (Acute) COVID-19 (Acute) Acute respiratory failure (Acute) NSTEMI (non-ST elevated myocardial infarction) (Resolved) RECOMMENDATIONS: 1. Continue BiPAP therapy and wean FiO2 to maintain oxygen saturations at or above 90%. BiPAP breaks as tolerated while not sleeping 2. Continue diuresis as tolerated by hemodynamics and renal function. Recheck BMP tomorrow 3. Continue Decadron. Completed remdesivir. 4. Okay to continue with Coumadin 5. Increase activity as tolerated 6. Consider LTAC evaluation for disposition IMPRESSIONS: 1. Acute on chronic hypoxemic respiratory failure secondary to combined decompensated heart failure and COVID-19 pneumonia The patient will be continued on BiPAP therapy as tolerated with goals to wean her FiO2 to maintain oxygen saturations at or above 90%. Resume Lasix as tolerated by hemodynamics and renal function. The patient will be continued on Decadron. Remdesivir has been completed. Anticipate slow recovery given patient's relatively sedentary behavior. Consider LTAC evaluation. 2. Acute on chronic kidney disease Continue attempts at gentle diuresis as tolerated by renal function. Lasix scheduled daily appears to be tolerating. Patient is achieving a negative fluid balance on a daily basis with current regimen. Patient tolerated the additional dose of Lasix yesterday. Patient did have some elevation of BUN and creatinine overnight. We will hold on additional dose of Lasix this evening. Okay to continue with daily dose. Weight much improved compared to previous. Recheck chemistries tomorrow 3. Coagulopathy The patient presented to the hospital with a supratherapeutic INR. Okay to reinitiate Coumadin therapy from my perspective. No bleeding complications have been noted despite elevated INR on presentation. 4. History of ischemic cardiomyopathy/hypertension/hyperlipidemia/peripheral vascular disease/diabetes mellitus/questionable COPD/obesity Complicates care, management, recovery and prognosis. Continue home medications as tolerated. Increase [facility] Inpatient E&M: [id number] [facility] Hosp L3
[2020-05-13] MEDS: Pantoprazole Sodium 40 MG Tablet PO (08:30)
[2020-05-13] MEDS: Allopurinol 100 MG Tablet PO ×2 (08:30→22:50)
[2020-05-13] MEDS: Gabapentin 300 MG Capsule PO ×2 (08:30→22:50)
[2020-05-13] MEDS: Carvedilol 6.25 MG Tablet PO ×2 (08:30→22:50)
[2020-05-13] MEDS: dexAMETHasone 4 MG Tablet 6 MG PO (08:30)
[2020-05-13] MEDS: Sertraline 100 MG Tablet PO (08:30)
[2020-05-13 08:31] LABS: Prothrombin Time (Protime)PT. 34.8 SECONDS (11.7-14.9)
[2020-05-13] MEDS: Furosemide 40 MG/4 ML Vial IV (08:31)
[2020-05-13] MEDS: Clopidogrel Bisulfate 75 MG Tablet PO (08:31)
[2020-05-13] MEDS: Nystatin Powder 15gm Bottle 1 APPLIC TOPICAL ×2 (08:32→22:51)
[2020-05-13 08:41] LABS: International Normalized Ratio 3.5
--- NOTE | 2020-05-13 15:46 | PN_ITS ---
Patient Problems: Active and Suspected Problems (Last Reviewed 05/04/20 @ 14:[address] Daphne Patel, DO) CHF exacerbation (Acute) Non-ST elevation myocardial infarction (NSTEMI) (Acute) Cardiomyopathy (Acute) COVID-19 (Acute) Acute respiratory failure (Acute) Subjective: Patient was seen and examined today, her INR today was 3.5, I have elected not to adjust her Coumadin and recheck the INR tomorrow. Patient is still on 15 L via nasal cannula, she appears comfortable and does not complain of any chills fevers or severe shortness of breath. Objective: General: Alert, Oriented x3, Cooperative, No apparent distress, Well developed, Well nourished HEENT: Atraumatic, PERRLA, EOMI, Normocephalic Oral: Moist Mucosa Neck: Supple, No JVD, Trachea Midline, Thyroid Normal Size and Texture Lungs: Clear to auscultation, Normal air movement, No rhonchi, No wheeze, No rales Cardiovascular: Regular rate, Regular Rhythm, Normal S1, Normal S2, No murmurs, PMI Normal, No rub noted, No Gallop Abdomen: Bowel Sounds Present, Soft, Non Tender, Non-Distended Extremities: No clubbing, No cyanosis, No edema, Capillary Refill Less than 3 S econds Skin: No rashes, No breakdown Musculoskeletal: No Tenderness to Palpation of Joints or Extremities Neurological: Cranial nerves II-XII grossly intact, Neuro grossly intact, Sensory exam intact to light touch and pain Psych/Mental Status: Normal Affect, Appropriate, Alert and oriented to time, place, person, mood and affect - Physical Exam Vitals/I&O's: Vital Signs Temp Pulse Resp BP Pulse Ox 97.1 F L 70 18 136/64 H 91 05/13/20 10:02 05/13/20 15:06 05/13/20 10:02 05/13/20 10:02 05/13/20 11:00 Oxygen Flow Rate (L/min) 16 Oxygen Delivery Method Nasal Cannula Weight: 82.8 kg Body Mass Index (BMI) 30.5 Intake and Output for Last 24 Hours 05/11/20 05/12/20 05/13/20 23:59 23:59 23:59 Intake Total 600 / 600 1030 / 1030 400 / 400 Output Total 2100 / 2100 1875 / 1875 750 / 750 Balance -1500 / -1500 -845 / -845 -350 / -350 Laboratory Results 05/12/20 16:27: POC Glucose 248 H 05/12/20 22:34: POC Glucose 372 H 05/13/20 06:20: PT 34.8 H, INR 3.5 H* 05/13/20 06:23: POC Glucose 257 H Current Medications Acetaminophen (Acetaminophen 325 Mg Tablet) 650 mg PO Q6H PRN PRN PRN Reason: Pain Score 1-10/Temp > 100.7 F Last Admin: 05/09/20 00:59 Dose: 650 mg Documented by: Al Hydroxide/Mg Hydroxide (Mag Hydrox/Al Hydrox/Simeth 30 Ml Udc) 30 ml PO Q6H PRN PRN PRN Reason: Gastric Burning Albuterol Sulfate (Albuterol Sulfate 8 Gm Inhaler (60 Puffs)) 1 puff INHALATION Q4H PRN PRN PRN Reason: SOB/Wheezing Last Admin: 05/06/20 05:19 Dose: 1 puff Documented by: Allopurinol (Allopurinol 100 Mg Tablet) 100 mg PO BID REPLACED BY [facility] Last Admin: 05/13/20 08:30 Dose: 100 mg Documented by: Amlodipine Besylate (Amlodipine 5 Mg Tablet) 5 mg PO QHS REPLACED BY [facility] Last Admin: 05/12/20 22:37 Dose: 5 mg Documented by: Carvedilol (Carvedilol 6.25 Mg Tablet) 6.25 mg PO BID REPLACED BY [facility] Last Admin: 05/13/20 08:30 Dose: 6.25 mg Documented by: Clopidogrel Bisulfate (Clopidogrel Bisulfate 75 Mg Tablet) 75 mg PO DAILY REPLACED BY [facility] Last Admin: 05/13/20 08:31 Dose: 75 mg Documented by: Docusate Sodium (Docusate Sodium 100 Mg Capsule) 100 mg PO BID PRN PRN PRN Reason: Constipation Last Admin: 05/09/20 00:59 Dose: 100 mg Documented by: Furosemide (Furosemide 40 Mg/4 Ml Vial) 40 mg IV DAILY REPLACED BY [facility] Last Admin: 05/13/20 08:31 Dose: 40 mg Documented by: Gabapentin (Gabapentin 300 Mg Capsule) 300 mg PO BID REPLACED BY [facility] Last Admin: 05/13/20 08:30 Dose: 300 mg Documented by: Guaifenesin (Guaifenesin 10 Ml Udc (200mg/10ml)) 10 ml PO Q4H PRN PRN PRN Reason: COUGH Sodium Chloride () 250 mls @ 15 mls/hr IV .[id number] PRN PRN Reason: Saline Flush Last Infusion: 05/06/20 06:05 Dose: 0 mls/hr Documented by: Sodium Chloride () 250 mls @ 15 mls/hr IV .[id number] PRN PRN Reason: Additional IVPB Infusion Insulin Glargine (Insulin Glargine 100 Units/Ml Pen) 25 units SC BID REPLACED BY [facility] Last Admin: 05/13/20 08:31 Dose: 25 units Documented by: Insulin Human Lispro (Insulin Lispro 100 Unit/Ml Insuln.Pen) 0 unit SC ACHS REPLACED BY [facility]; Protocol Last Admin: 05/13/20 11:26 Dose: 12 u Documented by: Melatonin (Melatonin 3 Mg Tablet) 3 mg PO QHS PRN PRN PRN Reason: INSOMNIA Last Admin: 05/11/20 21:46 Dose: 3 mg Documented by: Miscellaneous Information (Inhaler, Assist Devices 1 Each Spacer) 1 each INHALATION Q4HWA PRN PRN Reason: INHALER USE Morphine Sulfate (Morphine 2 Mg/Ml Syringe) 2 mg IV Q3H PRN PRN PRN Reason: Pain Score 6-10 Nystatin (Nystatin Powder 15gm Bottle) 1 applic TOPICAL BID REPLACED BY [facility]; Protocol Last Admin: 05/13/20 08:32 Dose: 1 applicatio Documented by: Ondansetron HCl (Ondansetron 4 Mg/2 Ml Vial) 4 mg IV Q8H PRN PRN PRN Reason: NAUSEA/VOMITING Last Admin: 05/09/20 12:41 Dose: 4 mg Documented by: Pantoprazole Sodium (Pantoprazole Sodium 40 Mg Tablet) 40 mg PO DAILY REPLACED BY [facility] Last Admin: 05/13/20 08:30 Dose: 40 mg Documented by: Pravastatin Sodium (Pravastatin 80 Mg Tablet) 80 mg PO QHS REPLACED BY [facility] Last Admin: 05/12/20 22:37 Dose: 80 mg Documented by: Sertraline HCl (Sertraline 100 Mg Tablet) 100 mg PO DAILY REPLACED BY [facility] Last Admin: 05/13/20 08:30 Dose: 100 mg Documented by: Sodium Chloride (0.9% Saline Lock 10 Ml Syringe) 10 - 40 ml IV UD PRN PRN Reason: SALINE FLUSH Last Admin: 05/10/20 16:57 Dose: 10 ml Documented by: Sodium Chloride (Sodium Chloride 0.65% 1 [place].Btl) 1 spray NASAL TID PRN PRN PRN Reason: NASAL DRYNESS Last Admin: 05/11/20 21:46 Dose: 1 spray Documented by: Warfarin Sodium (Jantoven 2 Mg Tablet) 2 mg PO DAILY@1700 AMBAR Last Admin: 05/12/20 16:33 Dose: 2 mg Documented by: Medical Necessity - Tobacco Use Smoking Status: Former smoker Tobacco Use: Cigarettes Assessment/Plan All Active Problems (Last Reviewed 05/04/20 @ 14:[address] Daphne Patel, DO) CHF exacerbation (Acute) Non-ST elevation myocardial infarction (NSTEMI) (Acute) CHF (congestive heart failure) (Acute) Cardiomyopathy (Acute) COVID-19 (Acute) Acute respiratory failure (Acute) NSTEMI (non-ST elevated myocardial infarction) (Resolved) #1 acute on chronic hypoxic respiratory failure secondary to COVID-19 pneumonia and underlying acute on chronic systolic congestive heart failure-patient finished dexamethasone today, she finished her remdesivir. Pulmonary medicine is participating in her care, she may ultimately need to go to an LTAC if she does not improve. #2 acute on chronic systolic congestive heart failure-patient remains on Lasix at this time #3 chronic kidney disease stage III-BMP will be monitored #4 coagulopathy secondary to Coumadin usage-patient's INR today is 3.5, recheck INR tomorrow #5 atherosclerotic heart disease #6 ischemic cardiomyopathy #7 type 2 diabetes-continue to monitor blood sugars #8 COVID-19 pneumonia #9 hyponatremia-patient's sodium was 127 today, she will get another BMP tomorrow Inpatient E&M: [id number] Subs Hosp L2
[2020-05-13 16:11] LABS: Bedside Glucose 344 mg/dL (70-110)
[2020-05-13 16:30] LABS: Bedside Glucose 394 mg/dL (70-110)
[2020-05-13] MEDS: Jantoven 2 MG Tablet PO (16:33)
[2020-05-13] MEDS: amLODIPine 5 MG Tablet PO (22:50)
[2020-05-13] MEDS: Pravastatin 80 MG Tablet PO (22:50)
[2020-05-13 23:31] LABS: Bedside Glucose 237 mg/dL (70-110)
[2020-05-14] VITALS (15 sets, daily range): BP systolic 113–139; BP diastolic 41–81; PULSE 56–66; RESP 12–22; TEMP 36.1–36.4; O2SAT 89–97
[2020-05-14] MEDS: MELATONIN 3 MG TABLET PO ×2 (00:46→23:49)
[2020-05-14 07:03] LABS: Prothrombin Time (Protime)PT. 38.1 SECONDS (11.7-14.9)
[2020-05-14 07:06] LABS: Bedside Glucose 122 mg/dL (70-110)
[2020-05-14 07:06] LABS: International Normalized Ratio 3.9
[2020-05-14 07:13] LABS: Anion Gap 10 (5-15); BUN 79 mg/dL (7-18); BUN/Creat Ratio 53.7 RATIO (10-20); Calcium,Total 8.5 mg/dL (8.5-10.1); Chloride 93 mmol/L (98-107); Creatinine, Serum 1.47 mg/dL (0.55-1.02); EST Glomerular Filtration Rate 37 mL/min (>60); Est Glom Filt Rate - Afr Amer 45 mL/min (>60); Estimated Creatinine Clearance 32.86 ml/min; Glucose 124 mg/dL (74-106); Potassium 3.8 mmol/L (3.5-5.1); Sodium Level 128 mmol/L (136-145)
--- NOTE | 2020-05-14 07:31 | RAD_ITS ---
STUDY: X-RAY CHEST REASON FOR EXAM: Female, 70 years old. HYPOXIA TECHNIQUE: AP COMPARISON: 05/05/2020 FINDINGS: EKG leads project over the chest. Patchy reticular and groundglass opacities along the periphery of the mid and lower lung zones overall worse since prior day. There is no demonstrated pleural abnormality. Normal size heart. Normal mediastinum and mignon. Normal visualized pulmonary arteries. There is atherosclerotic calcification of the aortic arch with tortuosity. There is demineralization of the osseous structures. Normal visualized ribs, clavicles, and shoulders. There is no demonstrated abnormality of the visualized soft tissue structures of the upper abdomen. RAD/Chest 1 View (Portable) IMPRESSION: Unfavorable change. Bilateral reticular and groundglass opacities have progressed suggesting pneumonia (including viral causes) or pulmonary edema. 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 Electronically Signed: Wolf Ramirez MD ([place]) at 14:07 EST , Service support ,
--- NOTE | 2020-05-14 07:41 | PCM.PN.PUL ---
Patient Problems: Active and Suspected Problems (Last Reviewed 05/04/20 @ 14:[address] Daphne Patel, DO) CHF exacerbation (Acute) Non-ST elevation myocardial infarction (NSTEMI) (Acute) Cardiomyopathy (Acute) COVID-19 (Acute) Acute respiratory failure (Acute) Subjective: Patient did okay overnight. Patient remains on BiPAP with high FiO2. Patient reports no subjective change in overall condition. Patient is not reporting any chest pain or dyspnea when on BiPAP. - Physical Exam Vitals/I&O's: Vital Signs Temp Pulse Resp BP Pulse Ox 36.1 C L 56 L 15 134/41 H 93 05/14/20 04:35 05/14/20 07:04 05/14/20 04:35 05/14/20 04:35 05/14/20 04:57 Oxygen Flow Rate (L/min) 15 Oxygen Delivery Method Bi-pap Weight: 82.2 kg Body Mass Index (BMI) 30.5 Intake and Output for Last 24 Hours 05/12/20 05/13/20 05/14/20 23:59 23:59 23:59 Intake Total 1030 / 1030 900 / 1140 480 / 480 Output Total 1875 / 1875 1125 / 1625 700 / 700 Balance -845 / -845 -225 / -485 -220 / -220 General: Alert, Oriented x3, Cooperative, No apparent distress - On BiPAP, - - Obese. HEENT: Atraumatic, PERRLA, EOMI, Normocephalic, - - No scleral icterus or injection noted Oral: Moist Mucosa, No Gingival or Mucosal Lesions/ Ulcerations Neck: Supple, No Nodes, Trachea Midline, JVD, Right Lungs: No rhonchi, No wheeze, No rales, Diminished, - - Symmetric expansion. Cardiovascular: Normal S1, Normal S2, No murmurs, Bradycardic, No rub noted, No Gallop Abdomen: Bowel Sounds Present, Soft, Non Tender, Non-Distended, Obese Extremities: No clubbing, No cyanosis, Edema - 1+ lower extremity Skin: - - No change compared to previous Musculoskeletal: No Tenderness to Palpation of Joints or Extremities Lymphatic: No Cervical, Supraclavicular, or Inguinal Adenopathy Neurological: Cranial nerves II-XII grossly intact, Neuro grossly intact, Motor Exam 5/5 strength throughout Psych/Mental Status: Alert and oriented to time, place, person, mood and affect Laboratory Results 05/13/20 06:20: PT 34.8 H, INR 3.5 H* 05/13/20 11:25: POC Glucose 344 H 05/13/20 16:16: POC Glucose 394 H 05/13/20 22:34: POC Glucose 237 H 05/14/20 06:06: PT 38.1 H, INR 3.9 H* 05/14/20 06:06: Sodium 128 L, Potassium 3.8, Chloride 93 L, Carbon Dioxide 25.0, Anion Gap 10, BUN 79 H, Creatinine 1.47 H, Estim Creat Clear Calc 32.86, Est GFR (MDRD) Af Amer 45 L, Est GFR (MDRD) Non-Af 37 L, BUN/Creatinine Ratio 53.7 H, Glucose 124 H, Calcium 8.5 05/14/20 06:56: POC Glucose 122 H Current Medications Acetaminophen (Acetaminophen 325 Mg Tablet) 650 mg PO Q6H PRN PRN PRN Reason: Pain Score 1-10/Temp > 100.7 F Last Admin: 05/09/20 00:59 Dose: 650 mg Documented by: Al Hydroxide/Mg Hydroxide (Mag Hydrox/Al Hydrox/Simeth 30 Ml Udc) 30 ml PO Q6H PRN PRN PRN Reason: Gastric Burning Albuterol Sulfate (Albuterol Sulfate 8 Gm Inhaler (60 Puffs)) 1 puff INHALATION Q4H PRN PRN PRN Reason: SOB/Wheezing Last Admin: 05/06/20 05:19 Dose: 1 puff Documented by: Allopurinol (Allopurinol 100 Mg Tablet) 100 mg PO BID [facility] Last Admin: 05/13/20 22:50 Dose: 100 mg Documented by: Amlodipine Besylate (Amlodipine 5 Mg Tablet) 5 mg PO QHS [facility] Last Admin: 05/13/20 22:50 Dose: 5 mg Documented by: Carvedilol (Carvedilol 6.25 Mg Tablet) 6.25 mg PO BID [facility] Last Admin: 05/13/20 22:50 Dose: 6.25 mg Documented by: Clopidogrel Bisulfate (Clopidogrel Bisulfate 75 Mg Tablet) 75 mg PO DAILY [facility] Last Admin: 05/13/20 08:31 Dose: 75 mg Documented by: Docusate Sodium (Docusate Sodium 100 Mg Capsule) 100 mg PO BID PRN PRN PRN Reason: Constipation Last Admin: 05/09/20 00:59 Dose: 100 mg Documented by: Furosemide (Furosemide 40 Mg/4 Ml Vial) 40 mg IV DAILY [facility] Last Admin: 05/13/20 08:31 Dose: 40 mg Documented by: Gabapentin (Gabapentin 300 Mg Capsule) 300 mg PO BID [facility] Last Admin: 05/13/20 22:50 Dose: 300 mg Documented by: Guaifenesin (Guaifenesin 10 Ml Udc (200mg/10ml)) 10 ml PO Q4H PRN PRN PRN Reason: COUGH Sodium Chloride () 250 mls @ 15 mls/hr IV .[id number] PRN PRN Reason: Saline Flush Last Infusion: 05/06/20 06:05 Dose: 0 mls/hr Documented by: Sodium Chloride () 250 mls @ 15 mls/hr IV .[id number] PRN PRN Reason: Additional IVPB Infusion Insulin Glargine (Insulin Glargine 100 Units/Ml Pen) 25 units SC BID [facility] Last Admin: 05/13/20 22:51 Dose: 25 units Documented by: Insulin Human Lispro (Insulin Lispro 100 Unit/Ml Insuln.Pen) 0 unit SC [facility]; Protocol Last Admin: 05/13/20 22:51 Dose: 6 u Documented by: Melatonin (Melatonin 3 Mg Tablet) 3 mg PO QHS PRN PRN PRN Reason: INSOMNIA Last Admin: 05/14/20 00:46 Dose: 3 mg Documented by: Miscellaneous Information (Inhaler, Assist Devices 1 Each Spacer) 1 each INHALATION Q4HWA PRN PRN Reason: INHALER USE Morphine Sulfate (Morphine 2 Mg/Ml Syringe) 2 mg IV Q3H PRN PRN PRN Reason: Pain Score 6-10 Nystatin (Nystatin Powder 15gm Bottle) 1 applic TOPICAL BID [facility]; Protocol Last Admin: 05/13/20 22:51 Dose: 1 applicatio Documented by: Ondansetron HCl (Ondansetron 4 Mg/2 Ml Vial) 4 mg IV Q8H PRN PRN PRN Reason: NAUSEA/VOMITING Last Admin: 05/09/20 12:41 Dose: 4 mg Documented by: Pantoprazole Sodium (Pantoprazole Sodium 40 Mg Tablet) 40 mg PO DAILY [facility] Last Admin: 05/13/20 08:30 Dose: 40 mg Documented by: Pravastatin Sodium (Pravastatin 80 Mg Tablet) 80 mg PO QHS [facility] Last Admin: 05/13/20 22:50 Dose: 80 mg Documented by: Sertraline HCl (Sertraline 100 Mg Tablet) 100 mg PO DAILY [facility] Last Admin: 05/13/20 08:30 Dose: 100 mg Documented by: Sodium Chloride (0.9% Saline Lock 10 Ml Syringe) 10 - 40 ml IV UD PRN PRN Reason: SALINE FLUSH Last Admin: 05/10/20 16:57 Dose: 10 ml Documented by: Sodium Chloride (Sodium Chloride 0.65% 1 [place].Btl) 1 spray NASAL TID PRN PRN PRN Reason: NASAL DRYNESS Last Admin: 05/11/20 21:46 Dose: 1 spray Documented by: Warfarin Sodium (Jantoven 2 Mg Tablet) 1.5 mg PO DAILY@1700 [facility] Medical Necessity - Tobacco Use Smoking Status: Former smoker Tobacco Use: Cigarettes Assessment/Plan All Active Problems (Last Reviewed 05/04/20 @ 14:[address] Daphne Patel, DO) CHF exacerbation (Acute) Non-ST elevation myocardial infarction (NSTEMI) (Acute) CHF (congestive heart failure) (Acute) Cardiomyopathy (Acute) COVID-19 (Acute) Acute respiratory failure (Acute) NSTEMI (non-ST elevated myocardial infarction) (Resolved) RECOMMENDATIONS: 1. Continue BiPAP therapy and wean FiO2 to maintain oxygen saturations at or above 90%. BiPAP breaks as tolerated while not sleeping 2. Continue diuresis as tolerated by hemodynamics and renal function. Additional dose of Lasix tonight 3. Continue Decadron. Completed remdesivir. 4. Okay to continue with Coumadin 5. Increase activity as tolerated 6. Consider LTAC evaluation for disposition IMPRESSIONS: 1. Acute on chronic hypoxemic respiratory failure secondary to combined decompensated heart failure and COVID-19 pneumonia The patient will be continued on BiPAP therapy as tolerated with goals to wean her FiO2 to maintain oxygen saturations at or above 90%. Resume Lasix as tolerated by hemodynamics and renal function. Remdesivir and Decadron has been completed. Anticipate slow recovery given patient's relatively sedentary behavior. Will challenge with an additional dose of Lasix this evening. Consider LTAC evaluation. 2. Acute on chronic kidney disease Continue attempts at gentle diuresis as tolerated by renal function. Lasix scheduled daily appears to be tolerating. Patient is achieving a negative fluid balance on a daily basis with current regimen. Patient tolerated the additional dose of Lasix yesterday. Patient did have some provement of BUN and creatinine overnight. We will give additional dose of Lasix this evening. Okay to continue with daily dose with evening dose as labs allow. Weight much improved compared to previous. Recheck chemistries tomorrow 3. Coagulopathy The patient presented to the hospital with a supratherapeutic INR. Okay to reinitiate Coumadin therapy from my perspective. No bleeding complications have been noted despite elevated INR on presentation. 4. History of ischemic cardiomyopathy/hypertension/hyperlipidemia/peripheral vascular disease/diabetes mellitus/questionable COPD/obesity Complicates care, management, recovery and prognosis. Continue home medications as tolerated. Increase [facility] Inpatient E&M: 27715 [facility] Hosp L3
[2020-05-14] MEDS: Allopurinol 100 MG Tablet PO ×2 (08:46→19:37)
[2020-05-14] MEDS: Sertraline 100 MG Tablet PO (08:46)
[2020-05-14] MEDS: Gabapentin 300 MG Capsule PO ×2 (08:47→19:37)
[2020-05-14] MEDS: Pantoprazole Sodium 40 MG Tablet PO (08:47)
[2020-05-14] MEDS: Carvedilol 6.25 MG Tablet PO ×2 (08:47→19:37)
[2020-05-14] MEDS: Clopidogrel Bisulfate 75 MG Tablet PO (08:47)
[2020-05-14] MEDS: Furosemide 40 MG/4 ML Vial IV ×2 (08:47→16:08)
[2020-05-14] MEDS: Nystatin Powder 15gm Bottle 1 APPLIC TOPICAL ×2 (08:48→19:37)
[2020-05-14] MEDS: Insulin Lispro 100 UNIT/ML INSULN.PEN SC ×3 (11:41→20:23)
[2020-05-14 14:16] LABS: Bedside Glucose 163 mg/dL (70-110)
--- NOTE | 2020-05-14 14:49 | PCM.PROGNOTE ---
Patient Problems: Active and Suspected Problems (Last Reviewed 05/04/20 @ 14:[address] Daphne Patel, DO) CHF exacerbation (Acute) Non-ST elevation myocardial infarction (NSTEMI) (Acute) Cardiomyopathy (Acute) COVID-19 (Acute) Acute respiratory failure (Acute) Subjective: Patient was seen and examined today, I impressed upon her the need for her to get up in a chair today rather than lying in bed, nursing attempted to get her up and she refused to cooperate with nursing and get into a chair. I warned the patient that she would wind up in a retirement if she did not become more mobile and get up in a chair. Patient is still on high flow nasal cannula oxygen. INR was elevated at 3.9 today, I decided to decrease her Coumadin. Blood sugars appear to be improved. Objective: General: Alert, Oriented x3, Cooperative, No apparent distress, Well developed, Well nourished HEENT: Atraumatic, PERRLA, EOMI, Normocephalic Oral: Moist Mucosa Neck: Supple, No JVD, Trachea Midline, Thyroid Normal Size and Texture Lungs: Clear to auscultation, Normal air movement, No rhonchi, No wheeze, No rales Cardiovascular: Regular rate, Regular Rhythm, Normal S1, Normal S2, No murmurs, PMI Normal, No rub noted, No Gallop Abdomen: Bowel Sounds Present, Soft, Non Tender, Non-Distended Extremities: No clubbing, No cyanosis, No edema, Capillary Refill Less than 3 Seconds Skin: No rashes, No breakdown Musculoskeletal: No Tenderness to Palpation of Joints or Extremities Neurological: Cranial nerves II-XII grossly intact, Neuro grossly intact, Sensory exam intact to light touch and pain Psych/Mental Status: Normal Affect, Appropriate, Alert and oriented to time, place, person, mood and affect - Physical Exam Vitals/I&O's: Vital Signs Temp Pulse Resp BP Pulse Ox 97 F L 62 18 128/45 H 94 05/14/20 10:35 05/14/20 10:35 05/14/20 10:35 05/14/20 10:35 05/14/20 10:35 Oxygen Flow Rate (L/min) 15 Oxygen Delivery Method Nasal Cannula Weight: 82.2 kg Body Mass Index (BMI) 30.5 Intake and Output for Last 24 Hours 05/12/20 05/13/20 05/14/20 23:59 23:59 23:59 Intake Total 1030 / 1030 900 / 1140 880 / 880 Output Total 1875 / 1875 1125 / 1625 1475 / 1475 Balance -845 / -845 -225 / -485 -595 / -595 Laboratory Results 05/13/20 11:25: POC Glucose 344 H 05/13/20 16:16: POC Glucose 394 H 05/13/20 22:34: POC Glucose 237 H 05/14/20 06:06: PT 38.1 H, INR 3.9 H* 05/14/20 06:06: Sodium 128 L, Potassium 3.8, Chloride 93 L, Carbon Dioxide 25.0, Anion Gap 10, BUN 79 H, Creatinine 1.47 H, Estim Creat Clear Calc 32.86, Est GFR (MDRD) Af Amer 45 L, Est GFR (MDRD) Non-Af 37 L, BUN/Creatinine Ratio 53.7 H, Glucose 124 H, Calcium 8.5 05/14/20 06:56: POC Glucose 122 H 05/14/20 11:40: POC Glucose 163 H Current Medications Acetaminophen (Acetaminophen 325 Mg Tablet) 650 mg PO Q6H PRN PRN PRN Reason: Pain Score 1-10/Temp > 100.7 F Last Admin: 05/09/20 00:59 Dose: 650 mg Documented by: Al Hydroxide/Mg Hydroxide (Mag Hydrox/Al Hydrox/Simeth 30 Ml Udc) 30 ml PO Q6H PRN PRN PRN Reason: Gastric Burning Albuterol Sulfate (Albuterol Sulfate 8 Gm Inhaler (60 Puffs)) 1 puff INHALATION Q4H PRN PRN PRN Reason: SOB/Wheezing Last Admin: 05/06/20 05:19 Dose: 1 puff Documented by: Allopurinol (Allopurinol 100 Mg Tablet) 100 mg PO BID [facility] Last Admin: 05/14/20 08:46 Dose: 100 mg Documented by: Amlodipine Besylate (Amlodipine 5 Mg Tablet) 5 mg PO QHS [facility] Last Admin: 05/13/20 22:50 Dose: 5 mg Documented by: Carvedilol (Carvedilol 6.25 Mg Tablet) 6.25 mg PO BID [facility] Last Admin: 05/14/20 08:47 Dose: 6.25 mg Documented by: Clopidogrel Bisulfate (Clopidogrel Bisulfate 75 Mg Tablet) 75 mg PO DAILY [facility] Last Admin: 05/14/20 08:47 Dose: 75 mg Documented by: Docusate Sodium (Docusate Sodium 100 Mg Capsule) 100 mg PO BID PRN PRN PRN Reason: Constipation Last Admin: 05/09/20 00:59 Dose: 100 mg Documented by: Furosemide (Furosemide 40 Mg/4 Ml Vial) 40 mg IV DAILY [facility] Last Admin: 05/14/20 08:47 Dose: 40 mg Documented by: Furosemide (Furosemide 40 Mg/4 Ml Vial) 40 mg IV X1 ONE Stop: 05/14/20 18:01 Gabapentin (Gabapentin 300 Mg Capsule) 300 mg PO BID [facility] Last Admin: 05/14/20 08:47 Dose: 300 mg Documented by: Guaifenesin (Guaifenesin 10 Ml Udc (200mg/10ml)) 10 ml PO Q4H PRN PRN PRN Reason: COUGH Sodium Chloride () 250 mls @ 15 mls/hr IV .[id number] PRN PRN Reason: Saline Flush Last Infusion: 05/06/20 06:05 Dose: 0 mls/hr Documented by: Sodium Chloride () 250 mls @ 15 mls/hr IV .[id number] PRN PRN Reason: Additional IVPB Infusion Insulin Glargine (Insulin Glargine 100 Units/Ml Pen) 25 units SC BID [facility] Last Admin: 05/14/20 08:47 Dose: 25 units Documented by: Insulin Human Lispro (Insulin Lispro 100 Unit/Ml Insuln.Pen) 0 unit SC ACHS [facility]; Protocol Last Admin: 05/14/20 11:41 Dose: 3 u Documented by: Melatonin (Melatonin 3 Mg Tablet) 3 mg PO QHS PRN PRN PRN Reason: INSOMNIA Last Admin: 05/14/20 00:46 Dose: 3 mg Documented by: Miscellaneous Information (Inhaler, Assist Devices 1 Each Spacer) 1 each INHALATION Q4HWA PRN PRN Reason: INHALER USE Morphine Sulfate (Morphine 2 Mg/Ml Syringe) 2 mg IV Q3H PRN PRN PRN Reason: Pain Score 6-10 Nystatin (Nystatin Powder 15gm Bottle) 1 applic TOPICAL BID [facility]; Protocol Last Admin: 05/14/20 08:48 Dose: 1 applicatio Documented by: Ondansetron HCl (Ondansetron 4 Mg/2 Ml Vial) 4 mg IV Q8H PRN PRN PRN Reason: NAUSEA/VOMITING Last Admin: 05/09/20 12:41 Dose: 4 mg Documented by: Pantoprazole Sodium (Pantoprazole Sodium 40 Mg Tablet) 40 mg PO DAILY [facility] Last Admin: 05/14/20 08:47 Dose: 40 mg Documented by: Pravastatin Sodium (Pravastatin 80 Mg Tablet) 80 mg PO QHS [facility] Last Admin: 05/13/20 22:50 Dose: 80 mg Documented by: Sertraline HCl (Sertraline 100 Mg Tablet) 100 mg PO DAILY [facility] Last Admin: 05/14/20 08:46 Dose: 100 mg Documented by: Sodium Chloride (0.9% Saline Lock 10 Ml Syringe) 10 - 40 ml IV UD PRN PRN Reason: SALINE FLUSH Last Admin: 05/10/20 16:57 Dose: 10 ml Documented by: Sodium Chloride (Sodium Chloride 0.65% 1 [place].Btl) 1 spray NASAL TID PRN PRN PRN Reason: NASAL DRYNESS Last Admin: 05/11/20 21:46 Dose: 1 spray Documented by: Warfarin Sodium 0.5 mg/ (Warfarin Sodium 1 mg) 1.5 mg PO DAILY@1700 [facility] Medical Necessity - Tobacco Use Smoking Status: Former smoker Tobacco Use: Cigarettes Assessment/Plan All Active Problems (Last Reviewed 05/04/20 @ 14:[address] Daphne Patel, DO) CHF exacerbation (Acute) Non-ST elevation myocardial infarction (NSTEMI) (Acute) CHF (congestive heart failure) (Acute) Cardiomyopathy (Acute) COVID-19 (Acute) Acute respiratory failure (Acute) NSTEMI (non-ST elevated myocardial infarction) (Resolved) #1 acute on chronic hypoxic respiratory failure secondary to COVID-19 pneumonia and underlying acute on chronic systolic congestive heart failure-patient finished dexamethasone , she finished her remdesivir. Pulmonary medicine is participating in her care, she will need to go to an LTAC-arrangements may be able to be made this week since the patient has been here over 10 days. #2 acute on chronic systolic congestive heart failure-patient remains on Lasix at this time #3 chronic kidney disease stage III-BMP will be monitored #4 coagulopathy secondary to Coumadin usage-patient's INR today is 3.9, recheck INR tomorrow, Coumadin dose was decreased to 1-1/2 mg daily. #5 atherosclerotic heart disease #6 ischemic cardiomyopathy #7 type 2 diabetes-continue to monitor blood sugars #8 COVID-19 pneumonia #9 hyponatremia-patient's sodium was 128 today, she will get another BMP tomorrow #10 generalized debility-patient's unwillingness to get out of bed and at least sit in a chair will complicate her recovery undoubtedly. Inpatient E&M: [id number] Subs Hosp L2
[2020-05-14 17:06] LABS: Bedside Glucose 160 mg/dL (70-110)
[2020-05-14] MEDS: amLODIPine 5 MG Tablet PO (19:37)
[2020-05-14] MEDS: Pravastatin 80 MG Tablet PO (19:37)
[2020-05-14 22:10] LABS: Bedside Glucose 264 mg/dL (70-110)
[2020-05-15] VITALS (13 sets, daily range): BP systolic 110–142; BP diastolic 38–64; PULSE 59–69; RESP 12–26; TEMP 36.2–36.9; O2SAT 92–96
[2020-05-15 05:46] LABS: Prothrombin Time (Protime)PT. 34.7 SECONDS (11.7-14.9)
[2020-05-15 05:49] LABS: International Normalized Ratio 3.5
[2020-05-15 06:02] LABS: Anion Gap 13 (5-15); BUN 76 mg/dL (7-18); BUN/Creat Ratio 55.5 RATIO (10-20); Calcium,Total 7.6 mg/dL (8.5-10.1); Chloride 94 mmol/L (98-107); Creatinine, Serum 1.37 mg/dL (0.55-1.02); EST Glomerular Filtration Rate 40 mL/min (>60); Est Glom Filt Rate - Afr Amer 49 mL/min (>60); Estimated Creatinine Clearance 35.26 ml/min; Glucose 71 mg/dL (74-106); Potassium 3.9 mmol/L (3.5-5.1); Sodium Level 130 mmol/L (136-145)
[2020-05-15 07:16] LABS: Bedside Glucose 86 mg/dL (70-110)
--- NOTE | 2020-05-15 07:42 | PCM.PN.HOSP ---
Patient Problems: Active and Suspected Problems (Last Reviewed 05/04/20 @ 14:[address] Daphne Patel DO) CHF exacerbation (Acute) Non-ST elevation myocardial infarction (NSTEMI) (Acute) Cardiomyopathy (Acute) COVID-19 (Acute) Acute respiratory failure (Acute) Reason for Visit: Acute Hypoxic respiratory failure Subjective: Patient is a 70-year-old lady admitted with progressive shortness of breath diagnosed with acute COVID-19 pneumonia Objective: GENERAL: cooperative HEENT: Atraumatic; EYES; Anicteric, Normal Conjunctiva NECK; supple, normal thyroid, RESPIRATORY: Diminished to auscultation CARDIOVASCULAR: Regular S1 S2, GI: soft, normoactive bowel sounds, : No Renal angle tenderness; EXTREMITIES: No edema, no clubbing, MUSCULOSKELETAL: no muscle waisting NEURO: Awake; no lateralizing signs. SKIN: No Rash PSYCH; Flat affect Vitals/I&O's: Vital Signs Temp Pulse Resp BP Pulse Ox 97.2 F L 59 L 16 139/44 H 95 05/15/20 04:17 05/15/20 04:17 05/15/20 04:17 05/15/20 04:17 05/15/20 04:17 Oxygen Flow Rate (L/min) 15 Oxygen Delivery Method Bi-pap Weight: 82 kg Body Mass Index (BMI) 30.5 Intake and Output for Last 24 Hours 05/13/20 05/14/20 05/15/20 23:59 23:59 23:59 Intake Total 900 / 1140 1480 / 1720 480 / 480 Output Total 1125 / 1625 1925 / 2725 1100 / 1100 Balance -225 / -485 -445 / -1005 -620 / -620 Laboratory Results 05/14/20 11:40: POC Glucose 163 H 05/14/20 16:06: POC Glucose 160 H 05/14/20 20:21: POC Glucose 264 H 05/15/20 05:10: PT 34.7 H, INR 3.5 H* 05/15/20 05:10: Sodium 130 L, Potassium 3.9, Chloride 94 L, Carbon Dioxide 23.0, Anion Gap 13, BUN 76 H, Creatinine 1.37 H, Estim Creat Clear Calc 35.26, Est GFR (MDRD) Af Amer 49 L, Est GFR (MDRD) Non-Af 40 L, BUN/Creatinine Ratio 55.5 H, Glucose 71 L, Calcium 7.6 L 05/15/20 06:37: POC Glucose 86 Current Medications Acetaminophen (Acetaminophen 325 Mg Tablet) 650 mg PO Q6H PRN PRN PRN Reason: Pain Score 1-10/Temp > 100.7 F Last Admin: 05/09/20 00:59 Dose: 650 mg Documented by: Al Hydroxide/Mg Hydroxide (Mag Hydrox/Al Hydrox/Simeth 30 Ml Udc) 30 ml PO Q6H PRN PRN PRN Reason: Gastric Burning Albuterol Sulfate (Albuterol Sulfate 8 Gm Inhaler (60 Puffs)) 1 puff INHALATION Q4H PRN PRN PRN Reason: SOB/Wheezing Last Admin: 05/06/20 05:19 Dose: 1 puff Documented by: Allopurinol (Allopurinol 100 Mg Tablet) 100 mg PO BID [facility] Last Admin: 05/14/20 19:37 Dose: 100 mg Documented by: Amlodipine Besylate (Amlodipine 5 Mg Tablet) 5 mg PO QHS [facility] Last Admin: 05/14/20 19:37 Dose: 5 mg Documented by: Carvedilol (Carvedilol 6.25 Mg Tablet) 6.25 mg PO BID [facility] Last Admin: 05/14/20 19:37 Dose: 6.25 mg Documented by: Clopidogrel Bisulfate (Clopidogrel Bisulfate 75 Mg Tablet) 75 mg PO DAILY [facility] Last Admin: 05/14/20 08:47 Dose: 75 mg Documented by: Docusate Sodium (Docusate Sodium 100 Mg Capsule) 100 mg PO BID PRN PRN PRN Reason: Constipation Last Admin: 05/09/20 00:59 Dose: 100 mg Documented by: Furosemide (Furosemide 40 Mg/4 Ml Vial) 40 mg IV DAILY [facility] Last Admin: 05/14/20 08:47 Dose: 40 mg Documented by: Gabapentin (Gabapentin 300 Mg Capsule) 300 mg PO BID [facility] Last Admin: 05/14/20 19:37 Dose: 300 mg Documented by: Guaifenesin (Guaifenesin 10 Ml Udc (200mg/10ml)) 10 ml PO Q4H PRN PRN PRN Reason: COUGH Sodium Chloride () 250 mls @ 15 mls/hr IV .[id number] PRN PRN Reason: Saline Flush Last Infusion: 05/06/20 06:05 Dose: 0 mls/hr Documented by: Sodium Chloride () 250 mls @ 15 mls/hr IV .[id number] PRN PRN Reason: Additional IVPB Infusion Insulin Glargine (Insulin Glargine 100 Units/Ml Pen) 25 units SC BID [facility] Last Admin: 05/14/20 21:55 Dose: 25 units Documented by: Insulin Human Lispro (Insulin Lispro 100 Unit/Ml Insuln.Pen) 0 unit SC ACHS [facility]; Protocol Last Admin: 05/15/20 06:42 Dose: Not Given Documented by: Melatonin (Melatonin 3 Mg Tablet) 3 mg PO QHS PRN PRN PRN Reason: INSOMNIA Last Admin: 05/14/20 23:49 Dose: 3 mg Documented by: Miscellaneous Information (Inhaler, Assist Devices 1 Each Spacer) 1 each INHALATION Q4HWA PRN PRN Reason: INHALER USE Morphine Sulfate (Morphine 2 Mg/Ml Syringe) 2 mg IV Q3H PRN PRN PRN Reason: Pain Score 6-10 Nystatin (Nystatin Powder 15gm Bottle) 1 applic TOPICAL BID [facility]; Protocol Last Admin: 05/14/20 19:37 Dose: 1 applicatio Documented by: Ondansetron HCl (Ondansetron 4 Mg/2 Ml Vial) 4 mg IV Q8H PRN PRN PRN Reason: NAUSEA/VOMITING Last Admin: 05/09/20 12:41 Dose: 4 mg Documented by: Pantoprazole Sodium (Pantoprazole Sodium 40 Mg Tablet) 40 mg PO DAILY [facility] Last Admin: 05/14/20 08:47 Dose: 40 mg Documented by: Pravastatin Sodium (Pravastatin 80 Mg Tablet) 80 mg PO QHS [facility] Last Admin: 05/14/20 19:37 Dose: 80 mg Documented by: Sertraline HCl (Sertraline 100 Mg Tablet) 100 mg PO DAILY [facility] Last Admin: 05/14/20 08:46 Dose: 100 mg Documented by: Sodium Chloride (0.9% Saline Lock 10 Ml Syringe) 10 - 40 ml IV UD PRN PRN Reason: SALINE FLUSH Last Admin: 05/10/20 16:57 Dose: 10 ml Documented by: Sodium Chloride (Sodium Chloride 0.65% 1 [place].Btl) 1 spray NASAL TID PRN PRN PRN Reason: NASAL DRYNESS Last Admin: 05/11/20 21:46 Dose: 1 spray Documented by: Warfarin Sodium 0.5 mg/ (Warfarin Sodium 1 mg) 1.5 mg PO DAILY@1700 [facility] STR[facility]KE Vital Signs/Narrative: Vital Signs Temp Pulse Resp BP Pulse Ox 05/15/20 04:17 97.2 F L 59 L 16 139/44 H 95 Medical Necessity - Tobacco Use Smoking Status: Former smoker Tobacco Use: Cigarettes Assessment/Plan All Active Problems (Last Reviewed 05/04/20 @ 14:[address] Daphne Patel, DO) CHF exacerbation (Acute) Non-ST elevation myocardial infarction (NSTEMI) (Acute) CHF (congestive heart failure) (Acute) Cardiomyopathy (Acute) COVID-19 (Acute) Acute respiratory failure (Acute) NSTEMI (non-ST elevated myocardial infarction) (Resolved) Patient is a 70-year-old lady admitted with progressive shortness of breath diagnosed with acute COVID-19 pneumonia 1. Acute hypoxic respiratory failure due to combination of COVID-19 pneumonia as well as CHF 2. Acute COVID-19 pneumonia ?Patient finished a course of dexamethasone and remdesivir 3. Acute on chronic congestive heart failure with reduced ejection fraction -Patient is on Lasix 4. Coumadin induced coagulopathy ?Coumadin on hold monitoring INR 5. Chronic kidney disease stage III ?Kidney function at baseline 6. Coronary artery disease ?With previous history of non-STEMI 7. Ischemic cardiomyopathy ?With EF of 5% 8. Diabetes mellitus type II -patient's oral hypoglycemics held. -Placed on long acting insulin, Accu-Cheks a.c. and at bedtime and covered with sliding scale insulin 9. HypoNatremia ?Secondary to fluid overload status from patient CHF patient receiving diuresis with subsequent monitoring of electrolyte 10. Physical deconditioning - Requested for PT OT eval and social media assistant to assist with discharge planning 11. DVT prophylaxis -patient is on Coumadin Inpatient E&M: [id number] Subs Hosp L2
[2020-05-15] MEDS: Furosemide 40 MG/4 ML Vial IV (10:14)
[2020-05-15] MEDS: Gabapentin 300 MG Capsule PO ×2 (10:14→21:25)
[2020-05-15] MEDS: Carvedilol 6.25 MG Tablet PO ×2 (10:14→21:26)
[2020-05-15] MEDS: Sertraline 100 MG Tablet PO (10:15)
[2020-05-15] MEDS: Clopidogrel Bisulfate 75 MG Tablet PO (10:15)
[2020-05-15] MEDS: Allopurinol 100 MG Tablet PO ×2 (10:15→21:25)
[2020-05-15] MEDS: Pantoprazole Sodium 40 MG Tablet PO (10:15)
[2020-05-15] MEDS: Nystatin Powder 15gm Bottle 1 APPLIC TOPICAL ×2 (10:19→21:25)
[2020-05-15] MEDS: 0.9% Saline Lock 10 ML Syringe IV (10:20)
[2020-05-15 12:10] LABS: Bedside Glucose 178 mg/dL (70-110)
[2020-05-15] MEDS: Insulin Lispro 100 UNIT/ML INSULN.PEN SC ×3 (12:47→21:43)
[2020-05-15 17:46] LABS: Bedside Glucose 274 mg/dL (70-110)
[2020-05-15] MEDS: MELATONIN 3 MG TABLET PO (21:25)
[2020-05-15] MEDS: Pravastatin 80 MG Tablet PO (21:25)
[2020-05-15] MEDS: amLODIPine 5 MG Tablet PO (21:26)
[2020-05-15 22:46] LABS: Bedside Glucose 205 mg/dL (70-110)
[2020-05-16] VITALS (15 sets, daily range): BP systolic 119–129; BP diastolic 42–54; PULSE 63–74; RESP 12–25; TEMP 36.9–37.1; O2SAT 15–98
[2020-05-16 05:09] LABS: Hematocrit 35.9 % (37-47); Mean Corp Hgb Conc 33.4 g/dL (32-36); Mean Corpuscular Hgb 29.8 pg (27.0-32.0); Mean Corpuscular Volume 89.1 fL (81-99); Mean Platelet Vol. 11.2 fl (6.2-12.0); Platelet Count 236 K/mm3 (150-450); RBC Distribution Width SD 49.1 fl (35.1-43.9); Red Blood Count 4.03 M/mm3 (4.2-5.4); White Blood Count 14.1 K/mm3 (4.4-11.0)
[2020-05-16 05:19] LABS: International Normalized Ratio 2.8; Prothrombin Time (Protime)PT. 28.9 SECONDS (11.7-14.9)
[2020-05-16 05:23] LABS: Anion Gap 9 (5-15); BUN 71 mg/dL (7-18); BUN/Creat Ratio 49.7 RATIO (10-20); Calcium,Total 8.3 mg/dL (8.5-10.1); Chloride 93 mmol/L (98-107); Creatinine, Serum 1.43 mg/dL (0.55-1.02); EST Glomerular Filtration Rate 38 mL/min (>60); Est Glom Filt Rate - Afr Amer 47 mL/min (>60); Estimated Creatinine Clearance 33.78 ml/min; Glucose 92 mg/dL (74-106); Magnesium 1.9 mg/dL (1.6-2.6); Potassium 3.6 mmol/L (3.5-5.1); Sodium Level 128 mmol/L (136-145)
[2020-05-16 06:20] LABS: Bedside Glucose 107 mg/dL (70-110)
--- NOTE | 2020-05-16 07:16 | PN_ITS ---
Patient Problems: Active and Suspected Problems (Last Reviewed 05/04/20 @ 14:[address] Daphne Patel DO) CHF exacerbation (Acute) Non-ST elevation myocardial infarction (NSTEMI) (Acute) Cardiomyopathy (Acute) COVID-19 (Acute) Acute respiratory failure (Acute) Reason for Visit: Acute Hypoxic respiratory failure Subjective: Patient is a 70-year-old lady admitted with progressive shortness of breath diagnosed with acute COVID-19 pneumonia ?05/16/2020; patient seen still requiring high flow oxygen. Objective: GENERAL: cooperative HEENT: Atraumatic; EYES; Anicteric, Normal Conjunctiva NECK; supple, normal thyroid, RESPIRATORY: Diminished to auscultation CARDIOVASCULAR: Regular S1 S2, GI: soft, normoactive bowel sounds, : No Renal angle tenderness; EXTREMITIES: No edema, no clubbing, MUSCULOSKELETAL: no muscle waisting NEURO: Awake; no lateralizing signs. SKIN: No Rash PSYCH; Flat affect Vitals/I&O's: Vital Signs Temp Pulse Resp BP Pulse Ox 98.4 F 63 23 H 129/54 H 92 05/16/20 03:57 05/16/20 05:18 05/16/20 05:18 05/16/20 03:57 05/16/20 05:18 Oxygen Flow Rate (L/min) 15 Oxygen Delivery Method Bi-pap Weight: 83.2 kg Body Mass Index (BMI) 30.5 Intake and Output for Last 24 Hours 05/14/20 05/15/20 05/16/20 23:59 23:59 23:59 Intake Total 1480 / 1720 480 / 480 Output Total 1925 / 2725 1999 400 / 400 Balance -445 / -1005 -1520 / -1520 -400 / -400 Laboratory Results 05/15/20 06:37: POC Glucose 86 05/15/20 11:41: POC Glucose 178 H 05/15/20 16:56: POC Glucose 274 H 05/15/20 21:42: POC Glucose 205 H 05/16/20 04:30: WBC 14.1 H, RBC 4.03 L, Hgb 12.0, Hct 35.9 L, MCV 89.1, MCH 29.8, MCHC 33.4, RDW Std Deviation 49.1 H, RDW Coeff of Geovanna 15.0 H, Plt Count 236, MPV 11.2 05/16/20 04:30: PT 28.9 H, INR 2.8 05/16/20 04:30: Sodium 128 L, Potassium 3.6, Chloride 93 L, Carbon Dioxide 26.0, Anion Gap 9, BUN 71 H, Creatinine 1.43 H, Estim Creat Clear Calc 33.78, Est GFR (MDRD) Af Amer 47 L, Est GFR (MDRD) Non-Af 38 L, BUN/Creatinine Ratio 49.7 H, Glucose 92, Calcium 8.3 L, Magnesium 1.9 05/16/20 06:07: POC Glucose 107 Current Medications Acetaminophen (Acetaminophen 325 Mg Tablet) 650 mg PO Q6H PRN PRN PRN Reason: Pain Score 1-10/Temp > 100.7 F Last Admin: 05/09/20 00:59 Dose: 650 mg Documented by: Al Hydroxide/Mg Hydroxide (Mag Hydrox/Al Hydrox/Simeth 30 Ml Udc) 30 ml PO Q6H PRN PRN PRN Reason: Gastric Burning Albuterol Sulfate (Albuterol Sulfate 8 Gm Inhaler (60 Puffs)) 1 puff INHALATION Q4H PRN PRN PRN Reason: SOB/Wheezing Last Admin: 05/06/20 05:19 Dose: 1 puff Documented by: Allopurinol (Allopurinol 100 Mg Tablet) 100 mg PO BID [facility] Last Admin: 05/15/20 21:25 Dose: 100 mg Documented by: Amlodipine Besylate (Amlodipine 5 Mg Tablet) 5 mg PO QHS [facility] Last Admin: 05/15/20 21:26 Dose: 5 mg Documented by: Carvedilol (Carvedilol 6.25 Mg Tablet) 6.25 mg PO BID [facility] Last Admin: 05/15/20 21:26 Dose: 6.25 mg Documented by: Clopidogrel Bisulfate (Clopidogrel Bisulfate 75 Mg Tablet) 75 mg PO DAILY [facility] Last Admin: 05/15/20 10:15 Dose: 75 mg Documented by: Docusate Sodium (Docusate Sodium 100 Mg Capsule) 100 mg PO BID PRN PRN PRN Reason: Constipation Last Admin: 05/09/20 00:59 Dose: 100 mg Documented by: Furosemide (Furosemide 40 Mg/4 Ml Vial) 40 mg IV DAILY [facility] Last Admin: 05/15/20 10:14 Dose: 40 mg Documented by: Gabapentin (Gabapentin 300 Mg Capsule) 300 mg PO BID [facility] Last Admin: 05/15/20 21:25 Dose: 300 mg Documented by: Guaifenesin (Guaifenesin 10 Ml Udc (200mg/10ml)) 10 ml PO Q4H PRN PRN PRN Reason: COUGH Sodium Chloride () 250 mls @ 15 mls/hr IV .[id number] PRN PRN Reason: Saline Flush Last Infusion: 05/06/20 06:05 Dose: 0 mls/hr Documented by: Sodium Chloride () 250 mls @ 15 mls/hr IV .[id number] PRN PRN Reason: Additional IVPB Infusion Insulin Glargine (Insulin Glargine 100 Units/Ml Pen) 25 units SC BID [facility] Last Admin: 05/15/20 21:44 Dose: 25 units Documented by: Insulin Human Lispro (Insulin Lispro 100 Unit/Ml Insuln.Pen) [address] [facility]; Protocol Last Admin: 05/16/20 06:28 Dose: Not Given Documented by: Melatonin (Melatonin 3 Mg Tablet) 3 mg PO QHS PRN PRN PRN Reason: INSOMNIA Last Admin: 05/15/20 21:25 Dose: 3 mg Documented by: Miscellaneous Information (Inhaler, Assist Devices 1 Each Spacer) 1 each INHALATION Q4HWA PRN PRN Reason: INHALER USE Morphine Sulfate (Morphine 2 Mg/Ml Syringe) 2 mg IV Q3H PRN PRN PRN Reason: Pain Score 6-10 Nystatin (Nystatin Powder 15gm Bottle) 1 applic TOPICAL BID [facility]; Protocol Last Admin: 05/15/20 21:25 Dose: 1 applicatio Documented by: Ondansetron HCl (Ondansetron 4 Mg/2 Ml Vial) 4 mg IV Q8H PRN PRN PRN Reason: NAUSEA/VOMITING Last Admin: 05/09/20 12:41 Dose: 4 mg Documented by: Pantoprazole Sodium (Pantoprazole Sodium 40 Mg Tablet) 40 mg PO DAILY [facility] Last Admin: 05/15/20 10:15 Dose: 40 mg Documented by: Pravastatin Sodium (Pravastatin 80 Mg Tablet) 80 mg PO QHS [facility] Last Admin: 05/15/20 21:25 Dose: 80 mg Documented by: Sertraline HCl (Sertraline 100 Mg Tablet) 100 mg PO DAILY [facility] Last Admin: 05/15/20 10:15 Dose: 100 mg Documented by: Sodium Chloride (0.9% Saline Lock 10 Ml Syringe) 10 - 40 ml IV UD PRN PRN Reason: SALINE FLUSH Last Admin: 05/15/20 10:20 Dose: 10 ml Documented by: Sodium Chloride (Sodium Chloride 0.65% 1 [place].Btl) 1 spray NASAL TID PRN PRN PRN Reason: NASAL DRYNESS Last Admin: 05/11/20 21:46 Dose: 1 spray Documented by: Warfarin Sodium (Warfarin 1 Mg Tablet) 1 mg PO DAILY@1700 [facility] STROKE Vital Signs/Narrative: Vital Signs Temp Pulse Resp BP Pulse Ox 05/16/20 05:18 63 23 H 92 05/16/20 04:02 63 05/16/20 03:57 98.4 F 66 20 H 129/54 H 93 05/16/20 03:52 65 23 H 92 Medical Necessity - Tobacco Use Smoking Status: Former smoker Tobacco Use: Cigarettes Assessment/Plan All Active Problems (Last Reviewed 05/04/20 @ 14:[address] Daphne Patel, DO) CHF exacerbation (Acute) Non-ST elevation myocardial infarction (NSTEMI) (Acute) CHF (congestive heart failure) (Acute) Cardiomyopathy (Acute) COVID-19 (Acute) Acute respiratory failure (Acute) NSTEMI (non-ST elevated myocardial infarction) (Resolved) Patient is a 70-year-old lady admitted with progressive shortness of breath diagnosed with acute COVID-19 pneumonia 1. Acute hypoxic respiratory failure due to combination of COVID-19 pneumonia as well as CHF - ?05/16/2020; patient seen still requiring high flow oxygen. 2. Acute COVID-19 pneumonia ?Patient finished a course of dexamethasone and remdesivir 3. Acute on chronic congestive heart failure with reduced ejection fraction -Patient is on Lasix 4. Coumadin induced coagulopathy ?Coumadin on hold monitoring INR 5. Chronic kidney disease stage III ?Kidney function at baseline 6. Coronary artery disease ?With previous history of non-STEMI 7. Ischemic cardiomyopathy ?With EF of 5% 8. Diabetes mellitus type II -patient's oral hypoglycemics held. -Placed on long acting insulin, Accu-Cheks a.c. and at bedtime and covered with sliding scale insulin 9. Hyponatremia ?Secondary to fluid overload status from patient CHF patient receiving diuresis with subsequent monitoring of electrolyte 10. Physical deconditioning - Requested for PT OT eval and social media project manager to assist with discharge planning 11. DVT prophylaxis -patient is on Coumadin Inpatient E&M: 33904 Subs Hosp L2
[2020-05-16] MEDS: Sertraline 100 MG Tablet PO (09:18)
[2020-05-16] MEDS: Clopidogrel Bisulfate 75 MG Tablet PO (09:18)
[2020-05-16] MEDS: Carvedilol 6.25 MG Tablet PO ×2 (09:18→20:26)
[2020-05-16] MEDS: Gabapentin 300 MG Capsule PO ×2 (09:18→20:25)
[2020-05-16] MEDS: Allopurinol 100 MG Tablet PO ×2 (09:18→20:25)
[2020-05-16] MEDS: Furosemide 40 MG/4 ML Vial IV (09:18)
[2020-05-16] MEDS: Pantoprazole Sodium 40 MG Tablet PO (09:18)
[2020-05-16] MEDS: Nystatin Powder 15gm Bottle 1 APPLIC TOPICAL ×2 (09:19→20:27)
[2020-05-16] MEDS: 0.9% Saline Lock 10 ML Syringe IV ×2 (09:21→10:40)
[2020-05-16] MEDS: Ondansetron 4 MG/2 ML Vial IV (10:37)
[2020-05-16] MEDS: Insulin Lispro 100 UNIT/ML INSULN.PEN SC ×3 (12:46→20:27)
[2020-05-16 12:55] LABS: Bedside Glucose 257 mg/dL (70-110)
--- NOTE | 2020-05-16 14:00 | CHAPLAIN ---
Type of Pastoral Visit ___ Initial Visit ___ Follow-up Visit ___ On-call Visit ___ General Patient Visit ___ Spiritual Assessment ___ Family Conference ___ Bereavement ___ Rapid Response ___ Code Blue _x__ Other (describe below) Pastoral Care Referral From ___ Patient ___ Family ___ Nurse ___ Physician ___ Employment Case Manager ___ Vocational Case Manager _x__ Other (describe below) Sacrament/Intervention _x__ Active listening ___ Anointing ___ Holiness ___ Bereavement ___ Communion ___ Isabela exploration ___ ___ Life review _x__ Prayer ___ Reconciliation ___ Sacrament of Sick ___ Supportive presence ___ Wedding ___ Other (describe below) Pastoral Comments patient answers phone call made into isolation room; pt states that I am trying to get better and I think I am a little bit better; pt states that she has been praying for herself and this deputy sheriff building guard then offers to pray for her; pt welcomes prayer support; conversation kept brief; no other concerns noted by pt
--- NOTE | 2020-05-16 14:06 | PN_ITS ---
Patient Problems: Active and Suspected Problems (Last Reviewed 05/04/20 @ 14:[address] Daphne Patel, DO) CHF exacerbation (Acute) Non-ST elevation myocardial infarction (NSTEMI) (Acute) Cardiomyopathy (Acute) COVID-19 (Acute) Acute respiratory failure (Acute) Subjective: The patient was seen and examined at the bedside this morning. Events from the last 24 hours have been reviewed. The patient is currently afebrile, hemodynamically stable and maintaining appropriate oxygen saturations on BiPAP with an FiO2 requirement of 70%. The patient does have a nonproductive cough. Creatinine is stable this morning at 1.43. Objective: The patient's most recent lab work, culture data and imaging studies have all been personally reviewed. Surface echocardiogram from April 2020 revealed severe segmental systolic dysfunction with an ejection fraction of 25%. Right ventricular systolic pressure was estimated to be 35 mmHg. Coronavirus PCR was positive on May 04. - Physical Exam Vitals/I&O's: Vital Signs Temp Pulse Resp BP Pulse Ox 98.4 F 74 18 124/51 H 90 05/16/20 09:32 05/16/20 12:38 05/16/20 09:32 05/16/20 09:32 05/16/20 11:29 Oxygen Flow Rate (L/min) 15 Oxygen Delivery Method Nasal Cannula Weight: 183 lb 6.793 oz Body Mass Index (BMI) 30.5 Intake and Output for Last 24 Hours 05/14/20 05/15/20 05/16/20 23:59 23:59 23:59 Intake Total 1480 / 1720 480 / 480 Output Total 1925 / 2725 1999 400 / 400 Balance -445 / -1005 -1520 / -1520 -400 / -400 General: Alert, Cooperative, No apparent distress, - - BiPAP remains in place HEENT: Atraumatic, PERRLA, Normocephalic Oral: No Gingival or Mucosal Lesions/ Ulcerations, Dry Mucosa Neck: Supple, No Nodes, Trachea Midline Lungs: No rhonchi, No wheeze, No rales, Diminished Cardiovascular: Regular rate, Regular Rhythm Abdomen: Bowel Sounds Present, Soft, Non Tender, Obese Extremities: No clubbing, No cyanosis, Edema Skin: No breakdown Musculoskeletal: No Tenderness to Palpation of Joints or Extremities Lymphatic: No Cervical, Supraclavicular, or Inguinal Adenopathy Neurological: Neuro grossly intact Psych/Mental Status: Normal Affect, Appropriate Labs (Last 48 Hours) 05/14/20 05/14/20 05/14/20 11:40 16:06 20:21 WBC RBC Hgb Hct MCV MCH MCHC RDW Std Deviation RDW Coeff of Geovanna Plt Count MPV PT INR Sodium Potassium Chloride Carbon Dioxide Anion Gap BUN Creatinine Estim Creat Clear Calc Est GFR (MDRD) Af Amer Est GFR (MDRD) Non-Af BUN/Creatinine Ratio Glucose Calcium Magnesium POC Glucose 163 H 160 H 264 H 05/15/20 05/15/20 05/15/20 05:10 05:10 06:37 WBC RBC Hgb Hct MCV MCH MCHC RDW Std Deviation RDW Coeff of Geovanna Plt Count MPV PT 34.7 H INR 3.5 H* Sodium 130 L Potassium 3.9 Chloride 94 L Carbon Dioxide 23.0 Anion Gap 13 BUN 76 H Creatinine 1.37 H Estim Creat Clear Calc 35.26 Est GFR (MDRD) Af Amer 49 L Est GFR (MDRD) Non-Af 40 L BUN/Creatinine Ratio 55.5 H Glucose 71 L Calcium 7.6 L Magnesium POC Glucose 86 05/15/20 05/15/20 05/15/20 11:41 16:56 21:42 WBC RBC Hgb Hct MCV MCH MCHC RDW Std Deviation RDW Coeff of Geovanna Plt Count MPV PT INR Sodium Potassium Chloride Carbon Dioxide Anion Gap BUN Creatinine Estim Creat Clear Calc Est GFR (MDRD) Af Amer Est GFR (MDRD) Non-Af BUN/Creatinine Ratio Glucose Calcium Magnesium POC Glucose 178 H 274 H 205 H 05/16/20 05/16/20 05/16/20 04:30 04:30 04:30 WBC 14.1 H RBC 4.03 L Hgb 12.0 Hct 35.9 L MCV 89.1 MCH 29.8 MCHC 33.4 RDW Std Deviation 49.1 H RDW Coeff of Geovanna 15.0 H Plt Count 236 MPV 11.2 PT 28.9 H INR 2.8 Sodium 128 L Potassium 3.6 Chloride 93 L Carbon Dioxide 26.0 Anion Gap 9 BUN 71 H Creatinine 1.43 H Estim Creat Clear Calc 33.78 Est GFR (MDRD) Af Amer 47 L Est GFR (MDRD) Non-Af 38 L BUN/Creatinine Ratio 49.7 H Glucose 92 Calcium 8.3 L Magnesium 1.9 POC Glucose 05/16/20 05/16/20 06:07 12:45 WBC RBC Hgb Hct MCV MCH MCHC RDW Std Deviation RDW Coeff of Geovanna Plt Count MPV PT INR Sodium Potassium Chloride Carbon Dioxide Anion Gap BUN Creatinine Estim Creat Clear Calc Est GFR (MDRD) Af Amer Est GFR (MDRD) Non-Af BUN/Creatinine Ratio Glucose Calcium Magnesium POC Glucose 107 257 H Clinical Impression(s) from Imaging Studies Chest X-Ray 05/04/20 12:55 IMPRESSION: No change in acute or chronic interstitial lung disease. Interval resolution of left lower lobe pneumonia or atelectasis. Electronically Signed: Clifton Garza MD at 13:17 EST Tel , Service support , Chest X-Ray 05/05/20 05:55 IMPRESSION: Chronic interestitial changes. Additional airspace the likely representing pneumonia, similar in severity to the previous study . at 0507 Reported and signed by: Barry Alejo MD Electronically Signed: Barry Alejo MD at 5:06 EST Tel , Service support , Chest X-Ray 05/14/20 07:31 IMPRESSION: Unfavorable change. Bilateral reticular and groundglass opacities have progressed suggesting pneumonia (including viral causes) or pulmonary edema. 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 Electronically Signed: Wolf Ramirez MD ([place]) at 14:07 EST , Service support , Current Medications Acetaminophen (Acetaminophen 325 Mg Tablet) 650 mg PO Q6H PRN PRN PRN Reason: Pain Score 1-10/Temp > 100.7 F Last Admin: 05/09/20 00:59 Dose: 650 mg Documented by: Al Hydroxide/Mg Hydroxide (Mag Hydrox/Al Hydrox/Simeth 30 Ml Udc) 30 ml PO Q6H PRN PRN PRN Reason: Gastric Burning Albuterol Sulfate (Albuterol Sulfate 8 Gm Inhaler (60 Puffs)) 1 puff INHALATION Q4H PRN PRN PRN Reason: SOB/Wheezing Last Admin: 05/06/20 05:19 Dose: 1 puff Documented by: Allopurinol (Allopurinol 100 Mg Tablet) 100 mg PO BID [facility] Last Admin: 05/16/20 09:18 Dose: 100 mg Documented by: Amlodipine Besylate (Amlodipine 5 Mg Tablet) 5 mg PO QHS [facility] Last Admin: 05/15/20 21:26 Dose: 5 mg Documented by: Carvedilol (Carvedilol 6.25 Mg Tablet) 6.25 mg PO BID [facility] Last Admin: 05/16/20 09:18 Dose: 6.25 mg Documented by: Clopidogrel Bisulfate (Clopidogrel Bisulfate 75 Mg Tablet) 75 mg PO DAILY [facility] Last Admin: 05/16/20 09:18 Dose: 75 mg Documented by: Docusate Sodium (Docusate Sodium 100 Mg Capsule) 100 mg PO BID PRN PRN PRN Reason: Constipation Last Admin: 05/09/20 00:59 Dose: 100 mg Documented by: Furosemide (Furosemide 40 Mg/4 Ml Vial) 40 mg IV DAILY [facility] Last Admin: 05/16/20 09:18 Dose: 40 mg Documented by: Gabapentin (Gabapentin 300 Mg Capsule) 300 mg PO BID [facility] Last Admin: 05/16/20 09:18 Dose: 300 mg Documented by: Guaifenesin (Guaifenesin 10 Ml Udc (200mg/10ml)) 10 ml PO Q4H PRN PRN PRN Reason: COUGH Sodium Chloride () 250 mls @ 15 mls/hr IV .[id number] PRN PRN Reason: Saline Flush Last Infusion: 05/06/20 06:05 Dose: 0 mls/hr Documented by: Sodium Chloride () 250 mls @ 15 mls/hr IV .[id number] PRN PRN Reason: Additional IVPB Infusion Insulin Glargine (Insulin Glargine 100 Units/Ml Pen) 10 units SC BID [facility] Insulin Human Lispro (Insulin Lispro 100 Unit/Ml Insuln.Pen) 0 [facility]; Protocol Last Admin: 05/16/20 12:46 Dose: 6 u Documented by: Melatonin (Melatonin 3 Mg Tablet) 3 mg PO QHS PRN PRN PRN Reason: INSOMNIA Last Admin: 05/15/20 21:25 Dose: 3 mg Documented by: Miscellaneous Information (Inhaler, Assist Devices 1 Each Spacer) 1 each INHALATION Q4HWA PRN PRN Reason: INHALER USE Morphine Sulfate (Morphine 2 Mg/Ml Syringe) 2 mg IV Q3H PRN PRN PRN Reason: Pain Score 6-10 Nystatin (Nystatin Powder 15gm Bottle) 1 applic TOPICAL BID [facility]; Protocol Last Admin: 05/16/20 09:19 Dose: 1 applicatio Documented by: Ondansetron HCl (Ondansetron 4 Mg/2 Ml Vial) 4 mg IV Q8H PRN PRN PRN Reason: NAUSEA/VOMITING Last Admin: 05/16/20 10:37 Dose: 4 mg Documented by: Pantoprazole Sodium (Pantoprazole Sodium 40 Mg Tablet) 40 mg PO DAILY [facility] Last Admin: 05/16/20 09:18 Dose: 40 mg Documented by: Pravastatin Sodium (Pravastatin 80 Mg Tablet) 80 mg PO QHS [facility] Last Admin: 05/15/20 21:25 Dose: 80 mg Documented by: Sertraline HCl (Sertraline 100 Mg Tablet) 100 mg PO DAILY [facility] Last Admin: 05/16/20 09:18 Dose: 100 mg Documented by: Sodium Chloride (0.9% Saline Lock 10 Ml Syringe) 10 - 40 ml IV UD PRN PRN Reason: SALINE FLUSH Last Admin: 05/16/20 10:40 Dose: 10 ml Documented by: Sodium Chloride (Sodium Chloride 0.65% 1 [place].Btl) 1 spray NASAL TID PRN PRN PRN Reason: NASAL DRYNESS Last Admin: 05/11/20 21:46 Dose: 1 spray Documented by: Warfarin Sodium (Warfarin 1 Mg Tablet) 1 mg PO DAILY@1700 [facility] Medical Necessity - Tobacco Use Smoking Status: Former smoker Tobacco Use: Cigarettes Assessment/Plan All Active Problems (Last Reviewed 05/04/20 @ 14:[address] Daphne Patel DO) CHF exacerbation (Acute) Non-ST elevation myocardial infarction (NSTEMI) (Acute) CHF (congestive heart failure) (Acute) Cardiomyopathy (Acute) COVID-19 (Acute) Acute respiratory failure (Acute) NSTEMI (non-ST elevated myocardial infarction) (Resolved) RECOMMENDATIONS: 1. Continue BiPAP therapy and wean FiO2 to maintain oxygen saturations at or above 90%. 2. Continue diuresis as tolerated by hemodynamics and renal function. 3. Continue Coumadin. 4. Mobilize patient as tolerated. IMPRESSIONS: 1. Acute on chronic hypoxemic respiratory failure secondary to combined decompensated heart failure and COVID-19 pneumonia The patient will be continued on BiPAP therapy as tolerated with goals to wean her FiO2 to maintain oxygen saturations at or above 90%. The patient has already completed treatment courses of remdesivir and Decadron. She will remain on Lasix as tolerated by hemodynamics and renal function. 2. Acute on chronic kidney disease Improved. Continue attempts at gentle diuresis as tolerated by renal function. 3. History of ischemic cardiomyopathy/hypertension/hyperlipidemia/peripheral vascular disease/diabetes mellitus/questionable COPD/obesity Complicates care, management, recovery and prognosis. Continue home medications as tolerated. Continue Coumadin and check INR daily. This note was generated with [employer] dictation software. It may contain incorrect words, spelling, and punctuation that were not noted in checking the note before signing. Inpatient E&M: 77085 [facility] H[facility] L3
[2020-05-16 16:36] LABS: Bedside Glucose 255 mg/dL (70-110)
[2020-05-16] MEDS: Pravastatin 80 MG Tablet PO (20:26)
[2020-05-16] MEDS: amLODIPine 5 MG Tablet PO (20:29)
[2020-05-16 21:16] LABS: Bedside Glucose 210 mg/dL (70-110)
[2020-05-17] VITALS (21 sets, daily range): BP systolic 113–137; BP diastolic 39–74; PULSE 61–75; RESP 12–25; TEMP 36.3–37.3; O2SAT 80–99
[2020-05-17] MEDS: guaiFENesin 10 ML UDC (200MG/10ML) PO (05:48)
[2020-05-17 06:44] LABS: Hematocrit 35.2 % (37-47); Hemoglobin 11.2 g/dL (12.0-15.0); Mean Corp Hgb Conc 31.8 g/dL (32-36); Mean Corpuscular Hgb 28.9 pg (27.0-32.0); Mean Corpuscular Volume 90.7 fL (81-99); Mean Platelet Vol. 11.6 fl (6.2-12.0); Platelet Count 195 K/mm3 (150-450); RBC Distribution Width CV 15.2 % (11.6-14.6); RBC Distribution Width SD 50.4 fl (35.1-43.9); Red Blood Count 3.88 M/mm3 (4.2-5.4); White Blood Count 11.9 K/mm3 (4.4-11.0)
[2020-05-17 06:56] LABS: International Normalized Ratio 2.2; Prothrombin Time (Protime)PT. 23.9 SECONDS (11.7-14.9)
[2020-05-17 07:11] LABS: Anion Gap 7 (5-15); BUN 69 mg/dL (7-18); BUN/Creat Ratio 45.1 RATIO (10-20); Calcium,Total 7.7 mg/dL (8.5-10.1); Chloride 94 mmol/L (98-107); Creatinine, Serum 1.53 mg/dL (0.55-1.02); EST Glomerular Filtration Rate 36 mL/min (>60); Est Glom Filt Rate - Afr Amer 43 mL/min (>60); Estimated Creatinine Clearance 31.57 ml/min; Glucose 118 mg/dL (74-106); Magnesium 1.9 mg/dL (1.6-2.6); Potassium 3.9 mmol/L (3.5-5.1); Sodium Level 129 mmol/L (136-145)
--- NOTE | 2020-05-17 07:33 | PCM.PN.HOSP ---
Patient Problems: Active and Suspected Problems (Last Reviewed 05/04/20 @ 14:[address] Daphne Patel, DO) CHF exacerbation (Acute) Non-ST elevation myocardial infarction (NSTEMI) (Acute) Cardiomyopathy (Acute) COVID-19 (Acute) Acute respiratory failure (Acute) Reason for Visit: Acute Hypoxic respiratory failure Subjective: Patient is a 70-year-old lady admitted with progressive shortness of breath diagnosed with acute COVID-19 pneumonia ?05/16/2020; patient seen still requiring high flow oxygen. -05/17/20; patient still requires high flow oxygen however she has not been wearing the oxygen consistently. Plan is for patient to be assessed for home oxygen needs with possibility of patient being discharged home with home oxygen. She has been offered SNF versus LTAC patient declined. Objective: GENERAL: cooperative HEENT: Atraumatic; EYES; Anicteric, Normal Conjunctiva NECK; supple, normal thyroid, RESPIRATORY: Diminished to auscultation CARDIOVASCULAR: Regular S1 S2, GI: soft, normoactive bowel sounds, : No Renal angle tenderness; EXTREMITIES: No edema, no clubbing, MUSCULOSKELETAL: no muscle waisting NEURO: Awake; no lateralizing signs. SKIN: No Rash PSYCH; Flat affect Vitals/I&O's: Vital Signs Temp Pulse Resp BP Pulse Ox 99.1 F 68 18 137/46 H 92 05/17/20 04:00 05/17/20 04:00 05/17/20 04:00 05/17/20 04:00 05/17/20 04:00 Oxygen Flow Rate (L/min) 15 Oxygen Delivery Method Nasal Cannula Weight: 82.7 kg Body Mass Index (BMI) 30.5 Intake and Output for Last 24 Hours 05/15/20 05/16/20 05/17/20 23:59 23:59 23:59 Intake Total 480 / 480 300 / 300 Output Total 1999 / 1999 775 / 1075 750 / 750 Balance -1520 / -1520 -775 / -835 -450 / -450 Laboratory Results 05/16/20 12:45: POC Glucose 257 H 05/16/20 16:21: POC Glucose 255 H 05/16/20 20:23: POC Glucose 210 H 05/17/20 06:15: WBC 11.9 H, RBC 3.88 L, Hgb 11.2 L, Hct 35.2 L, MCV 90.7, MCH 28.9, MCHC 31.8 L, RDW Std Deviation 50.4 H, RDW Coeff of Geovanna 15.2 H, Plt Count 195, MPV 11.6 05/17/20 06:15: PT 23.9 H, INR 2.2 05/17/20 06:15: Sodium 129 L, Potassium 3.9, Chloride 94 L, Carbon Dioxide 28.0, Anion Gap 7, BUN 69 H, Creatinine 1.53 H, Estim Creat Clear Calc 31.57, Est GFR (MDRD) Af Amer 43 L, Est GFR (MDRD) Non-Af 36 L, BUN/Creatinine Ratio 45.1 H, Glucose 118 H, Calcium 7.7 L, Magnesium 1.9 Current Medications Acetaminophen (Acetaminophen 325 Mg Tablet) 650 mg PO Q6H PRN PRN PRN Reason: Pain Score 1-10/Temp > 100.7 F Last Admin: 05/09/20 00:59 Dose: 650 mg Documented by: Al Hydroxide/Mg Hydroxide (Mag Hydrox/Al Hydrox/Simeth 30 Ml Udc) 30 ml PO Q6H PRN PRN PRN Reason: Gastric Burning Albuterol Sulfate (Albuterol Sulfate 8 Gm Inhaler (60 Puffs)) 1 puff INHALATION Q4H PRN PRN PRN Reason: SOB/Wheezing Last Admin: 05/06/20 05:19 Dose: 1 puff Documented by: Allopurinol (Allopurinol 100 Mg Tablet) 100 mg PO BID [facility] Last Admin: 05/16/20 20:25 Dose: 100 mg Documented by: Amlodipine Besylate (Amlodipine 5 Mg Tablet) 5 mg PO QHS [facility] Last Admin: 05/16/20 20:29 Dose: 5 mg Documented by: Carvedilol (Carvedilol 6.25 Mg Tablet) 6.25 mg PO BID [facility] Last Admin: 05/16/20 20:26 Dose: 6.25 mg Documented by: Clopidogrel Bisulfate (Clopidogrel Bisulfate 75 Mg Tablet) 75 mg PO DAILY [facility] Last Admin: 05/16/20 09:18 Dose: 75 mg Documented by: Docusate Sodium (Docusate Sodium 100 Mg Capsule) 100 mg PO BID PRN PRN PRN Reason: Constipation Last Admin: 05/09/20 00:59 Dose: 100 mg Documented by: Furosemide (Furosemide 40 Mg/4 Ml Vial) 40 mg IV DAILY [facility] Last Admin: 05/16/20 09:18 Dose: 40 mg Documented by: Gabapentin (Gabapentin 300 Mg Capsule) 300 mg PO BID [facility] Last Admin: 05/16/20 20:25 Dose: 300 mg Documented by: Guaifenesin (Guaifenesin 10 Ml Udc (200mg/10ml)) 10 ml PO Q4H PRN PRN PRN Reason: COUGH Last Admin: 05/17/20 05:48 Dose: 10 ml Documented by: Sodium Chloride () 250 mls @ 15 mls/hr IV .[id number] PRN PRN Reason: Saline Flush Last Infusion: 05/06/20 06:05 Dose: 0 mls/hr Documented by: Sodium Chloride () 250 mls @ 15 mls/hr IV .[id number] PRN PRN Reason: Additional IVPB Infusion Insulin Glargine (Insulin Glargine 100 Units/Ml Pen) 10 units SC BID [facility] Last Admin: 05/16/20 20:26 Dose: 10 units Documented by: Insulin Human Lispro (Insulin Lispro 100 Unit/Ml Insuln.Pen) 0 unit SC [facility]; Protocol Last Admin: 05/17/20 07:16 Dose: Not Given Documented by: Melatonin (Melatonin 3 Mg Tablet) 3 mg PO QHS PRN PRN PRN Reason: INSOMNIA Last Admin: 05/15/20 21:25 Dose: 3 mg Documented by: Miscellaneous Information (Inhaler, Assist Devices 1 Each Spacer) 1 each INHALATION Q4HWA PRN PRN Reason: INHALER USE Morphine Sulfate (Morphine 2 Mg/Ml Syringe) 2 mg IV Q3H PRN PRN PRN Reason: Pain Score 6-10 Nystatin (Nystatin Powder 15gm Bottle) 1 applic TOPICAL BID [facility]; Protocol Last Admin: 05/16/20 20:27 Dose: 1 applicatio Documented by: Ondansetron HCl (Ondansetron 4 Mg/2 Ml Vial) 4 mg IV Q8H PRN PRN PRN Reason: NAUSEA/VOMITING Last Admin: 05/16/20 10:37 Dose: 4 mg Documented by: Pantoprazole Sodium (Pantoprazole Sodium 40 Mg Tablet) 40 mg PO DAILY [facility] Last Admin: 05/16/20 09:18 Dose: 40 mg Documented by: Pravastatin Sodium (Pravastatin 80 Mg Tablet) 80 mg PO QHS [facility] Last Admin: 05/16/20 20:26 Dose: 80 mg Documented by: Sertraline HCl (Sertraline 100 Mg Tablet) 100 mg PO DAILY [facility] Last Admin: 05/16/20 09:18 Dose: 100 mg Documented by: Sodium Chloride (0.9% Saline Lock 10 Ml Syringe) 10 - 40 ml IV UD PRN PRN Reason: SALINE FLUSH Last Admin: 05/16/20 10:40 Dose: 10 ml Documented by: Sodium Chloride (Sodium Chloride 0.65% 1 [place] Is[place].Btl) 1 spray NASAL TID PRN PRN PRN Reason: NASAL DRYNESS Last Admin: 05/11/20 21:46 Dose: 1 spray Documented by: Warfarin Sodium (Warfarin 1 Mg Tablet) 1 mg PO DAILY@1700 [facility] Last Admin: 05/16/20 16:29 Dose: 1 mg Documented by: STROKE Vital Signs/Narrative: Vital Signs Temp Pulse Resp BP Pulse Ox 05/17/20 04:00 99.1 F 68 18 137/46 H 92 Medical Necessity - Tobacco Use Smoking Status: Former smoker Tobacco Use: Cigarettes Assessment/Plan All Active Problems (Last Reviewed 05/04/20 @ 14:[address] Daphne Patel, DO) CHF exacerbation (Acute) Non-ST elevation myocardial infarction (NSTEMI) (Acute) CHF (congestive heart failure) (Acute) Cardiomyopathy (Acute) COVID-19 (Acute) Acute respiratory failure (Acute) NSTEMI (non-ST elevated myocardial infarction) (Resolved) Patient is a 70-year-old lady admitted with progressive shortness of breath diagnosed with acute COVID-19 pneumonia 1. Acute hypoxic respiratory failure due to combination of COVID-19 pneumonia as well as CHF - ?05/16/2020; patient seen still requiring high flow oxygen. - 05/17/20; patient still requires high flow oxygen however she has not been wearing the oxygen consistently. Plan is for patient to be assessed for home oxygen needs with possibility of patient being discharged home with home oxygen. She has been offered SNF versus LTAC patient declined. 2. Acute COVID-19 pneumonia ?Patient finished a course of dexamethasone and remdesivir 3. Acute on chronic congestive heart failure with reduced ejection fraction -Patient is on Lasix 4. Coumadin induced coagulopathy ?Coumadin on hold monitoring INR 5. Chronic kidney disease stage III ?Kidney function at baseline 6. Coronary artery disease ?With previous history of non-STEMI 7. Ischemic cardiomyopathy ?With EF of 5% 8. Diabetes mellitus type II -patient's oral hypoglycemics held. -Placed on long acting insulin, Accu-Cheks a.c. and at bedtime and covered with sliding scale insulin 9. Hyponatremia ?Secondary to fluid overload status from patient CHF patient receiving diuresis with subsequent monitoring of electrolyte 10. Physical deconditioning - Requested for PT OT eval and aids social worker to assist with discharge planning 11. DVT prophylaxis -patient is on Coumadin Inpatient E&M: 63684 Subs Hosp L2
--- NOTE | 2020-05-17 08:29 | PN_ITS ---
Patient Problems: Active and Suspected Problems (Last Reviewed 05/04/20 @ 14:[address] Daphne Patel, DO) CHF exacerbation (Acute) Non-ST elevation myocardial infarction (NSTEMI) (Acute) Cardiomyopathy (Acute) COVID-19 (Acute) Acute respiratory failure (Acute) Subjective: The patient was seen and examined at the bedside this morning. Events from the last 24 hours have been reviewed. The patient is currently afebrile, hemodynamically stable and maintaining appropriate oxygen saturations on high flow nasal cannula supplemental oxygen. The patient reports that she did not sleep well last night and is therefore tired this morning. Objective: The patient's most recent lab work, culture data and imaging studies have all been personally reviewed. Surface echocardiogram from April 2020 revealed severe segmental systolic dysfunction with an ejection fraction of 25%. Right ventricular systolic pressure was estimated to be 35 mmHg. Coronavirus PCR was positive on May 04. - Physical Exam Vitals/I&O's: Vital Signs Temp Pulse Resp BP Pulse Ox 99.1 F 66 25 H 137/46 H 90 05/17/20 04:00 05/17/20 07:03 05/17/20 07:03 05/17/20 04:00 05/17/20 07:03 Oxygen Flow Rate (L/min) 15 Oxygen Delivery Method Bi-pap Weight: 182 lb 5.156 oz Body Mass Index (BMI) 30.5 Intake and Output for Last 24 Hours 05/15/20 05/16/20 05/17/20 23:59 23:59 23:59 Intake Total 480 / 480 300 / 300 Output Total 1999 / 1999 775 / 1075 750 / 750 Balance -1520 / -1520 -775 / -835 -450 / -450 General: Alert, Cooperative, No apparent distress HEENT: Atraumatic, PERRLA, Normocephalic Oral: Dry Mucosa Neck: Supple, No Nodes, Trachea Midline Lungs: No rhonchi, No wheeze, No rales, Diminished Cardiovascular: Regular rate, Regular Rhythm Abdomen: Bowel Sounds Present, Soft, Non Tender Extremities: No clubbing, No cyanosis Skin: No breakdown Musculoskeletal: No Tenderness to Palpation of Joints or Extremities Lymphatic: No Cervical, Supraclavicular, or Inguinal Adenopathy Neurological: Cranial nerves II-XII grossly intact, Neuro grossly intact Psych/Mental Status: Normal Affect, Appropriate Labs (Last 48 Hours) 05/15/20 05/15/20 05/15/20 11:41 16:56 21:42 WBC RBC Hgb Hct MCV MCH MCHC RDW Std Deviation RDW Coeff of Geovanna Plt Count MPV PT INR Sodium Potassium Chloride Carbon Dioxide Anion Gap BUN Creatinine Estim Creat Clear Calc Est GFR (MDRD) Af Amer Est GFR (MDRD) Non-Af BUN/Creatinine Ratio Glucose Calcium Magnesium POC Glucose 178 H 274 H 205 H 05/16/20 05/16/20 05/16/20 04:30 04:30 04:30 WBC 14.1 H RBC 4.03 L Hgb 12.0 Hct 35.9 L MCV 89.1 MCH 29.8 MCHC 33.4 RDW Std Deviation 49.1 H RDW Coeff of Geovanna 15.0 H Plt Count 236 MPV 11.2 PT 28.9 H INR 2.8 Sodium 128 L Potassium 3.6 Chloride 93 L Carbon Dioxide 26.0 Anion Gap 9 BUN 71 H Creatinine 1.43 H Estim Creat Clear Calc 33.78 Est GFR (MDRD) Af Amer 47 L Est GFR (MDRD) Non-Af 38 L BUN/Creatinine Ratio 49.7 H Glucose 92 Calcium 8.3 L Magnesium 1.9 POC Glucose 05/16/20 05/16/20 05/16/20 06:07 12:45 16:21 WBC RBC Hgb Hct MCV MCH MCHC RDW Std Deviation RDW Coeff of Geovanna Plt Count MPV PT INR Sodium Potassium Chloride Carbon Dioxide Anion Gap BUN Creatinine Estim Creat Clear Calc Est GFR (MDRD) Af Amer Est GFR (MDRD) Non-Af BUN/Creatinine Ratio Glucose Calcium Magnesium POC Glucose 107 257 H 255 H 05/16/20 05/17/20 05/17/20 20:23 06:15 06:15 WBC 11.9 H RBC 3.88 L Hgb 11.2 L Hct 35.2 L MCV 90.7 MCH 28.9 MCHC 31.8 L RDW Std Deviation 50.4 H RDW Coeff of Geovanna 15.2 H Plt Count 195 MPV 11.6 PT 23.9 H INR 2.2 Sodium Potassium Chloride Carbon Dioxide Anion Gap BUN Creatinine Estim Creat Clear Calc Est GFR (MDRD) Af Amer Est GFR (MDRD) Non-Af BUN/Creatinine Ratio Glucose Calcium Magnesium POC Glucose 210 H 01/13/21 06:15 WBC RBC Hgb Hct MCV MCH MCHC RDW Std Deviation RDW Coeff of Geovanna Plt Count MPV PT INR Sodium 129 L Potassium 3.9 Chloride 94 L Carbon Dioxide 28.0 Anion Gap 7 BUN 69 H Creatinine 1.53 H Estim Creat Clear Calc 31.57 Est GFR (MDRD) Af Amer 43 L Est GFR (MDRD) Non-Af 36 L BUN/Creatinine Ratio 45.1 H Glucose 118 H Calcium 7.7 L Magnesium 1.9 POC Glucose Clinical Impression(s) from Imaging Studies Chest X-Ray 05/04/20 12:55 IMPRESSION: No change in acute or chronic interstitial lung disease. Interval resolution of left lower lobe pneumonia or atelectasis. Electronically Signed: Clifton Garza MD at 13:17 EST Tel , Service support , Chest X-Ray 05/05/20 05:55 IMPRESSION: Chronic interestitial changes. Additional airspace the likely representing pneumonia, similar in severity to the previous study . at [id number] Reported and signed by: Barry Alejo MD Electronically Signed: Barry Alejo MD at 5:06 EST Tel , Service support , Chest X-Ray 05/14/20 07:31 IMPRESSION: Unfavorable change. Bilateral reticular and groundglass opacities have progressed suggesting pneumonia (including viral causes) or pulmonary edema. 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 Electronically Signed: Wolf Ramirez MD ([place]) at 14:07 EST , Service support , Current Medications Acetaminophen (Acetaminophen 325 Mg Tablet) 650 mg PO Q6H PRN PRN PRN Reason: Pain Score 1-10/Temp > 100.7 F Last Admin: 05/09/20 00:59 Dose: 650 mg Documented by: Al Hydroxide/Mg Hydroxide (Mag Hydrox/Al Hydrox/Simeth 30 Ml Udc) 30 ml PO Q6H PRN PRN PRN Reason: Gastric Burning Albuterol Sulfate (Albuterol Sulfate 8 Gm Inhaler (60 Puffs)) 1 puff INHALATION Q4H PRN PRN PRN Reason: SOB/Wheezing Last Admin: 05/06/20 05:19 Dose: 1 puff Documented by: Allopurinol (Allopurinol 100 Mg Tablet) 100 mg PO BID [facility] Last Admin: 05/16/20 20:25 Dose: 100 mg Documented by: Amlodipine Besylate (Amlodipine 5 Mg Tablet) 5 mg PO QHS [facility] Last Admin: 05/16/20 20:29 Dose: 5 mg Documented by: Carvedilol (Carvedilol 6.25 Mg Tablet) 6.25 mg PO BID [facility] Last Admin: 05/16/20 20:26 Dose: 6.25 mg Documented by: Clopidogrel Bisulfate (Clopidogrel Bisulfate 75 Mg Tablet) 75 mg PO DAILY [facility] Last Admin: 05/16/20 09:18 Dose: 75 mg Documented by: Docusate Sodium (Docusate Sodium 100 Mg Capsule) 100 mg PO BID PRN PRN PRN Reason: Constipation Last Admin: 05/09/20 00:59 Dose: 100 mg Documented by: Furosemide (Furosemide 40 Mg/4 Ml Vial) 40 mg IV DAILY [facility] Last Admin: 05/16/20 09:18 Dose: 40 mg Documented by: Gabapentin (Gabapentin 300 Mg Capsule) 300 mg PO BID [facility] Last Admin: 05/16/20 20:25 Dose: 300 mg Documented by: Guaifenesin (Guaifenesin 10 Ml Udc (200mg/10ml)) 10 ml PO Q4H PRN PRN PRN Reason: COUGH Last Admin: 05/17/20 05:48 Dose: 10 ml Documented by: Sodium Chloride () 250 mls @ 15 mls/hr IV .[id number] PRN PRN Reason: Saline Flush Last Infusion: 05/06/20 06:05 Dose: 0 mls/hr Documented by: Sodium Chloride () 250 mls @ 15 mls/hr IV .[id number] PRN PRN Reason: Additional IVPB Infusion Insulin Glargine (Insulin Glargine 100 Units/Ml Pen) 10 units SC BID [facility] Last Admin: 05/16/20 20:26 Dose: 10 units Documented by: Insulin Human Lispro (Insulin Lispro 100 Unit/Ml Insuln.Pen) 0 unit SC ACHS [facility]; Protocol Last Admin: 05/17/20 07:16 Dose: Not Given Documented by: Melatonin (Melatonin 3 Mg Tablet) 3 mg PO QHS PRN PRN PRN Reason: INSOMNIA Last Admin: 05/15/20 21:25 Dose: 3 mg Documented by: Miscellaneous Information (Inhaler, Assist Devices 1 Each Spacer) 1 each INHALATION Q4HWA PRN PRN Reason: INHALER USE Morphine Sulfate (Morphine 2 Mg/Ml Syringe) 2 mg IV Q3H PRN PRN PRN Reason: Pain Score 6-10 Nystatin (Nystatin Powder 15gm Bottle) 1 applic TOPICAL BID [facility]; Protocol Last Admin: 05/16/20 20:27 Dose: 1 applicatio Documented by: Ondansetron HCl (Ondansetron 4 Mg/2 Ml Vial) 4 mg IV Q8H PRN PRN PRN Reason: NAUSEA/VOMITING Last Admin: 05/16/20 10:37 Dose: 4 mg Documented by: Pantoprazole Sodium (Pantoprazole Sodium 40 Mg Tablet) 40 mg PO DAILY [facility] Last Admin: 05/16/20 09:18 Dose: 40 mg Documented by: Pravastatin Sodium (Pravastatin 80 Mg Tablet) 80 mg PO QHS [facility] Last Admin: 05/16/20 20:26 Dose: 80 mg Documented by: Sertraline HCl (Sertraline 100 Mg Tablet) 100 mg PO DAILY [facility] Last Admin: 05/16/20 09:18 Dose: 100 mg Documented by: Sodium Chloride (0.9% Saline Lock 10 Ml Syringe) 10 - 40 ml IV UD PRN PRN Reason: SALINE FLUSH Last Admin: 05/16/20 10:40 Dose: 10 ml Documented by: Sodium Chloride (Sodium Chloride 0.65% 1 [place] Patterson.Btl) 1 spray NASAL TID PRN PRN PRN Reason: NASAL DRYNESS Last Admin: 05/11/20 21:46 Dose: 1 spray Documented by: Warfarin Sodium (Warfarin 1 Mg Tablet) 1 mg PO DAILY@1700 [facility] Last Admin: 05/16/20 16:29 Dose: 1 mg Documented by: Medical Necessity - Tobacco Use Smoking Status: Former smoker Tobacco Use: Cigarettes Assessment/Plan All Active Problems (Last Reviewed 05/04/20 @ 14:[address] Daphne Patel, DO) CHF exacerbation (Acute) Non-ST elevation myocardial infarction (NSTEMI) (Acute) CHF (congestive heart failure) (Acute) Cardiomyopathy (Acute) COVID-19 (Acute) Acute respiratory failure (Acute) NSTEMI (non-ST elevated myocardial infarction) (Resolved) RECOMMENDATIONS: 1. Continue BiPAP therapy and wean FiO2 to maintain oxygen saturations at or above 90%. 2. Continue diuresis as tolerated by hemodynamics and renal function. 3. Continue Coumadin. 4. Mobilize patient as tolerated. IMPRESSIONS: 1. Acute on chronic hypoxemic respiratory failure secondary to combined decompensated heart failure and COVID-19 pneumonia The patient will be continued on BiPAP therapy as tolerated with goals to wean her FiO2 to maintain oxygen saturations at or above 90%. The patient has already completed treatment courses of remdesivir and Decadron. She will remain on Lasix as tolerated by hemodynamics and renal function. 2. Acute on chronic kidney disease Improved. Continue attempts at gentle diuresis as tolerated by renal function. 3. History of ischemic cardiomyopathy/hypertension/hyperlipidemia/peripheral vascular disease/diabetes mellitus/questionable COPD/obesity Complicates care, management, recovery and prognosis. Continue home medications as tolerated. Continue Coumadin and check INR daily. This note was generated with [employer] dictation software. It may contain incorrect words, spelling, and punctuation that were not noted in checking the note before signing. Inpatient E&M: [id number] Subs Hosp L2
[2020-05-17] MEDS: Nystatin Powder 15gm Bottle 1 APPLIC TOPICAL ×2 (09:00→21:42)
[2020-05-17] MEDS: Carvedilol 6.25 MG Tablet PO ×2 (09:01→21:41)
[2020-05-17] MEDS: Gabapentin 300 MG Capsule PO ×2 (09:01→21:42)
[2020-05-17] MEDS: Furosemide 40 MG/4 ML Vial IV (09:02)
[2020-05-17] MEDS: Sertraline 100 MG Tablet PO (09:02)
[2020-05-17] MEDS: Pantoprazole Sodium 40 MG Tablet PO (09:02)
[2020-05-17] MEDS: Clopidogrel Bisulfate 75 MG Tablet PO (09:02)
[2020-05-17] MEDS: Allopurinol 100 MG Tablet PO ×2 (09:02→21:42)
[2020-05-17] MEDS: 0.9% Saline Lock 10 ML Syringe IV (10:28)
[2020-05-17] MEDS: Ondansetron 4 MG/2 ML Vial IV (10:29)
[2020-05-17] MEDS: Insulin Lispro 100 UNIT/ML INSULN.PEN SC ×3 (11:34→21:30)
[2020-05-17 12:40] LABS: Bedside Glucose 240 mg/dL (70-110)
--- NOTE | 2020-05-17 13:27 | CASEMGMT ---
Social Work SW placed call to pt and spoke to her on the phone. SW offered emotional support to pt as she has had long hospitalization related to Covid. Pt expressing that she is doing fine and although it has been a long haul she denies any depressive feelings. SW discussed discharge plan with pt including LTACH and SNF and pt adamantly refusing either option. Pt stating she will return home from this setting and will not be going anywhere else. SW attempted to explain benefit of LTACH or SNF and concerns with oxygen levels and pt continues to states she will not be going anywhere but home. Pt states her , son and daughter in law will be available to assist pt. SW will continue to follow as needed for support and d/c needs. YOLY [place]
[2020-05-17 18:16] LABS: Bedside Glucose 155 mg/dL (70-110)
[2020-05-17] MEDS: amLODIPine 5 MG Tablet PO (21:42)
[2020-05-17] MEDS: Pravastatin 80 MG Tablet PO (21:42)
[2020-05-17 22:46] LABS: Bedside Glucose 233 mg/dL (70-110)
[2020-05-18] VITALS (17 sets, daily range): BP systolic 103–116; BP diastolic 38–48; PULSE 58–76; RESP 12–29; TEMP 36.6–37.4; O2SAT 80–100
[2020-05-18 05:05] LABS: Hematocrit 35.3 % (37-47); Hemoglobin 11.2 g/dL (12.0-15.0); Mean Corp Hgb Conc 31.7 g/dL (32-36); Mean Corpuscular Hgb 29.1 pg (27.0-32.0); Mean Corpuscular Volume 91.7 fL (81-99); Mean Platelet Vol. 10.9 fl (6.2-12.0); Platelet Count 211 K/mm3 (150-450); RBC Distribution Width SD 50.5 fl (35.1-43.9); Red Blood Count 3.85 M/mm3 (4.2-5.4); White Blood Count 12.8 K/mm3 (4.4-11.0)
[2020-05-18 05:15] LABS: International Normalized Ratio 2.3; Prothrombin Time (Protime)PT. 24.8 SECONDS (11.7-14.9)
[2020-05-18 05:24] LABS: Anion Gap 7 (5-15); BUN 66 mg/dL (7-18); BUN/Creat Ratio 37.7 RATIO (10-20); Calcium,Total 8.5 mg/dL (8.5-10.1); Chloride 95 mmol/L (98-107); Creatinine, Serum 1.75 mg/dL (0.55-1.02); EST Glomerular Filtration Rate 30 mL/min (>60); Est Glom Filt Rate - Afr Amer 37 mL/min (>60); Glucose 126 mg/dL (74-106); Magnesium 1.9 mg/dL (1.6-2.6); Potassium 4.3 mmol/L (3.5-5.1); Sodium Level 129 mmol/L (136-145)
--- NOTE | 2020-05-18 06:44 | PCM.PN.PUL ---
Patient Problems: Active and Suspected Problems (Last Reviewed 05/04/20 @ 14:[address] Daphne Patel, DO) CHF exacerbation (Acute) Non-ST elevation myocardial infarction (NSTEMI) (Acute) Cardiomyopathy (Acute) COVID-19 (Acute) Acute respiratory failure (Acute) Subjective: The patient was seen and examined at the bedside this morning. Events from the last 24 hours have been reviewed. The patient is currently afebrile, hemodynamically stable and maintaining appropriate oxygen saturations on BiPAP with an FiO2 requirement of 80%. Creatinine has increased this morning from 1.5 to 1.75. The patient is currently documented to be overall net -9.8 L for the hospital admission. Despite her high FiO2 requirement, the patient denies the presence of dyspnea this morning. Objective: The patient's most recent lab work, culture data and imaging studies have all been personally reviewed. Surface echocardiogram from April 2020 revealed severe segmental systolic dysfunction with an ejection fraction of 25%. Right ventricular systolic pressure was estimated to be 35 mmHg. Coronavirus PCR was positive on May 04. - Physical Exam Vitals/I&O's: Vital Signs Temp Pulse Resp BP Pulse Ox 97.9 F 70 26 H 116/46 L 91 05/18/20 04:22 05/18/20 04:56 05/18/20 04:56 05/18/20 04:22 05/18/20 04:56 Oxygen Flow Rate (L/min) 15 Oxygen Delivery Method Bi-pap Weight: 180 lb 15.992 oz Body Mass Index (BMI) 30.5 Intake and Output for Last 24 Hours 05/16/20 05/17/20 05/18/20 23:59 23:59 23:59 Intake Total 650 / 700 100 / 100 Output Total 775 / 1075 750 / 1050 550 / 550 Balance -775 / -835 -100 / -350 -450 / -450 General: Alert, Cooperative, No apparent distress, - - BiPAP mask remains in place. HEENT: Atraumatic, PERRLA, Normocephalic Oral: Dry Mucosa Neck: Supple, No Nodes, Trachea Midline Lungs: No rhonchi, No wheeze, No rales, Diminished Cardiovascular: Regular rate, Regular Rhythm Abdomen: Bowel Sounds Present, Soft, Non Tender Extremities: No clubbing, No cyanosis, No edema Skin: No breakdown Musculoskeletal: No Tenderness to Palpation of Joints or Extremities Lymphatic: No Cervical, Supraclavicular, or Inguinal Adenopathy Neurological: Cranial nerves II-XII grossly intact, Neuro grossly intact Psych/Mental Status: Normal Affect, Appropriate Labs (Last 48 Hours) 05/16/20 05/16/20 05/16/20 12:45 16:21 20:23 WBC RBC Hgb Hct MCV MCH MCHC RDW Std Deviation RDW Coeff of Geovanna Plt Count MPV PT INR Sodium Potassium Chloride Carbon Dioxide Anion Gap BUN Creatinine Estim Creat Clear Calc Est GFR (MDRD) Af Amer Est GFR (MDRD) Non-Af BUN/Creatinine Ratio Glucose Calcium Magnesium POC Glucose 257 H 255 H 210 H 05/17/20 05/17/20 05/17/20 06:15 06:15 06:15 WBC 11.9 H RBC 3.88 L Hgb 11.2 L Hct 35.2 L MCV 90.7 MCH 28.9 MCHC 31.8 L RDW Std Deviation 50.4 H RDW Coeff of Geovanna 15.2 H Plt Count 195 MPV 11.6 PT 23.9 H INR 2.2 Sodium 129 L Potassium 3.9 Chloride 94 L Carbon Dioxide 28.0 Anion Gap 7 BUN 69 H Creatinine 1.53 H Estim Creat Clear Calc 31.57 Est GFR (MDRD) Af Amer 43 L Est GFR (MDRD) Non-Af 36 L BUN/Creatinine Ratio 45.1 H Glucose 118 H Calcium 7.7 L Magnesium 1.9 POC Glucose 05/17/20 05/17/20 05/17/20 11:32 16:25 21:29 WBC RBC Hgb Hct MCV MCH MCHC RDW Std Deviation RDW Coeff of Geovanna Plt Count MPV PT INR Sodium Potassium Chloride Carbon Dioxide Anion Gap BUN Creatinine Estim Creat Clear Calc Est GFR (MDRD) Af Amer Est GFR (MDRD) Non-Af BUN/Creatinine Ratio Glucose Calcium Magnesium POC Glucose 240 H 155 H 233 H 05/18/20 05/18/20 05/18/20 04:54 04:54 04:54 WBC 12.8 H RBC 3.85 L Hgb 11.2 L Hct 35.3 L MCV 91.7 MCH 29.1 MCHC 31.7 L RDW Std Deviation 50.5 H RDW Coeff of Geovanna 15.0 H Plt Count 211 MPV 10.9 PT 24.8 H INR 2.3 Sodium 129 L Potassium 4.3 Chloride 95 L Carbon Dioxide 27.0 Anion Gap 7 BUN 66 H Creatinine 1.75 H Estim Creat Clear Calc 27.60 Est GFR (MDRD) Af Amer 37 L Est GFR (MDRD) Non-Af 30 L BUN/Creatinine Ratio 37.7 H Glucose 126 H Calcium 8.5 Magnesium 1.9 POC Glucose Clinical Impression(s) from Imaging Studies Chest X-Ray 05/04/20 12:55 IMPRESSION: No change in acute or chronic interstitial lung disease. Interval resolution of left lower lobe pneumonia or atelectasis. Electronically Signed: Clifton Garza MD at 13:17 EST Tel , Service support , Chest X-Ray 05/05/20 05:55 IMPRESSION: Chronic interestitial changes. Additional airspace the likely representing pneumonia, similar in severity to the previous study . at 0507 Reported and signed by: Barry Alejo MD Electronically Signed: Barry Alejo MD at 5:06 EST Tel , Service support , Chest X-Ray 05/14/20 07:31 IMPRESSION: Unfavorable change. Bilateral reticular and groundglass opacities have progressed suggesting pneumonia (including viral causes) or pulmonary edema. 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 Electronically Signed: Wolf Ramirez MD ([place]) at 14:07 EST , Service support , Current Medications Acetaminophen (Acetaminophen 325 Mg Tablet) 650 mg PO Q6H PRN PRN PRN Reason: Pain Score 1-10/Temp > 100.7 F Last Admin: 05/09/20 00:59 Dose: 650 mg Documented by: Al Hydroxide/Mg Hydroxide (Mag Hydrox/Al Hydrox/Simeth 30 Ml Udc) 30 ml PO Q6H PRN PRN PRN Reason: Gastric Burning Albuterol Sulfate (Albuterol Sulfate 8 Gm Inhaler (60 Puffs)) 1 puff INHALATION Q4H PRN PRN PRN Reason: SOB/Wheezing Last Admin: 05/06/20 05:19 Dose: 1 puff Documented by: Allopurinol (Allopurinol 100 Mg Tablet) 100 mg PO BID [facility] Last Admin: 05/17/20 21:42 Dose: 100 mg Documented by: Amlodipine Besylate (Amlodipine 5 Mg Tablet) 5 mg PO QHS [facility] Last Admin: 05/17/20 21:42 Dose: 5 mg Documented by: Carvedilol (Carvedilol 6.25 Mg Tablet) 6.25 mg PO BID [facility] Last Admin: 05/17/20 21:41 Dose: 6.25 mg Documented by: Clopidogrel Bisulfate (Clopidogrel Bisulfate 75 Mg Tablet) 75 mg PO DAILY [facility] Last Admin: 05/17/20 09:02 Dose: 75 mg Documented by: Docusate Sodium (Docusate Sodium 100 Mg Capsule) 100 mg PO BID PRN PRN PRN Reason: Constipation Last Admin: 05/09/20 00:59 Dose: 100 mg Documented by: Furosemide (Furosemide 40 Mg/4 Ml Vial) 40 mg IV DAILY [facility] Last Admin: 05/17/20 09:02 Dose: 40 mg Documented by: Gabapentin (Gabapentin 300 Mg Capsule) 300 mg PO BID [facility] Last Admin: 05/17/20 21:42 Dose: 300 mg Documented by: Guaifenesin (Guaifenesin 10 Ml Udc (200mg/10ml)) 10 ml PO Q4H PRN PRN PRN Reason: COUGH Last Admin: 05/17/20 05:48 Dose: 10 ml Documented by: Sodium Chloride () 250 mls @ 15 mls/hr IV .[id number] PRN PRN Reason: Saline Flush Last Infusion: 05/06/20 06:05 Dose: 0 mls/hr Documented by: Sodium Chloride () 250 mls @ 15 mls/hr IV .[id number] PRN PRN Reason: Additional IVPB Infusion Insulin Glargine (Insulin Glargine 100 Units/Ml Pen) 10 units SC BID [facility] Last Admin: 05/17/20 21:30 Dose: 10 units Documented by: Insulin Human Lispro (Insulin Lispro 100 Unit/Ml Insuln.Pen) 0 unit SC ACHS [facility]; Protocol Last Admin: 05/18/20 06:41 Dose: Not Given Documented by: Melatonin (Melatonin 3 Mg Tablet) 3 mg PO QHS PRN PRN PRN Reason: INSOMNIA Last Admin: 05/15/20 21:25 Dose: 3 mg Documented by: Miscellaneous Information (Inhaler, Assist Devices 1 Each Spacer) 1 each INHALATION Q4HWA PRN PRN Reason: INHALER USE Morphine Sulfate (Morphine 2 Mg/Ml Syringe) 2 mg IV Q3H PRN PRN PRN Reason: Pain Score 6-10 Nystatin (Nystatin Powder 15gm Bottle) 1 applic TOPICAL BID [facility]; Protocol Last Admin: 05/17/20 21:42 Dose: 1 applicatio Documented by: Ondansetron HCl (Ondansetron 4 Mg/2 Ml Vial) 4 mg IV Q8H PRN PRN PRN Reason: NAUSEA/VOMITING Last Admin: 05/17/20 10:29 Dose: 4 mg Documented by: Pantoprazole Sodium (Pantoprazole Sodium 40 Mg Tablet) 40 mg PO DAILY [facility] Last Admin: 05/17/20 09:02 Dose: 40 mg Documented by: Pravastatin Sodium (Pravastatin 80 Mg Tablet) 80 mg PO QHS [facility] Last Admin: 05/17/20 21:42 Dose: 80 mg Documented by: Sertraline HCl (Sertraline 100 Mg Tablet) 100 mg PO DAILY [facility] Last Admin: 05/17/20 09:02 Dose: 100 mg Documented by: Sodium Chloride (0.9% Saline Lock 10 Ml Syringe) 10 - 40 ml IV UD PRN PRN Reason: SALINE FLUSH Last Admin: 05/17/20 10:28 Dose: 10 ml Documented by: Sodium Chloride (Sodium Chloride 0.65% 1 [place].Btl) 1 spray NASAL TID PRN PRN PRN Reason: NASAL DRYNESS Last Admin: 05/11/20 21:46 Dose: 1 spray Documented by: Warfarin Sodium (Warfarin 1 Mg Tablet) 1 mg PO DAILY@1700 [facility] Last Admin: 05/17/20 16:27 Dose: 1 mg Documented by: Medical Necessity - Tobacco Use Smoking Status: Former smoker Tobacco Use: Cigarettes Assessment/Plan All Active Problems (Last Reviewed 05/04/20 @ 14:[address] Daphne Patel DO) CHF exacerbation (Acute) Non-ST elevation myocardial infarction (NSTEMI) (Acute) CHF (congestive heart failure) (Acute) Cardiomyopathy (Acute) COVID-19 (Acute) Acute respiratory failure (Acute) NSTEMI (non-ST elevated myocardial infarction) (Resolved) RECOMMENDATIONS: 1. Obtain repeat plain film chest x-ray this morning. 2. Attempt to wean patient from BiPAP to Airvo heated high flow oxygen. Wean FiO2 to maintain oxygen saturations at or above 90%. 3. Consider de-escalation in Lasix regimen, given increasing creatinine. 4. Continue Coumadin. 5. Mobilize patient as tolerated. IMPRESSIONS: 1. Acute on chronic hypoxemic respiratory failure secondary to combined decompensated heart failure and COVID-19 pneumonia The patient will be continued on BiPAP therapy as tolerated with goals to wean her FiO2 to maintain oxygen saturations at or above 90%. The patient has already completed treatment courses of remdesivir and Decadron. She will remain on Lasix as tolerated by hemodynamics and renal function. 2. Acute on chronic kidney disease Improved. Continue attempts at gentle diuresis as tolerated by renal function. 3. History of ischemic cardiomyopathy/hypertension/hyperlipidemia/peripheral vascular disease/diabetes mellitus/questionable COPD/obesity Complicates care, management, recovery and prognosis. Continue home medications as tolerated. Continue Coumadin and check INR daily. This note was generated with [employer] dictation software. It may contain incorrect words, spelling, and punctuation that were not noted in checking the note before signing. Inpatient E&M: [id number] [facility] L3
--- NOTE | 2020-05-18 06:45 | RAD_ITS ---
STUDY: X-RAY CHEST REASON FOR EXAM: Female, 70 years old. RESPIRATORY FAILURE TECHNIQUE: Single AP portable view of the chest. COMPARISON: Comparison is made with prior study dated 05/14/2020. FINDINGS: EKG electrodes are seen. Since prior study, there has been progression of the patchy bilateral infiltrates in the preferential lateral distribution worse in the right hemithorax. There is no demonstrated pleural abnormality. Normal size heart. Normal mediastinum and mignon. Normal visualized pulmonary arteries. There is atherosclerotic calcification of the aortic arch with tortuosity. There are diffuse degenerative changes of the visualized thoracic spine. Normal visualized ribs, clavicles, and shoulders. There is no demonstrated abnormality of the visualized soft tissue structures of the upper abdomen. RAD/Chest 1 View (Portable) IMPRESSION: Since prior study, there has been a progression of the bilateral pulmonary infiltrates in a preferential peripheral distribution. Electronically Signed: Dany Crabtree, at 8:44 EST , Service support ,
[2020-05-18 06:56] LABS: Bedside Glucose 136 mg/dL (70-110)
--- NOTE | 2020-05-18 07:27 | PCM.PN.HOSP ---
Patient Problems: Active and Suspected Problems (Last Reviewed 05/04/20 @ 14:[address] Daphne Patel, DO) CHF exacerbation (Acute) Non-ST elevation myocardial infarction (NSTEMI) (Acute) Cardiomyopathy (Acute) COVID-19 (Acute) Acute respiratory failure (Acute) Reason for Visit: Acute Hypoxic respiratory failure Subjective: Patient is a 70-year-old lady who is been on admission for 2 weeks for COVID-19 pneumonia. Patient had to be placed on airvo during the evening. On Lasix dose adjusted this a.m. due to worsening kidney function Objective: GENERAL: cooperative HEENT: Atraumatic; EYES; Anicteric, Normal Conjunctiva NECK; supple, normal thyroid, RESPIRATORY: Diminished to auscultation CARDIOVASCULAR: Regular S1 S2, GI: soft, normoactive bowel sounds, : No Renal angle tenderness; EXTREMITIES: No edema, no clubbing, MUSCULOSKELETAL: no muscle waisting NEURO: Awake; no lateralizing signs. SKIN: No Rash PSYCH; Flat affect Vitals/I&O's: Vital Signs Temp Pulse Resp BP Pulse Ox 97.9 F 70 26 H 116/46 L 91 05/18/20 04:22 05/18/20 04:56 05/18/20 04:56 05/18/20 04:22 05/18/20 04:56 Oxygen Flow Rate (L/min) 15 Oxygen Delivery Method Bi-pap Weight: 82.1 kg Body Mass Index (BMI) 30.5 Intake and Output for Last 24 Hours 05/16/20 05/17/20 05/18/20 23:59 23:59 23:59 Intake Total 650 / 700 100 / 100 Output Total 775 / 1075 750 / 1050 550 / 550 Balance -775 / -835 -100 / -350 -450 / -450 Laboratory Results 05/17/20 11:32: POC Glucose 240 H 05/17/20 16:25: POC Glucose 155 H 05/17/20 21:29: POC Glucose 233 H 05/18/20 04:54: WBC 12.8 H, RBC 3.85 L, Hgb 11.2 L, Hct 35.3 L, MCV 91.7, MCH 29.1, MCHC 31.7 L, RDW Std Deviation 50.5 H, RDW Coeff of Geovanna 15.0 H, Plt Count 211, MPV 10.9 05/18/20 04:54: PT 24.8 H, INR 2.3 05/18/20 04:54: Sodium 129 L, Potassium 4.3, Chloride 95 L, Carbon Dioxide 27.0, Anion Gap 7, BUN 66 H, Creatinine 1.75 H, Estim Creat Clear Calc 27.60, Est GFR (MDRD) Af Amer 37 L, Est GFR (MDRD) Non-Af 30 L, BUN/Creatinine Ratio 37.7 H, Glucose 126 H, Calcium 8.5, Magnesium 1.9 05/18/20 06:41: POC Glucose 136 H Current Medications Acetaminophen (Acetaminophen 325 Mg Tablet) 650 mg PO Q6H PRN PRN PRN Reason: Pain Score 1-10/Temp > 100.7 F Last Admin: 05/09/20 00:59 Dose: 650 mg Documented by: Al Hydroxide/Mg Hydroxide (Mag Hydrox/Al Hydrox/Simeth 30 Ml Udc) 30 ml PO Q6H PRN PRN PRN Reason: Gastric Burning Albuterol Sulfate (Albuterol Sulfate 8 Gm Inhaler (60 Puffs)) 1 puff INHALATION Q4H PRN PRN PRN Reason: SOB/Wheezing Last Admin: 05/06/20 05:19 Dose: 1 puff Documented by: Allopurinol (Allopurinol 100 Mg Tablet) 100 mg PO BID [facility] Last Admin: 05/17/20 21:42 Dose: 100 mg Documented by: Amlodipine Besylate (Amlodipine 5 Mg Tablet) 5 mg PO QHS [facility] Last Admin: 05/17/20 21:42 Dose: 5 mg Documented by: Carvedilol (Carvedilol 6.25 Mg Tablet) 6.25 mg PO BID [facility] Last Admin: 05/17/20 21:41 Dose: 6.25 mg Documented by: Clopidogrel Bisulfate (Clopidogrel Bisulfate 75 Mg Tablet) 75 mg PO DAILY [facility] Last Admin: 05/17/20 09:02 Dose: 75 mg Documented by: Docusate Sodium (Docusate Sodium 100 Mg Capsule) 100 mg PO BID PRN PRN PRN Reason: Constipation Last Admin: 05/09/20 00:59 Dose: 100 mg Documented by: Furosemide (Furosemide 40 Mg Tablet) 40 mg PO DAILY [facility] Gabapentin (Gabapentin 300 Mg Capsule) 300 mg PO BID [facility] Last Admin: 05/17/20 21:42 Dose: 300 mg Documented by: Guaifenesin (Guaifenesin 10 Ml Udc (200mg/10ml)) 10 ml PO Q4H PRN PRN PRN Reason: COUGH Last Admin: 05/17/20 05:48 Dose: 10 ml Documented by: Sodium Chloride () 250 mls @ 15 mls/hr IV .[id number] PRN PRN Reason: Saline Flush Last Infusion: 05/06/20 06:05 Dose: 0 mls/hr Documented by: Sodium Chloride () 250 mls @ 15 mls/hr IV .[id number] PRN PRN Reason: Additional IVPB Infusion Insulin Glargine (Insulin Glargine 100 Units/Ml Pen) 10 units SC BID [facility] Last Admin: 05/17/20 21:30 Dose: 10 units Documented by: Insulin Human Lispro (Insulin Lispro 100 Unit/Ml Insuln.Pen) 0 unit SC ACHS [facility]; Protocol Last Admin: 05/18/20 06:41 Dose: Not Given Documented by: Melatonin (Melatonin 3 Mg Tablet) 3 mg PO QHS PRN PRN PRN Reason: INSOMNIA Last Admin: 05/15/20 21:25 Dose: 3 mg Documented by: Miscellaneous Information (Inhaler, Assist Devices 1 Each Spacer) 1 each INHALATION Q4HWA PRN PRN Reason: INHALER USE Morphine Sulfate (Morphine 2 Mg/Ml Syringe) 2 mg IV Q3H PRN PRN PRN Reason: Pain Score 6-10 Nystatin (Nystatin Powder 15gm Bottle) 1 applic TOPICAL BID [facility]; Protocol Last Admin: 05/17/20 21:42 Dose: 1 applicatio Documented by: Ondansetron HCl (Ondansetron 4 Mg/2 Ml Vial) 4 mg IV Q8H PRN PRN PRN Reason: NAUSEA/VOMITING Last Admin: 05/17/20 10:29 Dose: 4 mg Documented by: Pantoprazole Sodium (Pantoprazole Sodium 40 Mg Tablet) 40 mg PO DAILY [facility] Last Admin: 05/17/20 09:02 Dose: 40 mg Documented by: Pravastatin Sodium (Pravastatin 80 Mg Tablet) 80 mg PO QHS [facility] Last Admin: 05/17/20 21:42 Dose: 80 mg Documented by: Sertraline HCl (Sertraline 100 Mg Tablet) 100 mg PO DAILY [facility] Last Admin: 05/17/20 09:02 Dose: 100 mg Documented by: Sodium Chloride (0.9% Saline Lock 10 Ml Syringe) 10 - 40 ml IV UD PRN PRN Reason: SALINE FLUSH Last Admin: 05/17/20 10:28 Dose: 10 ml Documented by: Sodium Chloride (Sodium Chloride 0.65% 1 [place].Btl) 1 spray NASAL TID PRN PRN PRN Reason: NASAL DRYNESS Last Admin: 05/11/20 21:46 Dose: 1 spray Documented by: Warfarin Sodium (Warfarin 1 Mg Tablet) 1 mg PO DAILY@1700 [facility] Last Admin: 05/17/20 16:27 Dose: 1 mg Documented by: STROKE Vital Signs/Narrative: Vital Signs Temp Pulse Resp BP Pulse Ox 05/18/20 04:56 70 26 H 91 05/18/20 04:27 20 H 80 05/18/20 04:22 97.9 F 62 20 H 116/46 L 96 Medical Necessity - Tobacco Use Smoking Status: Former smoker Tobacco Use: Cigarettes Assessment/Plan All Active Problems (Last Reviewed 05/04/20 @ 14:[address] Daphne Patel, DO) CHF exacerbation (Acute) Non-ST elevation myocardial infarction (NSTEMI) (Acute) CHF (congestive heart failure) (Acute) Cardiomyopathy (Acute) COVID-19 (Acute) Acute respiratory failure (Acute) NSTEMI (non-ST elevated myocardial infarction) (Resolved) Patient is a 70-year-old lady admitted with progressive shortness of breath diagnosed with acute COVID-19 pneumonia 1. Acute hypoxic respiratory failure due to combination of COVID-19 pneumonia as well as CHF - ?05/16/2020; patient seen still requiring high flow oxygen. - 05/17/20; patient still requires high flow oxygen however she has not been wearing the oxygen consistently. Plan is for patient to be assessed for home oxygen needs with possibility of patient being discharged home with home oxygen. She has been offered SNF versus LTAC patient declined. -05/18/20; patient respiratory status deteriorated resulting in patient being placed on flow oxygen Airvo 2. Acute COVID-19 pneumonia ?Patient finished a course of dexamethasone and remdesivir 3. Acute on chronic congestive heart failure with reduced ejection fraction -Patient is on Lasix -05/18/2020 adjusted dose of Lasix in view of worsening kidney function 4. Coumadin induced coagulopathy ?Coumadin on hold monitoring INR 5. Chronic kidney disease stage III ?Kidney function at baseline - slight worsening of kidney function. Lasix dose adjusted as discussed above. 6. Coronary artery disease ?With previous history of non-STEMI 7. Ischemic cardiomyopathy ?With EF of 5% 8. Diabetes mellitus type II -patient's oral hypoglycemics held. -Placed on long acting insulin, Accu-Cheks a.c. and at bedtime and covered with sliding scale insulin 9. Hyponatremia ?Secondary to fluid overload status from patient CHF patient receiving diuresis with subsequent monitoring of electrolyte 10. Physical deconditioning - Requested for PT OT eval and director social welfare to assist with discharge planning -05/18/2020; patient had initially declined being discharged to SNF versus LTAC however did discuss with patient about at least considering LTAC to wean her off oxygen prior to going home 11. DVT prophylaxis -patient is on Coumadin Inpatient E&M: [id number] [facility] L3
[2020-05-18] MEDS: Allopurinol 100 MG Tablet PO ×2 (09:08→20:04)
[2020-05-18] MEDS: Pantoprazole Sodium 40 MG Tablet PO (09:08)
[2020-05-18] MEDS: Clopidogrel Bisulfate 75 MG Tablet PO (09:08)
[2020-05-18] MEDS: Carvedilol 6.25 MG Tablet PO ×2 (09:08→20:03)
[2020-05-18] MEDS: Furosemide 40 MG Tablet PO (09:08)
[2020-05-18] MEDS: Nystatin Powder 15gm Bottle 1 APPLIC TOPICAL ×2 (09:08→20:03)
[2020-05-18] MEDS: Sertraline 100 MG Tablet PO (09:08)
[2020-05-18] MEDS: Gabapentin 300 MG Capsule PO ×2 (09:08→20:03)
--- NOTE | 2020-05-18 10:25 | CASEMGMT ---
RN CM Note: Patient has agreed, per Dr. Ybarra and nursing, to go [facility] for [facility]. [facility] was listed on [facility] website. Call to Happy, admissions @ [facility] and they are not accepting patients @ this time. Referral faxed to [facility]. Call to Lorna Sultana to update on referral. Susanne BAHENAN LOIS ACM
[2020-05-18] MEDS: Insulin Lispro 100 UNIT/ML INSULN.PEN SC ×2 (11:34→16:31)
[2020-05-18 12:00] LABS: Bedside Glucose 287 mg/dL (70-110)
--- NOTE | 2020-05-18 14:26 | CASEMGMT ---
LOIS CM Note: call to Lorna @ [facility]. They are working on referral. Susanne ESPINOZA RN ACM
--- NOTE | 2020-05-18 15:22 | CASEMGMT ---
LOIS KRAUSE Note -Precert for [facility] started per Lorna Sultana @ [facility]. Will notify when approval is received. Updated that Layla ABREU CM will be covering the unit. Susanne ESPINOZA RN ACM
[2020-05-18 17:55] LABS: Bedside Glucose 211 mg/dL (70-110)
[2020-05-18] MEDS: amLODIPine 5 MG Tablet PO (20:03)
[2020-05-18] MEDS: Pravastatin 80 MG Tablet PO (20:03)
[2020-05-18] MEDS: BENZOCAINE/MENTHOL 1 LOZENGE MUCOUS MEM ×2 (20:05→22:08)
--- NOTE | 2020-05-18 20:06 | CPS ---
pt wearing nasal pillows in mouth, says she can't breathe out of her nose.
[2020-05-18 22:20] LABS: Bedside Glucose 134 mg/dL (70-110)
[2020-05-19] VITALS (20 sets, daily range): BP systolic 104–139; BP diastolic 36–69; PULSE 63–92; RESP 12–35; TEMP 36.2–37.2; O2SAT 89–96
[2020-05-19 06:45] LABS: Bedside Glucose 122 mg/dL (70-110)
--- NOTE | 2020-05-19 06:54 | PCM.PN.PUL ---
Patient Problems: Active and Suspected Problems (Last Reviewed 05/04/20 @ 14:[address] Daphne Patel, DO) CHF exacerbation (Acute) Non-ST elevation myocardial infarction (NSTEMI) (Acute) Cardiomyopathy (Acute) COVID-19 (Acute) Acute respiratory failure (Acute) Subjective: The patient was seen and examined at the bedside this morning. Events from the last 24 hours have been reviewed. The patient is currently afebrile, hemodynamically stable and maintaining appropriate oxygen saturations on BiPAP. The patient tolerated Airvo heated high flow oxygen most of the day yesterday. The patient is currently documented to be overall net -8.6 L for the hospital admission. Objective: The patient's most recent lab work, culture data and imaging studies have all been personally reviewed. Surface echocardiogram from April 2020 revealed severe segmental systolic dysfunction with an ejection fraction of 25%. Right ventricular systolic pressure was estimated to be 35 mmHg. Coronavirus PCR was positive on May 04. - Physical Exam Vitals/I&O's: Vital Signs Temp Pulse Resp BP Pulse Ox 97.2 F L 74 20 H 127/63 H 95 05/19/20 06:33 05/19/20 06:33 05/19/20 06:33 05/19/20 06:33 05/19/20 06:33 Oxygen Flow Rate (L/min) 60 Oxygen Delivery Method Bi-pap Weight: 180 lb 12.465 oz Body Mass Index (BMI) 30.5 Intake and Output for Last 24 Hours 05/17/20 05/18/20 05/19/20 23:59 23:59 23:59 Intake Total 650 / 700 1500 / 1500 50 / 50 Output Total 750 / 1050 550 / 550 225 / 225 Balance -100 / -350 950 / 950 -175 / -175 General: Alert, No apparent distress HEENT: Atraumatic, Normocephalic Oral: No Gingival or Mucosal Lesions/ Ulcerations Neck: Supple, No Nodes, Trachea Midline Lungs: No rhonchi, No wheeze, No rales, Diminished Cardiovascular: Regular rate, Regular Rhythm Abdomen: Bowel Sounds Present, Soft, Non Tender Extremities: No clubbing, No cyanosis, No edema Skin: No breakdown Musculoskeletal: No Tenderness to Palpation of Joints or Extremities Lymphatic: No Cervical, Supraclavicular, or Inguinal Adenopathy Neurological: Cranial nerves II-XII grossly intact, Neuro grossly intact Psych/Mental Status: Normal Affect Labs (Last 48 Hours) 05/17/20 05/17/20 05/18/20 16:25 21:29 04:54 WBC 12.8 H RBC 3.85 L Hgb 11.2 L Hct 35.3 L MCV 91.7 MCH 29.1 MCHC 31.7 L RDW Std Deviation 50.5 H RDW Coeff of Geovanna 15.0 H Plt Count 211 MPV 10.9 PT INR Sodium Potassium Chloride Carbon Dioxide Anion Gap BUN Creatinine Estim Creat Clear Calc Est GFR (MDRD) Af Amer Est GFR (MDRD) Non-Af BUN/Creatinine Ratio Glucose Calcium Magnesium POC Glucose 155 H 233 H 05/18/20 05/18/20 05/18/20 04:54 04:54 06:41 WBC RBC Hgb Hct MCV MCH MCHC RDW Std Deviation RDW Coeff of Geovanna Plt Count MPV PT 24.8 H INR 2.3 Sodium 129 L Potassium 4.3 Chloride 95 L Carbon Dioxide 27.0 Anion Gap 7 BUN 66 H Creatinine 1.75 H Estim Creat Clear Calc 27.60 Est GFR (MDRD) Af Amer 37 L Est GFR (MDRD) Non-Af 30 L BUN/Creatinine Ratio 37.7 H Glucose 126 H Calcium 8.5 Magnesium 1.9 POC Glucose 136 H 05/18/20 05/18/20 05/18/20 11:32 16:29 22:10 WBC RBC Hgb Hct MCV MCH MCHC RDW Std Deviation RDW Coeff of Geovanna Plt Count MPV PT INR Sodium Potassium Chloride Carbon Dioxide Anion Gap BUN Creatinine Estim Creat Clear Calc Est GFR (MDRD) Af Amer Est GFR (MDRD) Non-Af BUN/Creatinine Ratio Glucose Calcium Magnesium POC Glucose 287 H 211 H 134 H 05/19/20 05/19/20 05/19/20 06:32 07:08 07:08 WBC RBC Hgb Hct MCV MCH MCHC RDW Std Deviation RDW Coeff of Geovanna Plt Count MPV PT 26.9 H INR 2.5 Sodium 128 L Potassium 4.4 Chloride 96 L Carbon Dioxide 26.0 Anion Gap 6 BUN 70 H Creatinine 1.84 H Estim Creat Clear Calc 26.25 Est GFR (MDRD) Af Amer 35 L Est GFR (MDRD) Non-Af 29 L BUN/Creatinine Ratio 38.0 H Glucose 127 H Calcium 8.2 L Magnesium POC Glucose 122 H 05/19/20 11:14 WBC RBC Hgb Hct MCV MCH MCHC RDW Std Deviation RDW Coeff of Geovanna Plt Count MPV PT INR Sodium Potassium Chloride Carbon Dioxide Anion Gap BUN Creatinine Estim Creat Clear Calc Est GFR (MDRD) Af Amer Est GFR (MDRD) Non-Af BUN/Creatinine Ratio Glucose Calcium Magnesium POC Glucose 273 H Clinical Impression(s) from Imaging Studies Chest X-Ray 05/04/20 12:55 IMPRESSION: No change in acute or chronic interstitial lung disease. Interval resolution of left lower lobe pneumonia or atelectasis. Electronically Signed: Clifton Garza MD at 13:17 EST Tel , Service support , Chest X-Ray 05/05/20 05:55 IMPRESSION: Chronic interestitial changes. Additional airspace the likely representing pneumonia, similar in severity to the previous study . at 0507 Reported and signed by: Barry Alejo MD Electronically Signed: Barry Alejo MD at 5:06 EST Tel , Service support , Chest X-Ray 05/14/20 07:31 IMPRESSION: Unfavorable change. Bilateral reticular and groundglass opacities have progressed suggesting pneumonia (including viral causes) or pulmonary edema. 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 Electronically Signed: Wolf Ramirez MD ([place]) at 14:07 EST , Service support , Chest X-Ray 05/18/20 06:45 IMPRESSION: Since prior study, there has been a progression of the bilateral pulmonary infiltrates in a preferential peripheral distribution. Electronically Signed: Dany Crabtree, at 8:44 EST , Service support , Current Medications Acetaminophen (Acetaminophen 325 Mg Tablet) 650 mg PO Q6H PRN PRN PRN Reason: Pain Score 1-10/Temp > 100.7 F Last Admin: 05/09/20 00:59 Dose: 650 mg Documented by: Al Hydroxide/Mg Hydroxide (Mag Hydrox/Al Hydrox/Simeth 30 Ml Udc) 30 ml PO Q6H PRN PRN PRN Reason: Gastric Burning Albuterol Sulfate (Albuterol Sulfate 8 Gm Inhaler (60 Puffs)) 1 puff INHALATION Q4H PRN PRN PRN Reason: SOB/Wheezing Last Admin: 05/06/20 05:19 Dose: 1 puff Documented by: Allopurinol (Allopurinol 100 Mg Tablet) 100 mg PO BID [facility] Last Admin: 05/18/20 20:04 Dose: 100 mg Documented by: Amlodipine Besylate (Amlodipine 5 Mg Tablet) 5 mg PO QHS [facility] Last Admin: 05/18/20 20:03 Dose: 5 mg Documented by: Carvedilol (Carvedilol 6.25 Mg Tablet) 6.25 mg PO BID [facility] Last Admin: 05/18/20 20:03 Dose: 6.25 mg Documented by: Clopidogrel Bisulfate (Clopidogrel Bisulfate 75 Mg Tablet) 75 mg PO DAILY [facility] Last Admin: 05/18/20 09:08 Dose: 75 mg Documented by: Docusate Sodium (Docusate Sodium 100 Mg Capsule) 100 mg PO BID PRN PRN PRN Reason: Constipation Last Admin: 05/09/20 00:59 Dose: 100 mg Documented by: Furosemide (Furosemide 40 Mg Tablet) 40 mg PO DAILY [facility] Last Admin: 05/18/20 09:08 Dose: 40 mg Documented by: Gabapentin (Gabapentin 300 Mg Capsule) 300 mg PO BID [facility] Last Admin: 05/18/20 20:03 Dose: 300 mg Documented by: Guaifenesin (Guaifenesin 10 Ml Udc (200mg/10ml)) 10 ml PO Q4H PRN PRN PRN Reason: COUGH Last Admin: 05/17/20 05:48 Dose: 10 ml Documented by: Sodium Chloride () 250 mls @ 15 mls/hr IV .[id number] PRN PRN Reason: Saline Flush Last Infusion: 05/06/20 06:05 Dose: 0 mls/hr Documented by: Sodium Chloride () 250 mls @ 15 mls/hr IV .[id number] PRN PRN Reason: Additional IVPB Infusion Insulin Glargine (Insulin Glargine 100 Units/Ml Pen) 10 units SC BID [facility] Last Admin: 05/18/20 22:10 Dose: 10 units Documented by: Insulin Human Lispro (Insulin Lispro 100 Unit/Ml Insuln.Pen) 0 unit SC ACHS [facility]; Protocol Last Admin: 05/19/20 06:34 Dose: Not Given Documented by: Melatonin (Melatonin 3 Mg Tablet) 3 mg PO QHS PRN PRN PRN Reason: INSOMNIA Last Admin: 05/15/20 21:25 Dose: 3 mg Documented by: Miscellaneous Information (Inhaler, Assist Devices 1 Each Spacer) 1 each INHALATION Q4HWA PRN PRN Reason: INHALER USE Morphine Sulfate (Morphine 2 Mg/Ml Syringe) 2 mg IV Q3H PRN PRN PRN Reason: Pain Score 6-10 Nystatin (Nystatin Powder 15gm Bottle) 1 applic TOPICAL BID [facility]; Protocol Last Admin: 05/18/20 20:03 Dose: 1 applicatio Documented by: Ondansetron HCl (Ondansetron 4 Mg/2 Ml Vial) 4 mg IV Q8H PRN PRN PRN Reason: NAUSEA/VOMITING Last Admin: 05/17/20 10:29 Dose: 4 mg Documented by: Pantoprazole Sodium (Pantoprazole Sodium 40 Mg Tablet) 40 mg PO DAILY [facility] Last Admin: 05/18/20 09:08 Dose: 40 mg Documented by: Pravastatin Sodium (Pravastatin 80 Mg Tablet) 80 mg PO QHS [facility] Last Admin: 05/18/20 20:03 Dose: 80 mg Documented by: Sertraline HCl (Sertraline 100 Mg Tablet) 100 mg PO DAILY [facility] Last Admin: 05/18/20 09:08 Dose: 100 mg Documented by: Sodium Chloride (0.9% Saline Lock 10 Ml Syringe) 10 - 40 ml IV UD PRN PRN Reason: SALINE FLUSH Last Admin: 05/17/20 10:28 Dose: 10 ml Documented by: Sodium Chloride (Sodium Chloride 0.65% 1 [place].Btl) 1 spray NASAL TID PRN PRN PRN Reason: NASAL DRYNESS Last Admin: 05/11/20 21:46 Dose: 1 spray Documented by: Throat Lozenges (Benzocaine/Menthol 1 Lozenge) 1 lozenge MUCOUS MEM Q2H PRN PRN PRN Reason: SORE THROAT Last Admin: 05/18/20 22:08 Dose: 1 lozenge Documented by: Warfarin Sodium (Warfarin 1 Mg Tablet) 1 mg PO DAILY@1700 AMBAR Last Admin: 05/18/20 16:32 Dose: 1 mg Documented by: Medical Necessity - Tobacco Use Smoking Status: Former smoker Tobacco Use: Cigarettes Assessment/Plan All Active Problems (Last Reviewed 05/04/20 @ 14:[address] Daphne Patel, DO) CHF exacerbation (Acute) Non-ST elevation myocardial infarction (NSTEMI) (Acute) CHF (congestive heart failure) (Acute) Cardiomyopathy (Acute) COVID-19 (Acute) Acute respiratory failure (Acute) NSTEMI (non-ST elevated myocardial infarction) (Resolved) RECOMMENDATIONS: 1. Continue to wean FiO2 to maintain oxygen saturations at or above 90%. 2. Continue gentle diuresis as tolerated by hemodynamics and renal function. 3. Continue Coumadin and check INR daily. 4. Mobilize patient as tolerated. IMPRESSIONS: 1. Acute on chronic hypoxemic respiratory failure secondary to combined decompensated heart failure and COVID-19 pneumonia The patient will be continued on BiPAP therapy as tolerated with goals to wean her FiO2 to maintain oxygen saturations at or above 90%. The patient has already completed treatment courses of remdesivir and Decadron. She will remain on Lasix as tolerated by hemodynamics and renal function. 2. Acute on chronic kidney disease Improved. Continue attempts at gentle diuresis as tolerated by renal function. 3. History of ischemic cardiomyopathy/hypertension/hyperlipidemia/peripheral vascular disease/diabetes mellitus/questionable COPD/obesity Complicates care, management, recovery and prognosis. Continue home medications as tolerated. Continue Coumadin and check INR daily. This note was generated with [employer] dictation software. It may contain incorrect words, spelling, and punctuation that were not noted in checking the note before signing. Inpatient E&M: 70673 Subs Hosp L2
[2020-05-19 07:30] LABS: International Normalized Ratio 2.5; Prothrombin Time (Protime)PT. 26.9 SECONDS (11.7-14.9)
[2020-05-19 07:47] LABS: Anion Gap 6 (5-15); BUN 70 mg/dL (7-18); Calcium,Total 8.2 mg/dL (8.5-10.1); Chloride 96 mmol/L (98-107); Creatinine, Serum 1.84 mg/dL (0.55-1.02); EST Glomerular Filtration Rate 29 mL/min (>60); Est Glom Filt Rate - Afr Amer 35 mL/min (>60); Estimated Creatinine Clearance 26.25 ml/min; Glucose 127 mg/dL (74-106); Potassium 4.4 mmol/L (3.5-5.1); Sodium Level 128 mmol/L (136-145)
--- NOTE | 2020-05-19 08:19 | PN_ITS ---
Patient Problems: Active and Suspected Problems (Last Reviewed 05/04/20 @ 14:[address] Daphne Patel, DO) CHF exacerbation (Acute) Non-ST elevation myocardial infarction (NSTEMI) (Acute) Cardiomyopathy (Acute) COVID-19 (Acute) Acute respiratory failure (Acute) Reason for Visit: Acute Hypoxic respiratory failure Subjective: Patient is a 70-year-old lady who is been on admission for 2 weeks for COVID-19 pneumonia. Patient had to be placed on airvo during the evening. On Lasix dose adjusted this a.m. due to worsening kidney function 05/19/2020; patient tolerated BiPAP during the night. Kidney function continues to worsen. Discontinued Lasix. Awaiting insurance precertification prior to patient being transferred to LTAC Objective: GENERAL: cooperative HEENT: Atraumatic; EYES; Anicteric, Normal Conjunctiva NECK; supple, normal thyroid, RESPIRATORY: Diminished to auscultation CARDIOVASCULAR: Regular S1 S2, GI: soft, normoactive bowel sounds, : No Renal angle tenderness; EXTREMITIES: No edema, no clubbing, MUSCULOSKELETAL: no muscle waisting NEURO: Awake; no lateralizing signs. SKIN: No Rash PSYCH; Flat affect Vitals/I&O's: Vital Signs Temp Pulse Resp BP Pulse Ox 97.2 F L 63 20 H 127/63 H 95 05/19/20 06:33 05/19/20 06:59 05/19/20 06:33 05/19/20 06:33 05/19/20 06:33 Oxygen Flow Rate (L/min) 60 Oxygen Delivery Method Bi-pap Weight: 82 kg Body Mass Index (BMI) 30.5 Intake and Output for Last 24 Hours 05/17/20 05/18/20 05/19/20 23:59 23:59 23:59 Intake Total 650 / 700 1500 / 1500 50 / 50 Output Total 750 / 1050 550 / 550 225 / 225 Balance -100 / -350 950 / 950 -175 / -175 Laboratory Results 05/18/20 11:32: POC Glucose 287 H 05/18/20 16:29: POC Glucose 211 H 05/18/20 22:10: POC Glucose 134 H 05/19/20 06:32: POC Glucose 122 H 05/19/20 07:08: Sodium 128 L, Potassium 4.4, Chloride 96 L, Carbon Dioxide 26.0, Anion Gap 6, BUN 70 H, Creatinine 1.84 H, Estim Creat Clear Calc 26.25, Est GFR (MDRD) Af Amer 35 L, Est GFR (MDRD) Non-Af 29 L, BUN/Creatinine Ratio 38.0 H, Glucose 127 H, Calcium 8.2 L 05/19/20 07:08: PT 26.9 H, INR 2.5 Current Medications Acetaminophen (Acetaminophen 325 Mg Tablet) 650 mg PO Q6H PRN PRN PRN Reason: Pain Score 1-10/Temp > 100.7 F Last Admin: 05/09/20 00:59 Dose: 650 mg Documented by: Al Hydroxide/Mg Hydroxide (Mag Hydrox/Al Hydrox/Simeth 30 Ml Udc) 30 ml PO Q6H PRN PRN PRN Reason: Gastric Burning Albuterol Sulfate (Albuterol Sulfate 8 Gm Inhaler (60 Puffs)) 1 puff INHALATION Q4H PRN PRN PRN Reason: SOB/Wheezing Last Admin: 05/06/20 05:19 Dose: 1 puff Documented by: Allopurinol (Allopurinol 100 Mg Tablet) 100 mg PO BID [facility] Last Admin: 05/18/20 20:04 Dose: 100 mg Documented by: Amlodipine Besylate (Amlodipine 5 Mg Tablet) 5 mg PO QHS [facility] Last Admin: 05/18/20 20:03 Dose: 5 mg Documented by: Carvedilol (Carvedilol 6.25 Mg Tablet) 6.25 mg PO BID [facility] Last Admin: 05/18/20 20:03 Dose: 6.25 mg Documented by: Clopidogrel Bisulfate (Clopidogrel Bisulfate 75 Mg Tablet) 75 mg PO DAILY [facility] Last Admin: 05/18/20 09:08 Dose: 75 mg Documented by: Docusate Sodium (Docusate Sodium 100 Mg Capsule) 100 mg PO BID PRN PRN PRN Reason: Constipation Last Admin: 05/09/20 00:59 Dose: 100 mg Documented by: Gabapentin (Gabapentin 300 Mg Capsule) 300 mg PO BID [facility] Last Admin: 05/18/20 20:03 Dose: 300 mg Documented by: Guaifenesin (Guaifenesin 10 Ml Udc (200mg/10ml)) 10 ml PO Q4H PRN PRN PRN Reason: COUGH Last Admin: 05/17/20 05:48 Dose: 10 ml Documented by: Sodium Chloride () 250 mls @ 15 mls/hr IV .[id number] PRN PRN Reason: Saline Flush Last Infusion: 05/06/20 06:05 Dose: 0 mls/hr Documented by: Sodium Chloride () 250 mls @ 15 mls/hr IV .[id number] PRN PRN Reason: Additional IVPB Infusion Insulin Glargine (Insulin Glargine 100 Units/Ml Pen) 10 units SC BID [facility] Last Admin: 05/18/20 22:10 Dose: 10 units Documented by: Insulin Human Lispro (Insulin Lispro 100 Unit/Ml Insuln.Pen) 0 unit SC ACHS [facility]; Protocol Last Admin: 05/19/20 06:34 Dose: Not Given Documented by: Melatonin (Melatonin 3 Mg Tablet) 3 mg PO QHS PRN PRN PRN Reason: INSOMNIA Last Admin: 05/15/20 21:25 Dose: 3 mg Documented by: Miscellaneous Information (Inhaler, Assist Devices 1 Each Spacer) 1 each INHALATION Q4HWA PRN PRN Reason: INHALER USE Morphine Sulfate (Morphine 2 Mg/Ml Syringe) 2 mg IV Q3H PRN PRN PRN Reason: Pain Score 6-10 Nystatin (Nystatin Powder 15gm Bottle) 1 applic TOPICAL BID [facility]; Protocol Last Admin: 05/18/20 20:03 Dose: 1 applicatio Documented by: Ondansetron HCl (Ondansetron 4 Mg/2 Ml Vial) 4 mg IV Q8H PRN PRN PRN Reason: NAUSEA/VOMITING Last Admin: 05/17/20 10:29 Dose: 4 mg Documented by: Pantoprazole Sodium (Pantoprazole Sodium 40 Mg Tablet) 40 mg PO DAILY [facility] Last Admin: 05/18/20 09:08 Dose: 40 mg Documented by: Pravastatin Sodium (Pravastatin 80 Mg Tablet) 80 mg PO QHS [facility] Last Admin: 05/18/20 20:03 Dose: 80 mg Documented by: Sertraline HCl (Sertraline 100 Mg Tablet) 100 mg PO DAILY [facility] Last Admin: 05/18/20 09:08 Dose: 100 mg Documented by: Sodium Chloride (0.9% Saline Lock 10 Ml Syringe) 10 - 40 ml IV UD PRN PRN Reason: SALINE FLUSH Last Admin: 05/17/20 10:28 Dose: 10 ml Documented by: Sodium Chloride (Sodium Chloride 0.65% 1 [place].Btl) 1 spray NASAL TID PRN PRN PRN Reason: NASAL DRYNESS Last Admin: 05/11/20 21:46 Dose: 1 spray Documented by: Throat Lozenges (Benzocaine/Menthol 1 Lozenge) 1 lozenge MUCOUS MEM Q2H PRN PRN PRN Reason: SORE THROAT Last Admin: 05/18/20 22:08 Dose: 1 lozenge Documented by: Warfarin Sodium (Warfarin 1 Mg Tablet) 1 mg PO DAILY@1700 AMBAR Last Admin: 05/18/20 16:32 Dose: 1 mg Documented by: STROKE Vital Signs/Narrative: Vital Signs Temp Pulse Resp BP Pulse Ox 05/19/20 06:59 63 05/19/20 06:33 97.2 F L 74 20 H 127/63 H 95 05/19/20 05:18 92 14 94 Medical Necessity - Tobacco Use Smoking Status: Former smoker Tobacco Use: Cigarettes Assessment/Plan All Active Problems (Last Reviewed 05/04/20 @ 14:[address] Daphne Patel, DO) CHF exacerbation (Acute) Non-ST elevation myocardial infarction (NSTEMI) (Acute) CHF (congestive heart failure) (Acute) Cardiomyopathy (Acute) COVID-19 (Acute) Acute respiratory failure (Acute) NSTEMI (non-ST elevated myocardial infarction) (Resolved) Patient is a 70-year-old lady admitted with progressive shortness of breath diagnosed with acute COVID-19 pneumonia 1. Acute hypoxic respiratory failure due to combination of COVID-19 pneumonia as well as CHF - ?05/16/2020; patient seen still requiring high flow oxygen. - 05/17/20; patient still requires high flow oxygen however she has not been wearing the oxygen consistently. Plan is for patient to be assessed for home oxygen needs with possibility of patient being discharged home with home oxygen. She has been offered SNF versus LTAC patient declined. -05/18/20; patient respiratory status deteriorated resulting in patient being placed on flow oxygen Airvo - 05/19/2020; patient tolerated BiPAP during the night. Awaiting insurance precertification prior to patient being transferred to LTAC 2. Acute COVID-19 pneumonia ?Patient finished a course of dexamethasone and remdesivir 3. Acute on chronic congestive heart failure with reduced ejection fraction -Patient is on Lasix -05/18/2020 adjusted dose of Lasix in view of worsening kidney function -05/19/2020; Kidney function continues to worsen. Discontinued Lasix 4. Coumadin induced coagulopathy ?Coumadin on hold monitoring INR 5. Chronic kidney disease stage III ?Kidney function at baseline - slight worsening of kidney function. Lasix dose adjusted as discussed above. 6. Coronary artery disease ?With previous history of non-STEMI 7. Ischemic cardiomyopathy ?With EF of 5% 8. Diabetes mellitus type II -patient's oral hypoglycemics held. -Placed on long acting insulin, Accu-Cheks a.c. and at bedtime and covered with sliding scale insulin 9. Hyponatremia ?Secondary to fluid overload status from patient CHF patient receiving diuresis with subsequent monitoring of electrolyte 10. Physical deconditioning - Requested for PT OT eval and manager social responsibility to assist with discharge planning -05/18/2020; patient had initially declined being discharged to SNF versus LTAC however did discuss with patient about at least considering LTAC to wean her off oxygen prior to going home 11. DVT prophylaxis -patient is on Coumadin Inpatient E&M: [id number] Subs Hosp L2
[2020-05-19] MEDS: Pantoprazole Sodium 40 MG Tablet PO (10:47)
[2020-05-19] MEDS: Clopidogrel Bisulfate 75 MG Tablet PO (10:47)
[2020-05-19] MEDS: Gabapentin 300 MG Capsule PO ×2 (10:47→21:43)
[2020-05-19] MEDS: Allopurinol 100 MG Tablet PO ×2 (10:48→21:43)
[2020-05-19] MEDS: Sertraline 100 MG Tablet PO (10:48)
[2020-05-19] MEDS: Nystatin Powder 15gm Bottle 1 APPLIC TOPICAL ×2 (10:49→21:44)
[2020-05-19 11:25] LABS: Bedside Glucose 273 mg/dL (70-110)
--- NOTE | 2020-05-19 11:53 | CASEMGMT ---
LOIS KRAUSE NOTE: Updated clinical faxed to [facility] at this time. Call placed to Kaci @ [facility]. She states pre-cert is still pending, but she anticipates they will get it today, although they may not be able to accept pt today d/t staffing. Dr Ybarra made aware. Patito BAHENAN LOIS CM
[2020-05-19] MEDS: Insulin Lispro 100 UNIT/ML INSULN.PEN SC ×2 (12:18→21:47)
--- NOTE | 2020-05-19 12:24 | NURSING ---
provided with drink of water
[2020-05-19 16:55] LABS: Bedside Glucose 136 mg/dL (70-110)
--- NOTE | 2020-05-19 17:38 | CASEMGMT ---
LOIS KRAUSE NOTE: Call placed to Kaci @ [facility]. She states insurance approval is still pending, but she anticipates they may still receive it this evening. She was informed pt has been on BIPAP for most of the day, as she is not tolerating Airvo well. She states they will not accept pt if she is requiring BIPAP continuously and not able to tolerate Airvo. They do take admissions over the weekend and she states she will be in contact with charge nurse over the weekend if pre-cert is obtained and to inquire if pt is tolerating Airvo. Dr Ybarra made aware of all of the above. Call placed to pt's room and she was notified that insurance approval to go to [facility] is still pending. She states she has not informed her of plan for her to go to [facility] and asks this RN JIMI to notify him. Call placed to pt's , Walter. He was made aware of discharge plans to [facility] once pt medically ready and that insurance approval is pending. Questions answered and he was provided with their phone number. He was made aware [facility] is also not allowing visitors. He asks to be notified when pt is ready to be transferred. LOIS Serna,made aware. Discharge plan: [facility] if pre-cert is obtained and when pt is medically ready (tolerating Airvo). Green sheet placed on chart for instructions to transfer to [facility]. Kaci--intake liaison @ [facility]: [phone] for any questions re: intake/acceptance. Phone number for nurse to nurse report: [phone] Fax d/c summary, transfer to extended facility instructions, and medication list to [phone]. Patito BAHENAN LOIS CM
[2020-05-19] MEDS: MELATONIN 3 MG TABLET PO (21:43)
[2020-05-19] MEDS: Pravastatin 80 MG Tablet PO (21:43)
[2020-05-19] MEDS: Carvedilol 6.25 MG Tablet PO (21:43)
[2020-05-19] MEDS: amLODIPine 5 MG Tablet PO (21:43)
[2020-05-19 22:05] LABS: Bedside Glucose 153 mg/dL (70-110)
[2020-05-20] VITALS (14 sets, daily range): BP systolic 70–107; BP diastolic 23–67; PULSE 70–81; RESP 12–33; TEMP 36.1–37; O2SAT 47–94
--- NOTE | 2020-05-20 02:10 | NURSING ---
Respiratory notified of MD order to place pt on AVAPS settings
--- NOTE | 2020-05-20 03:20 | NURSING ---
nursing retread supervisor notified that pt talked with Dr. Shah and has stated she wants to be a full code and wants intubation if needed. wants pt to be transferred to icu. primer charger in with pt and states she wants her son notified of transfer. primary rn aware pt wants her son notified. primer charger packed personal items. cps to assist primary rn with transfer/bipap machine.
--- NOTE | 2020-05-20 03:30 | NURSING ---
pt recieved to room, placed on monitor. lungs clear, diminished. pt denies pain at this time.
[2020-05-20 04:06] LABS: Allen Test Positive; Base Excess -1 mmol/L (-2 to +2); Bicarbonate 23.5 mmol/L (22-26); Blood Gas Specimen Type ART; FI02 100; O2 Delivery Device BiPAP; PEEP 14; PO2 36 mmHG (75-100); RR 12; SITE L Radial; SO2 71 % (95-99); Total Carbon Dioxide 25 mmol/L; Vt 450; pCO2 35.9 mmHg (35-45); pH 7.42 (7.35-7.45)
--- NOTE | 2020-05-20 04:29 | NURSING ---
pt spoke with and son via telephone. plan of care explained to both.
[2020-05-20] MEDS: 0.9% Saline Lock 10 ML Syringe IV (04:34)
[2020-05-20] MEDS: Succinylcholine Chloride 200 MG/10 ML Vial 100 MG IV (04:45)
[2020-05-20] MEDS: Etomidate 20 MG/10 ML Vial IV (04:45)
--- NOTE | 2020-05-20 04:45 | NURSING ---
etomidate and succicholine given per Dr beltran. 0453 7.5 ett placed, 25cm at lip, color change noted. pt placed on \vent per PSN
--- NOTE | 2020-05-20 05:02 | RAD_ITS ---
STUDY: X-RAY CHEST REASON FOR EXAM: Female, 70 years old. ETT placement #1 TECHNIQUE: Single AP portable view of the chest. COMPARISON: 05/18/2020 FINDINGS: Interval placement of endotracheal tube with the tip approximately 4 cm above the phillip. Interval placement of nasogastric tube with the tip below the diaphragm. No change in the alveolar opacities in both lungs consistent with bilateral pneumonia. There is no demonstrated pleural abnormality. Normal size heart. Normal mediastinum and mignon. Normal visualized pulmonary arteries. Normal visualized aortic arch and descending thoracic aorta. Normal visualized thoracic spine. Normal visualized ribs, clavicles, and shoulders. There is no demonstrated abnormality of the visualized soft tissue structures of the upper abdomen. RAD/Chest 1 View (Portable) IMPRESSION: 1. Interval placement of endotracheal tube with the tip approximately 4 cm above the phillip. 2. Interval placement of nasogastric tube with the tip below the diaphragm. 3. No change in bilateral pneumonia. Electronically Signed: Clifton Garza MD at 6:50 EST Tel , Service support ,
[2020-05-20] MEDS: Propofol 10MG/Ml 1,000 MG/100 ML Bottle 4.9 MG CONT INF (05:05)
--- NOTE | 2020-05-20 05:06 | PN_ITS ---
Progress Note Endotracheal Intubation Note Indication: Respiratory Distress Performed by: Dr. Harlan Shah The patient was placed in a supine position. RSI was done using Etomidate 20MG and succinylcholine 1mg/kg. The patient was transitioned from BiPAP to Glidescope intubation. Glidescope was inserted into the oropharynx at which time there was a Grade 1 view of the vocal cords. A 7.5-greenlandic endotracheal tube was inserted and visualized going through the vocal cords. The stylette was removed and cuff was inflated. Colorimetric change was visualized on the CO2 detector. Breath sounds were heard equally in both lung johnson. The endotracheal tube was placed at 24 cm, measured at the lips. A STAT chest x-ray was ordered to verify endotracheal tube placement. Because patient continued to have hypoxia ET tube was pulled back by 2 cm. Repeat chest x-ray showed ET tube in trachea. Initial chest x-ray showed ET tube in trachea but slightly tilted to the right. Await official interpretation of CXR by by radiologist. Critical Care Notes: Patient was initially at medical surgical unit on BiPAP. Patient continued to have hypoxia and tachypnea requiring patient to be transitioned from BiPAP to AVAPS. Patient stated initially that she did not want to be intubated. Patient was seen and examined at bedside. It was discussed the patient that her condition was critical and she should clarify CODE STATUS. Patient stated that she is okay with intubation if that is the last resort. Patient was transferred to the intensive care unit. Patient was on AVAPS but she continued to have low oxygen saturation. She continues to have tachypnea. Physical examination. Patient lethargic on AVAPS. Tachypnea. S1-S2 present. Lungs clear to auscultation. Abdomen soft nontender bowel sounds present. Extremities no edema. Acute hypoxemic respiratory failure Patient was intubated. Patient was placed on propofol and fentanyl for sedatio n. After intubation patient was not synchronizing with vent. Her blood pressure dropped. Propofol was the de-escalated and stopped. Normal saline bolus was ordered. Fine Arts Chair arrived to the ICU and signout given to odd ticket clerk. Critical care time 75 minutes from 05/20/2020 4am to 5:50am Critical care time was outside procedure. Critical care time involved discussion with patient and nurses; review of charts and bed side examination. STROKE Vital Signs/Narrative: Vital Signs Temp Pulse Resp BP BP Pulse Ox 05/20/20 03:41 98.6 F 77 33 H 87/67 L 85 05/20/20 03:40 84 05/20/20 03:00 97 F L 75 30 H 90/36 L 88 05/20/20 02:24 75 32 H 89 05/20/20 02:00 97.3 F L 72 31 H 97/36 L 92 05/20/20 01:40 97.2 F L 74 29 H 100/33 L 93 Procedures: 51489 Insert Emergency Airway Multi Select Codes - Hospitalists' Procedures Procedures: 62694 Insert Emergency Airway, 51714 Critial Care Addl 30 Min
--- NOTE | 2020-05-20 05:09 | NURSING ---
NG placed, placement verified with air bolus, gastri contents. CXR ordered.
--- NOTE | 2020-05-20 05:25 | NURSING ---
cxr being done, pt desatted to 54% during xray, pt bagged, OG tube xray aborted at this time. Dr Shah paged
--- NOTE | 2020-05-20 05:30 | RAD_ITS ---
STUDY: X-RAY - ABDOMEN/PELVIS REASON FOR EXAM: Female, 70 years old. OG tube placement. TECHNIQUE: Single AP view of the abdomen / pelvis. COMPARISON: None. FINDINGS: Nasogastric tube with tip in the left upper quadrant likely in the body the stomach. Status post cholecystectomy. There is an unremarkable bowel gas pattern. The visualized liver, spleen and kidneys are grossly normal in size and morphology. Normal soft tissue structures. Status post transpedicular fixation lower lumbar spine. RAD/Abdomen Single View (Portable) IMPRESSION: 1. Nasogastric tube in the left upper quadrant likely in the body the stomach. 2. No bowel obstruction. Electronically Signed: Clifton Garza MD at 6:50 EST Tel , Service support ,
--- NOTE | 2020-05-20 05:30 | RAD_ITS ---
STUDY: X-RAY CHEST REASON FOR EXAM: Female, 70 years old. ETT placement #2. TECHNIQUE: Single AP portable view of the chest. COMPARISON: 05/20/2019 05/09/2009 FINDINGS: Interval retraction of the endotracheal tube the tip approximate centimeters above the phillip. Nasogastric tube which is unchanged. No change in alveolar opacities in both lungs consistent with bilateral pneumonia. There is no demonstrated pleural abnormality. Normal size heart. Normal mediastinum and mignon. Normal visualized pulmonary arteries. Normal visualized aortic arch and descending thoracic aorta. Normal visualized thoracic spine. Normal visualized ribs, clavicles, and shoulders. There is no demonstrated abnormality of the visualized soft tissue structures of the upper abdomen. RAD/Chest 1 View (Portable) IMPRESSION: 1. Interval retraction of endotracheal tube with the tip approximate centimeters above the phillip. 2. Nasogastric tube which is unchanged. 3. No change in bilateral pneumonia. Electronically Signed: Clifton Garza MD at 6:52 EST Tel , Service support ,
--- NOTE | 2020-05-20 05:34 | MDS.RN ---
Dr Shah at bedside, ordered ETT out 2cm, tube pulled out to 23cm at lip
--- NOTE | 2020-05-20 05:36 | NURSING ---
fentanyl at 200mcg, propofol to 50mcg
--- NOTE | 2020-05-20 05:36 | NURSING ---
bp 109/28, 84, being bagged with 15lpm bvm, all sedation maxed per Dr Shah verbal order.
--- NOTE | 2020-05-20 05:39 | PN_ITS ---
Subjective: The patient was seen and examined at the bedside this morning. Events from the last 24 hours have been reviewed. The patient was transferred to the medical intensive care unit earlier this morning and subsequently intubated over concerns for respiratory distress. On my arrival to the patient's room this morning, she was saturating in the 40s and was hypotensive. The patient's ventilator mode and settings were adjusted and the patient was started on vasopressor support. In addition, I placed a central venous catheter to facilitate vasoactive medication delivery. I also spoke with the patient's , who presented to the hospital this morning and updated him on the patient's overall clinical state. At this time, he wishes to continue full supportive measures, but is agreeable to transitioning her to DNR CCA. Central Venous Catheter Indication: Hypotension, requiring vasopressor administration Consent was obtained from: A time-out was completed verifying correct patient, procedure, site, positioning, and special equipment if applicable. The patient was placed in a dependent position appropriate for central line placement based on the vein to be cannulated. The patient's right IJ was prepped and draped in a sterile fashion. 1% lidocaine was used to anesthetize the surrounding skin area. A triple-lumen catheter was introduced into the right internal jugular vein using the Seldinger technique and under ultrasound guidance. The catheter was threaded smoothly over the guidewire and appropriate blood return was obtained. Each lumen of the catheter was evacuated of air and flushed with sterile saline. The catheter was then sutured in place to the skin and a sterile dressing appl ied. Chest x-ray to confirm appropriate positioning is pending. ULTRASOUND GUIDANCE STATEMENT (Vascular Access): I performed ultrasound image acquisition and interpretation for needle placement during the procedure. The vessel was identified and found to be free of thrombosis by compression technique. A safe point of entry was marked at the skin in an angle for axis was determined. The needle was guided by obtaining free-flowing fluid and by real-time visualization. Objective: The patient's most recent lab work, culture data and imaging studies have all been personally reviewed. Surface echocardiogram from April 2020 revealed severe segmental systolic dysfunction with an ejection fraction of 25%. Right ventricular systolic pressure was estimated to be 35 mmHg. Coronavirus PCR was positive on May 04. General: - - Intubated, sedated and mechanically ventilated. Occasional ventilator dyssynchrony noted. HEENT: Atraumatic, PERRLA, Normocephalic Oral: Dry Mucosa, - - Endotracheal and OG tubes in place Lungs: Diminished, Tachypneic Cardiovascular: Regular rate, Regular Rhythm Abdomen: Bowel Sounds Present, Soft, Non Tender Extremities: No clubbing, No cyanosis, No edema Skin: - - No significant change from previous Musculoskeletal: No Muscle Wasting Lymphatic: No Cervical, Supraclavicular, or Inguinal Adenopathy Neurological: - - No focal neurological deficits. Heavily sedated now on the ventilator. Vital Signs Temp Pulse Resp BP Pulse Ox 98.6 F 77 33 H 87/67 L 85 05/20/20 03:41 05/20/20 03:41 05/20/20 03:41 05/20/20 03:41 05/20/20 03:41 Oxygen Flow Rate (L/min) 60 Oxygen Delivery Method Bi-pap Weight: 180 lb 12.465 oz Body Mass Index (BMI) 30.5 Intake and Output for Last 24 Hours 05/18/20 05/19/20 05/20/20 23:59 23:59 23:59 Intake Total 1500 / 1500 50 / 290 240 / 240 Output Total 550 / 550 225 / 225 Balance 950 / 950 -175 / 65 240 / 240 Labs (Last 48 Hours) 05/18/20 05/18/20 05/18/20 06:41 11:32 16:29 PT INR Specimen Type Sample Site pH Bicarbonate Actual Total CO2 Base Excess O2 Saturation O2 % ABG pCO2 ABG pO2 Johnny Test Respiration Rate O2 Delivery Device Tidal Volume POC PEEP Sodium Potassium Chloride Carbon Dioxide Anion Gap BUN Creatinine Estim Creat Clear Calc Est GFR (MDRD) Af Amer Est GFR (MDRD) Non-Af BUN/Creatinine Ratio Glucose Calcium POC Glucose 136 H 287 H 211 H 05/18/20 05/19/20 05/19/20 22:10 06:32 07:08 PT INR Specimen Type Sample Site pH Bicarbonate Actual Total CO2 Base Excess O2 Saturation O2 % ABG pCO2 ABG pO2 Johnny Test Respiration Rate O2 Delivery Device Tidal Volume POC PEEP Sodium 128 L Potassium 4.4 Chloride 96 L Carbon Dioxide 26.0 Anion Gap 6 BUN 70 H Creatinine 1.84 H Estim Creat Clear Calc 26.25 Est GFR (MDRD) Af Amer 35 L Est GFR (MDRD) Non-Af 29 L BUN/Creatinine Ratio 38.0 H Glucose 127 H Calcium 8.2 L POC Glucose 134 H 122 H 05/19/20 05/19/20 05/19/20 07:08 11:14 16:17 PT 26.9 H INR 2.5 Specimen Type Sample Site pH Bicarbonate Actual Total CO2 Base Excess O2 Saturation O2 % ABG pCO2 ABG pO2 Johnny Test Respiration Rate O2 Delivery Device Tidal Volume POC PEEP Sodium Potassium Chloride Carbon Dioxide Anion Gap BUN Creatinine Estim Creat Clear Calc Est GFR (MDRD) Af Amer Est GFR (MDRD) Non-Af BUN/Creatinine Ratio Glucose Calcium POC Glucose 273 H 136 H 05/19/20 05/20/20 21:46 03:58 PT INR Specimen Type ART Sample Site L Radial pH 7.42 Bicarbonate Actual 23.5 Total CO2 25 Base Excess -1 O2 Saturation 71 L O2 % 100 ABG pCO2 35.9 ABG pO2 36 L* Johnny Test Positive Respiration Rate 12 O2 Delivery Device BiPAP Tidal Volume 450 POC PEEP 14 Sodium Potassium Chloride Carbon Dioxide Anion Gap BUN Creatinine Estim Creat Clear Calc Est GFR (MDRD) Af Amer Est GFR (MDRD) Non-Af BUN/Creatinine Ratio Glucose Calcium POC Glucose 153 H Clinical Impression(s) from Imaging Studies Chest X-Ray 05/04/20 12:55 IMPRESSION: No change in acute or chronic interstitial lung disease. Interval resolution of left lower lobe pneumonia or atelectasis. Electronically Signed: Clifton Garza MD at 13:17 EST Tel , Service support , Chest X-Ray 05/05/20 05:55 IMPRESSION: Chronic interestitial changes. Additional airspace the likely representing pneumonia, similar in severity to the previous study . at 0507 Reported and signed by: Barry Alejo MD Electronically Signed: Barry Alejo MD at 5:06 EST Tel , Service support , Chest X-Ray 05/14/20 07:31 IMPRESSION: Unfavorable change. Bilateral reticular and groundglass opacities have progressed suggesting pneumonia (including viral causes) or pulmonary edema. 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 Electronically Signed: Wolf Ramirez MD ([place]) at 14:07 EST , Service support , Chest X-Ray 05/18/20 06:45 IMPRESSION: Since prior study, there has been a progression of the bilateral pulmonary infiltrates in a preferential peripheral distribution. Electronically Signed: Dany Crabtree, at 8:44 EST , Service support , Medical Necessity - Tobacco Use Smoking Status: Former smoker Tobacco Use: Cigarettes Assessment/Plan All Active Problems (Last Reviewed 05/04/20 @ 14:[address] Daphne Patel, DO) CHF exacerbation (Acute) Non-ST elevation myocardial infarction (NSTEMI) (Acute) CHF (congestive heart failure) (Acute) Cardiomyopathy (Acute) COVID-19 (Acute) Acute respiratory failure (Acute) NSTEMI (non-ST elevated myocardial infarction) (Resolved) RECOMMENDATIONS: 1. Continue patient on assist control mode of mechanical ventilation and wean FiO2 and PEEP to maintain saturations at or above 90%. 2. Continue vasopressor support to maintain a mean arterial pressure at or above 65 mmHg. 3. Obtain repeat arterial blood gas in 1 hour. 4. Obtain sputum culture along with respiratory viral panel. 5. Start empiric antimicrobials, pending infectious work-up. 6. Restart Decadron 6 mg IV daily. 7. Check troponin, BNP and procalcitonin. IMPRESSIONS: 1. Acute on chronic hypoxemic respiratory failure secondary to combined decompensated heart failure and COVID-19 pneumonia The patient was initially admitted to the hospital on May 04 with COVID-19 pneumonia. She completed treatment courses of both remdesivir and Decadron. However, the patient remained quite tenuous from a respiratory perspective. She was aggressively diuresed due to her underlying heart failure, but continue to require combination of BiPAP and heated high flow oxygen. Despite aggressive management, the patient continued to decompensate and required transfer to the ICU and subsequent intubation on May 20. The patient was profoundly hypoxemic, but did not tolerate APRV mode of mechanical ventilation. Therefore, the patient was transition to assist control with high PEEP and FiO2 requirements. She will remain aggressively sedated on propofol and fentanyl, with plans to initiate pharmacologic paralysis, if needed. 2. Distributive shock Hypotension developed as a consequence of sedative medication use. However, I cannot discount the possibility of a superimposed bacterial pulmonary infection. Accordingly, the patient will be continued on vasopressor support to maintain a mean arterial pressure at or above 65 mmHg. Central venous catheter has been placed to facilitate vasoactive medication delivery. 3. Acute on chronic kidney disease Likely prerenal in etiology. Diuretic regimen was decreased given rising creatinine. Recommend rechecking morning labs. If renal function tolerates, continue attempts at diuresis. 4. History of ischemic cardiomyopathy/hypertension/hyperlipidemia/peripheral vascular disease/diabetes mellitus/questionable COPD/obesity Complicates care, management, recovery and prognosis. Continue home medications as tolerated. Continue Coumadin and check INR daily. UPDATE: Upon further discussion with the patient's family, and son, present at the bedside, and in light of the patient's continued clinical decompensation and overall poor prognosis, they have decided to proceed with palliative withdrawal of life support. CODE STATUS will be updated to DNR comfort care. Palliative medications will be administered prior to extubation. TIME of : 903 on May 20, 2020. TIME: 90 minutes, inclusive of procedures, was spent addressing the patient's acute on chronic hypoxemic respiratory failure, decompensated heart failure, COVID-19 pneumonia, acute on chronic kidney disease, distributive shock, review of all d carl and collaboration with the care team. ([id number]) Procedures: 25378 Critial Care Addl 30 Min 9xxxx: [id number] Critical care first hour
[2020-05-20] MEDS: 0.9% Normal Saline 1,000 ML 999 ML IV (05:45)
--- NOTE | 2020-05-20 05:50 | NURSING ---
Propofol turned off per Dr Bose order. bp 70/36, hr 82, vent 100% TV 450, peep14, [id number] rate 14. Dr Shah at bedside.
--- NOTE | 2020-05-20 05:59 | NURSING ---
Dr Shah at bedside, rr 24, 40% fi02
--- NOTE | 2020-05-20 06:01 | NURSING ---
5cc phenylephrine given per Dr de la paz verbal order
--- NOTE | 2020-05-20 06:03 | NURSING ---
Dr Joel at [facility], Dr beltran at [facility]
--- NOTE | 2020-05-20 06:05 | NURSING ---
5cc phenyleprine given per Dr Joel order.
--- NOTE | 2020-05-20 06:07 | NURSING ---
Levophed started 10mcg, BIS monitor be3ing applied
--- NOTE | 2020-05-20 06:12 | NURSING ---
10ml propofol given
--- NOTE | 2020-05-20 06:15 | NURSING ---
100mg succinylcholine given per Dr Joel
[2020-05-20 06:16] LABS: Base Excess -3 mmol/L (-2 to +2); Bicarbonate 22.8 mmol/L (22-26); Blood Gas Specimen Type ART; FI02 100; Mode AC; O2 Delivery Device Adult Vent; PEEP 14; PO2 36 mmHG (75-100); RR 14; SITE R Radial; SO2 65 % (95-99); Total Carbon Dioxide 24 mmol/L; Vt 450; pCO2 42.2 mmHg (35-45); pH 7.34 (7.35-7.45)
--- NOTE | 2020-05-20 06:26 | NURSING ---
Addendum entered by Monica Falcon 05/20/20 08:06: levo at 20mcg Original Note: levo 10cmg, propfol 20mcg, fentanyl 20 mcg BISS 48 TV 400, pep 20, fio2 100%
--- NOTE | 2020-05-20 06:36 | NURSING ---
propofol up to 5omcg/kg/min per dr Joel verbal order.
--- NOTE | 2020-05-20 06:36 | NURSING ---
125/32, hr 79, rr 21, 87%fio2 100%. tv 400, peep 20,
--- NOTE | 2020-05-20 06:46 | CPS ---
Critical ABG results read back to Dr. Shah
--- NOTE | 2020-05-20 06:48 | CPS ---
Critical ABG results read back to Dr. Joel
--- NOTE | 2020-05-20 07:12 | PN_ITS ---
Patient Problems: Active and Suspected Problems (Last Reviewed 05/04/20 @ 14:[address] Daphne Patel DO) CHF exacerbation (Acute) Non-ST elevation myocardial infarction (NSTEMI) (Acute) Cardiomyopathy (Acute) COVID-19 (Acute) Acute respiratory failure (Acute) Objective: GENERAL: HEENT: Atraumatic; EYES; Anicteric, Normal Conjunctiva NECK; supple, normal thyroid, RESPIRATORY: Diminished to auscultation CARDIOVASCULAR: Regular S1 S2, GI: soft, normoactive bowel sounds, : No Renal angle tenderness; EXTREMITIES: No edema, no clubbing, MUSCULOSKELETAL: no muscle waisting NEURO: SKIN: No Rash PSYCH; Vitals/I&O's: Vital Signs Temp Pulse Resp BP Pulse Ox 98.6 F 78 14 86/23 L 79 05/20/20 03:41 05/20/20 06:20 05/20/20 06:17 05/20/20 06:20 05/20/20 06:17 Oxygen Flow Rate (L/min) 60 Oxygen Delivery Method Mechanical Ventilator Weight: 82 kg Body Mass Index (BMI) 30.5 Intake and Output for Last 24 Hours 05/18/20 05/19/20 05/20/20 23:59 23:59 23:59 Intake Total 1500 / 1500 50 / 290 240 / 240 Output Total 550 / 550 225 / 225 Balance 950 / 950 -175 / 65 240 / 240 Laboratory Results 05/19/20 07:08: Sodium 128 L, Potassium 4.4, Chloride 96 L, Carbon Dioxide 26.0, Anion Gap 6, BUN 70 H, Creatinine 1.84 H, Estim Creat Clear Calc 26.25, Est GFR (MDRD) Af Amer 35 L, Est GFR (MDRD) Non-Af 29 L, BUN/Creatinine Ratio 38.0 H, Glucose 127 H, Calcium 8.2 L 05/19/20 07:08: PT 26.9 H, INR 2.5 05/19/20 11:14: POC Glucose 273 H 05/19/20 16:17: POC Glucose 136 H 05/19/20 21:46: POC Glucose 153 H 05/20/20 03:58: Specimen Type ART, Sample Site L Radial, pH 7.42, Bicarbonate Actual 23.5, Total CO2 25, Base Excess -1, O2 Saturation 71 L, O2 % 100, ABG pCO2 35.9, ABG pO2 36 L*, Johnny Test Positive, Respiration Rate 12, O2 Delivery Device BiPAP, Tidal Volume 450, POC PEEP 14 05/20/20 06:09: Specimen Type ART, Sample Site R Radial, pH 7.34 L, Bicarbonate Actual 22.8, Total CO2 24, Base Excess -3 L, O2 Saturation 65 L, O2 % 100, ABG pCO2 42.2, ABG pO2 36 L*, Respiration Rate 14, O2 Delivery Device Adult Vent, Ve nt Mode AC, Tidal Volume 450, POC PEEP 14 Current Medications Acetaminophen (Acetaminophen 325 Mg Tablet) 650 mg PO Q6H PRN PRN PRN Reason: Pain Score 1-10/Temp > 100.7 F Last Admin: 05/09/20 00:59 Dose: 650 mg Documented by: Al Hydroxide/Mg Hydroxide (Mag Hydrox/Al Hydrox/Simeth 30 Ml Udc) 30 ml PO Q6H PRN PRN PRN Reason: Gastric Burning Albuterol Sulfate (Albuterol Sulfate 8 Gm Inhaler (60 Puffs)) 1 puff INHALATION Q4H PRN PRN PRN Reason: SOB/Wheezing Last Admin: 05/06/20 05:19 Dose: 1 puff Documented by: Allopurinol (Allopurinol 100 Mg Tablet) 100 mg PO BID [facility] Last Admin: 05/19/20 21:43 Dose: 100 mg Documented by: Chlorhexidine Gluconate (Chlorhexidine 15 Ml) 15 ml PO BID [facility] Clopidogrel Bisulfate (Clopidogrel Bisulfate 75 Mg Tablet) 75 mg PO DAILY [facility] Last Admin: 05/19/20 10:47 Dose: 75 mg Documented by: Docusate Sodium (Docusate Sodium 100 Mg Capsule) 100 mg PO BID PRN PRN PRN Reason: Constipation Last Admin: 05/09/20 00:59 Dose: 100 mg Documented by: Sodium Chloride () 250 mls @ 15 mls/hr IV .[id number] PRN PRN Reason: Saline Flush Last Infusion: 05/06/20 06:05 Dose: 0 mls/hr Documented by: Sodium Chloride () 250 mls @ 15 mls/hr IV .[id number] PRN PRN Reason: Additional IVPB Infusion Fentanyl Citrate 1,000 mcg/ (Sodium Chloride) 100 mls @ 5 mls/hr CONT INF .Q20H [facility]; Protocol Last Admin: 05/20/20 05:05 Dose: 10 mcg/hr, 1 mls/hr Documented by: Propofol (Diprivan) 1,000 mg in 100 mls @ 4.92 mls/hr CONT INF .Q12H [facility]; Protocol Last Admin: 05/20/20 05:05 Dose: 10 mcg/kg/min, 4.9 mls/hr Documented by: Famotidine 20 mg/ Sodium (Chloride) 10 mls @ 300 mls/hr IV Q12 [facility] Norepinephrine Bitartrate 8 mg (/ Sodium Chloride) 250 mls @ 9.375 mls/hr CONT INF .[id number] [facility]; Protocol Cisatracurium Besylate 100 mg/ (Sodium Chloride) 250 mls @ 24.6 mls/hr CONT INF .[id number] [facility]; Protocol Vasopressin 20 units/ Sodium (Chloride) 25 mls @ 3 mls/hr IV .[id number] [facility] Last Admin: 05/20/20 06:48 Dose: 0.04 units/min, 3 mls/hr Documented by: Piperacillin Sod/Tazobactam (Sod 3.375 gm/ Sodium Chloride) 50 mls @ 12.5 mls/hr IV Q8 [facility] Vancomycin IV Pharmacy to Dose (1 ea/ Sodium Chloride) 500 mls @ 250 mls/hr IV X1 PRN; Protocol PRN Reason: Rx to Dose Insulin Glargine (Insulin Glargine 100 Units/Ml Pen) 10 units SC BID [facility] Last Admin: 05/19/20 21:44 Dose: 10 units Documented by: Insulin Human Lispro (Insulin Lispro 100 Unit/Ml Insuln.Pen) 0 unit SC ACHS [facility]; Protocol Last Admin: 05/19/20 21:47 Dose: 1 u Documented by: Miscellaneous Information (Inhaler, Assist Devices 1 Each Spacer) 1 each I NHALATION Q4HWA PRN PRN Reason: INHALER USE Nystatin (Nystatin Powder 15gm Bottle) 1 applic TOPICAL BID [facility]; Protocol Last Admin: 05/19/20 21:44 Dose: 1 applicatio Documented by: Ondansetron HCl (Ondansetron 4 Mg/2 Ml Vial) 4 mg IV Q8H PRN PRN PRN Reason: NAUSEA/VOMITING Last Admin: 05/17/20 10:29 Dose: 4 mg Documented by: Pantoprazole Sodium (Pantoprazole Sodium 40 Mg Tablet) 40 mg PO DAILY [facility] Last Admin: 05/19/20 10:47 Dose: 40 mg Documented by: Pravastatin Sodium (Pravastatin 80 Mg Tablet) 80 mg PO QHS [facility] Last Admin: 05/19/20 21:43 Dose: 80 mg Documented by: Sertraline HCl (Sertraline 100 Mg Tablet) 100 mg PO DAILY [facility] Last Admin: 05/19/20 10:48 Dose: 100 mg Documented by: Sodium Chloride (0.9% Saline Lock 10 Ml Syringe) 10 - 40 ml IV UD PRN PRN Reason: SALINE FLUSH Last Admin: 05/20/20 04:34 Dose: 20 ml Documented by: Sodium Chloride (Sodium Chloride 0.65% 1 [place].Btl) 1 spray NASAL TID PRN PRN PRN Reason: NASAL DRYNESS Last Admin: 05/11/20 21:46 Dose: 1 spray Documented by: Throat Lozenges (Benzocaine/Menthol 1 Lozenge) 1 lozenge MUCOUS MEM Q2H PRN PRN PRN Reason: SORE THROAT Last Admin: 05/18/20 22:08 Dose: 1 lozenge Documented by: Warfarin Sodium (Warfarin 1 Mg Tablet) 1 mg PO DAILY@1700 [facility] Last Admin: 05/19/20 16:19 Dose: 1 mg Documented by: STROKE Vital Signs/Narrative: Vital Signs Temp Pulse Resp BP Pulse Ox 05/20/20 06:20 78 86/23 L 05/20/20 06:17 70 14 96/27 L 79 05/20/20 06:09 80 81/59 L 05/20/20 05:57 81 24 H 70/30 L 47 05/20/20 04:59 78 26 H 65 05/20/20 03:41 98.6 F 77 33 H 87/67 L 85 05/20/20 03:40 84 Medical Necessity - Tobacco Use Smoking Status: Former smoker Tobacco Use: Cigarettes Assessment/Plan All Active Problems (Last Reviewed 05/04/20 @ 14:[address] Daphne Patel DO) CHF exacerbation (Acute) Non-ST elevation myocardial infarction (NSTEMI) (Acute) CHF (congestive heart failure) (Acute) Cardiomyopathy (Acute) COVID-19 (Acute) Acute respiratory failure (Acute) NSTEMI (non-ST elevated myocardial infarction) (Resolved) Patient is a 70-year-old lady admitted with progressive shortness of breath diagnosed with acute COVID-19 pneumonia 1. Acute hypoxic respiratory failure due to combination of COVID-19 pneumonia as well as CHF - ?05/16/2020; patient seen still requiring high flow oxygen. - 05/17/20; patient still requires high flow oxygen however she has not been wearing the oxygen consistently. Plan is for patient to be assessed for home oxygen needs with possibility of patient being discharged home with home oxygen. She has been offered SNF versus LTAC patient declined. -05/18/20; patient respiratory status deteriorated resulting in patient being placed on flow oxygen Air[employer] - 05/19/2020; patient tolerated BiPAP during the night. Awaiting insurance precertification prior to patient being transferred to LTAC 2. Acute COVID-19 pneumonia ?Patient finished a course of dexamethasone and remdesivir 3. Acute on chronic congestive heart failure with reduced ejection fraction -Patient is on Lasix -05/18/2020 adjusted dose of Lasix in view of worsening kidney function -05/19/2020; Kidney function continues to worsen. Discontinued Lasix 4. Coumadin induced coagulopathy ?Coumadin on hold monitoring INR 5. Chronic kidney disease stage III ?Kidney function at baseline - slight worsening of kidney function. Lasix dose adjusted as discussed above. 6. Coronary artery disease ?With previous history of non-STEMI 7. Ischemic cardiomyopathy ?With EF of 5% 8. Diabetes mellitus type II -patient's oral hypoglycemics held. -Placed on long acting insulin, Accu-Cheks a.c. and at bedtime and covered with sliding scale insulin 9. Hyponatremia ?Secondary to fluid overload status from patient CHF patient receiving diuresis with subsequent monitoring of electrolyte 10. Physical deconditioning - Requested for PT OT eval and health social work professor to assist with discharge planning -05/18/2020; patient had initially declined being discharged to SNF versus LTAC however did discuss with patient about at least considering LTAC to wean her off oxygen prior to going home 11. DVT prophylaxis -patient is on Coumadin
--- NOTE | 2020-05-20 07:30 | RAD_ITS ---
STUDY: X-RAY CHEST REASON FOR EXAM: Female, 70 years old. central line placement. TECHNIQUE: Single AP portable view of the chest. COMPARISON: 05/20/2019 05/09/2009 FINDINGS: Interval placement of right internal jugular deep venous line with tip the catheter overlying the superior vena cava and no pneumothorax. Endotracheal tube and nasogastric tube both which are unchanged. No change in alveolar opacities in both lungs consistent with bilateral pneumonia. There is no demonstrated pleural abnormality. Normal size heart. Normal mediastinum and mignon. Normal visualized pulmonary arteries. Normal visualized aortic arch and descending thoracic aorta. Normal visualized thoracic spine. Normal visualized ribs, clavicles, and shoulders. There is no demonstrated abnormality of the visualized soft tissue structures of the upper abdomen. RAD/Chest 1 View (Portable) IMPRESSION: 1. Interval placement of right internal jugular deep venous line with tip the catheter overlying the superior vena cava and no pneumothorax. 2. Endotracheal tube and nasogastric tube both which are unchanged. 3. No change in bilateral pneumonia. Electronically Signed: Clifton Garza MD at 8:24 EST Tel , Service support ,
[2020-05-20] MEDS: Morphine 2 MG/ML Syringe IV (08:20)
[2020-05-20] MEDS: LORazepam 2 MG/ML Syringe IV (08:20)
--- NOTE | 2020-05-20 08:33 | NURSING ---
This RN spoke at length w/pt's and son re VS, meds, vent settings, POC. They are concerned they are putting her through all this and she wont' make it anyway. son and to pt room 0800 Dr. Joel in pt room w/family, disc POC. decision to terminally extubate. 0820 extubated to room air. Ativan 2mg and Morphine 4mg IV given. all drips dc'd 0842 family has said their goodbys and are heading home.
--- NOTE | 2020-05-20 09:05 | NURSING ---
0904 apneic, asystolic. Dr. Joel notified.
--- NOTE | 2020-05-20 09:55 | PCM.DEATH ---
Preliminary Cause of Acute COVID-19 pneumonia Date of Admission: 05/04/20 Date of : 05/20/20 - Principle Diagnosis Acute hypoxic respiratory failure Acute COVID-19 pneumonia Acute on chronic systolic heart failure Problem List: Active and Suspected Problems (Last Reviewed 05/04/20 @ 14:[address] Daphne Patel, DO) CHF exacerbation (Acute) Non-ST elevation myocardial infarction (NSTEMI) (Acute) Cardiomyopathy (Acute) COVID-19 (Acute) Acute respiratory failure (Acute) Hospital Course Patient is a 70-year-old lady admitted with progressive shortness of breath diagnosed with acute COVID-19 pneumonia. Patient was admitted to the hospital treated per protocol completed a course of dexamethasone as well as remdesivir. Patient hospital stay also complicated by development of acute congestive heart failure with due to ejection fraction. Patient was managed with diuretics which was discontinued following impairments in her kidney function. Plan was for patient to have been discharged to a half-way facility however her respiratory status deteriorated rather rapidly. Was initially placed on noninvasive ventilation with BiPAP she did not respond to treatment resulting in patient being intubated. Patient was unable to ventilate despite being on optimal vent settings. Discussions held with family decision made to terminally wean patient off the vent. Patient ceased spontaneous breathing and was with a heart tones on 0904 at 05/20/2020. Patient was pronounced . Inpatient E&M: [id number] [facility]
== END 2020-05-20 09:04 | DRG 208 ==
LOC: ED 13:16 → ICU 14:17 → MS2 05-06 13:45 → ICU 05-20 03:31
PROVIDERS: Family Medicine; Internal Medicine; Internal Medicine Critical Care Medicine; Admitting Provider Internal Medicine; Emergency Provider Emergency Medicine; PCP Family Medicine; Visit Provider Internal Medicine
DX: U07.1 COVID-19 (principal); J12.82 Pneumonia due to coronavirus disease 2019; J96.21 Acute and chronic respiratory failure with hypoxia; I21.4 Non-ST elevation (NSTEMI) myocardial infarction; I50.43 Acute on chronic combined systolic (congestive) and diastolic (congestive) heart failure; J44.0 Chronic obstructive pulmonary disease with (acute) lower respiratory infection; I13.0 Hypertensive heart and chronic kidney disease with heart failure and stage 1 through stage 4 chronic kidney disease, or unspecified chronic kidney disease; E87.2 Acidosis; D68.9 Coagulation defect, unspecified; E87.1 Hypo-osmolality and hyponatremia; D63.8 Anemia in other chronic diseases classified elsewhere; I25.10 Atherosclerotic heart disease of native coronary artery without angina pectoris; I25.5 Ischemic cardiomyopathy; L89.151 Pressure ulcer of sacral region, stage 1; E78.5 Hyperlipidemia, unspecified; E66.9 Obesity, unspecified; I27.20 Pulmonary hypertension, unspecified; F41.9 Anxiety disorder, unspecified; T45.515A Adverse effect of anticoagulants, initial encounter; K21.9 Gastro-esophageal reflux disease without esophagitis; F32.9 Major depressive disorder, single episode, unspecified; E87.6 Hypokalemia; R57.8 Other shock; N18.30 Chronic kidney disease, stage 3 unspecified; E11.22 Type 2 diabetes mellitus with diabetic chronic kidney disease; Z79.01 Long term (current) use of anticoagulants; Z79.02 Long term (current) use of antithrombotics/antiplatelets; Z68.31 Body mass index [BMI] 31.0-31.9, adult; Z88.6 Allergy status to analgesic agent; I25.2 Old myocardial infarction; Z87.891 Personal history of nicotine dependence; Z66 Do not resuscitate; Z79.899 Other long term (current) drug therapy; Z83.3 Family history of diabetes mellitus; Z85.41 Personal history of malignant neoplasm of cervix uteri; Z90.710 Acquired absence of both cervix and uterus; I07.1 Rheumatic tricuspid insufficiency; D72.810 Lymphocytopenia
CPT/HCPCS: 31500; 31720; 36415; 36600; 71045; 74018; 80048; 80053; 80076; 82803; 82962; 83605; 83735; 83880; 84100; 84484; 85025; 85027; 85610; 87040; 87070; 87205; 87426; 87633; 87635; 93005; 94002; 94003; 97110; 97116; 97162; 97165; 97530; 97535; 99251; 99285; J7030; J7050; A4216; G0463; J0330; J1940; J2405; J3010; J3490; U0002